=== PATIENT | female | born 1945 | race Caucasian/White ===

== ENCOUNTER 2018-04-09 16:10 | Outpatient (REF) | payer MEDICARE, OTHER, SELFPAY ==
[2018-04-09 21:59] LABS: COMMENT (LAB VIEW ONLY) 50.75 mg/dL; Microalb ug/mg Crea 13.2 ug/mg Cr
== END 2018-04-09 16:30 ==
LOC: NCHCN 16:10
PROVIDERS: PCP Internal Medicine; Visit Provider Internal Medicine
DX: E11.9 Type 2 diabetes mellitus without complications (principal); R51 Headache; F41.9 Anxiety disorder, unspecified; M85.571 Aneurysmal bone cyst, right ankle and foot
CPT/HCPCS: 82043; 82570

== ENCOUNTER 2019-10-19 14:45 | Outpatient (REF) | payer MEDICARE, OTHER, SELFPAY ==
[2019-10-19 21:05] LABS: COMMENT (LAB VIEW ONLY) 102.55 mg/dL; Microalb ug/mg Crea 18.4 ug/mg Cr
== END 2019-10-19 15:05 ==
LOC: NCHCN 14:45
PROVIDERS: PCP Internal Medicine; Visit Provider Internal Medicine
DX: E11.9 Type 2 diabetes mellitus without complications (principal)
CPT/HCPCS: 82043; 82570

== ENCOUNTER 2019-12-30 14:25 | Outpatient (REF) | payer MEDICARE, OTHER, SELFPAY ==
[2019-12-30 19:53] LABS: HCT 39.2 % (36.0-46.0); HGB 13.5 g/dL (12.0-15.5); Mean Corp. HGB Concentration 34.4 g/dL (32.0-36.0); Mean Corpuscular Hemoglobin 30.5 pg (27.0-33.0); Mean Corpuscular Volume 88.7 fL (80-95); Mean Platelet Volume 10.4 fL (8.0-11.0); Platelet Count 180 x1000/uL (130-400); RBC 4.42 m/cumm (4.00-5.20); RBC Distribution Width 13.2 % (11.7-14.6)
[2019-12-30 20:00] LABS: Anion Gap 7.6 mmol/L (3-11); BUN 17 mg/dL (7-18); CO2 27.4 mmol/L (21.0-32.0); CREATININE 0.96 mg/dL (0.55-1.02); Calcium 9.2 mg/dL (8.5-10.1); Chloride 102 mmol/L (98-107); Estimated GFR 56.81 (mL/min/1.73m2); Glucose 235 mg/dL (74-106); NT-proBNP 123 pg/mL (<300); Sodium 137 mmol/L (136-145)
[2019-12-30 20:02] LABS: Troponin I < 0.05 ng/mL (<0.06)
== END 2019-12-30 14:45 ==
LOC: NCHCN 14:25
PROVIDERS: PCP Internal Medicine; Visit Provider Internal Medicine
DX: I50.9 Heart failure, unspecified (principal); R06.01 Orthopnea
CPT/HCPCS: 80048; 85027; 83880; 84484

== ENCOUNTER 2020-07-25 17:46 | Outpatient (REF) | payer MEDICARE, OTHER, SELFPAY ==
[2020-07-25 20:28] LABS: MCH 30.8 pg (27.0-33.0); MCHC 34.1 % (32.0-36.0); MCV 90.1 fL (80-95); MPV 10.2 fL (8.0-11.0); Platelet Count 165 10^3/uL (130-400); RBC 4.55 10^6/uL (3.93-5.22); RDW 12.6 % (11.7-14.6); RDW-SD 41.4 fL; WBC 7.92 10^3/uL (4.4-10.8)
[2020-07-25 20:40] LABS: C-Reactive Protein 0.53 mg/dL (0.0-0.3)
[2020-07-25 21:00] LABS: ESR 20 mm/hr (0-30)
== END 2020-07-25 18:06 ==
LOC: NCHCN 17:46
PROVIDERS: PCP Internal Medicine; Visit Provider Internal Medicine
DX: M31.6 Other giant cell arteritis (principal); E11.9 Type 2 diabetes mellitus without complications
CPT/HCPCS: 85027; 85652; 86140

== ENCOUNTER 2021-02-07 19:01 | Outpatient (REF) | payer MEDICARE, MEDICAID, SELFPAY ==
[2021-02-07 19:47] LABS: HCT 40.7 % (36.0-46.0); MCHC 34.4 % (32.0-36.0); MCV 90.2 fL (80-95); MPV 10.4 fL (8.0-11.0); Platelet Count 191 10^3/uL (130-400); RBC 4.51 10^6/uL (3.93-5.22); RDW 12.9 % (11.7-14.6); RDW-SD 42.3 fL; WBC 6.95 10^3/uL (4.4-10.8)
[2021-02-07 20:24] LABS: D-Dimer 489 ng/mlFEU (<500)
== END 2021-02-07 19:02 | disposition home or self-care (01) ==
LOC: NCHCN 19:01
PROVIDERS: PCP Internal Medicine; Visit Provider Internal Medicine
DX: I26.99 Other pulmonary embolism without acute cor pulmonale (principal)
CPT/HCPCS: 85027; 85379

== ENCOUNTER 2021-03-27 16:15 | Outpatient (REF) | payer MEDICARE, MEDICAID, SELFPAY ==
[2021-03-27 20:25] LABS: D-Dimer 520 ng/mlFEU (<500)
== END 2021-03-27 16:16 | disposition home or self-care (01) ==
LOC: NCHCN 16:15
PROVIDERS: PCP Internal Medicine; Visit Provider Nurse Practitioner Family
DX: R07.9 Chest pain, unspecified (principal)
CPT/HCPCS: 85379

== ENCOUNTER 2021-04-11 19:46 | Outpatient (REF) | payer MEDICARE, MEDICAID, SELFPAY ==
[2021-04-13 15:08] LABS: COVID-19 RT-PCR UVMMC Result Negative (Negative)
== END 2021-04-11 19:47 | disposition home or self-care (01) ==
LOC: NCHCN 19:46
PROVIDERS: PCP Internal Medicine; Visit Provider Physician Assistant
DX: Z20.822 Contact with and (suspected) exposure to COVID-19 (principal); J06.9 Acute upper respiratory infection, unspecified
CPT/HCPCS: U0003; U0005

== ENCOUNTER 2021-08-08 11:43 | Outpatient (REF) | payer SELFPAY ==
--- NOTE | 2021-08-08 | DI.NM_ITS ---
APPROVED REPORT Exam: Pharmacologic Patient Location: In-Patient Room/Bed: [facility] Stress Nurse: Becca Angelo RN Ordering Provider:CALE SPENCER MD Contact Number: [phone] BMI: 25.96 Baseline Rhythm: Sinus Rhythm Comment: Flipped T waves leads V2 and V3 Indications: Chest pain Medical History Medical History: Hypertension, hyperlipidemia, asthma, diabetes, CVD Cardiac Medications: Aspirin, eliquis, metoprolol succinate, novalog, omeprazole, rosuvastatin, tresi ba insulin Allergies: bee sting, metformin, trulicity Cardiac Risk Factors: Hypertension, hyperlipidemia, asthma, diabetes, CVD, family hx Previous Cardiac Procedures: NIESHA x2 (-2017) Pretest Chest Pain Characteristics: baseline L side chest tightness 2/10 Exercise History: Sedentary Physical Disabilities: None Lung Sounds: Clear to auscultation Heart Sounds: Regular Stress Test Details Test: Pharmacologic stress testing performed using 0.4 mg of regadenoson per 5 mL given IV over 10 s econds. Reason for pharmacologic stress test: physical limitation. Nuclear Acquisition: Rest Tc-99m/Stress Tc-99m 1 day Rest Isotope: Tc-99m Sestamibi. Dose: 10.2 Date: 08/08/2021 Injection Time: 1045 Stress Isotope: Tc-99m Sestamibi. Dose: 32.1 Date: 08/08/2021 Injection Time: 1235 HR Resting HR Supine: 64 bpm Max Heart Rate (APMHR): 144.779667 bpm Target HR (85% APMHR): 122.669797 bpm Max HR Achieved: 96 bpm % of APMHR: 66.67 Recovery HR: 84 bpm Comment: Metoprolol succinate not held prior to testing. BP Resting BP Supine: 136/68 mmHg Max BP: 142/62 mmHg Recovery BP: 124/58 mmHg ECG Resting ECG: Sinus Rhythm, Flipped T waves leads V2 and V3 Ectopy: None Stress ECG: Sinus Rhythm, Flipped T waves leads V2 and V3 ST Change: No significant ST segment changes noted Arrhythmia: Rare PAC Recovery ECG: Sinus Rhythm, Flipped T waves leads V2 and V3 Recovery ST Change: No significant ST segment changes noted Recovery Arrhythmia: None Clinical Stress Symptoms: Chest burning, dyspnea, nausea Rate Pressure Product: [id number] Stress ECG Conclusion 1. Resting electrocardiogram showed nondiagnostic ST-T abnormalities 2. Patient underwent pharmacologic stress with regadenoson 3. Peak heart rate achieved was 66% of predicted for age 4. Electrocardiographically the test was nondiagnostic due to inadequate heart rate 5. No dysrhythmias were noted Stress Test Summary STAGE HR BP Symptoms NOTES Supine 64 136/68 1 min post Lexiscan injection 74 142/62 SpO2 95% Pt reported mild burning in chest, mild dyspnea 3 min post Lexiscan injection 89 136/56 SpO2 96% Burning in chest and dyspnea resolved. Pt reports mi ld nausea. 6 min post Lexiscan injection 84 124/58 SpO2 95% Nausea resolved. MPI Conclusion Normal myocardial perfusion without evidence of ischemia or prior infarction EF 71% Radiologist Interpretation Radiologist Interpretation by: Tang Girodano MD Interpretation Date/Time: 08/08/2021 17:00:17
[2021-08-08] MEDS: Regadenoson 0.4 MG/5 ML SYR IVP (14:40)
== END 2021-08-08 12:03 ==
LOC: DI 11:43
PROVIDERS: PCP Internal Medicine; Visit Provider Internal Medicine Interventional Cardiology
DX: R07.9 Chest pain, unspecified (principal); R94.31 Abnormal electrocardiogram [ECG] [EKG]; I10 Essential (primary) hypertension; E78.5 Hyperlipidemia, unspecified; J45.909 Unspecified asthma, uncomplicated; E11.9 Type 2 diabetes mellitus without complications; I25.10 Atherosclerotic heart disease of native coronary artery without angina pectoris; Z82.49 Family history of ischemic heart disease and other diseases of the circulatory system; R94.39 Abnormal result of other cardiovascular function study
CPT/HCPCS: 78452; 93016; 93018; 93017; J2785

== ENCOUNTER 2021-11-21 11:16 | Outpatient (REF) | payer MEDICARE, MEDICAID, SELFPAY ==
[2021-11-21 19:29] LABS: HCT 38.9 % (36.0-46.0); HGB 12.7 g/dL (11.2-15.7); MCH 29.7 pg (27.0-33.0); MCHC 32.6 % (32.0-36.0); MCV 91.1 fL (80-95); MPV 10.4 fL (8.0-11.0); Platelet Count 221 10^3/uL (130-400); RBC 4.27 10^6/uL (3.93-5.22); RDW-SD 42.6 fL; WBC 8.85 10^3/uL (4.4-10.8)
[2021-11-21 19:32] LABS: ESR 21 mm/hr (0-30)
[2021-11-21 20:01] LABS: C-Reactive Protein 2.47 mg/dL (0.0-0.3); Uric Acid 2.9 mg/dL (2.6-6.0)
[2021-11-21 20:45] LABS: Vitamin B12 382 pg/mL (193-986)
[2021-11-22 17:35] LABS: Rheumatoid Factor <8.6 IU/mL (<12.0)
[2021-11-22 20:01] LABS: Cyclic Citrullinated Peptide <2.5 U/mL (<5.0)
== END 2021-11-21 11:17 | disposition home or self-care (01) ==
LOC: NCHCN 11:16
PROVIDERS: PCP Internal Medicine; Visit Provider Internal Medicine
DX: M06.9 Rheumatoid arthritis, unspecified (principal); R26.89 Other abnormalities of gait and mobility; E11.9 Type 2 diabetes mellitus without complications; I10 Essential (primary) hypertension
CPT/HCPCS: 85027; 85652; 86200; 82607; 84550; 86140; 86431

== ENCOUNTER 2022-01-06 08:54 | Day surgery (SDC) | payer MEDICARE, MEDICAID, SELFPAY ==
--- NOTE | 2022-01-06 07:52 | W.ANESPRE ---
General Info Date of Service Date Performed: 01/06/22 Height: 5 ft 2 in Weight: 65.317 kg Body Mass Index (BMI): 26.3 Surgical Procedure: Operation Date: 01/06/22 11:40 Proposed Procedure Side Surgeon p Cataract Extraction with IOL Implant Right Billy Haile MD Meds Allergies and Home Medications Allergies Allergy/AdvReac Type Severity Reaction Status Date / Time bee venom protein (honey bee) Allergy Severe Anaphylaxis Verified 01/06/22 09:22 dulaglutide [From Trulicity] Allergy Intermediate Verified 01/06/22 09:22 ibuprofen Allergy Intermediate Verified 01/06/22 09:22 linagliptin [From Tradjenta] Allergy Intermediate Verified 01/06/22 09:22 metformin Allergy Mild Verified 01/06/22 09:22 pantoprazole Allergy Mild Verified 01/06/22 09:22 Home Medication Medication Instructions Recorded albuterol sulfate 90 mcg/actuation 2 puff inhalation DIRECTED PRN 01/02/22 aerosol inhaler (ProAir HFA) aspirin 81 mg tablet,delayed 81 mg PO DAILY 01/02/22 release epinephrine 0.3 mg/0.3 mL 0.3 mg IM DIRECTED 01/02/22 injection, auto-injector fluoxetine 20 mg capsule 20 mg PO DAILY 01/02/22 insulin aspart U-100 100 unit/mL 2 - 10 unit subcut BID 01/02/22 (3 mL) subcutaneous pen (Novolog Flexpen U-100 Insulin aspart) insulin glargine U-300 conc 300 100 unit subcut DAILY 01/02/22 unit/mL (1.5 mL) subcutaneous pen (Toujeo SoloStar U-300 Insulin) loratadine 10 mg disintegrating 10 mg PO DAILY 01/02/22 tablet (Claritin RediTabs) lorazepam 0.5 mg tablet 0.5 mg PO DAILY PRN 01/02/22 metoprolol succinate 25 mg 25 mg PO DAILY 01/02/22 tablet,extended release 24 hr omeprazole 20 mg capsule,delayed 20 mg PO DAILY 01/02/22 release rosuvastatin 40 mg tablet (Crestor) 40 mg PO DAILY 01/02/22 Current Visit Medications: Current Medications Generic Name Dose Route Start Last Admin Trade Name Freq PRN Reason Stop Dose Admin Acetaminophen 1,000 mg 01/06/22 06:00 Acetaminophen 500 Mg Tab PO 01/06/22 16:00 Q4H PRN PRN Miscellaneous Medication 0 ml 01/06/22 06:00 Prednisolone 1%, Moxifloxacin 0.5%, Nepafenac 0.1% 5ml Btl OD 01/06/22 16:00 DIRECTED [facility] Miscellaneous Medication 0 ml 01/06/22 06:00 Tropicam./Phenyleph. (1/2.5%) 5 Ml Btl OD 01/06/22 16:00 DIRECTED [facility] Tetracaine HCl 0 ml 01/06/22 06:00 Tetracaine 0.5% 4 Ml Btl OD 01/06/22 16:00 DIRECTED [facility] PFSH Medical History Medical History (Updated 01/06/22 @ 09:25 by Katharine Gil) Allergic rhinitis Atypical chest pain Pt. states she does not currently has this and it has been worked up CAD (coronary artery disease) Cataract Diabetes History of asthma Hx of gastroesophageal reflux (GERD) Rheumatoid arthritis Surgical History Surgical History (Updated 01/06/22 @ 09:22 by Katharine Gil) Hx of Achilles tendon repair Hx of cardiac catheterization 2018 Hx of hysterectomy Hx of tonsillectomy S/P PTCA (percutaneous transluminal coronary angioplasty) x2 stents-F/U with cardiology in [place] Tobacco Smoking/Tobacco Use Status: Never Alcohol Alcohol Intake: never Substance Use Substance use: Never Substance use type: does not use Vital Signs and Lab Results Lab Results Blood Type / Crossmatch: No Data to Display Complete Blood Count: No Data to Display Complete Metabolic Panel: No Data to Display Liver Function Panel: No Data to Display Coagulation Panel: No Data to Display Cardiac Panel: No Data to Display Arterial Blood Gas: No Data to Display Venous Blood Gas: No Data to Display Pancreas Panel: No Data to Display Thyroid Panel: No Data to Display Infectious Disease: No Data to Display Blood Cultures: No Data to Display Toxicology Panel: No Data to Display Imaging and Studies Imaging and Studies Study information below may be from another EMR and interpreted by another provider. Please see original notes in EMR for more complete details. Stress Test Summary: Stress ECG Conclusion 1. Resting electrocardiogram showed nondiagnostic ST-T abnormalities 2. Patient underwent pharmacologic stress with regadenoson 3. Peak heart rate achieved was 66% of predicted for age 4. Electrocardiographically the test was nondiagnostic due to inadequate heart rate 5. No dysrhythmias were noted Anesthesia Assessment and Plan Anesthesia History Personal History: No History of Anesthesia Complications Family History: No Family History of Anesthesia Complications Exercise Tolerance Exercise Tolerance: Metabolic Equivalents>4 Pertinent Negatives Pertinent Negatives: No Symptoms of GERD, No Major Pulmonary Symptoms or Complaints and No History of CVA/TIA Cardiac & Pulmonary Exam Cardiac Exam: Normal S1/S2 Heart Sounds Pulmonary Exam: Clear Bilateral Breath Sounds Implantable Cardiac Device Does patient have a Pacemaker or an ICD?: No Airway Exam Known Difficult Airway: No Mallampati Class: 2 Mouth Opening: Normal (> 3cm) Thyromental Distance: Greater than 3 cm Neck Range of Motion: Full ROM Neck Circumference: Normal Teeth Condition: Normal Dentition ASA Classification ASA Score: ASA 2 Emergency Case?: No NPO Status NPO Status: NPO Clears >2 hours, Solids >8 hours Anesthesia Plan Resuscitation Status: Full Code Anesthesia Technique: MAC Anesthesia Airway Planned: Natural Airway Monitors Used: Standard Monitors Preoperative Comments:: GERD incidental to food, well controlled now. No recent Asthma exacerbations. Patient would like an MKO.
[2022-01-06] MEDS: Tropicam./Phenyleph. (1/2.5%) 5 ML BTL OD ×3 (09:27→09:39)
[2022-01-06 09:28] VITALS: BP 146/65; PULSE 64; RESP 16; TEMP 36.3; O2SAT 98
[2022-01-06 09:40] VITALS: BMI 26.3
[2022-01-06] MEDS: Tetracaine 0.5% 4 ML BTL OD (10:30)
[2022-01-06] MEDS: Duovisc Viscoelastic System EACH 1 EACH (10:35)
[2022-01-06] MEDS: Balanced Salt Soln.-PLUS 500 ML BAG (10:35)
[2022-01-06] MEDS: Lidocaine 2% Jelly 6 ML SYR (10:35)
[2022-01-06] MEDS: Povidone-Iodine Ophth 30 ML BTL (10:35)
[2022-01-06 10:53] VITALS: BP 119/58; PULSE 68; RESP 16; TEMP 36.5; O2SAT 96
--- NOTE | 2022-01-06 10:54 | ROE_ITS ---
Date of service: 01/06/22 Time of Service: 09:54 Operative Note Operative Note DATE OF PROCEDURE: 01/06/22 PRE-OP DIAGNOSIS: Nuclear/cortical cataract, right eye POST-OP DIAGNOSIS: same PROCEDURE: Cataract extraction using phacoemulsification with intraocular lens implant, right eye SURGEON: Billy Haile ANESTHESIA TYPE: Local By Surgeon and MAC Refer to Anesthesia Record ESTIMATED BLOOD LOSS: 0 PATHOLOGY: none sent COMPLICATIONS: None Patient was transported to: same day Patient's condition: stable Implants: Santy & Santy/NBA Tecnis [id number] Indications: Progressive visual loss due to cataract, right eye Procedure Description: CATARACT SURGERY OPERATIVE REPORT PREOPERATIVE DIAGNOSIS: 1. Nuclear/cortical cataract, right eye POSTOPERATIVE DIAGNOSIS: Same OPERATION: 1. Cataract extraction using phacoemulsification with posterior chamber intraocular lens implant, right eye. IOL: IOL Upper Cutter Machine/Model: Santy & Santy / NBA Tecnis [id number] IOL Power: + 22.5 diopters IOL Serial Number: [id number] Optic Diameter: 6.0mm Haptic/Overall Diameter: 13.0mm PHACO INFO: JhonOpen Utilityurion Vision System with OZil and Active Fluidics Cumulative Dispersed Energy (CDE): 10.54 seconds SURGEON: Billy Haile MD, JEOVANY ANESTHESIA: Monitored Anesthesia Care (MAC), with local sub-tenon's anesthetic infiltration COMPLICATIONS: None SPECIMENS: None INDICATIONS FOR PROCEDURE: The patient is a 76-year-old lady with a history of diminished visual acuity in her right eye secondary to the development of nuclear/cortical cataract. The option of cataract surgery was offered to the patient and she wished to proceed. PROCEDURE: The correct surgical eye was identified and marked as the right eye and the pupil was dilated in the preoperative area using mydriatics and cycloplegics. The dilated pupil size was 7.0 mm. Oral sedation was administered in the form of an Imprimis MKO Melt (midazolam 3mg/ketamine 25mg/ondansetron 2mg). The patient was brought to the operating room where cardiopulmonary monitoring was instituted and surgical time-out was performed, confirming the correct operative eye and IOL power. Topical anesthesia was administered and ophthalmic povidone-iodine 5% was instilled into the conjunctival fornices. Lidocaine gel was applied to the cornea and the will-ocular area was prepped with Betadine 10% solution and draped in the usual sterile fashion for intraocular surgery, including an aperture drape. A Tegaderm transparent film dressing was cut in half and used to cover the lashes and lid margins. Care was taken to sequester the lashes and lid margins under the Tegaderm dressing. A lid speculum was placed between the lids of the operative eye and the Jhon LuxOR Revalia operating microscope was maneuvered into position. Maria Del Rosario scissors were then used to make a conjunctival buttonhole approximately 6mm posterior to the limbus in the inferonasal quadrant. Blunt dissection was carried out to expose bare sclera, and a blunt-tipped sub-tenon?s anesthesia cannula was introduced and passed posteriorly along the globe where non- preserved plain lidocaine was injected into posterior sub-Tenon?s space. A sideport knife was used to make a paracentesis port inferotemporally. Intraocular phenylephrine/lidocaine was injected into the anterior chamber. The anterior chamber was filled with viscoelastic. A 2.4mm keratome knife was used to construct a 2-plane near-clear corneal tunnel extending 2.0mm into clear cornea superiortemporally. A flap was raised on the anterior capsule and capsulorhexis forceps were used to complete a continuous curvilinear capsulorhexis of 5.5 mm. Balanced salt solution was then used to perform cortical cleaving hydrodissection and nuclear hydrodelineation until the lens could be freely rotated within the capsular bag. The lens nucleus was then disassembled and removed within the capsular bag and iris plane using phacoemulsification. Residual cortical material was removed using the I/A handpiece. The posterior capsule was carefully polished to remove as much residual lens epithelial cells as safely possible. The capsular bag was then inflated and the anterior chamber deepened with viscoelastic. The lens implant described above was inserted into the capsular bag using the NBA [place] Injector. A Kuglen hook was used to dial the IOL into position. Residual viscoelastic was then removed first from posterior to the IOL, then from the anterior chamber using the I/A handpiece. The lens implant was noted to center nicely within the capsular bag. The incisions were stromally hydrated, and the anterior chamber was reformed using BSS. Then 0.5cc of moxifloxacin 1.0mg/ml were injected into the capsular bag and anterior chamber. The incisions were checked with a Weck spear and found to be secure. Several drops of ophthalmic povidone-iodine 5% were then applied to the eye followed by two drops of Imprimis combination prednisolone/moxifloxacin/nepafenac solution. The drapes were removed and a clear plastic protective eye shield was placed over the eye. The patient was then returned to Same Day Surgery in stable condition.
--- NOTE | 2022-01-06 10:54 | PDOC.DSDIS_ITS ---
Discharge Plan Disposition Patient Disposition: HOME Condition: Good Discharge Details Attending Provider: Billy Haile Primary Care Provider: Tang Laurent [place] Meds and New Rx's Prescriptions: No Action loratadine [Claritin RediTabs] 10 mg Tablet,Disintegrating 10 mg PO DAILY aspirin [Aspir-Low] 81 mg Tablet,Delayed Release (Dr/Ec) 81 mg PO DAILY lorazepam 0.5 mg Tablet 0.5 mg PO DAILY PRN omeprazole 20 mg Capsule,Delayed Release(Dr/Ec) 20 mg PO DAILY metoprolol succinate 25 mg Tablet Extended Release 24 Hr 25 mg PO DAILY epinephrine [Epi E-Z Pen] 0.3 mg/0.3 mL Auto-Injector 0.3 mg IM DIRECTED Rx Instructions: as a single dose; may repeat once albuterol sulfate [ProAir HFA] 90 mcg/actuation Hfa Aerosol Inhaler 2 puff INHALATION DIRECTED PRN fluoxetine 20 mg Capsule 20 mg PO DAILY insulin aspart U-100 [Novolog Flexpen U-100 Insulin] 100 unit/mL (3 mL) Insulin Pen 2 - 10 unit SUBCUT BID rosuvastatin [Crestor] 40 mg Tablet 40 mg PO DAILY Toujeo SoloStar U-300 Insulin 300 unit/mL (1.5 mL) Insulin Pen 100 unit SUBCUT DAILY Discharge Instructions Stand Alone Forms: Post-op Topical Cataract, Winifred Rich ([facility]) Discharge Orders Discharge Orders: Discharge Order (Routine); Ordered 01/06/22 Ordered By: Billy Haile DS: Diagnosis Discharge Diagnosis (1) Cortical cataract of right eye: Status: Resolved (2) Nuclear sclerotic cataract of right eye: Status: Resolved
[2022-01-06 11:29] VITALS: BP 105/49; PULSE 78; RESP 16; TEMP 36.5; O2SAT 94
--- NOTE | 2022-01-06 12:38 | W.ANESPOSTOP ---
Postoperative Evaluation Date, Time and Location Date Performed: 01/06/22 Time Performed: 12:37 Patient Location: Day Surgery Unit Vital Signs Most Recent Imported Vital Signs: Most Recent Vital Signs Temp Pulse Resp BP Pulse Ox 36.5 C 68 16 119/58 L 96 01/06/22 10:53 01/06/22 10:53 01/06/22 10:53 01/06/22 10:53 01/06/22 10:53 Pain Score Most Recent Pain Score: Most Recent Pain Score Pain Level 0 01/06/22 10:53 Assessment Mental Status: Awake (Alert & Oriented to Patient Baseline) Airway and Respiratory Function: Patent airway with normal (patient baseline) respiratory exam Cardiovascular Function: Hemodynamically Stable Hydration Status: Adequately Hydrated Nausea & Vomiting: No Nausea or Vomiting Pain: Pt. Denies Any Pain Peripheral Nerve Block: Other (Local by Dr. Haile) Postoperative Comments:: Patient seen earlier today in [facility]. Denied questions and was happy with care.
== END 2022-01-06 11:34 | disposition home or self-care (01) ==
PROVIDERS: PCP Internal Medicine; Visit Provider Ophthalmology
PROC: (CPT 66984; principal; 2022-01-06 11:30)
DX: H25.11 Age-related nuclear cataract, right eye (principal); I25.10 Atherosclerotic heart disease of native coronary artery without angina pectoris; E11.9 Type 2 diabetes mellitus without complications
CPT/HCPCS: 66984; V2632

== ENCOUNTER 2022-01-20 08:00 | Day surgery (SDC) | payer MEDICARE, MEDICAID, SELFPAY ==
--- NOTE | 2022-01-20 06:25 | ANES.PREOP_ITS ---
General Info Date of Service Date Performed: 01/20/22 Height: 5 ft 2 in Weight: 65.1 kg Body Mass Index (BMI): 26.2 Surgical Procedure: Operation Date: 01/20/22 10:40 Proposed Procedure Side Surgeon p Cataract Extraction with IOL Implant Left Billy Haile MD Meds Allergies and Home Medications Allergies Allergy/AdvReac Type Severity Reaction Status Date / Time bee venom protein (honey bee) Allergy Severe Anaphylaxis Verified 01/20/22 08:32 ibuprofen Allergy Intermediate Hives Verified 01/20/22 08:32 linagliptin [From Tradjenta] Allergy Intermediate Migraines Verified 01/20/22 08:32 dulaglutide [From Trulicity] AdvReac Intermediate Migraines Verified 01/20/22 08:32 metformin AdvReac Mild Diarrhea Verified 01/20/22 08:32 Home Medication Medication Instructions Recorded albuterol sulfate 90 mcg/actuation 2 puff inhalation DIRECTED PRN 01/02/22 aerosol inhaler (ProAir HFA) aspirin 81 mg tablet,delayed 81 mg PO DAILY 01/02/22 release epinephrine 0.3 mg/0.3 mL 0.3 mg IM DIRECTED 01/02/22 injection, auto-injector fluoxetine 20 mg capsule 20 mg PO DAILY 01/02/22 insulin aspart U-100 100 unit/mL 2 - 10 unit subcut BID 01/02/22 (3 mL) subcutaneous pen (Novolog Flexpen U-100 Insulin aspart) insulin glargine U-300 conc 300 100 unit subcut DAILY 01/02/22 unit/mL (1.5 mL) subcutaneous pen (Toujeo SoloStar U-300 Insulin) loratadine 10 mg disintegrating 10 mg PO DAILY 01/02/22 tablet (Claritin RediTabs) lorazepam 0.5 mg tablet 0.5 mg PO DAILY PRN 01/02/22 metoprolol succinate 25 mg 25 mg PO DAILY 01/02/22 tablet,extended release 24 hr omeprazole 20 mg capsule,delayed 20 mg PO DAILY 01/02/22 release rosuvastatin 40 mg tablet (Crestor) 40 mg PO DAILY 01/02/22 Current Visit Medications: Current Medications Generic Name Dose Route Start Last Admin Trade Name Freq PRN Reason Stop Dose Admin Acetaminophen 1,000 mg 01/20/22 06:00 Acetaminophen 500 Mg Tab PO Q4H PRN PRN Miscellaneous Medication 0 ml 01/20/22 06:00 Prednisolone 1%, Moxifloxacin 0.5%, Nepafenac 0.1% 5ml Btl OS DIRECTED ROBERT Miscellaneous Medication 0 ml 01/20/22 06:00 Tropicam./Phenyleph. (1/2.5%) 5 Ml Btl OS DIRECTED ROBERT Tetracaine HCl 0 ml 01/20/22 06:00 Tetracaine 0.5% 4 Ml Btl OS DIRECTED ROBERT PFSH Active Problems Active Problems: Problem Status Onset Code Cortical cataract of right eye H26.9 Nuclear sclerotic cataract of right eye H25.11 Medical History Medical History (Updated 01/06/22 @ 09:25 by Katharine Gil) Allergic rhinitis Atypical chest pain Pt. states she does not currently has this and it has been worked up CAD (coronary artery disease) Cataract Diabetes History of asthma Hx of gastroesophageal reflux (GERD) Rheumatoid arthritis Surgical History Surgical History (Updated 01/20/22 @ 08:36 by Anahi Burgess) H/O elbow surgery H/O rotator cuff surgery Hx of Achilles tendon repair Hx of cardiac catheterization 2018 Hx of hysterectomy Hx of tonsillectomy S/P PTCA (percutaneous transluminal coronary angioplasty) x2 stents-F/U with cardiology in [place] Tobacco Smoking/Tobacco Use Status: Never Alcohol Alcohol Intake: never Substance Use Substance use: Never Substance use type: does not use Vital Signs and Lab Results Vital Signs Most Recent Vital Signs in EMR: Temp Pulse Resp BP Pulse Ox 36.6 C 71 16 129/54 L 96 01/20/22 08:27 01/20/22 08:27 01/20/22 08:27 01/20/22 08:27 01/20/22 08:27 Lab Results Blood Type / Crossmatch: No Data to Display Complete Blood Count: No Data to Display Complete Metabolic Panel: No Data to Display Liver Function Panel: No Data to Display Coagulation Panel: No Data to Display Cardiac Panel: No Data to Display Arterial Blood Gas: No Data to Display Venous Blood Gas: No Data to Display Pancreas Panel: No Data to Display Thyroid Panel: No Data to Display Infectious Disease: No Data to Display Blood Cultures: No Data to Display Toxicology Panel: No Data to Display Imaging and Studies Imaging and Studies Study information below may be from another EMR and interpreted by another provider. Please see original notes in EMR for more complete details. Stress Test Summary: 08/2021: normal perfusion, EF 71%. Stress ECG Conclusion 1. Resting electrocardiogram showed nondiagnostic ST-T abnormalities 2. Patient underwent pharmacologic stress with regadenoson 3. Peak heart rate achieved was 66% of predicted for age 4. Electrocardiographically the test was nondiagnostic due to inadequate heart rate 5. No dysrhythmias were noted Anesthesia Assessment and Plan Anesthesia History Personal History: No History of Anesthesia Complications Family History: No Family History of Anesthesia Complications Exercise Tolerance Exercise Tolerance: Metabolic Equivalents>4 Cardiac & Pulmonary Exam Cardiac Exam: Normal S1/S2 Heart Sounds Pulmonary Exam: Clear Bilateral Breath Sounds Implantable Cardiac Device Does patient have a Pacemaker or an ICD?: No Airway Exam Known Difficult Airway: No Mallampati Class: 2 Mouth Opening: Normal (> 3cm) Thyromental Distance: Greater than 3 cm Neck Range of Motion: Full ROM Neck Circumference: Normal Teeth Condition: Normal Dentition ASA Classification ASA Score: ASA 3 Emergency Case?: No NPO Status NPO Status: NPO Clears >2 hours, Solids >8 hours Anesthesia Plan Resuscitation Status: Full Code Anesthesia Technique: MAC Anesthesia Airway Planned: Natural Airway Monitors Used: Standard Monitors Preoperative Comments:: 76 yo female for cataract removal. Sig PMHx: GERD (food related, well controlled), CAD (2 stents 2018) Previous Cat: MKO. But recalls that they had a hard time getting her out of here and her being awake. Would still like sedation, will do MKO 1/2 tab
[2022-01-20 08:27] VITALS: BP 129/54; PULSE 71; RESP 16; TEMP 36.6; O2SAT 96
[2022-01-20 08:29] VITALS: BMI 26.2
[2022-01-20] MEDS: Tropicam./Phenyleph. (1/2.5%) 5 ML BTL OS ×3 (08:39→08:51)
[2022-01-20] MEDS: Tetracaine 0.5% 4 ML BTL OS (10:11)
[2022-01-20] MEDS: Balanced Salt Soln.-PLUS 500 ML BAG (10:13)
[2022-01-20] MEDS: Duovisc Viscoelastic System EACH 1 EACH (10:13)
[2022-01-20] MEDS: Lidocaine 2% Jelly 6 ML SYR (10:20)
[2022-01-20 10:23] VITALS: BP 116/53; PULSE 72; RESP 14; TEMP 36.4; O2SAT 95
[2022-01-20] MEDS: Povidone-Iodine Ophth 30 ML BTL (10:23)
--- NOTE | 2022-01-20 10:25 | W.PM.DSUDISC ---
Discharge Plan Disposition Patient Disposition: HOME Condition: Good Discharge Details Attending Provider: Billy Haile Primary Care Provider: Tang Ling Home Meds and New Rx's Prescriptions: No Action loratadine [Claritin RediTabs] 10 mg Tablet,Disintegrating 10 mg PO DAILY aspirin [Aspir-Low] 81 mg Tablet,Delayed Release (Dr/Ec) 81 mg PO DAILY lorazepam 0.5 mg Tablet 0.5 mg PO DAILY PRN omeprazole 20 mg Capsule,Delayed Release(Dr/Ec) 20 mg PO DAILY metoprolol succinate 25 mg Tablet Extended Release 24 Hr 25 mg PO DAILY epinephrine [Epi E-Z Pen] 0.3 mg/0.3 mL Auto-Injector 0.3 mg IM DIRECTED Rx Instructions: as a single dose; may repeat once albuterol sulfate [ProAir HFA] 90 mcg/actuation Hfa Aerosol Inhaler 2 puff INHALATION DIRECTED PRN fluoxetine 20 mg Capsule 20 mg PO DAILY insulin aspart U-100 [Novolog Flexpen U-100 Insulin] 100 unit/mL (3 mL) Insulin Pen 2 - 10 unit SUBCUT BID rosuvastatin [Crestor] 40 mg Tablet 40 mg PO DAILY Toujeo SoloStar U-300 Insulin 300 unit/mL (1.5 mL) Insulin Pen 100 unit SUBCUT DAILY Discharge Instructions Stand Alone Forms: Post-op Topical Cataract, Winifred Rich ([facility]) Discharge Orders Discharge Orders: Discharge Order (Routine); Ordered 01/20/22 Ordered By: Billy Haile DS: Diagnosis Discharge Diagnosis (1) Cortical cataract of left eye: Status: Resolved (2) Nuclear sclerotic cataract of left eye: Status: Resolved
--- NOTE | 2022-01-20 10:26 | W.PM.OP ---
Date of service: 01/20/22 Time of Service: 10:28 Operative Note Operative Note DATE OF PROCEDURE: 01/20/22 PRE-OP DIAGNOSIS: Nuclear/cortical cataract, left eye POST-OP DIAGNOSIS: same PROCEDURE: Cataract extraction using phacoemulsification with intraocular lens implant, left eye SURGEON: Billy Haile ANESTHESIA TYPE: Local By Surgeon and MAC Refer to Anesthesia Record PATHOLOGY: none sent COMPLICATIONS: None Patient was transported to: same day Patient's condition: stable Implants: Sant[employer] Sant[employer] / [employer] Tecnis [id number] Indications: Progressive decreased vision due to cataract, left eye Procedure Description: CATARACT SURGERY OPERATIVE REPORT PREOPERATIVE DIAGNOSIS: 1. Nuclear/cortical cataract, left eye POSTOPERATIVE DIAGNOSIS: Same OPERATION: 1. Cataract extraction using phacoemulsification with posterior chamber intraocular lens implant, left eye. IOL: IOL Plasma Specialist/Model: Sant[employer] Sant[employer] / [employer]ecnis [id number] IOL Power: + 22.5 diopters IOL Serial Number: [id number] Optic Diameter: 6.0 mm Haptic/Overall Diameter: 13.0 mm PHACO INFO: [employer]son Vision System with OZil and [employer] Cumulative Dispersed Energy (CDE): 7.33 seconds SURGEON: Billy Haile MD, JEOVANY ANESTHESIA: Monitored A [facility] (MAC), with local sub-tenon's anesthetic infiltration COMPLICATIONS: None SPECIMENS: None INDICATIONS FOR PROCEDURE: The patient is a 76-year-old lady with history of diminished visual acuity in both eyes secondary to the development of bilateral cataracts. She has already undergone cataract surgery in the right eye and is doing well postoperatively. She now presents for cataract surgery in the left eye. PROCEDURE: The correct surgical eye was identified and marked as the left eye and the pupil was dilated in the preoperative area using mydriatics and cycloplegics. The dilated pupil size was 7.0 mm. Oral sedation was administered in the form of one half of an Imprimis MKO Melt (midazolam 3mg/ketamine 25mg/ondansetron 2mg). The patient was brought to the operating room where cardiopulmonary monitoring was instituted and surgical time-out was performed, confirming the correct operative eye and IOL power. Topical anesthesia was administered and ophthalmic povidone-iodine 5% was instilled into the conjunctival fornices. Lidocaine gel was applied to the cornea and the will-ocular area was prepped with Betadine 10% solution and draped in the usual sterile fashion for intraocular surgery, including an aperture drape. A Tegaderm transparent film dressing was cut in half and used to cover the lashes and lid margins. Care was taken to sequester the lashes and lid margins under the Tegaderm dressing. A lid speculum was placed between the lids of the operative eye and the Jhon Lux[employer] Revalia operating microscope was maneuvered into position. Maria Del Rosario scissors were then used to make a conjunctival buttonhole approximately 6mm posterior to the limbus in the inferonasal quadrant. Blunt dissection was carried out to expose bare sclera, and a blunt-tipped sub-tenon?s anesthesia cannula was introduced and passed posteriorly along the globe where non-preserved plain lidocaine was injected into posterior sub-Tenon?s space. A sideport knife was used to make a paracentesis port superiorly/superiortemporally. Intraocular phenylephrine/lidocaine was injected int the anterior chamber.. The anterior chamber was filled with viscoelastic. A 2.4mm keratome knife was used to construct a 2-plane near-clear corneal tunnel extending 2.0mm into clear cornea temporally. A flap was raised on the anterior capsule and capsulorhexis forceps were used to complete a continuous curvilinear capsulorhexis of 5.0 mm. Balanced salt solution was then used to perform cortical cleaving hydrodissection and nuclear hydrodelineation until the lens could be freely rotated within the capsular bag. The lens nucleus was then disassembled and removed within the capsular bag and iris plane using phacoemulsification. Residual cortical material was removed using the 45-degree angled silicone I/A tip with 0.3mm port. The posterior capsule was carefully polished to remove as much residual lens epithelial cells as safely possible. The capsular bag was then inflated and the anterior chamber deepened with viscoelastic. The lens implant described above was inserted into the capsular bag using the NBA [place] Injector. A Kuglen hook was used to dial the IOL into position. Residual viscoelastic was then removed first from posterior to the IOL, then from the anterior chamber using the I/A handpiece. The lens implant was noted to center nicely within the capsular bag. The incisions were stromally hydrated, and the anterior chamber was reformed using BSS. Then 0.5cc of moxifloxacin 1.0mg/ml were injected into the capsular bag and anterior chamber. The incisions were checked with a Weck spear and found to be secure. Several drops of ophthalmic povidone-iodine 5% were then applied to the eye followed by two drops of Imprimis combination prednisolone/moxifloxacin/nepafenac solution. The drapes were removed and a clear plastic protective eye shield was placed over the eye. The patient was then returned to Same Day Surgery in stable condition.
--- NOTE | 2022-01-20 10:29 | W.ANESPOSTOP ---
Postoperative Evaluation Date, Time and Location Date Performed: 01/20/22 Time Performed: 10:30 Patient Location: Day Surgery Unit Vital Signs Most Recent Imported Vital Signs: Most Recent Vital Signs Temp Pulse Resp BP Pulse Ox 36.4 C L 72 14 116/53 L 95 01/20/22 10:23 01/20/22 10:23 01/20/22 10:23 01/20/22 10:23 01/20/22 10:23 Pain Score Most Recent Pain Score: Most Recent Pain Score Pain Level 0 01/20/22 10:23 Assessment Mental Status: Awake (Alert & Oriented to Patient Baseline) Airway and Respiratory Function: Patent airway with normal (patient baseline) respiratory exam Cardiovascular Function: Hemodynamically Stable Hydration Status: Adequately Hydrated Nausea & Vomiting: No Nausea or Vomiting Pain: Pt. Denies Any Pain Peripheral Nerve Block: Patient did not receive a nerve block
[2022-01-20 10:47] VITALS: BP 115/58; PULSE 71; RESP 16; TEMP 36.5; O2SAT 97
== END 2022-01-20 10:56 | disposition home or self-care (01) ==
PROVIDERS: PCP Internal Medicine; Visit Provider Ophthalmology
PROC: (CPT 66984; principal; 2022-01-20 10:30)
DX: H25.12 Age-related nuclear cataract, left eye (principal); E11.9 Type 2 diabetes mellitus without complications; I25.10 Atherosclerotic heart disease of native coronary artery without angina pectoris
CPT/HCPCS: 66984; V2632

== ENCOUNTER 2022-06-04 23:21 | Outpatient (REF) | payer MEDICARE, MEDICAID, SELFPAY ==
[2022-06-04 21:00] LABS: Abs Immature Grans 0.02 10^3/uL (0.0-0.06); Absolute Basophil Count 0.05 10^3/uL (0.0-0.2); Absolute Lymphocyte Count 1.54 10^3/uL (1.2-3.4); Absolute Monocyte Count 0.44 10^3/uL (0.1-0.8); Absolute Neutrophil Count 5.38 10^3/uL (1.2-6.7); Basophils % 0.7; Eosinophils % 1.3; HCT 39.9 % (36.0-46.0); HGB 13.7 g/dL (11.2-15.7); Immature Grans % 0.3; Lymphocytes % 20.5; MCH 30.6 pg (27.0-33.0); MCHC 34.3 % (32.0-36.0); MCV 89 fL (80-95); Monocytes % 5.8; Neutrophils % 71.4; RBC 4.48 10^6/uL (3.93-5.22); RDW 13.2 % (11.7-14.6); WBC 7.53 10^3/uL (4.4-10.8)
[2022-06-04 21:04] LABS: C-Reactive Protein 0.21 mg/dL (0.0-0.3)
[2022-06-04 21:06] LABS: ESR 8 mm/hr (0-30)
[2022-06-04 21:54] LABS: Diff Comment PLT Morph Reviewed
== END 2022-06-04 23:22 | disposition home or self-care (01) ==
LOC: NCHCN 23:21
PROVIDERS: PCP Internal Medicine; Visit Provider Nurse Practitioner Family
DX: G50.1 Atypical facial pain (principal)
CPT/HCPCS: 85652; 85025; 86140

== ENCOUNTER 2024-01-07 21:47 | Outpatient (REF) | payer MEDICARE, MEDICAID, SELFPAY ==
[2024-01-07 19:26] LABS: Anion Gap 8.9 mmol/L (3-11); BUN 17 mg/dL (7-18); CO2 28.1 mmol/L (21.0-32.0); CREATININE 1.1 mg/dL (0.55-1.02); Calcium 9.2 mg/dL (8.5-10.1); Chloride 103 mmol/L (98-107); Estimated GFR 51.43 (mL/min/1.73m2); Glucose 154 mg/dL (74-106); Potassium 3.8 mmol/L (3.5-5.1); Sodium 140 mmol/L (136-145)
== END 2024-01-07 21:48 | disposition home or self-care (01) ==
LOC: NCHCN 21:47
PROVIDERS: PCP Internal Medicine; Visit Provider Internal Medicine
DX: E87.6 Hypokalemia (principal)
CPT/HCPCS: 80048

== ENCOUNTER 2024-05-02 14:06 | Outpatient (REF) | payer MEDICARE, SELFPAY ==
--- OUTSIDE RECORDS SUMMARY | 2024-05-02 14:21 | XMS_ITS | Continuity of Care Document ---
Author Organization [facility] Address [address] [place] [address] Care Team Providers Care Patient Representative Name Role Phone Primeau IPHC, Tang Alves Primary Care Physician Encounter [facility] Date(s): 12/17/23 - 12/17/23 [facility] [address] [place] [address] Encounter Diagnosis CAD (coronary artery disease)(Discharge Diagnosis) - 12/16/23 Edema(Discharge Diagnosis) - 12/17/23 Discharge Disposition: Home or Self Care Attending Physician: Faustina Andrews NP Allergies, Adverse Reactions, Alerts Substance Reaction Severity Status BEE VENOM PROTEIN (HONEY BEE) Unknown Active ibuprofen Urticaria Unknown Active metFORMIN Diarrhoea Moderate Active linagliptin Head pain Moderate Active Assessment and Plan Extracted from: Title:Cardiology Clinic - Office Visit Note Auth or:Faustina Andrews NP Date:12/17/23 CAD (coronary artery disease )??I25.10 Actions: COMPLETED - 57289 Office/Outpatient Visit - Established Patient, Level 3 (20-29 min)., 12/17/23 13:41:00 EDT, CAD (coronary artery disease) INPROCESS - CV ECG Clinic, 12/17/23 13:44:00 EDT, Routine, Reason: Other (please specify), Stop date and time 12/17/23 13:44:00 EDT, CAD (coronary artery disease), ORD_SET_REQ_DT_RANGE, Cerner's Internal Person Id ?? Edema??R60.9 Actions: ORDERED - torsemide, 40 mg = 2 tab, Oral, Daily, # 180 tab, 3 Refill(s), Pharmacy: [id number], 154.94, cm, 12/17/23 13:44:00 EDT, Height, 64.86, kg, 12/17/23 13:56:00 EDT, Weight Dosing FUTURE - Basic Metabolic Panel, Blood, Routine, 12/28/23, Once, Lab Collect, Edema, Order for future visit ?? Additional Actions: FUTURE - EVENT MONITORING PHYSICIAN, 12/17/23, Other, Please Specify, 14 days, Order for future visit, Dizziness FUTURE - Follow-Up Appointment Request NCTY, *Est. 02/16/24 +/- 14 days, Future Order, In Approximately, [facility] Future Appointments Future Scheduled Tests Laboratory* Basic Metabolic Panel 12/28/23 Immunizations Given and Recorded Vaccine Date Status Refusal Reason influenza virus vaccine, inactivated 05/05/11 Tim rded influenza virus vaccine, inactivated 05/28/10 Tim rded Medications aspirin 81 mg =, Daily, 0 Refill(s) Start Date: 02/15/22 Status: Ordered Claritin Reditab 5 mg oral tablet, disintegrating 5 mg = 1 tab, Oral, Daily, PRN as needed for allergy symptoms, # 90 tab, 0 Refill(s) Start Date: 04/30/23 Status: Ordered colchicine 0.6 mg oral tablet 1.2 mg = 2 tab, Oral, Once, at first sign of gout flare followed by 1 tablet in 1 hour, # 10 tab, 0Refill(s) Start Date: 04/30/23 Status: Ordered FLUoxetine 20 mg oral capsule 20 mg = 1 cap, Oral, Daily, # 30 cap, 0 Refill(s) Start Date: 04/30/23 Status: Ordered HumaLOG Cartridge 100 units/mL injectable solution 10 units =, Subcutaneous, TID(AC), if eating more increase by 2 units if eating less decrease by 2 units, 0 Refill(s) Start Date: 04/30/23 Status: Ordered metoprolol succinate 50 mg oral capsule, extended release 50 mg = 1 cap, Oral, Daily, # 90 cap, 0 Refill(s) Start Date: 04/30/23 Status: Ordered omeprazole 20 mg oral delayed release capsule 20 mg = 1 cap, Oral, Daily, PRN heartburn, # 90 cap, 0 Refill(s) Start Date: 04/30/23 Status: Ordered Plavix 75 mg oral tablet 75 mg = 1 tab, Oral, Daily, # 30 tab, 12 Refill(s), Pharmacy: [id number], 157, cm, 04/28/23 13:43:00 EDT, Height/Length Dosing, 63.5, kg, 04/28/23 13:43:00 EDT, Weight Dosing Start Date: 04/30/23 Status: Ordered ProAir HFA 90 mcg/inh inhalation aerosol 2 puffs, Inhale, every 4 hr, PRN as needed for wheezing, # 8.5 g, 0 Refill(s) Start Date: 04/30/23 Status: Ordered pyridoxine 50 mg oral tablet 50 mg = 1 tab, Oral, Daily, PRN headache, 0 Refill(s) Start Date: 04/30/23 Status: Ordered rosuvastatin 40 mg oral tablet 40 mg = 1 tab, Oral, Daily, # 90 tab, 0 Refill(s) Start Date: 04/30/23 Status: Ordered torsemide 20 mg oral tablet 40 mg = 2 tab, Oral, Daily, # 180 tab, 3 Refill(s), Pharmacy: [id number], 154.94, cm, 12/17/23 13:44:00 EDT, Height, 64.86, kg, 12/17/23 13:56:00 EDT, Weight Dosing Start Date: 12/17/23 Status: Ordered Toujeo Max SoloStar 300 units/mL subcutaneous solution 45 units =, Subcutaneous, Daily, 0 Refill(s) Start Date: 04/30/23 Status: Ordered Problem List Condition Confirmation Course Effective Dates Status Health St atus Informant Chest pain, rule out acute myocardial infarction Confirmed Active CAD (coronary artery disease) Confirmed Active Vital Signs Most recent to oldest [Reference Range]: 1 Peripheral Pulse Rate [60-100 bpm] 83 bp m (12/17/23 1:44 PM) Blood Pressure [90-140/60-90 mmHg] 150/7 3mmHg *HI* (12/17/23 1:44 PM) Mean Arterial Pressure, Cuff [65-140 mmH g] 99 mmHg (12/17/23 1:44 PM) Weight 64.86 kg (12/17/23 1:44 PM) Weight Measured (lbs) 142.992 lb (12/17/23 1:44 PM) Weight Dosing 64.860 kg (12/17/23 1:44 PM) Height 154.94 cm (12/17/23 1:44 PM) Height/Length Measured (inches) 61 inch (12/17/23 1:44 PM) BSA Measured 1.67 m2 (12/17/23 1:44 PM) Body Mass Index 27.02 kg/m2 (12/17/23 1:44 PM) Social History Social History Type Response Tobacco Never tobacco user T obacco Use:. Sex Female Physician Outpatient Note * Faustina Andrews ELECTRICAL SOLDERER: PERFORM Event Display: Office Clinic Note Physician Authored Date: [id number] CRYSTAL BARRIENTOS :1945 Age:78 years Sex:Female Visit Date:12/17/2023 Primary Care Physician: Anuradha HEBERT, Tang Alves MD History of Present Illness Cardiac Problems: 1.Chest pain 2.?? Hypertension 3.?? Coronary artery disease-status post PCI to LAD 2018 at -,??metoprolol 50 mg, aspirin 81 mg, Plavix 75 mg,??rosuvastatin 40 mg 4.?? Hyperlipidemia 5.?? Diabetes mellitus 6.Palpitations 7. Pulmonary Embolism 8.DVT ?? This is a 78-year-old female that I last saw in the office on 08/05/2023??for??coronary artery disease, chest pain, dyspnea,??dizziness??and history of pulmonary embolism,??hypertension, hyperlipidemia and??DVTs.?At her last appointment she was??reporting 8 out of 10 pressure??in her chest??with nausea and presyncope??as well as worsening dyspnea.?Her echocardiogram and Lexiscan were reassuring??prior to this appointment.?She was symptomatic and on a cardioprotective medication regimen??which led us to believe this does unstable angina??and we recommended??a left heart catheterization at [facility].?Left heart catheterization??showed Left main mild diffuse, LAD proximal 90%, distal 75%, left circumflex mild diffuse, right coronary artery mild diffuse.?PCI to LAD with good result.?[place] unwell with low-grade fever and elevated white blood cells on postop day 1, chest x-ray and UA were normal.?We have not done the Zio??and this can be ordered now. ?? She is here with her daughter Ladonna today. ??She states that??she has been battling with dizziness and lightheadedness and falling??which is worsened in the past week.?? She states that she keeps falling and losing her balance, she fell twice this past week where she??is dizzy all the time and her dizziness is triggering??her falling. ??She states that she was walking??up the steps to her house and then just was on the ground. ??She denies syncope and states that she is not losing consciousnessbut is just falling.?? She did have a pain that was in her head and getting many headaches recentlybut has not seen a neurologist for many many years. ?? She states that??once a week she feels her heart skip a beat??and this has occurred??for many years, she states that it used to be even worse than that.?? Her daughter Ladonna states that she also has??palpitations that are treated with metoprolol.?? This is her work??cardiac catheterization she has only had??a single episode??of dull pressure??in the center of her chest that kind of radiated to her jaw??and lasted for about 10 minutes. ??She did end up taking a nitro and it went away. ??She states that she could not catch her breath during this time,??denied diaphoresis and syncope??but??did experience nausea. ??She rated as a 5 out of 10??pain. ?? She states that she is short of breath all of the time. ??This??dyspnea is not??dependent on exertion??it is even present with sitting in her chair.?? This started about a year ago and is not different or changed since her cardiac catheterization.?? She also reports??at least a 3 pound??weight gainin the past week with significant bilateral lower extremity edema. ??She states that??this week shecould not put on her shoes??due to swelling. ??She is wearing??compression stockings today. ?? She has been walking daily for about 30 minutes at a time consistently, but her walks are??at leastfor 2 hours??but is stopping every 30 minutes.?? She denies chest pain during this activity but??isshort of breath. ??She chose not to follow through with cardiac rehab when it was set up for her here at [facility]??due to her balance??challenges??lately. ??They are calling her again at the [facility] this month to determine??when to get her in. ?? She went out and bought a wrist blood pressure cuff??and has been taking her blood pressure??sporadically at home and averaging in the 130s??she believes, but she was unsure of what her average was. Review of Systems A complete review of systems is negative other than as noted in the history of present illness. Physical Exam Vitals & Measurements HR:??83??(Peripheral)?? BP:??150/73?? SpO2:??98%?? HT:??154.94??cm?? WT:??64.86??kg?? BMI:??27.02?? BSA:??1.67?? HEENT: Normocephalic, atraumatic Respirations: Clear to auscultation bilaterally with no wheezes rubs or rhonchi Cardiac: Regular rate and rhythm, normal S1, S2, no murmurs gallops or rubs Abdomen: Nontender nondistended normal active bowel sounds Extremities: 2+ dorsalis pedis pulses bilaterally with no significant edema Medical Decision Making Data Review: 06/20/2022:??Holter monitor, 24 hours, read by Dr. Ling:??Sinus rhythm,??with average heart rateof 58 bpm. ??There were rare PACs and no PVCs.?? Reassuring monitor.?? Mild sinus bradycardia (heart rates down to 45) were noted. 10/22/2022:??Emergency department evaluation for chest pain: Work-up completely normal, suspect costochondritis. 11/13/2022: EKG:??Sinus rhythm at 69 bpm. ??Axes intervals within normal limits. ??There are Q wavesin the inferior leads??but no evidence of active ischemia. 04/28/2023:EKG: SR at 84 bpm, no ND segment depressions, no new ST segment changes, new LBBB, or T-wave changes that would suggest acute ischemia. 04/28/2023:??CTA??of the chest. ??No evidence of pulmonary embolus to the segmental level no aneurysms of the aorta, no dissection of the aorta. 04/28/2023. ??ER:??Left-sided chest pain going on for 2 days.?? Constant, with nausea??and some shortness of breath.?? EKG was negative for any acute changes, troponin have been negative.?? Patient positive with a D-dimer of 2.41??but CT of the chest was negative for any acute process or pulmonary emboli.?? Echo and stress test were ordered.?? Labs. ??BUN 15, creatinine 1.08,??sodium 135, potassium 4.0.?? Troponin??5.7,??less than 5,??less than 5.?? Started on aspirin 81 mg, continue Plavix. Stress echocardiogram 04/29/2023.?? EF 65% with normal wall motion.?? No AAS.?? Mild to moderate AI.?? No significant mitral valve disease.?? Pulmonary artery pressures could not be obtained due to inadequate TR jet ambulated 4 minutes, 80% of MPHR achieved.?? Nondiagnostic ETT due to inability to achieve 85% MPHR.?? No evidence of ischemia at submaximal heart rate recommend Lexiscan nuclear stress test.?? Associated echo images were reassuring. 04/30/2023. ??Discharge.?? Diagnosed as chest pain in the setting of known coronary artery disease.?? A stress echocardiogram was unsuccessful due to patient's inability to walk on treadmill on 04/29/2023.?? She was unable to reach the 85% of her estimated heart rate target.?? There were no EKG changes or echocardiographic changes to suggest ischemia at the suboptimal heart rate??that she did achieve. ??She is scheduled for a Lexiscan. ??She still has normal troponin??levels 05/04/2023: EKG: Sinus rhythm at 82bpm. 05/14/2023:??Lexiscan stress test:??Normal myocardial perfusion with no evidence of ischemia or prior??infarct.??Normal LV function with normal wall motion and ejection fraction??greater than 60%. 08/05/2023: EKG:Sinus rhythm at 88 bpm, borderline left axis deviation. 12/17/23:EKG:Sinus rhythm at 75 bpm, first-degree AV block with ND interval of 205 ms, borderline left axis deviation. ?? 77-year-old female with CAD and chest pain ?? Coronary artery disease:??She is on a cardioprotective medication regimen at this time for her coronary artery disease and just recently went through??a left heart catheterization and stent placementto her LAD.?? Her Lexiscan and??echocardiogram??from 2022??were both reassuring.?? I encouraged herto be seen in the emergency room for any chest pain or worsening symptoms moving forward. ??She felt like her chest??discomfort??since??the catheterization is not different or changed??and she did??just have the heart catheterization done??so we will continue to monitor this. ?? Hypertension:??She is quite elevated in the office today??but thinks that her average is in the 130s at home but unsure. ??I encouraged her to??get an arm blood pressure cuff for at home and monitor daily. ??I want to the average of her systolic readings to be below 130, when I see her next time??if she is averaging above 130 then we should step in with something like chlorthalidone to help with her blood pressure. ?? Edema:??I could not appreciate any swelling on her bilateral lower extremities today??however Crystal??was adamant that she has gained weight??and experiencing significant swelling.?? She would like to trial torsemide, we discussed??that it should make her pee within 30 to 45 minutes of ingestion, last 4 to 6 hours, and not cause nocturia. ??I also discussed??monitoring the fluid level to about60 ounces a day, as well as decreasing her sodium intake.?? I further encouraged her to continue wearing compression stockings. ??I ordered a Chem-7 to be done in 10 days to monitor kidney function and electrolyte status. ?? Dyspnea/Dizziness:??We discussed how she just had the gold standard of tests with a heart catheterization??in regards to her dyspnea. ??However with her dizziness??we can now move forward with getting the heart monitor for 14 days to see if there is??an arrhythmia that could be causing the symptoms.?? I will see her again in 2 months to check in on how she is doing and to go over the results of her heart monitor, if she had any questions or concerns in the meantime??she knows to call in.?? It was a pleasure to see Crystal and Ladonna. Clinic Assessment/Plan CAD (coronary artery disease)??I25.10 Actions: COMPLETED - 23897 Office/Outpatient Visit - Established Patient, Level 3 (20-29 min)., 12/17/23 13:41:00 EDT, CAD (coronary artery disease) INPROCESS - CV ECG Clinic, 12/17/23 13:44:00 EDT, Routine, Reason: Other (please specify), Stop date and time 12/17/23 13:44:00 EDT, CAD (coronary artery disease), ORD_SET_REQ_DT_RANGE, Cerner's Internal Person Id ?? Edema??R60.9 Actions: ORDERED - torsemide, 40 mg = 2 tab, Oral, Daily, # 180 tab, 3 Refill(s), Pharmacy: [id number], 154.94, cm, 12/17/23 13:44:00 EDT, Height, 64.86, kg, 12/17/23 13:56:00 EDT, Weight Dosing FUTURE - Basic Metabolic Panel, Blood, Routine, 12/28/23, Once, Lab Collect, Edema, Order for future visit ?? Additional Actions: FUTURE - EVENT MONITORING PHYSICIAN, 12/17/23, Other, Please Specify, 14 days, Order for future visit, Dizziness FUTURE - Follow-Up Appointment Request N[facility], *Est. 02/16/24 +/- 14 days, Future Order, In Approximately, [facility] Problem List/Past Medical History Ongoing CAD (coronary artery disease) Chest pain, rule out acute myocardial infarction Historical No qualifying data Medications What How Much When Why Instructions New torsemide (torsemide 20 mg oral tablet) 2 tab Oral (given by mouth) Every day Edema Refills: 3 Pickup at [id number] Unchanged albuterol (ProAir HFA 90 mcg/ inh inhalation aerosol) 2 Puffs Inhale (breathe in) Every 4 hours as needed for as needed for wheezing Unchanged aspirin 81 Milligrams Every day Unchanged clopidogrel (Plavix 75 mg oral tablet) 1 tab Oral (given by mouth) Every day CAD (coronary artery disease) Unchanged colchicine (colchicine 0.6 mg oral tablet) 2 tab Oral (given by mouth) Once at first sign of gout flare followed by 1 tablet in 1 hour ?? Unchanged FLUoxetine (FLUoxetine 20 mg oral capsule) 1 Capsules Oral (given by mouth) Every day Unchanged insulin glargine (Toujeo Max SoloStar 300 units/ mL subcutaneous solution) 45 Units Subcutaneous (under the skin) Every day Unchanged insulin lispro (HumaLOG Cartridge 100 units/ mL injectable solution) 10 Units Subcutaneous (under the skin) 3 times a day before meals if eating more increase by 2 units if eating less decrease by 2 units ?? Unchanged loratadine (Claritin Reditab 5 mg oral tablet, disintegrating) 1 tab Oral (given by mouth) Every day as needed for as needed for allergy symptoms Unchanged metoprolol (metoprolol succinate 50 mg oral capsule, extended release) 1 Capsules Oral (given by mouth) Every day Unchanged omeprazole (omeprazole 20 mg oral delayed release capsule) 1 Capsules Oral (given by mouth) Every day as needed for heartburn Unchanged pyridoxine (pyridoxine 50 mg oral tablet) 1 tab Oral (given by mouth) Every day as needed for headache Unchanged rosuvastatin (rosuvastatin 40 mg oral tablet) 1 tab Oral (given by mouth) Every day Pharmacy Information [id number]: [address] [place] [address] [phone] Allergies linagliptin??(Head pain) metFORMIN??(Diarrhoea) BEE VENOM PROTEIN (HONEY BEE) ibuprofen??(Urticaria) Social History Alcohol Never Electronic Cigarette/Vaping Electronic Cigarette Use: Never. Substance Use Never Tobacco Never tobacco user Tobacco Use:. Immunizations Vaccine Date Status influenza virus vaccine, inactivated 05/05/2011 Recorded influenza virus vaccine, inactivated 05/28/2010 Recorded Electronically Signed on 12/17/23 02:44 PM Faustina Andrews NP Patient Care team information Care Team Personnel Name: Tang Weiss MD Position: No Access Member Role: Primary Care Physician Address: Address: [address] [address]- Care Team Related Persons Name: LADONNA FRAGA Address: Home
--- OUTSIDE RECORDS SUMMARY | 2024-05-02 14:21 | XMS_ITS | Continuity of Care Document ---
Author Organization [facility] Address [address] [place] [address] Care Team Providers Care Holiday Detector Operator Name Role Phone [facility]uradha [facility] Primary Care Physician Encounter [facility] Date(s): 11/27/22 - 11/27/22 [facility] [address] [place] [address] Discharge Disposition: Home or Self Care Attending Physician: Davie Petersen MD Admitting Physician: Davie Petersen MD Referring Physician: Davie Petersen MD Allergies, Adverse Reactions, Alerts Substance Reaction Severity Status BEE VENOM PROTEIN (HONEY BEE) Unknown Active ibuprofen Urticaria Unknown Active metFORMIN Diarrhoea Moderate Active linagliptin Head pain Moderate Active Assessment and Plan Future Appointments Future Scheduled Tests Radiology* NM Myocardial SPECT Drug Stress Multi 11/13/22 Immunizations Given and Recorded Vaccine Date Status Refusal Reason influenza virus vaccine, inactivated 05/05/11 Tim rded influenza virus vaccine, inactivated 05/28/10 Tim rded Medications aspirin 81 mg =, Daily, 0 Refill(s) Start Date: 02/15/22 Status: Ordered metoprolol succinate 25 mg =, Daily, 0 Refill(s) Start Date: 02/15/22 Status: Ordered Plavix 75 mg oral tablet 75 mg = 1 tab, Oral, Daily, # 30 tab, 12 Refill(s), Pharmacy: [id number], 160, cm, 10/22/22 15:28:00 EDT, Height/Length Dosing, 63.05, kg, 10/22/22 15:28:00 EDT, Weight Dosing Start Date: 11/13/22 Status: Ordered sertraline 0 Refill(s) Start Date: 02/15/22 Status: Ordered Social History Social History Type Response Tobacco Never tobacco user T obacco Use:. Sex Female Patient Care team information Care Team Personnel Name: Tang Feliciano MD Position: Physician Member Role: Primary Care Physician Address: Address: [address] [place] [id number] [place] Care Team Related Persons Name: DENNIS FRAGA Address: Home
--- OUTSIDE RECORDS SUMMARY | 2024-05-02 14:21 | XMS_ITS | Continuity of Care Document ---
Author Organization [facility] Address [address] [place] [address] Care Team Providers Care Med Asst Name Role Phone Primeau IPHC, Tang Alves Primary Care Physician Encounter [facility] [id number] Date(s): 05/14/23 - 05/14/[address] [address] Encounter Diagnosis Chest pain(Discharge Diagnosis) - 05/14/23 Dyspnea(Discharge Diagnosis) - 05/14/23 Discharge Disposition: Home or Self Care Attending Physician: Faustina Andrews NP Admitting Physician: Faustina Andrews NP Referring Physician: Faustina Andrews JUNIOR MECHANICAL ENGINEER Allergies, Adverse Reactions, Alerts Substance Reaction Severity [...] Daily, # 30 tab, 12 Refill(s), Pharmacy: [id number], 157, cm, 04/28/23 13:43:00 EDT, [...] 0 Refill(s) Start Date: 04/30/23 Status: Ordered Toujeo Max SoloStar 300 units/mL subcutaneous solution 45 units =, Subcutaneous, Daily, 0 Refill(s) Start Date: 04/30/23 Status: Ordered Problem List Condition Confirmation Course Effective Dates Status Health St atus Informant Chest pain, rule out acute myocardial infarction Confirmed Active CAD (coronary artery disease) Confirmed Active Social History Social History Type Response Tobacco Never tobacco user T obacco Use:. Sex Female Patient Care team information Care Team Personnel Name: Anuradha [facility] Position: No Access Member Role: Primary Care Physician Address: Address: [address] [address]- Care Team Related Persons Name: DENNIS FRAGA
--- OUTSIDE RECORDS SUMMARY | 2024-05-02 14:21 | XMS_ITS | Continuity of Care Document ---
Author Organization [place] [facility] Address [address] [place] [address] Care Team Providers Care Commercial Green Building Architect Name Role Phone JENNIFER SOSA Primary Care Provider [phone] MIS MA Joinery Factory Worker/Medical Assistant Supervisor BLACKBURN KATHLEEN Learning Disabilities Teacher [phone] FINN [facility] TURNTABLE ENGINEER Community Health Worker STEW JIMENEZ Behavioral Health [facility] [place] ON AGING OTHER DRE DEMARCO OTHER [facility] CARDIOLOGY OTHER Assessment No assessment recorded. Plan of Treatment Reminders Order Date Submit Date Provider Last Modified By Organization Details Last Modified Time Details Appointments Follow Up 30 2023 10:00A M Not available Not available Not available Follow Up 2023 01:30P M Not available Not available Not available Lab None recorded. Referral diabetic nutrition education referral - Long saga as you know. Unfortuna tely the family never called the suppliers last year after [facility] had done all the footwork - now that approval is lapsed. Pt is functiona lly and emotional ly much improved this year and I think she will make more reliable use of the CGM. Doses in EHR are correct for both humalog and toujeo. 20[address], [address], [place], [address], 03/28/2024 12:04:42 Procedures None recorded. Surgeries None recorded. Imaging None recorded. Medication Orders None recorded. Patient TargetsNo targets recorded. Patient InstructionsNo instructions recorded. Reason for Referral Cardiac Rehabilitation Provi chris Referral for Angina pectoris Cannot start until end of November. SP PTCA x 2 in Jul - will send cardio note. Best contact to coordinate with her transportation is daughter Ladonna Rodriguez [phone] Referring Physician: Jennifer Sosa, Internal Medicine, Encounter Date: 11/02/2023 Store Grocery Merchandiser Referral for At ypical chest pain This is a 78-year-old diabetic woman with longstanding coronary disease, status post revascularization at [facility] in August of this year. Unfortunately our local supervisor air conditioning installer has left and Lou continues to have 2 significant issues:1. Recent Zio patch showed three 5 to 6 seconds episodes of SVT, for which the patient did hit her trigger. I would not be concerned except that the rate is pretty rapid, 1 60-1 80. It is notable that the patient had at least 15 additional triggers in which she was in normal sinus rhythm. For now I have increased her metoprolol from 50 to 75 mg, but she is already complaining of some lightheadedness. It is unclear to me whether she deserves EP study. I am reluctant to add diltiazem because of polypharmacy and frequent complaints of lightheadedness, as well as his significant chronic pedal edema. Her pedal edema is likely due primarily to venous insufficiency. She had specifically asked the supervisor air conditioning installer for a loop diuretic to control that, but then became so lightheaded that she passed out 1 day. I have backed her off from the diuretic doses. Hopefully I have convinced her to use support hose.2. She complains of ongoing episodes of chest pain and dyspnea on exertion. This is a tough patient who has renal disease but who also has symptoms that have not gone away in many years. It is notable that she had negative stress echo and negative MPI in the 4 months leading up to her revascularization in August. On the good side, she has finally gotten engaged with cardiac rehab which may help. I am skeptical that we will arrive at a medicine cocktail that takes her symptoms away, and of course the difficulty is knowing when to pull the trigger with her. As noted above, her SVT does account for some of her symptoms but not all. I have treated her for anxiety and depression many times over the past decade and that has never made much difference with her chest symptoms. The symptoms do increase when she has particularly high levels of stress.Her discharge summary had asked us to follow-up on the usual risk factor modification. I will attach her prior cholesterol level. She is on maximal dose Crestor. I am also attaching the ZIO strips, and her last local cardiology note. Referring Physician: Jennifer Sosa, Internal Medicine, Encounter Date: 01/13/2024 Diabetic Nutrition Education Referral for Type 2 diabetes mellitus without complication Long saga as you know. Unfortunately the family never called the suppliers last year after [facility] had done all the footwork - now that approval is lapsed. Pt is functionally and emotionally much improved this year and I think she will make more reliable use of the CGM. Doses in EHR are correct for both humalog and toujeo. Referring Physician: Jennifer Sosa, Internal Medicine, Encounter Date: 02/01/2024 Health Educator Referral for Diabetes mellitus Diabetes Self-Management Program Referring Physician: Mis Ma, Registered Dietitian Medical Assistant Supervisor, Encounter Date: 03/28/2024 Results Created Date Observation Date Name Description Value Unit Range Abnormal Flag Note LastModifiedBy Organization Detail LastModifiedTime 01/08/20 24 12/21/2023 cardi ac monit or No observ ation record ed. [email or web address] [place] [facility] [address], [place], [address], 01/13/2024 11:10:11 04/17/20 24 06/12/2020 imagi ng/di agnos tic resul t No observ ation record ed. [email or web address] Not Available 04/17 22:42:38 04/17/20 24 01/13/2019 imagi ng/di agnos tic resul t No observ ation record ed. [email or web address] Not Available 04/17 22:42:43 09/15/10/19/2018 imagi ng/di agnos tic resul t No observ ation record ed. [email or web address] Not Available 04/17 22:42:55 04/17/2008/13/2018 imagi ng/di agnos tic resul t No observ ation record ed. [email or web address] Not Available 04/17 22:42:59 04/17/2008/08/2021 imagi ng/di agnos tic resul t No observ ation record ed. [email or web address] Not Available 04/17 22:43:03 04/17/20 24 03/27/2021 imagi ng/di agnos tic resul t No observ ation record ed. [email or web address] Not Available 04/17 22:43:06 04/17/20 24 03/27/2021 imagi ng/di agnos tic resul t No observ ation record ed. [email or web address] Not Available 04/17 22:43:09 04/17/20 24 06/11/2022 imagi ng/di agnos tic resul t No observ ation record ed. [email or web address] Not Available 04/17 22:43:11 04/17/20 24 06/11/2022 imagi ng/di agnos tic resul t No observ ation record ed. [email or web address] Not Available 04/17 22:43:12 04/17/20 24 04/11/2022 imagi ng/di agnos tic resul t No observ ation record ed. [email or web address] Not Available 04/17 22:43:17 04/17/20 24 04/11/2022 imagi ng/di agnos tic resul t No observ ation record ed. [email or web address] Not Available 04/17 22:43:18 04/17/20 24 12/04/2022 imagi ng/di agnos tic resul t No observ ation record ed. [email or web address] Not Available 04/17 22:43:19 04/17/20 24 06/16/2022 imagi ng/di agnos tic resul t No observ ation record ed. [email or web address] Not Available 04/17 22:43:52 04/17/20 24 01/15/2021 US, breas t, limit ed No observ ation record ed. [email or web address] Not Available 04/17 22:45:16 04/17/20 24 04/28/2023 CT, angio gram, chest No observ ation record ed. [email or web address] Not Available 04/17 22:45:17 04/17/20 24 12/20/2020 CT, angio gram, chest , w/wo contr ast No observ ation record ed. [email or web address] Not Available 04/17 22:45:19 04/17/20 24 08/06/2021 CT, angio gram, chest , w/wo contr ast No observ ation record ed. [email or web address] Not Available 04/17 22:45:20 04/17/20 24 07/18/2022 US, duple x, venou s, lower extre mity No observ ation record ed. [email or web address] Not Available 04/17 22:45:24 04/17/20 24 12/06/2019 MRI, shoul chris, w/o contr ast No observ ation record ed. [email or web address] Not Available 04/17 22:45:25 04/17/20 24 07/20/2020 MRI, shoul chris, w/o contr ast No observ ation record ed. [email or web address] Not Available 04/17 22:45:26 04/17/20 24 05/14/2023 imagi ng/di agnos tic resul t No observ ation record ed. [email or web address] Not Available 04/17 22:45:27 04/17/20 24 01/15/2019 imagi ng/di agnos tic resul t No observ ation record ed. [email or web address] Not Available 04/17 22:45:28 04/17/20 24 01/15/2021 MAMMO , diagn ostic , tomos ynthe sis, bilat eral No observ ation record ed. [email or web address] Not Available 04/17 22:45:29 04/17/20 24 05/13/2019 imagi ng/di agnos tic resul t No observ ation record ed. [email or web address] Not Available 04/17 22:45:30 04/17/20 24 01/18/2021 US, echoc ardio gram No observ ation record ed. [email or web address] Not Available 04/17 22:45:33 04/17/20 24 08/07/2021 US, echoc ardio gram No observ ation record ed. [email or web address] Not Available 04/17 22:45:34 04/17/20 24 10/19/2021 XR, wrist , 3 or more view No observ ation record ed. [email or web address] Not Available 04/17 22:45:35 04/17/20 24 01/10/2020 CT, chest , w/ contr ast No observ ation record ed. [email or web address] Not Available 04/17 22:45:36 04/17/20 24 10/18/2019 XR, shoul chris, 2 or more view No observ ation record ed. [email or web address] Not Available 04/17 22:45:37 04/17/20 24 04/17/2022 US, head + neck, soft tissu e No observ ation record ed. [email or web address] Not Available 04/17 22:45:44 04/17/20 24 01/08/2021 CT, abdom en, w/ contr ast No observ ation record ed. [email or web address] Not Available 04/17 22:45:44 04/17/20 24 04/12/2019 imagi ng/di agnos tic resul t No observ ation record ed. [email or web address] Not Available 04/17 22:45:45 04/17/20 24 04/12/2019 US, abdom en, limit ed No observ ation record ed. [email or web address] Not Available 04/17 22:45:51 04/17/20 24 04/28/2023 XR, chest , 1 view No observ ation record ed. [email or web address] Not Available 04/17 22:45:52 04/17/20 24 12/25/2021 MRI, head No observ ation record ed. [email or web address] Not Available 04/17 22:46:03 04/17/20 24 04/12/2021 XR, chest No observ ation record ed. [email or web address] Not Available 04/17 22:46:06 04/17/20 24 08/23/2018 XR, chest No observ ation record ed. [email or web address] Not Available 04/17 22:46:07 04/17/20 24 12/18/2018 XR, chest No observ ation record ed. [email or web address] Not Available 04/17 22:46:15 04/17/20 24 09/09/2019 XR, chest No observ ation record ed. [email or web address] Not Available 04/17 22:46:16 04/17/20 24 06/13/2020 XR, chest No observ ation record ed. [email or web address] Not Available 04/17 22:46:17 04/17/20 24 12/20/2020 XR, chest No observ ation record ed. [email or web address] Not Available 04/17 22:46:18 04/17/20 24 01/14/2021 MAMMO , tomos ynthe sis, bilat eral No observ ation record ed. [email or web address] Not Available 04/17 22:46:25 Result Notes None recorded. Problems Name Problem SNOMED Code Status Onset Date Resolution Date Notes Provider Name and Address Organization Details Recorded Time Type 2 diabetes mellitus without complica tion 167476871 Active 201512/04/19 23 - Comments only - Jennifer Sosa MD - Control remains terrible with A1c over 10. She always does her long-act ing insulin, it knowledg es that she is not perfectl y complian t with the sliding scale short acting insulin. She has not had hypoglyc emia. She has been intolera nt of numerous agents and is prone to diarrhea . I still think we are better off with one of the newer classes that would help her to control weight. We will try Rybelsus 3 mg daily, warned her that she could have a recurren ce of nausea, bloating etc. Problem Code: E11.9; Problem Code Type: ICD-10; Not Available [facility] 3 04:37:31 Essentia l hyperten saundra 33492894 Active 201510/25/19 21 - Comments only - Jennifer Sosa MD - BP control is good Problem Code: I10; Problem Code Type: ICD-10; Not Available [facility] 3 04:37:31 Neuropat hy due to type 2 diabetes mellitus 49835886964 9106 Active 201510/15/19 19 - Comments only - Jennifer Sosa MD - Stable and minimal Problem Code: E11.40; Problem Code Type: ICD-10; Not Available [facility] 3 04:37:31 Arthralg ia of the ankle and/or foot 734296091 Active 2015 Problem Code: M25.571; Problem Code Type: ICD-10; Not Available [facility] 3 04:37:32 Bone cyst 416546396 Completed 201504/29/2023 Problem Code: M85.60; Problem Code Type: ICD-10; Not Available [facility] 3 04:37:32 Migraine 36787752 Active 201507/14/20 18 - Comments only - Jennifer Sosa MD - Also improved Problem Code: G43.909; Problem Code Type: ICD-10; Not Available [facility] 3 04:37:32 Vitamin B deficien cy 69844885 Active 2015 Problem Code: E53.8; Problem Code Type: ICD-10; Not Available [facility] 3 04:37:32 Postproc edural state finding 912079646 Active 2015 Problem Code: Z98.89; Problem Code Type: ICD-10; Not Available [facility] 3 04:37:32 Non-toxi c uninodul ar goiter 037426704 Active 201504/11/20 22 - Comments only - Jennifer Sosa MD - She is due to have a recheck of the thyroid using ultrasou nd. I believe she has had a left-thai ed partial thyroide ctomy. Problem Code: E04.1; Problem Code Type: ICD-10; Not Available [facility] 3 04:37:32 Acute non-infe ctive otitis externa 707497138 Completed 201504/05/2016 Problem Code: H60.509; Problem Code Type: ICD-10; Not Available [facility] 3 04:37:32 Atherosc lerosis of coronary artery without angina pectoris 28546438350 4103 Active 201512/24/19 22 - Comments only - Jennifer Sosa MD - Patient has not had active coronary disease in at least 4 years. Since then she has had multiple bouts of atypical chest pain and several negative MPI's. Family stress is the most persiste nt cause of her chest pain. Problem Code: I25.10; Problem Code Type: ICD-10; Not Available [facility] 3 04:37:32 Chronic ethmoida l sinusiti s 38828975 Completed 201610/08/2016 Problem Code: J32.2; Problem Code Type: ICD-10; Not Available [facility] 3 04:37:33 Counseli ng Active 2016 Problem Code: Z71.89; Problem Code Type: ICD-10; Not Available [facility] 3 04:37:33 Orthopne a 26253495 Active 2016 Problem Code: R06.01; Problem Code Type: ICD-10; Not Available [facility] 3 04:37:33 Acquired absence of organ 291922785 Active 2017 Problem Code: Z90.89; Problem Code Type: ICD-10; Not Available [facility] 3 04:37:33 Headache 48354884 Completed 201711/02/2023 12/04/19 23 - Comments only - Jennifer Sosa MD - Currentl y more right parietal than frontal. Chronic daily headache pattern, not migraine . Previous ly been on be suppleme ntation I am going to restart pyridoxi ne now. Neurolog ic exam normal. Problem Code: R51; Problem Code Type: ICD-10; JENNIFER SOSA MD [address], [place], [address] , [facility]. 4 16:39:59 Dysphoni a 01650014 Active 201704/09/20 18 - Comments only - Jennifer Sosa MD - since left thyroid lobectom y in August. Concerni ng for recurren t laryngea l nerve injury. Should have laryngos copy by ENT and I will refer her to change on spray for that. Hopefull y will respond to INSURANCE ACCOUNT MANAGER. I do not think this is due to a nodule. Problem Code: R49.0; Problem Code Type: ICD-10; Not Available [facility] 3 04:37:33 Muscle weakness 23227928 Active 201707/14/20 18 - Comments only - Jennifer Sosa MD - No objectiv e findings but I am going to have her see Dr. Meek and get EMGs again. She had normal thyroid levels within the past year but her sugar control has slipped a bit; however this does not seem to be a primary sensory polyneur opathy. Problem Code: M62.81; Problem Code Type: ICD-10; Not Available [facility] 3 04:37:34 Adult health examinat ion Active 201805/09/20 21 - Comments only - Jennifer Sosa MD - Needs a flu shot Problem Code: Z00.00; Problem Code Type: ICD-10; Not Available [facility] 3 04:37:34 Gastroin testinal tract excision Active 2018 Problem Code: Z90.49; Problem Code Type: ICD-10; Not Available [facility] 3 04:37:34 Acute laryngit is 4870216 Completed 201808/04/2019 07/21/20 19 - Comments only - Jennifer Sosa MD - Reassura nce, humidifi er, analgesi cs and fluids. Problem Code: J04.0; Problem Code Type: ICD-10; Not Available [facility] 3 04:37:34 Rupture of rotator cuff of right shoulder 77842918204 189056 Active 201910/19/19 20 - Comments only - Jennifer Sosa MD - Seeing Ortho Problem Code: M75.101; Problem Code Type: ICD-10; Not Available [facility] 3 04:37:34 Obstruct santiago sleep apnea syndrome 94634048 Active 201906/21/20 20 - Improved - Jennifer Sosa MD - Recently complete d her study and is on CPAP appropri ately. Problem Code: G47.33; Problem Code Type: ICD-10; Not Available [facility] 3 04:37:34 Pulmonar y embolism 13053907 Completed 202011/02/2023 08/22/19 22 - Comments only - Jennifer Sosa MD - This was postoper ative and she does not have other ongoing risks. We will disconti marga Pricenoahantonella now. Problem Code: I26.99; Problem Code Type: ICD-10; JENNIFER SOSA MD [address], [place], [address] , [facility] 4 16:40:19 Full thicknes s rotator cuff tear 911976711 Active 2020 Problem Code: M75.121; Problem Code Type: ICD-10; Not Available [facility] 3 04:37:35 Essentia l tremor 011841808 Active 202007/16/20 22 - Comments only - Jennifer Sosa MD - No new signs of Parkinso n's disease. She was wide based and cautious with ambulati on but had no other gait abnormal ities. Problem Code: G25.0; Problem Code Type: ICD-10; Not Available [facility] 3 04:37:35 Anxiety 05235062 Active 202005/09/20 21 - Comments only - Jennifer Sosa MD - She is not severe but it is not surprisi ng that her citalopr am is lost some effectiv eness. We will try switchin g her to fluoxeti ne which is little more activati ng. Problem Code: F41.8; Problem Code Type: ICD-10; Not Available [facility] 3 04:37:35 Ataxia 38726459 Active 202101/11/20 22 - Comments only - Jennifer Sosa MD - She is so unsteady she cannot really walk would benefit from using a walker. However her right wrist has been too sore for her to use the walker, and PT reported that they could not help fit people for a walker . The wrist is somewhat improved I am hopeful within another month she can start using the walker effectiv romana and get around more. Her MRI was negative , there is no evidence of cerebell ar stroke. She has known fairly mild peripher al neuropat hy. She is not orthosta tic and not having active vertigo. Problem Code: R27.0; Problem Code Type: ICD-10; Not Available [facility] 3 04:37:35 Cataract 773478402 Active 202112/24/19 22 - Comments only - Jennifer Sosa MD - Patient has no contrain dication to cataract surgery. She does not need to interrup t her meds, but presumin g she will be n.p.o. in the morning, I am reducing her long-act ing insulin to two thirds normal, the night before. Also she should not take long-act ing insulin on that date. Problem Code: H26.9; Problem Code Type: ICD-10; Not Available [facility] 3 04:37:36 Allergic rhinitis 53250563 Active 202101/11/20 22 - Comments only - Jennifer Sosa MD - Has not had any progress ion towards a cold. Can use nasal fluticas one. Problem Code: J30.9; Problem Code Type: ICD-10; JENNIFER SOSA MD [address], [place], [address] , [facility] 4 17:30:41 Enthesop athy 02959104 Active 202101/11/20 22 - Comments only - Jennifer Sosa MD - Her pain radiates up and down the forearm a fair amount and I think she may have as much soft tissue irritati on as joint disease. I recommen d that she use a wrist splint for 4 to 6 weeks to try to help this heal. Problem Code: M77.9; Problem Code Type: ICD-10; Not Available [facility] 3 04:37:36 Pneumoni a 183909376 Completed 202102/22/2022 02/22/20 22 - Comments only - Ella BRIONES - there has been increase d resistan ce to z-paks with atypical pneumoni as. rx for doxy 100mg BID for 10 days. rx for tessalon perles 100mg TID prn cough. plenty of rest and fluids. Return to clinic if not improvin g or worsenin g symptoms Problem Code: J18.9; Problem Code Type: ICD-10; Not Available [facility] 3 04:37:36 Stress 89865820 Active 202106/05/20 22 - Comments only - Taliisabel Sofia ASSISTANT ADMINISTRATOR - Related to son continue s. They have moved out but are still moving there stuff out. 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 She is not on a diuretic per se but is on Jardianc e which I am disconti nuing since it may exacerba te this. With her history of coronary disease I am reluctan t to consider midodrin e or fludroco rtisone. She needs to push fluids and can liberali ze her salt intake. Should also wear support hose. I doubt PE, she has no dyspnea, no new risk factors, no chest pain or dyspnea. Last echo showed intact EF. A recent Holter showed sinus bradycar emily but only into the high 40s and 50s. There were no signific ant pauses. She had stress testing earlier this year that was negative . Problem Code: I95.1; Problem Code Type: ICD-10; JENNIFER SOSA MD [address], [place], [address] , [facility]. 4 15:10:12 Muscle pain 99935906 Completed 202105/04/2023 Problem Code: M79.10; Problem Code Type: ICD-10; Not Available [facility] 4 05:34:23 Deep venous thrombos is 602855130 Active 2021 Not Available [facility] 3 04:37:37 Gout 35084884 Active 202212/04/19 23 - Comments only - Jennifer Sosa MD - Gout is a little surprisi ng with her uric acid less than 2, but she has a very typical history and response . I do not recommen d any maintena nce therapy other than taking a little more care with diet. Should restrict carbs, just avoid excesses of certain proteins . She does not use alcohol anyhow. Good have her keep a supply of colchici ne at home, see instruct ions. She is not on thiazide s. Problem Code: M10.9; Problem Code Type: ICD-10; Not Available [facility] 3 04:37:37 Abdomina l pain 66137611 Completed 202205/04/2023 Problem Code: R10.9; Problem Code Type: ICD-10; Not Available [facility] 4 05:34:26 Neuralgi a 24892938 Completed 201503/05/2016 Not Available [facility] 3 04:37:38 Atypical facial pain 51884759 Completed 202112/03/2022 Problem Code: G50.1; Problem Code Type: ICD-10; Not Available [facility] 3 04:37:38 Chest pain 30477618 Completed 201505/09/2021 Problem Code: R07.9; Problem Code Type: ICD-10; JENNIFER SOSA MD [address], [place], [address] , [facility] 4 10:27:25 Pain in right foot 30476176032 9107 Completed 201503/05/2016 Problem Code: M79.671; Problem Code Type: ICD-10; Not Available [facility] 3 04:37:38 Dyspnea 438679979 Completed 201605/09/2021 Problem Code: R06.02; Problem Code Type: ICD-10; Not Available [facility] 3 04:37:38 Rheumato id arthriti s 62267501 Completed 202101/10/2022 Problem Code: M06.9; Problem Code Type: ICD-10; Not Available [facility] 3 04:37:39 Heart failure 22883926 Completed 201901/02/2020 Problem Code: I50.9; Problem Code Type: ICD-10; Not Available [facility] 3 04:37:39 Anxiety disorder 084388853 Completed 201505/09/2021 Problem Code: F41.9; Problem Code Type: ICD-10; Not Available [facility] 3 04:37:39 Right upper quadrant pain 234801384 Completed 201804/29/2023 Problem Code: R10.11; Problem Code Type: ICD-10; Not Available [facility] 3 04:37:39 Dizzines s and giddines s 236177724 Active 2021 Problem Code: R42; Problem Code Type: ICD-10; Not Available [facility] 4 05:34:18 Preinfar ction syndrome 7760021 Completed 202108/22/2021 Problem Code: I20.0; Problem Code Type: ICD-10; Not Available [facility] 3 04:37:40 Bleeding 293063436 Completed 202005/09/2021 Problem Code: R58; Problem Code Type: ICD-10; Not Available [facility] 3 04:37:40 Dyspnea 142654771 Completed 201905/09/2021 Problem Code: R06.00; Problem Code Type: ICD-10; Not Available [facility] 3 04:37:40 Acute upper respirat ory infectio n 05611307 Completed 201610/19/2019 Problem Code: J06.9; Problem Code Type: ICD-10; Not Available [facility] 3 04:37:40 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 Because of her diabetes I am not going to start steroids empirica lly. We will get inflamma tory markers and hemogram now. I will arrange for her to see her eye doctor IRAIS and also arrange temporal artery biopsy IRAIS. Dependin g on the timing of that we may have to start steroids empirica lly ahead of time. Problem Code: M31.6; Problem Code Type: ICD-10; Not Available [facility] 3 04:37:41 Cholelit hiasis without obstruct ion [id number] Completed 201804/29/2023 07/21/20 19 - Comments only - Jennifer Sosa MD - This very difficul t to determin e this as multiple imaging studies were negative , but ultimate ly her gallblad chris EF was down, and she has felt markedly improved since cholecys tectomy. 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 She is not on a diuretic per se but is on Jardianc e which I am disconti nuing since it may exacerba te this. With her history of coronary disease I am reluctan t to consider midodrin e or fludroco rtisone. She needs to push fluids and can liberali ze her salt intake. Should also wear support hose. I doubt PE, she has no dyspnea, no new risk factors, no chest pain or dyspnea. Last echo showed intact EF. A recent Holter showed sinus bradycar emily but only into the high 40s and 50s. There were no signific ant pauses. She had stress testing earlier this year that was negative . Problem Code: I95.1; Problem Code Type: ICD-10; MD [address], [place], [address] , [facility] 4 15:10:12 Supraven tricular tachycar emily 9420165 Active [address], [facility] [address] , [facility] 4 18:47:38 Atypical chest pain 439256179 Active [address], [facility] [address] , [facility] 4 10:30:06 Fatigue 79138172 Active [address], [place], [address] , [facility] 4 11:02:02 Notes:*Problem Name: Aneurys mal bone cyst, right ankle and foot *Problem Status: active *Comments: 04/09/2018 - Comments only - Jennifer Sosa MD - This is not actually aneurysmal, that is the only choice popped up by dysfunctional ICD 10 coding system. There is a painful small nodule in the dorsum of the right foot, chef's assistant previously told her this was a cyst. This clearly not a synovial cyst but I think it probably is a subchondral cyst. His prominent enough to press on the shoe and give her pain. She is way too active to wear extra depth shoes all the time so I think she may be a candidate for surgery. She is not ready to do this yet. *Problem Code: M85.571 *Problem Code Type: ICD-10 *Note Date: 04/09/2018 Problem Notes None recorded. Medical Equipment None Reported. Allergies Allergen ID Allergen Name Allergen Category Reaction Reaction Severity Criticality Documentation Date Start Date Code Code System Note Provider Name and Address Organization Details Recorded Time 31927 wasp venoms environme nt anaphylax is severe high 06/12/20232015 28128 RxNorm Aller gyNam e: 'BEE STING S'; [facility] 4 13:22:31 70606 pantopraz ole sodium medicatio n other mild Not available 06/12/20232020 28168 1 RxNorm Aller gyRea ction : 'GI upset '; [facility] 4 13:25:07 19004 ibuprofen medicatio n hives moderate Not available 06/12/20232015 5640 RxNorm Hives Not Available [facility] 3 16:29:38 69138 Tradjenta medicatio n rash severe high 09/28/20232017 47540 03 RxNorm React ion: INtol nause a [facility] 4 13:26:01 72840 metformin medicatio n diarrhea rash mild severe high 09/28/20232017 6809 RxNorm [facility] 4 13:24:31 37223 Trulicity medicatio n headache nausea moderate severe high 09/28/20232017 54833 96 RxNorm Sever e nause a & Migra ine Heada ches [facility] 4 13:27:03 Medications Name Sig Start Date Stop Date Status Note LastModified by Organization Details LastModified Time Prescript ion - Renewal active metoprol ol succinat e 25 mg tablet extended release 24 hr[RxRsp ] Not Available Not Available Not Available celecoxib 200 mg capsule 1 once a day 12/27 completed Not Available Not Available Not Available amoxicill in 500 mg capsule Take 2 cap by mouth two times daily 03/06 completed Not Available Not Available Not Available metformin 500 mg tablet Take 1 tab by mouth daily 2015 active Not Available Not Available Not Avai lable Augmentin 875 mg-125 mg tablet Take 1 tablet by mouth twice a day 04/26 completed Not Available Not Available Not Available prednison e 10 mg tablet 11/01 completed Not Available Not Available Not Available doxycycli ne hyclate 100 mg capsule TAKE 1 CAPSULE BY MOUTH TWICE DAILY FOR 10 DAYS 11/01 completed Not Available Not Available Not Available Plaquenil 200 mg tablet Take 2 tablet by mouth once a day 12/23 completed Not Available Not Available Not Available carvedilo l 12.5 mg tablet Take 0.5 tablets twice a day by oral route. 2023 active Not Available Not Available Not Avai lable torsemide 20 mg tablet active Not Available Not Available Not Available cetirizin e 5 mg tablet Take 1 tablet by mouth once a day 2020 active Not Available Not Available Not Avai lable benzonata te 200 mg capsule TAKE 1 CAPSULE BY MOUTH THREE TIMES DAILY NEEDED 11/01 completed Not Available Not Available Not Available metoprolo l succinate ER 50 mg tablet,ex tended release 24 hr Take 1 tablet by mouth once daily 01/12 completed Not Available Not Available Not Available citalopra m 10 mg tablet Take 1 tab by mouth daily 2015 active Not Available Not Available Not Avai lable hydrocodo ne 5 mg-acetam inophen 325 mg tablet Take 1 tab by mouth every 4-6 hours as needed for pain 03/05 completed Not Available Not Available Not Available glipizide ER 10 mg tablet, extended release 24 hr Take 1 tab by mouth daily 08/27 completed Not Available Not Available Not Available isosorbid e mononitra te ER 30 mg tablet,ex tended release 24 hr Take 1 tab by mouth daily in the morning 08/27 completed Not Available Not Available Not Available prednison e 5 mg tablet Take 2 tablet by mouth once a day Two tabs daily for 2 weeks then 1.5 daily 12/23 completed Not Available Not Available Not Available metronida zole 250 mg tablet Take 1 tab by mouth three times daily for 5 days 04/26 completed Not Available Not Available Not Available glipizide ER 5 mg tablet, extended release 24 hr Take 1 tab by mouth daily 2015 active Not Available Not Available Not Avai lable clopidogr el 75 mg tablet TAKE 1 TABLET BY MOUTH ONCE DAILY active Not Available Not Available No t Available Claritin RediTabs 10 mg disintegr ating tablet Take 1 tablet by mouth once a day as needed 2021 active Not Available Not Available Not Avai lable pantopraz ole 20 mg tablet,de layed release Take 1 tablet by mouth once a day 01/09 completed Not Available Not Available Not Available citalopra m 20 mg tablet Take 1 tablet by mouth once a day 05/09 completed Not Available Not Available Not Available famotidin e 20 mg tablet Take 1 tablet by mouth every night (Stomach protecti on from aspirin) 08/22 completed Not Available Not Available Not Available lorazepam 0.5 mg tablet 1 tablet by mouth once a day as needed 01/09 completed Not Available Not Available Not Available benzonata te 100 mg capsule Take 1 capsule by mouth three times a day as needed for cough 04/11 completed Not Available Not Available Not Available glipizide ER 2.5 mg tablet, extended release 24 hr Take 1 tab by mouth daily 2015 active Not Available Not Available Not Avai lable cephalexi n 500 mg capsule Take 1 capsule by mouth four times a day 12/03 completed per [facility] discharg e summary 11/17/22 Not Available Not Available Not Available metformin 1,000 mg tablet Take 1 tab by mouth twice daily 11/23 completed Not Available Not Available Not Available losartan 25 mg tablet One daily 07/21 completed Not Available Not Available Not Available metoprolo l tartrate 50 mg tablet Take 1 tab by mouth twice daily 07/23 completed Not Available Not Available Not Available nitroglyc yumiko 0.4 mg sublingua l tablet DISSOLVE ONE TABLET (0.4 MG) UNDER THE TONGUE EVERY 5 MINUTES NEEDED FOR CHEST PAIN. DO NOT EXCEED A TOTAL OF 3 DOSES IN 15 MINUTES active Not Available Not Available No t Available pyridoxin e (vitamin B6) 50 mg tablet TAKE 1 TABLET BY MOUTH ONCE DAILY FOR HEADACHE 11/01 completed Not Available Not Available Not Available omeprazol e 20 mg capsule,d elayed release Take 1 capsule by mouth once a day only when needed 2021 active Not Available Not Available Not Avai lable aspirin 81 mg tablet Take 1 tablet by mouth once a day 2015 active Not Available Not Available Not Avai lable diclofena c sodium 50 mg tablet,de layed release HOLD per [facility] Cardiolo gist: One daily 10/14 completed Not Available Not Available Not Available furosemid e 20 mg tablet Take 1 tab by mouth every other day and daily when needed for leg swelling . 07/25 completed Not Available Not Available Not Available metoprolo l succinate ER 25 mg tablet,ex tended release 24 hr TAKE 3 TABLETS BY MOUTH ONCE DAILY 05/02 completed latanya guerrero her to carvedil ol Not Available Not Available Not Available Aspir-81 mg tablet,de layed release Take 1 tab by mouth daily 2015 active Not Available Not Available Not Avai lable colchicin e 0.6 mg tablet TAKE 2 TABLETS BY MOUTH ON DAY 1 AND THEN TAKE 1 TABLET BY MOUTH ONCE A DAY ON DAYS 2 THROUGH DAY 5 FOR GOUT ATTACK active Not Available Not Available No t Available fluoxetin e 20 mg capsule TAKE 1 CAPSULE BY MOUTH ONCE DAILY active Not Available Not Available No t Available dicyclomi ne 10 mg capsule Onoe by mouth twice daily when needed for abdomina l pain 07/21 completed Not Available Not Available Not Available Novolog FlexPen U-100 Insulin aspart 100 unit/mL (3 mL) subcutane ous Use sliding scale as directed . Max daily dose of 36 units 2019 active Not Available Not Available Not Avai lable rosuvasta tin 40 mg tablet TAKE 1 TABLET BY MOUTH ONCE DAILY AT NIGHT active Not Available Not Available No t Available Prilosec OTC 20 mg tablet,de layed release Take 1 tablet by mouth daily 07/[address] [facility] Cardiolo gist Not Available Not Available Not Available carbamaze pine ER 200 mg capsule,e xtended release [id number] r Take 1 cap by mouth twice daily 08/31 completed Not Available Not Available Not Available Plavix 11/01 completed Not Available Not Available Not Available ProAir HFA 90 mcg/actua tion aerosol inhaler Inhale 2 puff as directed every four to six hours as needed 2019 active Not Available Not Available Not Avai lable Januvia 100 mg tablet Take 1 tablet by mouth once a day 06/04 completed Not Available Not Available Not Available Lantus Solostar U-100 Insulin 100 unit/mL (3 mL) subcutane ous pen Give 70 units daily every PM. Titrate up to effectiv e dose as indicate d.(75 u for sick days) 01/26 completed Not Available Not Available Not Available Humalog KwikPen (U-100) Insulin 100 unit/mL subcutane ous INJECT 10 UNITS SUBCUTAN EOUSLY WITH BREAKFAS T, 10 UNITS WITH LUNCH, AND 15 UNITS WITH DINNER. IF EATING MORE INCREASE BY 2 UNITS IF EATING LESS DECREASE BY 2 UNITS active Not Available Not Available No t Available Tradjenta 5 mg tablet Take 1 tab by mouth daily 09/25 completed Not Available Not Available Not Available Xarelto 15 mg tablet Take 1 tablet by mouth twice a day for 21 days (then will increase to Xarelto 20mg daily) 01/14 completed quantity correcti on Not Available Not Available Not Available Xarelto 20 mg tablet Take 1 tablet by mouth once a day (20 mg to be started 01/15/20 21) 02/07 completed Not Available Not Available Not Available OneTouch Verio test strips USE ONE NEW TEST STRIP 3 TIMES DAIY TO TEST BLOOD GLUCOSE 2021 active Not Available Not Available Not Avai lable EpiPen 2-Gwyn 0.3 mg/0.3 mL injection , auto-inje ctor Use as directed 2016 active Not Available Not Available Not Avai lable Victoza 2-Gwyn 0.6 mg/0.1 mL (18 mg/3 mL) subcutane ous pen injector INJECT 0.6MG SUBCUTAN EOUSLY ONCE DAILY 02/02 completed Not Available Not Available Not Available Eliquis 5 mg tablet Take 1 tablet by mouth twice a day 08/22 completed Not Available Not Available Not Available Invokana 300 mg tablet Take 1 tab by mouth daily 07/14 completed Not Available Not Available Not Available Farxiga 10 mg tablet one tablet by mouth daily 08/06 completed ins would not pay for invokana Not Available Not Available Not Available Farxiga 5 mg tablet Take 1 tablet by mouth once a day 05/10 completed Not Available Not Available Not Available Jardiance 10 mg tablet Take 1 tablet by mouth once a day restarte d by Endocrin ology [facility] 07/16 completed Not Available Not Available Not Available Trulicity 0.75 mg/0.5 mL subcutane ous pen injector Inject .75 mg once weekly as directed 04/09 completed Not Available Not Available Not Available Aranza SoloStar U-300 Insulin 300 unit/mL (1.5 mL) subcutane ous pen Inject 60 units every day by subcutan eous route. 2023 active Not Available Not Available Not Avai lable Tresiba FlexTouch U-200 insulin 200 unit/mL (3 mL) subcutane ous pen 80 u sc qd (also needs 12 weeks of microfin e needles appropri ate for this flextouc h pen) 08/08 completed Not Available Not Available Not Available Rybelsus 3 mg tablet 01/31 completed pt reports not taking Not Available Not Available Not Available Vitals Date Recorded Body height Body mass index (BMI) Body weight Oxygen saturation Oxygen saturation in Arterial blood by Pulse oximetry Heart rate Provider Name and Address Organization Details Last Updated DateTime 4 153.67 cm 26.6 kg/m2 56377.1 8 g 95 % 95 % 86 /min BARAK GOODWIN [place] [facility] 4 10:00:19 Date Recorded Systolic blood pressure Diastolic blood pressure Provider Name and Address Organization Details Last Updated DateTime 02/01/2024 135 mm[Hg] 68 mm[Hg] JENNIFER SOSA MD [address], [place], [address], [facility] 02/01/2024 10:37:47 Social History Question Answer Notes LastModified by Organizat ion Details LastModified Time Tobacco Smoking Status Never Smoker Jessika Saavedra MA [facility], [facility] 09/28/2023 14:55:52 What Type Of Diet Are You Following? DIABETIC Information not available 04/12/2024 How Many Days Of Moderate To Strenuous Exercise, Like A Brisk Walk, Did You Do In The Last 7 Days? 0 Information not available 04/12/2024 How Many Times Per Week Do You Exercise? 1-2 Times Per Week Walk Property + At [facility] Information not available 04/12/2024 Assigned Clinical Studies Specialist: Sapna Blackburn Information not available 04/12/2024 Is [facility] The Lead Clinical Studies Specialist? Yes Information not available 04/12/2024 Level Of Intensity: Quarterly Information not available 04/12/2024 Team Based Care: Yes Information not available 04/12/2024 Vision Barrier Yes Prescription Glasses Information not available 04/12/2024 Financial Barrier Yes Information not available 04/12/2024 Behavioral Health Yes Information not available 04/12/2024 Community Auto Radiator Specialist Yes Information not available 04/12/2024 Dental Services No Information not available 04/12/2024 Diabetes Education Yes Information not available 04/12/2024 Food Resources Yes Informatio n not available 04/12/2024 Fuel Assistance Yes Information not available 04/12/2024 Social Security/Disab ility Yes Information not available 04/12/2024 Diabetes Self Management Program Yes Info Provided Information not available 04/12/2024 Diabetes Support Group Yes Info Provided Information not available 04/12/2024 Health Continuum Of Care Manager For HTN Control Yes Info Provided Information not available 04/12/2024 Brass Cutter On Aging Yes Information not available 04/12/2024 Providers Yes Information no t available 04/12/2024 Other Support System Yes Information not available 04/12/2024 What Was The Date Of Your Most Recent Tobacco Screening? 05/02/2024 [email or web address] Information not available 05/02/2024 Has Tobacco Cessation Counseling Been Provided? No [email or web address] Information not available 09/28/2023 Do You Have Any Dietary Restrictions? No Information not available 04/12/2024 Do You Or Have You Ever Used Any Other Forms Of Tobacco Or Nicotine? No [email or web address] Information not available 09/28/2023 Sex: Female Functional Status Question Answer Note LastModified by Organization D etails LastModified Time What is your exercise level? Moderate Information not available 04/12/2024 Mental Status None recorded. Family History Relationship Description Onset Age of this Age Resolved Age Notes LastModified by Organization Details LastModified Time Father Family history of Hypercholest erolemia Not available 2022 03:50:24 Father Family history of diabetes mellitus type 1 Not available 2022 03:50:27 Mother Family history of Hypercholest erolemia macula r degene ration Not available 06/12/2023 03:50:24 Mother Family history of acute medical disorder macula r degene ration Not available 06/12/2023 03:50:25 Mother Family history of heart failure macula r degene ration Not available 06/12/2023 03:50:27 Notes:*Problem: dece ased as noted. Three children are essentially well. Medical History No medical history recorded. Gynecological HistoryNo gynecological history recorded. Obstetrics History GPAL:G 0 P 0 0 0 0 Immunizations Vaccine Type Date Status Provider Name and Address Organization Details Recorded Time COVID-19, mRNA, LNP-S, PF, marlen-sucrose, 30 mcg/0.3 mL 11/02/[address], [place], [address], [facility]. 11/02/2023 17:30:34 Influenza, high-dose, trivalent, PF 05/02/2024 completed BARAK GOODWIN MA null, [facility] 05/02/2024 11:33:06 COVID-19, mRNA, LNP-S, PF, marlen-sucrose, 30 mcg/0.3 mL 05/02/2024 completed NIKOLAI MONTOYA, [facility] 05/02/2024 11:33:06 Td (adult), 2 Lf tetanus toxoid, preservative free, adsorbed 02/07/2021 completed Not Available [facility] 06/12/2023 06:21:51 Tdap 01/30/2011 completed Not Available [facility] 06:21:51 Influenza, high-dose, trivalent, PF 07/21/2019 completed Not Available [facility] 06/12/2023 06:21:51 Influenza, split virus, quadrivalent, PF 05/09/2021 completed Not Available [facility] 06/12/2023 06:21:52 Pneumococcal Conjugate, unspecified formulation 08/15/2014 completed Not Available [facility] 06/12/2023 06:21:52 Influenza, split virus, quadrivalent, preservative 06/03/2018 completed Not Available [facility] 06/12/2023 06:21:52 Influenza, split virus, quadrivalent, preservative 07/16/2017 completed Not Available [facility] 06/12/2023 06:21:52 Influenza, high-dose, quadrivalent, PF 06/04/2022 completed Not Available [facility] 06/12/2023 06:21:52 Influenza, high-dose, quadrivalent, PF 06/21/2020 completed Not Available [facility] 06/12/2023 06:21:52 COVID-19, mRNA, LNP-S, PF, 100 mcg/0.5mL dose or 50 mcg/0.25mL dose 08/06/2021 completed Not Available [facility] 06/12/2023 06:21:52 COVID-19, mRNA, LNP-S, PF, 100 mcg/0.5mL dose or 50 mcg/0.25mL dose 09/19/2020 completed Not Available [facility] 06/12/2023 06:21:52 SARS-COV-2 (COVID-19) vaccine, UNSPECIFIED 10/17/2020 completed Not Available [facility] 06/12/2023 06:21:52 pneumococcal polysaccharide PPV23 10/24/2009 completed Not Available [facility] 2022 06:21:52 pneumococcal polysaccharide PPV23 04/09/2018 completed Not Available [facility] 2022 06:21:53 influenza, unspecified formulation 06/02/2016 completed Not Available [facility] 06/12/2023 06:21:53 Past Encounters Encounter ID Performer Location Encounter Start Date Encounter Closed Date Diagnosis/Indication Diagnosis SNOMED-CT Code Diagnosis ICD10 Code [id number] JENNIFER SOSA MD [address] [address] 01/07/2024 13:41:38 01/07/2024 15:07:07 Type 2 diabetes mellitus 78697722 E11.9 Hypokalemia 86602542 E87 .6 Syncope 356127967 R55 Orthostati c hypotension 63763918 I95.1 [id number] JENNIFER SOSA MD [address] [address] 02/01/2024 09:53:43 02/01/2024 11:27:03 Anxiety 53916075 F41.9 Atheroscle rosis of coronary artery without angina pectoris 8012454365 40361 I25.10 Atypical chest pain 1025 97451 R07.89 Neuropathy due to type 2 diabetes mellitus 5638426945 77941 E11.40 Orthostati c hypotension 09874833 I95.1 Type 2 emily betes mellitus without complication 417499987 E11.9 Health Concerns Section Related Observation LastModified by Organization Detai ls LastModified Time None Recorded Concern Status LastModified by Organization Details LastModified Time Diabetes mellitus Active [facility] Not Availabl e 04/12/2024 18:59:06 Payers Encounter Date Sequence Insurance Name Policy Number Policy Ruiz Covered Member ID Ruiz Member ID Guarantor Name 02/01/2024 1 MEDICARE [place]: [employer] Lou Mo [id number] Lou Mo Notes Date Note Type Note Provider Name and Address Organization Details Recorded Time 02/01/2024 text/html HPI Notes: Mirtao w-up for atypical chest pain Lou is markedly improved since we increased her metoprolol. I will her episodes of chest pain have eased up, and she is now walking is much as 5 days/week. She typically walks around [address] in [place], about 20 minutes. Lightheadedness also improved, and she has not fallen more than 6 weeks. Mood is improved though she has occasional bad days when she gets upset at family. No palpitations. No acute illness, fever chills or URI. balance is not perfect and she has numbness in the feet she is not having uncontrolled pain. She has yet to get a CGM. She had been all set up by [facility] with a list of phone numbers for suppliers that she just had to call but that did not happen. Now that work has . She has been playing telephone tag with [employer]. She is still having occasional significant lows, the last 1 2 weeks ago around 70, and another one similarly about a week earlier. Low sugars are improved now, last A1c was the best that she has had in 2 years. When she feels ill sugars go up, she had 1 sugar on year 500 about 3 to 4 weeks ago. The vast majority of them are under 200 and typically around 1 50-1 60. No vision change. No new weakness or numbness. She is not playing softball this year but does enjoy watching her daughter play. JENNIFER SOSA MD [address], [place], [id number], [facility]. 02/01/2024 10:43:46 OBGyn Episode No OBEpisode recorded.
--- OUTSIDE RECORDS SUMMARY | 2024-05-02 14:21 | XMS_ITS | Continuity of Care Document ---
Author Organization [facility] Address [address] [place] [address] Care Team Providers Care Digital Sales Executive Name Role Phone Anuradha LEMUSTang Primary Care Physician Encounter NCTY_DC Date(s): 10/22/22 - 10/22/22 [facility] [address] [place] [address] Encounter Diagnosis Costochondral chest pain(Discharge Diagnosis) - 10/22/22 Discharge Disposition: Home or Self Care Attending Physician: Carlos Morse MD Admitting Physician: Carlos Morse MD Allergies, Adverse Reactions, Alerts Substance Reaction Severity Status BEE VENOM PROTEIN (HONEY BEE) Unknown Active ibuprofen Urticaria Unknown Active metFORMIN Diarrhoea Moderate Active linagliptin Head pain Moderate Active Assessment and Plan Future Appointments Immunizations Given and Recorded Vaccine Date Status Refusal Reason influenza virus vaccine, inactivated 05/05/11 Tim rded influenza virus vaccine, inactivated 05/28/10 Tim rded Medications aspirin 81 mg =, Daily, 0 Refill(s) Start Date: 02/15/22 Status: Ordered metoprolol succinate 25 mg =, Daily, 0 Refill(s) Start Date: 02/15/22 Status: Ordered nitroglycerin 0.4 mg sublingual tablet 0.4 mg =, SL, every 5 min, PRN pain, # 100 tab, 0 Refill(s), 11/06/22 17:45:00 EDT, Pharmacy: [id number], 160, cm, 10/22/22 15:28:00 EDT, Height/Length Dosing, 63.05, kg, 10/22/22 15:28:00EDT, Weight Dosing Start Date: 10/22/22 Stop Date: 11/06/22 Status: Ordered sertraline 0 Refill(s) Start Date: 02/15/22 Status: Ordered Results Laboratory List Name Date Lipase Level 10/22/22 Automated Diff 10/22/22 CBC w/ Diff 10/22/22 Comprehensive Metabolic Panel (CMP) 10/22 NT- Pro BNP 10/22/22 Troponin-I 10/22/22 Most recent to oldest [Reference Range]: 1 WBC [5.0-10.0 x10^3/mcL] 6.8 x10^3/mcL (10/22/22 3:36 PM) RBC [4.1-5.3 x10^6/mcL] 4.7 x10^6/mcL (10/22/22 3:36 PM) Neutro Auto [40.0-75.0 %] 62.9 % (10/22/22 3:36 PM) Lymph Auto [20.0-50.0 %] 27.2 % (10/22/22 3:36 PM) Johnston Auto [2.0-15.0 %] 6.4 % (10/22/22 3:36 PM) Basophil Auto [0.0-1.0 %] 0.7 % (10/22/22 3:36 PM) BUN [7-18 mg/dL] 17 mg/dL (10/22/22 3:36 PM) Glucose Level [74-106 mg/dL] 330 mg/dL *HI* (10/22/22 3:36 PM) Potassium Level [3.5-5.1 mmol/L] 3.9 mmo l/L (10/22/22 3:36 PM) MCV [80.0-96.0] 89.2 (10/22/22 3:36 PM) AST [15-37 unit/L] 21 unit/L (10/22/22 3:36 PM) ALT [14-59 unit/L] 27 unit/L (10/22/22 3:36 PM) MCHC [31.0-35.0 g/dL] 34.4 g/dL (10/22/22 3:36 PM) Troponin-I [0.0-51.4 pg/mL] <5.0 pg/mL (10/22/22 3:36 PM) Sodium Level [136-145 mmol/L] 136 mmol/L (10/22/22 3:36 PM) Hct [37.0-47.0 %] 42.1 % (10/22/22 3:36 PM) Lipase Level [16-77 unit/L] 40 unit/L (10/22/22 4:28 PM) Calcium Level [8.5-10.1 mg/dL] 9.1 mg/dL (10/22/22 3:36 PM) Albumin Level [3.4-5.0 g/dL] 3.5 g/dL (10/22/22 3:36 PM) Protein Total [6.4-8.2 g/dL] 7.0 g/dL (10/22/22 3:36 PM) MCH [26.0-32.0 pg] 30.7 pg (10/22/22 3:36 PM) Neutro Absolute 4.2 x10^3/mcL *NA* (10/22/22 3:36 PM) Bilirubin Total [0.2-1.0 mg/dL] 0.5 mg/d L (10/22/22 3:36 PM) Hgb [12.0-16.0 g/dL] 14.5 g/dL (10/22/22 3:36 PM) Alk Phos [46-146 unit/L] 92 unit/L (10/22/22 3:36 PM) Platelets [130-450 x10^3/mcL] 167 x10^3/ mcL (10/22/22 3:36 PM) CO2 [21-32 mmol/L] 30 mmol/L (10/22/22 3:36 PM) eGFR Non-AA [>=60] 52 *LOW* (10/22/22 3:36 PM) eGFR AA [>=60] 52 *LOW* (10/22/22 3:36 PM) NT-proBNP [0-450 pg/mL] 154 pg/mL (10/22/22 3:36 PM) Chloride Level [98-107 mmol/L] 99 mmol/L (10/22/22 3:36 PM) RDW-CV [11.7-17.0 %] 12.4 % (10/22/22 3:36 PM) Imm Gran Auto [0.0-0.9 %] 0.3 % (10/22/22 3:36 PM) Creatinine Level [0.55-1.02 mg/dL] 1.09 mg/dL *HI* (10/22/22 3:36 PM) Eos, Auto [1.0-6.0 %] 2.5 % (10/22/22 3:36 PM) Vital Signs Most recent to oldest [Reference Range]: 1 2 3 Temperature Temporal Artery [36-38 Deg C] 37 Deg C (10/22/22 3:23 PM) Peripheral Pulse Rate [60-100 bpm] 64 bpm (10/22/22 4:18 PM) 61 bpm (10/22/22 4:02 PM) 65 bpm (10/22/22 3:40 PM) Heart Rate Monitored [60-100 bpm] 62 bpm (10/22/22 4:18 PM) 61 bpm (10/22/22 4:02 PM) 64 bpm (10/22/22 3:40 PM) Respiratory Rate [12-24 br/min] 15 br/min (10/22/22 4:18 PM) 16 br/min (10/22/22 4:02 PM) 16 br/min (10/22/22 3:40 PM) Blood Pressure [90-140/60-90 mmHg] 133/57mmHg (10/22/22 4:18 PM) 115/58mmHg (10/22/22 4:02 PM) 117/60mmHg (10/22/22 3:40 PM) Weight Dosing 63.05 kg (10/22/22 3:28 PM) Weight Estimated 63.05 kg (10/22/22 3:23 PM) Height/Length Dosing 160.000 cm (10/22/22 3:28 PM) Height/Length Estimated 160.000 cm (10/22/22 3:23 PM) Social History Social History Type Response Tobacco Never tobacco user T obacco Use:. Sex Female Hospital Discharge Instructions Patient Education 10/22/2022 16:32:49 Nonspecific Chest Pain, Adult Nonspecific Chest Pain, Adult Chest pain is an uncomfortable, tight, or painful feeling in the chest. The pain can feel like a crushing, aching, or squeezing pressure. A person can feel a burning or tingling sensation. Chest paincan also be felt in your back, neck, jaw, shoulder, or arm. This pain can be worse when you move, sneeze, or take a deep breath. Chest pain can be caused by a condition that is life-threatening. This must be treated right away. It can also be caused by something that is not life- threatening. If you have chest pain, it can be hard to know the difference, so it is important to get help right away to make sure that you do not have a serious condition. Some life-threatening causes of chest pain include: ??? Heart attack. ??? A tear in the body's main blood vessel (aortic dissection). ??? Inflammation around your heart (pericarditis). ??? A problem in the lungs, such as a blood clot (pulmonary embolism) or a collapsed lung (pneumothorax). Some non life-threatening causes of chest pain include: ??? Heartburn. ??? Anxiety or stress. ??? Damage to the bones, muscles, and cartilage that make up your chest wall. ??? Pneumonia or bronchitis. ??? Shingles infection (varicella-zoster virus). Your chest pain may come and go. It may also be constant. Your health care provider will do tests and other studies to find the cause of your pain. Treatment will depend on the cause of your chest pain. Follow these instructions at home: Medicines ??? Take gbnx-fdy-mjalnib and prescription medicines only as told by your health care provider. ??? If you were prescribed an antibiotic medicine, take it as told by your health care provider. Donot stop taking the antibiotic even if you start to feel better. Activity ??? Avoid any activities that cause chest pain. ??? Do not lift anything that is heavier than 10 lb (4.5 kg), or the limit that you are told, untilyour health care provider says that it is safe. ??? Rest as directed by your health care provider. ??? Return to your normal activities only as told by your health care provider. Ask your health care provider what activities are safe for you. Lifestyle ??? Do not use any products that contain nicotine or tobacco, such as cigarettes, e-cigarettes, andchewing tobacco. If you need help quitting, ask your health care provider. ??? Do not drink alcohol. ??? Make healthy lifestyle changes as recommended. These may include: ??? Getting regular exercise. Ask your health care provider to suggest some exercises that are safefor you. ??? Eating a heart-healthy diet. This includes plenty of fresh fruits and vegetables, whole grains,low-fat (lean) protein, and low-fat dairy products. A dietitian can help you find healthy eating options. ??? Maintaining a healthy weight. ??? Managing any other health conditions you may have, such as high blood pressure (hypertension) or diabetes. ??? Reducing stress, such as with yoga or relaxation techniques. General instructions ??? Pay attention to any changes in your symptoms. ??? It is up to you to get the results of any tests that were done. Ask your health care provider, or the department that is doing the tests, when your results will be ready. ??? Keep all follow-up visits as told by your health care provider. This is important. ??? You may be asked to go for further testing if your chest pain does not go away. Contact a health care provider if: ??? Your chest pain does not go away. ??? You feel depressed. ??? You have a fever. ??? You notice changes in your symptoms or develop new symptoms. Get help right away if: ??? Your chest pain gets worse. ??? You have a cough that gets worse, or you cough up blood. ??? You have severe pain in your abdomen. ??? You faint. ??? You have sudden, unexplained chest discomfort. ??? You have sudden, unexplained discomfort in your arms, back, neck, or jaw. ??? You have shortness of breath at any time. ??? You suddenly start to sweat, or your skin gets clammy. ??? You feel nausea or you vomit. ??? You suddenly feel lightheaded or dizzy. ??? You have severe weakness, or unexplained weakness or fatigue. ??? Your heart begins to beat quickly, or it feels like it is skipping beats. These symptoms may represent a serious problem that is an emergency. Do not wait to see if the symptoms will go away. Get medical help right away. Call your local emergency services (911 in the [place] Do not drive yourself to the hospital. Summary ??? Chest pain can be caused by a condition that is serious and requires urgent treatment. It may also be caused by something that is not life-threatening. ??? Your health care provider may do lab tests and other studies to find the cause of your pain. ??? Follow your health care provider's instructions on taking medicines, making lifestyle changes, and getting emergency treatment if symptoms become worse. ??? Keep all follow-up visits as told by your health care provider. This includes visits for any further testing if your chest pain does not go away. This information is not intended to replace advice given to you by your health care provider. Make sure you discuss any questions you have with your health care provider. Document Revised: 10/03/2021 Document Reviewed: 10/03/2021 Elsevier Patient Education ?? 2021 [employer] Follow Up Care 10/22/2022 15:22:58 With:Tang Feliciano MD Address: [address] [place] [id number] When:2 to 4 days Physician Emergency department Note * Carlos Morse MD: MODIFY, MODIFY, MODIFY, PERFORM Event Display: ED Note Physician Authored Date: [id number] CRYSTAL BARRIENTOS :1945 Age:77 years Sex:Female Visit Date:10/22/2022 Primary Care Physician: Tang Feliciano MD Basic Information Time Seen: Carlos Morse MD / 10/22/2022 15:31 Chief Complaint Chest pain starting a couple of days ago, on and off, worse today, stated she was sitting in chair when the pressure started getting worse. History of stents being placed approx 5 years ago in [place]. History Of Present Illness: Patient presents to the emergency department??complaining of??chest pain that started??3 days ago on and off states that today is worse and describes the pain as a stabbing??left-sided lateral chest pain??that lasts a few minutes sharp.?? Denies any cough denies any fever denies any chills states that she had??stents placed 5 years ago for similar episodes and was here??last??June for an episode of chest pain as well.?? Also reports mild dizziness Review of Systems: Constitutional: No fevers, chills, sweats Eye: No recent visual problems ENT: No ear pain, nasal congestion, sore throat Respiratory: No shortness of breath, cough Cardiovascular: No Chest pain, palpitations, syncope Gastrointestinal: No nausea, vomiting, diarrhea Genitourinary: No hematuria Noah/Lymph: Negative for bruising tendency, swollen lymph glands Endocrine: Negative for excessive thirst, excessive hunger Musculoskeletal: No back pain, neck pain, joint pain, muscle pain, decreased range of motion Integumentary: No rash, pruritus, abrasions Neurologic: Alert & oriented X 4 Psychiatric: No anxiety, depression Physical Exam Vitals & Measurements T:??37?C ??(Temporal Artery)?? HR:??64??(Peripheral)?? RR:??19?? BP:??120/67?? SpO2:??97%?? HT:??160.000??cm?? WT:??63.05??kg??(Estimated)?? Pain Score:??10?? General: Alert and oriented, well nourished, no acute distress. Eye: PERRL, EOMI, normal conjunctiva. HENT: Normocephalic, clear tympanic membranes, normal hearing, moist oral mucosa, no scleral icterus, no sinus tenderness. Neck: Supple, non-tender, no carotid bruits, no JVD, no lymphadenopathy. Lungs: Clear to auscultation and percussion, non-labored respiration. Heart: Normal rate, regular rhythm, no murmur, gallop or edema. Breast: No lumps, no bumps, no scars, normal nipples. Abdomen: Soft, non-tender, non-distended, normal bowel sounds, no masses. Musculoskeletal: Normal range of motion and strength, no tenderness or swelling. Skin: Skin is warm, dry and appropriate for ethnicity, no rashes or lesions. Neurologic: Awake, alert and oriented X4, CN II-XII intact. Psychiatric: Cooperative, appropriate mood and affect. Medical Decision Making: MDM: Summary: Patient presents to the emergency department complaining of left-sided sharp chest pain more pleuritic in nature worse when she takes deep breath that was??not relieved with??sublingual nitroglycerinand eventually was relieved with morphine in the emergency department. ??EKG was done here which markie??unchanged from previous [address] with [address]-T changes.?? Labs were obtained??and a high-sensitivity troponin which is??negative.?? Patient states she feels much better and she will be discharged home she has an appointment in 1 week with her facilities manager. ? Data Review Analysis Data was reviewed by me ?? Independent review of Studies Imaging Chest x-ray??was done which was negative??EKG was unremarkable Lab: Labs were done which did not show any abnormality??including troponin that was negative. ?? Risk Stratification: Patient with atypical chest pain??that was not relieved by nitroglycerin with a normal EKG and a negative troponin and which was given morphine with complete resolution of his symptoms. ??She states the pain is??pleuritic in nature. ??Most like this patient is not having??chest pain related to??acute coronary syndrome.?? She has a follow-up with facilities manager for she had stents placed 5 years ago. ? Differential Diagnosis: ??1.?? Acute coronary syndrome??2. ??Atypical chest pain??3??costochondritis 4??pleuritic type chest pain ?? Consultants: ? Shared disposition: Patient feels better and she wants to be discharged home she does request??a refill on her sublingual nitro which has . ?? Impression:? Procedure No Qualifying Data Assessment/Plan 1.??Costochondral chest pain??R07.89 Orders: nitroglycerin 0.4 mg sublingual tablet, 0.4 mg =, SL, every 5 min, PRN pain, # 100 tab, 0 Refill(s), 11/06/22 17:45:00 EDT, Pharmacy: [id number], 160, cm, 10/22/22 15:28:00 EDT, Height/Length Dosing, 63.05, kg, 10/22/22 15:28:00 EDT, Weight Dosing Discharge Patient, 10/22/22 17:30:00 EDT, Home Independently, Constant Indicator Patient Discharge Condition improved Discharge Disposition home Patient Education Nonspecific Chest Pain, Adult Follow Up With When Contact Information [facility], Tang Alves MD Within 2 to 4 days [address] [place] [address] Additional Instructions: Medication Reconciliation Changed nitroglycerin (nitroglycerin 0.4 mg sublingual tablet)0.4 Milligrams Sublingual (dissolve under thetongue) every 5 minutes as needed pain. Refills: 0. ?? Unchanged Milligrams every day. ?? metoprolol (metoprolol succinate)25 Milligrams every day. ?? sertraline Problem List/Past Medical History Ongoing No qualifying data Historical No qualifying data Allergies linagliptin??(Head pain) metFORMIN??(Diarrhoea) BEE VENOM PROTEIN (HONEY BEE) ibuprofen??(Urticaria) Social History Alcohol Never Electronic Cigarette/Vaping Electronic Cigarette Use: Never. Substance Use Never Tobacco Never tobacco user Tobacco Use:. Diagnostic Results ECG Normal sinus rhythm??heart rate 63??no acute ST-T changes??unchanged from a previous EKG done??in??May 2022/ Diagnostic Study Interpretation: ? * Final Report * ?? XR Chest 1 View PROCEDURE INFORMATION:?? Exam: XR Chest?? Exam date and time: 10/22/2022 3:52 PM?? Age: 77 years old?? Clinical indication: Pain; Additional info: Chest pain unrelieved?? with nitro? TECHNIQUE:?? Imaging protocol: Radiologic exam of the chest.?? Views: 1 view.? COMPARISON:?? CR XR CHEST 1 VW 05/27/2022 3:25 PM? FINDINGS:?? Lungs: Unremarkable. No consolidation.?? Pleural spaces: Unremarkable. No pleural effusion. No pneumothorax.?? Heart/Mediastinum: Unremarkable. No cardiomegaly.?? Bones/joints: Unremarkable.? IMPRESSION:?? No acute findings.? Report signed by: Jamal Bonilla On 10/22/2022 ??16:28:42 ? URL This document has an image ?? Result type:?XR Chest 1 View Result date:?October 22, 2022 15:52 EDT Result status:?Auth (Verified) Result title:?XR Chest 1 View Performed by:?DomainUser, Generated on October 22, 2022 15:52 EDT Verified by:?DomainUser, Generated on October 22, 2022 15:52 EDT Encounter info:?[id number], [facility], Emergency, 10/22/2022 -?? Contributor system:?[email or web address] ?? Lab Results CBC and Differential?? LATEST RESULTS?? HISTORICAL RESULTS?? WBC?? 10/22/22 15:36?? 6.8?? 06/11/22?? 6.4?? RBC?? 10/22/22 15:36?? 4.7?? 06/11/22?? 4.5?? Hgb?? 10/22/22 15:36?? 14.5?? 06/11/22?? 14.0?? Hct?? 10/22/22 15:36?? 42.1?? 06/11/22?? 39.9?? MCV?? 10/22/22 15:36?? 89.2?? 06/11/22?? 89.5?? MCH?? 10/22/22 15:36?? 30.7?? 06/11/22?? 31.4?? MCHC?? 10/22/22 15:36?? 34.4?? 06/11/22?? 35.1 ??High?? RDW-CV?? 10/22/22 15:36?? 12.4?? 06/11/22?? 13.5?? Platelets?? 10/22/22 15:36?? 167?? 06/11/22?? 166?? Neutro Auto?? 10/22/22 15:36?? 62.9?? 06/11/22?? 71.6?? Lymph Auto?? 10/22/22 15:36?? 27.2?? 06/11/22?? 18.4 ??Low?? Johnston Auto?? 10/22/22 15:36?? 6.4?? 06/11/22?? 7.2?? Eos, Auto?? 10/22/22 15:36?? 2.5?? 06/11/22?? 1.9?? Basophil Auto?? 10/22/22 15:36?? 0.7?? 06/11/22?? 0.6?? Imm Gran Auto?? 10/22/22 15:36?? 0.3?? 06/11/22?? 0.3?? Neutro Absolute?? 10/22/22 15:36?? 4.2?? 06/11/22?? 4.6? Routine Chemistry?? LATEST RESULTS?? HISTORICAL RESULTS?? Sodium Level?? 10/22/22 15:36?? 136?? 06/11/22?? 137?? Potassium Level?? 10/22/22 15:36?? 3.9?? 06/11/22?? 4.0?? Chloride Level?? 10/22/22 15:36?? 99?? 06/11/22?? 101?? CO2?? 10/22/22 15:36?? 30?? 06/11/22?? 29?? Alk Phos?? 10/22/22 15:36?? 92?? 06/11/22?? 72?? AST?? 10/22/22 15:36?? 21?? 06/11/22?? 18?? ALT?? 10/22/22 15:36?? 27?? 06/11/22?? 23?? BUN?? 10/22/22 15:36?? 17?? 06/11/22?? 15?? Glucose Level?? 10/22/22 15:36?? 330 ??High?? 06/11/22?? 216 ??High?? Creatinine Level?? 10/22/22 15:36?? 1.09 ??High?? 06/11/22?? 1.24 ??High?? eGFR AA?? 10/22/22 15:36?? 52 ??Low?? 06/11/22?? 45 ??Low?? eGFR Non-AA?? 10/22/22 15:36?? 52 ??Low?? 06/11/22?? 45 ??Low?? Calcium Level?? 10/22/22 15:36?? 9.1?? 06/11/22?? 9.1?? Protein Total?? 10/22/22 15:36?? 7.0?? 06/11/22?? 6.8?? Albumin Level?? 10/22/22 15:36?? 3.5?? 06/11/22?? 3.5?? Bilirubin Total?? 10/22/22 15:36?? 0.5?? 06/11/22?? 0.4?? Lipase Level?? 10/22/22 16:28?? 40? Cardiac Isoenzymes?? LATEST RESULTS?? HISTORICAL RESULTS?? Troponin-I?? 10/22/22 15:36?? <5.0?? 06/11/22?? <5.0?? NT-proBNP?? 10/22/22 15:36?? 154? Electronically Signed on 10/22/22 05:34 PM Carlos Morse MD Emergency department Discharge instructions * Carlos Morse MD: PERFORM, MODIFY Event Display: ED Discharge Information Authored Date: [id number] CRYSTAL BARRIENTOS :1945 Age:77 years Sex:Female Visit Date:10/22/2022 Primary Care Physician: Tang Feliciano MD Discharge Instructions We would like to thank you for allowing us to assist you with your healthcare needs. The following includes patient education materials and information regarding your injury/illness. Diagnosis from Today's Visit Costochondral chest pain Discharge Vitals Temperature??(Temporal Artery) 98.6 ??F (37 ??C) Heart Rate??(Peripheral) 64 Heart Rate??(Monitored) 62 Respiratory Rate?? 15 Blood Pressure?? 133/57?? Height?? 62.99 in (160.000 cm) Weight??(Estimated) 139.03 lb (63.05 kg) Allergies linagliptin??(Head pain) metFORMIN??(Diarrhoea) BEE VENOM PROTEIN (HONEY BEE) ibuprofen??(Urticaria) What to Do Next You Need to Schedule the Following Appointments Follow Up with??Anuradha [facility], Tang Alves MD When:??Within 2 to 4 days Where: [address] [place] [address] Upcoming Scheduled Appointments 2022 1:40 PM EDT ?? You were treated today on an emergency basis; it may be le to contact your primary care provider to notify them of your visit today. You may have been referred to your regular doctor or a specialist, please follow up as instructed. If your condition worsens or you can't get in to see the doctor, contact the Emergency Department. Medications What How Much When Instructions Next Dose Changed nitroglycerin (nitroglycerin 0.4 mg sublingual tablet) 0.4 Milligrams Sublingual (dissolve under the tongue) Every 5 minutes as needed for pain Pickup at [facility] 415 Unchanged aspirin 81 Milligrams Every day Unchanged metoprolol (metoprolol succinate) 25 Milligrams Every day Unchanged sertraline Pharmacy Information [facility] [id number]: [address] [place] [address] [phone] Education Materials Nonspecific Chest Pain, Adult Chest pain is an uncomfortable, tight, or painful feeling in the chest. The pain can feel like a crushing, aching, or squeezing pressure. A person can feel a burning or tingling sensation. Chest paincan also be felt in your back, neck, jaw, shoulder, or arm. This pain can be worse when you move, sneeze, or take a deep breath. Chest pain can be caused by a condition that is life-threatening. This must be treated right away. It can also be caused by something that is not life- threatening. If you have chest pain, it can be hard to know the difference, so it is important to get help right away to make sure that you do not have a serious condition. Some life-threatening causes of chest pain include: ? Heart attack. ? A tear in the body's main blood vessel (aortic dissection). ? Inflammation around your heart (pericarditis). ? A problem in the lungs, such as a blood clot (pulmonary embolism) or a collapsed lung (pneumothorax). Some non life-threatening causes of chest pain include: ? Heartburn. ? Anxiety or stress. ? Damage to the bones, muscles, and cartilage that make up your chest wall. ? Pneumonia or bronchitis. ? Shingles infection (varicella-zoster virus). Your chest pain may come and go. It may also be constant. Your health care provider will do tests and other studies to find the cause of your pain. Treatment will depend on the cause of your chest pain. Follow these instructions at home: Medicines ? Take gwiw-oqr-ifdfewj and prescription medicines only as told by your health care provider. ? If you were prescribed an antibiotic medicine, take it as told by your health care provider. Do notstop taking the antibiotic even if you start to feel better. Activity ? Avoid any activities that cause chest pain. ? Do not lift anything that is heavier than 10 lb (4.5 kg), or the limit that you are told, until your health care provider says that it is safe. ? Rest as directed by your health care provider. ? Return to your normal activities only as told by your health care provider. Ask your health care provider what activities are safe for you. Lifestyle ? Do not use any products that contain nicotine or tobacco, such as cigarettes, e- cigarettes, and chewing tobacco. If you need help quitting, ask your health care provider. ? Do not drink alcohol. ? Make healthy lifestyle changes as recommended. These may include: ? Getting regular exercise. Ask your health care provider to suggest some exercises that are safe foryou. ? Eating a heart-healthy diet. This includes plenty of fresh fruits and vegetables, whole grains, low-fat (lean) protein, and low-fat dairy products. A dietitian can help you find healthy eating options. ? Maintaining a healthy weight. ? Managing any other health conditions you may have, such as high blood pressure (hypertension) or diabetes. ? Reducing stress, such as with yoga or relaxation techniques. General instructions ? Pay attention to any changes in your symptoms. ? It is up to you to get the results of any tests that were done. Ask your health care provider, or the department that is doing the tests, when your results will be ready. ? Keep all follow-up visits as told by your health care provider. This is important. ? You may be asked to go for further testing if your chest pain does not go away. Contact a health care provider if: ? Your chest pain does not go away. ? You feel depressed. ? You have a fever. ? You notice changes in your symptoms or develop new symptoms. Get help right away if: ? Your chest pain gets worse. ? You have a cough that gets worse, or you cough up blood. ? You have severe pain in your abdomen. ? You faint. ? You have sudden, unexplained chest discomfort. ? You have sudden, unexplained discomfort in your arms, back, neck, or jaw. ? You have shortness of breath at any time. ? You suddenly start to sweat, or your skin gets clammy. ? You feel nausea or you vomit. ? You suddenly feel lightheaded or dizzy. ? You have severe weakness, or unexplained weakness or fatigue. ? Your heart begins to beat quickly, or it feels like it is skipping beats. These symptoms may represent a serious problem that is an emergency. Do not wait to see if the symptoms will go away. Get medical help right away. Call your local emergency services (911 in the [place] Do not drive yourself to the hospital. Summary ? Chest pain can be caused by a condition that is serious and requires urgent treatment. It may also be caused by something that is not life-threatening. ? Your health care provider may do lab tests and other studies to find the cause of your pain. ? Follow your health care provider's instructions on taking medicines, making lifestyle changes, and getting emergency treatment if symptoms become worse. ? Keep all follow-up visits as told by your health care provider. This includes visits for any further testing if your chest pain does not go away. This information is not intended to replace advice given to you by your health care provider. Make sure you discuss any questions you have with your health care provider. Document Revised: 10/03/2021 Document Reviewed: 10/03/2021 [employer] Patient Education ?? 2021 [employer] Tests Performed Medications and Immunizations Administered Given morphine, 4 mg, IV Push Lab Test Name Test Result Date/Time WBC 6.8 x10^3/mcL 10/22/2022 15:36 EDT RBC 4.7 x10^6/mcL 10/22/2022 15:36 EDT Hgb 14.5 g/dL 10/22/2022 15:36 EDT Hct 42.1 % 10/22/2022 15:36 EDT MCV 89.2 10/22/2022 15:36 EDT MCH 30.7 pg 10/22/2022 15:36 EDT MCHC 34.4 g/dL 10/22/2022 15:36 EDT RDW-CV 12.4 % 10/22/2022 15:36 EDT Platelets 167 x10^3/mcL 10/22/2022 15:36 EDT Neutro Auto 62.9 % 10/22/2022 15:36 EDT Lymph Auto 27.2 % 10/22/2022 15:36 EDT Johnston Auto 6.4 % 10/22/2022 15:36 EDT Eos, Auto 2.5 % 10/22/2022 15:36 EDT Basophil Auto 0.7 % 10/22/2022 15:36 EDT Imm Gran Auto 0.3 % 10/22/2022 15:36 EDT Neutro Absolute 4.2 x10^3/mcL 10/22/2022 15:36 EDT Sodium Level 136 mmol/L 10/22/2022 15:36 EDT Potassium Level 3.9 mmol/L 10/22/2022 15:36 EDT Chloride Level 99 mmol/L 10/22/2022 15:36 EDT CO2 30 mmol/L 10/22/2022 15:36 EDT Alk Phos 92 unit/L 10/22/2022 15:36 EDT AST 21 unit/L 10/22/2022 15:36 EDT ALT 27 unit/L 10/22/2022 15:36 EDT BUN 17 mg/dL 10/22/2022 15:36 EDT Glucose Level 330 mg/dL 10/22/2022 15:36 EDT Creatinine Level 1.09 mg/dL 10/22/2022 15:36 EDT eGFR AA 52 10/22/2022 15:36 EDT eGFR Non-AA 52 10/22/2022 15:36 EDT Calcium Level 9.1 mg/dL 10/22/2022 15:36 EDT Protein Total 7.0 g/dL 10/22/2022 15:36 EDT Albumin Level 3.5 g/dL 10/22/2022 15:36 EDT Bilirubin Total 0.5 mg/dL 10/22/2022 15:36 EDT Lipase Level 40 unit/L 10/22/2022 16:28 EDT Troponin-I <5.0 pg/mL 10/22/2022 15:36 EDT NT-proBNP 154 pg/mL 10/22/2022 15:36 EDT Patient/Net Web Developer Signature Patient Name:CRYSTAL BARRIENTOS I have received this information and my questions have been answered. Patient/Net Web Developer Name: Patient/Net Web Developer Signature: Relationship to Patient: Witness Name/Signature: Date: Electronically Signed on: 10/22/2022 17:33 EDTSigned by:SANA Emergency department Note * Paola Beasley: PERFORM Event Display: ED Notes Authored Date: [id number] Patient Care team information Care Team Personnel Name: Tang Feliciano MD Position: Physician Member Role: Primary Care Physician Address: Address: [address] [place] [id number] Name: Enoc Monzon RN Position: Nurse Member Role: ED Nurse Name: Carlos Morse MD Position: Physician Member Role: Attending Physician Address: Address: [address] [place] [id number] [place] [address] Care Team Related Persons Name: PHILLY DENNIS Address: Home
--- OUTSIDE RECORDS SUMMARY | 2024-05-02 14:21 | XMS_ITS | Continuity of Care Document ---
Author Organization [facility] Address [address] [place] [address] Care Team Providers Care Medical Administrative Technician Name Role Phone Tang Feliciano Primary Care Physician Encounter [facility] [id number] Date(s): 11/13/22 - 11/13/22 [facility] [address] [place] [address] Discharge Disposition: Home Allergies, Adverse Reactions, Alerts Substance Reaction Severity [...] Daily, # 30 tab, 12 Refill(s), Pharmacy: [facility] [id number], 160, cm, 10/22/22 15:28:00 [...] Member Role: Primary Care Physician Address: Address: [address] [place] [phone] [place] Care Team Related Persons Name: DENNIS FRAGA Address: Home
--- OUTSIDE RECORDS SUMMARY | 2024-05-02 14:21 | XMS_ITS | Continuity of Care Document ---
Author Organization [facility] Address [address] [place] [address] Care Team Providers Care Machine Featheredger And Reducer Name Role Phone [place] [facility] Primary Care Physician Encounter [facility] Date(s): 12/11/22 - 12/12/22 [facility] [address] [place] [address] Encounter Diagnosis Weakness(Discharge Diagnosis) - 12/11/22 Weakness(Final) - Discharge Disposition: Home or Self Care Attending Physician: Bam Johnson MD Admitting Physician: Bam Johnson MD Allergies, Adverse Reactions, Alerts Substance Reaction Severity Status BEE VENOM PROTEIN (HONEY BEE) Unknown Active ibuprofen Urticaria Unknown Active metFORMIN Diarrhoea Moderate Active linagliptin Head pain Moderate Active Assessment and Plan Extracted from: Title:Clinical Document Author:Stephanie Ho te:12/12/22 Diagnosis: 1. Weakness Comment: Diagnosis: Tachycardia Comment: Future Appointments Diagnostic Tests Pending * Tick-Borne Panel PCR, WB LOW 12/11/22 * Urine Culture 12/11/22 Future Scheduled Tests Radiology* NM Myocardial SPECT Drug Stress Multi 11/13/22 Functional Status 12/11/22 Other exposure to Infectious Disease Non e Immunizations Given and Recorded Vaccine Date Status Refusal Reason influenza virus vaccine, inactivated 05/05/11 Tim rded influenza virus vaccine, inactivated 05/28/10 Tim rded Medications aspirin 81 mg =, Daily, 0 Refill(s) Start Date: 02/15/22 Status: Ordered doxycycline hyclate 100 mg oral capsule 100 mg = 1 cap, Oral, BID, X 10 days, # 20 cap, 0 Refill(s), 12/22/22 0:33:00 EDT, Pharmacy: [id number], 157, cm, 12/11/22 20:35:00 EDT, Height/Length Dosing, 64, kg, 12/11/22 20:35:00 EDT, Weight Dosing Start Date: 12/12/22 Stop Date: 12/22/22 Status: Ordered metoprolol succinate 25 mg =, Daily, 0 Refill(s) Start Date: 02/15/22 Status: Ordered Plavix 75 mg oral tablet 75 mg = 1 tab, Oral, Daily, # 30 tab, 12 Refill(s), Pharmacy: [id number], 160, cm, 10/22/22 15:28:00 EDT, Height/Length Dosing, 63.05, kg, 10/22/22 15:28:00 EDT, Weight Dosing Start Date: 11/13/22 Status: Ordered sertraline 0 Refill(s) Start Date: 02/15/22 Status: Ordered Results Laboratory List Name Date Troponin-I 12/11/22 Urinalysis Microscopic 12/11/22 Urinalysis with Micro if Indicated and C ulture if Indicated 12/11/22 Lactic Acid 12/11/22 C-Reactive Protein High Sensitivity 12/11 CBC w/ Diff 12/11/22 Comprehensive Metabolic Panel 12/11/22 Free T4 12/11/22 Lipase Level 12/11/22 Magnesium Level 12/11/22 Thyroid Stimulating Hormone (TSH) 3 Troponin-I 12/11/22 Automated Diff 12/11/22 Most recent to oldest [Reference Range]: 1 2 WBC [5.0-10.0 x10^3/mcL] 5.5 x10^3/mcL (12/11/22 9:06 PM) RBC [4.1-5.3 x10^6/mcL] 4.7 x10^6/mcL (12/11/22 9:06 PM) Neutro Auto [40.0-75.0 %] 51.5 % (12/11/22 9:06 PM) Lymph Auto [20.0-50.0 %] 37.0 % (12/11/22 9:06 PM) [place] Auto [2.0-15.0 %] 8.1 % (12/11/22 9:06 PM) Basophil Auto [0.0-1.0 %] 0.5 % (12/11/22 9:06 PM) BUN [7-18 mg/dL] 11 mg/dL (12/11/22 9:06 PM) UA Color Yellow (12/11/22: PM) UA WBC [0-3] 3-5 *ABN* (12/11/22: PM) Glucose Level [74-106 mg/dL] 261 mg/dL *HI* (12/11/22: PM) Potassium Level [3.5-5.1 mmol/L] 3.2 mmo l/L *LOW* (12/11/22: PM) MCV [80.0-96.0 fL] 88.7 fL (12/11/22: PM) UA Urobilinogen Normal (12/11/22 PM) UA Hyal Cast Rare /HPF (12/11/22: PM) T4 Free [0.76-1.46 ng/dL] 1.01 ng/dL (12/11/22: PM) UA Bili [Negative] 1+ *ABN* (12/11/22: PM) UA Ketones Negative (12/11/22: PM) AST [15-37 unit/L] 20 unit/L (12/11/22: PM) ALT [14-59 unit/L] 30 unit/L (12/11/22: PM) MCHC [31.0-35.0 g/dL] 34.9 g/dL (12/11/22 9: PM) UA Ca Ox Crystal Moderate /HPF (12/11/22: PM) Troponin-I [0.0-51.4 pg/mL] 11.0 pg/mL (12/11/22 11:00 PM) 10.2 pg/mL (12/11/22 9:06 PM) Sodium Level [136-145 mmol/L] 140 mmol/L (12/11/22 9:06 PM) UA RBC [0-2] 0-2 (12/11/22:25 PM) UA Leuk Est Negative (12/11/22:25 PM) UA Nitrite Negative (12/11/22: PM) UA Glucose [Negative] 1+ *ABN* (5/11/23 10:25 PM) Hct [37.0-47.0 %] 41.6 % (12/11/22 9:06 PM) UA Bacteria Rare /HPF (12/11/22: PM) Lipase Level [16-77 unit/L] 31 unit/L (12/11/22 9:06 PM) Calcium Level [8.5-10.1 mg/dL] 9.3 mg/dL (12/11/22:06 PM) Albumin Level [3.4-5.0 g/dL] 3.6 g/dL (12/11/22:06 PM) Protein Total [6.4-8.2 g/dL] 7.1 g/dL (12/11/22:06 PM) UA Protein 1+ *ABN* (12/11/22:25 PM) MCH [26.0-32.0 pg] 30.9 pg (12/11/22: PM) Magnesium Level [1.8-2.4 mg/dL] 1.8 mg/d L (12/11/22: PM) Neutro Absolute 2.8 x10^3/mcL *NA* (12/11/22:06 PM) Bilirubin Total [0.2-1.0 mg/dL] 0.7 mg/d L (12/11/22 9:06 PM) Hgb [12.0-16.0 g/dL] 14.5 g/dL (12/11/22 9:06 PM) Alk Phos [46-146 unit/L] 85 unit/L (12/11/22: PM) UA Blood Negative (12/11/22:25 PM) UA Mucous Few /HPF *ABN* (12/11/22: PM) UA Spec Grav >=1.030 *NA* (12/11/22 10:25 PM) Platelets [130-450 x10^3/mcL] 137 x10^3/ mcL (12/11/22 9:06 PM) CO2 [21-32 mmol/L] 29 mmol/L (12/11/22 9:06 PM) Lactic Acid Lvl [0.7-2.0 mmol/L] 1.6 mmo l/L (12/11/22 9:15 PM) UA Squam Epithelial [None Seen] Moderate *ABN* (12/11/22 10:25 PM) TSH [0.358-3.740 mcIntlUnit/mL] 2.048 mc IntlUnit/mL (12/11/22 9:06 PM) UA pH 5.5 *NA* (12/11/22 10:25 PM) eGFR Non-AA [>=60] 47 *LOW* (12/11/22 9:06 PM) eGFR AA [>=60] 47 *LOW* (12/11/22 9:06 PM) UA Appear Clear (12/11/22 10:25 PM) Chloride Level [98-107 mmol/L] 102 mmol/ L (12/11/22 9:06 PM) RDW-CV [11.7-17.0 %] 13.5 % (12/11/22 9:06 PM) Imm Gran Auto [0.0-0.9 %] 0.2 % (12/11/22 9:06 PM) CRP High Sens [0.00-3.00 mg/L] 4.81 mg/L *HI* (12/11/22 9:06 PM) UA Culture Ind?. Indicated (12/11/22 10:25 PM) Creatinine Level [0.55-1.02 mg/dL] 1.19 mg/dL *HI* (12/11/22 9:06 PM) Eos, Auto [1.0-6.0 %] 2.7 % (12/11/22 9:06 PM) Vital Signs Most recent to oldest [Reference Range]: 1 2 3 Temperature Temporal Artery [36-38 Deg C] 36.7 Deg C (12/12/22 12:34 AM) 37 Deg C (12/11/22 8:32 PM) Peripheral Pulse Rate [60-100 bpm] 107 bpm *HI* (12/11/22 8:32 PM) Heart Rate Monitored [60-100 bpm] 92 bpm (12/12/22 12:34 AM) 91 bpm (12/11/22 11:51 PM) 100 bpm (12/11/22 10:30 PM) Respiratory Rate [12-24 br/min] 18 br/min (12/12/22 12:34 AM) 19 br/min (12/11/22 11:51 PM) 18 br/min (12/11/22 10:30 PM) Blood Pressure [90-140/60-90 mmHg] 130/72mmHg (12/12/22 12:34 AM) 116/57mmHg (12/11/22 11:51 PM) 138/69mmHg (12/11/22 10:30 PM) Weight Dosing 64.00 kg (12/11/22 8:35 PM) Weight Estimated 64.00 kg (12/11/22 8:32 PM) Height/Length Dosing 157.000 cm (12/11/22 8:35 PM) Height/Length Estimated 157.000 cm (12/11/22 8:32 PM) Social History Social History Type Response Tobacco Never tobacco user T obacco Use:. Sex Female Hospital Discharge Instructions Patient Education 12/11/2022 23:14:11 Weakness, [id number] Weakness Weakness is a lack of strength. You may feel weak all over your body (generalized), or you may feelweak in one part of your body (focal). There are many potential causes of weakness. Sometimes, the cause of your weakness may not be known. Some causes of weakness can be serious, so it is important to see your doctor. Follow these instructions at home: Activity ??? Rest as needed. ??? Try to get enough sleep. Most adults need 7???8 hours of sleep each night. Talk to your doctor about how much sleep you need each night. ??? Do exercises, such as arm curls and leg raises, for 30 minutes at least 2 days a week or as told by your doctor. ??? Think about working with a physical therapist or color strainer to help you get stronger. General instructions ??? Take vkql-eeg-fgzjnbu and prescription medicines only as told by your doctor. ??? Eat a healthy, well-balanced diet. This includes: ??? Proteins to build muscles, such as lean meats and fish. ??? Fresh fruits and vegetables. ??? Carbohydrates to boost energy, such as whole grains. ??? Drink enough fluid to keep your pee (urine) pale yellow. ??? Keep all follow-up visits as told by your doctor. This is important. Contact a doctor if: ??? Your weakness does not get better or it gets worse. ??? Your weakness affects your ability to: ??? Think clearly. ??? Do your normal daily activities. Get help right away if you: ??? Have sudden weakness on one side of your face or body. ??? Have chest pain. ??? Have trouble breathing or shortness of breath. ??? Have problems with your vision. ??? Have trouble talking or swallowing. ??? Have trouble standing or walking. ??? Are light-headed. ??? Pass out (lose consciousness). Summary ??? Weakness is a lack of strength. You may feel weak all over your body or just in one part of your body. ??? There are many potential causes of weakness. Sometimes, the cause of your weakness may not be known. ??? Rest as needed, and try to get enough sleep. Most adults need 7???8 hours of sleep each night. ??? Eat a healthy, well-balanced diet. This information is not intended to replace advice given to you by your health care provider. Make sure you discuss any questions you have with your health care provider. Document Revised: 02/23/2019 Document Reviewed: 02/23/2019 [employer] Patient Education ?? 2021 [employer]. Follow Up Care 12/11/2022 20:31:57 With:Tang Feliciano MD Address: [address] [place] [id number] When:5 to 7 days Physician Emergency department Note * Bam Johnson MD: PERFORM Event Display: ED Note Physician Authored Date: [id number] CRYSTAL BARRIENTOS :1945 Age:77 years Sex:Female Visit Date:12/11/2022 Primary Care Physician: Tang Feliciano MD Basic Information Time Seen: Bam Johnson MD / 12/11/2022 20:42 Chief Complaint patient arrives c/o tachycardia and general unwell felling all day History Of Present Illness: Patient is a 77-year-old female presenting with multiple complaints. ??Patient states that ever since June??she has having significant weakness, intermittent chest pressure??as well as nausea andvomiting. ??Patient states that several months before she did note a bull's-eye rash to her right face??she does have??2 dogs and gardens quite frequently but did not notice any obvious tick bites.??Patient states that since that time she has been going downhill.?? She presents today as she has been diffusely weak,??noted that her heart rate was high??and had a mild chest pressure. ??She described this as a slight pressure that would come and go with nothing make it better??and sitting up making it much worse no associated shortness of breath??but has had on and off nausea and vomiting over the last??several weeks.?? Patient's main concern is that she feels??diffusely weak with no focal weakness noted. Physical Exam Vitals & Measurements T:??36.7?C ??(Temporal Artery)?? HR:??92??(Monitored)?? RR:??18?? BP:??130/72?? SpO2:??96%?? HT:??157.000??cm?? WT:??64.00??kg??(Estimated)?? O2 Therapy:??Room air?? General: Alert and oriented, well nourished,?No??acute distress Lungs: Clear to auscultation and percussion,?Non-labored?? respiration Heart:?Normal?? rate,?Regular??rhythm,?No??murmur,?No??gallop,?No??edema Abdomen: Soft, non-tender, non-distended,?Normal?? bowel sounds,?No??masses Musculoskeletal:?Normal?? range of motion and strength,?No??tenderness,?No??swelling Skin: Skin is warm, dry and pink,?No??rashes,?No??lesions Neurologic: Awake, alert and oriented X4,, cranial nerves intact, normal sensation throughout, 5 out of 5 strength Medical Decision Making: Patient is a 77-year-old female??presenting with multiple complaints that all began since June but have been getting worse. ??My concern with this bull's- eye type rash that she may have had undiagnosed Lyme disease however??given her chest discomfort and diffuse weakness we will initiate broad lab work-up??that all returned reassuring including a normal white count, normal lactate??and normal0 and 2-hour troponin. ??Given that she has had ongoing symptoms for several months I doubt acute pathology.?? However given the history of the bull's-eye type rash and vague nonspecific symptoms we will send out a??tick??panel??and start?? for presumed Lyme. Reexamination/Reevaluation Upon reevaluation patient is well-appearing??no complaints of a dull headache at this time??will discharge to follow-up with her primary care physician. Assessment/Plan 1.??Weakness??R53.1 Orders: doxycycline hyclate 100 mg oral capsule, 100 mg = 1 cap, Oral, BID, X 10 days, # 20 cap, 0 Refill(s), 12/22/22 0:33:00 EDT, Pharmacy: [id number], 157, cm, 12/11/22 20:35:00 EDT, Height/Length Dosing, 64, kg, 12/11/22 20:35:00 EDT, Weight Dosing doxycycline monohydrate, 100 mg = 1 cap, Oral, Cap, every 12 hr for 10 days, Antibiotic Indication Other (specify in order comments), First Dose: 12/12/22 0:14:00 EDT, Stop Date: 12/22/22 0:13:00 EDT, Physician Stop, STAT CV EKG ED, 12/11/22 20:33:00 EDT, Routine, Reason: ED - empiric, Stop date and time 12/11/22 20:33:00 EDT, ORD_SET_REQ_DT_RANGE, [facility] Internal Person Id Discharge Patient, 12/12/22 0:16:00 EDT, Home Independently, Constant Indicator Tick-Borne Panel PCR, WB LOW, Blood, Routine, 12/11/22 21:05:00 EDT, Once, Nurse collect Urine Culture, Urine, Stat collect, ST - Stat, 12/11/22 22:25:00 EDT, Once, Nurse collect, Collected, 12/11/22 22:25:00 EDT, Print Label, [id number] Patient Discharge Condition Stable Discharge Disposition Discharge Patient Education Weakness, Yraq-vm-Hsad Follow Up With When [facility] Within 5 to 7 days [address] [place] [address] Additional Instructions: Medication Reconciliation New Prescription doxycycline (doxycycline hyclate 100 mg oral capsule)1 Capsules Oral (given by mouth) 2 times a dayfor 10 Days. Refills: 0. ?? Unchanged Milligrams every day. ?? clopidogrel (Plavix 75 mg oral tablet)1 tab Oral (given by mouth) every day. Refills: 12. ?? metoprolol (metoprolol succinate)25 Milligrams every day. ?? sertraline Problem List/Past Medical History Ongoing No qualifying data Historical No qualifying data Medication Administration Given doxycycline monohydrate, 100 mg, Oral Tylenol, 1000 mg, Oral Allergies linagliptin??(Head pain) metFORMIN??(Diarrhoea) BEE VENOM PROTEIN (HONEY BEE) ibuprofen??(Urticaria) Social History Alcohol Never Electronic Cigarette/Vaping Electronic Cigarette Use: Never. Substance Use Never Tobacco Never tobacco user Tobacco Use:. Lab Results CBC and Differential?? LATEST RESULTS?? HISTORICAL RESULTS?? WBC?? 12/11/22 21:06?? 5.5?? 11/14/22?? 6.9?? RBC?? 12/11/22 21:06?? 4.7?? 11/14/22?? 4.4?? Hgb?? 12/11/22 21:06?? 14.5?? 11/14/22?? 13.8?? Hct?? 12/11/22 21:06?? 41.6?? 11/14/22?? 39.1?? MCV?? 12/11/22 21:06?? 88.7?? 11/14/22?? 88.5?? MCH?? 12/11/22 21:06?? 30.9?? 11/14/22?? 31.2?? MCHC?? 12/11/22 21:06?? 34.9?? 11/14/22?? 35.3 ??High?? RDW-CV?? 12/11/22 21:06?? 13.5?? 11/14/22?? 13.0?? Platelets?? 12/11/22 21:06?? 137?? 11/14/22?? 154?? Neutro Auto?? 12/11/22 21:06?? 51.5?? 11/14/22?? 65.0?? Lymph Auto?? 12/11/22 21:06?? 37.0?? 11/14/22?? 25.7?? [place] Auto?? 12/11/22 21:06?? 8.1?? 11/14/22?? 6.6?? Eos, Auto?? 12/11/22 21:06?? 2.7?? 11/14/22?? 2.0?? Basophil Auto?? 12/11/22 21:06?? 0.5?? 11/14/22?? 0.4?? Imm Gran Auto?? 12/11/22 21:06?? 0.2?? 11/14/22?? 0.3?? Neutro Absolute?? 12/11/22 21:06?? 2.8?? 11/14/22?? 4.5? Routine Chemistry?? LATEST RESULTS?? HISTORICAL RESULTS?? Sodium Level?? 12/11/22 21:06?? 140?? 11/14/22?? 136?? Potassium Level?? 12/11/22 21:06?? 3.2 ??Low?? 11/14/22?? 3.5?? Chloride Level?? 12/11/22 21:06?? 102?? 11/14/22?? 101?? CO2?? 12/11/22 21:06?? 29?? 11/14/22?? 30?? Alk Phos?? 12/11/22 21:06?? 85?? 10/22/22?? 92?? AST?? 12/11/22 21:06?? 20?? 10/22/22?? 21?? ALT?? 12/11/22 21:06?? 30?? 10/22/22?? 27?? BUN?? 12/11/22 21:06?? 11?? 11/14/22?? 14?? Glucose Level?? 05/11/23 21:06?? 261 ??High?? 11/14/22?? 271 ??High?? Creatinine Level?? 12/11/22 21:06?? 1.19 ??High?? 11/14/22?? 1.07 ??High?? eGFR AA?? 12/11/22 21:06?? 47 ??Low?? 11/14/22?? 54 ??Low?? eGFR Non-AA?? 12/11/22 21:06?? 47 ??Low?? 11/14/22?? 54 ??Low?? Calcium Level?? 12/11/22 21:06?? 9.3?? 11/14/22?? 8.7?? Protein Total?? 12/11/22 21:06?? 7.1?? 10/22/22?? 7.0?? Albumin Level?? 12/11/22 21:06?? 3.6?? 10/22/22?? 3.5?? Bilirubin Total?? 12/11/22 21:06?? 0.7?? 10/22/22?? 0.5?? Lactic Acid Lvl?? 12/11/22 21:15?? 1.6? Lipase Level?? 12/11/22 21:06?? 31?? 10/22/22?? 40?? Magnesium Level?? 12/11/22 21:06?? 1.8? CRP High Sens?? 12/11/22 21:06?? 4.81 ??High?? 11/14/22?? 25.22 ??High? Cardiac Isoenzymes?? LATEST RESULTS?? HISTORICAL RESULTS?? Troponin-I?? 12/11/22 23:00?? 11.0?? 10/22/22?? <5.0? Thyroid Studies?? LATEST RESULTS?? T4 Free?? 12/11/22 21:06?? 1.01?? TSH?? 12/11/22 21:06?? 2.048? UA Macroscopic?? LATEST RESULTS?? HISTORICAL RESULTS?? UA Color?? 12/11/22 22:25?? Yellow?? 06/11/22?? Yellow?? UA Appear?? 12/11/22 22:25?? Clear?? 06/11/22?? Clear?? UA Glucose?? 12/11/22 22:25?? 1+ Abnormal?? 06/11/22?? 3+ Abnormal?? UA Bili?? 12/11/22 22:25?? 1+ Abnormal?? 06/11/22?? Negative?? UA Ketones?? 12/11/22 22:25?? Negative?? 06/11/22?? Negative?? UA Spec Grav?? 12/11/22 22:25?? >=1.030?? 06/11/22?? 1.015?? UA Blood?? 12/11/22 22:25?? Negative?? 06/11/22?? Negative?? UA pH?? 12/11/22 22:25?? 5.5?? 06/11/22?? 5.5?? UA Protein?? 12/11/22 22:25?? 1+ Abnormal?? 06/11/22?? Negative?? UA Urobilinogen?? 12/11/22 22:25?? Normal?? 06/11/22?? Normal?? UA Nitrite?? 12/11/22 22:25?? Negative?? 06/11/22?? Negative?? UA Leuk Est?? 12/11/22 22:25?? Negative?? 06/11/22?? Negative?? UA Culture Ind?.?? 12/11/22 22:25?? Indicated? UA Microscopic?? LATEST RESULTS?? UA WBC?? 12/11/22 22:25?? 3-5 Abnormal?? UA RBC?? 12/11/22 22:25?? 0-2?? UA Squam Epithelial?? 12/11/22 22:25?? Moderate Abnormal?? UA Mucous?? 12/11/22 22:25?? Few Abnormal?? UA Bacteria?? 12/11/22 22:25?? Rare?? UA Hyal Cast?? 12/11/22 22:25?? Rare?? UA Ca Ox Crystal?? 12/11/22 22:25?? Moderate? Electronically Signed on 12/12/22 01:42 AM Bam Johnson MD Emergency department Discharge instructions * Bam Johnson MD: PERFORM Event Display: ED Discharge Information Authored Date: [id number] FLOYD CRYSTAL Luis :1945 Age:77 years Sex:Female Visit Date:12/11/2022 Primary Care Physician: Tang Feliciano MD Discharge Instructions We would like to thank you for allowing us to assist you with your healthcare needs. The following includes patient education materials and information regarding your injury/illness. Diagnosis from Today's Visit Weakness Discharge Vitals Temperature??(Temporal Artery) 98.6 ??F (37 ??C) Heart Rate??(Monitored) 91 Respiratory Rate?? 19 Blood Pressure?? 116/57?? Height?? 61.81 in (157.000 cm) Weight??(Estimated) 141.12 lb (64.00 kg) Allergies linagliptin??(Head pain) metFORMIN??(Diarrhoea) BEE VENOM PROTEIN (HONEY BEE) ibuprofen??(Urticaria) What to Do Next Instructions from Your Care Team Today you are seen in the emergency department for your high heart rate??and weakness. ??We did a thorough exam??with no obvious etiology found.?? We did send a tick test??and we will call you with apositive result.?? In the meantime we will send with a prescription for doxycycline for presumed Lyme disease. ??Please follow closely with your primary care physician and return to the emergency department for any new or worsening symptoms. You Need to Schedule the Following Appointments Follow Up with??Tang Feliciano MD When:??Within 5 to 7 days Where: [facility] [place] [id number] [place] [address] Upcoming Scheduled Appointments Thursday 10:00 AM EDT ?? Where: [facility] Cardiology Status: Confirmed Thursday 1:40 PM EDT ?? With: Davie Petersen MD Where: [facility] Cardiology [address] [place] [phone] Status: Confirmed You were treated today on an emergency [...] Emergency Department. Medications What How Much When Why Instructions Next Dose New doxycycline (doxycycline hyclate 100 mg oral capsule) 1 Capsules Oral (given by mouth) 2 times a day Duration: [facility] Unchanged aspirin 81 Milligrams Every day Unchanged clopidogrel (Plavix 75 mg oral tablet) 1 tab Oral (given by mouth) Every day CAD (coronary artery disease) Unchanged metoprolol (metoprolol succinate) 25 Milligrams Every day Unchanged sertraline Pharmacy Information [id number]: [address] [place] [address] [phone] Education Materials Weakness Weakness is a lack of strength. You may feel weak all over your body (generalized), or you may feelweak in one part of your body (focal). There are many potential causes of weakness. Sometimes, the cause of your weakness may not be known. Some causes of weakness can be serious, so it is important to see your doctor. Follow these instructions at home: Activity ? Rest as needed. ? Try to get enough sleep. Most adults need 7???8 hours of sleep each night. Talk to your doctor about how much sleep you need each night. ? Do exercises, such as arm curls and leg raises, for 30 minutes at least 2 days a week or as told byyour doctor. ? Think about working with a physical therapist or color strainer to help you get stronger. General instructions ? Take crhz-gvy-kyvgswm and prescription medicines only as told by your doctor. ? Eat a healthy, well-balanced diet. This includes: ? Proteins to build muscles, such as lean meats and fish. ? Fresh fruits and vegetables. ? Carbohydrates to boost energy, such as whole grains. ? Drink enough fluid to keep your pee (urine) pale yellow. ? Keep all follow-up visits as told by your doctor. This is important. Contact a doctor if: ? Your weakness does not get better or it gets worse. ? Your weakness affects your ability to: ? Think clearly. ? Do your normal daily activities. Get help right away if you: ? Have sudden weakness on one side of your face or body. ? Have chest pain. ? Have trouble breathing or shortness of breath. ? Have problems with your vision. ? Have trouble talking or swallowing. ? Have trouble standing or walking. ? Are light-headed. ? Pass out (lose consciousness). Summary ? Weakness is a lack of strength. You may feel weak all over your body or just in one part of your body. ? There are many potential causes of weakness. Sometimes, the cause of your weakness may not be known. ? Rest as needed, and try to get enough sleep. Most adults need 7???8 hours of sleep each night. ? Eat a healthy, well-balanced diet. This information is not intended to replace advice given to you by your health care provider. Make sure you discuss any questions you have with your health care provider. Document Revised: 02/23/2019 Document Reviewed: 02/23/2019 [employer] Patient Education ?? 2021 [employer] Tests Performed Medications and Immunizations Administered Given doxycycline monohydrate, 100 mg, Oral Tylenol, 1000 mg, Oral Lab Test Name Test Result Date/Time WBC 5.5 x10^3/mcL 12/11/2022 21:06 EDT RBC 4.7 x10^6/mcL 12/11/2022 21:06 EDT Hgb 14.5 g/dL 12/11/2022 21:06 EDT Hct 41.6 % 12/11/2022 21:06 EDT MCV 88.7 fL 12/11/2022 21:06 EDT MCH 30.9 pg 12/11/2022 21:06 EDT MCHC 34.9 g/dL 12/11/2022 21:06 EDT RDW-CV 13.5 % 12/11/2022 21:06 EDT Platelets 137 x10^3/mcL 12/11/2022 21:06 EDT Neutro Auto 51.5 % 12/11/2022 21:06 EDT Lymph Auto 37.0 % 12/11/2022 21:06 EDT [place] Auto 8.1 % 12/11/2022 21:06 EDT Eos, Auto 2.7 % 12/11/2022 21:06 EDT Basophil Auto 0.5 % 12/11/2022 21:06 EDT Imm Gran Auto 0.2 % 12/11/2022 21:06 EDT Neutro Absolute 2.8 x10^3/mcL 12/11/2022 21:06 EDT Sodium Level 140 mmol/L 12/11/2022 21:06 EDT Potassium Level 3.2 mmol/L 12/11/2022 21:06 EDT Chloride Level 102 mmol/L 12/11/2022 21:06 EDT CO2 29 mmol/L 12/11/2022 21:06 EDT Alk Phos 85 unit/L 12/11/2022 21:06 EDT AST 20 unit/L 12/11/2022 21:06 EDT ALT 30 unit/L 12/11/2022 21:06 EDT BUN 11 mg/dL 12/11/2022 21:06 EDT Glucose Level 261 mg/dL 12/11/2022 21:06 EDT Creatinine Level 1.19 mg/dL 12/11/2022 21:06 EDT eGFR AA 47 12/11/2022 21:06 EDT eGFR Non-AA 47 12/11/2022 21:06 EDT Calcium Level 9.3 mg/dL 12/11/2022 21:06 EDT Protein Total 7.1 g/dL 12/11/2022 21:06 EDT Albumin Level 3.6 g/dL 12/11/2022 21:06 EDT Bilirubin Total 0.7 mg/dL 12/11/2022 21:06 EDT Lactic Acid Lvl 1.6 mmol/L 12/11/2022 21:15 EDT Lipase Level 31 unit/L 12/11/2022 21:06 EDT Magnesium Level 1.8 mg/dL 12/11/2022 21:06 EDT CRP High Sens 4.81 mg/L 12/11/2022 21:06 EDT Troponin-I 11.0 pg/mL 12/11/2022 23:00 EDT T4 Free 1.01 ng/dL 12/11/2022 21:06 EDT TSH 2.048 mcIntlUnit/mL 12/11/2022 21:06 EDT UA Color YELLOW. 12/11/2022 22:25 EDT UA Appear CLEAR. 12/11/2022 22:25 EDT UA Glucose 1+ 12/11/2022 22:25 EDT UA Bili 1+ 12/11/2022 22:25 EDT UA Ketones NEGATIVE 12/11/2022 22:25 EDT UA Spec Grav >=1.030 12/11/2022 22:25 EDT UA Blood NEGATIVE 12/11/2022 22:25 EDT UA pH 5.5 12/11/2022 22:25 EDT UA Protein 1+ 12/11/2022 22:25 EDT UA Urobilinogen 0.2 Uro 12/11/2022 22:25 EDT UA Nitrite NEGATIVE 12/11/2022 22:25 EDT UA Leuk Est NEGATIVE 12/11/2022 22:25 EDT UA Culture Ind?. Indicated 12/11/2022 22:25 EDT UA WBC 3-5 12/11/2022 22:25 EDT UA RBC 0-2 12/11/2022 22:25 EDT UA Squam Epithelial Moderate 12/11/2022 22:25 EDT UA Mucous Few 12/11/2022 22:25 EDT UA Bacteria Rare 12/11/2022 22:25 EDT UA Hyal Cast Rare 12/11/2022 22:25 EDT UA Ca Ox Crystal Moderate 12/11/2022 22:25 EDT Patient/Lacquer Polisher Signature Patient Name:CRYSTAL BARRIENTOS I have received this information and my questions have been answered. Patient/Lacquer Polisher Name: Patient/Lacquer Polisher Signature: Relationship to Patient: Witness Name/Signature: Date: Electronically Signed on: 12/12/2022 00:34 EDTSigned by:Bam Horne MD: PERFORM Event Display: ED Discharge Information Authored Date: [id number] CRYSTAL BARRIENTOS :1945 Age:77 years Sex:Female Visit Date:12/11/2022 Primary Care Physician: Tang Feliciano MD Discharge Instructions We would like to thank you for allowing us to assist you with your healthcare needs. The following includes patient education materials and information regarding your injury/illness. Diagnosis from Today's Visit Weakness Discharge Vitals Temperature??(Temporal Artery) 98.6 ??F (37 ??C) Heart Rate??(Monitored) 91 Respiratory Rate?? 19 Blood Pressure?? 116/57?? Height?? 61.81 in (157.000 cm) Weight??(Estimated) 141.12 lb (64.00 kg) Allergies linagliptin??(Head pain) metFORMIN??(Diarrhoea) BEE VENOM PROTEIN (HONEY BEE) ibuprofen??(Urticaria) What to Do Next Instructions from Your Care Team Today you are seen in the emergency department for your high heart rate??and weakness. ??We did a thorough exam??with no obvious etiology found.?? We did send a tick test??and we will call you with apositive result.?? In the meantime we will send with a prescription for doxycycline for presumed Lyme disease. ??Please follow closely with your primary care physician and return to the emergency department for any new or worsening symptoms. You Need to Schedule the Following Appointments Follow Up with??[facility], Tang Alves MD When:??Within 5 to 7 days Where: [address] [place] [phone] Upcoming Scheduled Appointments Thursday 10:00 AM EDT ?? Where: [facility] Cardiology Status: Confirmed Thursday 1:40 PM EDT ?? With: Davie Petersen MD Where: [facility] [address] [place] [phone] Status: Confirmed You were treated today on an emergency [...] Emergency Department. Medications What How Much When Why Instructions Next Dose Unchanged aspirin 81 Milligrams Every day Unchanged clopidogrel (Plavix 75 mg oral tablet) 1 tab Oral (given by mouth) Every day CAD (coronary artery disease) Unchanged metoprolol (metoprolol succinate) 25 Milligrams Every day Unchanged sertraline Education Materials Weakness Weakness is a lack of strength. You may feel weak all over your body (generalized), or you may feelweak in one part of your body (focal). There are many potential causes of weakness. Sometimes, the cause of your weakness may not be known. Some causes of weakness can be serious, so it is important to see your doctor. Follow these instructions at home: Activity ? Rest as needed. ? Try to get enough sleep. Most adults need 7???8 hours of sleep each night. Talk to your doctor about how much sleep you need each night. ? Do exercises, such as arm curls and leg raises, for 30 minutes at least 2 days a week or as told byyour doctor. ? Think about working with a physical therapist or color strainer to help you get stronger. General instructions ? Take aedx-hzt-uprvacy and prescription medicines only as told by your doctor. ? Eat a healthy, well-balanced diet. This includes: ? Proteins to build muscles, such as lean meats and fish. ? Fresh fruits and vegetables. ? Carbohydrates to boost energy, such as whole grains. ? Drink enough fluid to keep your pee (urine) pale yellow. ? Keep all follow-up visits as told by your doctor. This is important. Contact a doctor if: ? Your weakness does not get better or it gets worse. ? Your weakness affects your ability to: ? Think clearly. ? Do your normal daily activities. Get help right away if you: ? Have sudden weakness on one side of your face or body. ? Have chest pain. ? Have trouble breathing or shortness of breath. ? Have problems with your vision. ? Have trouble talking or swallowing. ? Have trouble standing or walking. ? Are light-headed. ? Pass out (lose consciousness). Summary ? Weakness is a lack of strength. You may feel weak all over your body or just in one part of your body. ? There are many potential causes of weakness. Sometimes, the cause of your weakness may not be known. ? Rest as needed, and try to get enough sleep. Most adults need 7???8 hours of sleep each night. ? Eat a healthy, well-balanced diet. This information is not intended to replace advice given to you by your health care provider. Make sure you discuss any questions you have with your health care provider. Document Revised: 02/23/2019 Document Reviewed: 02/23/2019 [employer] Patient Education ?? 2021 [employer] Tests Performed Medications and Immunizations Administered Given Tylenol, 1000 mg, Oral Lab Test Name Test Result Date/Time WBC 5.5 x10^3/mcL 12/11/2022 21:06 EDT RBC 4.7 x10^6/mcL 12/11/2022 21:06 EDT Hgb 14.5 g/dL 12/11/2022 21:06 EDT Hct 41.6 % 12/11/2022 21:06 EDT MCV 88.7 fL 12/11/2022 21:06 EDT MCH 30.9 pg 12/11/2022 21:06 EDT MCHC 34.9 g/dL 12/11/2022 21:06 EDT RDW-CV 13.5 % 12/11/2022 21:06 EDT Platelets 137 x10^3/mcL 12/11/2022 21:06 EDT Neutro Auto 51.5 % 12/11/2022 21:06 EDT Lymph Auto 37.0 % 12/11/2022 21:06 EDT [place] Auto 8.1 % 12/11/2022 21:06 EDT Eos, Auto 2.7 % 12/11/2022 21:06 EDT Basophil Auto 0.5 % 12/11/2022 21:06 EDT Imm Gran Auto 0.2 % 12/11/2022 21:06 EDT Neutro Absolute 2.8 x10^3/mcL 12/11/2022 21:06 EDT Sodium Level 140 mmol/L 12/11/2022 21:06 EDT Potassium Level 3.2 mmol/L 12/11/2022 21:06 EDT Chloride Level 102 mmol/L 12/11/2022 21:06 EDT CO2 29 mmol/L 12/11/2022 21:06 EDT Alk Phos 85 unit/L 12/11/2022 21:06 EDT AST 20 unit/L 12/11/2022 21:06 EDT ALT 30 unit/L 12/11/2022 21:06 EDT BUN 11 mg/dL 12/11/2022 21:06 EDT Glucose Level 261 mg/dL 12/11/2022 21:06 EDT Creatinine Level 1.19 mg/dL 12/11/2022 21:06 EDT eGFR AA 47 12/11/2022 21:06 EDT eGFR Non-AA 47 12/11/2022 21:06 EDT Calcium Level 9.3 mg/dL 12/11/2022 21:06 EDT Protein Total 7.1 g/dL 12/11/2022 21:06 EDT Albumin Level 3.6 g/dL 12/11/2022 21:06 EDT Bilirubin Total 0.7 mg/dL 12/11/2022 21:06 EDT Lactic Acid Lvl 1.6 mmol/L 12/11/2022 21:15 EDT Lipase Level 31 unit/L 12/11/2022 21:06 EDT Magnesium Level 1.8 mg/dL 12/11/2022 21:06 EDT CRP High Sens 4.81 mg/L 12/11/2022 21:06 EDT Troponin-I 11.0 pg/mL 12/11/2022 23:00 EDT T4 Free 1.01 ng/dL 12/11/2022 21:06 EDT TSH 2.048 mcIntlUnit/mL 12/11/2022 21:06 EDT UA Color YELLOW. 12/11/2022 22:25 EDT UA Appear CLEAR. 12/11/2022 22:25 EDT UA Glucose 1+ 12/11/2022 22:25 EDT UA Bili 1+ 12/11/2022 22:25 EDT UA Ketones NEGATIVE 12/11/2022 22:25 EDT UA Spec Grav >=1.030 12/11/2022 22:25 EDT UA Blood NEGATIVE 12/11/2022 22:25 EDT UA pH 5.5 12/11/2022 22:25 EDT UA Protein 1+ 12/11/2022 22:25 EDT UA Urobilinogen 0.2 Uro 12/11/2022 22:25 EDT UA Nitrite NEGATIVE 12/11/2022 22:25 EDT UA Leuk Est NEGATIVE 12/11/2022 22:25 EDT UA Culture Ind?. Indicated 12/11/2022 22:25 EDT UA WBC 3-5 12/11/2022 22:25 EDT UA RBC 0-2 12/11/2022 22:25 EDT UA Squam Epithelial Moderate 12/11/2022 22:25 EDT UA Mucous Few 12/11/2022 22:25 EDT UA Bacteria Rare 12/11/2022 22:25 EDT UA Hyal Cast Rare 12/11/2022 22:25 EDT UA Ca Ox Crystal Moderate 12/11/2022 22:25 EDT Patient/Lacquer Polisher Signature Patient Name:CRYSTAL BARRIENTOS I have received this information and my questions have been answered. Patient/Lacquer Polisher Name: Patient/Lacquer Polisher Signature: Relationship to Patient: Witness Name/Signature: Date: Electronically Signed on: 12/12/2022 00:16 EDTSigned by:AAQ Discharge summary * Stephanie Ho: PERFORM Event Display: Discharge Note Authored Date: * Stephanie Ho: PERFORM Event Display: Discharge Note Authored Date: Diagnosis: 1. Weakness Comment: Diagnosis: Tachycardia Comment: Electronically Signed on 12/12/22 06:09 AM Stephanie Ho Patient Care team information Care Team Personnel Name: [facility], Tang Long MD Position: Physician Member Role: Primary Care Physician Address: Address: [address] [place] [id number] [place] Name: Nicola Madden RN Position: Nurse Member Role: Registered Nurse Name: Bam Johnson MD Position: Physician Member Role: Attending Physician Address: Address: [address] [place] [id number] Care Team Related Persons Name: DENNIS FRAGA Address: Home
--- OUTSIDE RECORDS SUMMARY | 2024-05-02 14:21 | XMS_ITS | Continuity of Care Document ---
Author Organization [facility] Address [address] [place] [address] Care Team Providers Care Women Designer Name Role Phone Anuradha LEMUSTang Primary Care Physician Encounter [facility] Date(s): 11/13/22 - 11/13/22 [facility] [address] [place] [address] Discharge Disposition: Home Allergies, Adverse Reactions, Alerts [...] Daily, # 30 tab, 12 Refill(s), Pharmacy: [id number], 160, cm, 10/22/22 15:28:00 [...] Member Role: Primary Care Physician Address: Address: [address] [place] [id number] Care Team Related Persons Name: DENNIS FRAGA Address: Home
--- OUTSIDE RECORDS SUMMARY | 2024-05-02 14:22 | XMS_ITS | Continuity of Care Document ---
Author Organization [facility] Address [address] [place] [address] Care Team Providers Care Longshore Equipment Operator Name Role Phone [facility], Tang Alves Primary Care Physician Encounter [facility] [id number] Date(s): 05/04/23 - 05/04/23 [facility] [address] [place] [address] Encounter Diagnosis Chest pain(Discharge Diagnosis) - 05/04/23 Discharge Disposition: Home or Self Care Attending Physician: Faustina Andrews MEDICAL VOUCHER CLERK Allergies, Adverse Reactions, Alerts Substance Reaction Severity Status BEE VENOM PROTEIN (HONEY BEE) Unknown Active ibuprofen Urticaria Unknown Active metFORMIN Diarrhoea Moderate Active linagliptin Head pain Moderate Active Assessment and Plan Future Appointments Future Scheduled Tests Radiology* NM Myocardial SPECT Drug Stress Multi 05/04/23 * NM Myocardial SPECT Drug Stress Multi 11/13/22 [...] Daily, # 30 tab, 12 Refill(s), Pharmacy: [facility] [id number], 157, cm, 04/28/23 13:43:00 [...] Range]: 1 Peripheral Pulse Rate [60-100 bpm] 88 bp m (05/04/23 1:22 PM) Blood Pressure [90-140/60-90 mmHg] 160/9 2mmHg *HI* (05/04/23 1:22 PM) Weight 62.05 kg (05/04/23 1:22 PM) Weight Measured (lbs) 136.797 lb (05/04/23 1:22 PM) Social History Social History Type Response Tobacco Never tobacco user T obacco Use:. Sex Female Physician Outpatient Note * Faustina Andrews MEDICAL VOUCHER CLERK: PERFORM Event Display: Office Clinic Note Physician Authored Date: [id number] CRYSTAL BARRIENTOS :1945 Age:77 years Sex:Female Visit Date:05/04/2023 Primary Care Physician: Anuradha [facility], Tang Alves MD History of Present Illness Cardiac Problems: 1.Chest pain 2.?? Hypertension 3.?? Coronary artery disease-status post PCI to LAD 2018 at -,??metoprolol 50 mg, aspirin 81 mg, Plavix 75 mg,??rosuvastatin 40 mg 4.?? Hyperlipidemia 5.?? Diabetes mellitus 6.Palpitations 7. Pulmonary Embolism 8.DVT ? This is a 77-year-old female that was last seen by Dr. Petersen in the office on??November 13, 2022??after her emergency department??visit in June??for an evaluation where she noted palpitations.?She had had a reassuring Holter at this part.?? She is having recurrent chest pain??for the past month prior to this appointment, described as an 8 of 10 squeezing in the left side of her chest??that causes shortness of breath and nausea, occasional radiation down her left arm or to the back.?? She does have a history of a??PCI to??the LAD in 2018 at [facility].?? She was started on Plavix 75 mg??for cardioprotection during the work-up and??an echocardiogram and a Lexiscan??nuclear stress test was ordered.?? It was felt that the palpitations had been worked up??and no changes were done at this point.?? She was recently admitted??for??chest pain??in the setting of known coronary artery disease??with nausea and shortness of breath.?? She had a positive D-dimer of 2.[address] of the chest was negative for any acute process or pulmonary emboli. ??She had negative troponins??and her EKG was negative for any acute changes. ??An echo and stress test were ordered,??she was unable to reach 85% of her max potential heart rate for the??stress echo, so a Lexiscan has been ordered. Echo showed EF 65% with normal wall motion.?? No AAS.?? Mild to moderate AI.?? No significant mitral valve disease.?? Pulmonary artery pressures could not be obtained due to inadequate TR jet ambulated 4 minutes, 80% of MPHR achieved.?? Nondiagnostic ETT due to inability to achieve 85% MPHR.?? No evidence of ischemia at submaximal heart rate recommend Lexiscan nuclear stress test.?? Associated echo images were reassuring. She is maintained on metoprolol 50 mg, aspirin 81 mg, Plavix 75 mg,??rosuvastatin 40 mg. She is here with her daughter Ladonna today. ??She states that she is doing a little bit better??fromher recent hospital stay, she is still lightheaded and weak.?? She states that she did feel a few skips in her??heartbeat at the hospital that she has never felt before, but she has not felt that since.?? She denies chest pain.?? She states that her breathing is not too bad while sitting, but if she has to walk??for any distance she is short of breath, this has been her normal for years??she states.?? She did pass out last June, she was in the shower. ??She states she had no symptoms prior to passing out.?? She does state that when she gets lightheaded??currently she will need to sit down. ??She was walking??into the office from the elevator and got lightheaded, and she sat down for much better.?? She states that she occasionally will have swelling on bilateral lower extremities, thiscan get??painful due to her diabetes but is not??frequently painful.?? They do reduce when she elevates her feet??at night. ?? She is currently??not exercising, she states she gets lightheaded every time she walks. ??A long walk for her was from the elevator into the office. ?? She will occasionally take her blood pressure at home, but she states that she has been to watching her blood pressure on her watch.?? On her watch it is averaging 130/85. Review of Systems A complete review of systems is negative other than as noted in the history of present illness. Physical Exam Vitals & Measurements HR:??88??(Peripheral)?? BP:??160/92?? SpO2:??98%?? WT:??62.05??kg?? HEENT: Normocephalic, atraumatic Respirations: Clear to auscultation [...] ischemia. 04/28/2023:EKG: SR at 84 bpm, no RI segment depressions, no new ST segment changes, new LBBB, or T-wave changes that would suggest acute ischemia. 04/28/2023:??CTA??of the chest. ??No evidence of pulmonary embolus to the segmental level no aneurysms of the aorta, no dissection of the aorta. 04/28/2023. ??ER:??Left-sided chest pain going on for 2 days.?? Constant, with nausea??and some shortness of breath.?? EKG was negative for any acute changes, troponins have been negative.?? Patient positive with a [...] still has normal troponin??levels 05/04/2023: EKG: Sinus rhytm at 82bpm. ?? 77-year-old female with CAD and chest pain ? Coronary artery disease:??She is currently on a cardioprotective medication regimen, this includes Plavix 75 mg since her recent hospital stay.?? She is currently??not experiencing chest pain, but she is??experiencing??dyspnea on exertion??every time she is walking,??in addition to lightheadedness and dizziness.?? She had a reassuring echocardiogram??but an inconclusive??treadmill stress test??due to the inability to achieve 85% MPHR.?? There was no evidence of ischemia at submaximal heart ratebut the??was recommended that a Lexiscan nuclear stress test be performed??to rule out??ischemia. ??This was not ordered nor was it completed. ??I am ordering a Lexiscan stress test??today.?? I will s ee her in 3 months to go over these results. ?? She understands to call with any questions or concerns. ??I instructed her to be seen in the ER for any continuing??symptoms.?? It was a pleasure to meet Crystal and her daughter Ladonna. Clinic Assessment/Plan Chest pain??R07.9 Actions: COMPLETED - 87132 Office/Outpatient Visit - Established Patient, Level 4 (30-39 min)., 05/04/23 13:18:00 EDT, Chest pain INPROCESS - CV ECG Clinic, 05/04/23 13:21:00 EDT, Routine, Reason: Other (please specify), Stop date and time 05/04/23 13:21:00 EDT, Chest pain, ORD_SET_REQ_DT_RANGE, Mehdi's Internal Person Id FUTURE - Follow-Up Appointment Request KAURY, *Est. 08/04/23 +/- 21 days, Future Order, In [facility], [facility] FUTURE - NM Myocardial SPECT Drug Stress Multi, 05/04/23, Routine, Reason: Chest pain, Dyspnea, Transport Mode: Ambulatory, Chest pain Dyspnea, Exam to be performed outside organization? ?? Problem List/Past Medical History Ongoing CAD (coronary artery disease) Chest pain, rule out acute myocardial infarction Historical No qualifying data Medications What How Much When Why Instructions Unchanged albuterol (ProAir HFA 90 mcg/ inh [...] tab Oral (given by mouth) Every day Allergies linagliptin??(Head pain) metFORMIN??(Diarrhoea) BEE VENOM PROTEIN (HONEY BEE) ibuprofen??(Urticaria) Social History Alcohol Never Electronic Cigarette/Vaping Electronic Cigarette Use: Never. Substance Use Never Tobacco Never tobacco user Tobacco Use:. Immunizations Vaccine Date Status influenza virus vaccine, inactivated 05/05/2011 Recorded influenza virus vaccine, inactivated 05/28/2010 Recorded Electronically Signed on 05/04/23 01:57 PM Faustina Andrews MEDICAL VOUCHER CLERK Patient Care team information Care Team Personnel Name: Tang Wesis MD Position: No Access Member Role: Primary Care Physician Address: Address: [id number] [place] [address] Care Team Related Persons Name: LADONNA FRAGA
--- OUTSIDE RECORDS SUMMARY | 2024-05-02 14:22 | XMS_ITS | Continuity of Care Document ---
Author Organization [facility] Address [address] [place] [address] Care Team Providers Care Property Analyst Name Role Phone Anuradha [facility] Primary Care Physician Encounter [facility] Date(s): 06/11/22 - 06/11/[address] [address] Encounter Diagnosis Fall at home(Discharge Diagnosis) - 06/11/[address] in unspecified non-institutional (private) residence as the place of occurrence of the external cause(Discharge Diagnosis) - 06/11/22 Right shoulder pain(Discharge Diagnosis) - 06/11/22 Discharge Disposition: Home or Self Care Attending Physician: Nii Bob MD Admitting Physician: Nii Bob MD Allergies, Adverse Reactions, Alerts Substance Reaction Severity Status BEE VENOM PROTEIN (HONEY BEE) Unknown Active ibuprofen Urticaria Unknown Active metFORMIN Diarrhoea Moderate Active linagliptin Head pain Moderate Active Immunizations Given and Recorded Vaccine Date Status Refusal Reason influenza virus vaccine, inactivated 05/05/11 Tim rded influenza virus vaccine, inactivated 05/28/10 Tim rded Medications aspirin 81 mg =, Daily, 0 Refill(s) Start Date: 02/15/22 Status: Ordered metoprolol succinate 25 mg =, Daily, 0 Refill(s) Start Date: 02/15/22 Status: Ordered sertraline 0 Refill(s) Start Date: 02/15/22 Status: Ordered Results Laboratory List Name Date Urinalysis with Micro if Indicated and C ulture if Indicated 06/11/22 CBC w/ Diff 06/11/22 Comprehensive Metabolic Panel 06/11/22 Troponin-I 06/11/22 Automated Diff 06/11/22 Most recent to oldest [Reference Range]: 1 WBC [5.0-10.0 x10^3/mcL] 6.4 x10^3/mcL (06/11/22 2:43 PM) RBC [4.1-5.3 x10^6/mcL] 4.5 x10^6/mcL (06/11/22 2:43 PM) Neutro Auto [40.0-75.0 %] 71.6 % (06/11/22 2:43 PM) Lymph Auto [20.0-50.0 %] 18.4 % *LOW* (06/11/22 2:43 PM) [place] Auto [2.0-15.0 %] 7.2 % (06/11/22 2:43 PM) Basophil Auto [0.0-1.0 %] 0.6 % (06/11/22 2:43 PM) BUN [7-18 mg/dL] 15 mg/dL (06/11/22 2:42 PM) UA Color Yellow (06/11/22 3:35 PM) Glucose Level [74-106 mg/dL] 216 mg/dL *HI* (06/11/22 2:42 PM) Potassium Level [3.5-5.1 mmol/L] 4.0 mmo l/L (06/11/22 2:42 PM) MCV [80.0-96.0] 89.5 (06/11/22 2:43 PM) UA Urobilinogen Normal (06/11/22 3:35 PM) UA Bili [Negative] Negative (06/11/22 3:35 PM) UA Ketones Negative (06/11/22 3:35 PM) AST [15-37 unit/L] 18 unit/L (06/11/22 2:42 PM) ALT [14-59 unit/L] 23 unit/L (06/11/22 2:42 PM) MCHC [31.0-35.0 g/dL] 35.1 g/dL *HI* (06/11/22 2:43 PM) Troponin-I [0.0-51.4 pg/mL] <5.0 pg/mL (06/11/22 2:42 PM) Sodium Level [136-145 mmol/L] 137 mmol/L (06/11/22 2:42 PM) UA Leuk Est Negative (06/11/22 3:35 PM) UA Nitrite Negative (06/11/22 3:35 PM) UA Glucose [Negative] 3+ *ABN* (06/11/22 3:35 PM) Hct [37.0-47.0 %] 39.9 % (06/11/22 2:43 PM) Calcium Level [8.5-10.1 mg/dL] 9.1 mg/dL (06/11/22 2:42 PM) Albumin Level [3.4-5.0 g/dL] 3.5 g/dL (06/11/22 2:42 PM) Protein Total [6.4-8.2 g/dL] 6.8 g/dL (06/11/22 2:42 PM) UA Protein Negative (06/11/22 3:35 PM) MCH [26.0-32.0 pg] 31.4 pg (06/11/22 2:43 PM) Neutro Absolute 4.6 x10^3/mcL *NA* (06/11/22 2:43 PM) Bilirubin Total [0.2-1.0 mg/dL] 0.4 mg/d L (06/11/22 2:42 PM) Hgb [12.0-16.0 g/dL] 14.0 g/dL (06/11/22 2:43 PM) Alk Phos [46-146 unit/L] 72 unit/L (06/11/22 2:42 PM) UA Blood Negative (06/11/22 3:35 PM) UA Spec Grav 1.015 *NA* (06/11/22 3:35 PM) Platelets [130-450 x10^3/mcL] 166 x10^3/ mcL (06/11/22 2:43 PM) CO2 [21-32 mmol/L] 29 mmol/L (06/11/22 2:42 PM) UA pH 5.5 *NA* (06/11/22 3:35 PM) eGFR Non-AA [>=60] 45 *LOW* (06/11/22 2:42 PM) eGFR AA [>=60] 45 *LOW* (06/11/22 2:42 PM) UA Appear Clear (06/11/22 3:35 PM) Chloride Level [98-107 mmol/L] 101 mmol/ L (06/11/22 2:42 PM) RDW-CV [11.7-17.0 %] 13.5 % (06/11/22 2:43 PM) Imm Gran Auto [0.0-0.9 %] 0.3 % (06/11/22 2:43 PM) Creatinine Level [0.55-1.02 mg/dL] 1.24 mg/dL *HI* (06/11/22 2:42 PM) Eos, Auto [1.0-6.0 %] 1.9 % (06/11/22 2:43 PM) Vital Signs Most recent to oldest [Reference Range]: 1 Temperature Temporal Artery [36-38 Deg C ] 35.7 Deg C *LOW* (06/11/22 2:07 PM) Peripheral Pulse Rate [60-100 bpm] 56 bp m *LOW* (06/11/22 2:07 PM) Respiratory Rate [12-24 br/min] 16 br/mi n (06/11/22 2:07 PM) Blood Pressure [90-140/60-90 mmHg] 139/6 3mmHg (06/11/22 2:07 PM) Weight Dosing 63.05 kg (06/11/22 2:30 PM) Weight Estimated 63.05 kg (06/11/22 2:07 PM) Height/Length Dosing 157.480 cm (06/11/22 2:30 PM) Height/Length Estimated 157.480 cm (06/11/22 2:07 PM) Social History Social History Type Response Tobacco Never tobacco user T obacco Use:. Sex Female Hospital Discharge Instructions Patient Education 06/11/2022 14:59:43 Shoulder Pain Shoulder Pain Many things can cause shoulder pain, including: ??? An injury to the shoulder. ??? Overuse of the shoulder. ??? Arthritis. The source of the pain can be: ??? Inflammation. ??? An injury to the shoulder joint. ??? An injury to a tendon, ligament, or bone. Follow these instructions at home: Pay attention to changes in your symptoms. Let your health care provider know about them. Follow these instructions to relieve your pain. If you have a sling: ??? Wear the sling as told by your health care provider. Remove it only as told by your health careprovider. ??? Loosen the sling if your fingers tingle, become numb, or turn cold and blue. ??? Keep the sling clean. ??? If the sling is not waterproof: ??? Do not let it get wet. Remove it to shower or bathe. ??? Move your arm as little as possible, but keep your hand moving to prevent swelling. Managing pain, stiffness, and swelling ??? If directed, put ice on the painful area: ??? Put ice in a plastic bag. ??? Place a towel between your skin and the bag. ??? Leave the ice on for 20 minutes, 2???3 times per day. Stop applying ice if it does not help with the pain. ??? Squeeze a soft ball or a foam pad as much as possible. This helps to keep the shoulder from swelling. It also helps to strengthen the arm. General instructions ??? Take [id number] and prescription medicines only as told by your health care provider. ??? Keep all follow-up visits as told by your health care provider. This is important. Contact a health care provider if: ??? Your pain gets worse. ??? Your pain is not relieved with medicines. ??? New pain develops in your arm, hand, or fingers. Get help right away if: ??? Your arm, hand, or fingers: ??? Tingle. ??? Become numb. ??? Become swollen. ??? Become painful. ??? Turn white or blue. Summary ??? Shoulder pain can be caused by an injury, overuse, or arthritis. ??? Pay attention to changes in your symptoms. Let your health care provider know about them. ??? This condition may be treated with a sling, ice, and pain medicines. ??? Contact your health care provider if the pain gets worse or new pain develops. Get help right away if your arm, hand, or fingers tingle or become numb, swollen, or painful. ??? Keep all follow-up visits as told by your health care provider. This is important. This information is not intended to replace advice given to you by your health care provider. Make sure you discuss any questions you have with your health care provider. Document Revised: 02/01/2019 Document Reviewed: 02/01/2019 Elsevier Patient Education ?? 2021 [employer] Follow Up Care 06/11/2022 14:07:35 With:Tang Feliciano MD Address: [address] [address]- When:2 to 4 days Physician Emergency department Note * Nii Bob MD: PERFORM Event Display: ED Note Physician Authored Date: [id number] CRYSTAL BARRIENTOS :1945 Age:76 years Sex:Female Visit Date:06/11/2022 Primary Care Physician: Tang Feliciano MD Basic Information Time Seen: Nii Bob MD / 06/11/2022 14:08 Chief Complaint Pt staes she fell getting out of the bath tub at 1pm. ??Pt c/o pain to her right shoulder, right foot, and hit the back of her head. ??? LOC History Of Present Illness: This is a pleasant 76-year-old lady who presents today for evaluation of right elbow and shoulder pain after sustaining a fall in the shower.?? She notes that she has ongoing/chronic problems with dizziness??and??usually has her family stay with her whenever she is taking a shower.?? She was showering today when she felt lightheaded/dizzy and then did fall??through the curtain, striking the back of her head on the ground. ??She is not sure if she lost consciousness after the fall or not.?? She does not explicitly recall??but denies any??chest pain, shortness of breath, palpitations, abdominalpain, nausea, vomiting, severe headache preceding the fall, numbness, tingling, weakness. ??At present, she complains of some right elbow and shoulder pain where she landed on the ground??as well as the pain in the back of her head. ??She takes a baby aspirin daily but is not on any anticoagulation.?? She is having a Holter monitor placed today??as she is been having some intermittent palpitations. ??Denies any palpitations preceding event today. ?? Location:??Right arm and shoulder Quality:??Throbbing Severity:??Moderate Duration:??About an hour Timing:??Constant Review of Systems: 10 point review of systems conducted and is negative except as noted in the HPI Physical Exam Vitals & Measurements T:??35.7?C ??(Temporal Artery)?? HR:??56??(Peripheral)?? RR:??16?? BP:??139/63?? SpO2:??96%?? HT:??157.480??cm?? WT:??63.05??kg??(Estimated)?? Pain Score:??10?? O2 Therapy:??Room air?? CONSTITUTIONAL: _well appearing in no acute distress SKIN: _Warm, dry, and intact without rash EYES: _extraocular movements are grossly intact, clear conjunctiva HENT: _Normocephalic, some mild redness is noted to the occipital scalp without significant hematoma, there is some tenderness without associated depression/deformity,, moist mucus membranes NECK: _no obvious swelling, normal range of motion??endorses mild midline tenderness to palpation PULMONARY: _normal chest rise and fall, lungs are clear bilaterally,??no respiratory distress or stridor CARDIOVASCULAR: _regular rate, regular rhythm,??distal extremities are warm and well perfused GASTROINTESTINAL: _nondistended, non-tender GENITOURINARY: _deferred NEUROLOGIC: _normal speech, moves all extremities MUSCULOSKELETAL: _no gross deformities, right arm???skin is intact and in good condition, there aresome mild tenderness about the lateral aspect of the right shoulder as well as over the olecranon. ??There is no focal bony tenderness in the forearm, humerus, wrist. ??Median, radial, ulnar nerves are intact in the motor and sensory distributions in the hand PSYCHIATRIC: _normal mood and affect Medical Decision Making: Very pleasant 76 really presenting today for evaluation of right shoulder/arm pain after a fall.?? EKG here shows sinus rhythm without obvious predisposition to dysrhythmia.?? She and her parents would like syncope as noted in HPI. ??She does have a set of her Holter monitor today which I think is r easonable??especially since she had noted some??skipped beats recently. ??He??again denies any preceding palpitations or subjective tachycardia prior to today's episode.?? We will plan to check labs to screen for potential electrolyte or metabolic derangement??as well as CT head and C-spine to exclude posttraumatic sequelae such as intracranial hemorrhage, skull fracture,??cervical fracture/dislocation Procedure No Qualifying Data Reexamination/Reevaluation Labs reviewed???no significant leukocytosis or anemia. ??Renal function mildly elevated with creatinine 1.2 today, electrolytes are otherwise generally noncontributory. ??Troponin is negative. ??X-rays of elbow, forearm, shoulder negative for acute pathology, CT head and C-spine are likewise negative for acute pathology. ??Spanish syncope score is -1. ?? Patient has had??Holter monitor placed here in the emergency department and is feeling well. ??She like to go home this afternoon??which I think is reasonable. ??Reviewed customary return precautions to the emergency department she verbalized good understanding agreement. Assessment/Plan 1.??Fall at home??W19.XXXA Ordered: Discharge Patient, 06/11/22 16:01:00 EST, Home Independently, Constant Indicator ?? 2.??Right shoulder pain??M25.511 Ordered: Discharge Patient, 06/11/22 16:01:00 EST, Home Independently, Constant Indicator ?? Unspecified place in unspecified non-institutional (private) residence as the place of occurrence of the external cause??Y92.009 ?? Patient Education Shoulder Pain Follow Up With When Contact Information [facility], Tang Alves MD Within 2 to [address] [address]- Additional Instructions: Medication Reconciliation Unchanged [id number] Milligrams every day. ?? metoprolol (metoprolol succinate)25 Milligrams every day. ?? sertraline Problem List/Past Medical History Ongoing No qualifying data Historical No qualifying data Medication Administration Given acetaminophen, 1000 mg, Oral Allergies linagliptin??(Head pain) metFORMIN??(Diarrhoea) BEE VENOM PROTEIN (HONEY BEE) ibuprofen??(Urticaria) Social History Alcohol Never Electronic Cigarette/Vaping Electronic Cigarette Use: Never. Substance Use Never Tobacco Never tobacco user Tobacco Use:. Diagnostic Results ECG Sinus rhythm with a rate of 50,??normal axis, VA is appropriate 197 ms, QRS is not wide 89 ms, QTC is not prolonged at 447 seconds.?? No evidence of AV block, long or short QT, Brugada morphologies, acute ischemia, WPW, hypertrophy, ARVD. Lab Results CBC and Differential?? LATEST RESULTS?? HISTORICAL RESULTS?? WBC?? 06/11/22 14:43?? 6.4?? 05/27/22?? 7.7?? RBC?? 06/11/22 14:43?? 4.5?? 05/27/22?? 4.3?? Hgb?? 06/11/22 14:43?? 14.0?? 05/27/22?? 13.4?? Hct?? 06/11/22 14:43?? 39.9?? 05/27/22?? 37.5?? MCV?? 06/11/22 14:43?? 89.5?? 05/27/22?? 87.0?? MCH?? 06/11/22 14:43?? 31.4?? 05/27/22?? 31.1?? MCHC?? 06/11/22 14:43?? 35.1 ??High?? 05/27/22?? 35.7 ??High?? RDW-CV?? 06/11/22 14:43?? 13.5?? 05/27/22?? 13.2?? Platelets?? 06/11/22 14:43?? 166?? 05/27/22?? 156?? Neutro Auto?? 06/11/22 14:43?? 71.6?? 05/27/22?? 72.4?? Lymph Auto?? 06/11/22 14:43?? 18.4 ??Low?? 05/27/22?? 19.7 ??Low?? [place] Auto?? 06/11/22 14:43?? 7.2?? 05/27/22?? 5.9?? Eos, Auto?? 06/11/22 14:43?? 1.9?? 05/27/22?? 1.3?? Basophil Auto?? 06/11/22 14:43?? 0.6?? 05/27/22?? 0.4?? Imm Gran Auto?? 06/11/22 14:43?? 0.3?? 05/27/22?? 0.3?? Neutro Absolute?? 06/11/22 14:43?? 4.6?? 05/27/22?? 5.6? Routine Chemistry?? LATEST RESULTS?? HISTORICAL RESULTS?? Sodium Level?? 06/11/22 14:42?? 137?? 05/27/22?? 139?? Potassium Level?? 06/11/22 14:42?? 4.0?? 05/27/22?? 3.8?? Chloride Level?? 06/11/22 14:42?? 101?? 05/27/22?? 104?? CO2?? 06/11/22 14:42?? 29?? 05/27/22?? 26?? Alk Phos?? 06/11/22 14:42?? 72?? 02/15/22?? 76?? AST?? 06/11/22 14:42?? 18?? 02/15/22?? 12 ??Low?? ALT?? 06/11/22 14:42?? 23?? 02/15/22?? 17?? BUN?? 06/11/22 14:42?? 15?? 05/27/22?? 15?? Glucose Level?? 06/11/22 14:42?? 216 ??High?? 05/27/22?? 191 ??High?? Creatinine Level?? 06/11/22 14:42?? 1.24 ??High?? 05/27/22?? 1.02?? eGFR AA?? 06/11/22 14:42?? 45 ??Low?? 05/27/22?? 57 ??Low?? eGFR Non-AA?? 06/11/22 14:42?? 45 ??Low?? 05/27/22?? 57 ??Low?? Calcium Level?? 06/11/22 14:42?? 9.1?? 05/27/22?? 8.8?? Protein Total?? 06/11/22 14:42?? 6.8?? 02/15/22?? 6.6?? Albumin Level?? 06/11/22 14:42?? 3.5?? 02/15/22?? 3.2 ??Low?? Bilirubin Total?? 06/11/22 14:42?? 0.4?? 02/15/22?? 0.4? Cardiac Isoenzymes?? LATEST RESULTS?? HISTORICAL RESULTS?? Troponin-I?? 06/11/22 14:42?? <5.0?? 05/27/22?? 6.0? UA Macroscopic?? LATEST RESULTS?? UA Color?? 06/11/22 15:35?? Yellow?? UA Appear?? 06/11/22 15:35?? Clear?? UA Glucose?? 06/11/22 15:35?? 3+ Abnormal?? UA Bili?? 06/11/22 15:35?? Negative?? UA Ketones?? 06/11/22 15:35?? Negative?? UA Spec Grav?? 06/11/22 15:35?? 1.015?? UA Blood?? 06/11/22 15:35?? Negative?? UA pH?? 06/11/22 15:35?? 5.5?? UA Protein?? 06/11/22 15:35?? Negative?? UA Urobilinogen?? 06/11/22 15:35?? Normal?? UA Nitrite?? 06/11/22 15:35?? Negative?? UA Leuk Est?? 06/11/22 15:35?? Negative? Electronically Signed on 06/11/22 04:08 PM Nii Bob MD Emergency department Discharge instructions * Nii Bob MD: PERFORM Event Display: ED Discharge Information Authored Date: [id number] CRYSTAL BARRIENTOS :1945 Age:76 years Sex:Female Visit Date:06/11/2022 Primary Care Physician: Tang Feliciano MD Discharge Instructions We would like to thank you for allowing us to assist you with your healthcare needs. The following includes patient education materials and information regarding your injury/illness. Diagnosis from Today's Visit Fall at home Right shoulder pain Unspecified place in unspecified non-institutional (private) residence as the place of occurrence of the external cause Discharge Vitals Temperature??(Temporal Artery) 96.3 ??F (35.7 ??C) Heart Rate??(Peripheral) 56 Respiratory Rate?? 16 Blood Pressure?? 139/63?? Height?? 62.00 in (157.480 cm) Weight??(Estimated) 139.03 lb (63.05 kg) Allergies linagliptin??(Head pain) metFORMIN??(Diarrhoea) BEE VENOM PROTEIN (HONEY BEE) ibuprofen??(Urticaria) What to Do Next Instructions from Your Care Team Thank you for coming to the emergency department today, it has been a pleasure to take care of you.??Thankfully the EKG (electrical picture in your heart)??in the emergency department??showed a normal pathway of electricity through your heart. ??We agree that having a Holter monitor??placed is a good neck step to evaluate the skipped beat/palpitations that you have been feeling.?? Your labs showed normal cell counts and electrolytes,??normal heart marker (troponin),??your creatinine??(a measure of your kidney function) was very mildly elevated at 1.2. ??Please??keep yourself well-hydrated and have this rechecked with your primary doctor within the next week or so.?? Please return to the emergency department if you have any new or concerning symptoms including??any episodes of passing out, severe headache, abdominal pain, chest pain or trouble breathing, any numbness, tingling, weakness, or if you have any other symptoms or concern you. You Need to Schedule the Following Appointments Follow Up with??Anuradha [facility], Tang Alves MD When:??Within 2 to 4 days Where: [address] [phone]- You were treated today on an emergency [...] What How Much When Instructions Next Dose Unchanged aspirin 81 Milligrams Every day Unchanged metoprolol (metoprolol succinate) 25 Milligrams Every day Unchanged sertraline Education Materials Shoulder Pain Many things can cause shoulder pain, including: ? An injury to the shoulder. ? Overuse of the shoulder. ? Arthritis. The source of the pain can be: ? Inflammation. ? An injury to the shoulder joint. ? An injury to a tendon, ligament, or bone. Follow these instructions at home: Pay attention to changes in your symptoms. Let your health care provider know about them. Follow these instructions to relieve your pain. If you have a sling: ? Wear the sling as told by your health care provider. Remove it only as told by your health care provider. ? Loosen the sling if your fingers tingle, become numb, or turn cold and blue. ? Keep the sling clean. ? If the sling is not waterproof: ? Do not let it get wet. Remove it to shower or bathe. ? Move your arm as little as possible, but keep your hand moving to prevent swelling. Managing pain, stiffness, and swelling ? If directed, put ice on the painful area: ? Put ice in a plastic bag. ? Place a towel between your skin and the bag. ? Leave the ice on for 20 minutes, 2???3 times per day. Stop applying ice if it does not help with the pain. ? Squeeze a soft ball or a foam pad as much as possible. This helps to keep the shoulder from swelling. It also helps to strengthen the arm. General instructions ? Take [id number]-xoksrgv and prescription medicines only as told by your health care provider. ? Keep all follow-up visits as told by your health care provider. This is important. Contact a health care provider if: ? Your pain gets worse. ? Your pain is not relieved with medicines. ? New pain develops in your arm, hand, or fingers. Get help right away if: ? Your arm, hand, or fingers: ? Tingle. ? Become numb. ? Become swollen. ? Become painful. ? Turn white or blue. Summary ? Shoulder pain can be caused by an injury, overuse, or arthritis. ? Pay attention to changes in your symptoms. Let your health care provider know about them. ? This condition may be treated with a sling, ice, and pain medicines. ? Contact your health care provider if the pain gets worse or new pain develops. Get help right away if your arm, hand, or fingers tingle or become numb, swollen, or painful. ? Keep all follow-up visits as told by your health care provider. This is important. This information is not intended to replace advice given to you by your health care provider. Make sure you discuss any questions you have with your health care provider. Document Revised: 02/01/2019 Document Reviewed: 02/01/2019 [employer] Patient Education ?? 2021 [employer] Tests Performed Medications and Immunizations Administered Given acetaminophen, 1000 mg, Oral Lab Test Name Test Result Date/Time WBC 6.4 x10^3/mcL 06/11/2022 14:43 EST RBC 4.5 x10^6/mcL 06/11/2022 14:43 EST Hgb 14.0 g/dL 06/11/2022 14:43 EST Hct 39.9 % 06/11/2022 14:43 EST MCV 89.5 06/11/2022 14:43 EST MCH 31.4 pg 06/11/2022 14:43 EST MCHC 35.1 g/dL 06/11/2022 14:43 EST RDW-CV 13.5 % 06/11/2022 14:43 EST Platelets 166 x10^3/mcL 06/11/2022 14:43 EST Neutro Auto 71.6 % 06/11/2022 14:43 EST Lymph Auto 18.4 % 06/11/2022 14:43 EST [place] Auto 7.2 % 06/11/2022 14:43 EST Eos, Auto 1.9 % 06/11/2022 14:43 EST Basophil Auto 0.6 % 06/11/2022 14:43 EST Imm Gran Auto 0.3 % 06/11/2022 14:43 EST Neutro Absolute 4.6 x10^3/mcL 06/11/2022 14:43 EST Sodium Level 137 mmol/L 06/11/2022 14:42 EST Potassium Level 4.0 mmol/L 06/11/2022 14:42 EST Chloride Level 101 mmol/L 06/11/2022 14:42 EST CO2 29 mmol/L 06/11/2022 14:42 EST Alk Phos 72 unit/L 06/11/2022 14:42 EST AST 18 unit/L 06/11/2022 14:42 EST ALT 23 unit/L 06/11/2022 14:42 EST BUN 15 mg/dL 06/11/2022 14:42 EST Glucose Level 216 mg/dL 06/11/2022 14:42 EST Creatinine Level 1.24 mg/dL 06/11/2022 14:42 EST eGFR AA 45 06/11/2022 14:42 EST eGFR Non-AA 45 06/11/2022 14:42 EST Calcium Level 9.1 mg/dL 06/11/2022 14:42 EST Protein Total 6.8 g/dL 06/11/2022 14:42 EST Albumin Level 3.5 g/dL 06/11/2022 14:42 EST Bilirubin Total 0.4 mg/dL 06/11/2022 14:42 EST Troponin-I <5.0 pg/mL 06/11/2022 14:42 EST UA Color YELLOW. 06/11/2022 15:35 EST UA Appear CLEAR. 06/11/2022 15:35 EST UA Glucose 3+ 06/11/2022 15:35 EST UA Bili NEGATIVE 06/11/2022 15:35 EST UA Ketones NEGATIVE 06/11/2022 15:35 EST UA Spec Grav 1.015 06/11/2022 15:35 EST UA Blood NEGATIVE 06/11/2022 15:35 EST UA pH 5.5 06/11/2022 15:35 EST UA Protein NEGATIVE 06/11/2022 15:35 EST UA Urobilinogen 0.2 Uro 06/11/2022 15:35 EST UA Nitrite NEGATIVE 06/11/2022 15:35 EST UA Leuk Est NEGATIVE 06/11/2022 15:35 EST Patient/Drop Forge Operator Signature Patient Name:CRYSTAL BARRIENTOS I have received this information and my questions have been answered. Patient/Drop Forge Operator Name: Patient/Drop Forge Operator Signature: Relationship to Patient: Witness Name/Signature: Date: Electronically Signed on: 06/11/2022 16:02 ESTSigned by:GOLDY Patient Care team information Care Team Personnel Name: Tang Feliciano MD Position: Physician Member Role: Primary Care Physician Address: Address: [address] [address] Name: Faby Chris Position: Nurse Member Role: ED Nurse Name: Nii Bob MD Position: Physician Member Role: Admitting Physician Address: Address: [address] [place] [address] [place] [address] [place] Care Team Related Persons Name: DENNIS FRAGA
--- OUTSIDE RECORDS SUMMARY | 2024-05-02 14:22 | XMS_ITS | Encounter Summary ---
Author Organization [facility] Address [address] [place] [address] Care Team Providers Care Ranch Hand Supervisor Name Role Phone Jamal Padilla MD Primary Care Provider [phone] Encounter Details Date Type Department Care Team (Latest Contact Info) Description 05/30/2019 14:32 EDT - 05/30/2019 23:59 EDT Hospital Encounter [address] [address] Unknown, Provider, Discharge Disposition: Home or Self Care Social History Tobacco Use Types Packs/Day Years Used Date Smoking Tobacco: Never Assessed Sex and Gender Information Value Date Recorded Sex Assigned at Not on file Gender Identity Not on file Sexual Orientation Not on file documented as of this encounter Discharge Disposition Disposition Code Departure Means Destination Home or Self Group Home documented in this encounter Plan of Treatment Not on file documented as of this encounter Visit Diagnoses Not on filedocumented in this encounter Care Teams Ranch Hand Supervisor Relationship Specialty Start Date End Date Jamal Padilla MD PCP - General 06/11/15 documented as of this encounter
--- OUTSIDE RECORDS SUMMARY | 2024-05-02 14:22 | XMS_ITS | Continuity of Care Document ---
Author Organization [facility] Address [address] [place] [address] Care Team Providers Care Technology Applications Teacher Name Role Phone [facility] Primary [facility] Physician Encounter [id number] Date(s): 11/14/22 - 11/14/22 [facility] [address] [place] [address] Encounter Diagnosis Foot pain(Discharge Diagnosis) - 11/14/22 Inflammation of metatarsophalangeal joint(Discharge Diagnosis) - 11/14/22 Discharge Disposition: Home or Self Care Attending Physician: Tamy Murray MD Admitting Physician: Tamy Murray MD Allergies, Adverse Reactions, Alerts Substance Reaction Severity Status BEE VENOM PROTEIN (HONEY BEE) Unknown Active ibuprofen Urticaria Unknown Active metFORMIN Diarrhoea Moderate Active linagliptin Head pain Moderate Active Assessment and Plan Future Appointments Future Scheduled Tests Radiology* NM Myocardial SPECT Drug Stress Multi 11/13/22 Functional Status 11/14/22 Family Member Travel History No recent t ravel Recent Travel History No recent travel Other exposure to Infectious Disease Non e Immunizations Given and Recorded Vaccine Date Status Refusal Reason influenza virus vaccine, inactivated 05/05/11 Tim rded influenza virus vaccine, inactivated 05/28/10 Tim rded Medications aspirin 81 mg =, Daily, 0 Refill(s) Start Date: 02/15/22 Status: Ordered cephalexin 500 mg oral capsule 500 mg = 1 cap, Oral, QID, X 7 days, # 28 cap, 0 Refill(s), 11/21/22 18:04:00 EDT, Pharmacy: [id number], 157, cm, 11/14/22 16:22:00 EDT, Height/Length Dosing, 64.86, kg, 11/14/22 16:22:00 EDT, Weight Dosing Start Date: 11/14/22 Stop Date: 11/21/22 Status: Ordered metoprolol succinate 25 mg =, Daily, 0 Refill(s) Start Date: 02/15/22 Status: Ordered Plavix 75 mg oral tablet 75 mg = 1 tab, Oral, Daily, # 30 tab, 12 Refill(s), Pharmacy: [id number], 160, cm, 10/22/22 15:28:00 EDT, Height/Length Dosing, 63.05, kg, 10/22/22 15:28:00 EDT, Weight Dosing Start Date: 11/13/22 Status: Ordered sertraline 0 Refill(s) Start Date: 02/15/22 Status: Ordered Mental Status 11/14/22 Eye Opening Response Claudia Spontaneous ly Best Verbal Response [place] Oriented Best Motor Response [place] Obeys comman ds [place] Coma Score 15 Results Laboratory List Name Date Basic Metabolic Panel (BMP) 11/14/22 C-Reactive Protein High Sensitivity (CRP HS) 11/14/22 CBC w/ Diff 11/14/22 Sedimentation Rate (ESR) 11/14/22 Uric Acid 11/14/22 Automated Diff 11/14/22 Most recent to oldest [Reference Range]: 1 WBC [5.0-10.0 x10^3/mcL] 6.9 x10^3/mcL (11/14/22 4:38 PM) RBC [4.1-5.3 x10^6/mcL] 4.4 x10^6/mcL (11/14/22 4:38 PM) Neutro Auto [40.0-75.0 %] 65.0 % (11/14/22 4:38 PM) Lymph Auto [20.0-50.0 %] 25.7 % (11/14/22 4:38 PM) Gage Auto [2.0-15.0 %] 6.6 % (11/14/22 4:38 PM) Basophil Auto [0.0-1.0 %] 0.4 % (11/14/22 4:38 PM) BUN [7-18 mg/dL] 14 mg/dL (11/14/22 4:38 PM) Glucose Level [74-106 mg/dL] 271 mg/dL *HI* (11/14/22 4:38 PM) Potassium Level [3.5-5.1 mmol/L] 3.5 mmo l/L (11/14/22 4:38 PM) MCV [80.0-96.0] 88.5 (11/14/22 4:38 PM) MCHC [31.0-35.0 g/dL] 35.3 g/dL *HI* (11/14/22 4:38 PM) Sodium Level [136-145 mmol/L] 136 mmol/L (11/14/22 4:38 PM) Hct [37.0-47.0 %] 39.1 % (11/14/22 4:38 PM) Calcium Level [8.5-10.1 mg/dL] 8.7 mg/dL (11/14/22 4:38 PM) MCH [26.0-32.0 pg] 31.2 pg (11/14/22 4:38 PM) Neutro Absolute 4.5 x10^3/mcL *NA* (11/14/22 4:38 PM) Hgb [12.0-16.0 g/dL] 13.8 g/dL (11/14/22 4:38 PM) Uric Acid [2.6-6.0 mg/dL] 2.3 mg/dL *LOW* (11/14/22 4:38 PM) Platelets [130-450 x10^3/mcL] 154 x10^3/ mcL (11/14/22 4:38 PM) CO2 [21-32 mmol/L] 30 mmol/L (11/14/22 4:38 PM) eGFR Non-AA [>=60] 54 *LOW* (11/14/22 4:38 PM) eGFR AA [>=60] 54 *LOW* (11/14/22 4:38 PM) Chloride Level [98-107 mmol/L] 101 mmol/ L (11/14/22 4:38 PM) RDW-CV [11.7-17.0 %] 13.0 % (11/14/22 4:38 PM) Imm Gran Auto [0.0-0.9 %] 0.3 % (11/14/22 4:38 PM) CRP High Sens [0.00-3.00 mg/L] 25.22 mg/ L *HI* (11/14/22 4:38 PM) Creatinine Level [0.55-1.02 mg/dL] 1.07 mg/dL *HI* (11/14/22 4:38 PM) Eos, Auto [1.0-6.0 %] 2.0 % (11/14/22 4:38 PM) ESR, Westergren [0-30 mm/hr] 19 mm/hr (11/14/22 4:38 PM) Vital Signs Most recent to oldest [Reference Range]: 1 2 Temperature Temporal Artery [36-38 Deg C ] 37.1 Deg C (11/14/22 4:16 PM) Peripheral Pulse Rate [60-100 bpm] 78 bp m (11/14/22 6:02 PM) 78 bpm (11/14/22 4:16 PM) Respiratory Rate [12-24 br/min] 16 br/mi n (11/14/22 6:02 PM) 16 br/min (11/14/22 4:16 PM) Blood Pressure [90-140/60-90 mmHg] 125/7 8mmHg (11/14/22 6:02 PM) Weight Dosing 64.86 kg (11/14/22 4:22 PM) Weight Estimated 64.86 kg (11/14/22 4:16 PM) Height/Length Dosing 157.000 cm (11/14/22 4:22 PM) Height/Length Estimated 157.000 cm (11/14/22 4:16 PM) Social History Social History Type Response Tobacco Never tobacco user T obacco Use:. Sex Female Hospital Discharge Instructions Patient Education 11/14/2022 17:05:42 Foot Pain Foot Pain Many things can cause foot pain. Some common causes are: ??? An injury. ??? A sprain. ??? Arthritis. ??? Blisters. ??? Bunions. Follow these instructions at home: Managing pain, stiffness, and swelling If directed, put ice on the painful area: ??? Put ice in a plastic bag. ??? Place a towel between your skin and the bag. ??? Leave the ice on for 20 minutes, 2???3 times a day. Activity ??? Do not stand or walk for long periods. ??? Return to your normal activities as told by your health care provider. Ask your health care provider what activities are safe for you. ??? Do stretches to relieve foot pain and stiffness as told by your health care provider. ??? Do not lift anything that is heavier than 10 lb (4.5 kg), or the limit that you are told, untilyour health care provider says that it is safe. Lifting a lot of weight can put added pressure on your feet. Lifestyle ??? Wear comfortable, supportive shoes that fit you well. Do not wear high heels. ??? Keep your feet clean and dry. General instructions ??? Take jjsk-[id number] and prescription medicines only as told by your health care provider. ??? Rub your foot gently. ??? Pay attention to any changes in your symptoms. ??? Keep all follow-up visits as told by your health care provider. This is important. Contact a health care provider if: ??? Your pain does not get better after a few days of self-care. ??? Your pain gets worse. ??? You cannot stand on your foot. Get help right away if: ??? Your foot is numb or tingling. ??? Your foot or toes are swollen. ??? Your foot or toes turn white or blue. ??? You have warmth and redness along your foot. Summary ??? Common causes of foot pain are injury, sprain, arthritis, blisters, or bunions. ??? Ice, medicines, and comfortable shoes may help foot pain. ??? Contact your health care provider if your pain does not get better after a few days of self-care. This information is not intended to replace advice given to you by your health care provider. Make sure you discuss any questions you have with your health care provider. Document Revised: 10/23/2021 Document Reviewed: 10/23/2021 [employer] Patient Education ?? 2021 [employer]. Follow Up Care 11/14/2022 16:16:28 With:Follow up with primary care provider Address: When:1 to 2 weeks Physician Emergency department Note * Tamy Murray MD: PERFORM Event Display: ED Note Physician Authored Date: [id number] CRYSTAL BARRIENTOS :1945 Age:77 years Sex:Female Visit Date:11/14/2022 Primary Care Physician: Anuradha LOWE, Tang Alves MD Basic Information Time Seen: Tamy Murray MD / 11/14/2022 16:19 Chief Complaint left foot swelling/ pain that started yesterday. did not take anything for pain today. History Of Present Illness: Patient started with??left??foot pain??on exam seems to localize to her MTP joint she says area is more swollen??and warmth. ??Patient is allergic to NSAIDs. ??Patient has not had a history of??gout in the past.?? No injury no trauma. ??No fever??no tingling no numbness Review of Systems: see hpi for ros Physical Exam Vitals & Measurements T:??37.1?C ??(Temporal Artery)?? HR:??78??(Peripheral)?? RR:??16?? BP:??125/78?? SpO2:??99%?? HT:??157.000??cm?? WT:??64.86??kg??(Estimated)?? Pain Score:??10?? O2 Therapy:??Room air?? General: Alert and oriented, well nourished,?No??acute distress Eye: PER,?Normal??conjunctiva, No scleral icterus HENT: Normocephalic?Normal?? hearing?? Respiratory:??Respiration??no distress??no increased work of breathing Heart:??Capillary refill less than 2 seconds??no??edema Chest: wall excursion wnl no abnormal movements no obvious deformities Musculoskeletal:??Positive tenderness of left MTP??dorsalis pedis posterior tibialis is a 2 bilaterally sensation light touch is intact??left foot is??warm??compared to coolness of right??no specificerythema??no abrasion no laceration Skin: Skin is warm, dry and pink,?No??rashes,?No??lesions Neurologic: Awake, alert and oriented X4 Psychiatric: Cooperative, appropriate mood and affect Medical Decision Making: For MDM please see under assessment and plan Procedure No Qualifying Data Assessment/Plan 1.??Foot pain??M79.673 This seems such as classic MTP area??pain with erythema??however patient does not have a history ofgout??looked with ultrasound there does not appear to be any significant fluid in joint??so do not think would be of will get joint fluid from this joint??so we will place patient after discussion??on??colchicine??1.2 mg to start followed by 0.6 mg 1 hour later then 0.6 mg twice a day??until 2 daysafter symptoms. ??Patient is a diabetic and had high blood sugars lately??so??concerned about beingplaced on prednisone??to help with pain and discomfort??patient will not start prednisone until??tomorrow afternoon??and then only if continued symptoms.?? Patient does have erythema there is no abras ion or laceration??possibility of potential cellulitis??although white count is normal will??place patient on Keflex 500 mg??4 times a day??for up to 1 week??to try to cover bases??patient is aware if she has any streaking or further symptoms to return to the emergency department.?? Discussed with patient risk and benefits??of this plan especially where we are not able to obtain??joint fluid at this point??patient understands??and is agreeable to this plan??knowing the risks and benefits. Ordered: cephalexin 500 mg oral capsule, 500 mg = 1 cap, Oral, QID, X 7 days, # 28 cap, 0 Refill(s), 11/21/22 18:04:00 EDT, Pharmacy: [facility], 157, cm, 11/14/22 16:22:00 EDT, Height/Length Dosing, 64.86, kg, 11/14/22 16:22:00 EDT, Weight Dosing Discharge Patient, 11/14/22 17:59:00 EDT, Home Independently, Constant Indicator ?? 2.??Inflammation of metatarsophalangeal joint??M19.079 See above. Ordered: cephalexin 500 mg oral capsule, 500 mg = 1 cap, Oral, QID, X 7 days, # 28 cap, 0 Refill(s), 11/21/22 18:04:00 EDT, Pharmacy: [id number], 157, cm, 11/14/22 16:22:00 EDT, Height/Length Dosing, 64.86, kg, 11/14/22 16:22:00 EDT, Weight Dosing Discharge Patient, 11/14/22 17:59:00 EDT, Home Independently, Constant Indicator ?? Patient Education Foot Pain Follow Up With When Contact Information Follow up with primary care provider Within 1 to 2 weeks Additional Instructions: Medication Reconciliation New Prescription cephalexin (cephalexin 500 mg oral capsule)1 Capsules Oral (given by mouth) 4 times a day for 7 Days. Refills: 0. ?? Unchanged [id number] Milligrams every day. ?? clopidogrel (Plavix 75 [...] and Differential?? LATEST RESULTS?? HISTORICAL RESULTS?? WBC?? 11/14/22 16:38?? 6.9?? 10/22/22?? 6.8?? RBC?? 11/14/22 16:38?? 4.4?? 10/22/22?? 4.7?? Hgb?? 11/14/22 16:38?? 13.8?? 10/22/22?? 14.5?? Hct?? 11/14/22 16:38?? 39.1?? 10/22/22?? 42.1?? MCV?? 11/14/22 16:38?? 88.5?? 10/22/22?? 89.2?? MCH?? 11/14/22 16:38?? 31.2?? 10/22/22?? 30.7?? MCHC?? 11/14/22 16:38?? 35.3 ??High?? 10/22/22?? 34.4?? RDW-CV?? 11/14/22 16:38?? 13.0?? 10/22/22?? 12.4?? Platelets?? 11/14/22 16:38?? 154?? 10/22/22?? 167?? Neutro Auto?? 11/14/22 16:38?? 65.0?? 10/22/22?? 62.9?? Lymph Auto?? 11/14/22 16:38?? 25.7?? 10/22/22?? 27.2?? Gage Auto?? 11/14/22 16:38?? 6.6?? 10/22/22?? 6.4?? Eos, Auto?? 11/14/22 16:38?? 2.0?? 10/22/22?? 2.5?? Basophil Auto?? 11/14/22 16:38?? 0.4?? 10/22/22?? 0.7?? Imm Gran Auto?? 11/14/22 16:38?? 0.3?? 10/22/22?? 0.3?? Neutro Absolute?? 11/14/22 16:38?? 4.5?? 10/22/22?? 4.2? Miscellaneous Hematology?? LATEST RESULTS?? ESR, Westergren?? 11/14/22 16:38?? 19? Routine Chemistry?? LATEST RESULTS?? HISTORICAL RESULTS?? Sodium Level?? 11/14/22 16:38?? 136?? 10/22/22?? 136?? Potassium Level?? 11/14/22 16:38?? 3.5?? 10/22/22?? 3.9?? Chloride Level?? 11/14/22 16:38?? 101?? 10/22/22?? 99?? CO2?? 11/14/22 16:38?? 30?? 10/22/22?? 30?? BUN?? 11/14/22 16:38?? 14?? 10/22/22?? 17?? Glucose Level?? 11/14/22 16:38?? 271 ??High?? 10/22/22?? 330 ??High?? Creatinine Level?? 11/14/22 16:38?? 1.07 ??High?? 10/22/22?? 1.09 ??High?? eGFR AA?? 11/14/22 16:38?? 54 ??Low?? 10/22/22?? 52 ??Low?? eGFR Non-AA?? 11/14/22 16:38?? 54 ??Low?? 10/22/22?? 52 ??Low?? Calcium Level?? 11/14/22 16:38?? 8.7?? 10/22/22?? 9.1?? Uric Acid?? 11/14/22 16:38?? 2.3 ??Low? CRP High Sens?? 11/14/22 16:38?? 25.22 ??High? Electronically Signed on 11/14/22 06:42 PM Tamy Murray MD Emergency department Discharge instructions * Tamy Murray MD: PERFORM Event Display: ED Discharge Information Authored Date: [id number] CRYSTAL BARRIENTOS :1945 Age:77 years Sex:Female Visit Date:11/14/2022 Primary Care Physician: Tang Feliciano MD Discharge Instructions We would like to thank you for allowing us to assist you with your healthcare needs. The following includes patient education materials and information regarding your injury/illness. Diagnosis from Today's Visit Foot pain Inflammation of metatarsophalangeal joint Discharge Vitals Temperature??(Temporal Artery) 98.8 ??F (37.1 ??C) Heart Rate??(Peripheral) 78 Respiratory Rate?? 16 Blood Pressure?? 125/78?? Height?? 61.81 in (157.000 cm) Weight??(Estimated) 143.02 lb (64.86 kg) Allergies linagliptin??(Head pain) metFORMIN??(Diarrhoea) BEE VENOM PROTEIN (HONEY BEE) ibuprofen??(Urticaria) What to Do Next Instructions from Your Care Team Take colchicine 1.2 mg??when you get your prescription then 1 hour later take 0.6 mg.?? Until you are pain-free from your??foot??take colchicine 0.6 mg twice a day.?? If you are still having pain late tomorrow you may take prednisone 40 mg a day??he will need to be on this??for a while so you do not have a flare??of your pain. ??Take Keflex (cephalexin) 500 mg??4 times a day for 7 days. ??If you worsen please return to the emergency department. You Need to Schedule the Following Appointments Follow Up with??Follow up with primary care provider When:??Within 1 to 2 weeks Upcoming Scheduled Appointments Thursday. 2022 1:40 PM EDT ?? You were [...] Much When Why Instructions Next Dose New cephalexin (cephalexin 500 mg oral capsule) 1 Capsules Oral (given by mouth) 4 times a day Foot pain Inflammation of metatarsophalangeal joint Duration: 7 Days Pickup at [facility] Unchanged aspirin 81 Milligrams Every day Unchanged clopidogrel (Plavix 75 mg oral tablet) 1 tab Oral (given by mouth) Every day CAD (coronary artery disease) Unchanged metoprolol (metoprolol succinate) 25 Milligrams Every day Unchanged sertraline Pharmacy Information [facility]: [address], [place] [id number] [phone] Education Materials Foot Pain Many things can cause foot pain. Some common causes are: ? An injury. ? A sprain. ? Arthritis. ? Blisters. ? Bunions. Follow these instructions at home: Managing pain, stiffness, and swelling If directed, put ice on the painful area: ? Put ice in a plastic bag. ? Place a towel between your skin and the bag. ? Leave the ice on for 20 minutes, 2???3 times a day. Activity ? Do not stand or walk for long periods. ? Return to your normal activities as told by your health care provider. Ask your health care provider what activities are safe for you. ? Do stretches to relieve foot pain and stiffness as told by your health care provider. ? Do not lift anything that is heavier than 10 lb (4.5 kg), or the limit that you are told, until your health care provider says that it is safe. Lifting a lot of weight can put added pressure on your feet. Lifestyle ? Wear comfortable, supportive shoes that fit you well. Do not wear high heels. ? Keep your feet clean and dry. General instructions ? Take sttj-vmf-mlnrunj and prescription medicines only as told by your health care provider. ? Rub your foot gently. ? Pay attention to any changes in your symptoms. ? Keep all follow-up visits as told by your health care provider. This is important. Contact a health care provider if: ? Your pain does not get better after a few days of self-care. ? Your pain gets worse. ? You cannot stand on your foot. Get help right away if: ? Your foot is numb or tingling. ? Your foot or toes are swollen. ? Your foot or toes turn white or blue. ? You have warmth and redness along your foot. Summary ? Common causes of foot pain are injury, sprain, arthritis, blisters, or bunions. ? Ice, medicines, and comfortable shoes may help foot pain. ? Contact your health care provider if your pain does not get better after a few days of self-care. This information is not intended to replace advice given to you by your health care provider. Make sure you discuss any questions you have with your health care provider. Document Revised: 10/23/2021 Document Reviewed: 10/23/2021 [employer] Patient Education ?? 2021 [employer] Tests Performed Lab Test Name Test Result Date/Time WBC 6.9 x10^3/mcL 11/14/2022 16:38 EDT RBC 4.4 x10^6/mcL 11/14/2022 16:38 EDT Hgb 13.8 g/dL 11/14/2022 16:38 EDT Hct 39.1 % 11/14/2022 16:38 EDT MCV 88.5 11/14/2022 16:38 EDT MCH 31.2 pg 11/14/2022 16:38 EDT MCHC 35.3 g/dL 11/14/2022 16:38 EDT RDW-CV 13.0 % 11/14/2022 16:38 EDT Platelets 154 x10^3/mcL 11/14/2022 16:38 EDT Neutro Auto 65.0 % 11/14/2022 16:38 EDT Lymph Auto 25.7 % 11/14/2022 16:38 EDT Gage Auto 6.6 % 11/14/2022 16:38 EDT Eos, Auto 2.0 % 11/14/2022 16:38 EDT Basophil Auto 0.4 % 11/14/2022 16:38 EDT Imm Gran Auto 0.3 % 11/14/2022 16:38 EDT Neutro Absolute 4.5 x10^3/mcL 11/14/2022 16:38 EDT ESR, Westergren 19 mm/hr 11/14/2022 16:38 EDT Sodium Level 136 mmol/L 11/14/2022 16:38 EDT Potassium Level 3.5 mmol/L 11/14/2022 16:38 EDT Chloride Level 101 mmol/L 11/14/2022 16:38 EDT CO2 30 mmol/L 11/14/2022 16:38 EDT BUN 14 mg/dL 11/14/2022 16:38 EDT Glucose Level 271 mg/dL 11/14/2022 16:38 EDT Creatinine Level 1.07 mg/dL 11/14/2022 16:38 EDT eGFR AA 54 11/14/2022 16:38 EDT eGFR Non-AA 54 11/14/2022 16:38 EDT Calcium Level 8.7 mg/dL 11/14/2022 16:38 EDT Uric Acid 2.3 mg/dL 11/14/2022 16:38 EDT CRP High Sens 25.22 mg/L 11/14/2022 16:38 EDT Patient/Network Lead Signature Patient Name:CRYSTAL BARRIENTOS I have received this information and my questions have been answered. Patient/Network Lead Name: Patient/Network Lead Signature: Relationship to Patient: Witness Name/Signature: Date: Electronically Signed on: 11/14/2022 18:07 EDTSigned by:[facility] Emergency department Note * Daniela Greenwood H: PERFORM Event Display: ED Notes Authored Date: [id number] * Daniela Greenwood: PERFORM Event Display: ED Notes Authored Date: [id number] Patient Care team information Care Team Personnel Name: Tang Feliciano MD Position: Physician Member Role: Primary Care Physician Address: Address: [address] [place] [id number] Name: Arlen Boland RN Position: Nurse Member Role: ED Nurse Name: Tamy Murray MD Position: Physician Member Role: Attending Physician Address: Address: [address] [place] [id number] Care Team Related Persons Name: DENNIS FRAGA Address: Home
--- OUTSIDE RECORDS SUMMARY | 2024-05-02 14:22 | XMS_ITS | Encounter Summary ---
Author Organization [facility] Address [address] [place] [address] Care Team Providers Care Publishing Director Name Role Phone Jamal Padilla MD Primary Care Provider [phone] Encounter Details Date Type Department Care Team (Late st Contact Info) Description 07/31/[address] [facility]ology & Laboratory Medicine - [address] [address] Outr Resulting Lab, Provider Social History Tobacco Use Types Packs/Day Years Used Date Smoking Tobacco: Never Assessed Interpersonal Safety Answer Date Record ed Physically Hurt Never 03/04/2020 Verbally Threaten Not on file 03/04/2020 Sex and Gender Information Value Date Recorded Sex Assigned at Not on file Gender Identity Not on file Sexual Orientation Not on file documented as of this encounter Plan of Treatment Not on file documented as of this encounter Procedures Procedure Name Priority Date/Time Associated Diagnosis Comments ZZCOVID-19 TEST [facility] PCR Today 07/31/2020 9:53 EST COVID-19 TESTING Routine 07/31/2020 9:53 EST documented in this encounter Results * COVID-19 TEST [facility] PCR (07/31/2020 9:53 EST) Swab ENTIRE NASOPHARYNX / Unknown 07/31/2020 9:53 EST 07/31/2020 16:42 EST Provider Outr Resulting Lab MICROBIOLOGY - GENERAL ORDERABLES [facility] [address] [place] [address] * COVID-19 TESTING (07/31/2020 9:53 EST) COVID-19 rt-PCR Result Negative Negative 07/31/2020 22:40 EST [facility] Comment: This test has not been FDA cleared or approved. This test has been authorized by FDA under an EUA for use by authorized laboratories. This test has been authorized only for detection of nucleic acid from 2019-nCoV, not for any other viruses or pathogens. This test is only authorized for the duration of the declaration that circumstances exist justifying the authorization of emergency use of in vitro diagnostic tests for detection and/or diagnosis of 2019-nCoV under section 564(b)(1) of Act, 21 U.S.C ?? 360bbb-3(b) (1), unless the authorization is terminated or revoked sooner. Negative results do not preclude 2019-nCoV infection and should not be used as the sole basis for treatment or other patient management decisions. Negative results must be combined with clinical observations, patient history, and epidemiological information. Performed on the prollieher Fusion instrument Performing Lab [place] [facility] 07/31/2020 22:40 EST [facility] Swab 07/31/2020 9:53 EST 07/31/2020 16:42 EST Provider Outr Resulting Lab MICROBIOLOGY - GENERAL ORDERABLES [facility] [address] [place] [address] documented in this encounter Visit Diagnoses Not on filedocumented in this encounter Care Teams Publishing Director Relationship Specialty Start Date End Date Jamal Padilla MD PCP - General 06/11/15 documented as of this encounter
--- OUTSIDE RECORDS SUMMARY | 2024-05-02 14:22 | XMS_ITS | Encounter Summary ---
Author Organization [facility] Address [address] [place] [address] Care Team Providers Care Flight Superintendent Name Role Phone Jamal Padilla MD Primary Care Provider [phone] Encounter Details Date Type Department Care Team (Latest Contact Info) Description 08/17/2017 11:09 EST - 08/17/2017 23:59 EST Hospital Encounter [address] [address] Unknown, Provider, Discharge Disposition: Home or Self Care Social History Tobacco Use Types Packs/Day Years Used Date Smoking Tobacco: Never Assessed Sex and Gender Information Value Date Recorded Sex Assigned at Not on file Gender Identity Not on file Sexual Orientation Not on file documented as of this encounter Discharge Disposition Disposition Code Departure Means Destination Home or Self Penitentiary documented in this encounter Plan of Treatment Not on file documented as of this encounter Visit Diagnoses Not on filedocumented in this encounter Care Teams Flight Superintendent Relationship Specialty Start Date End Date Jamal Padilla MD PCP - General 06/11/15 documented as of this encounter
--- OUTSIDE RECORDS SUMMARY | 2024-05-02 14:22 | XMS_ITS | Encounter Summary ---
Author Organization [facility] Address [address] [place] [address] Care Team Providers Care Grocery Stocker Name Role Phone Jamal Padilla MD Primary Care Provider [phone] Encounter Details Date Type Department Care Team (Late st Contact Info) Description 01/01/2016 Results Only [facility] [phone] Davie Oliva MD [address] [place] [address] [phone] Social History Tobacco Use Types Packs/Day Years Used Date Smoking Tobacco: Never Assessed Sex and Gender Information Value Date Recorded Sex Assigned at Not on file Gender Identity Not on file Sexual Orientation Not on file documented as of this encounter Plan of Treatment Not on file documented as of this encounter Procedures Procedure Name Priority Date/Time Associated Diagnosis Comments CYTOPATHOLOGY Routine 01/01/2016 0:00 EDT documented in this encounter Results * CYTOPATHOLOGY (01/01/2016 0:00 EDT) Pathology Report: CYTOPATHOLOGY REPORT Reports generated via electronic interface contain original data; however they are lacking the format of the original report. Caution should be taken when reading/interpret ing unformatted reports. Name: ? CRYSTAL BARRIENTOS ? Accession #: ? [id number] : ? 1945 (Age: 70) ??F ?Collect Date: ? 01/01/2016 Location: ? [facility] ? Receive Date: ? 01/02/2016 Provider: ? DAVIE OLIVA MD Copy to: ?ANG GREY MD ? CYTOLOGIC DIAGNOSIS: THYROID, LEFT LOWER POLE, 1.5 CM EXOPHYTIC NODULE, FINE NEEDLE ASPIRATION: - ??Unsatisfactory for evaluation. See comment. ? COMMENT: The specimen consists predominantly of blood. Watery colloid and rare hemosiderin laden macrophages are present. The rare follicular cells present on the Thin Prep do not meet the quantity criteria for adequacy and hence the specimen is unsatisfactory. Dr. Garcia 01/02/2016 2:41 PM Document reviewed and electronically signed by: ? DESTINY KELLY MD Report Date: ??01/02/2016 15:49 By the signature above, the attending physician certifies that he/she has personally conducted a gross and/or microscopic examination of the described specimens and rendered or confirmed the above diagnosis. Specimen Type: ? Thyroid, Fine Needle Aspiration, Left Clinical History: ? 1.5 cm exophytic nodule lower pole left thyroid ? Rapid Interpretation: Evaluation episode #1: ? Passes 1-3: ??Rare group follicular cells, inadequate for diagnosis. Evaluation episode #2: ? Passes 4-6: ??Few groups follicular cells, histiocytes, colloid. ??Borderline adequacy. Dr. Oliva opted to not do additional passes. Dr. Keanu Cohen 01/01/2016 2:00 PM Gross Description: ? 8 fixed prepared slides, 3 air dried prepared slides, and 1 tube of CytoLyt were received and processed by selective cellular enhancement technique. ? End of Report [facility] 01/01/2016 01/02/2016 9:3 8 EDT Davie Oliva MD PATHOLOGY ORDERABLES [facility] [address] [place] [address] documented in this encounter Visit Diagnoses Not on filedocumented in this encounter Care Teams Grocery Stocker Relationship Specialty Start Date End Date Jamal Padilla MD PCP - General 06/11/15 documented as of this encounter
--- OUTSIDE RECORDS SUMMARY | 2024-05-02 14:22 | XMS_ITS | Encounter Summary ---
Author Organization [facility] Address [address] [place] [address] Care Team Providers Care Associate Professor Of Forestry Name Role Phone Jamal Padilla MD Primary Care Provider [phone] Encounter Details Date Type Department Care Team (Late st Contact Info) Description 11/07/2020 Lab Requisition [facility] Pathology & Laboratory Medicine - [address] [address] Outr Resulting Lab, Provider Social History Tobacco [...] Comments ZZCOVID-19 TEST [facility] PCR Today 11/07/2020 9:06 EDT COVID-19 TESTING Routine 11/07/2020 9:06 EDT documented in this encounter Results * COVID-19 TEST [facility] PCR (11/07/2020 9:06 EDT) Swab ENTIRE NASOPHARYNX / Unknown 11/07/2020 9:06 EDT 11/07/2020 16:45 EDT Provider Outr Resulting Lab MICROBIOLOGY - GENERAL ORDERABLES [facility] [address] [place] [address] * COVID-19 TESTING (11/07/2020 9:06 EDT) COVID-19 rt-PCR Result Negative Negative 11/08/2020 12:04 EDT [facility] Comment: This test has not [...] clinical observations, patient history, and epidemiological information. Testing was performed using the ashutosh SARS-CoV-2 assay ([employer] on the Ashutosh 6800 System Performing Lab Ashutosh [address] [facility] 11/08/2020 12:04 EDT [facility] Swab 11/07/2020 9:06 EDT 11/07/2020 16:45 EDT Provider Outr Resulting Lab MICROBIOLOGY - GENERAL ORDERABLES [facility] [address] [place] [address] documented in this encounter Visit Diagnoses Not on filedocumented in this encounter Care Teams Associate Professor Of Forestry Relationship Specialty Start Date End Date Jamal Padilla MD PCP - General 06/11/15 documented as of this encounter
--- OUTSIDE RECORDS SUMMARY | 2024-05-02 14:22 | XMS_ITS | Continuity of Care Document ---
Author Organization [facility] Address [address] [place] [address] Care Team Providers Care Inspector Pawnshop Detail Name Role Phone Primeau [facility], Tang Alves Primary Care Physician [facility] [id number] Date(s): 08/05/23 - 08/05/23 [facility] [address] [place] [address] Discharge Disposition: Home Allergies, Adverse Reactions, Alerts [...] Daily, # 30 tab, 12 Refill(s), Pharmacy: [id number], 157, cm, 04/28/23 13:43:00 [...] Role: Primary Care Physician Address: Address: [id number] [place] [address] Care Team Related Persons Name: DENNIS FRAAG
--- OUTSIDE RECORDS SUMMARY | 2024-05-02 14:22 | XMS_ITS | Encounter Summary ---
Author Organization [facility] Address [address] [place] [address] Care Team Providers Care Wafer Production Worker Name Role Phone Jamal Padilla MD Primary Care Provider [phone] Encounter Details Date Type Department Care Team (Late st Contact Info) Description 11/22/2021 Lab Requisition [facility] Pathology & Laboratory Medicine - [address] [id number] Outr Resulting Lab, Provider Social History Tobacco [...] Procedure Name Priority Date/Time Associated Diagnosis Comments CCP ANTIBODIES Routine 11/21/2021 11:10 EDT RHEUMATOID FACTOR Routine 11/21/2021 11: 10 EDT documented in this encounter Results * RHEUMATOID FACTOR (11/21/2021 11:10 EDT) Rheumatoid Factor <8.6 <12.0 IU/mL 11/22/2021 17:[address] [facility] Blood VENOUS BLOOD / Unknown 11/21/2021 11:10 EDT 11/22/2021 17:08 EDT Provider Outr Resulting Lab CHEMISTRY & BLOOD GAS ORDERABLES Performing Organization Address City/[facility]/ZIP Co de Phone Number [facility] [address] [place] [address] * CCP ANTIBODIES (11/21/2021 11:10 EDT) CCP Antibodies <2.5 <5.0 U/mL 11/22/2021 19:[address] [facility] Blood VENOUS BLOOD / Unknown 11/21/2021 11:10 EDT 11/22/2021 17:08 EDT Provider Outr Resulting Lab IMMUNOLOGY A ND SEROLOGY ORDERABLES Performing Organization Address [facility] Co de Phone Number [facility] [address] [place] [address] documented in this encounter Visit Diagnoses Not on filedocumented in this encounter Care Teams Wafer Production Worker Relationship Specialty Start Date End Date Jamal Padilla MD PCP - General 06/11/15 documented as of this encounter
--- OUTSIDE RECORDS SUMMARY | 2024-05-02 14:22 | XMS_ITS | Continuity of Care Document ---
Author Organization [facility] Address [address] [place] [address] Care Team Providers Care Police And Fire Dispatcher Name Role Phone Anuradha [facility] Primary Care Physician Encounter [facility] Date(s): 05/27/22 - 05/27/[address] [address] Encounter Diagnosis Chest pain(Discharge Diagnosis) - 05/27/22 Anxiety reaction(Discharge Diagnosis) - 05/27/22 Discharge Disposition: Home or Self Care Attending Physician: Bobbi Alvarez MD Admitting Physician: Bobbi Alvarez MD Allergies, Adverse Reactions, Alerts Substance Reaction Severity Status BEE VENOM PROTEIN (HONEY BEE) Unknown Active ibuprofen Urticaria Unknown Active metFORMIN Diarrhoea Moderate Active linagliptin Head pain Moderate Active Functional Status 05/27/22 Family Member Travel History Last travel within 14 days Recent Travel History No recent travel Other exposure to Infectious Disease Non e Immunizations Given and Recorded Vaccine Date Status Refusal Reason influenza virus vaccine, inactivated 05/05/11 Tim rded influenza virus vaccine, inactivated 05/28/10 Tim rded Medications aspirin 81 mg =, Daily, 0 Refill(s) Start Date: 02/15/22 Status: Ordered azithromycin 250 mg oral tablet See Instruction, Oral, Daily, take 2 tabs on day 1 and 1 tabs on day 2-5, # 6 tab, 0 Refill(s), Pharmacy: [id number], 157, cm, 02/15/22 11:52:00 EDT, Height/Length Dosing, 64.41, kg, 02/15/22 11:52:00 EDT, Weight Dosing Start Date: 02/15/22 Status: Ordered metoprolol succinate 25 mg =, Daily, 0 Refill(s) Start Date: 02/15/22 Status: Ordered sertraline 0 Refill(s) Start Date: 02/15/22 Status: Ordered Results Laboratory List Name Date Basic Metabolic Panel 05/27/22 CBC w/ Diff 05/27/22 Troponin-I 05/27/22 Automated Diff 05/27/22 Most recent to oldest [Reference Range]: 1 WBC [5.0-10.0 x10^3/mcL] 7.7 x10^3/mcL (05/27/22 3:06 PM) RBC [4.1-5.3 x10^6/mcL] 4.3 x10^6/mcL (05/27/22 3:06 PM) Neutro Auto [40.0-75.0 %] 72.4 % (05/27/22 3:06 PM) Lymph Auto [20.0-50.0 %] 19.7 % *LOW* (05/27/22 3:06 PM) Alcorn Auto [2.0-15.0 %] 5.9 % (05/27/22 3:06 PM) Basophil Auto [0.0-1.0 %] 0.4 % (05/27/22 3:06 PM) BUN [7-18 mg/dL] 15 mg/dL (05/27/22 3:06 PM) Glucose Level [74-106 mg/dL] 191 mg/dL *HI* (05/27/22 3:06 PM) Potassium Level [3.5-5.1 mmol/L] 3.8 mmo l/L (05/27/22 3:06 PM) MCV [80.0-103.0 fL] 87.0 fL (05/27/22 3:06 PM) MCHC [31.0-35.0 g/dL] 35.7 g/dL *HI* (05/27/22 3:06 PM) Troponin-I [0.0-51.4 pg/mL] 6.0 pg/mL (05/27/22 3:06 PM) Sodium Level [136-145 mmol/L] 139 mmol/L (05/27/22 3:06 PM) Hct [37.0-47.0 %] 37.5 % (05/27/22 3:06 PM) Calcium Level [8.5-10.1 mg/dL] 8.8 mg/dL (05/27/22 3:06 PM) MCH [26.0-32.0 pg] 31.1 pg (05/27/22 3:06 PM) Neutro Absolute 5.6 x10^3/mcL *NA* (05/27/22 3:06 PM) Hgb [12.0-16.0 g/dL] 13.4 g/dL (05/27/22 3:06 PM) Platelets [130-450 x10^3/mcL] 156 x10^3/ mcL (05/27/22 3:06 PM) CO2 [21-32 mmol/L] 26 mmol/L (05/27/22 3:06 PM) eGFR Non-AA [>=60] 57 *LOW* (05/27/22 3:06 PM) eGFR AA [>=60] 57 *LOW* (05/27/22 3:06 PM) Chloride Level [98-107 mmol/L] 104 mmol/ L (05/27/22 3:06 PM) RDW-CV [11.7-17.0 %] 13.2 % (05/27/22 3:06 PM) Imm Gran Auto [0.0-0.9 %] 0.3 % (05/27/22 3:06 PM) Creatinine Level [0.55-1.02 mg/dL] 1.02 mg/dL (05/27/22 3:06 PM) Eos, Auto [1.0-6.0 %] 1.3 % (05/27/22 3:06 PM) Vital Signs Most recent to oldest [Reference Range]: 1 2 Temperature Temporal Artery [36-38 Deg C ] 36 Deg C (05/27/22 2:34 PM) Peripheral Pulse Rate [60-100 bpm] 55 bp m *LOW* (05/27/22 3:49 PM) 68 bpm (05/27/22 2:34 PM) Respiratory Rate [12-24 br/min] 2 br/min *LOW* (05/27/22 3:49 PM) 12 br/min (05/27/22 2:34 PM) Blood Pressure [90-140/60-90 mmHg] 138/5 7mmHg (05/27/22 3:49 PM) Weight Dosing 65.00 kg (05/27/22 2:49 PM) Weight Estimated 65.00 kg (05/27/22 2:34 PM) Height/Length Dosing 160.000 cm (05/27/22 2:49 PM) Height/Length Estimated 160.000 cm (05/27/22 2:34 PM) Social History Social History Type Response Tobacco Never tobacco user T obacco Use:. Sex Female Hospital Discharge Instructions Patient Education 05/27/2022 14:44:25 Nonspecific Chest Pain, Adult Nonspecific Chest Pain, [...] these instructions at home: Medicines ??? Take [id number] and prescription medicines only as told by [...] Reviewed: 10/03/2021 Elsevier Patient Education ?? 2021 [employer] Follow Up Care 05/27/2022 14:34:34 With:Follow up with primary care provider Address: When: only if needed Patient Care team information [facility]nel [facility] Address: Address: [address] [address]- [place]
--- OUTSIDE RECORDS SUMMARY | 2024-05-02 14:22 | XMS_ITS | Continuity of Care Document ---
Author Organization [facility] Address [address] [place] [address] Care Team Providers Care Call Center Operations Manager Name Role Phone Prime[facility] Primary Care Physician [facility] Date(s): 11/13/22 - 11/13/22 [facility] [address] [place] [address] Encounter Diagnosis CAD (coronary artery disease)(Discharge Diagnosis) - 11/13/22 Discharge Disposition: Home or Self Care Attending Physician: Davie Petersen MD Allergies, Adverse Reactions, Alerts Substance Reaction Severity Status BEE VENOM PROTEIN (HONEY BEE) Unknown Active ibuprofen Urticaria Unknown Active metFORMIN Diarrhoea Moderate Active linagliptin Head pain Moderate Active Assessment and Plan Future Appointments Future Scheduled Tests Radiology* [place] Myocardial SPECT Drug Stress Multi 11/13/22 Functional Status 11/13/22 Other exposure to Infectious Disease Non e [...] Daily, # 30 tab, 12 Refill(s), Pharmacy: [id number], 160, cm, 10/22/22 15:28:00 EDT, Height/Length Dosing, 63.05, kg, 10/22/22 15:28:00 EDT, Weight Dosing Start Date: 11/13/22 Status: Ordered sertraline 0 Refill(s) Start Date: 02/15/22 Status: Ordered Vital Signs Most recent to oldest [Reference Range]: 1 Peripheral Pulse Rate [60-100 bpm] 73 bp m (11/13/22 1:50 PM) Blood Pressure [90-140/60-90 mmHg] 143/6 8mmHg *HI* (11/13/22 1:50 PM) Weight 64.4 kg (11/13/22 1:50 PM) Weight Measured (lbs) 141.978 lb (11/13/22 1:50 PM) Social History Social History Type Response Tobacco Never tobacco user T obacco Use:. Sex Female Cardiology Outpatient Note * Davie Petersen MD: PERFORM Event Display: Cardiology Office Clinic Note Authored Date: [id number] CRYSTAL BARRIENTOS :1945 Age:77 years Sex:Female Visit Date:11/13/2022 Primary Care Physician: Tang Feliciano MD History of Present Illness Cardiac problems: 1. ??Pulmonary embolism 2. ??DVT 3. ??Chest pain 4. ??Coronary artery disease, status post PCI to the LAD 2018 at 5. ??Palpitations??(skipped beats) ?? This is a 77-year-old woman who I believe is new to the practice (she saw Dr. Mabry in 2018, and was advised to have a cardiac cath at that time). ??She is referred by the emergency department, after her June evaluation where she noted palpitations. ??A Holter monitor was placed at that point, which was read by??Dr. Lay, and was reassuring. ?? It turns out that monitor was done for palpitations, which she describes as a vibrating sensation in her chest. ??That has been ongoing, occasionally, since she had PCI in 2018??and does not seem to be better nor worse. ??I was able to reassure her that this is unlikely to be cardiac. ?? More worrisome is recurrent chest pain. ??It sounds like she has been pain-free largely for 5 years, since PCI, up until??the past month or so. ??It is hard to get a??detailed history,??but it soundslike she has had at least 2 episodes of chest discomfort. ??She describes it as an 8/10 squeezing sensation??in the left side of her chest that does??cause shortness of breath and nausea. ??There is no diaphoresis but there is occasionally some radiation down the left arm??and or to the back.?? It lasts somewhere between 15 and 30 minutes, seems to improve with nitro and/or sitting, although really there are no exacerbating or relieving factors early on.?She simply??waits it out.?? They haveoccurred at rest. ?? She had an issue where she lost her balance and fell in the shower; is unclear whether this was a syncopal episode or not; she remembers hitting the curtain and then falling down to the floor, andshe was not using the shower chair that she supposed to use. ??The history is incredibly vague there??and it is hard to tell??whether this was a concerning episode or not. ??In general, other than above, there is no chest pain, orthopnea, PND, palpitations, syncope,??dyspnea. ??There is occasional lower extremity edema, although that is only mild on today's exam. Review of Systems A complete review of systems is negative other than as noted in the history of present illness. Physical Exam Vitals & Measurements HR:??73??(Peripheral)?? BP:??143/68?? SpO2:??96%?? WT:??64.4??kg?? HEENT: Normocephalic, atraumatic Respirations: Clear to auscultation bilaterally with no wheezes rubs or rhonchi Cardiac: Regular rate and rhythm, normal S1, S2, no murmurs gallops or rubs Abdomen: Nontender nondistended normal active bowel sounds Extremities: 2+ dorsalis pedis pulses bilaterally with no significant edema Assessment/Plan CAD (coronary artery disease)??I25.10 Ordered: Plavix 75 mg oral tablet, 75 mg = 1 tab, Oral, Daily, # 30 tab, 12 Refill(s), Pharmacy: [id number], 160, cm, 10/22/22 15:28:00 EDT, Height/Length Dosing, 63.05, kg, 10/22/22 15:28:00 EDT, Weight Dosing CV ECG Clinic, 11/13/22 13:48:00 EDT, Routine, Reason: Other (please specify), Stop date and time 11/13/22 13:48:00 EDT, CAD (coronary artery disease), ORD_SET_REQ_DT_RANGE, Mehdi's Internal Person Id Echocardiogram Complete, 11/13/22, Order for future visit, CAD (coronary artery disease) Follow-Up Appointment Request [facility], *Est. 12/13/22 +/- 7 days, Future Order, after nuc is done, In Approximately, [facility] [place] Myocardial SPECT Drug Stress Multi, 11/13/22, Routine, Reason: cp, Transport Mode: Ambulatory, CAD (coronary artery disease) Chest pain, Exam to be performed outside organization? ?? Data reviewed: 06/20/2022:??Holter monitor, 24 hours, read by Dr. [...] inferior leads??but no evidence of active ischemia. ?? 77-year-old woman??with history of coronary disease who is now experiencing intermittent chest pain. ?? Chest pain:??It is hard to tell??whether this is ischemic. ??It certainly has many typical features, and she tells me that it feels somewhat reminiscent of the pain that she had 5 years ago when she got PCI.?? For these reasons, we certainly need to take this seriously.?? Is happening at rest which suggests??possible unstable angina, although my suspicion for that is actually relatively low. ??Regardless, I am going to start Plavix 75 mg daily??to help provide some cardioprotection while working this up. ??We will arrange for an echocardiogram??and a Lexiscan nuclear stress test.?? She is notexercising much, and I do not think she would??be a great candidate for an exercise test. ?? We will get back together as quickly as we can. ?? Palpitations: This vibrating feeling that she had for 5 years??has been worked up and is extremely unlikely to represent any arrhythmia or other cardiac concern.?? No changes recommended there at this point. ?? Thank you for the??courtesy of the consultation. ??She tells me that she has been seeing a ground support equipment assembler out of [facility], and had seen Dr. Mabry??many years ago;we ??will try to coordinate. Problem List/Past Medical History Ongoing No qualifying data Historical No qualifying data Medications aspirin, 81 mg, Daily metoprolol succinate, 25 mg, Daily Plavix 75 mg oral tablet, 75 mg= 1 tab, Oral, Daily, 12 refills sertraline Allergies linagliptin??(Head pain) metFORMIN??(Diarrhoea) BEE VENOM PROTEIN (HONEY BEE) ibuprofen??(Urticaria) Social History Alcohol Never Electronic Cigarette/Vaping Electronic Cigarette Use: Never. Substance Use Never Tobacco Never tobacco user Tobacco Use:. Electronically Signed on 11/13/22 02:22 PM Davie Petersen MD Patient Care team information Care Team Personnel Name: Tang Feliciano MD Position: Physician Member Role: Primary Care Physician Address: Address: [address] [place] [phone] [place] Care Team Related Persons Name: DENNIS FRAGA Address: Home
--- OUTSIDE RECORDS SUMMARY | 2024-05-02 14:22 | XMS_ITS | Encounter Summary ---
Author Organization [facility] Address [address] [place] [address] Care Team Providers Care Building Supervisor Name Role Phone Jamal Padilla MD Primary Care Provider [phone] Encounter Details Date Type Department Care Team (Late st Contact Info) Description 05/30/2019 Results Only [facility] [phone] Nakia Santiago MD [address] [place] [id number] Social History Tobacco Use Types Packs/Day Years Used Date Smoking Tobacco: Never Assessed Sex and Gender Information Value Date Recorded Sex Assigned at Not on file Gender Identity Not on file Sexual Orientation Not on file documented as of this encounter Plan of Treatment Not on file documented as of this encounter Procedures Procedure Name Priority Date/Time Associated Diagnosis Comments SURGICAL PATHOLOGY Routine 05/30/2019 8:50 EDT documented in this encounter Results * SURGICAL PATHOLOGY (05/30/2019 8:50 EDT) Pathology Report: SURGICAL PATHOLOGY REPORT Reports generated via electronic interface contain original data; however they are lacking the format of the original report. Caution should be taken when reading/interpret ing unformatted reports. Name: ? CRYSTAL BARRIENTOS ? Accession #: ? [id number] ? : ? 1945 (Age: 73) ??F ? Collect Date: ? 05/30/2019 ? Location: ? [facility] ? Receive Date: ? 05/30/2019 ? Provider: NAKIA SANTIAGO MD Copy to: ? Final Pathologic Diagnosis: gallbladder, cholecystectomy: - ??Mild chronic cholecystitis. Document reviewed and electronically signed by: FABIOLA SCHMID MD Report ??Date: 06/02/2019 09:15 By the signature above, the attending physician certifies that he/she has personally conducted a gross and/or microscopic examination of the described specimens and rendered or confirmed the above diagnosis. Specimen(s) Received: Gallbladder Clinical History: Biliary dyskinesia Gross Description: ? Received in formalin labelled with proper patient identification (initials J, G) and gallbladder is a focally incised gallbladder (6.5 x 2.7 x 0.9 cm) with an attached segment of cystic duct (1.1 cm in length x 0.4 cm in diameter). A cystic duct lymph node is not present. ? The serosa is smooth, green-yellow and glistening. The mucosa is velvety dark green and the wall is 0.2 cm in thickness. The cystic duct lumen is patent. The cystic duct margin is inked blue. No choleliths are present. ? Two residential sales representative sections and the inked en face cystic duct margin are submitted in 1. ANALI Hart (ASCP) 05/31/2019 9:33 AM End of Report [facility] 05/30/2019 8:50 EDT 05/30/2019 8:50 EDT Nakia Santiago MD PATHOLOGY ORDER JOSÉ [facility] [address] [place] [id number] documented in this encounter Visit Diagnoses Not on filedocumented in this encounter Care Teams Building Supervisor Relationship Specialty Start Date End Date Jamal Padilla MD PCP - General 06/11/15 documented as of this encounter
--- OUTSIDE RECORDS SUMMARY | 2024-05-02 14:22 | XMS_ITS | Encounter Summary ---
Author Organization [facility] Address [address] [place] [address] Care Team Providers Care Endocrinology Teacher Name Role Phone Jamal Padilla MD Primary Care Provider [phone] Encounter Details Date Type Department Care Team (Late st Contact Info) Description 04/12/2021 Lab Requisition [facility] Pathology & Laboratory Medicine - [address] [address] Outr Resulting Lab, Provider Social History Tobacco [...] Comments ZZCOVID-19 TEST [facility] PCR Today 04/11/2021 15:45 EDT COVID-19 TESTING Routine 04/11/2021 15:4 5 EDT documented in this encounter Results * COVID-19 TEST [facility] PCR (04/11/2021 15:45 EDT) Swab ENTIRE NASOPHARYNX / Unknown 04/11/2021 15:45 EDT 04/12/2021 17:09 EDT Provider Outr Resulting Lab MICROBIOLOGY - GENERAL ORDERABLES [facility] [address] [place] [address] * COVID-19 TESTING (04/11/2021 15:45 EDT) COVID-19 rt-PCR Result Negative Negative 04/13/2021 15:02 EDT [facility] Comment: This test has not [...] clinical observations, patient history, and epidemiological information. This test was developed and its performance characteristics determined by [facility]. It has not been cleared or approved by the US Food and Drug Administration. FDA does not require this test to go through premarket FDA review. This test is used for clinical purposes. It should not be regarded as investigational or for research. This laboratory is certified under the Clinical Laboratory Improvement Amendments (CLIA) as qualified to perform high complexity clinical laboratory testing. This test is based on the [facility] COVID-19 Emergency Use Authorization (EUA) assay, with minor modification as defined by the FDA Performed on the Breakero 7 Flex RT-PCR System. This test was developed and its performance characteristics determined by [facility]. It has not been cleared or approved by the [place] Food and Drug Administration. FDA does not require this test to go through premarket FDA review. This test is used for clinical purposes. It should not be regarded as investigational or for research. This laboratory is certified under the Clinical Laboratory Improvement Amendments (CLIA) as qualified to perform high complexity clinical laboratory testing. This test is based on the [facility] COVID-19 Emergency Use Authorization (EUA) assay, with minor modification as defined by the FDA Performed on the Gigturn 7 Pro RT-PCR System. Performing Lab [facility] 04/13/2021 15:02 EDT [facility] Swab 04/11/2021 15:4 5 EDT 04/12/2021 17:09 EDT Provider Outr Resulting Lab MICROBIOLOGY - GENERAL ORDERABLES [facility] [address] [place] [address] documented in this encounter Visit Diagnoses Not on filedocumented in this encounter Care Teams Endocrinology Teacher Relationship Specialty Start Date End Date Jamal Padilla MD PCP - General 06/11/15 documented as of this encounter
--- OUTSIDE RECORDS SUMMARY | 2024-05-02 14:22 | XMS_ITS | Continuity of Care Document ---
Author Organization [facility] Address [address] [place] [address] Care Team Providers Care Tube Cutter Name Role Phone [facility], Tang Alves Primary Care Physician Encounter [facility] Date(s): 12/25/23 - 12/25/[address] [id number] Encounter Diagnosis Syncope(Discharge Diagnosis) - 12/25/23 Closed head injury(Discharge Diagnosis) - 12/25/23 Neck pain(Discharge Diagnosis) - 12/25/23 Hypokalemia(Discharge Diagnosis) - 12/25/23 Hip pain(Discharge Diagnosis) - 12/25/23 Elevated d-dimer(Discharge Diagnosis) - 12/25/23 Discharge Disposition: Home or Self Care Attending Physician: Bobbi Alvarez MD Admitting Physician: Bobbi Alvarez MD Allergies, Adverse Reactions, Alerts Substance Reaction Severity Status BEE VENOM PROTEIN (HONEY BEE) Unknown Active ibuprofen Urticaria Unknown Active metFORMIN Diarrhoea Moderate Active linagliptin Head pain Moderate Active Assessment and Plan Future Scheduled Tests Laboratory* Basic Metabolic Panel 12/28/23 Functional Status 12/25/23 Family Member Travel History No recent t [...] Daily, # 30 tab, 12 Refill(s), Pharmacy: [id number], 157, cm, 04/28/23 13:43:00 EDT, [...] Daily, # 180 tab, 3 Refill(s), Pharmacy: [id number], 154.94, cm, 12/17/23 13:44:00 EDT, Height, 64.86, kg, 12/17/23 13:56:00 EDT, Weight Dosing Start Date: 12/17/23 Status: Ordered Aranza Crum SoloStar 300 units/mL subcutaneous solution 45 units =, Subcutaneous, Daily, 0 Refill(s) Start Date: 04/30/23 Status: Ordered Mental Status 12/25/23 Eye Opening Response [place] Spontaneous ly Best Verbal Response [place] Oriented Best Motor Response Claudia Obeys comman ds [place] Coma Score 15 Problem List Condition Confirmation Course Effective Dates Status Health St atus Informant Chest pain, rule out acute myocardial infarction Confirmed Active CAD (coronary artery disease) Confirmed Active Results Laboratory List Name Date D-Dimer 12/25/23 .Manual Differential (NCTY) 12/25/23 CBC w/ Diff 12/25/23 Comprehensive Metabolic Panel 12/25/23 Most recent to oldest [Reference Range]: 1 WBC [5.0-10.0 x10^3/mcL] 12.6 x10^3/mcL *HI* (12/25/23 7:10 PM) RBC [4.1-5.3 x10^6/mcL] 4.8 x10^6/mcL (12/25/23 7:10 PM) Segs Man [40-75 %] 91 % *HI* (12/25/23 7:10 PM) Lymph Man [20-50 %] 4 % *LOW* (12/25/23 7:10 PM) Quay Man [2-15 %] 2 % (12/25/23 7:10 PM) Eos Man [1-6 %] 1 % (12/25/23 7:10 PM) BUN [7-18 mg/dL] 34 mg/dL *HI* (12/25/23 7:10 PM) Glucose Level [74-106 mg/dL] 304 mg/dL *HI* (12/25/23 7:10 PM) Potassium Level [3.5-5.1 mmol/L] 3.1 mmo l/L *LOW* (12/25/23 7:10 PM) MCV [80.0-96.0 fL] 85.6 fL (12/25/23 7:10 PM) RBC Morph Normal (12/25/23 7:10 PM) AST [15-37 unit/L] 25 unit/L (12/25/23 7:10 PM) ALT [14-59 unit/L] 23 unit/L (12/25/23 7:10 PM) MCHC [31.0-35.0 g/dL] 35.8 g/dL *HI* (12/25/23 7:10 PM) Sodium Level [136-145 mmol/L] 135 mmol/L *LOW* (12/25/23 7:10 PM) Hct [37.0-47.0 %] 41.1 % (12/25/23 7:10 PM) Calcium Level [8.5-10.1 mg/dL] 9.2 mg/dL (12/25/23 7:10 PM) Albumin Level [3.4-5.0 g/dL] 4.0 g/dL (12/25/23 7:10 PM) Protein Total [6.4-8.2 g/dL] 7.6 g/dL (12/25/23 7:10 PM) MCH [26.0-32.0 pg] 30.6 pg (12/25/23 7:10 PM) Bilirubin Total [0.2-1.0 mg/dL] 2.7 mg/d L *HI* (12/25/23 7:10 PM) Hgb [12.0-16.0 g/dL] 14.7 g/dL (12/25/23 7:10 PM) Alk Phos [46-146 unit/L] 90 unit/L (12/25/23 7:10 PM) Band Man [0-5 %] 2 % (12/25/23 7:10 PM) Platelets [130-450 x10^3/mcL] 147 x10^3/ mcL (12/25/23 7:10 PM) CO2 [21-32 mmol/L] 30 mmol/L (12/25/23 7:10 PM) eGFR Non-AA [>=60] 34 *LOW* (12/25/23 7:10 PM) eGFR AA [>=60] 34 *LOW* (12/25/23 7:10 PM) Chloride Level [98-107 mmol/L] 94 mmol/L *LOW* (12/25/23 7:10 PM) RDW-CV [11.5-14.5 %] 12.7 % (12/25/23 7:10 PM) Slide Review Man Diff (12/25/23 7:10 PM) Abs Neut Man 11.7 x10^3/mcL *NA* (12/25/23 7:10 PM) Creatinine Level [0.55-1.02 mg/dL] 1.54 mg/dL *HI* (12/25/23 7:10 PM) Baso Man [0-1 %] 0 % (12/25/23 7:10 PM) D Dimer, (Quant.) [0.00-0.50 mg/L] 9.23 mg/L 1 *HI* (12/25/23 8:26 PM) 1Interpretive Data: Exclusion of PE: Effective April 21, 2012 a new D-Dimer assay [Vingle] is being implemented, this test has a new reference range <0.50 mg/L FEU. This assay was evaluated in a multi-center study to validate the exclusion of PE using fresh specimens collected from 701 consecutive patients presenting in the ED with suspected PE. Study patients were evaluated using the Wells' rules to estimate high, moderate or low probability of PE, a D-Dimer result of <0.50 mg/L FEU was considered negative and a D-Dimer result >/= 0.50 was considered positive for PE. Vital Signs Most recent to oldest [Reference Range]: 1 2 3 Temperature Temporal Artery [36-38 Deg C] 36.0 Deg C (12/25/23 6:32 PM) Peripheral Pulse Rate [60-100 bpm] 79 bpm (12/25/23 9:04 PM) 83 bpm (12/25/23 8:45 PM) 84 bpm (12/25/23 7:26 PM) Heart Rate Monitored [60-100 bpm] 87 bpm (12/25/23 9:38 PM) 80 bpm (12/25/23 9:04 PM) 83 bpm (12/25/23 8:45 PM) Respiratory Rate [12-24 br/min] 14 br/min (12/25/23 9:38 PM) 17 br/min (12/25/23 9:04 PM) 19 br/min (12/25/23 8:45 PM) Blood Pressure [90-140/60-90 mmHg] 116/59mmHg (12/25/23 9:04 PM) 119/59mmHg (12/25/23 8:45 PM) 124/61mmHg (12/25/23 7:26 PM) Mean Arterial Pressure, Cuff [65-140 mmHg] 78 mmHg (12/25/23 9:04 PM) 79 mmHg (12/25/23 8:45 PM) 82 mmHg (12/25/23 7:26 PM) Weight Estimated 64 kg (12/25/23 6:32 PM) Body Mass Index Estimated 26.99 kg/m2 (12/25/23 6:32 PM) Height/Length Estimated 154 cm (12/25/23 6:32 PM) Social History Social History Type Response Tobacco Never tobacco user T obacco Use:. Sex Female Hospital Discharge Instructions Patient Education 12/25/2023 22:02:31 Head Injury, Adult, Joka-bw-Zdhl Head Injury, Adult There are many types of head injuries. They can be as minor as a small bump. Some head injuries canbe worse. Worse injuries include: ??? A strong hit to the head that shakes the brain back and forth, causing damage (concussion). ??? A bruise (contusion) of the brain. This means there is bleeding in the brain that can cause swelling. ??? A cracked skull (skull fracture). ??? Bleeding in the brain that gathers, gets thick (makes a clot), and forms a bump (hematoma). Most problems from a head injury come in the first 24 hours. However, you may still have side effects up to 7???10 days after your injury. It is important to watch your condition for any changes. Youmay need to be watched in the emergency department or urgent care, or you may need to stay in the hospital. What are the causes? There are many possible causes of a head injury. A serious head injury may be caused by: ??? A car accident. ??? Bicycle or motorcycle accidents. ??? Sports injuries. ??? Falls. ??? Being hit by an object. What are the signs or symptoms? Symptoms of a head injury include a bruise, bump, or bleeding where the injury happened. Other physical symptoms may include: ??? Headache. ??? Feeling like you may vomit (nauseous) or vomiting. ??? Dizziness. ??? Blurred or double vision. ??? Being uncomfortable around bright lights or loud noises. ??? Shaking movements that you cannot control (seizures). ??? Feeling tired. ??? Trouble being woken up. ??? Fainting or loss of consciousness. Mental or emotional symptoms may include: ??? Feeling grumpy or cranky. ??? Confusion and memory problems. ??? Having trouble paying attention or concentrating. ??? Changes in eating or sleeping habits. ??? Feeling worried or nervous (anxious). ??? Feeling sad (depressed). How is this treated? Treatment for this condition depends on how severe the injury is and the type of injury you have. The main goal is to prevent problems and to allow the brain time to heal. Mild head injury If you have a mild head injury, you may be sent home, and treatment may include: ??? Being watched. A responsible adult should stay with you for 24 hours after your injury and check on you often. ??? Physical rest. ??? Brain rest. ??? Pain medicines. Severe head injury If you have a severe head injury, treatment may include: ??? Being watched closely. This includes staying in the hospital. ??? Medicines to: ??? Help with pain. ??? Prevent seizures. ??? Help with brain swelling. ??? Protecting your airway and using a machine that helps you breathe (ventilator). ??? Treatments to watch for and manage swelling inside the brain. ??? Brain surgery. This may be needed to: ??? Remove a collection of blood or blood clots. ??? Stop the bleeding. ??? Remove a part of the skull. This allows room for the brain to swell. Follow these instructions at home: Activity ??? Rest. ??? Avoid activities that are hard or tiring. ??? Make sure you get enough sleep. ??? Let your brain rest. Do this by limiting activities that need a lot of thought or attention, such as: ??? Watching TV. ??? Playing memory games and puzzles. ??? Job-related work or homework. ??? Working on the computer, [email or web address], and texting. ??? Avoid activities that could cause another head injury until your doctor says it is okay. This includes playing sports. Having another head injury, especially before the first one has healed, can be dangerous. ??? Ask your doctor when it is safe for you to go back to your normal activities, such as work or school. Ask your doctor for a gzxg-ou-nwgx plan for slowly going back to your normal activities. ??? Ask your doctor when you can drive, ride a bicycle, or use heavy machinery. Do not do these activities if you are dizzy. Lifestyle ??? Do not drink alcohol until your doctor says it is okay. ??? Do not use drugs. ??? If it is harder than usual to remember things, write them down. ??? If you are easily distracted, try to do one thing at a time. ??? Talk with family members or close friends when making important decisions. ??? Tell your friends, family, a trusted co-worker, and boiler plant worker about your injury, symptoms, and limits (restrictions). Have them watch for any problems that are new or getting worse. General instructions ??? Take igre-ryb-rglepwq and prescription medicines only as told by your doctor. ??? Have someone stay with you for 24 hours after your head injury. This person should watch you for any changes in your symptoms and be ready to get help. ??? Keep all follow-up visits as told by your doctor. This is important. How is this prevented? Work on your balance and strength. This can help you avoid falls. ??? Wear a seat belt when you are in a moving vehicle. ??? Wear a helmet when you: ??? Ride a bicycle. ??? Ski. ??? Do any other sport or activity that has a risk of injury. ??? If you drink alcohol: ??? Limit how much you use to: ??? 0???1 drink a day for non women. ??? 0???2 drinks a day for men. ??? Be aware of how much alcohol is in your drink. In the [place] one drink equals one 12 oz bottle of beer (355 mL), one 5 oz glass of wine (148 mL), or one 1?? oz glass of hard liquor (44 mL). ??? Make your home safer by: ??? Getting rid of clutter from the floors and stairs. This includes things that can make you trip. ??? Using grab bars in bathrooms and handrails by stairs. ??? Placing non-slip mats on floors and in bathtubs. ??? Putting more light in dim areas. Where to find more information ??? Centers for Disease Control and Prevention: www.cdc.gov Get help right away if: ??? You have: ??? A very bad headache that is not helped by medicine. ??? Trouble walking or weakness in your arms and legs. ??? Clear or bloody fluid coming from your nose or ears. ??? Changes in how you see (vision). ??? A seizure. ??? More confusion or more grumpy moods. ??? Your symptoms get worse. ??? You are sleepier than normal and have trouble staying awake. ??? You lose your balance. ??? The black centers of your eyes (pupils) change in size. ??? Your speech is slurred. ??? Your dizziness gets worse. ??? You vomit. These symptoms may be an emergency. Do not wait to see if the symptoms will go away. Get medical help right away. Call your local emergency services (911 in the [place] Do not drive yourself to the hospital. Summary ??? Head injuries can be as minor as a small bump. Some head injuries can be worse. ??? Treatment for this condition depends on how severe the injury is and the type of injury you have. ??? Have someone stay with you for 24 hours after your head injury. ??? Ask your doctor when it is safe for you to go back to your normal activities, such as work or school. ??? To prevent a head injury, wear a seat belt in a car, wear a helmet when you use a bicycle, limit your alcohol use, and make your home safer. This information is not intended to replace advice given to you by your health care provider. Make sure you discuss any questions you have with your health care provider. Document Revised: 06/01/2020 Document Reviewed: 06/01/2020 [employer] Patient Education ?? 2022 [employer]. 12/25/2023 22:02:28 Syncope, Adult, Ente-mn-Cyep Syncope, Adult Syncope is when you pass out or faint for a short time. It is caused by a sudden decrease in blood flow to the brain. This can happen for many reasons. It can sometimes happen when seeing blood, getting a shot (injection), or having pain or strong emotions. Most causes of fainting are not dangerous, but in some cases it can be a sign of a serious medical problem. If you faint, get help right away. Call your local emergency services (911 in the [place] Follow these instructions at home: Watch for any changes in your symptoms. Take these actions to stay safe and help with your symptoms: Knowing when you may be about to faint ??? Signs that you may be about to faint include: ??? Feeling dizzy or light-headed. It may feel like the room is spinning. ??? Feeling weak. ??? Feeling like you may vomit (nauseous). ??? Seeing spots or seeing all white or all black. ??? Having cold, clammy skin. ??? Feeling warm and sweaty. ??? Hearing ringing in the ears. ??? If you start to feel like you might faint, sit or lie down right away. If sitting, lower your head down between your legs. If lying down, raise (elevate) your feet above the level of your heart. ??? Breathe deeply and steadily. Wait until all of the symptoms are gone. ??? Have someone stay with you until you feel better. Medicines ??? Take iulc-maj-gzfdvyb and prescription medicines only as told by your doctor. ??? If you are taking blood pressure or heart medicine, sit up and stand up slowly. Spend a few minutes getting ready to sit and then stand. This can help you feel less dizzy. Lifestyle ??? Do not drive, use machinery, or play sports until your doctor says it is okay. ??? Do not drink alcohol. ??? Do not smoke or use any products that contain nicotine or tobacco. If you need help quitting, ask your doctor. ??? Avoid hot tubs and saunas. General instructions ??? Talk with your doctor about your symptoms. You may need to have testing to help find the cause. ??? Drink enough fluid to keep your pee (urine) pale yellow. ??? Avoid standing for a long time. If you must stand for a long time, do movements such as: ??? Moving your legs. ??? Crossing your legs. ??? Flexing and stretching your leg muscles. ??? Squatting. ??? Keep all follow-up visits. Contact a doctor if: ??? You have episodes of near fainting. Get help right away if: ??? You pass out or faint. ??? You hit your head or are injured after fainting. ??? You have any of these symptoms: ??? Fast or uneven heartbeats (palpitations). ??? Pain in your chest, belly, or back. ??? Shortness of breath. ??? You have jerky movements that you cannot control (seizure). ??? You have a very bad headache. ??? You are confused. ??? You have problems with how you see (vision). ??? You are very weak. ??? You have trouble walking. ??? You are bleeding from your mouth or your butt (rectum). ??? You have black or tarry poop (stool). These symptoms may be an emergency. Get help right away. Call your local emergency services (911 int [place] ??? Do not wait to see if the symptoms will go away. ??? Do not drive yourself to the hospital. Summary ??? Syncope is when you pass out or faint for a short time. It is caused by a sudden decrease in blood flow to the brain. ??? Signs that you may be about to faint include feeling dizzy or light-headed, feeling like you may vomit, seeing all white or all black, or having cold, clammy skin. ??? If you start to feel like you might faint, sit or lie down right away. Lower your head if sitting, or raise (elevate) your feet if lying down. Breathe deeply and steadily. Wait until all of the symptoms are gone. This information is not intended to replace advice given to you by your health care provider. Make sure you discuss any questions you have with your health care provider. Document Revised: 11/28/2021 Document Reviewed: 11/28/2021 [employer] Patient Education ?? 2022 [employer]. Follow Up Care 12/25/2023 18:30:34 With:Tang Weiss MD Address: [address] [phone] When:1 week Physician Emergency department Note * Van Khan MD: PERFORM Event Display: ED Note Physician Authored Date: [id number] CRYSTAL BARRIENTOS :1945 Age:78 years Sex:Female Visit Date:12/25/2023 Primary Care Physician: Tang Weiss MD I obtained signout from Dr. Murray pending reassessment of her IV fluids??and??review of CT angiogram and left hip x-ray.?? Patient had a syncopal spell at home, she reports that??she lost 10 pounds in last 3 days??since she started the diuretic.?? She was seen in??cardiology,??on that visit there was no obvious??swelling??noted on exam but patient was adamant that she felt puffy so she was??put on torsemide 40 mg a day.?? She is wearing a Zio patch also because of fainting spells.?? She did hit her head but the CAT scan is normal.?? She is not short of breath but her D-dimer was high so a CT angiogram was done and there is no PE.?? Left hip x-ray as interpreted me is unremarkable. ??After IV fluid she is feeling better.?? Will recommend some Tylenol for??pain, will have her stop her diuretic,??her BUN/creatinine did suggest some element of dehydration.?? Follow-up with her doctor in the next week for reassessment. ??Discharged in improved and stable condition. Images * Final Report * ?? CT Spine Cervical w/o Contrast PROCEDURE INFORMATION:?? Exam: CT Cervical Spine Without Contrast?? Exam date and time: 12/25/2023 7:02 PM?? Age: 78 years old?? Clinical indication: Syncopal fall tenderness upper c spine on plavix? TECHNIQUE:?? Imaging protocol: Computed tomography of the cervical spine without?? contrast.?? Radiation optimization: All CT scans at this facility use at least?? one of these dose optimization techniques: automated exposure?? control; mA and/or kV adjustment per patient size (includes targeted?? exams where dose is matched to clinical indication); or iterative?? reconstruction.? COMPARISON:?? CT SPINE CERVICAL WO CONTRAST 06/11/2022 2:50 PM? FINDINGS:?? Bones: No acute fracture. Slight endplate irregularities and T1 and?? T2 are similar to 06/11/2022. Straightening of the cervical lordosis.?? Unchanged minimal anterolisthesis at C2-C3 minimal retrolisthesis of?? C3-C4. Multilevel degenerative changes in the cervical spine,?? including multilevel degenerative disc disease and facet hypertrophy,?? resulting in varying degrees of spinal canal and neural foraminal?? narrowing. No severe spinal canal stenosis appreciated.? Pharynx: Unremarkable as visualized.?? Lungs: Lung apices are clear.?? Thyroid: Left thyroid lobe is absent. Small densities in the right?? thyroid lobe suggest tiny cysts or nodules. No discrete nodule?? requiring additional workup by size criteria.? Soft tissues: Unremarkable.? IMPRESSION:?? No acute fracture of the cervical spine.? COMMENTS:?? Consistent with the [employer]'s Incidental?? Findings Committee white paper (J Am Teofilo Radiol 2015): In patients?? aged 35 years and older with an incidental thyroid nodule equal to or?? greater than 1.[address], MRI or extrathyroidal US, further?? evaluation with dedicated thyroid US is recommended for patients with?? normal life expectancy and without comorbidities. For smaller nodules?? without suspicious features, no further evaluation or follow up is?? recommended.? Report signed by: Yoni Coon On 12/25/2023 ??20:00:08 ?? [1] ?? CT Brain/Head w/o Contrast PROCEDURE INFORMATION:?? Exam: CT Head Without Contrast?? Exam date and time: 12/25/2023 7:02 PM?? Age: 78 years old?? Clinical indication: Syncopal fall tenderness posterior left head on?? plavix? TECHNIQUE:?? Imaging protocol: Computed tomography of the head without contrast.?? Radiation optimization: All CT scans at this facility use at least?? one of these dose optimization techniques: automated exposure?? control; mA and/or kV adjustment per patient size (includes targeted?? exams where dose is matched to clinical indication); or iterative?? reconstruction.? COMPARISON:?? CT HEAD/BRAIN WO CONTRAST 06/11/2022 2:48 PM? FINDINGS:?? Brain: No convincing acute intracranial hemorrhage or acute loss of?? the malin-white differentiation. Mild foci of white matter?? hypoattenuation, nonspecific, may represent chronic small vessel?? ischemic disease. Bilateral basal ganglia calcifications. No?? extra-axial fluid collection. No midline shift or mass effect.?? Cerebral ventricles: No ventriculomegaly.?? Paranasal sinuses: No substantial mucosal thickening in the?? visualized paranasal sinuses.?? Mastoid air cells: No mastoid effusion.?? Orbital cavities: Bilateral lens replacements.?? Bones: No acute calvarial abnormality.?? Soft tissues: Unremarkable.? IMPRESSION:?? No acute intracranial abnormality.? Report signed by: Yoni Coon On 12/25/2023 ??19:52:41 ? [2] * Final Report * ?? CT Angio Chest PROCEDURE INFORMATION:?? Exam: CTA Chest With Contrast?? Exam date and time: 12/25/2023 9:27 PM?? Age: 78 years old?? Clinical indication: +ddimer SOB? TECHNIQUE:?? Imaging protocol: Computed tomographic angiography of the chest with?? contrast. Exam focused on the arteries.?? 3D rendering (Not supervised by radiologist): MIP and/or 3D?? reconstructed images were created by the technologist.?? Radiation optimization: All CT scans at this facility use at least?? one of these dose optimization techniques: automated exposure?? control; mA and/or kV adjustment per patient size (includes targeted?? exams where dose is matched to clinical indication); or iterative?? reconstruction.?? Contrast material: OMNI 350; Contrast volume: 80 ml; Contrast route:?? INTRAVENOUS (IV); ? COMPARISON:?? CT CTA CHEST W AND/OR WO CONTRAST 04/28/2023 7:19 PM? FINDINGS:?? Pulmonary arteries: Normal. No pulmonary emboli.?? Aorta: Moderate atherosclerotic calcification of the aorta. No?? evidence of aneurysm or dissection.? Lungs: Unremarkable. No consolidation. No masses.?? Pleural spaces: Unremarkable. No pneumothorax. No pleural effusion.?? Heart: Unremarkable. No cardiomegaly. No pericardial effusion.?? Lymph nodes: Unremarkable. No enlarged lymph nodes.? Bones/joints: Moderate degenerative disc changes throughout the?? thoracic spine. No vertebral body compression or acute fracture.?? Soft tissues: Unremarkable.? IMPRESSION:?? No evidence of pulmonary embolus or other acute abnormality in the?? chest. ??Chronic findings as noted. ?? Report signed by: Luis Jalloh On 12/25/2023 ??21:48:58 [3] * Final Report * ?? XR Shoulder Complete 2+ Views Left PROCEDURE INFORMATION:?? Exam: XR Left Shoulder?? Exam date and time: 12/25/2023 7:08 PM?? Age: 78 years old?? Clinical indication: Pain after fall? TECHNIQUE:?? Imaging protocol: Radiologic exam of the left shoulder.?? Views: 2 or more views.? COMPARISON:?? CT SPINE CERVICAL WO CONTRAST 12/25/2023 7:02 PM? FINDINGS:?? Bones/joints: There is moderate widening of the left?? acromioclavicular joint measuring approximately 10 mm. Glenohumeral?? joint appears normal. No significant arthritic changes. No acute?? fracture.?? Soft tissues: Normal.? IMPRESSION:?? Age-indeterminate widening of the left acromioclavicular joint?? raising concern for type 2 AC separation. ?? Report signed by: Luis Jalloh On 12/25/2023 ??20:04:29 ? URL This document has an image ?? [4] * Final Report * ?? CT Brain/Head w/o Contrast PROCEDURE INFORMATION:?? Exam: CT Head Without Contrast?? Exam date and time: 12/25/2023 7:02 PM?? Age: 78 years old?? Clinical indication: Syncopal fall tenderness posterior left head on?? plavix? TECHNIQUE:?? Imaging protocol: Computed tomography of the head without contrast.?? Radiation optimization: All CT scans at this facility use at least?? one of these dose optimization techniques: automated exposure?? control; mA and/or kV adjustment per patient size (includes targeted?? exams where dose is matched to clinical indication); or iterative?? reconstruction.? COMPARISON:?? CT HEAD/BRAIN WO CONTRAST 06/11/2022 2:48 PM? FINDINGS:?? Brain: No convincing acute intracranial hemorrhage or acute loss of?? the malin-white differentiation. Mild foci of white matter?? hypoattenuation, nonspecific, may represent chronic small vessel?? ischemic disease. Bilateral basal ganglia calcifications. No?? extra-axial fluid collection. No midline shift or mass effect.?? Cerebral ventricles: No ventriculomegaly.?? Paranasal sinuses: No substantial mucosal thickening in the?? visualized paranasal sinuses.?? Mastoid air cells: No mastoid effusion.?? Orbital cavities: Bilateral lens replacements.?? Bones: No acute calvarial abnormality.?? Soft tissues: Unremarkable.? IMPRESSION:?? No acute intracranial abnormality.? Report signed by: Yoni Coon On 12/25/2023 ??19:52:41 ?? [5] * Final Report * ?? CT Spine Cervical w/o Contrast PROCEDURE INFORMATION:?? Exam: CT Cervical Spine Without Contrast?? Exam date and time: 12/25/2023 7:02 PM?? Age: 78 years old?? Clinical indication: Syncopal fall tenderness upper c spine on plavix? TECHNIQUE:?? Imaging protocol: Computed tomography of the cervical spine without?? contrast.?? Radiation optimization: All CT scans at this facility use at least?? one of these dose optimization techniques: automated exposure?? control; mA and/or kV adjustment per patient size (includes targeted?? exams where dose is matched to clinical indication); or iterative?? reconstruction.? COMPARISON:?? CT SPINE CERVICAL WO CONTRAST 06/11/2022 2:50 PM? FINDINGS:?? Bones: No acute fracture. Slight endplate irregularities and T1 and?? T2 are similar to 06/11/2022. Straightening of the cervical lordosis.?? Unchanged minimal anterolisthesis at C2-C3 minimal retrolisthesis of?? C3-C4. Multilevel degenerative changes in the cervical spine,?? including multilevel degenerative disc disease and facet hypertrophy,?? resulting in varying degrees of spinal canal and neural foraminal?? narrowing. No severe spinal canal stenosis appreciated.? Pharynx: Unremarkable as visualized.?? Lungs: Lung apices are clear.?? Thyroid: Left thyroid lobe is absent. Small densities in the right?? thyroid lobe suggest tiny cysts or nodules. No discrete nodule?? requiring additional workup by size criteria.? Soft tissues: Unremarkable.? IMPRESSION:?? No acute fracture of the cervical spine.? COMMENTS:?? Consistent with the [employer]'s Incidental?? Findings Committee white paper (J Am Teofilo Radiol 2015): In patients?? aged 35 years and older with an incidental thyroid nodule equal to or?? greater than 1.[address], MRI or extrathyroidal US, further?? evaluation with dedicated thyroid US is recommended for patients with?? normal life expectancy and without comorbidities. For smaller nodules?? without suspicious features, no further evaluation or follow up is?? recommended.? Report signed by: Yoni Coon On 12/25/2023 ??20:00:08 ? URL [6] [1]??CT Spine Cervical w/o Contrast; [employer], Generated 12/25/2023 19:02 EDT [2]??CT Brain/Head w/o Contrast; [employer], Generated 12/25/2023 19:02 EDT [3]??CT Angio Chest; [employer], Generated 12/25/2023 21:27 EDT [4]??XR Shoulder Complete 2+ Views Left; [employer], Generated 12/25/2023 19:08 EDT [5]??CT Brain/Head w/o Contrast; [employer], Generated 12/25/2023 19:02 EDT [6]??CT Spine Cervical w/o Contrast; [employer], Generated 12/25/2023 19:02 EDT Electronically Signed on 12/25/2023 23:01 EDT Van Khan MD * Tamy Murray MD: PERFORM Event Display: ED Note Physician Authored Date: [id number] CRYSTAL BARRIENTOS :1945 Age:78 years Sex:Female Visit Date:12/25/2023 Primary Care Physician: Anuradha [facility], Tang Alves MD Basic Information Time Seen: Tamy Murray MD / 12/25/2023 18:41 Chief Complaint I passed out I got dizzy and fell in the kitchen I have been lightheaded since before I got the heart monitor put on which was a few days ago. PT has a 2 week zio patch. PT did hit her head, vomitedand neck pain. C collar applied on arrival [facility] 15 History Of Present Illness: Patient??had gotten up to use her walker to head into her kitchen??she states the next thing??she knew she was on the floor waking up.?? Patient is still wearing a Zio patch??she has a 2-week Zio patch on.Patient reports cardiology had her put the Zio patch on??because of dizziness and not feeling well.?? Patient denies any ear nose or throat pain patient does have??a contusion on the left posterior aspect of her head??from where she fell this evening??patient is on Plavix??no chest pain??no cough??no new shortness of breath??no extremity edema??no tingling no numbness no skin rashes no nausea no vomiting??no diarrhea no urinary symptoms??patient reports she has some left shoulder pain fromwhen she fell.?? Patient has some laryngitis that she blames on her??great granddaughter. Review of Systems: see hpi for ros Physical Exam Vitals & Measurements T:??36.0?C ??(Temporal Artery)?? HR:??79??(Peripheral)?? HR:??80??(Monitored)?? RR:??17?? BP:??116/59?? SpO2:??95%?? HT:??154??cm?? WT:??64??kg??(Estimated)?? BMI:??26.99?? Pain Score:??10?? O2 Therapy:??Room air?? Orthostatic Vitals: Pulse Supine: 84 bpm (12/25/23 20:14:00) Pulse Sittin bpm (12/25/23 20:14:00) Pulse Standin bpm (12/25/23 20:14:00) Systolic Blood Pressure Supine: 110 mmHg (12/25/23 20:14:00) Diastolic Blood Pressure Supine: 60 mmHg (12/25/23 20:14:00) Systolic Blood Pressure Sittin mmHg (12/25/23 20:14:00) Diastolic Blood Pressure Sitting:??52 mmHg??Low (12/25/23 20:14:00) Systolic Blood Pressure Standin mmHg (12/25/23 20:14:00) Diastolic Blood Pressure Standin mmHg (12/25/23 20:14:00) General: Alert and oriented, well nourished,?No??acute distress Eye: PER?Normal??conjunctiva,??No??scleral icterus HENT: Normocephalic,??nontraumatic??Normal hearing Neck: Supple, positive C3-C4 area tenderness?? Lungs: Clear to auscultation,?Non-labored?? respiration Heart:?Normal?? rate,?Regular??rhythm,?No??murmur,?No??gallop,?No??edema Chest: wall excursion wnl no abnormal movements no obvious deformities Abdomen: Soft, non-tender, non-distended, No??masses Musculoskeletal:?positive left shoulder tenderness and left??clavicle area tenderness no??swelling??positive left hip area pain Skin: Skin is warm, dry and pink,?No??rashes,?No??lesions Neurologic: Awake, alert and oriented X4 Psychiatric: Cooperative, appropriate mood and affect Medical Decision Making: For MDM please see under assessment and plan Procedure No Qualifying Data Assessment/Plan 1.??Syncope??R55 ??Patient does report a 10 pound weight??loss??and thinks these are likely due to the diuretics shewas positive orthostatic here in the emergency department. ??Patient has received 500 cc of normal saline followed by one 1 L of normal saline with 20 mill equivalents of potassium.?? Patient will likely need to decrease??her diuretics??from 40 mg to 20 mg/day??and make sure she drinks plenty of fluids. 2.??Closed head injury??S09.90XA ??CT scan and exam is reassuring??expect patient will do fine. 3.??Neck pain??M54.2 ??CT scan is??negative??and exam is reassuring??c-collar is removed 4.??Hypokalemia??E87.6 ??Patient's potassium was 3.1??patient receiving??20 mill equivalents potassium via the??1 L of normal saline. 5.??Hip pain??M25.559 ??Left hip pain??left??hip images??are pending.?? 6.??Elevated d-dimer??R79.89 ??Positive D-dimer of 9.23 patient has had several falls lately??CTA chest is pending.?? sign out given to Dr Khan Orders: NS with potassium chloride 20 mEq/L 1,000 mL, Total Volume (mL): 1,000, 1,000 mL, Soln-IV, IV, 500 mL/hr, Start Date: 12/25/23 20:15:00 EDT, 64.86 kg, Populate Charting Weight From Order, 1.67, m2 CT Angio Chest, 12/25/23 21:06:00 EDT, Stat, Reason: +ddimer sob, Transport Mode: Stretcher, Exam to be performed outside organization? XR Hip 2-3 Views w/AP Pelvis Left, 12/25/23 21:00:00 EDT, Stat, Reason: pain, Transport Mode: Stretcher, Exam to be performed outside organization? Medication Reconciliation Unchanged albuterol (ProAir HFA 90 mcg/inh inhalation aerosol)2 Puffs Inhale (breathe in) every 4 hours as needed as needed for wheezing. ?? [id number] Milligrams every day. ?? clopidogrel (Plavix 75 mg oral tablet)1 tab Oral (given by mouth) every day. Refills: 12. ?? colchicine (colchicine 0.6 mg oral tablet)2 tab Oral (given by mouth) once. at first sign of gout flare followed by 1 tablet in 1 hour. ?? FLUoxetine (FLUoxetine 20 mg oral capsule)1 Capsules Oral (given by mouth) every day. ?? insulin glargine (Toujeo Max SoloStar 300 units/mL subcutaneous solution)45 Units Subcutaneous (under the skin) every day. ?? insulin lispro (HumaLOG Cartridge 100 units/mL injectable solution)10 Units Subcutaneous (under theskin) 3 times a day before meals. if eating more increase by 2 units if eating less decrease by 2 units. ?? loratadine (Claritin Reditab 5 mg oral tablet, disintegrating)1 tab Oral (given by mouth) every dayas needed as needed for allergy symptoms. ?? metoprolol (metoprolol succinate 50 mg oral capsule, extended release)1 Capsules Oral (given by mouth) every day. ?? omeprazole (omeprazole 20 mg oral delayed release capsule)1 Capsules Oral (given by mouth) every day as needed heartburn. ?? pyridoxine (pyridoxine 50 mg oral tablet)1 tab Oral (given by mouth) every day as needed headache. ?? rosuvastatin (rosuvastatin 40 mg oral tablet)1 tab Oral (given by mouth) every day. ?? torsemide (torsemide 20 mg oral tablet)2 tab Oral (given by mouth) every day. Refills: 3. Problem List/Past Medical History Ongoing CAD (coronary artery disease) Chest pain, rule out acute myocardial infarction Historical No qualifying data Medication Administration Given NS with potassium chloride 20 mEq/L, 1000 mL, IV NS bolus, 500 mL, Hydration Bolus Allergies linagliptin??(Head pain) metFORMIN??(Diarrhoea) BEE VENOM PROTEIN (HONEY BEE) ibuprofen??(Urticaria) Social History Alcohol Never Electronic Cigarette/Vaping Electronic Cigarette Use: Never. Substance Use Never Tobacco Never tobacco user Tobacco Use:. Lab Results CBC and Differential?? LATEST RESULTS?? HISTORICAL RESULTS?? WBC?? 12/25/23 19:10?? 12.6 ??High?? 04/30/23?? 5.0?? RBC?? 12/25/23 19:10?? 4.8?? 04/30/23?? 4.1?? Hgb?? 12/25/23 19:10?? 14.7?? 04/30/23?? 12.6?? Hct?? 12/25/23 19:10?? 41.1?? 04/30/23?? 36.6 ??Low?? MCV?? 12/25/23 19:10?? 85.6?? 04/30/23?? 89.9?? MCH?? 12/25/23 19:10?? 30.6?? 04/30/23?? 31.0?? MCHC?? 12/25/23 19:10?? 35.8 ??High?? 04/30/23?? 34.4?? RDW-CV?? 12/25/23 19:10?? 12.7?? 04/30/23?? 12.8?? Platelets?? 12/25/23 19:10?? 147?? 04/30/23?? 131?? Segs Man?? 12/25/23 19:10?? 91 ??High? Lymph Man?? 12/25/23 19:10?? 4 ??Low? Quay Man?? 12/25/23 19:10?? 2? Eos Man?? 12/25/23 19:10?? 1? Baso Man?? 12/25/23 19:10?? 0? Band Man?? 12/25/23 19:10?? 2? Abs Neut Man?? 12/25/23 19:10?? 11.7? RBC Morph?? 12/25/23 19:10?? Normal? Slide Review?? 12/25/23 19:10?? Man Diff?? 11/14/22?? Not Indicated? Coagulation?? LATEST RESULTS?? HISTORICAL RESULTS?? D Dimer, (Quant.)?? 12/25/23 20:26?? 9.23 ??High?? 04/28/23?? 2.41 ??High? Routine Chemistry?? LATEST RESULTS?? HISTORICAL RESULTS?? Sodium Level?? 12/25/23 19:10?? 135 ??Low?? 04/30/23?? 141?? Potassium Level?? 12/25/23 19:10?? 3.1 ??Low?? 04/30/23?? 4.3?? Chloride Level?? 12/25/23 19:10?? 94 ??Low?? 04/30/23?? 107?? CO2?? 12/25/23 19:10?? 30?? 04/30/23?? 28?? Alk Phos?? 12/25/23 19:10?? 90?? 04/28/23?? 111?? AST?? 12/25/23 19:10?? 25?? 04/28/23?? 13 ??Low?? ALT?? 12/25/23 19:10?? 23?? 04/28/23?? 21?? BUN?? 12/25/23 19:10?? 34 ??High?? 04/30/23?? 17?? Glucose Level?? 12/25/23 19:10?? 304 ??High?? 04/30/23?? 210 ??High?? Creatinine Level?? 12/25/23 19:10?? 1.54 ??High?? 04/30/23?? 1.04 ??High?? eGFR AA?? 12/25/23 19:10?? 34 ??Low?? 04/30/23?? 55 ??Low?? eGFR Non-AA?? 12/25/23 19:10?? 34 ??Low?? 04/30/23?? 55 ??Low?? Calcium Level?? 12/25/23 19:10?? 9.2?? 04/30/23?? 8.4 ??Low?? Protein Total?? 12/25/23 19:10?? 7.6?? 04/28/23?? 7.0?? Albumin Level?? 12/25/23 19:10?? 4.0?? 04/28/23?? 3.5?? Bilirubin Total?? 12/25/23 19:10?? 2.7 ??High?? 04/28/23?? 0.7? Electronically Signed on 12/25/2023 21:21 EDT Tamy Murray MD Emergency department Discharge instructions * Van Khan MD: PERFORM Event Display: ED Discharge Information Authored Date: [id number] FLOYD CRYSTAL Lius :1945 Age:78 years Sex:Female Visit Date:12/25/2023 Primary Care Physician: Tang Weiss MD Discharge Instructions We would like to thank you for allowing us to assist you with your healthcare needs. The following includes patient education materials and information regarding your injury/illness. Diagnosis from Today's Visit Syncope Closed head injury Neck pain Hypokalemia Hip pain Elevated d-dimer Discharge Vitals Temperature??(Temporal Artery) 96.8 ??F (36.0 ??C) Heart Rate??(Monitored) 87 Respiratory Rate?? 14 Blood Pressure?? 116/59?? Blood Pressure?? 97/52(Sitting)?? Blood Pressure?? 93/80(Standing)?? Blood Pressure?? 110/60(Supine)?? SpO2?? 95% Height?? 60.63 in (154 cm) Weight??(Estimated) 141.12 lb (64 kg) BMI?? 26.99 Allergies linagliptin??(Head pain) metFORMIN??(Diarrhoea) BEE VENOM PROTEIN (HONEY BEE) ibuprofen??(Urticaria) What to Do Next Instructions from Your Care Team I recommend stopping your??diuretic??torsemide.?? Move around slowly,??follow-up with your doctor in the next week for recheck. You Need to Schedule the Following Appointments Follow Up with??Tang Weiss MD When:??Within 1 week Where: [address] [phone] You were treated today on an emergency [...] Much When Why Instructions Next Dose Unchanged albuterol (ProAir HFA 90 mcg/ inh [...] tab Oral (given by mouth) Every day Unchanged torsemide (torsemide 20 mg oral tablet) 2 tab Oral (given by mouth) Every day [employer] Head Injury, Adult There are many types of head injuries. They can be as minor as a small bump. Some head injuries canbe worse. Worse injuries include: ? A strong hit to the head that shakes the brain back and forth, causing damage (concussion). ? A bruise (contusion) of the brain. This means there is bleeding in the brain that can cause swelling. ? A cracked skull (skull fracture). ? Bleeding in the brain that gathers, gets thick (makes a clot), and forms a bump (hematoma). Most problems from a head injury come in the first 24 hours. However, you may still have side effects up to 7???10 days after your injury. It is important to watch your condition for any changes. Youmay need to be watched in the emergency department or urgent care, or you may need to stay in the hospital. What are the causes? There are many possible causes of a head injury. A serious head injury may be caused by: ? A car accident. ? Bicycle or motorcycle accidents. ? Sports injuries. ? Falls. ? Being hit by an object. What are the signs or symptoms? Symptoms of a head injury include a bruise, bump, or bleeding where the injury happened. Other physical symptoms may include: ? Headache. ? Feeling like you may vomit (nauseous) or vomiting. ? Dizziness. ? Blurred or double vision. ? Being uncomfortable around bright lights or loud noises. ? Shaking movements that you cannot control (seizures). ? Feeling tired. ? Trouble being woken up. ? Fainting or loss of consciousness. Mental or emotional symptoms may include: ? Feeling grumpy or cranky. ? Confusion and memory problems. ? Having trouble paying attention or concentrating. ? Changes in eating or sleeping habits. ? Feeling worried or nervous (anxious). ? Feeling sad (depressed). How is this treated? Treatment for this condition depends on how severe the injury is and the type of injury you have. The main goal is to prevent problems and to allow the brain time to heal. Mild head injury If you have a mild head injury, you may be sent home, and treatment may include: ? Being watched. A responsible adult should stay with you for 24 hours after your injury and check onyou often. ? Physical rest. ? Brain rest. ? Pain medicines. Severe head injury If you have a severe head injury, treatment may include: ? Being watched closely. This includes staying in the hospital. ? Medicines to: ? Help with pain. ? Prevent seizures. ? Help with brain swelling. ? Protecting your airway and using a machine that helps you breathe (ventilator). ? Treatments to watch for and manage swelling inside the brain. ? Brain surgery. This may be needed to: ? Remove a collection of blood or blood clots. ? Stop the bleeding. ? Remove a part of the skull. This allows room for the brain to swell. Follow these instructions at home: Activity ? Rest. ? Avoid activities that are hard or tiring. ? Make sure you get enough sleep. ? Let your brain rest. Do this by limiting activities that need a lot of thought or attention, such as: ? Watching TV. ? Playing memory games and puzzles. ? Job-related work or homework. ? Working on the computer, social media, and texting. ? Avoid activities that could cause another head injury until your doctor says it is okay. This includes playing sports. Having another head injury, especially before the first one has healed, can be dangerous. ? Ask your doctor when it is safe for you to go back to your normal activities, such as work or school. Ask your doctor for a rsmh-[id number] plan for slowly going back to your normal activities. ? Ask your doctor when you can drive, ride a bicycle, or use heavy machinery. Do not do these activities if you are dizzy. Lifestyle ? Do not drink alcohol until your doctor says it is okay. ? Do not use drugs. ? If it is harder than usual to remember things, write them down. ? If you are easily distracted, try to do one thing at a time. ? Talk with family members or close friends when making important decisions. ? Tell your friends, family, a trusted co-worker, and boiler plant worker about your injury, symptoms, and limits (restrictions). Have them watch for any problems that are new or getting worse. General instructions ? Take oqqd-[id number] and prescription medicines only as told by your doctor. ? Have someone stay with you for 24 hours after your head injury. This person should watch you for any changes in your symptoms and be ready to get help. ? Keep all follow-up visits as told by your doctor. This is important. How is this prevented? Work on your balance and strength. This can help you avoid falls. ? Wear a seat belt when you are in a moving vehicle. ? Wear a helmet when you: ? Ride a bicycle. ? Ski. ? Do any other sport or activity that has a risk of injury. ? If you drink alcohol: ? Limit how much you use to: ? 0???1 drink a day for non women. ? 0???2 drinks a day for men. ? Be aware of how much alcohol is in your drink. In the [place] one drink equals one 12 oz bottle of beer (355 mL), one 5 oz glass of wine (148 mL), or one 1?? oz glass of hard liquor (44 mL). ? Make your home safer by: ? Getting rid of clutter from the floors and stairs. This includes things that can make you trip. ? Using grab bars in bathrooms and handrails by stairs. ? Placing non-slip mats on floors and in bathtubs. ? Putting more light in dim areas. Where to find more information ? Centers for Disease Control and Prevention: www.cdc.gov Get help right away if: ? You have: ? A very bad headache that is not helped by medicine. ? Trouble walking or weakness in your arms and legs. ? Clear or bloody fluid coming from your nose or ears. ? Changes in how you see (vision). ? A seizure. ? More confusion or more grumpy moods. ? Your symptoms get worse. ? You are sleepier than normal and have trouble staying awake. ? You lose your balance. ? The black centers of your eyes (pupils) change in size. ? Your speech is slurred. ? Your dizziness gets worse. ? You vomit. These symptoms may be an emergency. Do not wait to see if the symptoms will go away. Get medical help right away. Call your local emergency services (911 in the [place] Do not drive yourself to the hospital. Summary ? Head injuries can be as minor as a small bump. Some head injuries can be worse. ? Treatment for this condition depends on how severe the injury is and the type of injury you have. ? Have someone stay with you for 24 hours after your head injury. ? Ask your doctor when it is safe for you to go back to your normal activities, such as work or school. ? To prevent a head injury, wear a seat belt in a car, wear a helmet when you use a bicycle, limit your alcohol use, and make your home safer. This information is not intended to replace advice given to you by your health care provider. Make sure you discuss any questions you have with your health care provider. Document Revised: 06/01/2020 Document Reviewed: 06/01/2020 [employer] Patient Education ?? [employer] Syncope, Adult Syncope is when you pass out or faint for a short time. It is caused by a sudden decrease in blood flow to the brain. This can happen for many reasons. It can sometimes happen when seeing blood, getting a shot (injection), or having pain or strong emotions. Most causes of fainting are not dangerous, but in some cases it can be a sign of a serious medical problem. If you faint, get help right away. Call your local emergency services (911 in the [place] Follow these instructions at home: Watch for any changes in your symptoms. Take these actions to stay safe and help with your symptoms: Knowing when you may be about to faint ? Signs that you may be about to faint include: ? Feeling dizzy or light-headed. It may feel like the room is spinning. ? Feeling weak. ? Feeling like you may vomit (nauseous). ? Seeing spots or seeing all white or all black. ? Having cold, clammy skin. ? Feeling warm and sweaty. ? Hearing ringing in the ears. ? If you start to feel like you might faint, sit or lie down right away. If sitting, lower your head down between your legs. If lying down, raise (elevate) your feet above the level of your heart. ? Breathe deeply and steadily. Wait until all of the symptoms are gone. ? Have someone stay with you until you feel better. Medicines ? Take trpl-xzs-qxbqeby and prescription medicines only as told by your doctor. ? If you are taking blood pressure or heart medicine, sit up and stand up slowly. Spend a few minutesgetting ready to sit and then stand. This can help you feel less dizzy. Lifestyle ? Do not drive, use machinery, or play sports until your doctor says it is okay. ? Do not drink alcohol. ? Do not smoke or use any products that contain nicotine or tobacco. If you need help quitting, ask your doctor. ? Avoid hot tubs and saunas. General instructions ? Talk with your doctor about your symptoms. You may need to have testing to help find the cause. ? Drink enough fluid to keep your pee (urine) pale yellow. ? Avoid standing for a long time. If you must stand for a long time, do movements such as: ? Moving your legs. ? Crossing your legs. ? Flexing and stretching your leg muscles. ? Squatting. ? Keep all follow-up visits. Contact a doctor if: ? You have episodes of near fainting. Get help right away if: ? You pass out or faint. ? You hit your head or are injured after fainting. ? You have any of these symptoms: ? Fast or uneven heartbeats (palpitations). ? Pain in your chest, belly, or back. ? Shortness of breath. ? You have jerky movements that you cannot control (seizure). ? You have a very bad headache. ? You are confused. ? You have problems with how you see (vision). ? You are very weak. ? You have trouble walking. ? You are bleeding from your mouth or your butt (rectum). ? You have black or tarry poop (stool). These symptoms may be an emergency. Get help right away. Call your local emergency services ([address] [facility] [place] ? Do not wait to see if the symptoms will go away. ? Do not drive yourself to the hospital. Summary ? Syncope is when you pass out or faint for a short time. It is caused by a sudden decrease in blood flow to the brain. ? Signs that you may be about to faint include feeling dizzy or light-headed, feeling like you may vomit, seeing all white or all black, or having cold, clammy skin. ? If you start to feel like you might faint, sit or lie down right away. Lower your head if sitting, or raise (elevate) your feet if lying down. Breathe deeply and steadily. Wait until all of the symptoms are gone. This information is not intended to replace advice given to you by your health care provider. Make sure you discuss any questions you have with your health care provider. Document Revised: 11/28/2021 Document Reviewed: 11/28/2021 [employer] Patient Education ?? 2022 [employer] Tests Performed Medications and Immunizations Administered Given NS with potassium chloride 20 mEq/L, 1000 mL, IV NS bolus, 500 mL, Hydration Bolus Lab Test Name Test Result Date/Time WBC 12.6 x10^3/mcL 12/25/2023 19:10 EDT RBC 4.8 x10^6/mcL 12/25/2023 19:10 EDT Hgb 14.7 g/dL 12/25/2023 19:10 EDT Hct 41.1 % 12/25/2023 19:10 EDT MCV 85.6 fL 12/25/2023 19:10 EDT MCH 30.6 pg 12/25/2023 19:10 EDT MCHC 35.8 g/dL 12/25/2023 19:10 EDT RDW-CV 12.7 % 12/25/2023 19:10 EDT Platelets 147 x10^3/mcL 12/25/2023 19:10 EDT Segs Man 91 % 12/25/2023 19:10 EDT Lymph Man 4 % 12/25/2023 19:10 EDT Quay Man 2 % 12/25/2023 19:10 EDT Eos Man 1 % 12/25/2023 19:10 EDT Baso Man 0 % 12/25/2023 19:10 EDT Band Man 2 % 12/25/2023 19:10 EDT Abs Neut Man 11.7 x10^3/mcL 12/25/2023 19:10 EDT RBC Morph Normal 12/25/2023 19:10 EDT Slide Review Man Diff 12/25/2023 19:10 EDT D Dimer, (Quant.) 9.23 mg/L 12/25/2023 20:26 EDT Sodium Level 135 mmol/L 12/25/2023 19:10 EDT Potassium Level 3.1 mmol/L 12/25/2023 19:10 EDT Chloride Level 94 mmol/L 12/25/2023 19:10 EDT CO2 30 mmol/L 12/25/2023 19:10 EDT Alk Phos 90 unit/L 12/25/2023 19:10 EDT AST 25 unit/L 12/25/2023 19:10 EDT ALT 23 unit/L 12/25/2023 19:10 EDT BUN 34 mg/dL 12/25/2023 19:10 EDT Glucose Level 304 mg/dL 12/25/2023 19:10 EDT Creatinine Level 1.54 mg/dL 12/25/2023 19:10 EDT eGFR AA 34 12/25/2023 19:10 EDT eGFR Non-AA 34 12/25/2023 19:10 EDT Calcium Level 9.2 mg/dL 12/25/2023 19:10 EDT Protein Total 7.6 g/dL 12/25/2023 19:10 EDT Albumin Level 4.0 g/dL 12/25/2023 19:10 EDT Bilirubin Total 2.7 mg/dL 12/25/2023 19:10 EDT Patient/Ui Engineer Signature Patient Name:CRYSTAL BARRIENTOS I have received this information and my questions have been answered. Patient/Ui Engineer Name: Patient/Ui Engineer Signature: Relationship to Patient: Witness Name/Signature: Date: Electronically Signed on: 12/25/2023 23:05 EDTSigned by:MICHAEL Patient Care team information Care Team Personnel Name: Tang Weiss MD Position: No Access Member Role: Primary Care Physician Address: Address: [address] [address]- Care Team Related Persons Name: DENNIS FRAGA
--- OUTSIDE RECORDS SUMMARY | 2024-05-02 14:22 | XMS_ITS | Encounter Summary ---
Author Organization [facility] Address [address] [place] [address] Care Team Providers Care Plasterer Tender Name Role Phone Jamal Padilla MD Primary Care Provider Encounter Details Date Type Department Care Team (Late st Contact Info) Description 03/09/2020 Lab Requisition [facility] Pathology & Laboratory Medicine - [address] [id number] Outr Resulting Lab, Provider Social History Tobacco [...] Procedure Name Priority Date/Time Associated Diagnosis Comments DO NOT ORDER STANDALONE - BROAD COVID TEST Today 03/09/2020 10:09 EDT COVID-19 TESTING Routine 03/09/2020 10:0 9 EDT documented in this encounter Results * DO NOT ORDER STANDALONE - BROAD COVID TEST (03/09/2020 10:09 EDT) COVID-19 rt-PCR Result NEGATIVE Negative 03/11/2020 6:45 EDT [facility] Comment: 2019-novel Coronavirus (2019-nCoV) not detected by the qRT-PCR assay. Consider testing for other respiratory viruses or re-collecting for 2019-nCoV testing. Note: Optimum timing for peak viral levels during infections caused by 2019-nCoV have not been determined. Collection of multiple specimens from the same patient may be necessary to detect the virus. Limitations Positive results are indicative of active infection with SARS-CoV-2 but do not rule out bacterial infection or co-infection with other viruses. The agent detected may not be the definite cause of disease. In addition, detection of viral RNA may not indicate the presence of infectious virus or that SARS-CoV-2 is the causative agent for clinical symptoms. Negative results do not preclude SARS-CoV-2 infection and should not be used as the sole basis for patient management decisions. Negative results must be combined with clinical observations, patient history, and epidemiological information. False negative results may also occur if amplification inhibitors are present in the specimen or if inadequate numbers of organisms are present in the specimen. Optimum specimen types and timing for peak viral levels during infections caused by SARS-CoV-2 have not been fully determined. Collection of multiple specimens (types and time points) from the same patient may be necessary to detect the virus. The test was validated for use with upper respiratory specimens obtained via nasopharyngeal or oropharyngeal swabs in VTM, UTM, M4, M5, M6, saline, and MTM media. The performance of this test has not been established for other specimens. Specimens collected using other FDA recommended Specimen Collection Materials listed in the FDA COVID-19 [employer] communication (October 27, 2019) are processed with the caveat that they were not all validated for use with this test and the result must be interpreted in this context. Furthermore, a false negative results may occur if a specimen is improperly collected, transported or handled. If the virus mutates in the RT-PCR target region, SARS-CoV-2 may not be detected or may be detected less predictably. Inhibitors or other types of interference may produce a false negative result. An interference study evaluating the effect of common cold medications was not performed. This test is not FDA-cleared but its performance characteristics were established by our CLIA-certified, CAP-accredited, high complexity laboratory in accordance with CLIA regulations, [employer] (CAP) guidelines (Oct 20, 2019), and FDA guidance (Oct 01, 2019). This test is only for use under the Food and Drug Administration's Emergency Use Authorization. Swab ENTIRE NASOPHARYNX / Unknown 03/09/2020 10:09 EDT 03/09/2020 21:07 EDT Provider Outr Resulting Lab MICROBIOLOGY - GENERAL ORDERABLES [facility] [place] * COVID-19 TESTING (03/09/2020 10:09 EDT) COVID-19 rt-PCR Result NEGATIVE Negative 03/11/2020 7:24 EDT [facility] Comment: 2019-novel Coronavirus (2019-nCoV) not detected by the qRT-PCR assay. Consider testing for other respiratory viruses or re-collecting for 2019-nCoV testing. Note: Optimum timing for peak viral levels during infections caused by 2019-nCoV have not been determined. Collection of multiple specimens from the same patient may be necessary to detect the virus. Limitations Positive results are indicative of active infection with SARS-CoV-2 but do not rule out bacterial infection or co-infection with other viruses. The agent detected may not be the definite cause of disease. In addition, detection of viral RNA may not indicate the presence of infectious virus or that SARS-CoV-2 is the causative agent for clinical symptoms. Negative results do not preclude SARS-CoV-2 infection and should not be used as the sole basis for patient management decisions. Negative results must be combined with clinical observations, patient history, and epidemiological information. False negative results may also occur if amplification inhibitors are present in the specimen or if inadequate numbers of organisms are present in the specimen. Optimum specimen types and timing for peak viral levels during infections caused by SARS-CoV-2 have not been fully determined. Collection of multiple specimens (types and time points) from the same patient may be necessary to detect the virus. The test was validated for use with upper respiratory specimens obtained via nasopharyngeal or oropharyngeal swabs in VTM, UTM, M4, M5, M6, saline, and MTM media. The performance of this test has not been established for other specimens. Specimens collected using other FDA recommended Specimen Collection Materials listed in the FDA COVID-19 [employer] communication (October 27, 2019) are processed with the caveat that they were not all validated for use with this test and the result must be interpreted in this context. Furthermore, a false negative results may occur if a specimen is improperly collected, transported or handled. If the virus mutates in the RT-PCR target region, SARS-CoV-2 may not be detected or may be detected less predictably. Inhibitors or other types of interference may produce a false negative result. An interference study evaluating the effect of common cold medications was not performed. This test is not FDA-cleared but its performance characteristics were established by our CLIA-certified, CAP-accredited, high complexity laboratory in accordance with CLIA regulations, [employer] [employer] (CAP) guidelines (Oct 20, 2019), and FDA guidance (Oct 01, 2019). This test is only for use under the Food and Drug Administration's Emergency Use Authorization. Performing Lab [employer] 03/11/2020 7:24 EDT [facility] Swab 03/09/2020 10:0 9 EDT 03/09/2020 21:07 EDT Provider Outr Resulting Lab MICROBIOLOGY - GENERAL ORDERABLES [facility] [address] [place] [id number] [place] [address] LABORATORY [place], [place] documented in this encounter Visit Diagnoses Not on filedocumented in this encounter Care Teams Plasterer Tender Relationship Specialty Start Date End Date Jamal Padilla MD PCP - General 06/11/15 documented as of this encounter
--- OUTSIDE RECORDS SUMMARY | 2024-05-02 14:22 | XMS_ITS | Encounter Summary ---
Author Organization [facility] Address [address] [place] [address] Care Team Providers Care Strainer Tender Name Role Phone Unavailable Primary Care Provider Unavailabl e Encounter Details Date Type Department Care Team (Latest Contact Info) Description 02/04/2001 8:21 EDT - 02/04/2001 11:[address] [facility] [address] [place] [address] Alejandro Hare MD [address] [place] [phone] Discharge Disposition: Auto Discharge Social History Tobacco Use Types Packs/Day Years Used Date Smoking Tobacco: Never Assessed Sex and Gender Information Value Date Recorded Sex Assigned at Not on file Gender Identity Not on file Sexual Orientation Not on file documented as of this encounter Discharge Disposition Disposition Code Departure Means Destination Auto Discharge documented in this encounter Plan of Treatment Not on file documented as of this encounter Procedures Procedure Name Priority Date/Time Associated Diagnosis Comments WRIST 2 VIEWS Routine 02/04/2001 13:28 EDT MR EXTREMITY WRIST WO CONTRAST Routine 02/04/2001 10:28 EDT documented in this encounter Results * WRIST 2 VIEWS (02/04/2001 13:28 EDT) Anatomical Region Laterality Modality Other 02/04/2001 13:2 8 EDT Impressions 06/22/2009 1:17 EST IMPRESSION: Osteoarthritis. /judith Narrative 06/22/2009 1:17 EST pain, r/o oa RIGHT WRIST: 02/04/01. HISTORY: Pain. Rule out osteoarthritis. No previous for comparison. FINDINGS: AP and lateral views of the right wrist demonstrate severe osteoarthritis in the first and second carpal-metacarpal joints. There is less involvement of the radial-carpal joint. There is no evidence of erosive arthropathy, fracture or bone destruction. Procedure Note Ronaldo Warren MD - 06/22/2009 pain, r/o oa RIGHT WRIST: 02/04/01. HISTORY: Pain. Rule out osteoarthritis. No previous for comparison. FINDINGS: AP and lateral views of the right wrist demonstrate severe osteoarthritis in the first and second carpal-metacarpal joints. There is less involvement of the radial-carpal joint. There is no evidence of erosive arthropathy, fracture or bone destruction. IMPRESSION IMPRESSION: Osteoarthritis. /judith Alejandro Hare MD IMG DIAGNOSTIC IMAGI NG ORDERABLES * MR EXTREMITY WRIST WO CONTRAST (02/04/2001 10:28 EDT) Anatomical Region Laterality Modality Other 02/04/2001 10:2 8 EDT Impressions 06/12/2009 23:39 EST IMPRESSION: 1. Minimal scapholunate interval widening without evidence of ligamentous disruption. 2. Minimal flexor retinaculum thickening. If there is concern regarding CTS, contra-lateral wrist comparison study would be helpful. /tns Narrative 06/12/2009 23:39 EST RT WRIST PAIN R/O TENDONITIS RIGHT WRIST MRI: 02/04/01. HISTORY: 65-year-old female with right wrist pain. Rule out tendonitis. TECHNIQUE: MRI of the wrist is performed with axial T1 and fat-suppressed T2, coronal proton density and sagittal and coronal fat-suppressed T2 weighted sequences without contrast administration. FINDINGS: Right wrist MRI demonstrate minimal widening of the scapholunate interval. The scapholunate ligament appears to be contiguous without evidence of tear on Image #11 and #12 of the T2 fat-suppressed sequences. No definite scapholunate tear is identified. There appears to be minimal thickening of the flexor retinaculum; however, ligamentous signal is unremarkable. Carpal tunnel compartment tendons do not appear conglomerate, tendon signal is unremarkable. No marrow signal abnormality is identified. No other soft tissue abnormality. Procedure Note W, L David Lagunas DMD / Everton Solorio MD - 06/12/2009 RT WRIST PAIN R/O TENDONITIS RIGHT WRIST MRI: 02/04/01. HISTORY: 65-year-old female with right wrist pain. Rule out tendonitis. TECHNIQUE: MRI of the wrist is performed with axial T1 and fat-suppressed T2, coronal proton density and sagittal and coronal fat-suppressed T2 weighted sequences without contrast administration. FINDINGS: Right wrist MRI demonstrate minimal widening of the scapholunate interval. The scapholunate ligament appears to be contiguous without evidence of tear on Image #11 and #12 of the T2 fat-suppressed sequences. No definite scapholunate tear is identified. There appears to be minimal thickening of the flexor retinaculum; however, ligamentous signal is unremarkable. Carpal tunnel compartment tendons do not appear conglomerate, tendon signal is unremarkable. No marrow signal abnormality is identified. No other soft tissue abnormality. IMPRESSION IMPRESSION: 1. Minimal scapholunate interval widening without evidence of ligamentous disruption. 2. Minimal flexor retinaculum thickening. If there is concern regarding CTS, contra-lateral wrist comparison study would be helpful. /doron Alejandro Hare MD IMG MRI ORDERABLES documented in this encounter Visit Diagnoses Not on filedocumented in this encounter
--- OUTSIDE RECORDS SUMMARY | 2024-05-02 14:22 | XMS_ITS | Encounter Summary ---
Author Organization [facility] Address [address] [place] [address] Care Team Providers Care Brick And Block Mason Name Role Phone Jamal Padilla MD Primary Care Provider [phone] Encounter Details Date Type Department Care Team (Late st Contact Info) Description 08/17/2017 Results Only [facility] [phone] Alvarez De La Vega MD [address] [place] [phone] Social History Tobacco Use Types Packs/Day Years Used Date Smoking Tobacco: Never Assessed Sex and Gender Information Value Date Recorded Sex Assigned at Not on file Gender Identity Not on file Sexual Orientation Not on file documented as of this encounter Plan of Treatment Not on file documented as of this encounter Procedures Procedure Name Priority Date/Time Associated Diagnosis Comments SURGICAL PATHOLOGY Routine 08/17/2017 9:00 EST documented in this encounter Results * SURGICAL PATHOLOGY (08/17/2017 9:00 EST) Pathology Report: SURGICAL PATHOLOGY REPORT Reports generated via electronic interface contain original data; however they are lacking the format of the original report. Caution should be taken when reading/interpret ing unformatted reports. Name: ? CRYSTAL BARRIENTOS ? Accession #: ? [id number] ? : ? 1945 (Age: 72) ??F ? Collect Date: ? 08/17/2017 ? Location: ? [facility] ? Receive Date: ? 08/19/2017 ? Provider: ALVAREZ DE LA VEGA MD Copy to: JENNIFER SOSA MD ? Final Pathologic Diagnosis: THYROID, LEFT, LOBECTOMY: - Nodular hyperplasia. See comment. - Two incidental parathyroids with no specific pathologic abnormalities. Comment: The separately submitted 1.5 cm tissue fragment shows benign thyroid tissue with biopsy site changes. Dr. Zeinab Greenberg 08/20/2017 1:44 PM Document reviewed and electronically signed by: ZEINAB GREENBERG MD Report ??Date: 08/20/2017 15:00 By the signature above, the attending physician certifies that he/she has personally conducted a gross and/or microscopic examination of the described specimens and rendered or confirmed the above diagnosis. Specimen(s) Received: L thyroid lobe Clinical History: L thyroid nodule Gross Description: ? Received in formalin labelled with proper patient identification (initials J, G) and left lobe thyroid is a 6.2 g left hemithyroid (4.0 cm superior to inferior x 3.1 cm right to left x 1.2 cm anterior to posterior). The intact thyroid surface has scattered fine adhesions, but is otherwise unremarkable. The specimen is serially sectioned from superior (level 1) inferior (level 11). Sectioning reveals homogenous red-brown cut surfaces. There is a 0.4 cm in greatest dimension well circumscribed cyst filled with cruz yellow fluid, located in levels 8 and 9. No definitive masses are identified. Also present within the container is a 1.5 x 1.3 x 1.1 cm irregular fragment of soft martinez to red-brown tissue, weighing 0.66 g. The outer surface is inked blue. Sectioning reveals homogenous red-brown cut surfaces. No definitive masses or lesions are identified. Ironing Worker sections are submitted as follows: INK PARNELL Blue-anterior Black-posterior Hayes-isthmus margin BLOCK PARNELL 1- ??levels 2 and 4, left lobe 2- ??level 6, left lobe 3- ??level 8, left lobe 4- ??level 9, left lobe 5- ??level 11, left lobe 6- ??separate tissue fragment, trisected ANALI Becerril (ASCP) 08/19/2017 1:52 PM End of Report [facility] 08/17/2017 9:00 EST 08/19/2017 9:00 EST Alvarez De La Vega MD PATHOLOGY ORDERABLES [facility] [address] [place] [address] documented in this encounter Visit Diagnoses Not on filedocumented in this encounter Care Teams Brick And Block Mason Relationship Specialty Start Date End Date Jamal Padilla MD PCP - General 06/11/15 documented as of this encounter
--- OUTSIDE RECORDS SUMMARY | 2024-05-02 14:22 | XMS_ITS | Continuity of Care Document ---
Author Organization [facility] Address [address] [place] [address] Care Team Providers Care Power Marketer Name Role Phone Primeau IPHC, Tang Alves Primary Care Physician Encounter [facility] [id number] Date(s): 08/05/23 - 08/05/23 [facility] [address] [place] [address] Encounter Diagnosis Chest pain(Discharge Diagnosis) - 08/05/23 Discharge Disposition: Home or Self Care Attending Physician: Faustina Andrews BLEACHER OPERATOR Allergies, Adverse Reactions, Alerts Substance Reaction Severity [...] Daily, # 30 tab, 12 Refill(s), Pharmacy: [id number], 157, cm, 04/28/23 [...] Range]: 1 Peripheral Pulse Rate [60-100 bpm] 77 bp m (08/05/23 12:16 PM) Blood Pressure [90-140/60-90 mmHg] 146/6 9mmHg *HI* (08/05/23 12:16 PM) Mean Arterial Pressure, Cuff [70-110 mmH g] 95 mmHg (08/05/23 12:16 PM) Weight 64.41 kg (08/05/23 12:16 PM) Weight Measured (lbs) 142 lb (08/05/23 12:16 PM) Weight Dosing 64.410 kg (08/05/23 12:16 PM) Height 157.48 cm (08/05/23 12:16 PM) Height/Length Measured (inches) 62 inch (08/05/23 12:16 PM) BSA Measured 1.68 m2 (08/05/23 12:16 PM) Body Mass Index 25.97 kg/m2 (08/05/23 12:16 PM) Social History Social History Type Response Tobacco Never tobacco user T obacco Use:. Sex Female Physician Outpatient Note * Faustina Andrews BLEACHER OPERATOR: PERFORM Event Display: Office Clinic Note Physician Authored Date: [id number] CRYSTAL BARRIENTOS :1945 Age:78 years Sex:Female Visit Date:08/05/2023 Primary Care Physician: Anuradha HEBERT, Tang Alves MD History of Present Illness Cardiac Problems: 1.Chest pain 2.?? Hypertension 3.?? Coronary artery disease-status post PCI to LAD 2018 at -,??metoprolol 50 mg, aspirin 81 mg, Plavix 75 mg,??rosuvastatin 40 mg 4.?? Hyperlipidemia 5.?? Diabetes mellitus 6.Palpitations 7. Pulmonary Embolism 8.DVT ?? This is a 77-year-old female that I last saw in the office on 05/04/2023??for coronary artery disease.?? I had seen her after??a recent admission for chest pain in the setting of known coronary artery disease with nausea and shortness of breath.?? Her echo was reassuring, but her stress test??wasnondiagnostic??due to not achieving 85% of max potential heart rate.?? She was reporting at her last appointment that she was still lightheaded and weak.?? She stated if she gets up to walk for any distance??she is short of breath??but this has been normal for her for the past few years.?? She was on a cardioprotective medication regimen??at the time of the appointment??and was not experiencing any chest pain??but was experiencing dyspnea on exertion??in addition to lightheadedness and dizziness.?? I ordered a Lexiscan stress test??to complete her work-up. ??She is here today??to follow-up. Stress test was reassuring. ?? 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 She states thattoday she feels??significantly short of breath even with sitting down.?? This is new for her??and she feels like she has to try and catch her air even with sitting down. ?? She is reporting??an 8 out of 10??pressure under her left breast that radiates to her left jaw??that is occurred??3 times in the last week,??1 day it was twice in 1 day last week. ??This pain lasted for about 15 to 20 minutes, and she did take 2 nitros last week.?? There was 1 day that??had to??chest pain occurrences??then 4 days apart from the third??chest pain episode.?? She states that??along with the radiating chest pain to her jaw she did experience significant nausea??and presyncope with her first episode, she states the??room did not look right.?? She finds that??her dyspnea is worse??with this chest pain as well??and??the dyspnea and chest pain have worsened??in the past??couple of weeks.?? She is currently??still on clopidogrel??and having the symptoms as well. ?? She states typically her breathing is??okay, today she is very short of breath, and??recently is having to take a deep breath to breathe while sitting down and that is new this week.?? She is still??dizzy??with getting up too quickly??but not as lightheaded as she once was.?? She states finds that her ankles are swelling daily??over the past couple of weeks??and this is abnormal for her. ?? Currently she is not exercising other than sitting in her chair??and walking in the grocery store 3times a week for about 30 minutes. ??She states that she is significantly short of breath and feelslike her legs are going to give out with??this exercise, and as of recently??she has not have chestpain with this.?? She is not currently taking her??blood pressure at home. ?? She does have diagnosed sleep apnea and did have a CPAP machine??but for couple of years has notused it since it was recalled. Review of Systems A complete review of systems is negative other than as noted in the history of present illness. Physical Exam Vitals & Measurements HR:??77??(Peripheral)?? BP:??146/69?? SpO2:??96%?? HT:??157.48??cm?? WT:??64.41??kg?? BMI:??25.97?? BSA:??1.68?? HEENT: Normocephalic, atraumatic Respirations: Clear to auscultation [...] ischemia. 04/28/2023:EKG: SR at 84 bpm, no [place] segment depressions, no new ST segment changes, [...] perfusion with no evidence of ischemia or prior infarct. Normal LV function with normal wall motion and ejection fraction greater than 60%. 08/05/2023: EKG:Sinus rhythm at 88 bpm, borderline left axis deviation. ?? 77-year-old female with CAD and chest pain ?? Coronary artery disease:??She is currently symptomatic on and on a cardioprotective medication regimen that includes aspirin,??high-dose statin,??a beta-amy, and Plavix.?? She is both reporting dyspnea??and chest pain??with and without exertion.?? She had a reassuring echocardiogram as well as a normal??stress test??that we went over at length today. ??However??given her symptoms of what she reports this does sound like unstable angina.?? I am recommending that she have a??left heart catheterization, and she prefers??to be sent to [facility].?? I did discuss this all with her, and she states that she has had??heart catheterization in the past.?? We discussed that??given these worsening symptoms??as well on??a cardioprotective medication regimen??we need to assess??for ischemia??given that it sounds like unstable angina.?? I am sending??a referral for a stat??left heart catheterization at [facility] and will be sent out today. ?? Chest?? Pain:??She is currently reporting an 8 out of 10??chest pain??that has occurred 3 times in the past week??with nausea,??presyncope, and dyspnea, along with radiation to her left jaw. ??She did have a reassuring echo and stress test??but this does sound like unstable angina. ??We are sendingher for a left heart catheterization??stat at [facility]. ??She is on??Plavix already??and will continue this. ?? Dyspnea: She had a recent reassuring echocardiogram and normal lexiscan stress test that showed no evidence of ischemia or prior infarct. She is at a low risk of having a cardiac event given the results of the echo and stress test. These results were discussed at length today.?? However they are not always 100%??and her symptoms??have been worsening??and it does sound like unstable angina. ??We are referring her for a left heart catheterization??considering she is on a cardioprotective medication regimen at this point and still symptomatic. ?? Dizziness:??She is experiencing dizziness and lightheadedness??and presyncope with the chest pain??but also with??changing positions. ??We did discuss that??we could always order a heart monitor??for 2 weeks to assess this but I think at this point we should focus on the left heart catheterization first.?? I will see her back??in 3 months after she has had a heart catheterization??but she knows to call in with any questions or concerns in the meantime. ??I did encourage her to [facility] for any??further chest pain and worsening symptoms.?? It was a pleasure to see Crystal. Clinic Assessment/Plan Chest pain??R07.9 Actions: COMPLETED - [id number] Office/Outpatient Visit - Established Patient, Level 3 (20-29 min)., 08/05/23 12:02:00 EST, Chest pain COMPLETED - Follow-Up Appointment Request YASIR, 08/05/23 12:40:00 EST, In [facility], [facility], 08/05/23 12:40:00 EST ?? Additional Actions: FUTURE - Follow-Up Appointment Request YASIR, *Est. 11/04/23 +/- 21 days, Future Order, In Approximately, [facility] Problem List/Past Medical History Ongoing CAD [...] vaccine, inactivated 05/28/2010 Recorded Electronically Signed on 08/05/23 01:48 PM Faustina Andrews NP Patient Care team information Care Team Personnel Name: [facility]ha [facility] Position: No Access Member Role: Primary Care Physician Address: Address: [address] Care Team Related Persons Name: DENNIS FRAGA
--- OUTSIDE RECORDS SUMMARY | 2024-05-02 14:22 | XMS_ITS | Continuity of Care Document ---
Author Organization [facility] Address [address] [place] [address] Care Team Providers Care Auto Inspector Name Role Phone Tang Feliciano Primary Care Physician Encounter [facility] Date(s): 07/18/22 - 07/18/[address] [phone] Discharge Disposition: Home or Self Care Attending Physician: Tang Weiss MD Admitting Physician: Tang Weiss MD Referring Physician: Tang Weiss MD Allergies, Adverse Reactions, Alerts Substance Reaction [...] Use:. Sex Female Patient Care team information Personnel Name: Tang Feliciano MD Address: Address: [facility] [address], [place] [address]
--- OUTSIDE RECORDS SUMMARY | 2024-05-02 14:22 | XMS_ITS | Continuity of Care Document ---
Author Organization [facility] Address [address] [place] [address] Care Team Providers Care Book Cutter Name Role Phone Primeau IPHC, Tang Alves Primary Care Physician [facility] [id number] Date(s): 12/17/23 - 12/17/23 [facility] [address] [place] [address] Discharge Disposition: Home Allergies, Adverse Reactions, Alerts Substance Reaction Severity Status BEE VENOM PROTEIN (HONEY BEE) Unknown Active ibuprofen Urticaria Unknown Active metFORMIN Diarrhoea Moderate Active linagliptin Head pain Moderate Active Assessment and Plan Future Appointments Future Scheduled Tests Laboratory* Basic [...] Daily, # 30 tab, 12 Refill(s), Pharmacy: [facility] [id number], 157, cm, 04/28/23 13:43:00 [...] Daily, # 180 tab, 3 Refill(s), Pharmacy: [facility] [id number], 154.94, cm, 12/17/23 13:44:00 EDT, [...] Member Role: Primary Care Physician Address: Address: [address] Care Team Related Persons Name: DENNIS FRAGA Address: Home
--- OUTSIDE RECORDS SUMMARY | 2024-05-02 14:22 | XMS_ITS | Continuity of Care Document ---
Author Organization [facility] Address [address] [place] [address] Care Team Providers Care Bottom Man Name Role Phone Primeau IPHC, Tang Alves Primary Care Physician Encounter [facility] Date(s): 09/28/23 - 09/28/[address] [address] Discharge Disposition: Home or Self Care Attending Physician: Ebonie Solares PA-C Admitting Physician: Ebonie Solares PA-C Referring Physician: Ebonie Solares PA-C Allergies, Adverse Reactions, Alerts Substance Reaction Severity [...] Daily, # 30 tab, 12 Refill(s), Pharmacy: [facility] [id number], 157, cm, 04/28/23 [...] Member Role: Primary Care Physician Address: Address: [address] [place] [address]- Care Team Related Persons Name: DENNIS FRAGA
--- OUTSIDE RECORDS SUMMARY | 2024-05-02 14:22 | XMS_ITS | Continuity of Care Document ---
Author Organization [facility] Address [address] [place] [address] Care Team Providers Care Textile Scrap Salvager Name Role Phone Primeau IPHC, Tang Alves Primary Care Physician Encounter [facility] [id number] Date(s): 12/21/23 - 12/21/[address] [address] Encounter Diagnosis Dizziness(Discharge Diagnosis) - 12/21/23 Discharge Disposition: Home or Self Care Attending Physician: Faustina Andrews MEDIA AID Admitting Physician: Faustina Andrews NP Referring Physician: Faustina Andrews MEDIA AID Allergies, Adverse Reactions, Alerts Substance Reaction Severity [...] Daily, # 30 tab, 12 Refill(s), Pharmacy: [facility] [id number], 157, cm, 04/28/23 [...] Daily, # 180 tab, 3 Refill(s), Pharmacy: [facility] 4156, 154.94, cm, 12/17/23 [...] user T obacco Use:. Sex Female Cardiology * Alexa Rios: PERFORM Event Display: Event Monitor Authored Date: [id number] CRYSTAL BARRIENTOS 1945 [id number] Patient placed on Z[employer] Event Monitor 14 dayson 12/21/2023. Electronically Signed on 12/21/23 10:10 AM Alexa Rios Patient Care team information Care Team Personnel Name: Anuradha HEBERT, Tang Alves MD Position: No Access Member Role: Primary Care Physician Address: Address: [id number] [place] [address] Care Team Related Persons Name: DENNIS FRAGA
--- OUTSIDE RECORDS SUMMARY | 2024-05-02 14:22 | XMS_ITS | Encounter Summary ---
Author Organization [facility] Address [address] [place] [address] Care Team Providers Care Commercial Trailer Truck Driver Name Role Phone Unavailable Primary Care Provider Unavailabl e Encounter Details Date Type Department Care Team (Latest Contact Info) Description 03/25/2001 8:44 EDT - 03/25/2001 11:59 EDT Hospital Encounter [facility] [address] [place] [address] Alejandro Hare MD [address] [place] [phone] Discharge Disposition: Auto Discharge Social History [...] Procedure Name Priority Date/Time Associated Diagnosis Comments NM BONE SCAN LIMITED Routine 03/25/2001 13:05 EDT documented in this encounter Results * NM BONE SCAN LIMITED (03/25/2001 13:05 EDT) Anatomical Region Laterality Modality Other 03/25/2001 13:0 5 EDT Impressions 06/22/2009 2:43 EST IMPRESSION: Three foci of increased activity in the left wrist, consistent with arthritis. No abnormality is seen on the right side. /miguel Narrative 06/22/2009 2:43 EST LIMITED BONE SCAN(RT WRIST/HAND)-PAIN R/O FX LIMITED BONE SCAN: 03/25/01 Following intravenous administration of 23.7 mCi Tc-99m MDP, a bone scan was performed with palmar and dorsal images of the forearms, wrists, and hands. There are three foci of increased activity in the left wrist. One is at the base of the thumb; the second is in the region of the radioulnar joint; and the third is just to the ulnar side of the second. These are all consistent with arthritis. I understand from the requisition, and the plane films done on 02/04/01, that it is the right wrist that is symptomatic. The images of the right hand and wrist are entirely normal. Procedure Note Aurelio Murray MD - 06/22/2009 LIMITED BONE SCAN(RT WRIST/HAND)-PAIN R/O FX LIMITED BONE SCAN: 03/25/01 Following intravenous administration of 23.7 mCi Tc-99m MDP, a bone scan was performed with palmar and dorsal images of the forearms, wrists, and hands. There are three foci of increased activity in the left wrist. One is at the base of the thumb; the second is in the region of the radioulnar joint; and the third is just to the ulnar side of the second. These are all consistent with arthritis. I understand from the requisition, and the plane films done on 02/04/01, that it is the right wrist that is symptomatic. The images of the right hand and wrist are entirely normal. IMPRESSION IMPRESSION: Three foci of increased activity in the left wrist, consistent with arthritis. No abnormality is seen on the right side. /miguel Alejandro Hare MD IMG NM ORDERABLES documented in this encounter Visit Diagnoses Not on filedocumented in this encounter
--- OUTSIDE RECORDS SUMMARY | 2024-05-02 14:22 | XMS_ITS | Continuity of Care Document ---
Author Organization [facility] Address [address] [place] [address] Care Team Providers Care Concession Worker Name Role Phone Tang Feliciano Primary Care Physician Encounter [facility] Date(s): 07/17/22 - 07/17/[address] [address] Discharge Disposition: Home or Self Care Attending [...] Status: Ordered Results Laboratory List Name Date Creatine Kinase 07/17/22 D-Dimer 07/17/22 Ferritin 07/17/22 Folate Level 07/17/22 Most recent to oldest [Reference Range]: 1 Folate Level [8.6-58.9 ng/mL] 8.8 ng/mL (07/17/22 4:45 PM) Ferritin Level [8-252 ng/mL] 211 ng/mL (07/17/22 4:45 PM) D Dimer, (Quant.) [0.00-0.50 mg/L] 2.52 mg/L *HI* (07/17/22 4:45 PM) CK [26-192 unit/L] 48 unit/L (07/17/22 4:45 PM) Social History Social History Type Response Tobacco Never tobacco user T obacco Use:. Sex Female Patient Care team information Personnel Name: Tang Feliciano MD Address: Address: [address] [address]- [place]
--- OUTSIDE RECORDS SUMMARY | 2024-05-02 14:22 | XMS_ITS | Continuity of Care Document ---
Author Organization [facility] Address [address] [place] [address] Care Team Providers Care Key Carrier Name Role Phone Primeau IPHCTang Primary Care Physician Encounter NCTY_HI Date(s): 04/28/23 - 04/30/23 [facility] [address] [place] [address] Encounter Diagnosis Chest pain, rule out acute myocardial infarction(Discharge Diagnosis) - 04/28/23 HTN (hypertension)(Discharge Diagnosis) - 04/28/23 HLD (hyperlipidemia)(Discharge Diagnosis) - 04/28/23 Diabetes(Discharge Diagnosis) - 04/28/23 CAD (coronary artery disease)(Discharge Diagnosis) - 04/30/23 Other chest pain(Final) - Contact with and (suspected) exposure to COVID-19(Final) - Atherosclerotic heart disease of [place] coronary artery without angina pectoris (Final) - Essential (primary) hypertension(Final) - Hyperlipidemia, unspecified(Final) - Type 2 diabetes mellitus without complications(Final) - Nonrheumatic aortic (valve) insufficiency(Final) - Nonrheumatic mitral (valve) insufficiency(Final) - Nonrheumatic tricuspid (valve) insufficiency(Final) - Nonrheumatic pulmonary valve insufficiency(Final) - Other analog design engineer (current) drug therapy(Final) - skilled nursing (current) use of insulin(Final) - Discharge Disposition: Home or Self Care Attending Physician: Ranjan Plaza DO Admitting Physician: Abran Osorio NP Allergies, Adverse Reactions, Alerts Substance Reaction Severity Status BEE VENOM PROTEIN (HONEY BEE) Unknown Active ibuprofen Urticaria Unknown Active metFORMIN Diarrhoea Moderate Active linagliptin Head pain Moderate Active Assessment and Plan Future Appointments Future Scheduled Tests Radiology* NM Myocardial SPECT Drug Stress Multi 11/13/22 Functional Status 04/30/23 Lunch Percent 100 04/29/23 Living Environment No Living Environmen t Information Available Lives In Single level home Lives With Family Living Situation Home with family car e Home Barriers None Patient's Responsibilities Personal ADL Home Equipment Cane, Walker, Wheelchair Special Services and Community Resources None 04/29/23 Activity Status ADL Up to toilet 04/28/23 ADLs Independent History of Falls Within last three mo [facility] Family Member Travel History No recent t [...] Daily, # 30 tab, 12 Refill(s), Pharmacy: [facility] [id number], 157, cm, 04/28/23 13:43:00 [...] Confirmed Active Results Laboratory List Name Date Glucose POCT 04/30/23 Glucose POCT 04/30/23 Glucose POCT 04/30/23 Automated Diff 04/30/23 Basic Metabolic Panel 04/30/23 CBC w/ Diff 04/30/23 Magnesium Level 04/30/23 Phosphorus Level 04/30/23 Automated Diff 04/29/23 Basic Metabolic Panel 04/29/23 CBC w/ Diff 04/29/23 Magnesium Level 04/29/23 Phosphorus Level 04/29/23 Troponin-I 04/29/23 SARS-CoV-2 (COVID-19) RNA (ID Now) Troponin-I 04/28/23 Troponin-I 04/28/23 CBC w/ Diff 04/28/23 Comprehensive Metabolic Panel (CMP) 04/28 D-Dimer 04/28/23 Lipase Level 04/28/23 Automated Diff 04/28/23 Most recent to oldest [Reference Range]: 1 2 3 WBC [5.0-10.0 x10^3/mcL] 5.0 x10^3/mcL (04/30/23 6:55 AM) 7.3 x10^3/mcL (04/29/23 7:00 AM) 5.8 x10^3/mcL (04/28/23 1:53 PM) RBC [4.1-5.3 x10^6/mcL] 4.1 x10^6/mcL (04/30/23 6:55 AM) 4.5 x10^6/mcL (04/29/23 7:00 AM) 4.9 x10^6/mcL (04/28/23 1:53 PM) Neutro Auto [40.0-75.0 %] 58.3 % (04/30/23 6:55 AM) 60.3 % (04/29/23 7:00 AM) 62.7 % (04/28/23 1:53 PM) Lymph Auto [20.0-50.0 %] 28.9 % (04/30/23 6:55 AM) 30.0 % (04/29/23 7:00 AM) 29.7 % (04/28/23 1:53 PM) Starke Auto [2.0-15.0 %] 8.0 % (04/30/23 6:55 AM) 7.0 % (04/29/23 7:00 AM) 5.2 % (04/28/23 1:53 PM) Basophil Auto [0.0-1.0 %] 0.8 % (04/30/23 6:55 AM) 0.5 % (04/29/23 7:00 AM) 0.7 % (04/28/23 1:53 PM) BUN [7-18 mg/dL] 17 mg/dL (04/30/23 6:55 AM) 17 mg/dL (04/29/23 7:00 AM) 15 mg/dL (04/28/23 1:53 PM) Glucose POC [74-106 mg/dL] 194 mg/dL *HI* (04/30/23 1:53 PM) 182 mg/dL *HI* (04/30/23 11:15 AM) 206 mg/dL *HI* (04/30/23 7:32 AM) Glucose Level [74-106 mg/dL] 210 mg/dL *HI* (04/30/23 6:55 AM) 219 mg/dL *HI* (04/29/23 7:00 AM) 441 mg/dL *HI* (04/28/23 1:53 PM) Potassium Level [3.5-5.1 mmol/L] 4.3 mmol/L (04/30/23 6:55 AM) 3.9 mmol/L (04/29/23 7:00 AM) 4.0 mmol/L (04/28/23 1:53 PM) MCV [80.0-96.0 fL] 89.9 fL (04/30/23 6:55 AM) 88.1 fL (04/29/23 7:00 AM) 88.4 fL (04/28/23 1:53 PM) AST [15-37 unit/L] 13 unit/L *LOW* (04/28/23 1:53 PM) ALT [14-59 unit/L] 21 unit/L (04/28/23 1:53 PM) MCHC [31.0-35.0 g/dL] 34.4 g/dL (04/30/23 6:55 AM) 34.9 g/dL (04/29/23 7:00 AM) 35.3 g/dL *HI* (04/28/23 1:53 PM) Troponin-I [0.0-51.4 pg/mL] 6.2 pg/mL (04/29/23 7:00 AM) 5.7 pg/mL (04/28/23 7:07 PM) <5.0 pg/mL (04/28/23 4:05 PM) Sodium Level [136-145 mmol/L] 141 mmol/L (04/30/23 6:55 AM) 139 mmol/L (04/29/23 7:00 AM) 135 mmol/L *LOW* (04/28/23 1:53 PM) Hct [37.0-47.0 %] 36.6 % *LOW* (04/30/23 6:55 AM) 39.8 % (04/29/23 7:00 AM) 43.4 % (04/28/23 1:53 PM) Lipase Level [16-77 unit/L] 45 unit/L 1 (04/28/23 1:53 PM) Calcium Level [8.5-10.1 mg/dL] 8.4 mg/dL *LOW* (04/30/23 6:55 AM) 8.7 mg/dL (04/29/23 7:00 AM) 8.9 mg/dL (04/28/23 1:53 PM) Phosphorus Level [2.6-4.7 mg/dL] 4.1 mg/dL (04/30/23 6:55 AM) 4.6 mg/dL (04/29/23 7:00 AM) Albumin Level [3.4-5.0 g/dL] 3.5 g/dL (04/28/23 1:53 PM) Protein Total [6.4-8.2 g/dL] 7.0 g/dL (04/28/23 1:53 PM) MCH [26.0-32.0 pg] 31.0 pg (04/30/23 6:55 AM) 30.8 pg (04/29/23 7:00 AM) 31.2 pg (04/28/23 1:53 PM) Magnesium Level [1.8-2.4 mg/dL] 1.7 mg/dL *LOW* (04/30/23 6:55 AM) 1.8 mg/dL (04/29/23 7:00 AM) Neutro Absolute 2.9 x10^3/mcL *NA* (04/30/23 6:55 AM) 4.4 x10^3/mcL *NA* (04/29/23 7:00 AM) 3.6 x10^3/mcL *NA* (04/28/23 1:53 PM) Bilirubin Total [0.2-1.0 mg/dL] 0.7 mg/dL (04/28/23 1:53 PM) Hgb [12.0-16.0 g/dL] 12.6 g/dL (04/30/23 6:55 AM) 13.9 g/dL (04/29/23 7:00 AM) 15.3 g/dL (04/28/23 1:53 PM) Alk Phos [46-146 unit/L] 111 unit/L (04/28/23 1:53 PM) Platelets [130-450 x10^3/mcL] 131 x10^3/mcL (04/30/23 6:55 AM) 157 x10^3/mcL (04/29/23 7:00 AM) 165 x10^3/mcL (04/28/23 1:53 PM) CO2 [21-32 mmol/L] 28 mmol/L (04/30/23 6:55 AM) 28 mmol/L (04/29/23 7:00 AM) 30 mmol/L (04/28/23 1:53 PM) eGFR Non-AA [>=60] 55 *LOW* (04/30/23 6:55 AM) 64 (04/29/23 7:00 AM) 53 *LOW* (04/28/23 1:53 PM) eGFR AA [>=60] 55 *LOW* (04/30/23 6:55 AM) 64 (04/29/23 7:00 AM) 53 *LOW* (04/28/23 1:53 PM) Chloride Level [98-107 mmol/L] 107 mmol/L (04/30/23 6:55 AM) 104 mmol/L (04/29/23 7:00 AM) 100 mmol/L (04/28/23 1:53 PM) RDW-CV [11.5-14.5 %] 12.8 % (04/30/23 6:55 AM) 12.8 % (04/29/23 7:00 AM) 12.8 % (04/28/23 1:53 PM) Imm Gran Auto [0.0-0.9 %] 0.4 % (04/30/23 6:55 AM) 0.3 % (04/29/23 7:00 AM) 0.3 % (04/28/23 1:53 PM) Creatinine Level [0.55-1.02 mg/dL] 1.04 mg/dL *HI* (04/30/23 6:55 AM) 0.92 mg/dL (04/29/23 7:00 AM) 1.08 mg/dL *HI* (04/28/23 1:53 PM) SARS-CoV-2 (COVID-19) RNA (ID Now) [Not Detected] Not Detected (04/28/23 8:35 PM) D Dimer, (Quant.) [0.00-0.50 mg/L] 2.41 mg/L 2 *HI* (04/28/23 1:53 PM) Eos, Auto [1.0-6.0 %] 3.6 % (04/30/23 6:55 AM) 1.9 % (04/29/23 7:00 AM) 1.4 % (04/28/23 1:53 PM) 1Interpretive Data: Effective 05/22/22, [facility] has switched to a revised Lipase test.Note new ReferenceRange. 2Interpretive Data: Exclusion of PE: Effective April 21, 2012 a new D-Dimer assay [INNOVANCE] is being implemented, this test has a [...] 3 Temperature Temporal Artery [36-38 Deg C] 36.5 Deg C (04/30/23 10:30 AM) 36.4 Deg C (04/30/23 7:20 AM) 36.1 Deg C (04/30/23 2:44 AM) Peripheral Pulse Rate [60-100 bpm] 72 bpm (04/30/23 10:30 AM) 73 bpm (04/30/23 7:20 AM) 68 bpm (04/30/23 2:44 AM) Heart Rate Monitored [60-100 bpm] 96 bpm (04/28/23 9:30 PM) 96 bpm (04/28/23 9:00 PM) 94 bpm (04/28/23 8:30 PM) Respiratory Rate [12-24 br/min] 16 br/min (04/30/23 10:30 AM) 16 br/min (04/30/23 7:20 AM) 16 br/min (04/30/23 2:44 AM) Blood Pressure [90-140/60-90 mmHg] 139/71mmHg (04/30/23 10:30 AM) 105/93mmHg (04/30/23 7:20 AM) 113/67mmHg (04/30/23 2:44 AM) Mean Arterial Pressure Cuff 92 mmHg (04/30/23 10:30 AM) 99 mmHg (04/30/23 7:20 AM) 77 mmHg (04/30/23 2:44 AM) Blood Pressure Location Left arm (04/29/23 2:38 AM) Left arm (04/28/23 10:30 PM) Weight 64.4 kg (04/30/23 7:20 AM) 62.9 kg (04/28/23 10:35 PM) 62.9 kg (04/28/23 10:30 PM) Weight Dosing 63.50 kg (04/28/23 1:43 PM) Usual Weight 67 kg (04/28/23 10:35 PM) Height 157.000 cm (04/28/23 1:38 PM) Height/Length Dosing 157.000 cm (04/28/23 1:43 PM) Body Mass Index 26.000 kg/m2 (04/28/23 1:38 PM) Social History Social History Type Response Tobacco Never tobacco user T obacco Use:. Sex Female Hospital Discharge Instructions Patient Education 04/30/2023 12:15:03 Chest Wall Pain Chest Wall Pain Chest wall pain is pain in or around the bones and muscles of your chest. Sometimes, an injury causes this pain. Excessive coughing or overuse of arm and chest muscles may also cause chest wall pain.Sometimes, the cause may not be known. This pain may take several weeks or longer to get better. Follow these instructions at home: Managing pain, stiffness, and swelling ??? If directed, put ice on the painful area: ??? Put ice in a plastic bag. ??? Place a towel between your skin and the bag. ??? Leave the ice on for 20 minutes, 2???3 times per day. Activity ??? Rest as told by your health care provider. ??? Avoid activities that cause pain. These include any activities that use your chest muscles or your abdominal and side muscles to lift heavy items. Ask your health care provider what activities are safe for you. General instructions ??? Take [id number] and prescription medicines only as told by your health care provider. ??? Do not use any products that contain nicotine or tobacco, such as cigarettes, e-cigarettes, andchewing tobacco. These can delay healing after injury. If you need help quitting, ask your health care provider. ??? Keep all follow-up visits as told by your health care provider. This is important. Contact a health care provider if: ??? You have a fever. ??? Your chest pain becomes worse. ??? You have new symptoms. Get help right away if: ??? You have nausea or vomiting. ??? You feel sweaty or light-headed. ??? You have a cough with mucus from your lungs (sputum) or you cough up blood. ??? You develop shortness of breath. These symptoms may represent a serious problem that is an emergency. Do not wait to see if the symptoms will go away. Get medical help right away. Call your local emergency services (911 in the [place] Do not drive yourself to the hospital. Summary ??? Chest wall pain is pain in or around the bones and muscles of your chest. ??? Depending on the cause, it may be treated with ice, rest, medicines, and avoiding activities that cause pain. ??? Contact a health care provider if you have a fever, worsening chest pain, or new symptoms. ??? Get help right away if you feel light-headed or you develop shortness of breath. These symptomsmay be an emergency. This information is not intended to replace advice given to you by your health care provider. Make sure you discuss any questions you have with your health care provider. Document Revised: 10/04/2021 Document Reviewed: 10/04/2021 Elsevier Patient Education ?? 2022 [employer] Follow Up Care 04/28/2023 13:38:02 With:Alteration Manager Address: When:1 month Comments:Need Nuclear stress test scheduled -referral sent With:Tang Weiss MD Address: [address] [phone] When:1 to 2 weeks Comments:call office to schedule. Discharge instructions * Lindsay Barragan: PERFORM Event Display: Discharge Instructions Authored Date: [id number] CRYSTAL BARRIENTOS :1945 Age:77 years Sex:Female Visit Date:04/28/2023 Primary Care Physician: Tang Weiss MD Hospital Discharge Instructions We would like to thank you for allowing us to assist you with your healthcare needs. The following includes patient education materials and information regarding your injury/illness. Your Next Steps Discharge Orders Discharge Activity Restrictions, No Strenuous Exercise Discharge Diet Instruction, Diabetic Diet Follow Up Appointments Follow Up with??Alteration Manager When:??Within 1 month Why: Need Nuclear stress test scheduled -referral sent Follow Up with??Anuradha [facility], Tang Alves MD When:??Within 1 to 2 weeks Why: call office to schedule. Where: [address] [phone] Medications What How Much When Why Instructions Next Dose Changed metoprolol (metoprolol succinate 50 mg oral capsule, extended release) 1 Capsules Oral (given by mouth) Every day 05/01 @ 9am Unchanged albuterol (ProAir HFA 90 mcg/ inh inhalation aerosol) 2 Puffs Inhale (breathe in) Every 4 hours as needed for as needed for wheezing as needed Unchanged aspirin 81 Milligrams Every day 05/01 @ 9am Unchanged clopidogrel (Plavix 75 mg oral tablet) 1 tab Oral (given by mouth) Every day CAD (coronary artery disease) 05/01 @ 9am Unchanged colchicine (colchicine 0.6 mg oral tablet) 2 tab Oral (given by mouth) Once at first sign of gout flare followed by 1 tablet in 1 hour ?? Resume home dose Unchanged FLUoxetine (FLUoxetine 20 mg oral capsule) 1 Capsules Oral (given by mouth) Every day 05/01 @ 9am Unchanged insulin glargine (Toujeo Max SoloStar 300 units/ mL subcutaneous solution) 45 Units Subcutaneous (under the skin) Every day Resume home dose Unchanged insulin lispro (HumaLOG Cartridge 100 units/ mL injectable solution) 10 Units Subcutaneous (under the skin) 3 times a day before meals if eating more increase by 2 units if eating less decrease by 2 units ?? 04/30 @ 4:30 pm Unchanged loratadine (Claritin Reditab 5 mg oral tablet, disintegrating) 1 tab Oral (given by mouth) Every day as needed for as needed for allergy symptoms as needed Unchanged omeprazole (omeprazole 20 mg oral delayed release capsule) 1 Capsules Oral (given by mouth) Every day as needed for heartburn as needed Unchanged pyridoxine (pyridoxine 50 mg oral tablet) 1 tab Oral (given by mouth) Every day as needed for headache as needed Unchanged rosuvastatin (rosuvastatin 40 mg oral tablet) 1 tab Oral (given by mouth) Every day 04/30 @ 5pm Your Summary Your Care Team Admitting Physician - Abran Osorio NP Attending Physician - Ranjan Plaza DO Primary Care Physician - Anuradha [facility], Tang Alves MD Your Diagnosis Chest pain, rule out acute myocardial infarction HTN (hypertension) HLD (hyperlipidemia) Diabetes CAD (coronary artery disease) Discharge Vitals Temperature??(Temporal Artery) 97.7 ??F (36.5 ??C) Heart Rate??(Peripheral) 72 Respiratory Rate?? 16 Blood Pressure?? 139/71?? Weight?? 142.00 lb (64.4 kg) Allergies linagliptin??(Head pain) metFORMIN??(Diarrhoea) BEE VENOM PROTEIN (HONEY BEE) ibuprofen??(Urticaria) Patient/Glazier Stained Glass Signature Patient Name:CRYSTAL BARRIENTOS I have received this information and my questions have been answered. Patient/Glazier Stained Glass Name: Patient/Glazier Stained Glass Signature: Relationship to Patient: Witness Name/Signature: Date: Electronically Signed on: 04/30/2023 13:54 EDTSigned by:JUAN wind field service manager Note * Lindsay Barragan: PERFORM Event Display: Case Management Note Authored Date: Discharge instructions/education on chest pain reviewed with patient at bedside. Patient engaged ineducation and able to verbalize teach back of most of reviewed material. Some things needed to be repeated. Patient reports she fell out of her bathtub and hit her head several month ago and has had memory problems since then. Patient is aware of follow-up with PCP. Patient is aware of referral that is being sent to cardiology for a nuclear stress test???pending appointment cardiopulmonary officewill call her to schedule but they are booking out until June. Hospitalist notified of this andwanted patient to see Dr. Medley been prior patient scheduled for this Friday 05/04 with Faustina when new, PROJECT FINANCIAL ANALYST for cardiology patient is aware of this appointment. Patient denies any home medications or personal belongings in the safe at [facility]. Contact information has been provided. CUPOLA MELTER HELPER notified to removepatient's IV VH prior to departure. Patient's daughter picked providing transportation home. Patient is aware of 1 medication dose change of metoprolol-increased. Other medications reviewed. Patient denies any additional questions or concerns at this time. Requested that Dr. Plaza send in prescription for Plavix as patient reports she does not have this available at home. * Nika Roy: PERFORM Event Display: Case Management Note Authored Date: [id number] Interqual criteria for observation met EKG study * Event Display: Telemetry Strips Please click on link to view image. * Event Display: Telemetry Strips Please click on link to view image. * Event Display: Telemetry Strips Please click on link to view image. Pharmacology Progress note * Emily Dawson PharmD: PERFORM Event Display: Pharmacy Progress Note Authored Date: [id number] Pharmacy Progress Note Med history updated with [facility] and the patient Electronically Signed on 04/30/23 10:56 AM Emily Dawson PharmD * Bonita Hadley: PERFORM Event Display: Pharmacy Progress Note Authored Date: Pharmacy Progress Note ??Pharmacy Home Medication List Update for Medication Reconciliation ?Person Interviewed:??patient and pharmacy ?Quality of Interview/accuracy of medication list:??Fair ?Sources used to compile medication list: [x] Cerner medication list [ ]SureScripts [ ]PCP/Specialist list [x]Retail pharmacy [ ]Patient list [ ]MAR [x]Other: ?Additional Notes:??patient states they only take 81 mg aspirin, metoprolol, and 2 insulins that she obtains from [facility]. [facility] does not have record of her picking up insulin medication. The home medication list is now updated to the best of my knowledge and is ready to be reconciled by the provider Bonita Quiñones. Jorge Hadley Electronically Signed on 04/29/23 03:22 PM Bonita Hadley Respiratory therapy Hospital Progress note * Dheeraj Disla: PERFORM Event Display: Respiratory Therapy Progress Note Authored Date: [id number] ??FLOYD CRYSTAL C 77 Years MEASURED Body Mass Index: 26 kg/m2 (04/28/23 13:38:00) Height: 157 cm (04/28/23 13:38:00) Weight: 62.9 kg (04/28/23 22:35:00) DOSING Height/Length Dosin cm (04/28/23 13:43:23) Weight Dosin.5 kg (04/28/23 13:43:24) Respiratory Shift Summary Breath Sounds: Clear Shift Treatments: None Shift Events: None Respiratory Protocol??Aerosol Therapy Assessment and Scoring Lung History (0) No Lung History and Non-Smoker Breath Sounds (0) Clear in all landrum Respiratory Rate (0) Less than or equal to 18 Modified Giovanni Scale or Observed Dyspnea (0) None Oxygen Therapy (0) Room air, at baseline home O2, post-op, or CHF Home Respiratory Medications (0) None Inhaler Use Assessment ? Clinically Stable? Yes? Can take a slow deep breath on command? Yes? Can perform a 3 second breath hold? Yes Respiratory total Score: 0 Respiratory Guidelines 0-2 pts - No Therapy indicated Electronically Signed on 04/28/23 11:02 PM Dheeraj Disla Cardiac stress echo study * Event Display: Echocardiogram Stress Authored Date: [id number] Physician Emergency department Note * Matthias Thompson MD: PERFORM Event Display: ED Note Physician Authored Date: [id number] CRYSTAL BARRIENTOS :1945 Age:77 years Sex:Female Visit Date:04/28/2023 Primary Care Physician: Anuradha HEBERT, Tang Alves MD HPI 77-year-old female with history of CAD (s/p??two stents) presents for evaluation of chest pain since yesterday that has worsened today.??Pain is worsened by physical activity and relieved by rest.??Patient states that she skipped her aspirin this morning took 1 sublingual nitroglycerin which apparently made minimal to no change in her symptoms. ?? M/S/F/SocHx notable for: please see HPI; remainder reviewed with patient and in chart.? ROS: Negative constitutional, eye, cardiovascular, pulmonary, GI, , MSK, skin, neurologic, psychiatric, endocrine unless noted in the HPI. ?? Exam Gen: Pleasant, non-toxic appearing, resting comfortably. HEENT: NC, AT, PEERL, EOMI. Resp: Clear to auscultation bilaterally, normal work of breathing. Card: RRR with no M/R/G, no crackles in lung bases, no pedal edema, no JVD appreciated.?? GI: NT/ND Vascular: Both ankles, calves, and thighs of equal size, no calf tenderness to palpation bilaterally. MSK: No chest wall TTP. No visible deformities, strength and tone WNL. Skin: Normal color with no visible lesions. Neuro: AO x 3, no facial asymmetry, vision and hearing WNL. Psych: Mood and affect appropriate.? Labs WBC 5.8, Hb 15.3, sodium 135, potassium 4.0, AST 13, ALT 21, ALP 111, total bilirubin 0.7, lipase 45, glucose 441, creatinine 1.08. Troponin (1:53 PM) <5.0, troponin (4:05 PM) <5.0, troponin (7:07 pm) <5.7. D-dimer 2.41 Imaging EKG: SR at 84 bpm, no FL segment depressions, no new ST segment changes, new LBBB, or T-wave changes that would suggest acute ischemia. ?? CXR:??no focal consolidation.? CTA Chest:?? 1.??No evidence of pulmonary embolus to the segmental level.?? 2.??No aneurysm of the aorta.?? 3.??No dissection of the aorta. ?? MDM Previous chart, nursing note, and vitals reviewed.?? A:??77-year-old female with history of CAD (s/p??two stents) presents for evaluation of chest pain since yesterday that has worsened today.? DDx and Evaluation:?? * ACS - doubt ACS given a non-ischemic EKG and negative serial troponins. * UA -moderate concern for unstable angina, however there is no discernible change in symptoms withnitroglycerin. The patient has an elevated HEART score??5??(Hx -??1, EKG -??0, age -??2, risk factors -??2, troponin -??0; 30 day MACE: 12-16.6%). * Pericarditis - consider pericarditis unlikely given the lack of FL segment depressions as well asthe absence of diffuse ST-segment elevations, lack of reduction of pain when supine, and lack of a friction rub. * Myocarditis - unlikely given the negative troponin and an EKG without characteristic FL-segment or ST-segment changes.?? * Dissection -no evidence by imaging.?? * PE??? Wells' (Signs & Sx of DVT -??0, PE is #1 or equally likelihood -??0, HR > 100 -??0, immobilization of >=3 days or surgery in last 28 days -??0, prior DVT or PE -??0, hemoptysis -??0, malignancy w/ tx in last 6 mo or palliative -??0)??0; as such a D-dimer was ordered for PE evaluation, this was positive, however the subsequent CTA was without evidence of acute pathology. * Mediastinal Air - no evidence by imaging or auscultation.?? * Pneumothorax - no evidence by imaging or physical exam.?? * MSK - doubt given lack of reproducibility on exam.?? * Endocarditis - no identifiable risk factors, patient afebrile, no new murmurs appreciated on exam; doubt. * GI (Esophageal rupture, GERD) - esophageal rupture effectively excluded given the lack of mediastinal widening, non-toxic appearance, and lack of identifiable risk factors. While not definitively excluded, further evaluation of GERD is deferred to an outpatient setting.? ED Course:?Patient given 324 mg ASA, 1 dose of nitroglycerin given without appreciable change in symptoms, patient was then given 50 mcg fentanyl for treatment of chest pain. ?Positive D-dimer result noted shortly prior to anticipated CT scan downtime (3 PM with anticipated end time 7 PM for maintenance), unable to obtain CTA prior to CT shut down for maintenance. As the patient's vital signs were stable and within acceptable limits, the ECG was without clear evidence of heart strain and the patient had a negative troponin and as there was a low clinical suspicion for PE, observation was felt to be appropriate with a several hour delay in imaging. Additionally, the patient had a positive D-dimer in July 2022, and while this was apparently ordered in thesetting of a DVT evaluation, she had no evidence of DVT by Doppler ultrasound.?Vital signs remained stable and within clinically acceptable limits. ?CTA without evidence of PE. Patient remained pain-free and asymptomatic will be on the duration of action of the nitroglycerin and fentanyl that was given. ?8:10 PM with??ongoing chest pain, declining pain medications at the present time. ?? Disposition: Admitted for further care. ?? Impression: chest pain. ?? (please reference below for remainder of encounter information) Critical Care Time Organ system(s): Cardiopulmonary?? Intervention: Assessment of the patient, interpretation of studies, communication related to patient care. Time: 30 minutes were spent directly related to patient care exclusive of separately billed procedures. Electronically Signed on 04/28/23 08:19 PM Matthias Thompson MD Exercise stress test study * Deborah Ha L: PERFORM Davie Petersen MD: MODIFY, MODIFY Davie Petersen MD: MODIFY Event Display: Stress ECG Authored Date: [id number] CRYSTAL BARRIENTOS :1945 Age:77 years Sex:Female Visit Date:04/28/2023 Primary Care Physician: Tang Weiss MD Ordering Provider :?Abran Osorio PROJECT FINANCIAL ANALYST ? ETT?Taiwo Protocol modified Indication:??Chest Pain MPHR:??153 85% MPHR:??130 ?Stage ??Speed ??Incline ??Heart rate ??Blood Pressure ??Comments ??1 ??2.7 km/hr ??10% ?104 170??/80 ?2 ??4.02 km/hr ??12% ?109 170??/80 ?3 ??5.47 km/hr ??14% ?/ ?4 ??6.76 km/hr ??16% ?/ ?5 ??8.05 km/hr ??18% ?/ ?6 ??8.85 km/hr ??20% ?/ ?7 ??9.65 km/hr ??22% ?/ ?8 ??10.46 km/hr ??24% ?/ ?Recovery ?81 131??/81 ?2:00 ?/ ?4:00 ?/ ? Total Time:??4:19 Max Heart Rate:??123 % of MPHR achieved:??80 METS:3.4 ?? Functional Capacity: ??Poor?? Peak BP:??179/80 Chest Pain: ??Present, but not limiting? Reason Test Terminated:??patient wanted to stop ST Changes: ??1??mm Direction, leads:?? Arrhythmias:??SR Heart rate and BP Response:??appropriate Calderón Treadmill Score: ?MODERATE RISK, with predicted 5-year survival >90%.? Summary Impression:??Non-diagnostic ETT due to inability to achieve 85% MPHR. No evidence if ischemia at submaximal heart??rate. Recommend??lexiscan nuclear stress test.??Associated echo images reassuring. Electronically Signed on 04/29/23 01:07 PM Deborah Ha Electronically Signed on 04/29/23 02:51 PM Davie Petersen MD Electronically Signed on 04/29/23 04:57 PM Davie Petersen MD Reviewed by: Davie Petersen MD, Heather L Progress note * Enmanuel Tinoco MD: PERFORM Event Display: Progress Note - Physician Authored Date: [id number] CRYSTAL BARRIENTOS :1945 Age:77 years Sex:Female Visit Date:04/28/2023 Primary Care Physician: Anuradha [facility], Tang Alves MD Subjective Patient seen and examined in follow-up for CAD,??chest pain, hypertension, hyperlipidemia, diabetes.?? Patient is lying comfortably in bed and reported??no recurrence of her chest pain??since shortlyafter admission.?? Patient reports that this pain she had??is very similar to the pain she had whenshe required 2 stents previously.?? She denies having nausea, vomiting, palpitation, fever or chills.?? Her pain was reproducible when I palpated??her left anterior chest??and with??resistance to movement with cross lateral??upper arm??motion. Review of Systems 14 point review of systems was reviewed entirely and only pertinent for above. Objective Vitals & Measurements T:??36.5?C ??(Temporal Artery)?? TMIN:??36.4?C ??(Temporal Artery)?? TMAX:??37.2?C ??(Temporal Artery)?? HR:??84??(Peripheral)?? RR:??16?? BP:??110/53?? SpO2:??94%?? WT:??62.9??kg?? O2 Therapy:??Room air?? Physical Exam General: Patient is awake, alert, slightly built and in no acute distress HEENT: Normocephalic, eyes with pupils equal and reactive to light symmetrically, EOMI, sclera anicteric. Oropharynx: clear, mucous membranes moist Neck: Supple without JVD. Trachea midline Lungs: Clear to auscultation and percussion. W/O wheeze, rhonchi or rale Heart: Regular rate and rhythm without M/R/G.?Palpation of left anterior chest reproduces some of her pain.?? With her upper extremity??going??medially towards the right side??against resistance??it also reproduces her pain. Abdomen: Normal contour, soft and nontender to palpation with no palpable mass or hepatosplenomegaly. No guarding or rebound. Bowel sounds positive in all quadrants. Extremities: No CCE Skin: Normal color, warm and dry. Neuro: Cranial nerves II through XII grossly intact, no focalized motor deficits. No tremor. Psych: Normal affect and mood. No abnormal thought processes. Remote and recent memory intact. Lab Results Last 48 Hours?? Chemistry ? Event Name?? Event Result?? Date/Time?? Sodium Level 139 mmol/L 04/29/23 07:00:00 Potassium Level 3.9 mmol/L 04/29/23 07:00:00 Chloride Level 104 mmol/L 04/29/23 07:00:00 CO2 28 mmol/L 04/29/23 07:00:00 Alk Phos 111 unit/L 04/28/23 13:53:00 AST 13 unit/L??Low 04/28/23 13:53:00 ALT 21 unit/L 04/28/23 13:53:00 BUN 17 mg/dL 04/29/23 07:00:00 Glucose Level 219 mg/dL??High 04/29/23 07:00:00 Creatinine Level 0.92 mg/dL 04/29/23 07:00:00 eGFR AA 64 04/29/23 07:00:00 eGFR Non-AA 64 04/29/23 07:00:00 Calcium Level 8.7 mg/dL 04/29/23 07:00:00 Phosphorus Level 4.6 mg/dL 04/29/23 07:00:00 Protein Total 7 g/dL 04/28/23 13:53:00 Albumin Level 3.5 g/dL 04/28/23 13:53:00 Bilirubin Total 0.7 mg/dL 04/28/23 13:53:00 Lipase Level 45 unit/L 04/28/23 13:53:00 Magnesium Level 1.8 mg/dL 04/29/23 07:00:00 Glucose POC 229 mg/dL??High 04/29/23 11:56:00 Troponin-I 6.2 pg/mL 04/29/23 07:00:00 ? Hematology ? Event Name?? Event Result?? Date/Time?? WBC 7.3 x10^3/mcL 04/29/23 07:00:00 RBC 4.5 x10^6/mcL 04/29/23 07:00:00 Hgb 13.9 g/dL 04/29/23 07:00:00 Hct 39.8 % 04/29/23 07:00:00 MCV 88.1 fL 04/29/23 07:00:00 MCH 30.8 pg 04/29/23 07:00:00 MCHC 34.9 g/dL 04/29/23 07:00:00 RDW-CV 12.8 % 04/29/23 07:00:00 Platelets 157 x10^3/mcL 04/29/23 07:00:00 Neutro Auto 60.3 % 04/29/23 07:00:00 Lymph Auto 30 % 04/29/23 07:00:00 Starke Auto 7 % 04/29/23 07:00:00 Eos, Auto 1.9 % 04/29/23 07:00:00 Basophil Auto 0.5 % 04/29/23 07:00:00 Imm Gran Auto 0.3 % 04/29/23 07:00:00 Neutro Absolute 4.4 x10^3/mcL 04/29/23 07:00:00 ? Coagulation/Thrombosis ? Event Name?? Event Result?? Date/Time?? D Dimer, (Quant.) 2.41 mg/L??High 04/28/23 13:53:00 ? All Other Results ? Event Name?? Event Result?? Date/Time?? SARS-CoV-2 (COVID-19) RNA (ID Now) Not Detected 04/28/23 20:35:10 ? Assessment/Plan 1.??Chest pain, rule out acute myocardial infarction??R07.9 Resident on admission. ??Patient with previous history of CAD requiring stent placement.?? Trendingtroponin.?? EKG nonacute.?? Continue telemetry.?? No abnormalities noted.?? Patient did have??echocardiogram stress in a.m.??but was nondiagnostic??because she could not tolerate??the treadmill.?? Recommendation was for nuclear medicine stress which has been ordered??and hopefully will be??performed in a.m.?? Continue patient's other??current medications. ??N.p.o. after midnight??and no caffeine. Ordered: NM Myocardial SPECT Exercise Stress Multi, 04/30/23 6:00:00 EDT, In AM, Reason: chest pain, Transport Mode: Stretcher, Patient has IV, Chest pain, rule out acute myocardial infarction, Exam to be performed outside organization? ?? 2.??HTN (hypertension)??I10 ??? Essential,??continue current medical therapy ?? 3.??HLD (hyperlipidemia)??E78.5 ??? Mixed, continue statin ?? 4.??Diabetes??E11.9 Type II, without hyperglycemia, continue fingerstick blood sugar, sliding scale ?? Electronically Signed on 04/29/23 04:00 PM Enmanuel Tinoco MD History and physical note * Abran Osorio PROJECT FINANCIAL ANALYST: PERFORM Event Display: History and Physical Authored Date: [id number] CRYSTAL BARRIENTOS :1945 Age:77 years Sex:Female Visit Date:04/28/2023 Primary Care Physician: Anuradha [facility], Tang Alves MD Chief Complaint pt states that starting yesterday had some pain in chest, left side. pt states that pain comes and goes, also having some SOB and dizziness. has a couple of stents in her heart History of Present Illness 77-year-old female patient who presents to the emergency department today with complaints of left-sided chest pain??that has been ongoing for 2 days. ??She points to the??upper left chest in a singlespot as to where her pain is. ??States that has been constant and she has felt nauseous with some shortness of breath. ??EKG was negative for any acute changes,??troponins have been negative. ??Patient was positive with a D-dimer??although CTA of the chest was negative for any acute process or pulmonary emboli. ??Her medical history is significant for hypertension, coronary artery disease, hyperlipidemia, diabetes.?? She denies any fever, chills denies any vomiting??denies weakness or dizzinessand denies changes in urinary or bowel habits. ??Case was discussed with the ER provider prior to admission. ??She will be placed in the observation status??for chest pain rule out ACS??with further testing to include??echocardiogram and a stress test in the morning.?? Continue to trend her cardiacenzymes as well as??electrolytes and CBC. Review of Systems Constitutional: ??No fevers, ??No chills, ??No sweats Eye: ??No recent visual problems ENT: ??No ear pain, ??No nasal congestion, ??No sore throat Respiratory:?subjective shortness of breath, ??No cough Cardiovascular:??Left sided chest pain, ??No palpitations, ??No syncope Gastrointestinal:??Positive for??nausea, ??No vomiting, ??No diarrhea Genitourinary: ??No hematuria Noah/Lymph: ??No bruising tendency, ??No swollen lymph glands Endocrine: ??No excessive thirst, No excessive hunger Musculoskeletal: No back pain, No neck pain, No joint pain, No muscle pain, No decreased range of motion Integumentary: ??No rash, ??No pruritus, ??No abrasions Neurologic: Alert & oriented X 4 Psychiatric: ??No anxiety, ??No depression Physical Exam Vitals & Measurements T:??36.7?C ??(Temporal Artery)?? HR:??86??(Peripheral)?? HR:??87??(Monitored)?? RR:??20?? BP:??125/57?? SpO2:??94%?? HT:??157.000??cm?? WT:??63.50??kg?? BMI:??26.000?? Pain Score:??7?? O2 Therapy:??Room air?? General: Alert and oriented, well nourished, no [...] intact. Psychiatric: Cooperative, appropriate mood and affect. Assessment/Plan 1.??Chest pain, rule out acute myocardial infarction??R07.9 -??Placed in the observation status -Maintain cardiac telemetry -Trend cardiac enzymes -N.p.o. except for medications -Echocardiogram, stress test in the morning -Aspirin 81 mg p.o. daily -Nitroglycerin??sublingual as needed for increased chest pain -Normal saline at 100 cc/h -Tylenol for fever or headache, Zofran for nausea and vomiting -Oxycodone for pain -Continue Plavix -CBC, BMP, mag, Phos, troponin in the morning 2.??HTN (hypertension)??I10 -??Pressure currently under control. -Continue metoprolol 3.??HLD (hyperlipidemia)??E78.5 -??Continue statins 4.??Diabetes??E11.9 -??Q. ACHS blood sugar checks with sliding scale for coverage Orders: aspirin, 81 mg = 1 tab, Oral, Tab-Chew, Daily, First Dose: 04/29/23 9:00:00 EDT, Routine Plavix, 75 mg = 1 tab, Oral, Tab, Daily, First Dose: 04/29/23 9:00:00 EDT, Routine metoprolol succinate 25 mg oral tablet, extended release, 25 mg = 1 tab, Oral, Tab-ER, Daily, FirstDose: 04/29/23 9:00:00 EDT, Routine Echocardiogram Stress, 04/28/23 21:18:00 EDT, Stop date 04/28/23 21:18:[address] in Observation, Observation, Observation, Earnest, Enmanuel Price MD, 04/28/23 21:09:00 EDT, 04/28/23 21:09:00 EDT, 04/28/23 21:09:00 EDT, 1 midnight or less Troponin-I, Blood, Routine, 04/29/23 7:00:00 EDT, Once, Lab Collect Home medications have been reviewed and reconciled within the medical record ?? We will continue to monitor the patient with additional orders based on clinical presentation ?? Patient is a full code with family listed as healthcare surrogate Problem List/Past Medical History Ongoing No qualifying data Historical No qualifying data Medications Inpatient aspirin, 81 mg= 1 tab, Oral, Daily metoprolol succinate 25 mg oral tablet, extended release, 25 mg= 1 tab, Oral, Daily nitroglycerin 0.4 mg sublingual tablet, 0.4 mg= 1 tab, SL, every 5 min, PRN Plavix, 75 mg= 1 tab, Oral, Daily Home aspirin, 81 mg, Daily metoprolol succinate, 25 mg, Daily Plavix 75 mg oral tablet, 75 mg= 1 tab, Oral, Daily, 12 refills sertraline Allergies linagliptin??(Head pain) metFORMIN??(Diarrhoea) BEE VENOM PROTEIN (HONEY BEE) ibuprofen??(Urticaria) Social History Alcohol Never Electronic Cigarette/Vaping Electronic Cigarette Use: Never. Substance Use Never Tobacco Never tobacco user Tobacco Use:. Family History Mother had a history of??coronary artery disease father had a history of diabetes Immunizations Vaccine Date Status influenza virus vaccine, inactivated 05/05/2011 Recorded influenza virus vaccine, inactivated 05/28/2010 Recorded Lab Results Test Name Test Result Date/Time WBC 5.8 x10^3/mcL 04/28/2023 13:53 EDT RBC 4.9 x10^6/mcL 04/28/2023 13:53 EDT Hgb 15.3 g/dL 04/28/2023 13:53 EDT Hct 43.4 % 04/28/2023 13:53 EDT MCV 88.4 fL 04/28/2023 13:53 EDT MCH 31.2 pg 04/28/2023 13:53 EDT MCHC 35.3 g/dL 04/28/2023 13:53 EDT RDW-CV 12.8 % 04/28/2023 13:53 EDT Platelets 165 x10^3/mcL 04/28/2023 13:53 EDT Neutro Auto 62.7 % 04/28/2023 13:53 EDT Lymph Auto 29.7 % 04/28/2023 13:53 EDT Starke Auto 5.2 % 04/28/2023 13:53 EDT Eos, Auto 1.4 % 04/28/2023 13:53 EDT Basophil Auto 0.7 % 04/28/2023 13:53 EDT Imm Gran Auto 0.3 % 04/28/2023 13:53 EDT Neutro Absolute 3.6 x10^3/mcL 04/28/2023 13:53 EDT D Dimer, (Quant.) 2.41 mg/L 04/28/2023 13:53 EDT Sodium Level 135 mmol/L 04/28/2023 13:53 EDT Potassium Level 4.0 mmol/L 04/28/2023 13:53 EDT Chloride Level 100 mmol/L 04/28/2023 13:53 EDT CO2 30 mmol/L 04/28/2023 13:53 EDT Alk Phos 111 unit/L 04/28/2023 13:53 EDT AST 13 unit/L 04/28/2023 13:53 EDT ALT 21 unit/L 04/28/2023 13:53 EDT BUN 15 mg/dL 04/28/2023 13:53 EDT Glucose Level 441 mg/dL 04/28/2023 13:53 EDT Creatinine Level 1.08 mg/dL 04/28/2023 13:53 EDT eGFR AA 53 04/28/2023 13:53 EDT eGFR Non-AA 53 04/28/2023 13:53 EDT Calcium Level 8.9 mg/dL 04/28/2023 13:53 EDT Protein Total 7.0 g/dL 04/28/2023 13:53 EDT Albumin Level 3.5 g/dL 04/28/2023 13:53 EDT Bilirubin Total 0.7 mg/dL 04/28/2023 13:53 EDT Lipase Level 45 unit/L 04/28/2023 13:53 EDT Troponin-I 5.7 pg/mL 04/28/2023 19:07 EDT Troponin-I <5.0 pg/mL 04/28/2023 16:05 EDT Troponin-I <5.0 pg/mL 04/28/2023 13:53 EDT SARS-CoV-2 (COVID-19) RNA (ID Now) Not Detected 04/28/2023 20:35 EDT Diagnostic Results ?? XR Chest 1 View PROCEDURE INFORMATION:?? Exam: XR Chest?? Exam date and time: 04/28/2023 1:52 PM?? Age: 77 years old?? Clinical indication: Left side chest pain? TECHNIQUE:?? Imaging protocol: Radiologic exam of the chest.?? Views: 1 view.? COMPARISON:?? CR XR CHEST 1 VW 12/11/2022 9:13 PM? FINDINGS:?? Tubes, catheters and devices: Surgical device in the humeral heads?? bilaterally? Lungs: Unremarkable. No consolidation.?? Pleural spaces: Unremarkable. No pleural effusion. No pneumothorax.?? Heart/Mediastinum: Unremarkable. No cardiomegaly.?? Bones/joints: Unremarkable.? IMPRESSION:?? No focal consolidation. [1] ?? CT Angio Chest PROCEDURE INFORMATION:?? Exam: CTA Chest With Contrast?? Exam date and time: 04/28/2023 7:19 PM?? Age: 77 years old?? Clinical indication: Pesob + chest pain w/ +dimer? TECHNIQUE:?? Imaging protocol: Computed tomographic angiography of [...] clinical indication); or iterative?? reconstruction.?? Contrast material: OMNIPAQUE 350; Contrast volume: 80 ml; Contrast?? route: INTRAVENOUS (IV); ? REPORTING DATA:?? Count of CT and Cardiac NM exams in prior 12 months: This patient has?? received 2 known CTs and 0 known cardiac nuclear medicine studies in?? the 12 months prior to the current study.? COMPARISON:?? CT CTA CHEST W AND/OR WO CONTRAST 08/06/2021 11:35 AM? FINDINGS:?? Pulmonary arteries: No evidence of pulmonary embolus to the segmental?? level.?? Aorta: No aneurysm of the aorta. No dissection of the aorta.? Lungs: Unremarkable. No consolidation. No masses.?? Pleural spaces: Unremarkable. No pneumothorax. No pleural effusion.?? Heart: Unremarkable. No cardiomegaly. No pericardial effusion.?? Coronary arteries: Coronary artery calcifications may indicate?? coronary artery disease.?? Lymph nodes: Unremarkable. No enlarged lymph nodes.? Bones/joints: Internal fixation device in the right humeral head?? Soft tissues: Unremarkable.? IMPRESSION:?? 1. ?? No evidence of pulmonary embolus to the segmental level.?? 2. ?? No aneurysm of the aorta.?? 3. ?? No dissection of the aorta.?? [2] ECG EC04/28/23: Sinus rhythm...normal P axis, V-rate ??60- 99 Inferior infarct, old...Q >35mS, II III aVF ? Reviewed By: Matthias Thompson MD ??04/28/2023 ??15:44:04 [1]??XR Chest 1 View; DomainUser, Generated 04/28/2023 13:52 EDT [2]??CT Angio Chest; [employer]User, Generated 04/28/2023 19:19 EDT Electronically Signed on 04/28/23 09:55 PM Abran Osorio PROJECT FINANCIAL ANALYST * Enmanuel Tinoco MD: PERFORM Event Display: History and Physical Authored Date: [id number] I saw and evaluated Ms Barrientos??on 04/29/2023??. ??The case was discussed on rounds with TERRELL Osorio??. I personally reviewed the HPI, PH, FH, SH, ROS and medications. I repeated pertinent portions of the examination and reviewed the relevant imaging and laboratory data. I agree with the findings, assessment and plan as documented. At this time, based on her current clinical condition and treatment, I expect the patient to remain in the hospital more than two days.?? Electronically Signed on 04/29/23 03:54 PM Enmanuel Tinoco MD Discharge summary * Ranjan Plaza DO: PERFORM Event Display: Discharge Summary Authored Date: [id number] CRYSTAL BARRIENTOS :1945 Age:77 years Sex:Female Visit Date:04/28/2023 Primary Care Physician: Tang Weiss MD Hospital Course Discharge Summary ?? Date of admission: 04/28/2023 ?? Date of discharge:??04/30/2023? Discharge diagnoses:??Chest pain in the setting of??known coronary artery disease ?? Consultations:??None ?? Operations/procedures:??Attempted??stress echocardiogram??unsuccessful due to patient's inability to walk on a treadmill on??04/29/2023 ?? Summary of presentation and course ?? 77-year-old woman??with a history of??left-sided chest pain,??coronary artery disease, history of coronary stents,??hypertension,??hyperlipidemia, and diabetes??who has been admitted for??risk assessment??of??her coronary artery disease with stress testing. ?? Unfortunately the stress echo done yesterday??was nondiagnostic given her inability to reach 85% ofher estimated??heart rate target.?? There were no EKG changes??or??echocardiographic??changes to suggest ischemia at the suboptimal??heart rate that she did achieve. ?? Today she was scheduled for??a??chemical??nuclear stress test??but unfortunately??this cannot be done??today or tomorrow??and this will get her set up for an outpatient stress test. ?? Her troponin??has never left the normal range. ??Chest pain appearred to be reproducible. ?? Disposition:??She will discharge to follow-up with her primary care doctor, Dr. Lign,??and her primary policeman,??Dr. Petersen.?? We will get her set up for an outpatient??nuclear stress test. ?? Greater than 30 minutes was spent on the day of discharge in coordinating care and arranging outpatient follow-up. Physical Exam Vitals & Measurements T:??36.4?C ??(Temporal Artery)?? TMIN:??36.1?C ??(Temporal Artery)?? TMAX:??37.4?C ??(Temporal Artery)?? HR:??73??(Peripheral)?? RR:??16?? BP:??105/93?? SpO2:??95%?? WT:??64.4??kg?? Pain Score:??4?? O2 Therapy:??Room air?? Social History Alcohol Never Electronic Cigarette/Vaping Electronic Cigarette Use: Never. Substance Use Never Tobacco Never tobacco user Tobacco Use:. Discharge Plan 1.??Chest pain, rule out acute myocardial infarction??R07.9 2.??HTN (hypertension)??I10 3.??HLD (hyperlipidemia)??E78.5 4.??Diabetes??E11.9 5.??CAD (coronary artery disease)??I25.10 Orders: atorvastatin, 40 mg = 1 tab, Oral, Tab, Daily, First Dose: 04/30/23 17:00:00 EDT, Routine FLUoxetine, 20 mg = 1 cap, Oral, Cap, Daily for 30 days, First Dose: 04/30/23 10:15:00 EDT, Stop Date: 05/30/23 8:59:00 EDT, Physician Stop, Routine magnesium oxide, 400 mg = 1 tab, Oral, Tab, BID for 30 days, First Dose: 04/30/23 21:00:00 EDT, Stop Date: 05/30/23 20:59:00 EDT, Physician Stop, Routine Discharge Activity Restrictions, No Strenuous Exercise Discharge Diet Instruction, Diabetic Diet Discharge Patient, 04/30/23 13:17:00 EDT, Home Independently, Home Independently Follow-up with as planned. Cardiac stress test as scheduled. All Diagnoses This Visit Chest pain, rule out acute myocardial infarction HTN (hypertension) HLD (hyperlipidemia) Diabetes CAD (coronary artery disease) Patient Education Chest Wall Pain Follow Up With When Contact Information Anuradha [facility], Tang Alves MD Within [address] [phone]- [phone] Additional Instructions: Medication Reconciliation Changed metoprolol (metoprolol succinate 50 mg oral capsule, extended release)1 Capsules Oral (given by mouth) every day. ?? Unchanged albuterol (ProAir HFA 90 mcg/inh inhalation aerosol)2 Puffs Inhale (breathe in) every 4 hours as needed as needed for wheezing. ?? [id number] Milligrams every day. ?? clopidogrel (Plavix 75 [...] needed as needed for allergy symptoms. ?? omeprazole (omeprazole 20 mg oral delayed release capsule)1 Capsules Oral (given by mouth) every day as needed heartburn. ?? pyridoxine (pyridoxine 50 mg oral tablet)1 tab Oral (given by mouth) every day as needed headache. ?? rosuvastatin (rosuvastatin 40 mg oral tablet)1 tab Oral (given by mouth) every day. Electronically Signed on 04/30/23 01:19 PM Ranjan Plaza DO Patient Care team information Care Team Personnel Name: Tang Weiss MD Position: No Access Member Role: Primary Care Physician Address: Address: [address] Name: Matthias Thompson MD Position: Physician Member Role: ED Physician Name: Pau Dumont RN Position: Nurse Member Role: ED Nurse Care Team Related Persons Name: DENNIS FRAGA
--- OUTSIDE RECORDS SUMMARY | 2024-05-02 14:22 | XMS_ITS | Continuity of Care Document ---
Author Organization [facility] Address [address] [place] [address] Care Team Providers Care Wall Crane Operator Name Role Phone Tang Feliciano Primary Care Physician Encounter [facility] Date(s): 06/11/22 - 06/11/[address] [id number] Discharge Disposition: Home or Self Care Attending Physician: Tali Sofia LIVE IN CAREGIVER Admitting Physician: Tali Sofia NP Referring Physician: Tali Sofia LIVE IN CAREGIVER Allergies, Adverse Reactions, Alerts Substance Reaction Severity [...] Member Role: Primary Care Physician Address: Address: Psychiatric [address] [place], [place] [address] Care Team Related Persons Name: DENNIS FRAGA
--- OUTSIDE RECORDS SUMMARY | 2024-05-02 14:22 | XMS_ITS | Encounter Summary ---
Author Organization [facility] Address [address] [place] [address] Care Team Providers Care Information Technology Administrator Name Role Phone Jamal Padilla MD Primary Care Provider [phone] Encounter Details Date Type Department Care Team (Late st Contact Info) Description 11/21/2019 Lab Requisition [facility] Pathology & Laboratory Medicine - [facility] [address] [place] [address] Silver Francis MD [address] [place] [id number] Encounter for other general examination Social History Tobacco Use Types Packs/Day Years [...] Diagnosis Comments DO NOT ORDER STANDALONE - SANTINO COVID TESTING Today 11/21/2019 12:54 EDT Encounter for other general examination COVID-19 TESTING Today 11/21/2019 12:5 4 EDT Encounter for other general examination documented in this encounter Results * DO NOT ORDER STANDALONE - SANTINO COVID TESTING (11/21/2019 12:54 EDT) COVID-19 rt-PCR Result Not Detected 11/22/2019 17:18 EDT [facility] Comment:This test has not be en FDA cleared or approved. This test has been authorized by FDA under an EUA for use by authorized laboratories. This test has been authorized only for the detection of nucleic acid from SARS-CoV-2, not for any other viruses or pathogens. This test is only authorized for the duration of the declaration that circumstances exist justifying the authorization of emergency use of in vitro diagnostic tests for detection and/or diagnosis of COVID-19 under Section 564(b)(1) of the Act, 21 U.S.C. ?? 360bbb-3(b)(1), unless the authorization is terminated or revoked sooner. Factsheets for healthcare providers: https://www.fda.gov/media/275002/download Factsheets for patients: https://www.fda.gov/media/617146/download Swab ENTIRE NASOPHARYNX / Unknown 11/21/2019 12:54 EDT 11/21/2019 21:53 EDT Silver Francis MD MICROBIOLOGY - GEN ERAL ORDERABLES [facility] [address] [place] [address] * COVID-19 TESTING (11/21/2019 12:54 EDT) COVID-19 rt-PCR Result Not Detected 11/22/2019 17:34 EDT [facility] Comment:This test has not be en FDA cleared or approved. This test has been authorized by FDA under an EUA for use by authorized laboratories. This test has been authorized only for the detection of nucleic acid from SARS-CoV-2, not for any other viruses or pathogens. This test is only authorized for the duration of the declaration that circumstances exist justifying the authorization of emergency use of in vitro diagnostic tests for detection and/or diagnosis of COVID-19 under Section 564(b)(1) of the Act, 21 U.S.C. ?? 360bbb-3(b)(1), unless the authorization is terminated or revoked sooner. Factsheets for healthcare providers: https://www.fda.gov/media/235687/download Factsheets for patients: https://www.fda.gov/media/310377/download Swab ENTIRE NASOPHARYNX / Unknown 11/21/2019 12:54 EDT 11/21/2019 21:53 EDT Silver Francis MD MICROBIOLOGY - GEN ERAL ORDERABLES Performing Organization Address City/State/[facility] Co de Phone Number [facility] [address] [place] [address] documented in this encounter Visit Diagnoses Diagnosis Encounter for other general examination documented in this encounter Care Teams Information Technology Administrator Relationship Specialty Start Date End Date Jamal Padilla MD PCP - General 06/11/15 documented as of this encounter
--- OUTSIDE RECORDS SUMMARY | 2024-05-02 14:22 | XMS_ITS | Clinical Summary ---
Author Organization [facility] Address [address] [place] [address] Care Team Providers Care Mill Dresser Name Role Phone Jamal Padilla MD Primary Care Provider [phone] Social History Tobacco Use Types Packs/Day Years Used Date Smoking Tobacco: Never Assessed Interpersonal Safety Answer Date Record ed Physically Hurt Never 03/04/2020 Verbally Threaten Not on file 03/04/2020 Sex and Gender Information Value Date Recorded Sex Assigned at Not on file Gender Identity Not on file Sexual Orientation Not on file Plan of Treatment Health Maintenance Due Date Last Done Comments Hepatitis C Screen 1945 RSV Immunization ( o r 60+ Years) (1 - 1-dose 60+ series) 2005 Fall Risk Screening 2010 COVID-19 Vaccine (2022-24 season) 2023 Care Teams Mill Dresser Relationship Specialty Start Date End Date Jamal Padilla MD PCP - General 06/11/15
--- OUTSIDE RECORDS SUMMARY | 2024-05-02 14:22 | XMS_ITS | Encounter Summary ---
Author Organization [facility] Address [address] [place] [address] Care Team Providers Care University Controller Name Role Phone Jamal Padilla MD Primary Care Provider [phone] Encounter Details Date Type Department Care Team (Latest Contact Info) Description 01/17/2016 13:26 EDT - 01/17/2016 23:59 EDT Hospital Encounter [address] [address] Unknown, Provider, Discharge Disposition: Home or Self Care Social History Tobacco Use Types Packs/Day Years Used Date Smoking Tobacco: Never Assessed Sex and Gender Information Value Date Recorded Sex Assigned at Not on file Gender Identity Not on file Sexual Orientation Not on file documented as of this encounter Discharge Disposition Disposition Code Departure Means Destination Home or Self [facility] documented in this encounter Plan of Treatment Not on file documented as of this encounter Visit Diagnoses Not on filedocumented in this encounter Care Teams University Controller Relationship Specialty Start Date End Date Jamal Padilla MD PCP - General 06/11/15 documented as of this encounter
--- OUTSIDE RECORDS SUMMARY | 2024-05-02 14:22 | XMS_ITS | Encounter Summary ---
Author Organization [facility] Address [address] [place] [address] Care Team Providers Care Equal Opportunity Director Name Role Phone Jamal Paidlla MD Primary Care Provider [phone] Encounter Details Date Type Department Care Team (Late st Contact Info) Description 08/02/2020 Lab Requisition [facility] Pathology & Laboratory Medicine - [address] [address] Nakia Anthony MD [address] [place] [phone] Encounter for other general examination Social History [...] Priority Date/Time Associated Diagnosis Comments SURGICAL PATHOLOGY Today 08/02/2020 10 :00 EST documented in this encounter Results * SURGICAL PATHOLOGY (08/02/2020 10:00 EST) Final Diagnosis A. ARTERY, TEMPORAL, RIGHT, BIOPSY: - Negative for arteritis. See comment. 08/06/2020 9:17 EST [facility] Diagnosis Comment The findings are of arterial tissue with medial calcifications. There are no diagnostic features of active or healing arteritis. Preliminary result of No active arteritis was communicated by phone to Dr. Jose Luis Anthony by Dr. Keila Mg on 08/04/2020 at 9:58AM. 08/06/2020 9:17 [facility] Attestation There was significant resident/fellow involvement in the diagnostic evaluation of this case. By the signature below, the attending physician certifies that they have personally conducted a gross and/or microscopic examination of the described specimens and rendered or confirmed the above diagnosis. 08/06/2020 9:17 [facility] at 0917 Clinical History Right-sided headaches 08/06/2020 9:17 [facility] Gross Description A. Received in formalin labelled with proper patient identification (initials J, G) and temporal artery biopsy, right is a martinez-red segment of vessel (1.9 cm in length x 0.1 cm} in diameter). Serially sectioned and entirely submitted in A1-A4. ANALI FERGUSON(ASCP) 08/02/2020 19:30 08/06/2020 9:17 [facility] Resident/Josué w: Guille Groves MD 08/06/2020 9:17 [facility] Performing Lab [facility] 08/06/2020 9:17 [facility] Scanned Images 08/06/2020 9:17 [facility] Tissue ENTIRE ARTERY / Unknown 08/02/2020 10:00 EST 08/02/2020 18:55 EST Nakia Anthony MD PATHOLOGY ORDER JOSÉ [facility] [address] [place] [address] documented in this encounter Visit Diagnoses Diagnosis Encounter for other general examination documented in this encounter Care Teams Equal Opportunity Director Relationship Specialty Start Date End Date Jamal Padilla MD PCP - General 06/11/15 documented as of this encounter
--- OUTSIDE RECORDS SUMMARY | 2024-05-02 14:22 | XMS_ITS | Encounter Summary ---
Author Organization [facility] Address [address] [place] [address] Care Team Providers Care Grant Specialist Name Role Phone Jamal Padilla MD Primary Care Provider [phone] Encounter Details Date Type Department Care Team (Late st Contact Info) Description 01/17/2016 Results Only [facility] [phone] Alvarez De La Vega MD [address] [place] [phone] Social History Tobacco Use Types Packs/Day Years Used Date Smoking Tobacco: Never Assessed Sex and Gender Information Value Date Recorded Sex Assigned at Not on file Gender Identity Not on file Sexual Orientation Not on file documented as of this encounter Plan of Treatment Not on file documented as of this encounter Procedures Procedure Name Priority Date/Time Associated Diagnosis Comments SURGICAL PATHOLOGY Routine 01/17/2016 9:11 EDT documented in this encounter Results * SURGICAL PATHOLOGY (01/17/2016 9:11 EDT) Pathology Report: SURGICAL PATHOLOGY REPORT Reports generated via electronic interface contain original data; however they are lacking the format of the original report. Caution should be taken when reading/interpret ing unformatted reports. Name: ? CRYSTAL BARRIENTOS ? Accession #: ? [id number] ? : ? 1945 (Age: 70) ??F ? Collect Date: ? 01/17/2016 ? Location: ? [facility] ? Receive Date: ? 01/18/2016 ? Provider: ALVAREZ DE LA VEGA MD Copy to: JENNIFER FREITAS MD ? Final Pathologic Diagnosis: GASTROESOPHAGEAL JUNCTION, BIOPSIES: - ??Squamous mucosa with features of reflux esophagitis. - ??Gastric type glandular epithelium with reactive epithelial changes. - ??No intestinal metaplasia or dysplasia identified. Document reviewed and electronically signed by: IMELDA DELCID MD Report ??Date: 01/18/2016 17:39 By the signature above, the attending physician certifies that he/she has personally conducted a gross and/or microscopic examination of the described specimens and rendered or confirmed the above diagnosis. Specimen(s) Received: Bx GE junction Clinical History: Reflux Gross Description: ? Received in formalin labelled with proper patient identification (initials J, G) and GE junction are two fragments of martinez-pink tissue (each 0.2 x 0.2 x 0.2 cm). The specimen is submitted entirely in 1. 01/18/2016 9:53 AM End of Report [facility] 01/17/2016 9:11 EDT 01/18/2016 9:11 EDT Alvarez De La Vega MD PATHOLOGY ORDERABLES [facility] [address] [place] [address] documented in this encounter Visit Diagnoses Not on filedocumented in this encounter Care Teams Grant Specialist Relationship Specialty Start Date End Date Jamal Padilla MD PCP - General 06/11/15 documented as of this encounter
--- OUTSIDE RECORDS SUMMARY | 2024-05-02 14:22 | XMS_ITS | Referral Summary ---
Author Organization [facility] Address [address] [place] [address] Care Team Providers Care Dentist/Owner Name Role Phone Jamal Padilla MD Primary Care Provider [phone] Social History Tobacco Use Types Packs/Day Years Used Date Smoking Tobacco: Never Assessed Interpersonal Safety Answer Date Record ed Physically Hurt Never 03/04/2020 Verbally Threaten Not on file 03/04/2020 Sex and Gender Information Value Date Recorded Sex Assigned at Not on file Gender Identity Not on file Sexual Orientation Not on file Plan of Treatment Not on file Care Teams Dentist/Owner Relationship Specialty Start Date End Date Jamal Padilla MD PCP - General 06/11/15
--- OUTSIDE RECORDS SUMMARY | 2024-05-02 14:22 | XMS_ITS | Continuity of Care Document ---
Author Organization [facility] Address [address] [place] [address] Care Team Providers Care Director Of Estate Name Role Phone [facility], Tang Alves Primary Care Physician Encounter [facility] Date(s): 05/04/23 - 05/04/23 [facility] [address] [place] [address] Discharge Disposition: Home Allergies, Adverse Reactions, Alerts [...] # 30 tab, 12 Refill(s), Pharmacy: [id number], 157, cm, 04/28/23 13:43:00 EDT, [...] Member Role: Primary Care Physician Address: Address: [address] Care Team Related Persons Name: DENNIS FRAGA
--- OUTSIDE RECORDS SUMMARY | 2024-05-02 14:22 | XMS_ITS | Encounter Summary ---
Author Organization [facility] Address [address] [place] [address] Care Team Providers Care Tail Dogger Name Role Phone Unavailable Primary Care Provider Unavailabl e Encounter Details Date Type Department Care Team (Late st Contact Info) Description 09/30/2001 Results Only [facility] [address] [place] [address] Estrellita Padilla MD [address] [place] [address],[address] [place] [address] Social History Tobacco Use Types Packs/Day Years Used Date Smoking Tobacco: Never Assessed Sex and Gender Information Value Date Recorded Sex Assigned at Not on file Gender Identity Not on file Sexual Orientation Not on file documented as of this encounter Plan of Treatment Not on file documented as of this encounter Procedures Procedure Name Priority Date/Time Associated Diagnosis Comments CYTOPATHOLOGY Routine 09/30/2001 0:00 EST documented in this encounter Results * CYTOPATHOLOGY (09/30/2001 0:00 EST) Pathology Report: CYTOPATHOLOGY REPORT Reports generated via electronic interface contain original data; however they are lacking the format of the original report. Caution should be taken when reading/interpreti ng unformatted reports. Name: ? CRYSTAL BARRIENTOS ? Accession #: ? [id number] : ? 1945 (Age: 56) ??F ?Collect Date: ? 09/30/2001 Location: ? [facility] ? Receive Date: ? 10/04/2001 Provider: ?ESTRELLITA PADILLA MD Copy to: ? Specimen/Source: ?Conventional Pap Test, Vagina Last Menstrual Period: ? 20 years ago Previous Gynecologic Pathology: ? 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 Hysterectomy: 20 years ago Other: ? Client ID#: [id number] ? SPECIMEN ADEQUACY ? Satisfactory for Evaluation - assessment of transformation zone component not applicable ( e.g. atrophy, vaginal sample, hysterectomy) GENERAL CATEGORIZATION ? Negative for Intraepithelial Lesion or Malignancy ? Document reviewed and electronically signed by: ? ESTEVAN Simpson(ASCP) ? Report Date: ??10/07/2001 10:06 End of Report [facility] 09/30/2001 10/04/2001 Estrellita Padilla MD PATHOLOGY ORDERABLES [facility] [address] [place] [address] documented in this encounter Visit Diagnoses Not on filedocumented in this encounter
--- OUTSIDE RECORDS SUMMARY | 2024-05-02 14:22 | XMS_ITS | Encounter Summary ---
Author Organization [facility] Address [address] [place] [address] Care Team Providers Care Assistant Unit Forester Name Role Phone Jamal Padilla MD Primary Care Provider [phone] Encounter Details Date Type Department Care Team (Latest Contact Info) Description 01/01/2016 7:46 EDT - 01/01/2016 23:59 EDT Hospital Encounter [address] [address] Unknown, Provider, Discharge Disposition: Home or Self Care Social History Tobacco Use Types Packs/Day Years Used Date Smoking Tobacco: Never Assessed Sex and Gender Information Value Date Recorded Sex Assigned at Not on file Gender Identity Not on file Sexual Orientation Not on file documented as of this encounter Discharge Disposition Disposition Code Departure Means Destination Home or Self Correction documented in this encounter Plan of Treatment Not on file documented as of this encounter Visit Diagnoses Not on filedocumented in this encounter Care Teams Assistant Unit Forester Relationship Specialty Start Date End Date Jamal Padilla MD PCP - General 06/11/15 documented as of this encounter
--- OUTSIDE RECORDS SUMMARY | 2024-05-02 14:23 | XMS_ITS | Encounter Summary ---
Author Organization [facility] Sulema patel [place] [id number] Care Team Providers Care J2Ee Programmer Name Role Phone Tang Ling MD Primary Care Provider [phone] Reason for Visit * Auth/Cert (Routine) Specialty Diagnoses / Procedures Referred By Vanesa soto Referred To Contact Diagnoses Screening for cardiovascular condition [Z13.6] Coronary artery disease, unspecified vessel or lesion type, unspecified whether angina present, unspecified whether [place] or transplanted heart [I25.10] ASCVD (arteriosclerotic cardiovascular disease) [I25.10] Procedures PRG CATH PLMT LEFT HEART CATH & ARTS W/INJ & ANGIO IMG S&I CARDIAC CATHETERIZATION CORONARY ANGIOGRAPHY; W LHC,POSSIBLE PCI (WRVU 5.6) Jamal Vital MD [facility] [place] [address] [facility] Referral ID Status Reason Start Date Expiration Date Visits Re quested Visits Authorized [id number] 1 1 Encounter Details Date Type Department Care Team (Latest Contact Info) Description 08/11/2023 10:23 AM EST - 08/12/2023 10:57 AM EST Hospital Encounter [place] [id number] Jamal Vital MD [facility] [place] [address] Screening for cardiovascular condition; Coronary artery disease, unspecified vessel or lesion type, unspecified whether angina present, unspecified whether [place] or transplanted heart; ASCVD (arteriosclerotic cardiovascular disease) Discharge Disposition: Home Social History Tobacco Use Types Packs/Day Years Used Date Smoking Tobacco: Never Smokeless Tobacco: Never Alcohol Use Standard Drinks/Week Comments No 0 (1 standard drink = 0.6 oz pur e alcohol) social DH IPV Inpatient Questions Answer Date Recorded Does Anyone Try to Keep You From Having Contact with Others or Doing Things Outside Your Home? unable to answer (comment required) 08/11/2023 Feels Threatened by Someone unable to an swer (comment required) 08/11/2023 Feels Unsafe at Home or Work/School unab le to answer (comment required) 08/11/2023 Physical Signs of Abuse Present no 08/11/2023 Sex and Gender Information Value Date Recorded Sex Assigned at Not on file Gender Identity Not on file Sexual Orientation Not on file documented as of this encounter Last Filed Vital Signs Vital Sign Reading Time Taken Comments Blood Pressure 106/60 08/12/2023 7:28 AM EST Pulse 78 08/12/2023 7:28 AM EST Temperature 36.7 ??C (98.1 ??F) 08/12/2023 7:28 AM ES T Respiratory Rate 16 08/12/2023 7:28 AM EST Oxygen Saturation 95% 08/12/2023 7:28 AM EST Inhaled Oxygen Concentration - - Weight 65.8 kg (145 lb) 08/11/2023 10:55 AM EST Height 157.5 cm (5' 2) 08/11/2023 10:55 AM EST Body Mass Index 26.52 08/11/2023 10:55 AM EST documented in this encounter Discharge Summaries * Manuelito Arizmendi MD - 08/12/2023 10:00 AM EST Images from the original note were not included. Discharge Summary Patient Name: Lou Mo Patient Age: 78 y.o. Language: [place] Race: White Ethnicity: Not nor Admit date: 08/11/2023 Discharge date and time: 08/12/2023 Attending Physician: Jamal Vital MD Follow-up Recommendations for Providers: - Patient should be on dual antiplatelet therapy with aspirin 81 mg daily indefinitely and plavix 75 mg daily for at least 1 year. - She had a low-grade fever and WBC count with negative UA and CXR. If she has symptoms concerning for infection she should be worked up by her PCP or more urgently if indicated. Inpatient Provider Contact Information: For questions regarding this document or issues relating to this hospitalization on the Medical Service, please contact your inpatient physician through the [facility] Dupligraph Operator . Issues afterhours and on weekends will be handled by the publishing systems analyst on-call. Discharge Diagnoses (Hospital Problems) and Secondary Diagnoses (Chronic Problems): Active Hospital Problems Diagnosis CAD (coronary artery disease) Resolved Hospital Problems No resolved problems to display. Active Non-Hospital Problems Diagnosis Stress at home S/P angioplasty with stent Chest pain CIS - Chest Pain CIS - DM CIS - Dyslipidemia CIS - GERD CIS - HTN Operations/Major Procedures: Patient Name: Lou Mo : [id number] MR#: [id number] Case Date: 08/11/2023 Dupligraph Operator: Surgeon(s) and Role: * Jamal Vital MD - Primary * Manuelito Arizmendi MD - Fellow - Assisting Preoperative diagnosis: Screening for cardiovascular condition [Z13.6] Coronary artery disease, unspecified vessel or lesion type, unspecified whether angina present, unspecified whether [place] or transplanted heart [I25.10] ASCVD (arteriosclerotic cardiovascular disease) [I25.10] Postoperative diagnosis: * same* Procedure(s) performed: Left heart cath Coronary angiography Stent insertion, coronary Access: right radial A time-out was conducted prior to the start of the procedure to verify the correct patient and procedure, procedure location, and all relevant critical information. Preliminary findings: LM: mild LAD: proximal 90%, distal 75% Lcx: mild RCA: mild LVEDP 7mm Hg Intervention: The patient tolerated the procedures smoothly and was transferred from the cardiac catheterization lab to the next level of care in stable condition. No evident early complications. Full report to follow. Jamal Vital MD History of Presentation: Lou oM is a 78 y.o. female referred for cardiac catheterization by Faustina Andrews APRN for evaluation of chest pain. Past medical history: ASCVD s/p LAD and D1 PCI 2015, C 2017 with patent prior stents and 45% mid LAD lesion negative byiFR and FFR HTN HLD T2DM Hx of PE on Eliquis Presented to the ED at [facility] in April for chest pain. Normal troponins. TTE stress withsubmaximal level of stress (80% MPHR) did not demonstrate ischemia. Normal resting TTE per report. Subsequent SPECT 05/2023 was also normal. Continues to have chest pain & is referred for cath for that reason. There have not been any changes in health status since last seen in clinic 08/06. Hospital Course: Patient was admitted to same day after undergoing cardiac catheterization. female is s/p PCI to LADwith good result. Post procedurally she had nausea and felt unwell with low-grade fever and elevated WBC on post-op day 1. She felt better at this point and CXR and UA were normal. She has no furtherfevers and was given instructions for follow-up if she has any localizing symptoms or recurrence ofsymptoms. There were no post procedure access site problems. Patient given instructions for follow up. Vital Signs at Discharge: BP: 106/60, Heart Rate: 78, Temp: 36.7 ??C (98.1 ??F), Resp: 16, BMI (Calculated): 26.52 Height: 157.5 cm (5' 2) (08/11/23 1055) Weight: 65.8 kg (145 lb) (08/11/23 1055) Functional and Cognitive Status: Patient is at baseline functional and cognitive status Important Studies and Lab Data: Labs: Last 3 wbc, hgb, hct plt Recent Labs 08/12/23 0035 08/11/23 1034 WBC 15.7* 7.4 HGB 13.0 13.8 HCT 36.2 40.0 PLATELET 115* 156 Last 3 Lytes Recent Labs 08/12/23 0035 08/11/23 1034 NA 137 143 K 3.3* 3.8 CL 103 106 CO2 20* 27 BUN 17 13 CREATININE 0.91 0.88 Pending Studies and Lab Data: None Discharge Conditions/Prognosis: Stable for discharge home Discharge to: Home Updated Allergies/ADRs: Allergies Allergen Reactions Hymenoptera Allergenic Extract Anaphylaxis Trulicity [Dulaglutide] Other (See Comments) headaches Cis Free Text Allergy Hymenoptera (Bee) Stings. Ibuprofen HIVES Immunizations Given this Hospitalization: Immunization History Administered Date(s) Administered Influenza PF, Split (High Dose) 05/29/2016 Influenza Vaccine, Whole 05/29/2008 Discharge Medications: Your Medications New Medications Dose Details clopidogreL 75 mg tablet Commonly known as: Plavix Take 1 tablet by mouth daily. 75 mg Quantity: 90 tablet Refills: 3 Continued medications, unchanged Dose Details aspirin EC 81 mg EC (DR) tablet Take 81 mg by mouth daily. 81 mg Refills: 0 citalopram 20 mg tablet Commonly known as: CeleXA Take 20 mg by mouth Daily. 20 mg Refills: 0 empagliflozin 10 mg tablet Commonly known as: Jardiance Take 1 tablet by mouth daily. 10 mg Quantity: 60 tablet Refills: 5 EPINEPHrine 0.3 mg/0.3 mL Auto-Injector EpiPen 2-Gwyn 0.3 mg/0.3 mL injection, auto-injector Take 1 auto as needed by injection route. Refills: 0 FreeStyle Natalie 2 [place] Misc 1 each by Other route daily. Indications: diabetes mellitus Generic drug: flash glucose scanning reader 1 each Quantity: 1 each Refills: 0 FreeStyle Natalie 2 Sensor Kit 1 each by Other route every 14 days. Indications: diabetes mellitus Generic drug: flash glucose sensor 1 each Quantity: 2 kit Refills: 0 insulin aspart U-100 100 unit/mL (3 mL) Insulin Pen Commonly known as: NovoLOG Novolog Flexpen U-100 Insulin per sliding scale Refills: 0 Insulin Toujeo Max U-300 SoloStar 300 unit/mL (3 mL) Insulin Pen Inject subcutaneously. Generic drug: insulin glargine U-300 conc Refills: 0 Insulin Tresiba U-100 100 unit/mL Solution Tresiba U-100 Insulin Generic drug: insulin degludec Refills: 0 metoprolol succinate XL 50 mg ER 24 hr tablet Commonly known as: Toprol-XL Take 0.5 tablets by mouth daily. 25 mg Quantity: 90 tablet Refills: 3 nitroGLYcerin 0.4 mg sublingual tablet Commonly known as: Nitrostat Place 1 tablet under the tongue every 5 minutes as needed for Chest pain. 0.4 mg Quantity: 90 tablet Refills: 12 rosuvastatin 40 mg tablet Commonly known as: Crestor Take 40 mg by mouth daily. 40 mg Refills: 0 STOPPED Medications diclofenac [address] tablet Commonly known as: Dori Smoking Status at Discharge: Social History Tobacco Use Smoking Status Never Smokeless Tobacco Never Instructions Given to Patient at Discharge: Patient Instructions Changes in Medications You will take aspirin 81 mg daily indefinitely. You will need to take clopidogrel (plavix) 75 mg daily for at least one year. It is very important that you take these two medications (aspirin and clopidogrel) every day without missing any doses. Missing a dose could result in stent thrombosis and possibly . Radial Access for Heart Cath Activity Try to avoid bending your wrist for the first 12-24 hours after the procedure to allow the artery to fully heal. Do not participate in active sports for 48 hours. Do not lift anything greater than 5 lbs. Catheter Insertion Area Care Take the dressing off of the catheter insertion site the morning following the procedure. Leave thesite open to air. If the site is oozing you may cover it with a band aid. You may take a shower if you wish. Look for signs of infection over the next several days. It is uncommon to have any visible blood at the site, any obvious bleeding is abnormal. A bruise around the wrist or small lump under the skin is normal: they generally disappear in 3-5 days. Expect some mild tenderness over the area where the catheter was inserted. You will notice this after the local anesthetic (numbing medicine) wears off. This should improve during the 24-48 hours after the procedure. You may use acetaminophen (tylenol) if needed. Contact your doctor if the discomfort worsens. Problems to Watch for If there is bright red blood flowing from the catheter insertion area: *stop what you are doing *hold pressure steadily on the area for 15 minutes *call for help *if the bleeding does not stop in 15 minutes call 911 for an ambulance. If there is swelling with black and blue color at the catheter insertion site, there may be bleeding inside. Contact the doctor if there is any increase in size. Look at the insertion site for the first few days at home. Signs of infection are: *redness *swelling *yellow, white, green or brown foul smelling drainage. *increased soreness If you think there is an infection, take your temperature. Then call your doctor. The limb on the side where you had your catheterization should look and feel normal in color, sensation, and temperature. If your hand or fingers become cool, pale, blue or change color contact your doctor. If you are having numbness or tingling in your fingers or hand contact your doctor. Follow-up: No future appointments. Your Inpatient Doctor: Jamal Vital MD Your Primary Care Provider: Tang Ling MD [phone] For questions regarding this document or issues relating to this hospitalization on the Medical Service, please contact your inpatient physician through the [facility] Dupligraph Operator . Issues afterhours and on weekends will be handled by the Hospitalist staff on-call. General Instructions None Discharge References/Attachments None documented in this encounter Discharge Instructions * Patient Instructions* Manuelito Arizmendi MD - 08/11/2023 1:18 PM EST Changes in Medications You will take aspirin 81 mg daily indefinitely. You will need to take clopidogrel (plavix) 75 mg daily for at least one year. It is very important that you take these two medications (aspirin and clopidogrel) every day without missing any doses. Missing a dose could result in stent thrombosis and possibly . Radial Access for Heart Cath Activity Try to avoid bending your wrist for the first 12-24 hours after the procedure to allow the artery to fully heal. Do not participate in active sports for 48 hours. Do not lift anything greater than 5 lbs. Catheter Insertion Area Care Take the dressing off of the catheter insertion site the morning following the procedure. Leave thesite open to air. If the site is oozing you may cover it with a band aid. You may take a shower if you wish. Look for signs of infection over the next several days. It is uncommon to have any visible blood at the site, any obvious bleeding is abnormal. A bruise around the wrist or small lump under the skin is normal: they generally disappear in 3-5 days. Expect some mild tenderness over the area where the catheter was inserted. You will notice this after the local anesthetic (numbing medicine) wears off. This should improve during the 24-48 hours after the procedure. You may use acetaminophen (tylenol) if needed. Contact your doctor if the discomfort worsens. Problems to Watch for If there is bright red blood flowing from the catheter insertion area: *stop what you are doing *hold pressure steadily on the area for 15 minutes *call for help *if the bleeding does not stop in 15 minutes call 911 for an ambulance. If there is swelling with black and blue color at the catheter insertion site, there may be bleeding inside. Contact the doctor if there is any increase in size. Look at the insertion site for the first few days at home. Signs of infection are: *redness *swelling *yellow, white, green or brown foul smelling drainage. *increased soreness If you think there is an infection, take your temperature. Then call your doctor. The limb on the side where you had your catheterization should look and feel normal in color, sensation, and temperature. If your hand or fingers become cool, pale, blue or change color contact your doctor. If you are having numbness or tingling in your fingers or hand contact your doctor. Follow-up: No future appointments. Your Inpatient Doctor: Jamal Vital MD Your Primary Care Provider: Tang Ling MD [phone] For questions regarding this document or issues relating to this hospitalization on the Medical Service, please contact your inpatient physician through the [facility] Dupligraph Operator . Issues afterhours and on weekends will be handled by the Hospitalist staff on-call. documented in this encounter Medications at Time of Discharge Medication Sig Dispensed Refills Start Date End Date clopidogreL (Plavix) 75 mg tablet Take 1 tablet by mouth daily. 90 tablet 3 08/11/2023 insulin glargine U-300 conc (Insulin Toujeo Max U-300 SoloStar) 300 unit/mL (3 mL) Insulin Pen Inject 54 Units subcutaneously nightly. insulin aspart U-100 (NovoLOG) 100 unit/mL (3 mL) Insulin Pen Inject subcutaneously 3 times daily (before meals). Sliding scale citalopram (CeleXA) 20 mg Tablet Take 20 mg by mouth Daily. 01/11/2020 EPINEPHrine 0.3 mg/0.3 mL Auto-Injector EpiPen 2-Gwyn 0.3 mg/0.3 mL injection, auto-injector Take 1 auto as needed by injection route. nitroGLYcerin (NITROSTAT) 0.4 mg Tablet, Sublingual Place 1 tablet under the tongue every 5 minutes as needed for Chest pain. 90 tablet 12 05/29/2016 aspirin 81 mg EC tablet Take 81 mg by mouth daily. rosuvastatin (CRESTOR) 40 mg tablet Take 40 mg by mouth daily. FreeStyle Natalie 2 [place] MiscIndications:diabe guido mellitus 1 each by Other route daily. Indications: diabetes mellitus 1 each 05/20/2022 FreeStyle Natalie 2 Sensor KitIndications:diabet es mellitus 1 each by Other route every 14 days. Indications: diabetes mellitus 2 kit 05/20/2022 metoprolol succinate (TOPROL-XL) 50 mg Tablet Sustained Release 24 hrIndications:Coronar y artery disease, angina presence unspecified, unspecified vessel or lesion type, unspecified whether [place] or transplanted heart,Chest pain, unspecified type Take 0.5 tablets by mouth daily. 90 tablet 3 09/16/2018 04/26/2024 empagliflozin (Jardiance) 10 mg Tablet Take 1 tablet by mouth daily. 60 tablet 5 05/20/2022 09/21/2023 insulin degludec (Insulin Tresiba U-100) 100 unit/mL Solution Sliding scale between 2-10 units 09/21/2023 documented as of this encounter Progress Notes * Manuelito Arizmendi MD - 08/12/2023 9:32 AM EST CARDIOLOGY PROGRESS NOTE Patient info: Name: Lou Mo : 1945 Date of Admission: 08/11/2023 ( Hospital Day 0 days ) Responsible Attending:Jamal Vital MD ID: Lou Mo is a 78 y.o. female Active Hospital Problems Diagnosis CAD (coronary artery disease) Resolved Hospital Problems No resolved problems to display. 24 Hour Events/Subjective: - Feels better this AM. - Continues to have some mild dizziness, but no other new symptoms. - I discussed with her yesterday and again today, she notes that she had nausea and headaches priorto the cath and that she was just feeling dizzy with minimal movement which has been an ongoing issue (this is reflected in her cardiology note as well). - She notes no fevers overnight or chills. - She has no chest pain at rest today. - She notes she vomited last night. Inpatient Medications: Scheduled Meds: aspirin EC 81 mg Oral Daily citalopram 20 mg Oral Daily clopidogreL 75 mg Oral Daily insulin lispro 1-4 Units Subcutaneous 4 Times Daily AC & HS PRN Meds: ondansetron, influenza vaccine (65 yrs +), glucose 40% oral geL OR dextrose OR glucagon Vitals: Last value Range last 24 hrs Temperature Temp: 36.7 ??C (98.1 ??F) Temp: [36.2 ??C (97.2 ??F)-38.2 ??C (100.8 ??F)] Heart Rate Heart Rate: 78 Heart Rate: [65-121] Blood Pressure BP: 106/60 BP: (103-154)/(52-82) Respiratory Rate Resp: 16 Resp: [14-24] SpO2 SpO2: 95 % SpO2: [87 %-100 %] Ins/Outs: Intake/Output Summary (Last 24 hours) at 08/12/2023 0932 Last data filed at 08/12/2023 0915 Gross per 24 hour Intake 300 ml Output 550 ml Net -250 ml Physical Exam: General - No acute distress. Well-groomed/nourished. Speech is normal HEENT - EOMI. No scleral icterus. Noninjected. Moist membranes. No cervical LAD Respiratory: Clear to auscultation bilaterally. Good effort/excursion. Cardiac - RRR, normal S1/S2, no audible murmur, gallops or rubs. No JVD. No PATTY. Abdomen - Soft, nontender/nondistended, normal active bowel sounds. Extremities - Warm. No clubbing or cyanosis. Radial Pulses: 2+ B/L; DP Pulses: 2+ B/L Neuro - A&O x4, no focal deficits Labs: CBC: Recent Labs 08/12/23 0035 08/11/23 1034 WBC 15.7* 7.4 HGB 13.0 13.8 PLATELET 115* 156 Chemistry: Recent Labs 08/12/235 08/11/23 1034 NA 137 143 K 3.3* 3.8 CL 103 106 CO2 20* 27 BUN 17 13 CREATININE 0.91 0.88 GLUCOSE 265* 186 Recent Labs 08/12/233408/11/23 1034 CALCIUM 8.7 9.4 Endocrine: Recent Labs 08/12/23 0035 TSH 1.41 Pertinent radiology/diagnostic studies: Telemetry: NSR overnight EKG 08/11/22: NSR, no ischemic changes CXR: No acute process Assessment: 78 yo female with CAD, prior PE (not on AC currently), HTN, HLD, DM2 who was monitored overnight for post-operative feeling unwell. She is feeling significantly better today with a good night sleep as well as food (she did not sleep the night prior to the cath and had not eaten anything since the night prior as well). She did notably have a low grade fever after the cath and with a WBC today withneutrophil predominance. She has no other signs of infection (wrist site looks great), no clear cough or pain with urination. We are running a basic infectious work-up with a UA and CXR. She notably has a normal neurologic exam and in discussing with her the dizziness has been one of the issues that has Plan: - CXR and UA today. - Continue plavix and ASA for as long as tolerated. # Others DVT- GI- Activity- Nutrition- Lines- PT/OT- Consults- Dispo- CODE STATUS: Attempt Cardiopulmonary Resuscitation - Inpatient Manuelito Arizmendi MD 08/12/2023 9:32 AM documented in this encounter H&P Notes * Manuelito Arizmendi MD - 08/11/2023 1:14 PM EST Interventional Cardiology Post-PCI H&P Reason for Admission: s/p PCI History: Lou Mo is a 78 y.o. female referred for cardiac catheterization by Faustina Andrews APRN for evaluation of chest pain. Past medical history: ASCVD s/p LAD and D1 PCI 2015, C 2017 with patent prior stents and 45% mid LAD lesion negative byiFR and FFR HTN HLD T2DM Hx of PE on Eliquis Presented to the ED at [facility] in April for chest pain. Normal troponins. TTE stress withsubmaximal level of stress (80% MPHR) did not demonstrate ischemia. Normal resting TTE per report. Subsequent SPECT 05/2023 was also normal. Continues to have chest pain & is referred for cath for that reason. There have not been any changes in health status since last seen in clinic 08/06. This patient is admitted post PCI for IV hydration, pain management, access site management in the setting of anticoagulation, telemetry monitoring, evaluation of their medical condition, and cardiacrehabilitation. PMH: Patient Active Problem List Diagnosis CAD (coronary artery disease) Stress at home Family members living with her and not helping out. She lost her car due to finances. Grandson is borrowing her car. S/P angioplasty with stent Chest pain CIS - Chest Pain CIS - DM CIS - Dyslipidemia CIS - GERD CIS - HTN Outpatient Medications Marked as Taking for the 08/11/23 encounter (Hospital Encounter) Medication Sig Dispense Refill insulin aspart U-100 (NovoLOG) 100 unit/mL (3 mL) Insulin Pen Novolog Flexpen U- 100 Insulin per sliding scale citalopram (CeleXA) 20 mg Tablet Take 20 mg by mouth Daily. aspirin 81 mg EC tablet Take 81 mg by mouth daily. rosuvastatin (CRESTOR) 40 mg tablet Take 40 mg by mouth daily. 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 Tobacco Use Smoking status: Never Smokeless tobacco: Never Substance and Sexual Activity Alcohol use: No Comment: social Drug use: No Sexual activity: Not Currently Other Topics Concern Not on file Social History Narrative Not on file Social Determinants of Health Financial Resource Strain: Not on file Food Insecurity: Not on file Transportation Needs: Not on file Physical Activity: Not on file Intimate Partner Violence: Not on file Housing Stability: Not on file Family History Problem Relation Age of Onset Coronary Artery Disease Mother Macular Degeneration Mother Cataracts Mother Glaucoma Maternal Aunt Macular Degeneration Maternal Aunt Amblyopia Neg Hx Strabismus Neg Hx Retinal Detachment Neg Hx Physical Exam BP 149/72 Pulse 75 Temp 36.2 ??C (97.2 ??F) (Temporal) Resp 16 Ht 157.5 cm (5' 2) Wt 65.8 kg (145 lb) SpO2 (!) 89% BMI 26.52 kg/m?? General: well-appearing, NAD HEENT: NC/AT, anicteric sclerae, OP clear, MMM Neck: supple, no LAD, no bruits or JVD Lungs: clear without W/R/R CV: RRR, S1, S2, no M/R/G Abd: Nl BS, soft, NT, ND, obese Ext: no C/C/Edema Vascular: 2+ radial, femoral, and intact distal pulses b/l Assessment/ Plan: 1. CAD, s/p PCI to LAD - admit for monitoring - telemetry, serial ECGs, - continue dual antiplatelet therapy - IVF - continue BB, statin - monitor access site - cardiac rehab consult - anticipate discharge today -will need new RX for plavix at DC Manuelito Arizmendi MD 08/11/2023 1:15 PM * Xiomara Robison MD - 08/11/2023 11:06 AM EST Images from the original note were not included. Lou Mo is a 78 y.o. female referred for cardiac catheterization by Faustina Andrews APRN for evaluation of chest pain. Past medical history: ASCVD s/p LAD and D1 PCI 2015, [facility] 2017 with patent prior stents and 45% mid LAD lesion negative byiFR and FFR HTN HLD T2DM Hx of PE on Eliquis Presented to the ED at [facility] in April for chest pain. Normal troponins. TTE stress withsubmaximal level of stress (80% MPHR) did not demonstrate ischemia. Normal resting TTE per report. Subsequent SPECT 05/2023 was also normal. Continues to have chest pain & is referred for cath for that reason. There have not been any changes in health status since last seen in clinic 08/06. Patient denies any history of bleeding issues and specifically denies hematochezia, melena, hematemesis, intraabdominal bleeding, intracranial bleeding. Denies any history of kidney disease. Known diabetes, poorly controlled. Aspirin/clopidogrel/warfarin: Takes aspirin/plavix at home, last dose 08/10. Diabetic medications: Insulin Outpatient Medications Marked as Taking for the 08/11/23 encounter (Hospital Encounter) Medication Sig Dispense Refill insulin aspart U-100 (NovoLOG) 100 unit/mL (3 mL) Insulin Pen Novolog Flexpen U- 100 Insulin per sliding scale citalopram (CeleXA) 20 mg Tablet Take 20 mg by mouth Daily. aspirin 81 mg EC tablet Take 81 mg by mouth daily. rosuvastatin (CRESTOR) 40 mg tablet Take 40 mg by mouth daily. BP 132/60 Pulse 78 Temp 36.2 ??C (97.2 ??F) (Temporal) Resp 16 Ht 157.5 cm (5' 2) Wt 65.8 kg (145 lb) SpO2 95% BMI 26.52 kg/m?? 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 female here for cardiac catheterization for evaluation of chest pain. The indications, expected benefits, and potential risks of diagnostic or therapeutic catheterization were reviewed in detail with the patient. The potential for , myocardial infarction, arrhythmias, stroke, kidney failure, hemorrhage, allergic reaction to contrast, vascular complications and infection were reviewed in detail. The possibility of stenting and other percutaneous intervention, with associated risk, was reviewed. The possible need for emergent coronary artery bypass surgery wasreviewed. Alternatives were discussed and the patient's questions were answered. Following this discussion, the patient consented to the procedure and signed a form attesting to this. - Proceed as planned - Consent reviewed and signed - No obvious CI to DAPT - Sedation plan: moderate/conscious sedation - FULL CODE Xiomara Robison MD 08/11/2023 11:06 AM documented in this encounter Miscellaneous Notes * Plan of Care - Shelby Morfin RN - 08/12/2023 10:44 AM EST Pt discharged to home with all personal belongings and all discharge instructions. Both pt and pt'sdauter verbalize understanding re: all discharge instructions. * Consult Note - Aleena Kaufman RN - 08/12/2023 8:13 AM EST Lou Mo was seen today by Cardiac Rehabilitation for: S/p PCI Activity evaluation - Per [facility] nursing staff Educational packet regarding CAD, cardiac risk factors, and managing angina given to the patient. Reviewed managing angina /use of sl nitroglycerin. Mediterranean diet guidelines briefly reviewed. Given parameters for home exercise. Patient tells me that she is able to do some short walks around her house and she can walk to her daughter's home (~50 feet). Other than this, she does not get much activity. Her daughter assists with plant attendant. Participation in an outpatient cardiac rehabilitation program at [facility] was discussed. Patient declines a referral as she does not believe she is physically ready for this amount of exercise. I reviewed the home walk program with her. A cardiac rehab referral can be placed in the future when she is ready. * Brief Op Note - Jamal Vital MD - 08/11/2023 1:19 PM EST Images from the original note were not included. Preliminary Cardiac Catheterization Procedure Note: Patient Name: Lou Mo : [id number] MR#: [id number] Case Date: 08/11/2023 Dupligraph Operator: Surgeon(s) and Role: * Jamal Vital MD - Primary * Manuelito Arizmendi MD - Fellow - Assisting Preoperative diagnosis: Screening for cardiovascular condition [Z13.6] Coronary artery disease, unspecified vessel or lesion type, unspecified whether angina present, unspecified whether [place] or transplanted heart [I25.10] ASCVD (arteriosclerotic cardiovascular disease) [I25.10] Postoperative diagnosis: * same* Procedure(s) performed: Left heart cath Coronary angiography Stent insertion, coronary Access: right radial A time-out was conducted prior to the start of the procedure to verify the correct patient and procedure, procedure location, and all relevant critical information. Preliminary findings: LM: mild LAD: proximal 90%, distal 75% Lcx: mild RCA: mild LVEDP 7mm Hg Intervention: The patient tolerated the procedures smoothly and was transferred from the cardiac catheterization lab to the next level of care in stable condition. No evident early complications. Full report to follow. Jamal Vital MD documented in this encounter Plan of Treatment Upcoming Encounters Date Type Department Care Team (Late st Contact Info) Description 07/06/2024 1:30 PM EST Office Visit Cardiology at [address] [phone] Delta Reyes MD [facility] [place] [address] documented as of this encounter Procedures Procedure Name Priority Date/Time Associated Diagnosis Comments XR CHEST ONE VIEW Routine 08/12/2023 9:3 4 AM EST URINALYSIS MICROSCOPIC EXAM Routine 08/12/2023 8:00 AM EST URINALYSIS WITH REFLEX CULTURE Routine 08/12/2023 8:00 AM EST POCT GLUCOSE Routine 08/12/2023 6:56 AM EST TSH CASCADE Routine 08/12/2023 12:35 AM EST HEMOGRAM Routine 08/12/2023 12:35 AM EST DIFFERENTIAL, AUTOMATED Routine 08/12/2023 12:35 AM EST CBC (WITH DIFF) Routine 08/12/2023 12:35 AM EST BASIC METABOLIC PANEL Routine 08/12/2023 12:35 AM EST POCT GLUCOSE Routine 08/11/2023 9:16 PM EST EKG 12-LEAD Routine 08/11/2023 3:10 PM EST Coronary artery disease, unspecified vessel or lesion type, unspecified whether angina present, unspecified whether [place] or transplanted heart EKG 12-LEAD Routine 08/11/2023 1:28 PM EST ASCVD (arteriosclerotic cardiovascular disease) CARDIAC CATHETERIZATION Routine 08/11/2023 1:12 PM EST Screening for cardiovascular condition Coronary artery disease, unspecified vessel or lesion type, unspecified whether angina present, unspecified whether [place] or transplanted heart ASCVD (arteriosclerotic cardiovascular disease) POCT GLUCOSE Routine 08/11/2023 12:45 PM EST Cath [facility] Left Heart Cath & Arts W/Inj & Angio Img S&I ([id number]) 08/11/2023 12:08 PM EST Screening for cardiovascular condition Coronary artery disease, unspecified vessel or lesion type, unspecified whether angina present, unspecified whether [place] or transplanted heart ASCVD (arteriosclerotic cardiovascular disease) EKG 12-LEAD Routine 08/11/2023 11:16 AM EST Screening for cardiovascular condition Coronary artery disease, unspecified vessel or lesion type, unspecified whether angina present, unspecified whether [place] or transplanted heart ASCVD (arteriosclerotic cardiovascular disease) POCT GLUCOSE Routine 08/11/2023 10:59 AM EST HEMOGRAM Routine 08/11/2023 10:34 AM EST Screening for cardiovascular condition Coronary artery disease, unspecified vessel or lesion type, unspecified whether angina present, unspecified whether [place] or transplanted heart ASCVD (arteriosclerotic cardiovascular disease) DIFFERENTIAL, AUTOMATED Routine 08/11/2023 10:34 AM EST Screening for cardiovascular condition Coronary artery disease, unspecified vessel or lesion type, unspecified whether angina present, unspecified whether [place] or transplanted heart ASCVD (arteriosclerotic cardiovascular disease) CBC (WITH DIFF) Routine 08/11/2023 10:34 AM EST Screening for cardiovascular condition Coronary artery disease, unspecified vessel or lesion type, unspecified whether angina present, unspecified whether [place] or transplanted heart ASCVD (arteriosclerotic cardiovascular disease) BASIC METABOLIC PANEL Routine 08/11/2023 10:34 AM EST Screening for cardiovascular condition Coronary artery disease, unspecified vessel or lesion type, unspecified whether angina present, unspecified whether [place] or transplanted heart ASCVD (arteriosclerotic cardiovascular disease) documented in this encounter Results * XR Chest One View (08/12/2023 9:34 AM EST) Anatomical Region Laterality Modality Chest N/A Digital Radiogra phy Impressions 08/12/2023 5:44 PM EST No acute pathology identified on single frontal view of the chest. Thank you for letting us participate in the care of this patient. ??If you are a health care provider and have any questions regarding this report, please contact the number below. ??For patients who have questions please contact the health emergency care attendant that requested your imaging first. ? Electronically signed by: Sallie Dick MD, [facility] ([phone]), at 08/12/2023 5:44 PM Narrative 08/12/2023 5:44 PM EST EXAMINATION: XR CHEST ONE VIEW CLINICAL HISTORY: fevers, WBC TECHNIQUE: 1 view of the chest COMPARISON: 07/19/2017 FINDINGS: Lungs are clear. No pleural effusion. Normal size of the heart and normal width of the mediastinum. Sequela of remote rib fractures. Procedure Note Sallie Mejía MD - 08/12/2023 EXAMINATION: XR CHEST ONE VIEW CLINICAL HISTORY: fevers, WBC TECHNIQUE: 1 view of the chest COMPARISON: 07/19/2017 FINDINGS: Lungs are clear. No pleural effusion. Normal size of the heart and normalwidth of the mediastinum. Sequela of remote rib fractures. IMPRESSION No acute pathology identified on single frontal view of the chest. Thank you for letting us participate in the care of this patient. If youare a health care provider and have any questions regarding this report,please contact the number below. For patients who have questions please contactthe health emergency care attendant that requested your imaging first. Electronically signed by: Sallie Dick MD, [facility] ([phone]), at 08/12/2023 5:44 PM Jamal Vital MD IMG DX ORDERABLES * (ABNORMAL) Urinalysis Microscopic Exam (08/12/2023 8:00 AM EST) Pathologist [facility] RBC, Urine 1 0 - 4 /HPF [facility] WBC, Urine 7(H) 0 - 5 /HPF [facility] Bacteria, Urine Occasional (A) None /HPF [facility] Squamous Epithelial Cells Raw Data, Urine 5(H) <=4 /HPF [facility] Hyaline Casts, Urine 12(H) 0 - 2 /LPF [facility] Urine 08/12/2023 8:00 AM EST 08/12/2023 8:07 AM EST Narrative Resulting Agency Comment Spec In Lab Manuelito Arizmendi MD URINE ORDERABLES [facility] [place] [address] * (ABNORMAL) Urinalysis with reflex Culture (08/12/2023 8:00 AM EST) Glucose, Urine Dipstick Negative Negative mg/dL [facility] Protein, Urine Dipstick Trace(A) Negative mg/dL [facility] Bilirubin, Urine Dipstick Negative Negative mg/dL [facility] Comment: Clinical correlation required for positive Urine Bilirubin results as false positive may occur with some drugs and drug related products. If a false positive is suspected a serum total bilirubin should be considered if clinically indicated. Urobilinogen, Urine Dipstick Normal Normal mg/dL [facility] pH, Urn (dipstick) 5.0 5.0 - 8.0 [facility] Blood, Urine Dipstick Trace(A) Negative mg/dL [facility] Ketone, Urine Dipstick Trace(A) Negative mg/dL [facility] Nitrite, Urine Dipstick Negative Negative [facility] Leukocytes, Urine Dipstick Trace(A) Negative mcL [facility] Appearance, Urine Dipstick Cloudy(A) Clear [facility] Specific [place] Urine Automated >=1.030(A) 1.005 - 1.030 [facility] Color, Urine Dipstick Dark Yellow Yellow [facility] Reflex to Culture No [facility] Urine 08/12/2023 8:00 AM EST 08/12/2023 8:07 AM EST Narrative Resulting Agency Comment Spec In Lab Jamal Vital MD URINE ORDERABLES Performing Organization Address [facility] Co de Phone Number [facility] [place] [address] * (ABNORMAL) POCT Glucose (08/12/2023 6:56 AM EST) Glucose, POC 255(H) 65 - 199 mg/dL [facility] Comment: Supplemental ranges: <140 mg/dL before meals <180 mg/dL all other times of the day Blood 08/12/2023 6:56 AM EST 08/12/2023 6:56 AM EST Jamal Vital MD POINT OF CARE TEST O RDERABLES Performing Organization Address City/[facility]/ZIP Co de Phone Number [facility] [place] [address] * (ABNORMAL) Differential, Automated (08/12/2023 12:35 AM EST) Neutrophil % 93.1 % [facility] Neutrophil Absolute 14.62(H) 1.70 - 6.10 x10(3)/ L [facility] Lymph % 4.1 % [facility] Lymphocytes Abs 0.6(L) 0.9 - 3.2 x10(3)/ L [facility] Monocyte % 2.1 % [facility] Monocyte Abs 0.3 0.3 - 0.9 x10(3)/ L [facility] Eos % 0.0 % [facility] Eosinophils Abs 0.0 0.0 - 0.4 x10(3)/[facility] Basophil % 0.3 % [facility] Baso Absolute 0.0 0.0 - 0.1 x10(3)/[facility] Immature Gran % 0.40 % [facility] Comment: Immature granulocytes(IG's)percentage and absolute count will include metamyelocytes, myelocytes, and promyelocytes. Blood smears from CBCs yielding IG's will be scanned manually for concordance. If this scan disagrees with the automated IG or if promyelocytes are noted, a manual differential will be performed. Immature Gran Absolute 0.07(H) 0.00 - 0.04 x10(3)/ L [facility] Blood 08/12/2023 12:3 5 AM EST 08/12/2023 12:53 AM EST Narrative Resulting Agency Comment Spec In Lab Manuelito Arizmendi MD HEMATOLOGY ORDERABLE S [facility] [place] [address] * (ABNORMAL) Hemogram (08/12/2023 12:35 AM EST) White Blood Cell 15.7(H) 4.0 - 9.5 x10(3)/ L [facility] Red Blood Cell 4.07 4.00 - 5.21 x10(6)/[facility] Hemoglobin 13.0 11.7 - 15.5 g/dL [facility] Hematocrit 36.2 35.7 - 45.8 % [facility] Mean Cell Volume 88.9 82.6 - 94.4 fL [facility] Mean Cell Hemoglobin 31.9 27.1 - 32.0 pg [facility] Mean Cell Hemoglobin Concentration 35.9(H) 31.7 - 35.0 g/dL [facility] Platelet 115(L) 145 - 357 x10(3)/mc L [facility] RDW Standard Deviation 41.2 37.0 - 46.0 fL [facility] RDW coefficient of variation 12.6 11.5 - 14.1 % [facility] Mean Platelet Volume 9.7 7.6 - 12.9 fL [facility] NRBC% auto 0.0 % [facility] NRBC Absolute 0.000 0.000 - 0.000 x10(3)/mc L [facility] Blood 08/12/2023 12:3 5 AM EST 08/12/2023 12:53 AM EST Narrative Resulting Agency Comment Spec In Lab Manuelito Arizmendi MD HEMATOLOGY ORDERABLE S Performing Organization Address City/[facility] Co de Phone Number [facility] [place] [address] * TSH [place] (08/12/2023 12:35 AM EST) Thyroid Stimulating Hormone 1.41 0.27 - 4.20 mcIU/mL [facility] Comment: Reference Interval (mcIU/mL): Females: ??First Trimester: 0.23-3.88 ??Second Trimester: 0.22-3.90 ??Third Trimester: 0.44-4.66 Blood 08/12/2023 12:3 5 AM EST 08/12/2023 12:53 AM EST Narrative Resulting Agency Comment Spec In Lab Jamal Vital MD CHEMISTRY ORDERABLES Performing Organization Address City/[facility]/ZIP Co de Phone Number [facility] [place] [address] * (ABNORMAL) Basic Metabolic Panel (non-fasting) (08/12/2023 12:35 AM EST) Glucose 265(H) 65 - 199 mg/dL [facility] Comment:Diabetes: >=200 mg/d L plus symptoms Blood Urea Nitrogen 17 8 - 18 mg/dL [facility] Creatinine 0.91 0.70 - 1.20 mg/dL [facility] Sodium 137 135 - 145 mmol/L [facility] Potassium 3.3(L) 3.5 - 5.0 mmol/L [facility] Comment: Please note: ??Patients with WBC >100,000 may have falsely elevated Potassium levels. ??For accurate Potassium quantification in these patients send serum separator tube (gold top) for subsequent determinations. ??Contact the Clinical Chemistry Laboratory if there are any questions. Chloride 103 98 - 107 mmol/L [facility] Carbon Dioxide 20(L) 22 - 31 mmol/L [facility] Anion Gap 14 5 - 15 mmol/L [facility] Calcium 8.7 8.5 - 10.5 mg/dL [facility] Est Glomerular Filtration Rate 65 >=60 mL/min/1. 73 m?? [facility] Comment: This patient's estimated GFR was calculated using the 2020 CKD-EPI equation. The estimated GFR can vary from the measured GFR by up to 30% in the absence of rapidly changing kidney function. Assessment of the estimated GFR is not appropriate when creatinine concentrations are rapidly changing. For clinical situations in which a more precise estimate of GFR is necessary, consider alternative methods of GFR estimation such as a 24-hour urine creatinine clearance. Assignment of CKD stage 1-5 for patients with an eGFR near the transition point between stages may be based on clinical assessment of muscle mass and symptoms in addition to eGFR. Blood 08/12/2023 12:3 5 AM EST 08/12/2023 12:53 AM EST Narrative Resulting Agency Comment Spec In Lab Jamal Vital MD CHEMISTRY ORDERABLES [facility] [place] [address] * POCT Glucose (08/11/2023 9:16 PM EST) Glucose, POC 155 65 - 199 mg/dL [facility] Comment: Supplemental ranges: <140 mg/dL before meals <180 mg/dL all other times of the day Blood 08/11/2023 9:16 PM EST 08/11/2023 9:16 PM EST Jamal Vital MD POINT OF CARE TEST O RDERABLES Performing Organization Address City/[facility] [place] [address] * EKG 12 Lead (08/11/2023 3:10 PM EST) Ventricular rate 79 BPM MUSE SYSTEM Atrial Rate 79 BPM MUSE SYSTEM P-R Interval 216 ms MUSE SYSTEM QRS Duration 78 ms MUSE SYSTEM Q-T Interval 382 ms MUSE SYSTEM QTC Calculated (Bezet) 438 ms MUSE SYSTEM Calculated P [place] 47 degrees MUSE SYSTEM Calculated R [place] -31 degrees MUSE SYSTEM Calculated T [place] 18 degrees MUSE SYSTEM INTERPRETATION Sinus rhythm with 1st degree A-V block Left axis deviation Abnormal ECG When compared with ECG of 11-AUG-2023 13:28, Nonspecific T wave abnormality, improved in Anterior leads Confirmed by Naldo Anthony MDshman ([id number]) on 08/12/2023 7:16:33 PM MUSE SYSTEM 08/11/2023 3:10 PM EST 08/12/2023 7:16 PM EST Jamal Vital MD ECG ORDERABLES Performing Organization Address [facility] Co de Phone Number MUSE SYSTEM * EKG 12 Lead (08/11/2023 1:28 PM EST) Ventricular rate 70 BPM MUSE SYSTEM Atrial Rate 70 BPM MUSE SYSTEM P-R Interval 202 ms MUSE SYSTEM QRS Duration 80 ms MUSE SYSTEM Q-T Interval 386 ms MUSE SYSTEM QTC Calculated (Bezet) 416 ms MUSE SYSTEM Calculated P [place] 30 degrees MUSE SYSTEM Calculated R [place] -26 degrees MUSE SYSTEM Calculated T [place] 3 degrees MUSE SYSTEM INTERPRETATION Normal sinus rhythm Nonspecific T wave abnormality Abnormal ECG When compared with ECG of 11-AUG-2023 11:16, No significant change was found Confirmed by MD Haney Danette ([id number]) on 08/11/2023 9:02:57 PM MUSE SYSTEM 08/11/2023 1:28 PM EST 08/11/2023 9:02 PM EST Jamal Vital MD ECG ORDERABLES MUSE SYSTEM * CARDIAC CATHETERIZATION (08/11/2023 1:12 PM EST) Anatomical Region Laterality Modality Other Narrative 08/12/2023 2:27 PM EST ?[facility] ? Cardiac Catheterization/Intervention Report ? Patient Name: Kevin Mosuzy Smith. ? Procedure Date: 08/11/2023 ? A #: [id number] ? Primary Physician: Jamal Vital ? Case #: [id number] ? File Name: [id number] ? Catheterization Order Number: [id number] ? [facility] ?[facility] ? Final Report [place], [place] ? Patient Name: ? Lou Mo ? ID#: ?[id number] ? : ?1945 ? Procedure Date: ? August 11, 2023 ?Case #: ? [id number] ? Room: ? 2 ? Case Physician: ? Jamal Vital, M.D. ?Start: ?12:24 ?Fellow: ? Manuelito Arizmendi M.D. ?Admission: ??08/11/2023 ? Discharge: ??08/12/2023 ? Procedures: ?* Coronary Angiography ?* Left Heart Catheterization ?* Coronary Stent Insertion ? History ?Lou Mo is a 78 year old woman. She has hypertension and a ?family history of coronary artery disease. The patient's smoking status ?is Never. She has hypercholesterolemia managed with lipid therapy. The ?patient has diabetes managed with oral medication. She has a prior ?history of coronary artery disease. The patient had a remote coronary ?intervention procedure. Prior to the initiation of this procedure, the ?patient was designated as ASA Class II. The CSHA clinical frailty scale ?is 5: Mildly Frail. ? Diagnostic Tests: ?Prior Coronary Angiography: ? Prior coronary angiography was performed on 07/16/2018 and showed ? non-obstructive CAD. ?Electrocardiography: ? EKG was assessed by ECG. EKG was Abnormal. EKG showed T-wave ? inversions and other abnormality. ?Stress or Imaging Studies: ? An echo stress test was performed on 04/29/2023 and was Negative. A ? stress test with SPECT imaging was performed on 05/14/2023 and was ? Negative. ?Medications Prior to Procedure: ? Aspirin, Beta Connor and Statin. ? Indications for Diagnostic Cath: ?The priority of the diagnostic procedure was Elective. The indication for ?the pathology laboratory technologist visit is worsening angina. Chest pain symptom assessment ?was: Atypical Angina. ? Technique: ?A 6 SLFr sheath was inserted in the right radial artery utilizing the ?Seldinger technique. The left coronary artery was injected utilizing a ?5Fr JIMMY RADIAL catheter. A 5Fr MULTIPURPOSE A-2 catheter was used to ?inject the right coronary artery. Left ventricular pressure was performed ?utilizing a 5Fr JIMMY RADIAL catheter. Coronary stent insertion was ?performed and the equipment utilized will be described in the ?intervention summary section. 7,500 units of heparin were administered. A ?total of 100cc of Omnipaque were opened, 60cc of Omnipaque were ?administered and 40cc of Omnipaque were wasted. Radiation: Fluoro time ?was 11.5 minutes, dose area product was 38.70 Gy/cm2 and air kerma was ?535 mGY. See the case log for additional details. ?The patient received the following medications prior to and during the ?procedure: ? Unfractionated Heparin and Clopidogrel. ? Hemodynamics: ?Left Heart Pressures ? Resting: ? Syst Diast ? EDP ?a ?v ? m ?Ao 118 ?? 57 ?87 ?LV 117 ? 5 ? Coronary Angiography: ?Dominance: Right ?Left Main ? There was mild diffuse (<=25% stenosis) disease of the entire vessel ? segment of the left main artery. ??The left main was large. ?Left Anterior Descending ? There was mild diffuse (<=25% stenosis) disease of the entire vessel ? segment of the left anterior descending artery (LAD). ??The LAD was ? large. ??The proximal segment of the LAD had a long segmental 90% ? stenosis. ??There also was a 70% single discrete stenosis of the ? distal segment of the LAD. ? There was a 30% single discrete stenosis of the proximal segment of ? the first diagonal branch (Diagonal 1) of the LAD. ??The Diagonal 1 ? was moderate in size. ?Left Circumflex ? There was mild diffuse (<=25% stenosis) disease of the entire vessel ? segment of the left circumflex artery (LCX). ??The LCX was large. ?Right Coronary Artery ? There was mild diffuse (<=25% stenosis) disease of the entire vessel ? segment of the right coronary artery (RCA). ??The RCA was large. ? Indication for Intervention: ?Coronary intervention was indicated for treatment of stable angina. The ?priority for the procedure was Elective. The NCDR indication for the ?procedure was Stable angina. LVEF within one week was 65%. Syntax Score ?was Low. ? Intervention Summary: ?Left Anterior Descending Artery ? Proximal 90% ? Stent insertion was performed on the 90% stenosis in the ? proximal segment of the LAD. This was a drug eluting in- stent ? restenosis lesion. According to the ACC/AHA classification ? system, this lesion was a type B2 moderate risk lesion. ? Management of recurrent restenosis was the indication for ? stent insertion. A guidewire was placed across this lesion. ? Vessel flow pre intervention was YAHAIRA 3. Lesion length was ? 15mm. This was a previously treated lesion on 05/28/2016. ? Stent insertion was accomplished through a 6 Fr. EBU 3.5 ? guide. ??The lesion was predilated with a 2.50mm EUPHORA 15 MM ? balloon with a maximum inflation pressure of 18 atmospheres. ? A premounted 3.00 x 22 mm Sergey Mathews (NIESHA) was deployed ? with a maximum inflation pressure of 20 atmospheres. ? Following stent deployment, the lesion was dilated using a ? 3.25mm NC EUPHORA 15 MM balloon with a maximum inflation ? pressure of 27 atmospheres. ? The final outcome was defined as successful. There was no ? residual stenosis following this intervention. The final YAHAIRA ? flow was 3. ? Distal 70% ? Stent insertion was performed on the 70% stenosis in the ? distal segment of the LAD. This was a drug eluting in- stent ? restenosis lesion. This lesion was designated a type B2 ? moderate risk lesion based on ACC/AHA classification system. ? Management of recurrent restenosis was the indication for ? stent insertion. A guidewire was placed across this lesion. ? Vessel flow pre intervention was YAHAIRA 3. Lesion length was ? 10mm. This was a previously treated lesion on 05/28/2016. ? Stent insertion was accomplished through a 6 Fr. EBU 3.5 ? guide. ??A premounted 2.00 x 12 mm Sergey Mathews (NIESHA) was ? deployed with a maximum inflation pressure of 25 atmospheres. ? Another stent insertion was accomplished through a 6 Fr. EBU ? 3.5 guide. ??A premounted 2.00 x 08 mm Sergey Mathews (NIESHA) was ? deployed with a maximum inflation pressure of 15 atmospheres. ? The final outcome was defined as successful. A coronary ? arteriolar vasodilator was administered as part of the ? intervention on this lesion. There was no residual stenosis ? following this intervention. The final YAHAIRA flow was 3. ? Vascular Access: ?Vascular Access Management: ? Mechanical Compression of the right radial artery access site was ? performed. ? Dual Antiplatelet (DAPT) Recommendations: ?Drug eluting stent (NIESHA) inserted for stable ischemic heart disease ?(SIHD). ?P2Y12 Loading dose Clopidogrel 600 mg PO given in lab. ?Recommended anti-platelet/anti-thrombotic regimen: ?Continue aspirin 81 mg daily for indefinitely. ?Continue clopidogrel 75 mg daily for indefinitely. ?These recommendations are made at the time of the intervention. Patient ?and provider preferences or a changing clinical situation may require ?modification of this regimen. Consult [facility] Interventional Cardiology for ?questions. ? Conclusions: ?* One vessel coronary artery disease (LAD) ?* Successful stent insertion of the proximal LAD lesion ?* Successful stent insertion of the distal LAD lesion ?* See Dual Antiplatelet (DAPT) Recommendations above ? Complications/Events: ?The patient had no complications during these procedures. ? Post Procedure Fluid Recommendations: ?IV fluid at 329 mL/hr for 4 hours for a total of 1,316 mL. These ?recommendations are made at the time of the procedure. Patient and ?provider preferences or a changing clinical situation may require ?modification of this regimen. ?The attending physician was present for the entire procedure. ?Dr. Jamal Vital M.D. was present during the moderate sedation ?intraservice time as documented by the sedation nurse. ??Case time = 00:43. ?Dr. Jamal Vital M.D. performed the coronary angiography, left heart ?catheterization and stent insertion-coronary. ? Jamal Vital M.D. ? Electronically Signed by: Jamal Vital M.D. ? Report Finalized: 08/12/2023 ??14:21 ? Report Last Ammended: 09/09/2023 ??12:07 ? Procedure Note Jamal Vital MD - 09/10/2023 [facility] Cardiac Catheterization/Intervention Report Patient Name: Chepe Lou C. Procedure Date: 08/11/2023 A #: [id number] Primary Physician: Jamal Vital Case #: [id number] File Name: [id number] Catheterization Order Number: [id number] [facility] FinalReport [place], [place] Patient Name: Lou Bonilla Chepe ID#:[id number] :1945 Procedure Date: August 11, 2023 Case #: [id number] Room: 2 Case Physician: Jamal Vital M.D. Start: 12:24 Fellow: Manuelito Arizmendi M.D. Admission:08/11/2023 Discharge:08/12/2023 Procedures: * Coronary Angiography * Left Heart Catheterization * Coronary Stent Insertion History Lou Mo is a 78 year old woman. She has hypertension soraya family history of coronary artery disease. The patient's smokingstatus is Never. She has hypercholesterolemia managed with lipid therapy.The patient has diabetes managed with oral medication. She has a prior history of coronary artery disease. The patient had a remotecoronary intervention procedure. Prior to the initiation of this procedure,the patient was designated as ASA Class II. The [facility] clinical frailtyscale is 5: Mildly Frail. Diagnostic Tests: Prior Coronary Angiography: Prior coronary angiography was performed on 07/16/2018 andshowed non-obstructive CAD. Electrocardiography: EKG was assessed by ECG. EKG was Abnormal. EKG showed T-wave inversions and other abnormality. Stress or Imaging Studies: An echo stress test was performed on 04/29/2023 and wasNegative. A stress test with SPECT imaging was performed on 05/14/2023 andwas Negative. Medications Prior to Procedure: Aspirin, Beta Connor and Statin. Indications for Diagnostic Cath: The priority of the diagnostic procedure was Elective. Theindication for the pathology laboratory technologist visit is worsening angina. Chest pain symptomassessment was: Atypical Angina. Technique: A 6 SLFr sheath was inserted in the right radial artery utilizingthe Seldinger technique. The left coronary artery was injected utilizinga 5Fr JIMMY RADIAL catheter. A 5Fr MULTIPURPOSE A-2 catheter was usedto inject the right coronary artery. Left ventricular pressure wasperformed utilizing a 5Fr JIMMY RADIAL catheter. Coronary stent insertion was performed and the equipment utilized will be described in the intervention summary section. 7,500 units of heparin wereadministered. A total of 100cc of Omnipaque were opened, 60cc of Omnipaque were administered and 40cc of Omnipaque were wasted. Radiation: Fluorotime was 11.5 minutes, dose area product was 38.70 Gy/cm2 and air kermawas 535 mGY. See the case log for additional details. The patient received the following medications prior to and duringthe procedure: Unfractionated Heparin and Clopidogrel. Hemodynamics: Left Heart Pressures Resting: Syst Diast EDP a v m Ao 118 57 87 LV 117 5 Coronary Angiography: Dominance: Right Left Main There was mild diffuse (<=25% stenosis) disease of the entirevessel segment of the left main artery. The left main was large. Left Anterior Descending There was mild diffuse (<=25% stenosis) disease of the entirevessel segment of the left anterior descending artery (LAD). The LADwas large. The proximal segment of the LAD had a long [id number]% stenosis. There also was a 70% single discrete stenosis of the distal segment of the LAD. There was a 30% single discrete stenosis of the proximalsegment of the first diagonal branch (Diagonal 1) of the LAD. TheDiagonal 1 was moderate in size. Left Circumflex There was mild diffuse (<=25% stenosis) disease of the entirevessel segment of the left circumflex artery (LCX). The LCX waslarge. Right Coronary Artery There was mild diffuse (<=25% stenosis) disease of the entirevessel segment of the right coronary artery (RCA). The RCA was large. Indication for Intervention: Coronary intervention was indicated for treatment of stable angina.The priority for the procedure was Elective. The NCDR indication for the procedure was Stable angina. LVEF within one week was 65%. SyntaxScore was Low. Intervention Summary: Left Anterior Descending Artery Proximal 90% Stent insertion was performed on the 90% stenosis in the proximal segment of the LAD. This was a drug elutingin-stent restenosis lesion. According to the ACC/AHAclassification system, this lesion was a type B2 moderate risk lesion. Management of recurrent restenosis was the indication for stent insertion. A guidewire was placed across thislesion. Vessel flow pre intervention was YAHAIRA 3. Lesion lengthwas 15mm. This was a previously treated lesion on 05/28/2016. Stent insertion was accomplished through a 6 Fr. EBU 3.5 guide. The lesion was predilated with a 2.50mm [id number] MM balloon with a maximum inflation pressure of 18atmospheres. A premounted 3.00 x 22 mm [place] Mathews (NIESHA) wasdeployed with a maximum inflation pressure of 20 atmospheres. Following stent deployment, the lesion was dilated usinga 3.25mm NC EUPHORA 15 MM balloon with a maximum inflation pressure of 27 atmospheres. The final outcome was defined as successful. There was no residual stenosis following this intervention. The finalTIMI flow was 3. Distal 70% Stent insertion was performed on the 70% stenosis in the distal segment of the LAD. This was a drug elutingin-stent restenosis lesion. This lesion was designated a type B2 moderate risk lesion based on ACC/AHA classificationsystem. Management of recurrent restenosis was the indication for stent insertion. A guidewire was placed across thislesion. Vessel flow pre intervention was YAHAIRA 3. Lesion lengthwas 10mm. This was a previously treated lesion on 05/28/2016. Stent insertion was accomplished through a 6 Fr. EBU 3.5 guide. A premounted 2.00 x 12 mm [place] Mathews (NIESHA) was deployed with a maximum inflation pressure of 25atmospheres. Another stent insertion was accomplished through a 6 Fr.EBU 3.5 guide. A premounted 2.00 x 08 mm Sergey Mathews (NIESHA)was deployed with a maximum inflation pressure of 15atmospheres. The final outcome was defined as successful. A coronary arteriolar vasodilator was administered as part of the intervention on this lesion. There was no residualstenosis following this intervention. The final YAHAIRA flow was 3. Vascular Access: Vascular Access Management: Mechanical Compression of the right radial artery access sitewas performed. Dual Antiplatelet (DAPT) Recommendations: Drug eluting stent (NIESHA) inserted for stable ischemic heart disease (SIHD). P2Y12 Loading dose Clopidogrel 600 mg PO given in lab. Recommended anti-platelet/anti-thrombotic regimen: Continue aspirin 81 mg daily for indefinitely. Continue clopidogrel 75 mg daily for indefinitely. These recommendations are made at the time of the intervention.Patient and provider preferences or a changing clinical situation mayrequire modification of this regimen. Consult [facility] Interventional Cardiologyfor questions. Conclusions: * One vessel coronary artery disease (LAD) * Successful stent insertion of the proximal LAD lesion * Successful stent insertion of the distal LAD lesion * See Dual Antiplatelet (DAPT) Recommendations above Complications/Events: The patient had no complications during these procedures. Post Procedure Fluid Recommendations: IV fluid at 329 mL/hr for 4 hours for a total of 1,316 mL. These recommendations are made at the time of the procedure. Patient and provider preferences or a changing clinical situation may require modification of this regimen. The attending physician was present for the entire procedure. Dr. Jamal Vital M.D. was present during the moderate sedation intraservice time as documented by the sedation nurse. Case time =00:43. Dr. Jamal Vital M.D. performed the coronary angiography, leftheart catheterization and stent insertion-coronary. Jamal Vital M.D. Electronically Signed by: Jamal Vital M.D. Report Finalized: 08/12/2023 14:21 Report Last Ammended: 09/09/2023 12:07 Jamal Vital MD CARDIAC CATH ORDERAB LES * POCT Glucose (08/11/2023 12:45 PM EST) Pathologist [facility] Glucose, POC 133 65 - 199 mg/dL [facility] Comment: Supplemental ranges: <140 mg/dL before meals <180 mg/dL all other times of the day Blood 08/11/2023 12:4 5 PM EST 08/11/2023 12:45 PM EST Jamal Vital MD POINT OF CARE TEST O RDERABLES [facility] [place] [address] * EKG 12 Lead (08/11/2023 11:16 AM EST) Ventricular rate 80 BPM MUSE SYSTEM Atrial Rate 80 BPM MUSE SYSTEM P-R Interval 206 ms MUSE SYSTEM QRS Duration 70 ms MUSE SYSTEM Q-T Interval 356 ms MUSE SYSTEM QTC Calculated (Bezet) 410 ms MUSE SYSTEM Calculated P [place] 13 degrees MUSE SYSTEM Calculated R [place] -23 degrees MUSE SYSTEM Calculated T [place] 20 degrees MUSE SYSTEM INTERPRETATION Normal sinus rhythm Normal ECG When compared with ECG of 24-SEP-2020 09:30, No significant change was found I personally reviewed the tracing and edited the fellows interpretation Confirmed by fellow MD Marina, Marci ([id number]) on 08/12/2023 7:33:02 AM Confirmed by Gabrielle DIAZ, Catrachito ([id number]) on 08/12/2023 6:36:00 PM MUSE SYSTEM 08/11/2023 11:1 6 AM EST 08/12/2023 6:36 PM EST Jamal Vital MD ECG ORDERABLES MUSE SYSTEM * POCT Glucose (08/11/2023 10:59 AM EST) Glucose, POC 167 65 - 199 mg/dL [facility] Comment: Supplemental ranges: <140 mg/dL before meals <180 mg/dL all other times of the day Blood 08/11/2023 10:5 9 AM EST 08/11/2023 10:59 AM EST Jamal Vital MD POINT OF CARE TEST O RDERABLES Performing Organization Address City/[facility]/ZIP Co de Phone Number [facility] [place] [address] * Differential, Automated (08/11/2023 10:34 AM EST) [facility] Neutrophil % 65.7 % [facility] Neutrophil Absolute 4.83 1.70 - 6.10 x10(3)/[facility] Lymph % 25.4 % [facility] Lymphocytes Abs 1.9 0.9 - 3.2 x10(3)/[facility] Monocyte % 6.3 % [facility] Monocyte Abs 0.5 0.3 - 0.9 x10(3)/[facility] Eos % 1.5 % [facility] Eosinophils Abs 0.1 0.0 - 0.4 x10(3)/[facility] Basophil % 0.7 % [facility] Baso Absolute 0.0 0.0 - 0.1 x10(3)/[facility] Immature Gran % 0.40 % [facility] Comment: Immature granulocytes(IG's)percentage and absolute count will include metamyelocytes, myelocytes, and promyelocytes. Blood smears from CBCs yielding IG's will be scanned manually for concordance. If this scan disagrees with the automated IG or if promyelocytes are noted, a manual differential will be performed. Immature Gran Absolute 0.03 0.00 - 0.04 x10(3)/[facility] Blood 08/11/2023 10:3 4 AM EST 08/11/2023 10:48 AM EST Narrative Resulting Agency Comment Spec In Lab Shekhar BRIONES HEMATOLOGY ORDERABLE S [facility] [place] [place] [address] * Hemogram (08/11/2023 10:34 AM EST) White Blood Cell 7.4 4.0 - 9.5 x10(3)/[facility] Red Blood Cell 4.42 4.00 - 5.21 x10(6)/[facility] Hemoglobin 13.8 11.7 - 15.5 g/dL [facility] Hematocrit 40.0 35.7 - 45.8 % [facility] Mean Cell Volume 90.5 82.6 - 94.4 fL [facility] Mean Cell Hemoglobin 31.2 27.1 - 32.0 pg [facility] Mean Cell Hemoglobin Concentration 34.5 31.7 - 35.0 g/dL [facility] Platelet 156 145 - 357 x10(3)/[facility] RDW Standard Deviation 41.9 37.0 - 46.0 fL [facility] RDW coefficient of variation 12.6 11.5 - 14.1 % [facility] Mean Platelet Volume 9.7 7.6 - 12.9 fL [facility] NRBC% auto 0.0 % [facility] NRBC Absolute 0.000 0.000 - 0.000 x10(3)/[facility] Blood 08/11/2023 10:3 4 AM EST 08/11/2023 10:48 AM EST Narrative Resulting Agency Comment Spec In Lab Shekhar BRIONES HEMATOLOGY ORDERABLE S [facility] [place] [place] [address] * Basic Metabolic Panel (non-fasting) (08/11/2023 10:34 AM EST) Glucose 186 65 - 199 mg/dL [facility] Comment:Diabetes: >=200 mg/d L plus symptoms Blood Urea Nitrogen 13 8 - 18 mg/dL [facility] Creatinine 0.88 0.70 - 1.20 mg/dL [facility] Sodium 143 135 - 145 mmol/L [facility] Potassium 3.8 3.5 - 5.0 mmol/L [facility] Comment: Please note: ??Patients with WBC >100,000 may have falsely elevated Potassium levels. ??For accurate Potassium quantification in these patients send serum separator tube (gold top) for subsequent determinations. ??Contact the Clinical Chemistry Laboratory if there are any questions. Chloride 106 98 - 107 mmol/L [facility] Carbon Dioxide 27 22 - 31 mmol/L [facility] Anion Gap 10 5 - 15 mmol/L [facility] Calcium 9.4 8.5 - 10.5 mg/dL [facility] Est Glomerular Filtration Rate 67 >=60 mL/min/1. 73 m?? [facility] Comment: This patient's estimated GFR was calculated using the 2020 CKD-EPI equation. The estimated GFR can vary from the measured GFR by up to 30% in the absence of rapidly changing kidney function. Assessment of the estimated GFR is not appropriate when creatinine concentrations are rapidly changing. For clinical situations in which a more precise estimate of GFR is necessary, consider alternative methods of GFR estimation such as a 24-hour urine creatinine clearance. Assignment of CKD stage 1-5 for patients with an eGFR near the transition point between stages may be based on clinical assessment of muscle mass and symptoms in addition to eGFR. Blood 08/11/2023 10:3 4 AM EST 08/11/2023 10:48 AM EST Narrative Resulting Agency Comment Spec In Lab Jamal Vital MD CHEMISTRY ORDERABLES [facility] [address] [place] [address] documented in this encounter Visit Diagnoses Diagnosis Screening for cardiovascular condition Screening for other and unspecified cardiovascular conditions Coronary artery disease, unspecified vessel or lesion type, unspecified whether angina present, unspecified whether [place] or transplanted heart ASCVD (arteriosclerotic cardiovascular disease) Unspecified cardiovascular disease Screening for cardiovascular condition Screening for other and unspecified cardiovascular conditions Coronary artery disease, unspecified vessel or lesion type, unspecified whether angina present, unspecified whether [place] or transplanted heart ASCVD (arteriosclerotic cardiovascular disease) Unspecified cardiovascular disease documented in this encounter Admitting Diagnoses Diagnosis CAD (coronary artery disease) Coronary atherosclerosis of unspecified type of vessel, [place] or graft documented in this encounter Administered Medications Inactive Administered Medications - up to 3 most recent administrations Medication Order MAR Action Action Date Dose Rate Site aspirin EC tablet 81 mg 81 mg, Oral, DAILY, First dose on Thu08/12/23 at 0900, Until Discontinued, Routine Given 08/12/2023 8:28 AM EST 81 mg citalopram (CeleXA) tablet 20 mg 20 mg, Oral, DAILY, First dose on Thu08/12/23 at 0900, Until Discontinued, Routine Given 08/12/2023 8:28 AM EST 20 mg clopidogreL (Plavix) tablet 75 mg 75 mg, Oral, DAILY, First dose on Thu08/12/23 at 0900, Until Discontinued, Routine Given 08/12/2023 8:28 AM EST 75 mg dextrose 10% infusion 250 mL, at 1,000 mL/hr, Intravenous, EVERY 15 MIN PRN, Starting on Thu08/11/23 at 1835, Until Thu08/12/23 at 1258, For BG 50-70 mg/dL: Oral treatment preferred: If able to drink, give 120 mL juice or regular (not diet) soda OR if NPO, give 15 gram glucose 40% oral gel massaged into buccal mucosa OR if unconscious or uncooperative, give 25 gram (250 mL) dextrose 10% IV over 15 minutes per protocol OR, if no IV access, 1 mg glucagon IM. For BG less than 50 mg/dL: Oral treatment preferred: If able to drink, give 240 mL juice or regular (not diet) soda OR if NPO, give 30 gram glucose 40% oral gel massaged in buccal mucosa OR if unconscious or uncooperative, give 25 gram (250 mL) dextrose 10% IV over 15 minutes per protocol OR, if no IV access, 1 mg glucagon IM. Recheck BG in 15 minutes. May repeat juice/soda, gel, dextrose or glucagon once per episode. Notify provider if hypoglycemia does not resolve after two treatments. Providers should consider the following: administering longer-acting treatments for the duration of active insulin or hypoglycemia agent for persistent hypoglycemia and re-evaluating active insulin orders before administering the next dose. glucagon (Glucagen) (1 mg/mL) injection solution 1 mg 1 mg, Intramuscular, EVERY 15 MIN PRN, Starting on Thu08/11/23 at 1835, Until Thu08/12/23 at 1258, Low blood sugar, For BG 50-70 mg/dL: Oral treatment preferred: If able to drink, give 120 mL juice or regular (not diet) soda OR if NPO, give 15 gram glucose 40% oral gel massaged into buccal mucosa OR if unconscious or uncooperative, give 25 gram (250 mL) dextrose 10% IV over 15 minutes per protocol OR, if no IV access, 1 mg glucagon IM. For BG less than 50 mg/dL: Oral treatment preferred: If able to drink, give 240 mL juice or regular (not diet) soda OR if NPO, give 30 gram glucose 40% oral gel massaged in buccal mucosa OR if unconscious or uncooperative, give 25 gram (250 mL) dextrose 10% IV over 15 minutes per protocol OR, if no IV access, 1 mg glucagon IM. Recheck BG in 15 minutes. May repeat juice/soda, gel, dextrose or glucagon once per episode. Notify provider if hypoglycemia does not resolve after two treatments. Providers should consider the following: administering longer-acting treatments for the duration of active insulin or hypoglycemia agent for persistent hypoglycemia and re-evaluating active insulin orders before administering the next dose. , Routine glucose (Glutose) 40% oral geL 15-30 g of glucose, Buccal, EVERY 15 MIN PRN, Starting on Thu08/11/23 at 1835, Until Thu08/12/23 at 1258, Low blood sugar, For BG 50-70 mg/dL: Oral treatment preferred: If able to drink, give 120 mL juice or regular (not diet) soda OR if NPO, give 15 gram glucose 40% oral gel massaged into buccal mucosa OR if unconscious or uncooperative, give 25 gram (250 mL) dextrose 10% IV over 15 minutes per protocol OR, if no IV access, 1 mg glucagon IM. For BG less than 50 mg/dL: Oral treatment preferred: If able to drink, give 240 mL juice or regular (not diet) soda OR if NPO, give 30 gram glucose 40% oral gel massaged in buccal mucosa OR if unconscious or uncooperative, give 25 gram (250 mL) dextrose 10% IV over 15 minutes per protocol OR, if no IV access, 1 mg glucagon IM. Recheck BG in 15 minutes. May repeat juice/soda, gel, dextrose or glucagon once per episode. Notify provider if hypoglycemia does not resolve after two treatments. Providers should consider the following: administering longer-acting treatments for the duration of active insulin or hypoglycemia agent for persistent hypoglycemia and re-evaluating active insulin orders before administering the next dose. 1 tube of Glutose-15 contains 15 grams of glucose (net weight of tube = 37.5 grams.), Routine insulin lispro (HumaLOG;Admelog) (100 unit/mL) subcutaneous injection vial 1-4 Units 1-4 Units, Subcutaneous, 4 TIMES DAILY BEFORE MEALS & NIGHTLY, First dose (after last modification) on Thu08/11/23 at 2100, Until Discontinued, CORRECTION BOLUS [1-4 Units] Sensitive Sliding Scale (BG in mg/dL): Correction factor 40 (1 unit of insulin is expected to drop the glucose 40 mg/dL) ?? BG 160 - 200 Give 1 unit BG 201 - 240 Give 2 units BG 241 - 280 Give 3 units and recheck BG in 2 hours. BG greater than 280, give 4 units and recheck BG in 2 hours. - If recheck BG is LESS than 280, give no insulin and resume schedule - If recheck BG is GREATER than or EQUAL to 280, give 4 units and repeat BG in 2 hours & call for new insulin orders. DO NOT hold if NPO, unless specifically told to do so. ?? Per Inpatient Subcutaneous Insulin Policy, recheck a BG of greater than 240 mg/dL in 2 hours., Routine Given 08/12/2023 7:00 AM EST 3 Units ondansetron (pf) (Zofran) (2 mg/mL) injection 4 mg 4 mg, Intravenous, EVERY 8 HOURS PRN, Starting on Thu08/12/23 at 0012, Until Thu08/12/23 at 1258, Nausea Given 08/12/2023 12:23 AM EST 4 mg sodium chloride 0.9% infusion 100 mL/hr, Intravenous, CONTINUOUS, Starting on Thu08/11/23 at 1345, Until Thu08/11/23 at 1644, Recovery (Recovery-Hospital Unit) New Bag 08/11/2023 1:33 PM EST 100 mL/hr 100 mL/hr documented in this encounter Active and Recently Administered Medications Times are shown in EST. Scheduled Medication Order 08/10/2023 08/11/2023 08/12/2023 aspirin EC tablet 81 mg 81 mg, Oral, DAILY, First dose on Thu08/12/23 at 0900, Until Discontinued, Routine 08 (Given - Provid er: Shelby Morfin RN) citalopram (CeleXA) tablet 20 mg 20 mg, Oral, DAILY, First dose on Thu08/12/23 at 0900, Until Discontinued, Routine 0828 (Given - Provid er: Shelby Morfin RN) clopidogreL (Plavix) tablet 75 mg 75 mg, Oral, DAILY, First dose on Thu08/12/23 at 0900, Until Discontinued, Routine 08 (Given - Provid er: Shelby Morfin RN) insulin lispro (HumaLOG;Admelog) (100 unit/mL) subcutaneous injection vial 1-4 Units(Linked Group 1) 1-4 Units, Subcutaneous, 4 TIMES DAILY BEFORE MEALS & NIGHTLY, First dose (after last modification) on Thu08/11/23 at 2100, Until Discontinued, CORRECTION BOLUS [1-4 Units] Sensitive Sliding Scale (BG in mg/dL): Correction factor 40 (1 unit of insulin is expected to drop the glucose 40 mg/dL) ?? BG 160 - 200 Give 1 unit BG 201 - 240 Give 2 units BG 241 - 280 Give 3 units and recheck BG in 2 hours. BG greater than 280, give 4 units and recheck BG in 2 hours. - If recheck BG is LESS than 280, give no insulin and resume schedule - If recheck BG is GREATER than or EQUAL to 280, give 4 units and repeat BG in 2 hours & call for new insulin orders. DO NOT hold if NPO, unless specifically told to do so. ?? Per Inpatient Subcutaneous Insulin Policy, recheck a BG of greater than 240 mg/dL in 2 hours., Routine 2100 (Not Given - Provider: Betzaida Vegas RN - Reason: Order parameters not met) 0700 (Given - Provider: Betzaida Vegas RN) Continuous Medication Order 08/10/2023 08/11/2023 08/12/2023 sodium chloride 0.9% infusion (CANCELED) 200 mL/hr, Intravenous, CONTINUOUS, Starting on Thu08/11/23 at 1130, Until Thu08/11/23 at 1610, Cath (Day of Procedure) 1130 (Due)1310 (New Bag - Provider: Shannan Garduno RN)1610 (Stopped - Provider: Sunita Bourgeois RN) sodium chloride 0.9% infusion () 100 mL/hr, Intravenous, CONTINUOUS, Starting on Thu08/11/23 at 1345, Until Thu08/11/23 at 1644, Recovery (Recovery-Hospital Unit) 1333 (New Bag - Provider: Aviva Johnson RN) PRN Medication Order 08/10/2023 08/11/2023 08/12/2023 aspirin chewable tablet (CANCELED) PRN, Starting on Thu08/11/23 at 1241, Until Thu08/11/23 at 1610, Intra-Operative (Intra-Procedure), Routine 1241 (Given - Provider: Shannan Garduno RN) clopidogreL (Plavix) tablet (CANCELED) PRN, Starting on Thu08/11/23 at 1243, Until Thu08/11/23 at 1610, Intra-Operative (Intra-Procedure), Routine 1243 (Given - Provider: Shannan Garduno RN) dextrose 10% infusion(Linked Group 2) 250 mL, at 1,000 mL/hr, Intravenous, EVERY 15 MIN PRN, Starting on Thu08/11/23 at 1835, Until Thu08/12/23 at 1258, For BG 50-70 mg/dL: Oral treatment preferred: If able to drink, give 120 mL juice or regular (not diet) soda OR if NPO, give 15 gram glucose 40% oral gel massaged into buccal mucosa OR if unconscious or uncooperative, give 25 gram (250 mL) dextrose 10% IV over 15 minutes per protocol OR, if no IV access, 1 mg glucagon IM. For BG less than 50 mg/dL: Oral treatment preferred: If able to drink, give 240 mL juice or regular (not diet) soda OR if NPO, give 30 gram glucose 40% oral gel massaged in buccal mucosa OR if unconscious or uncooperative, give 25 gram (250 mL) dextrose 10% IV over 15 minutes per protocol OR, if no IV access, 1 mg glucagon IM. Recheck BG in 15 minutes. May repeat juice/soda, gel, dextrose or glucagon once per episode. Notify provider if hypoglycemia does not resolve after two treatments. Providers should consider the following: administering longer-acting treatments for the duration of active insulin or hypoglycemia agent for persistent hypoglycemia and re-evaluating active insulin orders before administering the next dose. fentaNYL (pf) (50 mcg/mL) multi-dose injection (CANCELED) PRN, Starting on Thu08/11/23 at 1224, Until Thu08/11/23 at 1610, Intra-Operative (Intra-Procedure), Routine 1224 (Given - Provider: Shannan Garduno RN) glucagon (Glucagen) (1 mg/mL) injection solution 1 mg(Linked Group 2) 1 mg, Intramuscular, EVERY 15 MIN PRN, Starting on Thu08/11/23 at 1835, Until Thu08/12/23 at 1258, Low blood sugar, For BG 50-70 mg/dL: Oral treatment preferred: If able to drink, give 120 mL juice or regular (not diet) soda OR if NPO, give 15 gram glucose 40% oral gel massaged into buccal mucosa OR if unconscious or uncooperative, give 25 gram (250 mL) dextrose 10% IV over 15 minutes per protocol OR, if no IV access, 1 mg glucagon IM. For BG less than 50 mg/dL: Oral treatment preferred: If able to drink, give 240 mL juice or regular (not diet) soda OR if NPO, give 30 gram glucose 40% oral gel massaged in buccal mucosa OR if unconscious or uncooperative, give 25 gram (250 mL) dextrose 10% IV over 15 minutes per protocol OR, if no IV access, 1 mg glucagon IM. Recheck BG in 15 minutes. May repeat juice/soda, gel, dextrose or glucagon once per episode. Notify provider if hypoglycemia does not resolve after two treatments. Providers should consider the following: administering longer-acting treatments for the duration of active insulin or hypoglycemia agent for persistent hypoglycemia and re-evaluating active insulin orders before administering the next dose. , Routine glucose (Glutose) 40% oral geL(Linked Group 2) 15-30 g of glucose, Buccal, EVERY 15 MIN PRN, Starting on Thu08/11/23 at 1835, Until Thu08/12/23 at 1258, Low blood sugar, For BG 50-70 mg/dL: Oral treatment preferred: If able to drink, give 120 mL juice or regular (not diet) soda OR if NPO, give 15 gram glucose 40% oral gel massaged into buccal mucosa OR if unconscious or uncooperative, give 25 gram (250 mL) dextrose 10% IV over 15 minutes per protocol OR, if no IV access, 1 mg glucagon IM. For BG less than 50 mg/dL: Oral treatment preferred: If able to drink, give 240 mL juice or regular (not diet) soda OR if NPO, give 30 gram glucose 40% oral gel massaged in buccal mucosa OR if unconscious or uncooperative, give 25 gram (250 mL) dextrose 10% IV over 15 minutes per protocol OR, if no IV access, 1 mg glucagon IM. Recheck BG in 15 minutes. May repeat juice/soda, gel, dextrose or glucagon once per episode. Notify provider if hypoglycemia does not resolve after two treatments. Providers should consider the following: administering longer-acting treatments for the duration of active insulin or hypoglycemia agent for persistent hypoglycemia and re-evaluating active insulin orders before administering the next dose. 1 tube of Glutose-15 contains 15 grams of glucose (net weight of tube = 37.5 grams.), Routine heparin (porcine) (1,000 units/mL) injection (CANCELED) PRN, Starting on Thu08/11/23 at 1230, Until Thu08/11/23 at 1610, Intra-Operative (Intra-Procedure), Routine 1229 (Given - Provider: Shannan Garduno RN)1241 (Given - Provider: Shannan Garduno RN)1259 (Given - Provider: Shannan Garduno RN) iohexoL (Omnipaque) (350 mg/mL) solution (CANCELED) PRN, Starting on Thu08/11/23 at 1310, Until Thu08/11/23 at 1610, Intra-Operative (Intra-Procedure), Routine 1310 (Given - Provider: Jamal Vital MD) midazolam (pf) (Versed) (1 mg/mL) multi-dose injection (CANCELED) PRN, Starting on Thu08/11/23 at 1224, Until Thu08/11/23 at 1610, Intra-Operative (Intra-Procedure), Routine 1224 (Given - Provider: Shannan Garduno RN) nitroGLYcerin 100 mcg/mL intracoronary dilution (CANCELED) PRN, Starting on Thu08/11/23 at 1227, Until Thu08/11/23 at 1610, Intra-Operative (Intra-Procedure), Routine 1227 (Given - Provider: Jamal Vital MD)1300 (Given - Provider: Jamal Vital MD) ondansetron (pf) (Zofran) (2 mg/mL) injection 4 mg 4 mg, Intravenous, EVERY 8 HOURS PRN, Starting on Thu08/12/23 at 0012, Until Thu08/12/23 at 1258, Nausea 0023 (Given - Provid er: Betzaida Vegas RN) verapamiL (Isoptin) (2.5 mg/mL) injection (CANCELED) PRN, Starting on Thu08/11/23 at 1227, Until Thu08/11/23 at 1610, Administer over 2 Minutes, Intra-Operative (Intra-Procedure) 1227 (Given - Provider: Jamal Vital MD) Linked Groups Order Group 1: POCT Fingerstick Glucose (CANCELED) Routine, 4 TIMES DAILY BEFORE MEALS & AT BEDTIME, First occurrence on Thu08/11/23 at 2200, Until Specified, Consider choosing FOUR TIMES A DAY BEFORE MEALS AND AT BEDTIME as frequency for: Patients who have good hypoglycemia awareness: -Patients who are eating meals during the day and sleeping at night -Patients who are otherwise stable And insulin lispro (HumaLOG;Admelog) (100 unit/mL) subcutaneous injection vial 1-4 UnitsJump to med 1-4 Units, Subcutaneous, 4 TIMES DAILY BEFORE MEALS & NIGHTLY, First dose (after last modification) on Thu08/11/23 at 2100, Until Discontinued, CORRECTION BOLUS [1-4 Units] Sensitive Sliding Scale (BG in mg/dL): Correction factor 40 (1 unit of insulin is expected to drop the glucose 40 mg/dL) ?? BG 160 - 200 Give 1 unit BG 201 - 240 Give 2 units BG 241 - 280 Give 3 units and recheck BG in 2 hours. BG greater than 280, give 4 units and recheck BG in 2 hours. - If recheck BG is LESS than 280, give no insulin and resume schedule - If recheck BG is GREATER than or EQUAL to 280, give 4 units and repeat BG in 2 hours & call for new insulin orders. DO NOT hold if NPO, unless specifically told to do so. ?? Per Inpatient Subcutaneous Insulin Policy, recheck a BG of greater than 240 mg/dL in 2 hours., Routine Group 2: glucose (Glutose) 40% oral geLJump to med 15-30 g of glucose, Buccal, EVERY 15 MIN PRN, Starting on Thu08/11/23 at 1835, Until Thu08/12/23 at 1258, Low blood sugar, For BG 50-70 mg/dL: Oral treatment preferred: If able to drink, give 120 mL juice or regular (not diet) soda OR if NPO, give 15 gram glucose 40% oral gel massaged into buccal mucosa OR if unconscious or uncooperative, give 25 gram (250 mL) dextrose 10% IV over 15 minutes per protocol OR, if no IV access, 1 mg glucagon IM. For BG less than 50 mg/dL: Oral treatment preferred: If able to drink, give 240 mL juice or regular (not diet) soda OR if NPO, give 30 gram glucose 40% oral gel massaged in buccal mucosa OR if unconscious or uncooperative, give 25 gram (250 mL) dextrose 10% IV over 15 minutes per protocol OR, if no IV access, 1 mg glucagon IM. Recheck BG in 15 minutes. May repeat juice/soda, gel, dextrose or glucagon once per episode. Notify provider if hypoglycemia does not resolve after two treatments. Providers should consider the following: administering longer-acting treatments for the duration of active insulin or hypoglycemia agent for persistent hypoglycemia and re-evaluating active insulin orders before administering the next dose. 1 tube of Glutose-15 contains 15 grams of glucose (net weight of tube = 37.5 grams.), Routine Or dextrose 10% infusionJump to med 250 mL, at 1,000 mL/hr, Intravenous, EVERY 15 MIN PRN, Starting on Thu08/11/23 at 1835, Until Thu08/12/23 at 1258, For BG 50-70 mg/dL: Oral treatment preferred: If able to drink, give 120 mL juice or regular (not diet) soda OR if NPO, give 15 gram glucose 40% oral gel massaged into buccal mucosa OR if unconscious or uncooperative, give 25 gram (250 mL) dextrose 10% IV over 15 minutes per protocol OR, if no IV access, 1 mg glucagon IM. For BG less than 50 mg/dL: Oral treatment preferred: If able to drink, give 240 mL juice or regular (not diet) soda OR if NPO, give 30 gram glucose 40% oral gel massaged in buccal mucosa OR if unconscious or uncooperative, give 25 gram (250 mL) dextrose 10% IV over 15 minutes per protocol OR, if no IV access, 1 mg glucagon IM. Recheck BG in 15 minutes. May repeat juice/soda, gel, dextrose or glucagon once per episode. Notify provider if hypoglycemia does not resolve after two treatments. Providers should consider the following: administering longer-acting treatments for the duration of active insulin or hypoglycemia agent for persistent hypoglycemia and re-evaluating active insulin orders before administering the next dose. Or glucagon (Glucagen) (1 mg/mL) injection solution 1 mgJump to med 1 mg, Intramuscular, EVERY 15 MIN PRN, Starting on Thu08/11/23 at 1835, Until Thu08/12/23 at 1258, Low blood sugar, For BG 50-70 mg/dL: Oral treatment preferred: If able to drink, give 120 mL juice or regular (not diet) soda OR if NPO, give 15 gram glucose 40% oral gel massaged into buccal mucosa OR if unconscious or uncooperative, give 25 gram (250 mL) dextrose 10% IV over 15 minutes per protocol OR, if no IV access, 1 mg glucagon IM. For BG less than 50 mg/dL: Oral treatment preferred: If able to drink, give 240 mL juice or regular (not diet) soda OR if NPO, give 30 gram glucose 40% oral gel massaged in buccal mucosa OR if unconscious or uncooperative, give 25 gram (250 mL) dextrose 10% IV over 15 minutes per protocol OR, if no IV access, 1 mg glucagon IM. Recheck BG in 15 minutes. May repeat juice/soda, gel, dextrose or glucagon once per episode. Notify provider if hypoglycemia does not resolve after two treatments. Providers should consider the following: administering longer-acting treatments for the duration of active insulin or hypoglycemia agent for persistent hypoglycemia and re-evaluating active insulin orders before administering the next dose. , Routine documented in this encounter Care Teams [id number] Programmer Relationship Specialty Start Date End Date Tang Ling MD [address] [place] [id number] PCP - General General Internal Medicine 07/04/16 documented as of this encounter
--- OUTSIDE RECORDS SUMMARY | 2024-05-02 14:23 | XMS_ITS | Clinical Summary ---
Author Organization [facility] Address [facility] [place] [address] Care Team Providers Care Transformer Mechanic Name Role Phone Tang Ling MD Primary Care Provider Allergies Active Allergy Reactions Criticality Noted Date Comments Cis Free Text Allergy Hymenoptera (Bee) Stings. Hymenoptera Allergenic Extract Anaphylaxis High 09/16/2018 Ibuprofen HIVES Dulaglutide Other (See Comments) High 07/23/2018 headaches Medications Medication Sig Dispensed Refills Start Date End Date Status aspirin 81 mg EC tablet Take 81 mg by mouth daily. Active rosuvastatin (CRESTOR) 40 mg tablet Take 40 mg by mouth daily. Active nitroGLYcerin (NITROSTAT) 0.4 mg Tablet, Sublingual Place 1 tablet under the tongue every 5 minutes as needed for Chest pain. 90 tablet 12 05/29/2016 Active insulin aspart U-100 (NovoLOG) 100 unit/mL (3 mL) Insulin Pen Inject subcutaneously 3 times daily (before meals). Sliding scale Active citalopram (CeleXA) 20 mg Tablet Take 20 mg by mouth Daily. 01/11/2020 Active EPINEPHrine 0.3 mg/0.3 mL Auto-Injector EpiPen 2-Gwyn 0.3 mg/0.3 mL injection, auto-injector Take 1 auto as needed by injection route. Active FreeStyle Natalie 2 [place] MiscIndications:d iabetes mellitus 1 each by Other route daily. Indications: diabetes mellitus 1 each 05/20/2022 Active Additional Information Patient not taking.Reported on 09/21/2023 FreeStyle Natalie 2 Sensor KitIndications:di abetes mellitus 1 each by Other route every 14 days. Indications: diabetes mellitus 2 kit 05/20/2022 Active Additional Information Patient not taking.Reported on 09/21/2023 insulin glargine U-300 conc (Insulin Toujeo Max U-300 SoloStar) 300 unit/mL (3 mL) Insulin Pen Inject 54 Units subcutaneously nightly. Active clopidogreL (Plavix) 75 mg tablet Take 1 tablet by mouth daily. 90 tablet 3 08/11/2023 Active carvediloL (Coreg) 12.5 mg tablet Take 1 tablet by mouth 2 times daily (with meals). 60 tablet 3 04/26/2024 Active Active Problems Problem Noted Date Diagnosed Date CAD (coronary artery disease) 07/20/2017 Stress at home 07/06/2016 Overview (07/06/2016): Family members living with her and not helping out. She lost her car due to finances. Grandson is borrowing her car. S/P angioplasty with stent 05/28/2016 Chest pain 06/11/2013 CIS - Chest Pain CIS - DM CIS - Dyslipidemia CIS - GERD CIS - HTN Resolved Problems Problem Noted Date Diagnosed Date Resolved Date Unstable angina 06/11/2013 07/06/2016 Encounters Date Type Department Care Team Description 04/26/2024 1:00 PM EDT Office Visit Cardiology at [address] [phone] Daniel Alberts MD Rizzi, Scott A, MD Coronary artery disease, unspecified vessel or lesion type, unspecified whether angina present, unspecified whether [place] or transplanted heart; Chronic diastolic heart failure 04/26/2024 Travel from Last 3 Months Immunizations Name Administration Dates Next Due Influenza (Fluzone HD) Trivalent High Dose 05/29 Influenza Vaccine, Whole 05/29/2008 Family History Medical History Relation Comments Glaucoma Maternal Aunt Macular Degeneration Maternal Aunt Cataracts Mother Coronary Artery Disease Mother Macular Degeneration Mother Amblyopia Neg Hx Retinal Detachment Neg Hx Strabismus Neg Hx Relation Status Comments Maternal Aunt Mother Social History Tobacco Use Types Packs/Day Years Used Date Smoking Tobacco: Never Smokeless Tobacco: Never Alcohol Use Standard Drinks/Week Comments No 0 (1 standard drink = 0.6 oz pur e alcohol) [facility] IPV Inpatient Questions Answer Date Recorded Does [...] on file Sexual Orientation Not on file Last Filed Vital Signs Vital Sign Reading Time Taken Comments Blood Pressure 152/72 04/26/2024 12:49 PM EDT Pulse 82 04/26/2024 12:49 PM EDT Temperature 36.7 ??C (98.1 ??F) 08/12/2023 7:28 AM ES T Respiratory Rate 16 08/12/2023 7:28 AM EST Oxygen Saturation 97% 04/26/2024 12:49 PM EDT Inhaled Oxygen Concentration - - Weight 63.5 kg (140 lb) 04/26/2024 12:49 PM EDT Height 157.5 cm (5' 2) 04/26/2024 12:49 PM EDT Body Mass Index 25.61 04/26/2024 12:49 PM EDT Plan of Treatment Upcoming Encounters Date Type Department Care Team (Late st Contact Info) Description 07/06/2024 1:30 PM EST Office Visit Cardiology at [address] [phone] Delta Reyes MD [facility] CARDIOLOG[facility] [place] [address] Health Maintenance Due Date Last Done Comments Hepatitis C Screening 1963 Tetanus/Diphtheria/Pertussis Vaccines (1 - Tdap) 1964 Zoster vaccine (1 of 2) 1995 Advance Directive 2000 Bone Density Scan 2010 Pneumoccocal Vaccine: 65+ (1 of 1 - PCV) 2010 Covid-19 Vaccine (1 - season) 2024 Influenza (Flu) vaccine (1 o f 1 - Influenza standard series) 04/03/2024 05/29/2016, 05/29/2008 Advance Directives * Attempt Cardiopulmonary Resuscitation - Inpatient (Latest Code Status on File) Date Activated Date Inactivated Comments 08/11/2023 1:13 PM 08/12/2023 1:03 PM Question Answer Comments Code Status decision made by: Patient * Attempt Cardiopulmonary Resuscitation - Inpatient Date Activated Date Inactivated Comments 08/11/2023 11:50 AM 08/11/2023 1:13 PM Question Answer Comments Code Status decision made by: Patient * Full Code Date Activated Date Inactivated Comments 07/26/2018 5:34 PM 08/11/2023 10:23 AM Question Answer Comments Does patient have capacity to make decision: Yes * Full Code Date Activated Date Inactivated Comments 07/26/2018 1:36 PM 07/26/2018 5:34 PM Question Answer Comments Does patient have capacity to make decision: Yes * Full Code Date Activated Date Inactivated Comments 07/20/2017 1:37 PM 07/22/2017 7:12 PM Question Answer Comments Does patient have capacity to make decision: Yes Care Teams Transformer Mechanic Relationship Specialty Start Date End Date Tang Ling MD [address] [place] [address] PCP - General General Internal Medicine 07/04/16
--- OUTSIDE RECORDS SUMMARY | 2024-05-02 14:23 | XMS_ITS | Encounter Summary ---
Author Organization [facility] [place] [address] Care Team Providers Care Custom Miller Name Role Phone Tang Ling MD Primary Care Provider Reason for Referral * Consultation (IRAIS) - Closed Specialty Diagnoses / Procedures Referred By Contac t Referred To Contact Endocrinology Diagnoses Type 2 diabetes mellitus without complication, unspecified whether group home insulin use Tang Ling MD [address] [place] [phone] [facility] Endocrinology [address] [place] [phone] Referral ID Status Reason Start Date Expiration Date V isits Requested Visits Authorized [id number] Closed Consult, Test & Treat PCP Updated and/or Approved 02/20/2022 02/20/2023 6 6 Encounter Details Date Type Department Care Team (Latest Contact Info) Description 02/20/2022 Transcribe Orders eDH Incoming Referrals [phone] Tang Ling MD [address] [place], [place] [id number] Type 2 diabetes mellitus without complication, unspecified whether computer terminal operator insulin use Social History Tobacco Use Types Packs/Day Years Used Date Smoking Tobacco: Never Smokeless Tobacco: Never Alcohol Use Standard Drinks/Week Comments No 0 (1 standard drink = 0.6 oz pur e alcohol) social Sex and Gender Information Value Date Recorded Sex Assigned at Not on file Gender Identity Not on file Sexual Orientation Not on file documented as of this encounter Plan of Treatment Upcoming Encounters Date Type Department Care Team (Late st Contact Info) Description 07/06/2024 1:30 PM EST Office Visit Cardiology at [address] [phone] Delta Reyes MD [facility] [place] [address] Scheduled Referrals Name Type Priority Associated Diagnoses Order Schedule Referral to Endocrinology Outpatient Referral Routine Type 2 diabetes mellitus without complication, unspecified whether group home insulin use Ordered: 02/20/2022 documented as of this encounter Visit Diagnoses Diagnosis Type 2 diabetes mellitus without complication, unspecified whether computer terminal operator insulin use documented in this encounter Care Teams Custom Miller Relationship Specialty Start Date End Date Tang Ling MD [address] [place] [phone] PCP - General General Internal Medicine 07/04/16 documented as of this encounter
--- OUTSIDE RECORDS SUMMARY | 2024-05-02 14:23 | XMS_ITS | Encounter Summary ---
Author Organization [facility] Address [facility] [place] [address] Care Team Providers Care Fire Captain Marine Name Role Phone Tang Ling MD Primary Care Provider [phone] Encounter Details Date Type Department Care Team (Latest Contact Info) Description 09/21/2023 3:40 PM EST Office Visit Cardiology at [address] [phone] Jeniffer Ventura, TRAIN ATTENDANT [facility] [place] [address] ASCVD (arteriosclerotic cardiovascular disease); Hyperlipidemia, unspecified hyperlipidemia type; NARVAEZ (dyspnea on exertion) Social History Tobacco Use Types Packs/Day Years [...] Sign Reading Time Taken Comments Blood Pressure 147/70 09/21/2023 3:24 PM EST Pulse 87 09/21/2023 3:24 PM EST Temperature - - Respiratory Rate - - Oxygen Saturation 97% 09/21/2023 3:24 PM EST Inhaled Oxygen Concentration - - Weight 65.5 kg (144 lb 4.8 oz) 09/21/2023 3:24 P M EST Height 157.5 cm (5' 2) 09/21/2023 3:24 PM EST Body Mass Index 26.39 09/21/2023 3:24 PM EST documented in this encounter Progress Notes * Jeniffer Ventura, TRAIN ATTENDANT - 09/21/2023 3:40 PM EST Images from the original note were not included. Formerly [facility] [place] [id number] GENERAL CARDIOLOGY OUTPATIENT FOLLOW UP Subjective: Patient Active Problem List Diagnosis CAD (coronary artery disease) Stress at home Family members living with her and not helping out. She lost her car due to finances. Grandson is borrowing her car. S/P angioplasty with stent Chest pain CIS - Chest Pain CIS - DM CIS - Dyslipidemia CIS - GERD CIS - HTN Patient ID: Lou Mo is a 78 y.o. female with the following cardiac history: # ASCVD: s/p LAD and D1 PCI 2015, LHC 2017 with patent prior stents and 45% mid LAD lesion negativeby iFR and FFR; s/p LHC with NIESHA to pLAD and dLAD 08/2023 # HTN # HLD PMH also notable for: type 2 DM, h/o PE HPI: Presents for follow up, last seen in Sep 2020. In the interim, she had been followed by [facility] Cardiology. She recently had increased anginal symptoms for which stress echo was non-diagnostic and NM stress test was reassuring. However, she continued to experience symptoms following the stress test and was referred for an urgent cardiac catheterization in August which revealed 90% pLAD stenosisand 70% dLAD stenosis, both of which were stented with drug-eluting stents. Today, she presents with her daughter. She states that she has been having some musculoskeletal soreness in her left chest, especially when her granddaughter or cat sit on it. She has not noticed anychange in her shortness of breath since her PCI last month. Although, she does report that she was able to walk in here without having to catch her breath today, which is a change from the past. Her a ctivity is limited due to occasional dizziness, which comes on randomly. She fears that she will fall, but has had no recent falls. She denies syncope. Has chronic right lower extremity edema, which is stable. Has stopped Jardiance due to yeast infections. No pulmonary disease that she knows of. REVIEW OF SYSTEMS: Review of Systems -- see above MEDICATIONS: Current Outpatient Medications Medication Sig Dispense Refill insulin aspart U-100 (NovoLOG) 100 unit/mL (3 mL) Insulin Pen Inject subcutaneously 3 times daily (before meals). Sliding scale metoprolol succinate (TOPROL-XL) 50 mg Tablet Sustained Release 24 hr Take 0.5 tablets by mouth daily. (Patient taking differently: Take 50 mg by mouth daily.) 90 tablet 3 nitroGLYcerin (NITROSTAT) 0.4 mg Tablet, Sublingual Place 1 tablet under the tongue every 5 minutesas needed for Chest pain. 90 tablet 12 rosuvastatin (CRESTOR) 40 mg tablet Take 40 mg by mouth daily. clopidogreL (Plavix) 75 mg tablet Take 1 tablet by mouth daily. 90 tablet 3 insulin glargine U-300 conc (Insulin Toujeo Max U-300 SoloStar) 300 unit/mL (3 mL) Insulin Pen Inject 54 Units subcutaneously nightly. FreeStyle Natalie 2 Antlers Misc 1 each by Other route daily. Indications: diabetes mellitus (Patient not taking: Reported on 09/21/2023) 1 each 0 FreeStyle Natalie 2 Sensor Kit 1 each by Other route every 14 days. Indications: diabetes mellitus (Patient not taking: Reported on 09/21/2023) 2 kit 0 citalopram (CeleXA) 20 mg Tablet Take 20 mg by mouth Daily. EPINEPHrine 0.3 mg/0.3 mL Auto-Injector EpiPen 2-Gwyn 0.3 mg/0.3 mL injection, auto-injector Take 1 auto as needed by injection route. aspirin 81 mg EC tablet Take 81 mg by mouth daily. No current facility-administered medications for this visit. Facility-Administered Medications Ordered in Other Visits Medication Dose Route Frequency Provider Last Rate Last Admin diphenhydrAMINE/aluminum-magnesium hydroxide with simethicone/lidocaine (BMX) oral suspension 5-15 mL Oral Once PRN Gideon Rodriguez MD Objective: VITAL SIGNS: BP 147/70 Pulse 87 Ht 157.5 cm (5' 2) Wt 65.5 kg (144 lb 4.8 oz) SpO2 97% BMI 26.39 kg/m?? PHYSICAL EXAM: Physical Exam Vitals reviewed. Constitutional: General: She is not in acute distress. Appearance: She is well-developed. Neck: Vascular: No JVD. Cardiovascular: Rate and Rhythm: Normal rate and regular rhythm. Pulses: Intact distal pulses. Heart sounds: Normal heart sounds. No murmur heard. Pulmonary: Effort: Pulmonary effort is normal. Breath sounds: Normal breath sounds. No rales. Abdominal: General: Bowel sounds are normal. Palpations: Abdomen is soft. Musculoskeletal: Right lower leg: No edema. Left lower leg: No edema. Skin: General: Skin is warm and dry. Neurological: Mental Status: She is alert and oriented to person, place, and time. Psychiatric: Behavior: Behavior normal. ECG: I have personally reviewed today's ECG, which shows: HR 83, sinus rhythm LABS: Recent Results (from the past 72 hour(s)) EKG 12 Lead Result Value Ref Range Ventricular rate 83 BPM Atrial Rate 83 BPM P-R Interval 186 ms QRS Duration 74 ms Q-T Interval 378 ms QTC Calculated (Bezet) 444 ms Calculated P Clayton 37 degrees Calculated R Clayton -16 degrees Calculated T Clayton 49 degrees INTERPRETATION Normal sinus rhythm Normal ECG When compared with ECG of 11-AUG-2023 15:10, MS interval has decreased [facility] 08/2023 Hemodynamics: Left Heart Pressures Resting: Syst Diast EDP a v m Ao 118 57 87 LV 117 5 Coronary Angiography: Dominance: Right Left Main There was mild diffuse (<=25% stenosis) disease of the entire vessel segment of the left main artery. The left main was large. Left Anterior Descending There was mild diffuse (<=25% stenosis) disease of the entire vessel segment of the left anterior descending artery (LAD). The LAD was large. The proximal segment of the LAD had a long segmental 90% stenosis. There also was a 70% single discrete stenosis of the distal segment of the LAD. There was a 30% single discrete stenosis of the proximal segment of the first diagonal branch (Diagonal 1) of the LAD. The Diagonal 1 was moderate in size. Left Circumflex There was mild diffuse (<=25% stenosis) disease of the entire vessel segment of the left circumflex artery (LCX). The LCX was large. Right Coronary Artery There was mild diffuse (<=25% stenosis) disease of the entire vessel segment of the right coronary artery (RCA). The RCA was large. Indication for Intervention: Coronary intervention was indicated for treatment of stable angina. The priority for the procedure was Elective. The NCDR indication for the procedure was Stable angina. LVEF within one week was 65%. Syntax Score was Low. Intervention Summary: Left Anterior Descending Artery Proximal 90% Stent insertion was performed on the 90% stenosis in the proximal segment of the LAD. This was a drug eluting in-stent restenosis lesion. According to the ACC/AHA classification system, this lesion was a type B2 moderate risk lesion. Management of recurrent restenosis was the indication for stent insertion. A guidewire was placed across this lesion. Vessel flow pre intervention was YAHAIRA 3. Lesion length was 15mm. This was a previously treated lesion on 05/28/2016. Stent insertion was accomplished through a 6 Fr. EBU 3.5 guide. The lesion was predilated with a 2.50mm EUPHORA 15 MM balloon with a maximum inflation pressure of 18 atmospheres. A premounted 3.00 x 22 mm Darien Bannock (NIESHA) was deployed with a maximum inflation pressure of 20 atmospheres. Following stent deployment, the lesion was dilated using a 3.25mm NC EUPHORA 15 MM balloon with a maximum inflation pressure of 27 atmospheres. The final outcome was defined as successful. There was no residual stenosis following this intervention. The final YAHAIRA flow was 3. Distal 70% Stent insertion was performed on the 70% stenosis in the distal segment of the LAD. This was a drug eluting in-stent restenosis lesion. This lesion was designated a type B2 moderate risk lesion based on ACC/AHA classification system. Management of recurrent restenosis was the indication for stent insertion. A guidewire was placed across this lesion. Vessel flow pre intervention was YAHAIRA 3. Lesion length was 10mm. This was a previously treated lesion on 05/28/2016. Stent insertion was accomplished through a 6 Fr. EBU 3.5 guide. A premounted 2.00 x 12 mm Sergey Bannock (NIESHA) was deployed with a maximum inflation pressure of 25 atmospheres. Another stent insertion was accomplished through a 6 Fr. EBU 3.5 guide. A premounted 2.00 x 08 mm Sergey Bannock (NIESHA) was deployed with a maximum inflation pressure of 15 atmospheres. The final outcome was defined as successful. A coronary arteriolar vasodilator was administered as part of the intervention on this lesion. There was no residual stenosis following this intervention. The final YAHAIRA flow was 3. Vascular Access: Vascular Access Management: Mechanical Compression of the right radial artery access site was performed. Dual Antiplatelet (DAPT) Recommendations: Drug eluting stent (NIESHA) inserted for stable ischemic heart disease (SIHD). P2Y12 Loading dose Clopidogrel 600 mg PO given in lab. Recommended anti-platelet/anti-thrombotic regimen: Continue aspirin 81 mg daily for indefinitely. Continue clopidogrel 75 mg daily for indefinitely. These recommendations are made at the time of the intervention. Patient and provider preferences or a changing clinical situation may require modification of this regimen. Consult [facility] Interventional Cardiology for questions. Conclusions: * One vessel coronary artery disease (LAD) * Successful stent insertion of the proximal LAD lesion * Successful stent insertion of the distal LAD lesion * See Dual Antiplatelet (DAPT) Recommendations above Stress TTE at [facility] 04/2023 NM stress MPI 10/2020 IMPRESSION 1. No ischemia or scar. 2. Left ventricular function is normal. TTE 10/2018 SUMMARY: 1. Technically limited study. 2. The left ventricular chamber size is normal. Basal septal hypertrophy is observed. The quantitative left ventricular ejection fraction by biplane Fagan's method is 75%. There are no left ventricular segmental wall motion abnormalities present. Doppler assessment is consistent with elevated left sided filling pressure. 3. Right ventricular chamber size, wall thickness, and systolic function are within normal limits. 4. The left atrium is normal in size. The right atrium appears normal. 5. Mild to moderate (1-2+/4+) aortic valve regurgitation is present. 6. See remainder of report for additional findings. Assessment and Plan: ASSESSMENT # ASCVD # HTN # HLD S/p PCI to proximal and distal LAD in August for symptoms c/w stable angina. Unfortunately, has not noticed any improvement in NARVAEZ. She had nonobstructive disease elsewhere. EF is preserved and diastolic function look normal on her last echo. EKG today is nonischemic. At this point, I suspect NARVAEZ is likely due to a noncardiac etiology. She has declined cardiac rehab due to transportation issues,but may consider it in the next couple of months. No HF symptoms, euvolemic. She is a candidate forindefinite DAPT. BP is elevated today, likely due to stress. We do not have any recent lipid panelsin our system. She follows with [facility] cardiology, and plans to continue seeing them. PLAN Continue aspirin (indefinitely), Plavix (indefinitely), metoprolol, rosuvastatin. Defer to [facility] cardiology for updated lipid panel and BP regimen adjustments based on serial readings. Encouraged her to try to participate in cardiac rehab. Recommended follow up with PCP for further, non-cardiac, work up of NARVAEZ. Encouraged daily efforts at aerobic activity and a heart healthy diet. Follow up: as needed-- follows with [facility] cardiology Total on this patient encounter/visit: 35 minutes BEBA Rouse, INFORMATICIST-BC, TRAIN ATTENDANT [facility] Cardiovascular Medicine Pager [phone] 09/21/2023 documented in this encounter Plan of Treatment Upcoming Encounters Date Type Department Care Team (Late st Contact Info) Description 07/06/2024 1:30 PM EST Office Visit Cardiology at [address] [phone] Delta Reyes MD [facility] [place] [address] documented as of this encounter Procedures Procedure Name Priority Date/Time Associated Diagnosis Comments EKG 12-LEAD Routine 09/21/2023 3:35 PM EST ASCVD (arteriosclerotic cardiovascular disease) documented in this encounter Results * EKG 12 Lead (09/21/2023 3:35 PM EST) Ventricular rate 83 BPM MUSE SYSTEM Atrial Rate 83 BPM MUSE SYSTEM P-R Interval 186 ms MUSE SYSTEM QRS Duration 74 ms MUSE SYSTEM Q-T Interval 378 ms MUSE SYSTEM QTC Calculated (Bezet) 444 ms MUSE SYSTEM Calculated P Clayton 37 degrees MUSE SYSTEM Calculated R Clayton -16 degrees MUSE SYSTEM Calculated T Clayton 49 degrees MUSE SYSTEM INTERPRETATION Normal sinus rhythm Normal ECG When compared with ECG of 11-AUG-2023 15:10, MS interval has decreased Confirmed by MD Jennifer, Gideon ([id number]) on 09/21/2023 5:14:30 PM MUSE SYSTEM 09/21/2023 3:35 PM EST 09/21/2023 5:14 PM EST Jeniffer Ventura TRAIN ATTENDANT ECG ORDERABLES MUSE SYSTEM documented in this encounter Visit Diagnoses Diagnosis ASCVD (arteriosclerotic cardiovascular disease) Unspecified cardiovascular disease Hyperlipidemia, unspecified hyperlipidemia type NARVAEZ (dyspnea on exertion) Other dyspnea and respiratory abnormality documented in this encounter Care Teams Fire Captain Marine Relationship Specialty Start Date End Date Tang Ling MD [address] [place] [phone] PCP - General General Internal Medicine 07/04/16 documented as of this encounter
--- OUTSIDE RECORDS SUMMARY | 2024-05-02 14:23 | XMS_ITS | Encounter Summary ---
Author Organization [facility] [place] [address] Care Team Providers Care Landscape Crew Member Name Role Phone Tang Ling MD Primary Care Provider Encounter Details Date Type Department Care Team (Late st Contact Info) Description 10/15/2020 Notes Only Cardiology at [address] [phone] Jeniffer Ventura SOFT WORK WRAPPER LAYER AND EXAMINER [facility] [place] [address] Social History Tobacco Use Types Packs/Day Years Used Date Smoking Tobacco: Never Smokeless Tobacco: Never Alcohol Use Standard Drinks/Week Comments No 0 (1 standard drink = 0.6 oz pur e alcohol) social Sex and Gender Information Value Date Recorded Sex Assigned at Not on file Gender Identity Not on file Sexual Orientation Not on file documented as of this encounter Progress Notes * Jeniffer Ventura APRN - 10/15/2020 8:02 AM EDT Nuclear stress test on 10/08/20 results reviewed: FINDINGS: ?? No fixed or reversible perfusion defects are present. ?? Functional analysis: ?? Myocardial function: There is normal wall thickening and wall motion. Left ventricular ejection fraction: 71% (normal greater than than 50%). ?? INCIDENTAL CT FINDINGS: See separate report ?? IMPRESSION 1. No ischemia or scar. 2. Left ventricular function is normal. In addendum to office note on 09/24/20 for pre-op cardiac clearance for rotator cuff repair surgery,her nuclear stress test does not show evidence of ischemia, therefore it is reasonable to proceed with surgery. ?? There is some risk inherent to surgery that cannot be significantly altered except through continuation of guideline directed medical therapy throughout the perioperative period and through the usualcareful management of hemodynamics in the perioperative period. ? In general, minimize risk of perioperative cardiac complications with the following:? Aggressive rate-product control ?? Avoidance of perioperative hypothermia ?? Avoidance of significant anemia ?? Good pain control ?? Low threshold for diuresis if any signs of fluid overload/heart failure (remember two peaks to incidence of post-operative heart failure: first, in recovery area coincident with extubation and ending of positive pressure ventilation; second, 24-48 hours post-op as fluids given intraoperatively are mobilized ?? Early treatment of any cardiac ischemia post-operatively if it occurs (remember postoperative cardiac ischemia often manifests atypically with unexplained dyspnea, hypotension, arrhythimias, mental status changes, etc. ?? Please ask for involvement of cardiology consult team in perioperative management related to cardiac issues ? I also recommended that the patient participate in a phase 3 cardiac rehab program following surgery to improve her conditioning and exercise tolerance. Jeniffer Ventura, MSN, OPHTHALMIC TECHNICIAN-BC, SOFT WORK WRAPPER LAYER AND EXAMINER [facility] Cardiovascular Medicine documented in this encounter Plan of Treatment Upcoming Encounters Date Type Department Care Team (Late st Contact Info) Description 07/06/2024 1:30 PM EST Office Visit Cardiology at [address] [phone] Delta Reyes MD [facility] [place] [address] documented as of this encounter Visit Diagnoses Not on filedocumented in this encounter Care Teams Landscape Crew Member Relationship Specialty Start Date End Date Tang Ling MD [address] [place] [phone] PCP - General General Internal Medicine 07/04/16 documented as of this encounter
--- OUTSIDE RECORDS SUMMARY | 2024-05-02 14:23 | XMS_ITS | Encounter Summary ---
Author Organization [facility] Address [facility] [place] [address] Care Team Providers Care Pocket Builder Name Role Phone Tang Ling MD Primary Care Provider Reason for Referral * Diagnostic Test (Routine) - Closed Specialty Diagnoses / Procedures Referred By Vanesa soto Referred To Contact Radiology Diagnoses ASCVD (arteriosclerotic cardiovascular disease) Procedures NM Pharmacologic Stress CT Component Jeniffer Ventura APRN [facility] [place] [address] [place] [address] Referral ID Status Reason Start Date Expiration Date V isits Requested Visits Authorized [id number] Closed Specialty Service Requested 09/24/2020 03/24/2022 1 1 Reason for Visit * Diagnostic Test (Routine) - Closed Specialty Diagnoses / Procedures Referred By Vanesa soto Referred To Contact Radiology Diagnoses ASCVD (arteriosclerotic cardiovascular disease) Procedures NM Pharmacologic Stress CT Component Jeniffer Ventura CERTIFIED GREEN BUILDING ENGINEER [facility] [place] [address] [place] [address] Referral ID Status Reason Start Date Expiration Date V isits Requested Visits Authorized [id number] Closed Specialty Service Requested 09/24/2020 03/24/2022 1 1 Encounter Details Date Type Department Care Team (Latest Contact Info) Description 10/08/2020 9:46 AM EST - 10/08/2020 11:59 PM EST Hospital Encounter Nuclear Medicine at [facility] [place] [address] Jeniffer Ventura, CERTIFIED GREEN BUILDING ENGINEER [facility] [place] [address] ASCVD (arteriosclerotic cardiovascular disease) Discharge Disposition: Home [...] on file documented as of this encounter Medications at Time of Discharge Medication Sig Dispensed Refills Start Date End Date insulin aspart U-100 (NovoLOG) 100 unit/mL (3 [...] tablet Take 40 mg by mouth daily. metoprolol succinate (TOPROL-XL) 50 mg Tablet Sustained Release 24 hrIndications:Coronar y artery disease, angina presence unspecified, unspecified vessel or lesion type, unspecified whether eek or transplanted heart,Chest pain, unspecified type Take 0.5 tablets by mouth daily. 90 tablet 3 09/16/2018 04/26/2024 insulin degludec (Insulin Tresiba U-100) 100 unit/mL Solution Sliding scale between 2-10 units 09/21/2023 diclofenac (VOLTAREN) 50 mg Tablet, Delayed Release (E.C.) TAKE ONE TABLET BY MOUTH EVERY DAY 5 08/27/2018 08/12/2023 documented as of this encounter Plan of Treatment Upcoming Encounters Date Type Department Care Team (Late st Contact Info) Description 07/06/2024 1:30 PM EST Office Visit Cardiology at [address] [address] Delta Reyes MD [facility] [place] [address] documented as of this encounter Procedures Procedure Name Priority Date/Time Associated Diagnosis Comments NM PHARMACOLOGIC STRESS CT COMPONENT Routine 10/08/2020 1:19 PM EST ASCVD (arteriosclerotic cardiovascular disease) documented in this encounter Results * NM Pharmacologic Stress CT Component (10/08/2020 1:19 PM EST) Anatomical Region Laterality Modality Nuclear Medicine Narrative 10/08/2020 3:42 PM EST EXAMINATION: NM PHARMACOLOGIC STRESS CT COMPONENT CLINICAL HISTORY: Study performed for attenuation correction of the myocardial perfusion scan. TECHNIQUE: A limited field of view, non-contrast, non-breath hold, low dose CT scan of the region surrounding the myocardium was performed for the purpose of attenuation correction of the myocardial perfusion scan. COMPARISON: None INCIDENTAL CT FINDINGS: Coronary and aortic calcifications. Thank you for letting us participate in the care of this patient. For questions regarding this report, please contact the number below. ? Electronically signed by: Van Rosenberg MD, [facility] ([phone]), at 10/08/2020 3:42 PM Procedure Note Van Rosenberg MD - 10/08/2020 EXAMINATION: NM PHARMACOLOGIC STRESS CT COMPONENT CLINICAL HISTORY: Study performed for attenuation correction of themyocardial perfusion scan. TECHNIQUE: A limited field of view, non-contrast, non-breath hold, lowdose CT scan of the region surrounding the myocardium was performed for thepurpose of attenuation correction of the myocardial perfusion scan. COMPARISON: None INCIDENTAL CT FINDINGS: Coronary and aortic calcifications. Thank you for letting us participate in the care of this patient. Forquestions regarding this report, please contact the number below. Electronically signed by: Van Rosenberg MD, [facility]([phone]), at 10/08/2020 3:42 PM Jeniffer Ventura CERTIFIED GREEN BUILDING ENGINEER IMG NM ORDERABLES documented in this encounter Visit Diagnoses Diagnosis ASCVD (arteriosclerotic cardiovascular disease) Unspecified cardiovascular disease documented in this encounter Care Teams Pocket Builder Relationship Specialty Start Date End Date Tang Ling MD [address] [place] [phone] PCP - General General Internal Medicine 07/04/16 documented as of this encounter
--- OUTSIDE RECORDS SUMMARY | 2024-05-02 14:23 | XMS_ITS | Encounter Summary ---
Author Organization Replaced By [facility] Address [facility] [place] [address] Care Team Providers Care Olericulture Teacher Name Role Phone Tang Ling MD Primary Care Provider [phone] Encounter Details Date Type Department Care Team (Late st Contact Info) Description 08/06/2021 External [place] [address] Social History Tobacco Use Types Packs/Day Years [...] 1:30 PM EST Office Visit Cardiology at [address] [address] Delta Reyes MD [facility] DR [place] [address] documented as of this encounter Procedures Procedure Name Priority Date/Time Associated Diagnosis Comments ECG SCAN Routine 08/06/2021 documented in this encounter Results * Scan Doc: ECG (08/06/2021) Historical Provider MD KAUFMAN MGShakir SCAN EX T ORDR/RSLT documented in this encounter Visit Diagnoses Not on filedocumented in this encounter Care Teams Olericulture Teacher Relationship Specialty Start Date End Date Tang Ling MD [address] [address] PCP - General General Internal Medicine 07/04/16 documented as of this encounter
--- OUTSIDE RECORDS SUMMARY | 2024-05-02 14:23 | XMS_ITS | Encounter Summary ---
Author Organization [facility] Address [facility] [place] [address] Care Team Providers Care Car Rental Deliverer Name Role Phone Tang Ling MD Primary Care Provider [phone] Encounter Details Date Type Department Care Team (Latest Contact Info) Description 05/20/2022 11:35 AM EDT Laboratory Appointment Lab [address] [place] [phone] Type 2 diabetes mellitus with hyperglycemia, with long-term current use of insulin Social History Tobacco Use Types Packs/Day Years [...] 1:30 PM EST Office Visit Cardiology at [address] [phone] Delta Reyes MD [facility] [place] [address] documented as of this encounter Procedures Procedure Name Priority Date/Time Associated Diagnosis Comments HC CREATININE - NON BLOOD Routine 05/20/2022 11:27 AM EDT Type 2 diabetes mellitus with hyperglycemia, with long-term current use of insulin HC THYROID STIMULATING HORMONE, SERUM Routine 05/20/2022 11:20 AM EDT Type 2 diabetes mellitus with hyperglycemia, with long-term current use of insulin HC HEMOGLOBIN A1C Routine 05/20/2022 11: 20 AM EDT Type 2 diabetes mellitus with hyperglycemia, with long-term current use of insulin LIPID PANEL (REFLEX DIRECT LDL) Routine 05/20/2022 11:20 AM EDT Type 2 diabetes mellitus with hyperglycemia, with long-term current use of insulin HC VENIPUNCTURE Routine 05/20/2022 11:20 AM EDT Type 2 diabetes mellitus with hyperglycemia, with long-term current use of insulin documented in this encounter Results * U Albumin/Cre Ratio (05/20/2022 11:27 AM EDT) Albumin / Creatinin Ratio, Urine 11 0 - 29 mcg/mg Cr [facility] Comment: Reference Ranges: <30 mcg/mg: Normal 30-300 mcg/mg: Moderately increased albuminuria.* >300 mcg/mg: Severely increased albuminuria. * ACEI or ARB recommended if diabetic; suggested if BP>130/80 without diabetes ACEI or ARB strongly recommended if diabetic; recommended if BP>130/80 without diabetes Two of three specimens collected within a 3 to 6 month period should be abnormal before considering a patient to have albuminuria. Transient causes: exercise, fever, infection, CHF, marked hyperglycemia or hypertension. Persistent albuminuria indicates CKD and is an independent risk factor for ASCVD. ADA Standards of Medical Care in Diabetes-2016; KDIGO: Kidney International Supplements (2012) 2, 357? 362 Albumin, Urine 11.6 mg/L [facility] Creatinine, Urine 103 mg/dL [facility] Urine 05/20/2022 11:2 7 AM EDT 05/20/2022 11:57 AM EDT Narrative Resulting Agency Comment Spec In Lab Miki Ledesma MD URINE ORDERABLES [facility] [place] [address] * TSH [place] (05/20/2022 11:20 AM EDT) Thyroid Stimulating Hormone 1.91 0.27 - 4.20 mcIU/mL [facility] Comment: Reference Interval (mcIU/mL): Females: ??First Trimester: 0.23-3.88 ??Second Trimester: 0.22-3.90 ??Third Trimester: 0.44-4.66 Blood 05/20/2022 11:2 0 AM EDT 05/20/2022 11:38 AM EDT Narrative Resulting Agency Comment Spec In Lab Miki Ledesma MD CHEMISTRY ORDERABLES [facility] [place] [address] * (ABNORMAL) Hemoglobin A1c (05/20/2022 11:20 AM EDT) Hemoglobin A1c 8.9(H) 4.3 - 5.6 % [facility] Comment: Reference Range: 4.3 - 5.6% 5.7 - 6.4% - Increased Risk of Developing Diabetes Mellitus >= 6.5% - Consistent with diagnosis of Diabetes Mellitus In the absence of hyperglycemia (i.e. plasma glucose > 200 mg/dL) or classic symptoms of hyperglycemia a repeat measurement of HbA1c should be performed on a separate sample to confirm the diagnosis. Diagnosis and Classification of Diabetes Mellitus, Diabetes Care 2013; 36: Suppl. 1, G67-08 Estimated Average Glucose See note mg/dL [facility] Comment: Estimated Average Glucose not appropriate for patients over 70 years of age. eAG equivalents for HbA1c percentages: HbA1c(%) ?eAG(mg/dL) 6.0 ?126 6.5 ?140 7.0 ?154 7.5 ?169 8.0 ?183 8.5 ?197 9.0 ?212 9.5 ?226 10.0 ? 240 Limitations: The eAG calculation has not been validated on women, individuals below 18 years old and above 70 years old, and individuals with hemoglobinopathies. Additional resources are available on the ADA website. Shekhar BILLINGS, Delaney J, Giovanni R, et al. ??Translating the A1C assay into estimated average glucose values. ??Diabetes Care 2008:31(8):5170-5206. Blood 05/20/2022 11:2 0 AM EDT 05/20/2022 11:38 AM EDT Narrative Resulting Agency Comment Spec In Lab Miki Ledesma MD CHEMISTRY ORDERABLES [facility] [place] [phone] * Lipid Panel (Reflex Direct LDL) (05/20/2022 11:20 AM EDT) Cholesterol, Total 234 mg/dL [facility] Comment: Lower Risk: <200 mg/dL Average Risk: 200-239 mg/dL Higher Risk: >ko=585 mg/dL Triglyceride 238 mg/dL [facility] Comment: Average Risk/Lower Risk: <150 mg/dL Borderline High Risk: 150-199 mg/dL High Risk: 200-499 mg/dL Very High Risk: >tv=126 mg/dL HDL Cholesterol 42 mg/dL [facility] Comment: Males: ?? Higher Risk: <40 mg/dL Females: ?? Higher Risk: <50 mg/dL LDL Cholesterol 144 mg/dL [facility] Comment: Lowest Risk: <100 mg/dL Lower Risk: 100-129 mg/dL Borderline High Risk: 130-159 mg/dL High Risk: 160-189 mg/dL Very High Risk: >oj=782 mg/dL Cholesterol/HDL Ratio 5.6 ratio [facility] Lipid Interpretation See Note [facility] Comment: Lipid management should be guided by a patient? s ASCVD risk, goals and preferences. ACC/AHA Guidelines recommend high intensity statin if clinical ASCVD or LDL greater than or equal to 190 mg/dL. http://PurposeEnergy.com/UYD-ILX-Asdhgwqdw Adults aged 40-75 with LDL 70-189 mg/dL should have their 10 year ASCVD risk estimated with the ACC/AHA ASCVD risk ground mixer http://tools.acc.org/MAJCC-Tdcr-Pbdffpepl/ Statin should be discussed if risk greater than or equal to 7.5% in non-diabetics. With diabetes, moderate intensity statin is recommended if risk less than 7.5%, high intensity if risk greater than or equal to 7.5%. Annual lipid monitoring on statins is not necessary. Evaluate secondary causes of Triglycerides greater than 500 mg/dL or LDL greater than 190 mg/dL: See table 6 of ACC/AHA Guideline. Lifestyle modification is a critical component of ASCVD risk reduction. Blood 05/20/2022 11:2 0 AM EDT 05/20/2022 11:38 AM EDT Narrative Resulting Agency Comment Spec In Lab Miki Ledesma MD CHEMISTRY ORDERABLES [facility] [place] [address] * (ABNORMAL) Basic Metabolic Panel (non-fasting) (05/20/2022 11:20 AM EDT) Glucose 365(H) 65 - 199 mg/dL [facility] Comment:Diabetes: >=200 mg/d L plus symptoms Blood Urea Nitrogen 14 8 - 18 mg/dL [facility] Creatinine 0.99 0.70 - 1.20 mg/dL [facility] Sodium 138 135 - 145 mmol/L [facility] Potassium 4.1 3.5 - 5.0 mmol/L [facility] Comment: Please note: ??Patients with WBC >100,000 may have falsely elevated Potassium levels. ??For accurate Potassium quantification in these patients send serum separator tube (gold top) for subsequent determinations. ??Contact the Clinical Chemistry Laboratory if there are any questions. Chloride 103 98 - 107 mmol/L [facility] Carbon Dioxide 26 22 - 31 mmol/L [facility] Anion Gap 9 5 - 15 mmol/L [facility] Calcium 9.1 8.5 - 10.5 mg/dL [facility] Est Glomerular Filtration Rate 59(L) >=60 mL/min/1. 73 m?? [facility] Comment: This patient's estimated GFR [...] and symptoms in addition to eGFR. Blood 05/20/2022 11:2 0 AM EDT 05/20/2022 11:38 AM EDT Narrative Resulting Agency Comment Spec In Lab Miki Ledesma MD CHEMISTRY ORDERABLES [facility] [place] [address] documented in this encounter Visit Diagnoses Diagnosis Type 2 diabetes mellitus with hyperglycemia, with long-term current use of insulin documented in this encounter Care Teams Car Rental Deliverer Relationship Specialty Start Date End Date Tang Ling MD [address] [place] [phone] PCP - General General Internal Medicine 07/04/16 documented as of this encounter
--- OUTSIDE RECORDS SUMMARY | 2024-05-02 14:23 | XMS_ITS | Encounter Summary ---
Author Organization [facility] Address [facility] [place] [address] Care Team Providers Care Worsted Winder Name Role Phone Tang Ling MD Primary Care Provider [phone] Encounter Details Date Type Department Care Team (Latest Contact Info) Description 04/26/2024 Travel Social History Tobacco Use Types Packs/Day Years [...] 1:30 PM EST Office Visit Cardiology at [address] [address] Delta Reyes MD [facility] [address] documented as of this encounter Visit Diagnoses Not on filedocumented in this encounter Care Teams Worsted Winder Relationship Specialty Start Date End Date Tang Ling MD [address] [address] PCP - General General Internal Medicine 07/04/16 documented as of this encounter
--- OUTSIDE RECORDS SUMMARY | 2024-05-02 14:23 | XMS_ITS | Encounter Summary ---
Author Organization [facility] [place] [address] Care Team Providers Care Yarn Dumper Name Role Phone Tang Ling MD Primary Care Provider [phone] Reason for Visit * Reason Onset Date Comments Prior Authorization 05/28/2022 Encounter Details Date Type Department Care Team (Late st Contact Info) Description 05/28/2022 Telephone [place] [address] Lucille Lala Prior Authorization Social History Tobacco Use Types Packs/Day Years Used Date Smoking Tobacco: Never Smokeless Tobacco: Never Alcohol Use Standard Drinks/Week Comments No 0 (1 standard drink = 0.6 oz pur e alcohol) social Sex and Gender Information Value Date Recorded Sex Assigned at Not on file Gender Identity Not on file Sexual Orientation Not on file documented as of this encounter Miscellaneous Notes * Telephone Encounter - Lucille Lala - 05/28/2022 11:00 AM EDT Images from the original note were not included. Medication Prior Authorization Alivia Medication name/dose/directions: Freestyle Natalie Truro Rationale for request: Type II DM (E11.65) Health plan: [place] (Fax) [place]: [phone] Authorizing education courses sales representative name: Bia Sent to health plan on: 05/28/22 Health plan decision: Quantity approved: Authorization number: [id number] Start date: End date: documented in this encounter Plan of Treatment Upcoming Encounters Date Type Department Care Team (Late st Contact Info) Description 07/06/2024 1:30 PM EST Office Visit Cardiology at [address] [address] Delta Reyes MD [facility] [place] [address] documented as of this encounter Visit Diagnoses Not on filedocumented in this encounter Care Teams Yarn Dumper Relationship Specialty Start Date End Date Tang Ling MD [address] [place] [phone] PCP - General General Internal Medicine 07/04/16 documented as of this encounter
--- OUTSIDE RECORDS SUMMARY | 2024-05-02 14:23 | XMS_ITS | Encounter Summary ---
Author Organization [facility] [place] [address] Care Team Providers Care Medical Imaging Specialist Name Role Phone Tang Ling MD Primary Care Provider Reason for Referral * Diagnostic Test (Routine) - Closed Specialty Diagnoses / Procedures Referred By Vanesa torres Referred To Contact Radiology Diagnoses ASCVD (arteriosclerotic cardiovascular disease) Procedures NM Pharmacologic Stress and Rest Myocardial Perfusion Jeniffer Ventura APRN [facility] [place] [address] [place] [address] Referral ID Status Reason Start Date Expiration Date V isits Requested Visits Authorized [id number] Closed Specialty Service Requested 09/24/2020 03/24/2022 1 1 Reason for Visit * Diagnostic Test (Routine) - Closed Specialty Diagnoses / Procedures Referred By Vanesa torres Referred To Contact Radiology Diagnoses ASCVD (arteriosclerotic cardiovascular disease) Procedures NM Pharmacologic Stress and Rest Myocardial Perfusion Jeniffer Ventura APRN [facility] [place] [address] [place] [address] Referral ID Status Reason Start Date Expiration Date V isits Requested Visits Authorized [id number] Closed Specialty Service Requested 09/24/2020 03/24/2022 1 1 Encounter Details Date Type Department Care Team (Latest Contact Info) Description 10/08/2020 9:42 AM EST - 10/08/2020 9:44 AM EST Hospital Encounter Nuclear Medicine at [facility] [place] [address] Jeniffer Ventura, SUPERVISOR DATA PROCESSING [facility] [place] [address] ASCVD (arteriosclerotic cardiovascular disease) Discharge Disposition: Home [...] unspecified vessel or lesion type, unspecified whether ho-chunk or transplanted heart,Chest pain, unspecified type Take [...] 1:30 PM EST Office Visit Cardiology at [address] [phone] Delta Reyes MD [facility] [place] [address] documented as of this encounter Procedures Procedure Name Priority Date/Time Associated Diagnosis Comments NM PHARMACOLOGIC STRESS AND REST MYOCARDIAL PERFUSION Routine 10/08/2020 11:40 AM EST ASCVD (arteriosclerotic cardiovascular disease) documented in this encounter Results * NM Pharmacologic Stress and Rest Myocardial Perfusion (10/08/2020 11:40 AM EST) Anatomical Region Laterality Modality Nuclear Medicine Impressions 10/08/2020 3:59 PM EST 1. ??No ischemia or scar. ?? 2. ??Left ventricular function is normal. I have personally reviewed the image(s) and the resident's interpretation and agree with the findings, Real Butterfield MD at 10/08/2020 3:59 PM Thank you for letting us participate in the care of this patient. For questions regarding this report, please contact the number below. ? Narrative 10/08/2020 3:59 PM EST EXAMINATION: NM PHARMACOLOGIC STRESS AND REST MYOCARDIAL PERFUSION CLINICAL HISTORY: s/p PCI LAD and D1 in 2016, atypical chest pain/symptoms, pre-op clearance TECHNIQUE: During rest, 7.7 mCi of technetium-99m sestamibi was administered intravenously. Approximately 20 minutes later, SPECT images of the heart were obtained with reconstruction in the short, vertical long and horizontal long axis. The patient then received regadenoson intravenously at a dose of 0.4 mg. 20 seconds later, 26.1 mCi of technetium-99m sestamibi was administered intravenously. Images of the heart were then again obtained with SPECT reconstruction. A low-dose CT scan was acquired for the purpose of attenuation correction COMPARISON: None FINDINGS: No fixed or reversible perfusion defects are present. Functional analysis: Myocardial function: There is normal wall thickening and wall motion. Left ventricular ejection fraction: 71% (normal greater than than 50%). INCIDENTAL CT FINDINGS: See separate report Procedure Note Real Butterfield MD - 10/08/2020 EXAMINATION: NM PHARMACOLOGIC STRESS AND REST MYOCARDIAL PERFUSION CLINICAL HISTORY: s/p PCI LAD and D1 in 2016, atypical chestpain/symptoms, pre-op clearance TECHNIQUE: During rest, 7.7 mCi of technetium-99m sestamibi wasadministered intravenously. Approximately 20 minutes later, SPECT images of the heartwere obtained with reconstruction in the short, vertical long and horizontallong axis. The patient then received regadenoson intravenously at a dose of 0.4 mg.20 seconds later, 26.1 mCi of technetium-99m sestamibi was administered intravenously. Images of the heart were then again obtained with SPECT reconstruction. A low-dose CT scan was acquired for the purpose of attenuationcorrection COMPARISON: None FINDINGS: No fixed or reversible perfusion defects are present. Functional analysis: Myocardial function: There is normal wall thickening and wall motion. Left ventricular ejection fraction: 71% (normal greater than than 50%). INCIDENTAL CT FINDINGS: See separate report IMPRESSION 1. No ischemia or scar. 2. Left ventricular function is normal. I have personally reviewed the image(s) and the resident's interpretationand agree with the findings, Real Butterfield MD at 10/08/2020 3:59 PM Thank you for letting us participate in the care of this patient. Forquestions regarding this report, please contact the number below. Jeniffer Torres Audrey SUPERVISOR DATA PROCESSING IMG NM ORDERABLES documented in this encounter Visit Diagnoses Diagnosis ASCVD (arteriosclerotic cardiovascular disease) Unspecified cardiovascular disease documented in this encounter Administered Medications Inactive Administered Medications - up to 3 most recent administrations Medication Order MAR Action Action Date Dose Rate Site technetium (Tc-99m) sestamibi injection 0-30 mCi 0-30 mCi, Intravenous, 2 TIMES DAILY PRN, 2 doses, Starting on Thu10/08/20 at 1038, Until Thu10/09/20 at 0436, Per Protocol, Radiology Contrast, Routine Given 10/08/2020 10:15 AM EST 7.7 mCi Right Arm documented in this encounter Care Teams Medical Imaging Specialist Relationship Specialty Start Date End Date Tang Ling MD [address] [place] [id number] PCP - General General Internal Medicine 07/04/16 documented as of this encounter
--- OUTSIDE RECORDS SUMMARY | 2024-05-02 14:23 | XMS_ITS | Encounter Summary ---
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 Tang Ling MD [address] [place] [address] [facility] [address] [place] [address] Referral ID Status Reason Start Date Expiration Date V isits Requested Visits Authorized [id number] Closed Consult, Test & Treat PCP Updated and/or Approved 02/20/2022 02/20/2023 6 6 Encounter Details Date Type Department Care Team (Late st Contact Info) Description 05/20/2022 10:00 AM EDT Office [place] [phone] Kev Bunch MD [facility] [place] [address] Type 2 diabetes mellitus with hyperglycemia, with long-term current use of insulin (Primary Dx) Social History Tobacco Use Types Packs/Day Years [...] Sign Reading Time Taken Comments Blood Pressure 137/57 05/20/2022 9:49 AM EDT Pulse 63 05/20/2022 9:49 AM EDT Temperature 36.3 ??C (97.4 ??F) 05/20/2022 9:49 AM ED T Respiratory Rate 16 05/20/2022 9:49 AM EDT Oxygen Saturation 97% 05/20/2022 9:49 AM EDT Inhaled Oxygen Concentration - - Weight 60.4 kg (133 lb 3.2 oz) 05/20/2022 9:49 A M EDT Height 157.5 cm (5' 2) 05/20/2022 9:49 AM EDT Body Mass Index 24.36 05/20/2022 9:49 AM EDT documented in this encounter Patient Instructions * Patient Instructions* Kev Bunch MD - 05/20/2022 10:00 AM EDT - Take Jardiance 10 mg daily Insulin Discharge Instructions Instructions for Toujeo Insulin (LONG ACTING) Inject Toujeo 45 units insulin every night. Check blood glucose (BG) before breakfast to adjust this dose Instructions for Mealtime Novolog (or Humalog) Insulin This is the rapid-acting insulin, used at mealtime to prevent a high BG after you eat. Check your BG before each meal. If your BG is 100 or higher, inject Novolog right before eating. If your BG is 80 - 100, inject Novolog right after eating. If your BG is lower than 80, or you have symptoms of a low BG, treat the low BG first, then eat your meal and take the Novolog after eating. 4. Inject 10 units of novolog by pen for breakfast, 10 units for lunch and 15 units for dinner (if you are eating less, decrease it by 2 units. If you are eating more, increase by 2 units) ADD the following dose if your blood glucose is over 140 at meal time based on an insulin sensitivity factor of 20 meaning 1 unit of insulin is estimated to decrease your BG by 20 points. Blood Sugar NOVOLOG DOSE 140-159 ADD 1 unit (0 unit at night) 160-179 ADD 2 units (0 unit at night) 180-199 ADD 3 units 200-219 ADD 4 units 220-239 ADD 5 units 240-259 ADD 6 units 260-279 ADD 7 units 280-299 ADD 8 units >300 ADD 9 units and call Doctor If you should forget to take your Novolog. If it is less than an hour since you ate your meal, take the calculated dose If more than an hour has passed since you ate, recheck blood glucose and dose accordingly. Try to get some extra exercise and drink a lot of water to help with the high blood sugar. Treatment of Low Blood Sugar (Hypoglycemia) If your BG is lower than 80, you are likely to feel shaky, sweaty and lightheaded. This is a signalthat your body needs more sugar. Quickly eat or drink a small serving of something sweet, such as: 4 ounces fruit juice or regular (not diet) soda 6 lifesavers small box of raisins 4 glucose tablets (~15 gm of glucose) If your BG is very low <50, you can double the amount above or take 30 gm of glucose gel/tablets. Sit and rest and you should feel better within a few minutes. Once you are feeling better, try to determine why your BG was so low. Common causes of hypoglycemia include skipping a meal, lots of exercise, too much insulin or any combination of these things. Understanding the cause my help you to avoid another low BG in the future. Call your doctor for blood sugars less than 80 or greater than 300 twice in one day to have your insulin doses adjusted. documented in this encounter Progress Notes * Kev Bunch MD - 05/20/2022 10:00 AM EDT Endocrine Outpatient Visit Date of Consultation: 05/20/2022 Consult Requested by: Tang Ling MD Reason for Consultation: Lou Mo is a 76 y.o. female with PMH significant for depression anxiety, CAD s/p stenting, left thyroid nodule s/p partial thyroidectomy, hypertension is referred to endocrine clinic for further management of T2DM Follow up on her thyroid nodule on the R with thyroid US via PCP, no significant growth. No low blood sugar at home. Inject Novolog 2-3 times a day depending on the meals. Diabetes History: Diagnosed with DM at the age of 40's Diabetes provider: Tang Ling MD Current home regimen: Toujeo 80-90 units nightly, NovoLog sliding scale 4-6 units 2-3 times a day CF 1: 12.5 Allergic to linagliptin, dulaglutide (migraine), metformin (diarrhea) BG Monitorin times a day, BS fasting 250-300, before lunch 150, before dinner 150 Most recent HgA1C on 11/21/2021 was 9.2 Typical Diet: 2-3 meals and 1-2 snacks a day Breakfast- egg sandwich Lunch- egg sandwich Supper- biggest meal, pasta, pizza Drink- water, powerade with sugar Typical exercise regimen: sedentary Trouble with hypoglycemia: no Hypoglycemia unawareness: no Family h/o DM: yes father has T2DM, son T2DM Injection site: arm and abdomen Recent admission with DKA: no Diabetes Complications Status: Eyes: yes DR (does not require treatment), cataract both eyes Kidneys: no Feet: no Sensory: no Autonomic: no Cardiac: yes CAD s/p stenting x2 Prevention: last eye exam: yes 01/2022 last microalbumin : last Cr: 1.0 on 08/09/2021 last lipid panel: Lab Results Component Value Date CHLPL 156 07/20/2017 HDL 40 07/20/2017 CHOLHDL 3.9 07/20/2017 TRIG 107 07/20/2017 LDLCHOL 95 07/20/2017 LDLDIRECT 100 (H) 06/11/2013 regular sales planning coordinator: no special shoes: no flu shot : yes pneumovax: yes ACEi: yes ASA: yes Statin: yes ROS: (-) for Constitutional: No recent weight change Endocrine: No increased thirst or urination Eyes: No recent vision change ENT: No dysphagia, dental issues Cardiovascular: No chest pain Respiratory: No wheezing , shortness of breath GI: No nausea, vomiting, diarrhea, constipation : No frequent urinary tract infections Neurological: No weakness or numbness Skin/Feet: No current diabetic foot ulcers/open area PMH Past Medical History: Diagnosis Date ??? Allergic state ??? Cataract ??? Diabetes mellitus 1996 Type 2 NIDDM, dx 1996 ??? Dyslipidemia ??? GERD (gastroesophageal reflux disease) ??? Hyperlipidemia ??? Hypertension ??? Thyroid disease thyroid nodule has been biopsied and is benign Current Medications: Scheduled Meds: Continuous Infusions: PRN Meds:. Allergy: Allergies Allergen Reactions ??? Hymenoptera Allergenic Extract Anaphylaxis ??? Trulicity [Dulaglutide] Other (See Comments) headaches ??? Cis Free Text Allergy Hymenoptera (Bee) Stings. ??? Ibuprofen HIVES Social history: Social History Tobacco Use ??? Smoking status: Never Smoker ??? Smokeless tobacco: Never Used Substance Use Topics ??? Alcohol use: No Comment: social ??? Drug use: No Family history: Family History Problem Relation Age of Onset ??? Coronary Artery Disease Mother ??? Macular Degeneration Mother ??? Cataracts Mother ??? Glaucoma Maternal Aunt ??? Macular Degeneration Maternal Aunt ??? Amblyopia Neg Hx ??? Strabismus Neg Hx ??? Retinal Detachment Neg Hx Vitals BP 137/57 (BP Location (NBP): Right arm, Patient Position: Sitting, BP Cuff Sizes: Large Adult (32-43 cm)) Pulse 63 Temp 36.3 ??C (97.4 ??F) (Temporal) Resp 16 Ht 157.5 cm (5' 2) Wt 60.4 kg (133 lb 3.2 oz) SpO2 97% BMI 24.36 kg/m?? Physical Exam: Gen: NAD, talking in clear sentences. Sitting comfortably. HEENT: EOMI, PERRL, neck supple, oral mucus membranes moist, no thyroid enlargement Heart: RRR, no murmurs. Radial pulses +2. Lungs: CTAB, breathing non-labored. No wheezes or rhonchi. Good aeration Abd: Soft, non-distended, non-tender x4 quadrants, +bs SKIN: No open areas or redness to both feet, no lipodystrophy Neuro: Moving all extremities. Grossly non-focal, intact vibration sense Right Foot: Monofilament testing: intact sensation Dorsalis pedis pulses are present on the right side Skin Integrity: Negative for ulcer, blister, skin breakdown, erythema, warmth, callus or dry skin. Left Foot: Monofilament testing: intact sensation Dorsalis pedis pulses are present on the left side. Skin Integrity: Negative for ulcer, blister, skin breakdown, erythema, warmth, callus or dry skin. Labs: 08/09/2021 BUN 15 creatinine 1.0 11/21/21 A1c 9.2 Assessment: A 76 y.o. years old female with PMH significant for T2DM (Last A1C of 9.2) is here for further management of T2DM Diabetes. Poorly controlled T2DM with complications (CAD and Retinopathy) Patient has poorly controlled BS in the morning which went up to 200-300. Dinner is her biggest meal but did not measure any blood sugar at bedtime. Her insulin dose is large in long-acting portion but small in boluses. We will decrease basal and add more bolus to meal. Also add Jardiance due to h/o CAD. Will recheck labs today. She is uptodate on eye exam. H/o L thyroid nodule s/p partial thyroidectomy, R thyroid nodule Follow up with PCP on R thyroid nodule. Recent US did not show significant growth per patient. Willobtain TFT today. Plan: - Decrease Toujeo to 45 units daily - Meal-associated Lispro 10 units for breakfast, 10 units for lunch and 15 units for dinner (if youare eating less, decrease it by 2 units. If you are eating more, increase by 2 units) - Lispro custom sliding scale for BG >140 (CF 1:20) - CGM freestyle cintia - A1C, TSH, lipid panel, urine microalbumin - Start Jardiance 10 mg daily - f/u in 3 months - A1C goal: 8% Patient is on Multiple Daily Injections: Diagnosis: Diabetes Mellitus type 2 on multiple daily insulin injections Patient performs SMBG at least 4x per day Patient administers 3 or more insulin injections per day Patient frequently adjusts meal time insulin doses Patient needs a therapeutic CGM I plan to see this pt soon and at least every 6 months following this initial prescription of the CGM to assess adherence to their CGM regimen and diabetes treatment plan. We have reviewed our plan outlined as above with the patient and patient verbalized understanding and is agreeable with this management. All questions were answered and most of the time was spent on counseling about pertinent medical conditions, medications adjustment including pros and cons of starting medication if indicated, the diagnostic and therapeutic decisions, and coordination of care. Thank you for allowing us to provide care for this patient. Case discussed with Dr. Baltazar Bunch MD PGY4, Endocrinology Fellow Pager #[phone] * Miki Ledesma MD - 05/20/2022 10:00 AM EDT Patient seen and evaluated with Dr. Bunch. I agree with her assessment and plan. She is currently on basal bolus insulin, but is over-basaled. Adjust doses as outlined in note and add Jardiance 10 mg daily. Miki Ledesma MD [employer] Endocrinology Section [facility] documented in this encounter Plan of Treatment Upcoming Encounters Date Type Department Care Team (Late st Contact Info) Description 07/06/2024 1:30 PM EST Office Visit Cardiology at [address] [phone] Delta Reyes MD [facility] [place] [address] documented as of this encounter Results * U Albumin/Cre Ratio (05/20/2022 11:27 AM EDT) Albumin / Creatinin Ratio, Urine 11 0 - 29 mcg/mg Cr [facility] Comment: Reference Ranges: <30 mcg/mg: [...] 2, 357? 362 Albumin, Urine 11.6 mg/L [facility] Creatinine, Urine 103 mg/dL [facility] Urine 05/20/2022 11:2 7 AM EDT 05/20/2022 11:57 AM EDT Narrative Resulting Agency Comment Spec In Lab Miki Ledesma MD URINE ORDERABLES [facility] [place] [address] * (ABNORMAL) Basic Metabolic Panel (non-fasting) (05/20/2022 11:20 AM EDT) Glucose 365(H) 65 - 199 mg/dL [facility] Comment:Diabetes: >=200 mg/d L plus symptoms Blood Urea Nitrogen 14 8 - 18 mg/dL [facility] Creatinine 0.99 0.70 - 1.20 mg/dL [facility] Sodium 138 135 - 145 mmol/L [facility] Potassium 4.1 3.5 - 5.0 mmol/L [facility] Comment: Please note: ??Patients with WBC >100,000 may have falsely elevated Potassium levels. ??For accurate Potassium quantification in these patients send serum separator tube (gold top) for subsequent determinations. ??Contact the Clinical Chemistry Laboratory if there are any questions. Chloride 103 98 - 107 mmol/L [facility] Carbon Dioxide 26 22 - 31 mmol/L [facility] Anion Gap 9 5 - 15 mmol/L [facility] Calcium 9.1 8.5 - 10.5 mg/dL [facility] Est Glomerular Filtration Rate 59(L) >=60 mL/min/1. 73 m?? [facility] Comment: This patient's estimated GFR [...] In Lab Miki Ledesma MD CHEMISTRY ORDERABLES [facility] [place] [address] * Lipid Panel (Reflex Direct LDL) (05/20/2022 11:20 AM EDT) Cholesterol, Total 234 mg/dL [facility] Comment: Lower Risk: <200 mg/dL Average Risk: 200-239 mg/dL Higher Risk: >iq=099 mg/dL Triglyceride 238 mg/dL [facility] Comment: Average Risk/Lower Risk: <150 mg/dL Borderline High Risk: 150-199 mg/dL High Risk: 200-499 mg/dL Very High Risk: >ex=953 mg/dL HDL Cholesterol 42 mg/dL [facility] Comment: Males: ?? Higher Risk: <40 mg/dL Females: ?? Higher Risk: <50 mg/dL LDL Cholesterol 144 mg/dL [facility] Comment: Lowest Risk: <100 mg/dL Lower Risk: 100-129 mg/dL Borderline High Risk: 130-159 mg/dL High Risk: 160-189 mg/dL Very High Risk: >jl=688 mg/dL Cholesterol/HDL Ratio 5.6 ratio [facility] Lipid Interpretation See Note [facility] Comment: Lipid management should be guided by a patient? s ASCVD risk, goals and preferences. ACC/AHA Guidelines recommend high intensity statin if clinical ASCVD or LDL greater than or equal to 190 mg/dL. http://[email or web address] [email or web address]/JGY-BMF-Vtpahacqh Adults aged 40-75 with LDL 70-189 mg/dL should have their 10 year ASCVD risk estimated with the ACC/AHA ASCVD risk wine fermenter http://tools.acc.org/LUECA-Gmir-Fklrjsxci/ Statin should be discussed if risk greater [...] In Lab Miki Ledesma MD CHEMISTRY ORDERABLES [facility] [place] [address] * (ABNORMAL) Hemoglobin A1c (05/20/2022 11:20 AM EDT) Hemoglobin A1c 8.9(H) 4.3 - 5.6 % [facility] Comment: Reference Range: 4.3 - [...] Mellitus, Diabetes Care 2013; 36: Suppl. 1, S67-74 Estimated Average Glucose See note mg/dL [facility] Comment: Estimated Average Glucose not [...] into estimated average glucose values. ??Diabetes Care 2008:31(8):8308-0125. Blood 05/20/2022 11:2 0 AM EDT 05/20/2022 11:38 AM EDT Narrative Resulting Agency Comment Spec In Lab Miki Ledesma MD CHEMISTRY ORDERABLES Performing Organization Address [facility] de Phone Number [facility] [place] [address] * TSH [place] (05/20/2022 11:20 AM EDT) Thyroid Stimulating Hormone 1.91 0.27 - 4.20 mcIU/mL [facility] Comment: Reference Interval (mcIU/mL): Females: ??First Trimester: 0.23-3.88 ??Second Trimester: 0.22-3.90 ??Third Trimester: 0.44-4.66 Blood 05/20/2022 11:2 0 AM EDT 05/20/2022 11:38 AM EDT Narrative Resulting Agency Comment Spec In Lab Miki Ledesma MD CHEMISTRY ORDERABLES Performing Organization Address [facility] Co de Phone Number [facility] [place] [address] documented in this encounter Visit Diagnoses Diagnosis Type 2 diabetes mellitus with hyperglycemia, with long-term current use of insulin- Primary documented in this encounter Care Teams Global [employer] Content Marketing Relationship Specialty Start Date End Date Tang Ling MD [address] [place] [phone] PCP - General General Internal Medicine 07/04/16 documented as of this encounter
--- OUTSIDE RECORDS SUMMARY | 2024-05-02 14:23 | XMS_ITS | Encounter Summary ---
Author Organization [facility] Address [facility] [place] [address] Care Team Providers Care Remelt Operator Name Role Phone Tang Ling MD Primary Care Provider [phone] Reason for Visit * Diagnostic Test (Routine) - Closed Specialty Diagnoses / Procedures Referred By Vanesa soto Referred To Contact Radiology Diagnoses ASCVD (arteriosclerotic cardiovascular disease) Procedures NM Pharmacologic Stress and Rest Myocardial Perfusion Jeniffer Ventura [facility] [place] [address] [place] [address] Referral ID Status Reason Start Date Expiration Date V isits Requested Visits Authorized [id number] Closed Specialty Service Requested 09/24/2020 03/24/2022 1 1 Encounter Details Date Type Department Care Team (Latest Contact Info) Description 10/08/2020 9:45 AM EST Hospital Encounter [place] [address] Jeniffer Ventura [facility] [place] [address] Discharge Disposition: Home Social History Tobacco Use [...] unspecified vessel or lesion type, unspecified whether [place] or transplanted heart,Chest pain, unspecified type Take [...] 1:30 PM EST Office Visit Cardiology at [address] [address] Delta Reyes MD [facility] [place] [address] documented as of this encounter Procedures Procedure [...] the number below. ? Electronically signed by: Real Butterfield MD, [facility] ([phone]), at 10/08/2020 3:59 PM Narrative 10/08/2020 3:59 PM EST EXAMINATION: NM [...] contact the number below. Electronically signed by: Real Butterfield MD, [facility]([phone]), at 10/08/2020 3:59 PM Jeniffer Ventura APRN IMG NM ORDERABLES documented in this encounter Visit Diagnoses Not on filedocumented in this encounter Care Teams Remelt Operator Relationship Specialty Start Date End Date Tang Ling MD [address] [place] [address] PCP - General General Internal Medicine 07/04/16 documented as of this encounter
--- OUTSIDE RECORDS SUMMARY | 2024-05-02 14:23 | XMS_ITS | Encounter Summary ---
Author Organization [facility] Address [facility] [place] [address] Care Team Providers Care Piano Mechanic Name Role Phone Tang Ling MD Primary Care Provider [phone] Encounter Details Date Type Department Care Team (Latest Contact Info) Description 09/21/2023 Travel Social History Tobacco Use Types Packs/Day [...] 1:30 PM EST Office Visit Cardiology at [address] [address] Delta Reyes MD [facility] [address] documented as of this encounter Visit Diagnoses Not on filedocumented in this encounter Care Teams Piano Mechanic Relationship Specialty Start Date End Date Tang Ling MD [address] [address] PCP - General General Internal Medicine 07/04/16 documented as of this encounter
--- OUTSIDE RECORDS SUMMARY | 2024-05-02 14:23 | XMS_ITS | Encounter Summary ---
Author Organization [facility] Address [facility] [place] [address] Care Team Providers Care Disaster Recovery Manager Name Role Phone Tang Ling MD Primary Care Provider [phone] Encounter Details Date Type Department Care Team (Latest Contact Info) Description 10/08/2020 9:46 AM EST - 10/08/2020 11:59 PM EST Hospital Encounter Non-[place] [phone] Jeniffer Ventura, [facility] [place] [address] Discharge Disposition: Home Social History Tobacco Use [...] unspecified vessel or lesion type, unspecified whether [place] or transplanted heart,Chest pain, unspecified type Take [...] PM EST Office Visit Cardiology at [address] [address] Delta Reyes MD [facility] [place] [address] documented as of this encounter Procedures Procedure Name Priority Date/Time Associated Diagnosis Comments NUCLEAR PHARMACOLOGIC STRESS CARDIOLOGY Routine 10/08/2020 11:42 AM EST ASCVD (arteriosclerotic cardiovascular disease) documented in this encounter Results * Nuclear Pharmacologic Stress Cardiology (10/08/2020 11:42 AM EST) Anatomical Region Laterality Modality Other Jeniffer Ventura [employer] [employer] CARDIAC SERVICES O RDERABLES documented in this encounter Visit Diagnoses Not on filedocumented in this encounter Care Teams Disaster Recovery Manager Relationship Specialty Start Date End Date Tang Ling MD [address] [place] [address] PCP - General General Internal Medicine 07/04/16 documented as of this encounter
--- OUTSIDE RECORDS SUMMARY | 2024-05-02 14:23 | XMS_ITS | Encounter Summary ---
Author Organization [facility] [place] [address] Care Team Providers Care Communications Department Chairperson Name Role Phone Tang Ling MD Primary Care Provider [phone] Reason for Visit * Reason Onset Date Comments Results 10/15/2020 NST Encounter Details Date Type Department Care Team (Late st Contact Info) Description 10/15/2020 Telephone Cardiology at [address] [address] Janine Flowers RN Results (NST) Social History Tobacco Use Types Packs/Day Years [...] encounter Miscellaneous Notes * Telephone Encounter - Janine Flowers RN - 10/15/2020 8:59 AM EDT As per Griselda Calderon, could you call this patient and let her know that her nuclear stress test was normal and didn't show any evidence of ischemia or scar, therefore, she is cleared from a cardiac standpoint for her upcoming surgery. ??I am also going to place a note in her chart about this, could you please print and fax it to Dr. Saleem (orthopedic surgery) at [facility]? Clear connection established. Reviewed note from Griselda Ventura. Teach back method. Denies further questions or concerns. Voiced her appreciation of the call. Janine A. Kristie, RN 4A Cardiology documented in this encounter Plan of Treatment Upcoming Encounters Date Type Department Care Team (Late st Contact Info) Description 07/06/2024 1:30 PM EST Office Visit Cardiology at [address] [address] Delta Reyes MD [facility] [place] [address] documented as of this encounter Visit Diagnoses Not on filedocumented in this encounter Care Teams Communications Department Chairperson Relationship Specialty Start Date End Date Tang Ling MD [address] [place] [address] PCP - General General Internal Medicine 07/04/16 documented as of this encounter
--- OUTSIDE RECORDS SUMMARY | 2024-05-02 14:23 | XMS_ITS | Encounter Summary ---
Author Organization [facility] Address [facility] [place] [address] Care Team Providers Care Director Emergency Services Name Role Phone Tang Ling MD Primary Care Provider [phone] Reason for Visit * Diagnostic Test (Routine) - Closed Specialty Diagnoses / Procedures Referred By Vanesa soto Referred To Contact Radiology Diagnoses ASCVD (arteriosclerotic cardiovascular disease) Procedures NM Pharmacologic Stress and Rest Myocardial Perfusion Jeniffer Ventura [facility] [address] [place] [address] Referral ID Status Reason Start Date Expiration Date V isits Requested Visits Authorized [id number] Closed Specialty Service Requested 09/24/2020 03/24/2022 1 1 Encounter Details Date Type Department Care Team (Latest Contact Info) Description 10/08/2020 9:45 AM EST Hospital Encounter [place] [address] Jeniffer Ventura [facility] [place] [address] Discharge Disposition: Home Social History Tobacco Use [...] unspecified vessel or lesion type, unspecified whether [place] or transplanted heart,Chest pain, unspecified type Take [...] 1:30 PM EST Office Visit Cardiology at [address] [address] Delta Reyes MD [facility] [place] [address] documented as of this encounter Procedures Procedure Name Priority Date/Time Associated Diagnosis Comments NM PHARMACOLOGIC STRESS AND REST MYOCARDIAL PERFUSION Routine 10/08/2020 11:40 AM EST ASCVD (arteriosclerotic cardiovascular disease) documented in this encounter Visit Diagnoses Not on filedocumented in this encounter Administered Medications Inactive Administered Medications - up to 3 most recent administrations Medication Order MAR Action Action Date Dose Rate Site regadenoson (Lexiscan) injection 0.4 mg 0.4 mg, Intravenous, ONCE, 1 dose, On Thu10/08/20 at 1200, Radiology Contrast, Routine Given 10/08/2020 11:30 AM EST 0.4 mg technetium (Tc-99m) sestamibi injection 26.1 mCi 26.1 mCi, Intravenous, ONCE PRN, 1 dose, Starting on Thu10/08/20 at 1130, Until Thu10/08/20 at 1130, Per Protocol, Routine Given 10/08/2020 11:30 AM EST 26.1 mCi documented in this encounter Care Teams Director Emergency Services Relationship Specialty Start Date End Date Tang Ling MD [address] [place] [address] PCP - General General Internal Medicine 07/04/16 documented as of this encounter
--- OUTSIDE RECORDS SUMMARY | 2024-05-02 14:23 | XMS_ITS | Encounter Summary ---
Author Organization [facility] Address [facility] [place] [address] Care Team Providers Care Rn Angiography Name Role Phone Tang Ling MD Primary Care Provider [phone] Encounter Details Date Type Department Care Team (Late st Contact Info) Description 08/06/2021 Telephone Cardiology at [address] [address] Josefa Giron PA [facility] [place] [address] Social History Tobacco Use Types Packs/Day Years [...] encounter Miscellaneous Notes * Telephone Encounter - Josefa Jarrell PA - 08/06/2021 1:18 PM EST 08/06/2021 Lou Smith Chepe Initial Contact Date: 08/06/2021 Initial contact time: 1:18 PM Referring Provider: Dr. Up Patient Location: [facility] Past Medical History: ASCVD s/p LAD and D1 PCI 2015, LHC 2017 with patent prior stents and 45% mid LAD lesion negative byiFR and FFR HTN HLD T2DM Hx of PE on Eliquis Presenting Symptoms per OSH: Lou Mo is a 76 year old female with the above history who presented with chest pain. Pain presented 1 week ago and has been constant. There does seem to be worsening with ambulation and improvement with rest. Pain is substernal with radiation to back. Associated with SOB. Received 1 SL NTG in ER. Currently chest pain free at rest in ER bed. On chart review from Jeniffer Ventura 10/2020: Ms. Mo is a pleasant 75 year-old female with history of coronary artery disease, status post PCI to LAD and D1 in 2016. In the past 2 years, she has had atypical symptoms, including intermittent chest pain, lightheadedness, diffuse whole body weakness, headache and has undergone extensive work-up through PCP. She has apparently had 84 ED visits in the past year for these symptoms. Cardiology work-up in 2018 and 2018 included cardiac catheterization with nonobstructive coronary artery disease, stress echo without evidence of ischemia, and echocardiogram with preserved ejection fraction andno segmental wall motion abnormalities. Reassuringly over the past 3 years she has had extensive cardiac evaluation without evidence of ischemia or new coronary artery stenoses. Vital Signs: afebrile, HR 60, BP 110/55, RR 17, O2 96% on RA Pertinent Diagnostic Findings: EKG: sinus bradycardia HR [address]-T wave changes Troponin high sensitivity <5 (ULN 40), second pending CBC and BMP WNL Chest CTA negative for PE or other process Past cardiac studies: NM Pharm Stress Test 10/2020 FINDINGS: No fixed or reversible perfusion defects are present. ?? Functional analysis: Myocardial function: There is normal wall thickening and wall motion. Left ventricular ejection fraction: 71% (normal greater than 50%). ?? IMPRESSION 1. No ischemia or scar. [...] See remainder of report for additional findings. [facility] 07/2018 Coronary Angiography: Dominance: Right Left Main Mild luminal irregularity. Left Anterior Descending There was a 45% calcified and eccentric single discrete stenosis of the mid segment of the left anterior descending artery (LAD). The mid 2 segment of the LAD was noted. The previously placed stent is patent. The proximal segment of the first diagonal branch (Diagonal 1) of the LAD was noted. The previously placed stent is patent. Left Circumflex Mild luminal irregularities. Right Coronary Artery Mild luminal irregularities. OSH Interventions: ASA 324mg NTG SL Assessment & Plan: Lou Mo is a 76 year old female with a history of ASCVD who presented with chest pain. Pain has both typical and atypical features (has been constant for 1 week). Troponin negative. EKG without acute ischemic changes. CTA chest negative for PE or other process. Of note, as documented above by my colleague, she has had extensive ER visits and workup for chest pain over the past 3 years, all of which have been reassuring. At this point, I suspect atypical chest pain, but need to rule out ACS. She was loaded with ASA. I recommended admitting to local hospital and trending troponin level and EKGs. Obtain limited TTE for LVEF and WMAs. Hold off on IV heparin, consider if chest pain presents at rest or troponin rises (patient is on Eliquis). Call back with TTE results or troponin trend if abnormal. Consider outpatient follow up if workup benign. The above recommendations were based on my discussion with Dr. Up; I have not personally interviewed or examined this patient. I encouraged Jeovanny to contact us if there is any change in symptoms, decision-making, or further need for guidance in management. Josefa Jarrell PA-C Cardiovascular Medicine Pager [phone] 08/06/2021 documented in this encounter Plan of Treatment Upcoming Encounters Date Type Department Care Team (Late st Contact Info) Description 07/06/2024 1:30 PM EST Office Visit Cardiology at [address] [address] Delta Reyes MD [facility] [place] [address] documented as of this encounter Visit Diagnoses Not on filedocumented in this encounter Care Teams Rn Angiography Relationship Specialty Start Date End Date Tang Ling MD [address] [place] [address] PCP - General General Internal Medicine 07/04/16 documented as of this encounter
--- OUTSIDE RECORDS SUMMARY | 2024-05-02 14:23 | XMS_ITS | Encounter Summary ---
[place] [address] Care Team Providers Care Log Cutter Name Role Phone Tang Ling MD Primary Care Provider [phone] Reason for Visit * Reason Onset Date Comments Prior Authorization 05/26/2022 Encounter Details Date Type Department Care Team (Late st Contact Info) Description 05/26/2022 [place] [address] Lucille Lala Prior Authorization Social [...] encounter Miscellaneous Notes * Telephone Encounter - Rufino Jimenez RN - 05/29/2022 10:44 AM EDT Called pt's daughter per pt' request to go over instructions above for the CGM order. Provided 3 contact numbers to start with. Ladonna verbalized understanding. Instructions for Ordering Continuous Glucose Monitor (CGM) You have Medicare Part B as your primary insurance. This means that you will need to get a Continuous Glucose Monitor through a Durable Medical Equipment (DME) supplier. Call one of the DME suppliers on the list below. Let the DME supplier know which continuous glucose monitor you're trying to order. Freestyle Natalie 2 or Dexcom G6. The DME supplier will fax your order to our office. Our fax number is [phone]. Our director digital, will help process your paperwork. Your provider will sign off on your prescription. Once your prescription is signed, we fax it back to your DME supplier. Your DME supplier will communicate with you, and let you know when they can ship your supplies. This process can take on average 2-6 weeks. Please be patient. Sometimes your provider may have to make changes to their documentation to process your CGM order. Once you receive your CGM device, if you need assistance getting started, call the Endocrinology Clinic to schedule an appointment with Casie Noyola RN, the natural resources extension educator. You will need to let the director digital know that you need help setting up your CGM device. Company Name Website Phone Fax [employer] www.P[employer] Networks [phone] [facility] www.One [employer] Bill [phone] [employer] www.Compufirst [phone] [employer] www.Fre[employer] [phone] Ext. 49252 [facility] [facility] www.[place] [phone] [facility] Supp[facility] www.diabetesPeach Payments [phone] [employer] www.POPAPP [phone] [facility] www.TriondHypemarks [phone] [employer] [facility] [employer] www.Sodbuster [phone] [facility] www.Poke'n Call [phone] Option # Reliable Respiratory reliablerespiratory.com/diabetes-management/ [phone] [employer] [facility] [employer] www.Axine Water Technologies [phone] [facility] N/A [phone] [facility] Medical Supply www.Braintech [phone] [facility] https://[place] NeurosciencesZhou Heiyaaultman hospitalScalable Display Technologies/ [phone] * Telephone Encounter - Lucille Lala - 05/28/2022 10:59 AM EDT Previous Medications Tried Medication: Novolog Medication: Tresiba Medication: Testing 4x daily * Telephone Encounter - Lucille Lala - 05/28/2022 10:58 AM EDT Medication Prior Authorization Miriamiamanny Medication name/dose/directions: Freestyle Natalie Sensors Rationale for request: Type II DM (E11.65) Health plan: [place] Medicaid (Fax) [place]: [phone] Authorizing customer counter representative name: Bia Sent to health plan on: 05/28/22 Health plan decision: Quantity approved: Authorization number: [id number] Start date: End date: * Telephone Encounter - Lucille Lala - 05/26/2022 7:50 AM EDT Images from the original note were not included. Received PA for natalie 2 sensors Will complete as soon as possible documented in this encounter Plan of Treatment Upcoming Encounters Date Type Department Care Team (Late st Contact Info) Description 07/06/2024 1:30 PM EST Office Visit Cardiology at [address] [phone] Delta Reyes MD [facility] [place] [address] documented as of this encounter Visit Diagnoses Not on filedocumented in this encounter Care Teams Log Cutter Relationship Specialty Start Date End Date Tang Ling MD [address] [place] [address] PCP - General General Internal Medicine 07/04/16 documented as of this encounter
--- OUTSIDE RECORDS SUMMARY | 2024-05-02 14:23 | XMS_ITS | Encounter Summary ---
Author Organization [facility] Address [facility] [address] Care Team Providers Care Preschool Assistant Director Name Role Phone Tang Ling MD Primary Care Provider Encounter Details Date Type Department Care Team (Late st Contact Info) Description 02/27/2023 Telephone [place] [address] Brittney Garcia Social History Tobacco Use Types Packs/Day Years [...] 1:30 PM EST Office Visit Cardiology at [address] [address] Delta Reyes MD [facility] [place] [address] documented as of this encounter Visit Diagnoses Not on filedocumented in this encounter Care Teams Preschool Assistant Director Relationship Specialty Start Date End Date Tang Ling MD [address] [place] [address] PCP - General General Internal Medicine 07/04/16 documented as of this encounter
--- OUTSIDE RECORDS SUMMARY | 2024-05-02 14:23 | XMS_ITS | Encounter Summary ---
Author Organization [facility] Address [facility] [place] [address] Care Team Providers Care Beater Tender Name Role Phone Tang Ling MD Primary Care Provider Encounter Details Date Type Department Care Team (Late st Contact Info) Description 08/06/2023 Orders [place] [phone] Shekhar Hughes PA [facility] [place] [address] Screening for cardiovascular condition; Coronary artery disease, unspecified vessel or lesion type, unspecified whether angina present, unspecified whether [place] or transplanted heart; ASCVD (arteriosclerotic cardiovascular disease) Social History Tobacco Use Types Packs/Day Years [...] 1:30 PM EST Office Visit Cardiology at [address] [address] Delta Reyes MD [facility] [place] [address] documented as of this encounter Results * Basic Metabolic Panel (non-fasting) (08/11/2023 10:34 AM EST) Glucose 186 65 - 199 mg/dL [facility] Comment:Diabetes: >=200 mg/d L plus symptoms Blood Urea Nitrogen 13 8 - 18 mg/dL [facility] Creatinine 0.88 0.70 - 1.20 mg/dL [facility] Sodium 143 135 - 145 mmol/L [facility] Potassium 3.8 3.5 - 5.0 mmol/L [facility] Comment: Please note: ??Patients with WBC >100,000 may have falsely elevated Potassium levels. ??For accurate Potassium quantification in these patients send serum separator tube (gold top) for subsequent determinations. ??Contact the Clinical Chemistry Laboratory if there are any questions. Chloride 106 98 - 107 mmol/L [facility] Carbon Dioxide 27 22 - 31 mmol/L [facility] Anion Gap 10 5 - 15 mmol/L [facility] Calcium 9.4 8.5 - 10.5 mg/dL [facility] Est Glomerular Filtration Rate 67 >=60 mL/min/1. 73 m?? [facility] Comment: This patient's estimated GFR [...] Resulting Agency Comment Spec In Lab Jamal Thurston MD CHEMISTRY ORDERABLES [facility] [place] [address] documented in this encounter Visit Diagnoses Diagnosis Screening for cardiovascular condition Screening for other and unspecified cardiovascular conditions Coronary artery disease, unspecified vessel or lesion type, unspecified whether angina present, unspecified whether [place] or transplanted heart ASCVD (arteriosclerotic cardiovascular disease) Unspecified cardiovascular disease documented in this encounter Care Teams Beater Tender Relationship Specialty Start Date End Date Tang Ling MD [address] [place] [address] PCP - General General Internal Medicine 07/04/16 documented as of this encounter
--- OUTSIDE RECORDS SUMMARY | 2024-05-02 14:23 | XMS_ITS | Encounter Summary ---
Author Organization [facility] [place] [address] Care Team Providers Care Dialysis Registered Nurse Name Role Phone Tang Ling MD Primary Care Provider [phone] Reason for Referral * Consultation (Routine) - Closed Specialty Diagnoses / Procedures Referred By Contac t Referred To Contact Cardiology Diagnoses Other chest pain Chest pain, longstanding coronary disease. [facility] diabetes. Last seen 09/21/23-Fred . Tang Ling MD [address] [place] [id number] [facility] [address] [place] [address] Referral ID Status Reason Start Date Expiration Date V isits Requested Visits Authorized [id number] Closed Consult, Test & Treat 01/14/2024 01/13/2025 1 1 Encounter Details Date Type Department Care Team (Late st Contact Info) Description 01/14/2024 Transcribe Orders eD Incoming Referrals [phone] Tang Ling MD [address] [place] [address] [phone] Other chest pain Social History Tobacco Use Types Packs/Day Years Used Date Smoking Tobacco: Never Smokeless Tobacco: Never Alcohol Use Standard Drinks/Week Comments No 0 (1 standard drink = 0.6 oz pur e alcohol) social [facility] Inpatient Questions Answer Date Recorded Does Anyone [...] 1:30 PM EST Office Visit Cardiology at [address] [phone] Delta Reyes MD [facility] [place] [address] Scheduled Referrals Name Type Priority Associated Diagnoses Order Schedule Referral to Cardiology Outpatient Referral Routine Other chest pain Ordered: 01/14/2024 documented as of this encounter Visit Diagnoses Diagnosis Other chest pain documented in this encounter Care Teams Dialysis Registered Nurse Relationship Specialty Start Date End Date Tang Ling MD [address] [place] [id number] PCP - General General Internal Medicine 07/04/16 documented as of this encounter
--- OUTSIDE RECORDS SUMMARY | 2024-05-02 14:23 | XMS_ITS | Encounter Summary ---
Author Organization [facility] Address [facility] [place] [address] Care Team Providers Care Rotary Drier Operator Name Role Phone Tang Ling MD Primary Care Provider [phone] Reason for Visit * Reason Onset Date Comments Appointment 03/04/2022 Encounter Details Date Type Department Care Team (Late st Contact Info) Description 03/04/2022 Telephone [place] [address] Vanita Byrd I Appointment Social History Tobacco Use Types Packs/Day Years [...] encounter Miscellaneous Notes * Telephone Encounter - Vanita Ambrose I - 03/04/2022 7:18 AM EDT Unable to contact patient to schedule from referral. Letter sent and referral closed documented in this encounter Plan of Treatment Upcoming Encounters Date Type Department Care Team (Late st Contact Info) Description 07/06/2024 1:30 PM EST Office Visit Cardiology at [address] [phone] Delta Reyes MD [facility] [place] [address] documented as of this encounter Visit Diagnoses Not on filedocumented in this encounter Care Teams Rotary Drier Operator Relationship Specialty Start Date End Date Tang Ling MD [address] [place] [id number] PCP - General General Internal Medicine 07/04/16 documented as of this encounter
--- OUTSIDE RECORDS SUMMARY | 2024-05-02 14:23 | XMS_ITS | Encounter Summary ---
Author Organization [facility] [place] [address] Care Team Providers Care Custodian Blood Bank Name Role Phone Tang Ling MD Primary Care Provider [phone] Reason for Visit * Auth/Cert (Routine) Specialty Diagnoses / Procedures Referred By Vanesa soto Referred To Contact Diagnoses Screening for cardiovascular condition [Z13.6] Coronary artery disease, unspecified vessel or lesion type, unspecified whether angina present, unspecified whether [place] or transplanted heart [I25.10] ASCVD (arteriosclerotic cardiovascular disease) [I25.10] Procedures PRG CATH PLMT LEFT HEART CATH & ARTS W/INJ & ANGIO IMG S&I CARDIAC CATHETERIZATION CORONARY ANGIOGRAPHY; W LHC,POSSIBLE PCI (WRVU 5.6) Jamal Vital MD [facility] [place] [address] [facility] Referral ID Status Reason Start Date Expiration Date Visits Re quested Visits Authorized [id number] 1 1 Encounter Details Date Type Department Care Team (Late st Contact Info) Description 08/11/2023 11:30 AM EST - 08/11/2023 12:30 PM EST [place] [address] Jamal Vital MD [facility] [place] [address] CARDIAC CATHETERIZATION Social History Tobacco Use Types Packs/Day Years [...] Sign Reading Time Taken Comments Blood Pressure 149/72 08/11/2023 12:16 PM EST Pulse 75 08/11/2023 12:16 PM EST Temperature 36.2 ??C (97.2 ??F) 08/11/2023 10:[address] Respiratory Rate 16 08/11/2023 12:16 PM EST Oxygen Saturation 98% 08/11/2023 12:16 PM EST Inhaled Oxygen Concentration - - [...] Lou Mo Patient Age: 78 y.o. Language: Yemeni Race: White Ethnicity: Not nor Admit date: [...] please contact your inpatient physician through the [facility] Physical Sciences Instructor . Issues afterhours and on weekends will be handled by the civil project engineer on-call. Discharge Diagnoses (Hospital Problems) and Secondary Diagnoses (Chronic Problems): Active Hospital Problems Diagnosis CAD (coronary artery disease) Resolved Hospital Problems No resolved problems to display. Active Non-Hospital Problems Diagnosis Stress at home S/P angioplasty with stent Chest pain CIS - Chest Pain CIS - DM CIS - Dyslipidemia CIS - GERD CIS - HTN Operations/Major Procedures: Patient Name: Lou Mo : [id number] MR#: [id number] Case Date: 08/11/2023 Physical Sciences Instructor: Surgeon(s) and Role: * Jamal Vital MD - Primary * Manuelito Arizmendi MD - Fellow - Assisting Preoperative diagnosis: Screening for cardiovascular condition [Z13.6] Coronary artery disease, unspecified vessel or lesion type, unspecified whether angina present, unspecified whether [place] or transplanted heart [I25.10] ASCVD (arteriosclerotic cardiovascular [...] Jamal Vital MD History of Presentation: Lou Mo is a 78 y.o. female referred for cardiac catheterization by Faustina Andrews APRN for evaluation of chest pain. Past medical history: ASCVD s/p LAD and D1 PCI 2015, LHC 2017 with patent prior stents and 45% mid LAD lesion negative byiFR and FFR HTN HLD T2DM Hx of PE on Eliquis Presented to the ED at [facility] in April for chest pain. [...] injection route. Refills: 0 FreeStyle Natalie 2 [place] Misc 1 each by Other route daily. [...] [address] tablet Commonly known as: Voltaren Smoking Status at Discharge: Social History Tobacco [...] Your Primary Care Provider: Tang Ling MD [phone] For questions regarding this document or issues relating to this hospitalization on the Medical Service, please contact your inpatient physician through the [facility] Physical Sciences Instructor . Issues afterhours and on weekends will [...] Your Primary Care Provider: Tang Ling MD [phone] For questions regarding this document or issues relating to this hospitalization on the Medical Service, please contact your inpatient physician through the [facility] Physical Sciences Instructor . Issues afterhours and on weekends will [...] mg by mouth daily. FreeStyle Natalie 2 [place] MiscIndications:diabe guido mellitus 1 each by Other route daily. Indications: diabetes mellitus 1 each 05/20/2022 FreeStyle Natalie 2 Sensor KitIndications:diabet es mellitus 1 each by Other route every 14 days. Indications: diabetes mellitus 2 kit 05/20/2022 metoprolol succinate (TOPROL-XL) 50 mg Tablet Sustained Release 24 hrIndications:Coronar y artery disease, angina presence unspecified, unspecified vessel or lesion type, unspecified whether [place] or transplanted heart,Chest pain, unspecified type Take [...] 13.8 PLATELET 115* 156 Chemistry: Recent Labs 08/12/23 0035 08/11/23 1034 NA 137 143 K 3.3* 3.8 CL 103 106 CO2 20* 27 BUN 17 13 CREATININE 0.91 0.88 GLUCOSE 265* 186 Recent Labs 08/12/23 0035 08/11/23 1034 CALCIUM 8.7 9.4 Endocrine: Recent Labs [...] on Eliquis Presented to the ED at [facility] in April for chest pain. [...] -will need new [place] at [place] Manuelito Arizmendi MD 08/11/2023 1:15 PM * [...] on Eliquis Presented to the ED at [facility] in April for chest pain. [...] and all discharge instructions. Both pt and pt'sdaughter verbalize understanding re: all discharge instructions. * [...] get much activity. Her daughter assists with splitter hand. Participation in an outpatient cardiac rehabilitation program at [facility] was discussed. Patient declines a referral [...] Procedure Note: Patient Name: Lou Mo : [id number] MR#: [id number] Case Date: 08/11/2023 Physical Sciences Instructor: Surgeon(s) and Role: * Jamal Vital MD - Primary * Manuelito Arizmendi MD - Fellow - Assisting Preoperative diagnosis: Screening for cardiovascular condition [Z13.6] Coronary artery disease, unspecified vessel or lesion type, unspecified whether angina present, unspecified whether [place] or transplanted heart [I25.10] ASCVD (arteriosclerotic cardiovascular [...] 1:30 PM EST Office Visit Cardiology at [address] [address] Delta Reyes MD [facility] [place] [address] documented as of this encounter Procedures Procedure [...] type, unspecified whether angina present, unspecified whether [place] or transplanted heart EKG 12-LEAD Routine 08/11/2023 1:28 PM EST ASCVD (arteriosclerotic cardiovascular disease) CARDIAC CATHETERIZATION Routine 08/11/2023 1:12 PM EST Screening for cardiovascular condition Coronary artery disease, unspecified vessel or lesion type, unspecified whether angina present, unspecified whether [place] or transplanted heart ASCVD (arteriosclerotic cardiovascular disease) POCT GLUCOSE Routine 08/11/2023 12:45 PM EST [facility] Left Heart Cath & Arts W/Inj & Angio Img S&I ([id number]) 08/11/2023 12:08 PM EST Screening for cardiovascular condition Coronary artery disease, unspecified vessel or lesion type, unspecified whether angina present, unspecified whether [place] or transplanted heart ASCVD (arteriosclerotic cardiovascular disease) EKG 12-LEAD Routine 08/11/2023 11:16 AM EST Screening for cardiovascular condition Coronary artery disease, unspecified vessel or lesion type, unspecified whether angina present, unspecified whether [place] or transplanted heart ASCVD (arteriosclerotic cardiovascular disease) POCT GLUCOSE Routine 08/11/2023 10:59 AM EST HEMOGRAM Routine 08/11/2023 10:34 AM EST Screening for cardiovascular condition Coronary artery disease, unspecified vessel or lesion type, unspecified whether angina present, unspecified whether [place] or transplanted heart ASCVD (arteriosclerotic cardiovascular disease) DIFFERENTIAL, AUTOMATED Routine 08/11/2023 10:34 AM EST Screening for cardiovascular condition Coronary artery disease, unspecified vessel or lesion type, unspecified whether angina present, unspecified whether [place] or transplanted heart ASCVD (arteriosclerotic cardiovascular disease) CBC (WITH DIFF) Routine 08/11/2023 10:34 AM EST Screening for cardiovascular condition Coronary artery disease, unspecified vessel or lesion type, unspecified whether angina present, unspecified whether [place] or transplanted heart ASCVD (arteriosclerotic cardiovascular disease) BASIC METABOLIC PANEL Routine 08/11/2023 10:34 AM EST Screening for cardiovascular condition Coronary artery disease, unspecified vessel or lesion type, unspecified whether angina present, unspecified whether [place] or transplanted heart ASCVD (arteriosclerotic cardiovascular disease) [...] who have questions please contact the health live in caregiver that requested your imaging first. ? Electronically signed by: Sallie Dick MD, [facility] ([phone]), at 08/12/2023 5:44 PM Narrative 08/12/2023 5:44 [...] patients who have questions please contactthe health live in caregiver that requested your imaging first. Electronically signed by: Sallie Dick MD, [facility] ([phone]), at 08/12/2023 5:44 PM Jamal Vital MD IMG DX ORDERABLES * (ABNORMAL) Urinalysis Microscopic Exam (08/12/2023 8:00 AM EST) RBC, Urine 1 0 - 4 /HPF [facility] WBC, Urine 7(H) 0 - 5 /HPF [facility] Bacteria, Urine Occasional (A) None /HPF [facility] Squamous Epithelial Cells Raw Data, Urine 5(H) <=4 /HPF [facility] Hyaline Casts, Urine 12(H) 0 - 2 /LPF [facility] Urine 08/12/2023 8:00 AM EST 08/12/2023 8:07 AM EST Narrative Resulting Agency Comment Spec In Lab Manuelito Arizmendi MD URINE ORDERABLES [facility] [place] [address] * (ABNORMAL) Urinalysis with reflex Culture (08/12/2023 8:00 AM EST) Glucose, Urine Dipstick Negative Negative mg/dL [facility] Protein, Urine Dipstick Trace(A) Negative mg/dL [facility] Bilirubin, Urine Dipstick Negative Negative mg/dL [facility] Comment: Clinical correlation required for positive Urine Bilirubin results as false positive may occur with some drugs and drug related products. If a false positive is suspected a serum total bilirubin should be considered if clinically indicated. Urobilinogen, Urine Dipstick Normal Normal mg/dL [facility] pH, Urn (dipstick) 5.0 5.0 - 8.0 [facility] Blood, Urine Dipstick Trace(A) Negative mg/dL [facility] Ketone, Urine Dipstick Trace(A) Negative mg/dL [facility] Nitrite, Urine Dipstick Negative Negative [facility] Leukocytes, Urine Dipstick Trace(A) Negative mcL [facility] Appearance, Urine Dipstick Cloudy(A) Clear [facility] Specific [place] Urine Automated >=1.030(A) 1.005 - 1.030 [facility] Color, Urine Dipstick Dark Yellow Yellow [facility] Reflex to Culture No [facility] Urine 08/12/2023 8:00 AM EST 08/12/2023 8:07 AM EST Narrative Resulting Agency Comment Spec In Lab Jamal Vital MD URINE ORDERABLES Performing Organization Address City/[facility] [address]/ZIP Co de Phone Number [place] [address] * (ABNORMAL) POCT Glucose (08/12/2023 6:56 AM EST) Glucose, POC 255(H) 65 - 199 mg/dL [facility] Comment: Supplemental ranges: <140 mg/dL before meals <180 mg/dL all other times of the day Blood 08/12/2023 6:56 AM EST 08/12/2023 6:56 AM EST Jamal Vital MD POINT OF CARE TEST O RDERABLES Performing Organization Address City/[facility] [address]/ZIP Co de Phone Number [facility] [address] * (ABNORMAL) Differential, Automated (08/12/2023 12:35 AM EST) Neutrophil % 93.1 % [facility] Neutrophil Absolute 14.62(H) 1.70 - 6.10 x10(3)/mc L [facility] Lymph % 4.1 % [facility] Lymphocytes Abs 0.6(L) 0.9 - 3.2 x10(3)/mc L [facility] Monocyte % 2.1 % [facility] Monocyte Abs 0.3 0.3 - 0.9 x10(3)/mc L [facility] Eos % 0.0 % [facility] Eosinophils Abs 0.0 0.0 - 0.4 x10(3)/mc L [facility] Basophil % 0.3 % [facility] Baso Absolute 0.0 0.0 - 0.1 x10(3)/mc L [facility] Immature Gran % 0.40 % [facility] Comment: Immature granulocytes(IG's)percentage and absolute count will include metamyelocytes, myelocytes, and promyelocytes. Blood smears from CBCs yielding IG's will be scanned manually for concordance. If this scan disagrees with the automated IG or if promyelocytes are noted, a manual differential will be performed. Immature Gran Absolute 0.07(H) 0.00 - 0.04 x10(3)/mc L [facility] Blood 08/12/2023 12:3 5 AM EST 08/12/2023 12:53 AM EST Narrative Resulting Agency Comment Spec In Lab Manuelito Arizmendi MD HEMATOLOGY ORDERABLE S [facility] [address] * (ABNORMAL) Hemogram (08/12/2023 12:35 AM EST) White Blood Cell 15.7(H) 4.0 - 9.5 x10(3)/mc L [facility] Red Blood Cell 4.07 4.00 - 5.21 x10(6)/mc L [facility] Hemoglobin 13.0 11.7 - 15.5 g/dL [facility] Hematocrit 36.2 35.7 - 45.8 % [facility] Mean Cell Volume 88.9 82.6 - 94.4 fL [facility] Mean Cell Hemoglobin 31.9 27.1 - 32.0 pg [facility] Mean Cell Hemoglobin Concentration 35.9(H) 31.7 - 35.0 g/dL [facility] Platelet 115(L) 145 - 357 x10(3)/mc L [facility] RDW Standard Deviation 41.2 37.0 - 46.0 fL [facility] RDW coefficient of variation 12.6 11.5 - 14.1 % [facility] Mean Platelet Volume 9.7 7.6 - 12.9 fL [facility] NRBC% auto 0.0 % [facility] NRBC Absolute 0.000 0.000 - 0.000 x10(3)/mc L [facility] Blood 08/12/2023 12:3 5 AM EST 08/12/2023 12:53 AM EST Narrative Resulting Agency Comment Spec In Lab Manuelito Arizmendi MD HEMATOLOGY ORDERABLE S Performing Organization Address City/[facility] [address]/[facility] Co de Phone Number [place] [address] * TSH [place] (08/12/2023 12:35 AM EST) Thyroid Stimulating Hormone 1.41 0.27 - 4.20 mcIU/mL [facility] Comment: Reference Interval (mcIU/mL): Females: ??First Trimester: 0.23-3.88 ??Second Trimester: 0.22-3.90 ??Third Trimester: 0.44-4.66 Blood 08/12/2023 12:3 5 AM EST 08/12/2023 12:53 AM EST Narrative Resulting Agency Comment Spec In Lab Jamal Vital MD CHEMISTRY ORDERABLES Performing Organization Address City/[facility] [address]/[facility] Co de Phone Number [place] [address] * (ABNORMAL) Basic Metabolic Panel (non-fasting) (08/12/2023 12:35 AM EST) Glucose 265(H) 65 - 199 mg/dL [facility] Comment:Diabetes: >=200 mg/d L plus symptoms Blood Urea Nitrogen 17 8 - 18 mg/dL [facility] Creatinine 0.91 0.70 - 1.20 mg/dL [facility] Sodium 137 135 - 145 mmol/L [facility] Potassium 3.3(L) 3.5 - 5.0 mmol/L [facility] Comment: Please note: ??Patients with WBC >100,000 may have falsely elevated Potassium levels. ??For accurate Potassium quantification in these patients send serum separator tube (gold top) for subsequent determinations. ??Contact the Clinical Chemistry Laboratory if there are any questions. Chloride 103 98 - 107 mmol/L [facility] Carbon Dioxide 20(L) 22 - 31 mmol/L [facility] Anion Gap 14 5 - 15 mmol/L [facility] Calcium 8.7 8.5 - 10.5 mg/dL [facility] Est Glomerular Filtration Rate 65 >=60 mL/min/1. 73 m?? [facility] Comment: This patient's estimated GFR was [...] In Lab Jamal Vital MD CHEMISTRY ORDERABLES [facility] [place] [address] * POCT Glucose (08/11/2023 9:16 PM EST) Glucose, POC 155 65 - 199 mg/dL [facility] Comment: Supplemental ranges: <140 mg/dL before meals <180 mg/dL all other times of the day Blood 08/11/2023 9:16 PM EST 08/11/2023 9:16 PM EST Jamal Vital MD POINT OF CARE TEST O RDERABLES Performing Organization Address City/[facility] [address]/[facility] [place] [address] * EKG 12 Lead (08/11/2023 3:10 PM EST) Ventricular rate 79 BPM MUSE SYSTEM Atrial Rate 79 BPM MUSE SYSTEM P-R Interval 216 ms MUSE SYSTEM QRS Duration 78 ms MUSE SYSTEM Q-T Interval 382 ms MUSE SYSTEM QTC Calculated (Bezet) 438 ms MUSE SYSTEM Calculated P Lutz 47 degrees MUSE SYSTEM Calculated R Lutz -31 degrees MUSE SYSTEM Calculated T Lutz 18 degrees MUSE SYSTEM INTERPRETATION Sinus rhythm with 1st degree A-V block Left axis deviation Abnormal ECG When compared with ECG of 11-AUG-2023 13:28, Nonspecific T wave abnormality, improved in Anterior leads Confirmed by Gabrielle DIAZ, Catrachito ([id number]) on 08/12/2023 7:16:33 PM MUSE SYSTEM 08/11/2023 3:10 PM EST 08/12/2023 7:16 PM EST Jamal Vital MD ECG ORDERABLES Performing Organization Address City/[facility] [address]/[facility] Co de Phone Number MUSE SYSTEM * EKG 12 Lead (08/11/2023 1:28 PM EST) Ventricular rate 70 BPM MUSE SYSTEM Atrial Rate 70 BPM MUSE SYSTEM P-R Interval 202 ms MUSE SYSTEM QRS Duration 80 ms MUSE SYSTEM Q-T Interval 386 ms MUSE SYSTEM QTC Calculated (Bezet) 416 ms MUSE SYSTEM Calculated P Lutz 30 degrees MUSE SYSTEM Calculated R Lutz -26 degrees MUSE SYSTEM Calculated T Lutz 3 degrees MUSE SYSTEM INTERPRETATION Normal sinus rhythm Nonspecific T wave abnormality Abnormal ECG When compared with ECG of 11-AUG-2023 11:16, No significant change was found Confirmed by MD Lyndon, Cassie ([id number]) on 08/11/2023 9:02:57 PM MUSE SYSTEM 08/11/2023 1:28 PM EST 08/11/2023 9:02 PM EST Jamal Vital MD ECG ORDERABLES MUSE SYSTEM * CARDIAC CATHETERIZATION (08/11/2023 1:12 PM EST) Anatomical Region Laterality Modality Other Narrative 08/12/2023 2:27 PM EST ?[facility] ? Cardiac Catheterization/Intervention Report ? Patient Name: Lou Mo. ? Procedure Date: 08/11/2023 ? A #: [id number] ? Primary Physician: Jamal Vital ? Case #: [id number] ? File Name: [id number] ? Catheterization Order Number: [id number] ? [facility] ? Final Report [place], [place] ? Patient Name: ? Lou Mo ? ID#: ?[id number] ? : ?1945 ? Procedure Date: ? August 11, 2023 ?Case #: ? [id number] ? Room: ? 2 ? Case Physician: ? Jamal Vital, M.D. ?Start: ?12:24 ?Fellow: ? Manuelito Ugo, M.D. ?Admission: ??08/11/2023 ? Discharge: ??08/12/2023 ? [...] procedure was Elective. 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 Chest pain symptom [...] ? A premounted 3.00 x 22 mm [place] Jim Hogg (NIESHA) was deployed ? with a maximum [...] guide. ??A premounted 2.00 x 12 mm [place] Jim [place]ogg (NIESHA) was ? deployed with a maximum inflation pressure of 25 atmospheres. ? Another stent insertion was accomplished through a 6 Fr. EBU ? 3.5 guide. ??A premounted 2.00 x 08 mm Sergey Jim Hogg (NIESHA) was ? deployed with a maximum [...] may require ?modification of this regimen. Consult [facility] Interventional Cardiology for ?questions. ? Conclusions: ?* [...] Procedure Note Jamal Vital MD - 09/10/2023 [facility] Cardiac Catheterization/Intervention Report Patient Name: Lou Mo Procedure Date: 08/11/2023 A #: [id number] Primary Physician: Jamal Vital Case #: [id number] File Name: [id number] Catheterization Order Number: [id number] [facility] FinalReport [place], [place] Patient Name: Lou Mo ID#:[id number] :1945 Procedure Date: August 11, 2023 Case [...] was designated as ASA Class II. The [facility] clinical frailtyscale is 5: Mildly Frail. Diagnostic [...] diagnostic procedure was Elective. 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 Chest pain symptomassessment [...] segment of the LAD had a long gcbfdwrez48% stenosis. There also was a 70% single [...] priority for the procedure was Elective. [facility] Stable angina. [...] The lesion was predilated with a 2.50mm [id number] MM balloon with a maximum inflation pressure of 18atmospheres. A premounted 3.00 x 22 mm [place] Jim [place]ogg (NIESHA) wasdeployed with a maximum inflation pressure [...] A premounted 2.00 x 12 mm Sergey Jim Hogg (NIESHA) was deployed with a maximum inflation pressure of 25atmospheres. Another stent insertion was accomplished through a 6 Fr.EBU 3.5 guide. A premounted 2.00 x 08 mm Sergey Jim Hogg (NIESHA)was deployed with a maximum inflation pressure [...] situation mayrequire modification of this regimen. Consult [facility] Interventional Cardiologyfor questions. Conclusions: * One vessel [...] * POCT Glucose (08/11/2023 12:45 PM EST) [facility] Glucose, POC 133 65 - 199 mg/dL [facility] Comment: Supplemental ranges: <140 mg/dL before meals <180 mg/dL all other times of the day Blood 08/11/2023 12:4 5 PM EST 08/11/2023 12:45 PM EST Jamal Vital MD POINT OF CARE TEST O RDERABLES [facility] [address] * EKG 12 Lead (08/11/2023 11:16 AM EST) Pathologist [facility] Ventricular rate 80 BPM MUSE SYSTEM Atrial Rate 80 BPM MUSE SYSTEM P-R Interval 206 ms MUSE SYSTEM QRS Duration 70 ms MUSE SYSTEM Q-T Interval 356 ms MUSE SYSTEM QTC Calculated (Bezet) 410 ms MUSE SYSTEM Calculated P Lutz 13 degrees MUSE SYSTEM Calculated R Lutz -23 degrees MUSE SYSTEM Calculated T Lutz 20 degrees MUSE SYSTEM INTERPRETATION Normal sinus rhythm Normal ECG When compared with ECG of 24-SEP-2020 09:30, No significant change was found I personally reviewed the tracing and edited the fellows interpretation Confirmed by fellow MD Marina, Marci ([id number]) on 08/12/2023 7:33:02 AM Confirmed by Catrachito Anthony MD ([id number]) on 08/12/2023 6:36:00 PM MUSE SYSTEM 08/11/2023 11:1 6 AM EST 08/12/2023 6:36 PM EST Jamal Vital MD ECG ORDERABLES Performing Organization Address City/[facility] [address]/ZIP Co de Phone Number MUSE SYSTEM * POCT Glucose (08/11/2023 10:59 AM EST) Glucose, POC 167 65 - 199 mg/dL [facility] Comment: Supplemental ranges: <140 mg/dL before meals <180 mg/dL all other times of the day Blood 08/11/2023 10:5 9 AM EST 08/11/2023 10:59 AM EST Jamal Vital MD POINT OF CARE TEST O RDERABLES Performing Organization Address City/[facility] [address]/[facility] Co de Phone Number [place] [address] * Differential, Automated (08/11/2023 10:34 AM EST) Neutrophil % 65.7 % [facility] Neutrophil Absolute 4.83 1.70 - 6.10 x10(3)/[facility] Lymph % 25.4 % [facility] Lymphocytes Abs 1.9 0.9 - 3.2 x10(3)/[facility] Monocyte % 6.3 % [facility] Monocyte Abs 0.5 0.3 - 0.9 x10(3)/[facility] Eos % 1.5 % [facility] Eosinophils Abs 0.1 0.0 - 0.4 x10(3)/[facility] Basophil % 0.7 % [facility] Baso Absolute 0.0 0.0 - 0.1 x10(3)/[facility] Immature Gran % 0.40 % [facility] Comment: Immature granulocytes(IG's)percentage and absolute count will include metamyelocytes, myelocytes, and promyelocytes. Blood smears from CBCs yielding IG's will be scanned manually for concordance. If this scan disagrees with the automated IG or if promyelocytes are noted, a manual differential will be performed. Immature Gran Absolute 0.03 0.00 - 0.04 x10(3)/[facility] LABORATORY Blood 08/11/2023 10:3 4 AM EST 08/11/2023 10:48 AM EST Narrative Resulting Agency Comment Spec In Lab Shekhar BRIONES HEMATOLOGY ORDERABLE S Performing Organization Address City/[facility] [address]/[facility] Co de Phone Number [place] [address] * Hemogram (08/11/2023 10:34 AM EST) White Blood Cell 7.4 4.0 - 9.5 x10(3)/[facility] LABORATORY Red Blood Cell 4.42 4.00 - 5.21 x10(6)/[facility] LABORATORY Hemoglobin 13.8 11.7 - 15.5 g/dL [facility] Hematocrit 40.0 35.7 - 45.8 % [facility] Mean Cell Volume 90.5 82.6 - 94.4 fL [facility] Mean Cell Hemoglobin 31.2 27.1 - 32.0 pg [facility] Mean Cell Hemoglobin Concentration 34.5 31.7 - 35.0 g/dL [facility] Platelet 156 145 - 357 x10(3)/[facility] LABORATORY RDW Standard Deviation 41.9 37.0 - 46.0 fL [facility] RDW coefficient of variation 12.6 11.5 - 14.1 % [facility] Mean Platelet Volume 9.7 7.6 - 12.9 fL [facility] NRBC% auto 0.0 % [facility] LAB[facility]AT[facility] NRBC Absolute 0.000 0.000 - 0.000 x10(3)/[facility] LABORATORY Blood 08/11/2023 10:3 4 AM EST 08/11/2023 10:48 AM EST Narrative Resulting Agency Comment Spec In Lab Shekhar BRIONES HEMATOLOGY ORDERABLE S [facility] [address] * Basic Metabolic Panel (non-fasting) (08/11/2023 10:34 AM EST) Glucose 186 65 - 199 mg/dL [facility] Comment:Diabetes: >=200 mg/d L plus symptoms Blood Urea Nitrogen 13 8 - 18 mg/dL [facility] Creatinine 0.88 0.70 - 1.20 mg/dL [facility] Sodium 143 135 - 145 mmol/L [facility] Potassium 3.8 3.5 - 5.0 mmol/L [facility] Comment: Please note: ??Patients with WBC >100,000 may have falsely elevated Potassium levels. ??For accurate Potassium quantification in these patients send serum separator tube (gold top) for subsequent determinations. ??Contact the Clinical Chemistry Laboratory if there are any questions. Chloride 106 98 - 107 mmol/L [facility] Carbon Dioxide 27 22 - 31 mmol/L [facility] Anion Gap 10 5 - 15 mmol/L [facility] Calcium 9.4 8.5 - 10.5 mg/dL [facility] Est Glomerular Filtration Rate 67 >=60 mL/min/1. 73 m?? [facility] Comment: This patient's estimated GFR was [...] Vital MD CHEMISTRY ORDERABLES Performing Organization Address [facility] [address]/[facility] Co de Phone Number [place] [address] documented in this encounter Visit Diagnoses Diagnosis Screening for cardiovascular condition Screening for other and unspecified cardiovascular conditions Coronary artery disease, unspecified vessel or lesion type, unspecified whether angina present, unspecified whether [place] or transplanted heart ASCVD (arteriosclerotic cardiovascular disease) Unspecified cardiovascular disease Screening for cardiovascular condition Screening for other and unspecified cardiovascular conditions Coronary artery disease, unspecified vessel or lesion type, unspecified whether angina present, unspecified whether [place] or transplanted heart ASCVD (arteriosclerotic cardiovascular disease) Unspecified cardiovascular disease documented in this encounter Admitting Diagnoses Diagnosis CAD (coronary artery disease) Coronary atherosclerosis of unspecified type of vessel, [place] or graft documented in this encounter Administered Medications Inactive Administered Medications - up to 3 most recent administrations Medication Order MAR Action Action Date Dose Rate Site aspirin chewable tablet PRN, Starting on Thu08/11/23 at 1241, Until Thu08/11/23 at 1610, Intra-Operative (Intra-Procedure), Routine Given 08/11/2023 12:41 PM EST 81 mg aspirin EC tablet 81 mg 81 mg, [...] Given 08/12/2023 8:28 AM EST 75 mg clopidogreL (Plavix) tablet PRN, Starting on Thu08/11/23 at 1243, Until Thu08/11/23 at 1610, Intra-Operative (Intra-Procedure), Routine Given 08/11/2023 12:43 PM EST 150 mg dextrose 10% infusion 250 mL, at [...] dose. fentaNYL (pf) (50 mcg/mL) multi-dose injection PRN, Starting on Thu08/11/23 at 1224, Until Thu08/11/23 at 1610, Intra-Operative (Intra-Procedure), Routine Given 08/11/2023 12:24 PM EST 25 mcg glucagon (Glucagen) (1 mg/mL) injection solution 1 [...] grams.), Routine heparin (porcine) (1,000 units/mL) injection PRN, Starting on Thu08/11/23 at 1230, Until Thu08/11/23 at 1610, Intra-Operative (Intra-Procedure), Routine Given 08/11/2023 12:59 PM EST 1,500 Units Given 08/11/2023 12:41 PM EST 3,500 Units Given 08/11/2023 12:29 PM EST 4,000 Units insulin lispro (HumaLOG;Admelog) (100 unit/mL) subcutaneous injection [...] Given 08/12/2023 7:00 AM EST 3 Units iohexoL (Omnipaque) (350 mg/mL) solution PRN, Starting on Thu08/11/23 at 1310, Until Thu08/11/23 at 1610, Intra-Operative (Intra-Procedure), Routine Given 08/11/2023 1:10 PM EST 60 mLs midazolam (pf) (Versed) (1 mg/mL) multi-dose injection PRN, Starting on Thu08/11/23 at 1224, Until Thu08/11/23 at 1610, Intra-Operative (Intra-Procedure), Routine Given 08/11/2023 12:24 PM EST 1 mg nitroGLYcerin 100 mcg/mL intracoronary dilution PRN, Starting on Thu08/11/23 at 1227, Until Thu08/11/23 at 1610, Intra-Operative (Intra-Procedure), Routine Given 08/11/2023 1:00 PM EST 150 mcg Given 08/11/2023 12:27 PM EST 150 mcg ondansetron (pf) (Zofran) (2 mg/mL) injection 4 mg 4 mg, Intravenous, EVERY 8 HOURS PRN, Starting on Thu08/12/23 at 0012, Until Thu08/12/23 at 1258, Nausea Given 08/12/2023 12:23 AM EST 4 mg sodium chloride 0.9% infusion 200 mL/hr, Intravenous, CONTINUOUS, Starting on Thu08/11/23 at 1130, Until Thu08/11/23 at 1610, Cath (Day of Procedure) New Bag 08/11/2023 1:10 PM EST 200 mLs sodium chloride 0.9% infusion 100 mL/hr, Intravenous, CONTINUOUS, Starting on Thu08/11/23 at 1345, Until Thu08/11/23 at 1644, Recovery (Recovery-Hospital Unit) New Bag 08/11/2023 1:33 PM EST 100 mL/hr 100 mL /hr verapamiL (Isoptin) (2.5 mg/mL) injection PRN, Starting on Thu08/11/23 at 1227, Until Thu08/11/23 at 1610, Administer over 2 Minutes, Intra-Operative (Intra-Procedure) Given 08/11/2023 12:27 PM EST 2.5 mg documented in this encounter Active and Recently Administered Medications Times are shown in EST. Scheduled Medication Order 08/10/2023 08/11/2023 08/12/2023 aspirin EC tablet 81 mg 81 mg, Oral, DAILY, First dose on Thu08/12/23 at 0900, Until Discontinued, Routine 827 (Given - Provid er: Shelby Morfin RN) [...] Routine documented in this encounter Care Teams Custodian Blood Bank Relationship Specialty Start Date End Date Tang Ling MD [address] [place] [phone] PCP - General General Internal Medicine 07/04/16 documented as of this encounter
--- OUTSIDE RECORDS SUMMARY | 2024-05-02 14:23 | XMS_ITS | Encounter Summary ---
Author Organization [facility] Address [facility] [place] [address] Care Team Providers Care Liability Claims Manager Name Role Phone Tang Ling MD Primary Care Provider Reason for Visit * Consultation (Routine) - Closed Specialty Diagnoses / Procedures Referred By Contac t Referred To Contact Cardiology Diagnoses Other chest pain Chest pain, longstanding coronary disease. [facility] diabetes. Last seen 09/21/23-Fred . Tang Ling MD [address] [place] [id number] [facility] Cardiology [address] [place] [phone] Referral ID Status Reason Start Date Expiration Date V isits Requested Visits Authorized [id number] Closed Consult, Test & Treat 01/14/2024 01/13/2025 1 1 Encounter Details Date Type Department Care Team (Late st Contact Info) Description 04/26/2024 1:00 PM EDT Office Visit Cardiology at [address] [phone] Daniel Alberts MD [facility] [place] [address] Delta Reyes MD [facility] [address] Coronary artery disease, unspecified vessel or lesion type, unspecified whether angina present, unspecified whether apache or transplanted heart; Chronic diastolic heart failure Social History Tobacco Use Types Packs/Day Years [...] Pulse 82 04/26/2024 12:49 PM EDT Temperature - - Respiratory Rate - - Oxygen Saturation 97% 04/26/2024 12:49 PM EDT Inhaled Oxygen Concentration - - Weight 63.5 kg (140 lb) 04/26/2024 12:49 PM EDT Height 157.5 cm (5' 2) 04/26/2024 12:49 PM EDT Body Mass Index 25.61 04/26/2024 12:49 PM EDT documented in this encounter Progress Notes * Delta Reyes MD - 04/26/2024 1:00 PM EDT Images from the original note were not included. [facility] EFRAIN [place]dez [id number] Lou Mo [id number] 04/26/2024 REFERRING PROVIDER: Tang Ling HISTORY OF PRESENT ILLNESS: Lou Mo is a 78 y.o. female with a history of CAD s/p LAD andD1 PCI in 2015 as well as proximal LAD and distal LAD in 08/2023, HFpEF, HTN, HLD, T2DM, PE, and GERD who returns to clinic for follow- up. She was last seen by Jeniffer Ventura APRN in 09/2023. At that time, she followed up after PCI to the proximal and distal LAD in the setting of accelerating angina. She noted ongoing dyspnea on exertion for which workup for noncardiac etiologies was recommended. Since then, she had a Zio Patch completed for dizziness and palpitations. This showed 7 symptomatic runs of SVT, with max rate of 190 bpm and maximum duration of 14 beats. Her metoprolol dose was inc reased by her PCP in response to these results. She states that she was previously taking torsemide 40 mg daily for PATTY/HFpEF but developed lightheadedness, presyncopal episodes, and falls due to this. She currently takes torsemide as needed for PATTY/weight gain, but has not taken it in over a month. She does occasionally get palpitations, described as a racing heart leading to dyspnea. Prior to her most recent PCI in 08/2023, her dyspnea on exertion has improved. She did walk in today and felt dyspneic. She gets occasional chest heaviness with exertion but also sometimes at rest. It is described as left-sided. She never gets nauseous with it. She checks her BP once to twice weekly at home. It is typically >130/80. Social History: No tobacco use ever. No EtOH. No recreational drugs. 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 Family History: Mother with CAD s/p CABG. Father with MO in his 70s. PHYSICAL EXAMINATION: Vital Signs: BP 152/72 (BP Location (NBP): Left arm, Patient Position: Sitting, BP Cuff Sizes: Adult (25-34 cm)) Pulse 82 Ht 157.5 cm (5' 2) Wt 63.5 kg (140 lb) SpO2 97% BMI 25.61 kg/m?? General - No acute distress. Well-groomed/nourished. Speech is normal HEENT - EOMI. No scleral icterus. Noninjected. Moist membranes. Respiratory: Clear to auscultation bilaterally. Good effort/excursion. Cardiac - RRR, normal S1/S2, no audible murmur, gallop or rubs. No JVD. No PATTY. Abdomen - Soft, nontender/nondistended Extremities - Warm. No clubbing or cyanosis. Radial Pulses: 2+ B/L; DP Pulses: 2+ B/L Neuro - Limited exam. No deficits. DATA: CBC: Recent Labs 08/12/23 0035 08/11/23 1034 WBC 15.7* 7.4 HGB 13.0 13.8 PLATELET 115* 156 Chemistry: Recent Labs 08/12/23 0035 08/11/23 1034 NA 137 143 K 3.3* 3.8 CL 103 106 CO2 20* 27 BUN 17 13 CREATININE 0.91 0.88 GLUCOSE 265* 186 Recent Labs 08/12/23 0035 08/11/23 1034 CALCIUM 8.7 9.4 Endocrine: Recent Labs 08/12/23 0035 TSH 1.41 Lipids: Lipid Panel Lab Results Component Value Date CHLPL 234 05/20/2022 HDL 42 05/20/2022 CHOLHDL 5.6 05/20/2022 TRIG 238 05/20/2022 LDLCHOL 144 05/20/2022 LDLDIRECT 100 (H) 06/11/2013 Zio Patch, 01/14/2024: LHC/coronary angiogram, 08/11/2023: Coronary Angiography: Dominance: Right Left Main There [...] coronary artery (RCA). The RCA was large. Conclusions: * One vessel coronary artery disease (LAD) * Successful stent insertion of the proximal LAD lesion * Successful stent insertion of the distal LAD lesion * See Dual Antiplatelet (DAPT) Recommendations above TTE 10/19/2018: SUMMARY: 1. Technically limited study. 2. The [...] See remainder of report for additional findings. ASSESSMENT & PLAN: Lou Mo is a 78 y.o. female with a history of CAD s/p LAD and D1 PCI in 2015 as well as proximal LAD and distal LAD in 08/2023, HFpEF, SVT, HTN, HLD, T2DM, PE, and GERD who returns to clinic for follow-up. She has had multiple PCI for obstructive CAD causing exertional dyspnea. Her lipidswere last checked in 2021 and at that time LDL was >140. We discussed repeating a lipid panel and adding on Zetia if needed for LDL goal of <70. She will remain on ASA/Plavix per IC recommendations. As for her SVT, this seems to have become more quiescent since her metoprolol dose was increased. In light of ongoing HTN, will switch her metoprolol to Coreg and plan to titrate as able/needed for a goal BP of <130/80 and minimal if any symptomatic interference with SVT. She will continue to take her torsemide PRN for HFpEF symptoms; if able going forward, will consider addition of SGLT2i/MRA for GDMT. #CAD s/p LAD PCI #HFpEF #HTN #HLD -Stop metoprolol, start Coreg 12.5 mg BID -Continue rosuvastatin 40 mg daily -Update lipid panel; add Zetia if needed for LDL goal <70 -ASA/Plavix indefinitely per interventional cardiology recommendations -Continue PRN torsemide for fluid retention F/U in 3 months or sooner as needed. Thank you for allowing us to participate in the care of this patient. The patient was seen and discussed with attending physician Daniel Alberts MD. Delta Reyes MD Ham Stringer PGY5 documented in this encounter Plan of Treatment Upcoming Encounters Date Type Department Care Team (Late st Contact Info) Description 07/06/2024 1:30 PM EST Office Visit Cardiology at [address] [phone] Delta Reyes MD [facility] [place] [address] Scheduled Orders Name Type Priority Associated Diagnoses Orde r Schedule Lipid Panel (Reflex Direct LDL) Lab Routine Coronary artery disease, unspecified vessel or lesion type, unspecified whether angina present, unspecified whether apache or transplanted heart Expected: 04/26/2024, Expires: 04/26/2025 CRP, cardiac risk (HS CRP) Lab Routine Coronary artery disease, unspecified vessel or lesion type, unspecified whether angina present, unspecified whether apache or transplanted heart Expected: 04/26/2024, Expires: 10/26/2024 Lipoprotein A Lab Routine Coronary artery disease, unspecified vessel or lesion type, unspecified whether angina present, unspecified whether apache or transplanted heart Expected: 04/26/2024, Expires: 10/26/2024 pro-Brain Natriuretic Peptide Lab Routine Coronary artery disease, unspecified vessel or lesion type, unspecified whether angina present, unspecified whether apache or transplanted heart Chronic diastolic heart failure Expected: 04/26/2024, Expires: 10/26/2024 documented as of this encounter Visit Diagnoses Diagnosis Coronary artery disease, unspecified vessel or lesion type, unspecified whether angina present, unspecified whether apache or transplanted heart Chronic diastolic heart failure documented in this encounter Care Teams Liability Claims Manager Relationship Specialty Start Date End Date Tang Ling MD [address] [place] [phone] PCP - General General Internal Medicine 07/04/16 documented as of this encounter
--- OUTSIDE RECORDS SUMMARY | 2024-05-02 14:24 | XMS_ITS | Encounter Summary ---
Author Organization [facility] Address [facility] [place] [address] Care Team Providers Care Welder Gun Name Role Phone Tang Ling MD Primary Care Provider Reason for Referral * Diagnostic Test (Routine) - Closed Specialty Diagnoses / Procedures Referred By Contac t Referred To Contact Radiology Diagnoses Coronary artery disease, angina presence unspecified, unspecified vessel or lesion type, unspecified whether [place] or transplanted heart Chest pain, unspecified type Procedures CT Chest w Contrast MRI Chest wwo Contrast CT Chest w Contrast Gideon Rodriguez MD [facility] [place] [address] [facility] [place] [address] Referral ID Status Reason Start Date Expiration Date V isits Requested Visits Authorized [id number] Closed Specialty Service Requested 09/16/2018 09/16/2019 1 1 Reason for Visit * Diagnostic Test (Routine) - Closed Specialty Diagnoses / Procedures Referred By Contac t Referred To Contact Radiology Diagnoses Coronary artery disease, angina presence unspecified, unspecified vessel or lesion type, unspecified whether [place] or transplanted heart Chest pain, unspecified type Procedures CT Chest w Contrast MRI Chest wwo Contrast CT Chest w Contrast Gideon Rodriguez MD [facility] [place] [address] [facility] [place] [address] Referral ID Status Reason Start Date Expiration Date V isits Requested Visits Authorized [id number] Closed Specialty Service Requested 09/16/2018 09/16/2019 1 1 Encounter Details Date Type Department Care Team (Latest Contact Info) Description 10/19/2018 1:00 PM EDT - 10/19/2018 2:23 PM EDT Hospital Encounter CT Scan at [facility] [place] [address] Gideon Rodriguez MD [facility] [place] [address] Coronary artery disease, angina presence unspecified, unspecified vessel or lesion type, unspecified whether [place] or transplanted heart; Chest pain, unspecified type Discharge Disposition: Home Social History Tobacco Use [...] Sig Dispensed Refills Start Date End Date nitroGLYcerin (NITROSTAT) 0.4 mg Tablet, Sublingual Place 1 tablet under the tongue every 5 minutes as needed for Chest pain. 90 tablet 12 05/29/2016 aspirin 81 mg EC tablet Take 81 mg by mouth daily. rosuvastatin (CRESTOR) 40 mg tablet Take 40 mg by mouth daily. metoprolol succinate (TOPROL-XL) 50 mg Tablet Sustained Release 24 hrIndications:Coronary artery disease, angina presence unspecified, unspecified vessel or lesion type, unspecified whether [place] or transplanted heart,Chest pain, unspecified type Take 0.5 tablets by mouth daily. 90 tablet 3 09/16/2018 04/26/2024 omeprazole (PRILOSEC OTC) 20 mg Tablet, Delayed Release (E.C.) Take 1 tablet by mouth daily. 30 tablet 11 09/16/2018 09/16/2019 diclofenac (VOLTAREN) 50 mg Tablet, Delayed Release (E.C.) TAKE ONE TABLET BY MOUTH EVERY DAY 5 08/27/2018 08/12/2023 documented as of this encounter Plan of Treatment Upcoming Encounters Date Type Department Care Team (Late st Contact Info) Description 07/06/2024 1:30 PM EST Office Visit Cardiology at [address] [phone] Delta Reyes MD [facility] [place] [place] [address] documented as of this encounter Procedures Procedure Name Priority Date/Time Associated Diagnosis Comments CT CHEST W CONTRAST Routine 10/19/2018 2:19 PM EDT Coronary artery disease, angina presence unspecified, unspecified vessel or lesion type, unspecified whether [place] or transplanted heart Chest pain, unspecified type documented in this encounter Results * CT Chest w Contrast (10/19/2018 2:19 PM EDT) Anatomical Region Laterality Modality Chest Computed Tomogra phy Impressions 10/19/2018 5:16 PM EDT 1. ??No aortic dissection or aneurysm. 2. ??Evidence of coronary artery disease and stenting. 3. ??No pulmonary pathology. I have personally reviewed the image(s) and the residents interpretation and agree with the findings, Sallie Dick at 10/19/2018 5:16 PM Thank you for letting us participate in the care of this patient. For questions regarding this report, please contact the number below. ? Narrative 10/19/2018 5:16 PM EDT EXAMINATION: CT CHEST W CONTRAST CLINICAL HISTORY: Constant chest and back pain - evaluate for aortic dissection or other pathology TECHNIQUE: Noncontrast CT of the chest. Helical CT of the chest was performed following intravenous administration of 60ml of Omnipaque 350. Multiplanar reformatted images were generated. COMPARISON: CT chest dated 07/17/2017 FINDINGS: Lungs and airways: The lungs are normal. The central airways are patent. Pleura and pericardium: No pleural effusion. Minimal pleural-based calcifications at the posterior base of the left lower lobe are unchanged. No pericardial effusion. Heart and vasculature: Normal caliber of the thoracic aorta. No dissection or aneurysm. The heart is normal in size. Coronary artery atherosclerotic calcifications and findings consistent with prior stenting. Mediastinum and hilar structures: No lymphadenopathy. Single thyroid lobe on the right. Limited views of the upper abdomen are normal. Osseous structures: No focal lytic or sclerotic osseous lesion. The metallic anchor in the left humeral head is unchanged. Unchanged well-healed left lateral sixth rib fracture. Procedure Note Sallie Mejía MD - 10/19/2018 EXAMINATION: CT CHEST W CONTRAST CLINICAL HISTORY: Constant chest and back pain - evaluate for aorticdissection or other pathology TECHNIQUE: Noncontrast CT of the chest. Helical CT of the chest wasperformed following intravenous administration of 60ml of Omnipaque 350.Multiplanar reformatted images were generated. COMPARISON: CT chest dated 07/17/2017 FINDINGS: Lungs and airways: The lungs are normal. The central airways are patent. Pleura and pericardium: No pleural effusion. Minimal pleural-based calcifications at the posterior base of the left lower lobe are unchanged.No pericardial effusion. Heart and vasculature: Normal caliber of the thoracic aorta. No dissectionor aneurysm. The heart is normal in size. Coronary artery atherosclerotic calcifications and findings consistent with prior stenting. Mediastinum and hilar structures: No lymphadenopathy. Single thyroid lobeon the right. Limited views of the upper abdomen are normal. Osseous structures: No focal lytic or sclerotic osseous lesion. Themetallic anchor in the left humeral head is unchanged. Unchanged well-healed leftlateral sixth rib fracture. IMPRESSION 1. No aortic dissection or aneurysm. 2. Evidence of coronary artery disease and stenting. 3. No pulmonary pathology. I have personally reviewed the image(s) and the residents interpretationand agree with the findings, Sallie Dick at 10/19/2018 5:16 PM Thank you for letting us participate in the care of this patient. Forquestions regarding this report, please contact the number below. Gideon Rodriguez MD IMG CT ORDERABLES documented in this encounter Visit Diagnoses Diagnosis Coronary artery disease, angina presence unspecified, unspecified vessel or lesion type, unspecified whether [place] or transplanted heart Chest pain, unspecified type documented in this encounter Administered Medications Inactive Administered Medications - up to 3 most recent administrations Medication Order MAR Action Action Date Dose Rate Site iohexol (OMNIPAQUE) 350 mg/mL solution 60 mL 60 mL, Intravenous, ONCE PRN, 1 dose, Starting on Thu10/19/18 at 1410, Until Thu10/19/18 at 1413, Per Protocol, Routine Given 10/19/2018 2:13 PM EDT 60 mLs documented in this encounter Care Teams Welder Gun Relationship Specialty Start Date End Date Tang Ling MD [address] [place] [phone] PCP - General General Internal Medicine 07/04/16 documented as of this encounter
--- OUTSIDE RECORDS SUMMARY | 2024-05-02 14:24 | XMS_ITS | Encounter Summary ---
Author Organization [facility] [place] [address] Care Team Providers Care Swimmer Name Role Phone Tang Ling MD Primary Care Provider [phone] Encounter Details Date Type Department Care Team (Late st Contact Info) Description 09/08/2018 Telephone Cardiology at [address] [phone] Jeniffer Ventura APRN [facility] [place] [address] Social History Tobacco Use Types Packs/Day Years [...] encounter Miscellaneous Notes * Telephone Encounter - Jeniffer Ventura APRN - 09/08/2018 2:55 PM EST 09/08/2018 Lou Mo Initial Contact Date: 09/08/18 Initial contact time: 14:15 Referring Provider: Dr. Tamy Murray Patient Location: [facility] Past Medical History: CAD, s/p stent to LAD and D1 in 2015, cath on 07/26/18 showing patent stents and 45% mid LAD stenosis (not hemodynamically significant with iFR and FFR) Presenting Symptoms per OSH: Patient presented to [facility] ED with shortness of breath, chest pain, weakness, and lightheadedness. Labs, chest x-ray, EKG are all within normal limits. Pertinent Diagnostic Findings: EKG was not sent to be reviewed, but per Dr. Murray, it is similar to previous EKGs, no ischemic changes CXR wnl BMP + CBC wnl Trop negative Past cardiac studies: Echo 07/21/17: EF 67%, no WMAs, no valvular disease Nuclear stress 07/21/17: FINDINGS: A single set of images was performed during the chest pain episode. No fixed or reversible perfusion defects are present. Left ventricular ejection fraction 61.7% Cath 07/26/18: previous D1 and LAD stents patent, 45% stenosis in mid LAD which was not hemodynamically significant per iFR (0.93) and FFR (0.88) OSH Interventions: Dr. Murray requested any additional recommendations for management. Plan: Reviewed patient's cardiac work up in the recent past, which did not show any concerning findings. Recommended the following: - Consideration of ziopatch or holter monitor, although it is unlikely patient is having arrhythmias that have not been caught on telemetry during multiple hospitalizations - Consideration of a repeat chest CT, as d-dimer was elevated in past but chest CT was negative at that time - Checking inflammatory markers - Trying an anti-anginal, such as nitro, although reviewed that it could worsen her lightheadedness - Pulmonology referral - above recommendations were based on my discussion with Dr. Murray; I have not personally interviewed or examined this patient; I have not personally reviewed EKGs. Jeniffer Ventura, MSN, [employer], [employer] [facility] Cardiovascular Medicine Addendum 09/08/18 at 16:39: Received call from Dr. Murray to relay that the patient is stable, not orthostatic, peak flow was wnl, and inflammatory markers have been ordered. She continues to be concerned about patient's primary symptoms of shortness of breath and feeling like she may pass out with movement. Also reports chest pain has no pattern, it comes and goes. Discussed that we do not have any cardiology beds available, and that recent cath, current EKG, and diagnostics are all without acute abnormalities. Recommended pulmonology referral with PFTs, and referral to [facility] cardiology to discuss further work up (as patient has requested). She also reported that patient's PCP feels that the symptoms are related to anxiety and recommended trying ativan. Jeniffer Ventura, MSN, [employer], [employer] [facility] Cardiovascular Medicine documented in this encounter Plan of Treatment Upcoming Encounters Date Type Department Care Team (Late st Contact Info) Description 07/06/2024 1:30 PM EST Office Visit Cardiology at [address] [phone] Delta Reyes MD [facility] [place] [address] documented as of this encounter Visit Diagnoses Not on filedocumented in this encounter Care Teams Swimmer Relationship Specialty Start Date End Date Tang Ling MD [address] [place] [phone] PCP - General General Internal Medicine 07/04/16 documented as of this encounter
--- OUTSIDE RECORDS SUMMARY | 2024-05-02 14:24 | XMS_ITS | Encounter Summary ---
Author Organization [facility] Address [facility] [place] [address] Care Team Providers Care Early Childhood Coordinator Name Role Phone Tang Ling MD Primary Care Provider [phone] Encounter Details Date Type Department Care Team (Late st Contact Info) Description 07/26/2018 10:30 AM EST - 07/26/2018 11:30 AM EST Surgery [place] [address] Huber Barnes MD [facility] [address] CARDIAC CATHETERIZATION Social History Tobacco Use Types [...] Sign Reading Time Taken Comments Blood Pressure 116/52 07/26/2018 9:43 AM EST Pulse 61 07/26/2018 9:43 AM EST Temperature 37.1 ??C (98.8 ??F) 07/26/2018 9:43 AM ES T Respiratory Rate 18 07/26/2018 9:43 AM EST Oxygen Saturation 97% 07/26/2018 9:43 AM EST Inhaled Oxygen Concentration - - Weight 63.5 kg (140 lb) 07/26/2018 9:43 AM EST Height 157.5 cm (5' 2) 07/26/2018 9:43 AM EST Body Mass Index 25.6 07/26/2018 9:43 AM EST documented in this encounter Discharge Instructions * Discharge Instructions* Mal Boyle, RN - 07/26/2018 5:53 PM EST Radial Access for Heart Cath Activity If you are discharged the same day as your procedure, do not drive yourself home. Arrange to have another person drive. You may walk around when you get home, but keep your activity at a minimum until the morning. Try to avoid bending your wrist for the first 12-24 hours after the procedure to allow the artery to fully heal. Do not participate in active sports for 48 hours. Do not lift anything greater than 5 lbs. You may engage in sexual activity after 48 hours. Catheter Insertion Area Care Take the dressing [...] your fingers or hand contact your doctor. If you feel faint or dizzy, lie down with your feet elevated. Have someone call the doctor. If you are alert, drink fluids. How to Deal with Chest Pain If you had only the cardiac catheterization, treat any angina or chest discomfort as instructed. Stop what you are doing, and sit or lie down. If prescribed, take nitroglycerin under your tongue. If the angina isn't relieved, take another nitroglycerin in 5 minutes. After another 5 minutes, a third nitroglycerin may be taken. If the angina isn't improved you should call for an ambulance to bring you to the nearest hospital emergency room. If your angina is more frequent or severe than before, contact your doctor. We usually would not expect you to have angina after an angioplasty. If you do get angina, treat itas you did before, but also contact your doctor. Return to Work The doctor will usually have told you when to return to work. If you do not perform heavy physical labor, most people can return to work in a few days. Diet Follow your previous diet unless otherwise instructed. Cardiac Risk Factor If you have coronary artery disease, it is important that you help control it by reducing your cardiac risk factors. If you smoke, we urge you to stop now. If you think this is going to be a problem,let us know so that we may help you. We have dieticians who can help you learn about a low fat, lowcholesterol diet. Cardiac rehabilitation programs can help you set up a regular exercise program. Work with your doctor if you have high blood pressure or sugar diabetes to keep these under control. Medications Take your usual medications medication changes If you are taking medications prescribed by your doctor, do not take any [id number] medicinesor herbal preparations without first discussing this with your doctor or pharmacist. There is the possibility of side effects and interactions when these are combined. Follow Up Care Who to call with questions or problems If there are any questions or problems that you think might be related to your cardiac cath or angioplasty, contact the coder production generalist by calling [facility] at . * Patient Instructions* Gina Frazier MD - 07/26/2018 3:57 PM EST Cardiology Instructions Call your doctor if: Chest pain, dyspnea, pain or swelling in legs occurs. If you have non-emergent questions between now and the time of your follow up appointments: -During 8am-5pm Thursday through Thursday call [phone] to speak with a nurse in the cardiology clinic -All other times call [phone] and ask to speak to the gas operations superintendent production generalist. MEDICATIONS -Double you metoprolol and start amlodipine for chest pain Return to work/ usual actvities: 1 week, as tolerated. Do not lift anything greater than 1 gallon for milk for 1 week You can shower the day after your procedure, but don't take any tub baths or soak in pools for 1 week after your procedure. Driving: No driving for 48 hours after catheterization. Follow up Appointments: Primary care provider: Cardiology: Tang Ling MD [phone] Follow up as planned or as needed. Dr. Mabry Call for an appointment in 4 weeks documented in this encounter Medications at Time of Discharge Medication Sig Dispensed Refills Start Date End Date nitroGLYcerin (NITROSTAT) 0.4 mg Tablet, Sublingual Place 1 tablet under the tongue every 5 minutes as needed for Chest pain. 90 tablet 12 05/29/2016 aspirin 81 mg EC tablet Take 81 mg by mouth daily. rosuvastatin (CRESTOR) 40 mg tablet Take 40 mg by mouth daily. amLODIPine (NORVASC) 5 mg Tablet Take 1 tablet by mouth daily. 90 tablet 3 07/26/2018 09/16/2018 metoprolol succinate (TOPROL-XL) 50 mg Tablet Sustained Release 24 hr Take 2 tablets by mouth daily. 90 tablet 3 07/26/2018 09/16/2018 FARXIGA 10 mg Tablet 10 mg daily. 2 07/14/2018 019 documented as of this encounter Progress Notes * Mal Boyle RN - 07/26/2018 6:08 PM EST Reviewed D/C instructions with patient and daughter. Verbalized understanding. All questions and concerns were addressed at this time. documented in this encounter H&P Notes * Gina Frazier MD - 07/26/2018 1:36 PM EST Images from the original note were not included. dPatient Name: Lou Mo Patient Age: 72 y.o. Birthdate: 1945 Admit date: 07/26/2018 Attending Physician: Huber Barnes MD Pre Cardiac Catheterization Note 72 y.o. female presents for left heart catheterization. She has a history of prior stents to the LAD and D1 in 2016. About two weeks ago she developed chest pain both at rest and with activity. It is7/10 at its most severe. Activity does bring it on. It is a pressure sensation. She was admitted with chest discomfort about a year ago and had a negative stress test. After that she did much better with pain until two weeks ago. She does not smoke. She is diabetic. Her mother also had coronary artery disease and CABG. He has hyperlipidemia on rosuvastatin. She has not taken aspiring since the 24 of July (she forgot yesterday). No planned upcoming surgeries. No recent or ongoing bleeding events. BP 116/52 (BP Location (NBP): Right arm) Pulse 61 Temp 37.1 ??C (98.8 ??F) (Temporal) Resp 18 Ht 157.5 cm (5' 2) Wt 63.5 kg (140 lb) SpO2 97% BMI 25.61 kg/m?? Gen: Pleasant female in no apparent distress, able to lay flat Cor: Regular rate and rhythm; S1/S2 of normal character and amplitude, no murmurs, rubs or gallops.JVP are not elevated Pulm: Clear and equal to auscultation bilaterally Ext: Bilateral Ceferino's Test normal (both the radial and ulnar arteries alone provide ample circulation to the hand arcade). Femoral arteries are with adequate upstroke and without overlying evidence of infection. DP/PT ++ Neuro: Awake, alert, answers questions appropriately. No facial droop. ASA: 3: Patient with severe systemic disease Mallampati: I: soft palate, fauces, tonsillar pillars and uvula can be seen Last 3 wbc, hgb, hct plt Recent Labs 07/26/18 0915 WBC 7.4 HGB 14.1 HCT 41.2 PLATELET 162 Last 3 Lytes Recent Labs 07/26/18 0915 NA 143 K 4.0 CL 105 CO2 27 BUN 16 CREATININE 1.00 Previous Catheterization: 2015 Dr. Amaya * One vessel coronary artery disease (LAD) * Successful stent insertion of the mid LAD lesion * Successful stent insertion of the proximal D1 lesion * Drug Eluting Stents Deployed. The indications, expected benefits, and potential risks of heart catheterization were reviewed in detail with the patient. The potential for , heart attack, stroke, kidney failure, hemorrhage, allergic reaction, vascular complications and infection were reviewed in detail. The possibility of stenting and other percutaneous intervention, with associated risk, was reviewed. The possible need for emergent coronary artery bypass surgery was reviewed. Alternatives were discussed and the patient's questions were answered in full. Following this discussion, the patient consented to the procedure and signed a form attesting to this, which is in the chart. Plan: Coronary Angio via right radial artery No C/I to long-term DAPT Moderate Sedation OK Gina Frazier MD 07/26/2018 documented in this encounter Miscellaneous Notes * Brief Op Note - Huber Barnes MD - 07/26/2018 3:53 PM EST Brief Operative Note Patient Name: Lou Mo : [id number] MR#: [id number] Case Date: 07/26/2018 Surgeon: Surgeon(s) and Role: * Huber Barnes MD - Primary * Gina Frazier MD - Fellow-Interventional Preoperative diagnosis: Chest discomfort [R07.89] Postoperative diagnosis: Chronic stable angina pectoris Procedures: Right transradial arterial access Selective coronary angiography Left heart catheterization IFR + FFR mid-LAD IVUS mid-LAD Findings: LM - Mild luminal irregularity LAD - Eccentric 50% stenosis of the mid-LAD just before the entrance of the previously deployed mid-LAD stent LCX - Mild luminal irregularities RCA - Dominant vessel; mild luminal irregularities LVEDP ~7 mmHg; no significant gradient on pullback across the aortic valve IFR = 0.93 / FFR (after 2 minutes of IV adenosine) = 0.88, indicating a non- hemodynamically significant stenosis. IVUS mid-LAD shows eccentric calcified moderate disease just before the stent inlet and no evidence of dissection by IVUS interrogation. Stent in the mid-LAD appears well-expanded and apposed. Recommend further optimization of anti-anginal therapies. Complications: None Frailty 3 Definitions from [employer] Study of Health and Aging Clinical Frailty Scale: ?? 1: VERY FIT: energetic, exercising regularly 2: WELL: no active disease symptoms, exercising occasionally or seasonally 3: MANAGING WELL: well-controlled medical problems, no exercise more than routine walking 4: VULNERABLE: symptoms limit activities, though not dependent on others for daily help. Often complain for being slowed up or tired 5: MILDLY FRAIL: more evidently impaired, needing help with high order ADLs such as finances, transportation, heavy housework, medications, walking outside, meal preparation 6: MODERATELY FRAIL: requiring help with all outside activities and with minor service delivery analyst. May need help with bathing and dressing. 7: SEVERELY FRAIL: completely dependent for personal care, but stable and not at high risk of dyingwithin 6 months 8: VERY SEVERELY FRAIL: completely dependent, approaching end of life. Not likely to recover from even minor added illness 9: TERMINALLY ILL: Life expectancy of less than 6 months, even if not otherwise frail documented in this encounter Plan of Treatment Upcoming Encounters Date Type Department Care Team (Late st Contact Info) Description 07/06/2024 1:30 PM EST Office Visit Cardiology at [address] [address] Delta Reyes MD [facility] [place] [address] documented as of this encounter Procedures Procedure Name Priority Date/Time Associated Diagnosis Comments POCT GLUCOSE Routine 07/26/2018 5:49 PM EST POCT GLUCOSE Routine 07/26/2018 10:08 AM EST EKG 12-LEAD Routine 07/26/2018 9:53 AM EST Chest discomfort BMP W/FASTING GLUCOSE STAT 07/26/2018 9:15 AM EST HEMOGRAM STAT 07/26/2018 9:15 AM EST DIFFERENTIAL, AUTOMATED STAT 07/26/2018 9:15 AM EST CBC (WITH DIFF) STAT 07/26/2018 9:15 AM EST documented in this encounter Results * POCT Glucose (07/26/2018 5:49 PM EST) Glucose, POC 104 65 - 199 mg/dL [facility] Comment: Supplemental ranges: <140 mg/dL before meals <180 mg/dL all other times of the day Blood specimen (specimen) 07/26/2018 5:49 PM EST 07/26/2018 5:49 PM EST Huber Barnes MD POINT OF CARE TEST Tucker BURGESS Performing Organization Address [facility] Co de Phone Number [facility] [place] [address] * POCT Glucose (07/26/2018 10:08 AM EST) Glucose, POC 152 65 - 199 mg/dL [facility] Comment: Supplemental ranges: <140 mg/dL before meals <180 mg/dL all other times of the day Blood specimen (specimen) 07/26/2018 10:08 AM EST 07/26/2018 10:08 AM EST Huber Barnes MD POINT OF CARE TEST O JENIFER Performing Organization Address [facility]/ZIP Co de Phone Number [facility] [place] [address] * EKG 12 Lead (07/26/2018 9:53 AM EST) Ventricular rate 68 BPM MUSE SYSTEM Atrial Rate 68 BPM MUSE SYSTEM P-R Interval 216 ms MUSE SYSTEM QRS Duration 86 ms MUSE SYSTEM Q-T Interval 414 ms MUSE SYSTEM QTC Calculated (Bezet) 440 ms MUSE SYSTEM Calculated P Fisher 35 degrees MUSE SYSTEM Calculated R Fisher -27 degrees MUSE SYSTEM Calculated T Fisher 30 degrees MUSE SYSTEM INTERPRETATION Sinus rhythm with 1st degree A-V block Poor R-wave progression When compared with ECG of 22-JUL-2017 07:36, No significant change was found Confirmed by MD Scout, [place] ([id number]) on 07/26/2018 9:58:21 AM MUSE SYSTEM 07/26/2018 9:53 AM EST 07/26/2018 9:58 AM EST Jamal Thurston MD ECG ORDERABLES MUSE SYSTEM * Differential, Automated (07/26/2018 9:15 AM EST) Neutrophil % 68.9 % [facility] Neutrophil Absolute 5.12 1.70 - 6.10 x10(3)/[facility] Lymph % 23.5 % [facility] Lymphocytes Abs 1.8 0.9 - 3.2 x10(3)/[facility] Monocyte % 5.6 % [facility] Monocyte Abs 0.4 0.3 - 0.9 x10(3)/[facility] [place] Eos % 1.2 % [facility] Eosinophils Abs 0.1 0.0 - 0.4 x10(3)/[facility] Basophil % 0.5 % [facility] Baso Absolute 0.0 0.0 - 0.1 x10(3)/[facility] Immature Gran % 0.30 % [facility] Comment: Immature granulocytes(IG's)percentage and absolute count will include metamyelocytes, myelocytes, and promyelocytes. Blood smears from CBCs yielding IG's will be scanned manually for concordance. If this scan disagrees with the automated IG or if promyelocytes are noted, a manual differential will be performed. Immature Gran Absolute 0.02 0.00 - 0.04 x10(3)/[facility] Blood specimen (specimen) 07/26/2018 9:15 AM EST 07/26/2018 9:27 AM EST Narrative Resulting Agency Comment Spec In Lab Shekhar BRIONES HEMATOLOGY ORDERABLE S Performing Organization Address City/[facility]/ZIP Co de Phone Number [facility] [place] [address] * Hemogram (07/26/2018 9:15 AM EST) White Blood Cell 7.4 4.0 - 9.5 x10(3)/[facility] Red Blood Cell 4.55 4.00 - 5.21 x10(6)/[facility] Hemoglobin 14.1 11.7 - 15.5 gm/dL [facility] Hematocrit 41.2 35.7 - 45.8 % [facility] Mean Cell Volume 90.5 82.6 - 94.4 [facility] Mean Cell Hemoglobin 31.0 27.1 - 32.0 pg [facility] Mean Cell Hemoglobin Concentration 34.2 31.7 - 35.0 gm/dL [facility] Platelet 162 145 - 357 x10(3)/[facility] RDW Standard Deviation 42.1 37.0 - 46.0 [facility] RDW coefficient of variation 12.7 11.5 - 14.1 % [facility] Mean Platelet Volume 10.3 7.6 - 12.9 [facility] NRBC% auto 0.0 % [facility] NRBC Absolute 0.000 0.000 - 0.000 x10(3)/[facility] Blood specimen (specimen) 07/26/2018 9:15 AM EST 07/26/2018 9:27 AM EST Narrative Resulting Agency Comment Spec In Lab Shekhar BRIONES HEMATOLOGY ORDERABLE S [facility] [place] [address] * (ABNORMAL) BMP w/fasting Glucose (07/26/2018 9:15 AM EST) Glucose Fasting 171(H) 65 - 99 mg/dL [facility] Comment: ?Fasting* Glucose Interpretive Criteria Normal ?65-99 mg/dL Impaired Fasting glucose ?100-125 mg/dL Consistent with Diabetes Mellitus ? >or= 126 mg/dL *Fasting is defined as no caloric intake for at least 8 hours In the absence of unequivocal hyperglycemia a plasma glucose value of >or= 126 mg/dL should be repeated on a subsequent day. Diagnosis and Classification of Diabetes Mellitus, Position Statement from the [place] [employer]. ??Diabetes Care, Volume 33, Supplement 1, Aug 2009 Blood Urea Nitrogen 16 8 - 18 mg/dL [facility] Creatinine 1.00 0.70 - 1.20 mg/dL [facility] Sodium 143 135 - 145 mmol/L [facility] Potassium 4.0 3.5 - 5.0 mmol/L [facility] Comment: Please note: ??Patients with WBC >100,000 may have falsely elevated Potassium levels. ??For accurate Potassium quantification in these patients send serum separator tube (gold top) for subsequent determinations. ??Contact the Clinical Chemistry Laboratory if there are any questions. Chloride 105 98 - 107 mmol/L [facility] Carbon Dioxide 27 22 - 31 mmol/L [facility] Anion Gap 11 5 - 15 mmol/L [facility] Calcium 8.9 8.5 - 10.5 mg/dL [facility] Est Glomerular Filtration Rate 56(L) >=60 mL/min/1. 73 m?? [facility] Comment: The eGFR was calculated using the CKD-EPI equation. As with all creatinine based estimates of kidney function, eGFR values calculated with the CKD-EPI equation are not accurate in patients with acute kidney failure, extremes of body mass or the acutely ill. [email or web address]/DHnkf eGFR 65 >=60 mL/min/1. 73 m?? [facility] Comment: The eGFR was calculated using the CKD-EPI equation. As with all creatinine based estimates of kidney function, eGFR values calculated with the CKD-EPI equation are not accurate in patients with acute kidney failure, extremes of body mass or the acutely ill. [email or web address] Blood specimen (specimen) 07/26/2018 9:15 AM EST 07/26/2018 9:27 AM EST Narrative Resulting Agency Comment Spec In Lab Jamal Thurston MD CHEMISTRY ORDERABLES Performing Organization Address City/State/[facility] Co de Phone Number [facility] [place] [address] documented in this encounter Visit Diagnoses Diagnosis Chest discomfort Other chest pain Chest discomfort Other chest pain documented in this encounter Administered Medications Inactive Administered Medications - up to 3 most recent administrations Medication Order MAR Action Action Date Dose Rate Site adenosine 90 mg in sodium chloride 0.9% 90 mL infusion (RAIL OPERATOR) CONTINUOUS PRN, Starting on Thu07/26/18 at 1511, Until Thu07/26/18 at 1552, Cath (Intra-Procedure), Routine New Bag 07/26/2018 3:15 PM EST 143.307 mcg/kg/min 546 mL/hr Left Arm aspirin chewable tablet ONCE PRN, Starting on Thu07/26/18 at 1415, Until Thu07/26/18 at 1552, Cath (Intra-Procedure), Routine Given 07/26/2018 2:15 PM EST 324 mg fentaNYL 50 mcg/mL multi-dose injection ONCE PRN, Starting on Thu07/26/18 at 1421, Until Thu07/26/18 at 1552, Intra-Operative (Intra-Procedure), Routine Given 07/26/2018 2:21 PM EST 25 mcg Left Arm heparin (porcine) injection ONCE PRN, Starting on Thu07/26/18 at 1430, Until Thu07/26/18 at 1552, Cath (Intra-Procedure), Routine Given 07/26/2018 2:30 PM EST 3,500 Units Left Arm iohexol (OMNIPAQUE) 350 mg/mL solution ONCE PRN, Starting on Thu07/26/18 at 1541, Until Thu07/26/18 at 1552, Cath (Intra-Procedure), Routine Given 07/26/2018 3:41 PM EST 80 mLs lidocaine (XYLOCAINE) 10 mg/mL (1 %) injection ONCE PRN, Starting on Thu07/26/18 at 1424, Until Thu07/26/18 at 1552, Cath (Intra-Procedure), Routine Given 07/26/2018 2:24 PM EST 6 mLs Right Arm midazolam (PF) (VERSED) multi-dose injection ONCE PRN, Starting on Thu07/26/18 at 1421, Until Thu07/26/18 at 1552, Cath (Intra-Procedure), Routine Given 07/26/2018 2:21 PM EST 1 mg Left Arm nitroGLYcerin 100 mcg/mL intracoronary dilution ONCE PRN, Starting on Thu07/26/18 at 1427, Until Thu07/26/18 at 1552, Cath (Intra-Procedure), Routine Given 07/26/2018 2:53 PM EST 200 mcg Given 07/26/2018 2:27 PM EST 150 mcg sodium chloride 0.9% infusion 200 mL/hr, Intravenous, CONTINUOUS, Starting on Thu07/26/18 at 1000, Until Thu07/26/18 at 1815, Cath (Day of Procedure) New Bag 07/26/2018 10:20 AM EST 200 mL/hr 200 mL/hr sodium chloride 0.9% infusion CONTINUOUS PRN, Starting on Thu07/26/18 at 1454, Until Thu07/26/18 at 1552, Cath (Intra-Procedure) New Bag 07/26/2018 2:54 PM EST 250 mLs Left Arm sodium chloride 0.9% infusion 150 mL/hr, Intravenous, CONTINUOUS, Starting on Thu07/26/18 at 1615, Until Thu07/26/18 at 1814, Recovery (Recovery-Hospital Unit) New Bag 07/26/2018 4:00 PM EST 150 mL/hr 150 mL/hr verapamil (ISOPTIN) injection ONCE PRN, Starting on Thu07/26/18 at 1427, Until Thu07/26/18 at 1552, Administer over 2 Minutes, Cath (Intra-Procedure) Given 07/26/2018 2:27 PM EST 2.5 mg documented in this encounter Active and Recently Administered Medications Times are shown in EST. Continuous Medication Order 07/24/2018 07/25/2018 07/26/2018 sodium chloride 0.9% infusion (CANCELED) 200 mL/hr, Intravenous, CONTINUOUS, Starting on Thu07/26/18 at 1000, Until Thu07/26/18 at 1815, Cath (Day of Procedure) 1020 (New Bag - Prov ider: Jossie Santos RN) sodium chloride 0.9% infusion 150 mL/hr, Intravenous, CONTINUOUS, Starting on Thu07/26/18 at 1615, Until Thu07/26/18 at 1814, Recovery (Recovery-Hospital Unit) 1600 (New Bag - Prov ider: Arlen Ha RN) PRN Medication Order 07/24/2018 07/25/2018 07/26/2018 adenosine 90 mg in sodium chloride 0.9% 90 mL infusion (RAIL OPERATOR) (CANCELED) CONTINUOUS PRN, Starting on Thu07/26/18 at 1511, Until Thu07/26/18 at 1552, Cath (Intra-Procedure), Routine 1515 (New Bag - Prov ider: Myranda Porter RN)1518 (Stopped - Provider: Myranda Porter RN) aspirin chewable tablet (CANCELED) ONCE PRN, Starting on Thu07/26/18 at 1415, Until Thu07/26/18 at 1552, Cath (Intra-Procedure), Routine 1415 (Given - Provid er: Luis Enrique Haney RN) diphenhydrAMINE/aluminum-magnesium hydroxide with simethicone/lidocaine (BMX) oral suspension 5-15 mL, Oral, ONCE PRN, 1 dose, Starting on Amelia 09/16/18 at 1103, Until Discontinued, per provider discretion, Each 5 mL contains equal parts of diphenhydramine (BENADYL), aluminum-magnesium hydroxide w/ simethicone (MAALOX), and lidocaine (XYLOCAINE) , Routine fentaNYL 50 mcg/mL multi-dose injection (CANCELED) ONCE PRN, Starting on Thu07/26/18 at 1421, Until Thu07/26/18 at 1552, Intra-Operative (Intra-Procedure), Routine 1421 (Given - Provid er: Luis Enrique Haney RN) heparin (porcine) injection (CANCELED) ONCE PRN, Starting on Thu07/26/18 at 1430, Until Thu07/26/18 at 1552, Cath (Intra-Procedure), Routine 1430 (Given - Provid er: Luis Enrique Haney RN) iohexol (OMNIPAQUE) 350 mg/mL solution (CANCELED) ONCE PRN, Starting on Thu07/26/18 at 1541, Until Thu07/26/18 at 1552, Cath (Intra-Procedure), Routine 154 (Given - Provid er: uHber Barnes MD) lidocaine (XYLOCAINE) 10 mg/mL (1 %) injection (CANCELED) ONCE PRN, Starting on Thu07/26/18 at 1424, Until Thu07/26/18 at 1552, Cath (Intra-Procedure), Routine 142 (Given - Provid er: Gina Frazier MD) midazolam (PF) (VERSED) multi-dose injection (CANCELED) ONCE PRN, Starting on Thu07/26/18 at 1421, Until Thu07/26/18 at 1552, Cath (Intra-Procedure), Routine 142 (Given - Provid er: Luis Enrique Haney RN) nitroGLYcerin 100 mcg/mL intracoronary dilution (CANCELED) ONCE PRN, Starting on Thu07/26/18 at 1427, Until Thu07/26/18 at 1552, Cath (Intra-Procedure), Routine 1427 (Given - Provid er: Gina Frazier MD)1453 (Given - Provider: Huber Barnes MD) sodium chloride 0.9% infusion (CANCELED) CONTINUOUS PRN, Starting on Thu07/26/18 at 1454, Until Thu07/26/18 at 1552, Cath (Intra-Procedure) 1454 (New Bag - Prov ider: Luis Enrique Haney RN) verapamil (ISOPTIN) injection (CANCELED) ONCE PRN, Starting on Thu07/26/18 at 1427, Until Thu07/26/18 at 1552, Administer over 2 Minutes, Cath (Intra-Procedure) 1427 (Given - Provid er: Gina Frazier MD) documented in this encounter Care Teams Early Childhood Coordinator Relationship Specialty Start Date End Date Tang Ling MD [address] [place] [phone] PCP - General General Internal Medicine 07/04/16 documented as of this encounter
--- OUTSIDE RECORDS SUMMARY | 2024-05-02 14:24 | XMS_ITS | Encounter Summary ---
Author Organization [facility]ly [facility] Address [facility] [place] [address] Care Team Providers Care Manager Inventory Name Role Phone Tang Ling MD Primary Care Provider [phone] Encounter Details Date Type Department Care Team (Late st Contact Info) Description 10/19/2018 4:40 PM EDT Office Visit Cardiology at [address] [phone] Gideon Rodriguez MD [facility] [address] Coronary artery disease, angina presence unspecified, unspecified vessel or lesion type, unspecified whether [place] and [place] or transplanted heart; Chest pain, unspecified type; S/P angioplasty with stent Social History Tobacco Use Types Packs/Day Years [...] Sign Reading Time Taken Comments Blood Pressure 116/68 10/19/2018 4:05 PM EDT Pulse 80 10/19/2018 4:05 PM EDT Temperature - - Respiratory Rate - - Oxygen Saturation 94% 10/19/2018 4:05 PM EDT Inhaled Oxygen Concentration - - Weight 65.8 kg (145 lb) 10/19/2018 4:05 PM EDT p er pt Height 157.5 cm (5' 2.01) 10/19/2018 4:05 PM ED T Body Mass Index 26.51 10/19/2018 4:05 PM EDT documented in this encounter Progress Notes * Gideon Rodriguez MD - 10/19/2018 4:40 PM EDT Images from the original note were not included. [facility] [place] [address] CARDIOLOGY OUTPATIENT FOLLOW-UP NOTE Lou Mo [id number] PCP: Tang Ling MD 10/19/2018 PRIMARY CARE PROVIDER: Tang Ling MD PROBLEM LIST: Patient Active Problem List Diagnosis ??? CAD (coronary artery disease) ??? Stress at home Family members living with her and not helping out. She lost her car due to finances. Grandson is borrowing her car. ??? S/P angioplasty with stent ??? Chest pain ??? CIS - Chest Pain ??? CIS - DM ??? CIS - Dyslipidemia ??? CIS - GERD ??? CIS - HTN MEDICATIONS: Current Outpatient Medications Medication Sig Dispense Refill ??? diclofenac (VOLTAREN) 50 mg Tablet, Delayed Release (E.C.) TAKE ONE TABLET BY MOUTH EVERY DAY 5 ??? metoprolol succinate (TOPROL-XL) 50 mg Tablet Sustained Release 24 hr Take 0.5 tablets by mouthdaily. 90 tablet 3 ??? omeprazole (PRILOSEC OTC) 20 mg Tablet, Delayed Release (E.C.) Take 1 tablet by mouth daily. 30tablet 11 ??? nitroGLYcerin (NITROSTAT) 0.4 mg Tablet, Sublingual Place 1 tablet under the tongue every 5 minutes as needed for Chest pain. 90 tablet 12 ??? aspirin 81 mg EC tablet Take 81 mg by mouth daily. ??? rosuvastatin (CRESTOR) 40 mg tablet Take 40 mg by mouth daily. No current facility-administered medications for this visit. Facility-Administered Medications Ordered in Other Visits Medication Dose Route Frequency Provider Last Rate Last Dose ??? diphenhydrAMINE/aluminum-magnesium hydroxide with simethicone/lidocaine (BMX) oral suspension 5-15 mL Oral Once PRN Gideon Rodriguez MD SUBJECTIVE: This 73-year-old woman comes for follow-up visit. She was new to me and I met her on September 16, 2018. She has known coronary artery disease and is status post stenting of a tight LAD lesion in 2016. She has had intermittent chest pain ever since and has had subsequent heart catheterization showing nothing significant. In July her symptoms began worsening and are occurring in several areas in her left pectoral region and at least some of the time of radiating to her neck, left arm, and scapular region. Various things can trigger her discomfort including walking, taking a deepbreath, and sometimes chest movement although today she tells me that neither respiration or movement of her torso Effexor pain. She had a recent emergency department visit with prolonged pain and had no enzyme elevation and a normal proBNP. She had concerns about low heart rates and she did show aless than ideal chronotropic response during a treadmill stress test, but this did not seem to explain her chest pain. When I last saw her I advised her to back down on her beta-amy and stop her a mlodipine since her blood pressure seem to be inappropriately low. She comes today indicating that she is feeling a little better. Her lack of energy and lightheadedness have improved. Unfortunately, she continues to have fairly frequent chest pain. This occurs in variable regions in her left chest. She tells me that movement of her torso does not affect the pain nor does a deep inspiration. Her symptoms seem to come most often with no pattern and are often prolonged. OBJECTIVE: Vital Signs: BP 116/68 Pulse 80 Ht 157.5 cm (5' 2.01) Wt 65.8 kg (145 lb) Comment: per pt SpO2 94% BMI 26.51 kg/m?? Physical Exam: Her exam today is unremarkable. She has normal jugular venous pressures, clear lungs, and a normal cardiac exam. Examination of her chest does not reveal any focal tenderness. Her abdomen is soft and nontender. Twelve-lead EKG: This revealed sinus rhythm with no abnormalities. Echocardiogram: Performed earlier today, this showed an ejection fraction of 75% with no wall motion abnormalities. She had 1+-2+ aortic insufficiency. Formal reading below: SUMMARY: ?? 1. Technically limited study. 2. The left [...] in size. The right atrium appears normal. ?? 5. Mild to moderate (1-2+/4+) aortic valve regurgitation is present. 6. See remainder of report for additional findings. CT of chest with contrast: This has not been formally read but I reviewed the imaging with radiology and the preliminary impression was that there were no clear abnormalities and no evidence of aortic dissection. ASSESSMENT: The cause of this woman's ongoing chest discomfort is unclear. Her CT scan does not support the suggestion of an aortic dissection. She has no chest wall tenderness and no respiratory or positional component to her symptoms so it seems unlikely to be musculoskeletal. She was started on Prilosec and consideration of a possible esophageal cause to her symptoms and thus far this has not helped. It might be reasonable to try a higher dose or more potent acid blocking drug. She is a diabetic and could have neuropathic pain. Neither the pattern nor the results of her heart catheterization suggest a coronary artery or cardiac ischemic etiology to her symptoms. She was frustrated that Idid not have a definite answer for her but was appreciative of the efforts and investigation thus far. I recommended that she follow-up with her PCP, Tang Ling MD to further explore the cause of her symptoms. PLAN: 1. No further cardiovascular testing 2. Follow-up as scheduled with PCP 3. Routine cardiology follow-up in 1 year documented in this encounter Plan of Treatment Upcoming Encounters Date Type Department Care Team (Late st Contact Info) Description 07/06/2024 1:30 PM EST Office Visit Cardiology at [address] [phone] Delta Reyes MD [facility] [place] [address] documented as of this encounter Procedures Procedure Name Priority Date/Time Associated Diagnosis Comments EKG 12-LEAD Routine 10/19/2018 4:20 PM EDT Coronary artery disease, angina presence unspecified, unspecified vessel or lesion type, unspecified whether [place] and [place] or transplanted heart Chest pain, unspecified type S/P angioplasty with stent documented in this encounter Results * EKG 12 Lead (10/19/2018 4:20 PM EDT) Ventricular rate 70 BPM MUSE SYSTEM Atrial Rate 70 BPM MUSE SYSTEM P-R Interval 188 ms MUSE SYSTEM QRS Duration 84 ms MUSE SYSTEM Q-T Interval 390 ms MUSE SYSTEM QTC Calculated (Bezet) 421 ms MUSE SYSTEM Calculated P [place] 55 degrees MUSE SYSTEM Calculated R [place] -17 degrees MUSE SYSTEM Calculated T [place] 54 degrees MUSE SYSTEM INTERPRETATION Normal sinus rhythm Normal ECG When compared with ECG of 16-SEP-2018 10:16, No significant change was found Confirmed by MD ARTIS, LUCERO ([id number]) on 10/20/2018 2:11:16 PM MUSE SYSTEM 10/19/2018 4:20 PM EDT 10/20/2018 2:11 PM EDT Gideon Rodriguez MD ECG ORDERABLES MUSE SYSTEM documented in this encounter Visit Diagnoses Diagnosis Coronary artery disease, angina presence unspecified, unspecified vessel or lesion type, unspecified whether [place] and [place] or transplanted heart Chest pain, unspecified type S/P angioplasty with stent Postsurgical percutaneous transluminal coronary angioplasty status documented in this encounter Care Teams Manager Inventory Relationship Specialty Start Date End Date Tang Ling MD [address] [place] [id number] PCP - General General Internal Medicine 07/04/16 documented as of this encounter
--- OUTSIDE RECORDS SUMMARY | 2024-05-02 14:24 | XMS_ITS | Encounter Summary ---
Author Organization [facility] Address [facility] [place] [address] Care Team Providers Care Feeder Catcher Name Role Phone Tang Ling MD Primary Care Provider [phone] Encounter Details Date Type Department Care Team (Late st Contact Info) Description 10/18/2018 Orders Only Cardiology at [address] [phone] Gideon Rodriguez MD [facility] [place] [address] Chest pain, unspecified type (Primary Dx); Coronary artery disease, angina presence unspecified, unspecified vessel or lesion type, unspecified whether [place] or transplanted heart Social History Tobacco Use Types Packs/Day Years [...] 1:30 PM EST Office Visit Cardiology at [address] [phone] Delta Reyes MD [facility] [address] documented as of this encounter Results * Creatinine (10/19/2018 1:00 PM EDT) Creatinine 0.89 0.70 - 1.20 mg/dL [facility] Est Glomerular Filtration Rate 64 >=60 mL/min/1.7 3 m?? [facility] Comment: The eGFR was calculated using the CKD-EPI equation. As with all creatinine based estimates of kidney function, eGFR values calculated with the CKD-EPI equation are not accurate in patients with acute kidney failure, extremes of body mass or the acutely ill. [email or web address] eGFR 75 >=60 mL/min/1.7 3 m?? [facility] Comment: The eGFR was calculated using the CKD-EPI equation. As with all creatinine based estimates of kidney function, eGFR values calculated with the CKD-EPI equation are not accurate in patients with acute kidney failure, extremes of body mass or the acutely ill. [email or web address] Blood specimen (specimen) 10/19/2018 1:00 PM EDT 10/19/2018 1:11 PM EDT Narrative Resulting Agency Comment Spec In Lab Gideon Rodriguez MD CHEMISTRY ORDERABLES [facility] [place] [address] documented in this encounter Visit Diagnoses Diagnosis Chest pain, unspecified type- Primary Coronary artery disease, angina presence unspecified, unspecified vessel or lesion type, unspecified whether [place] or transplanted heart documented in this encounter Care Teams Feeder Catcher Relationship Specialty Start Date End Date Tang Ling MD [address] [place] [id number] PCP - General General Internal Medicine 07/04/16 documented as of this encounter
--- OUTSIDE RECORDS SUMMARY | 2024-05-02 14:24 | XMS_ITS | Encounter Summary ---
Author Organization [facility] Address [facility] [address] Care Team Providers Care Gasoline Truck Crane Operator Name Role Phone Tang Ling MD Primary Care Provider Encounter Details Date Type Department Care Team (Latest Contact Info) Description 07/19/2017 - 07/19/2017 11:59 PM EST Hospital Encounter Radiology Library at [facility] [place] [phone] Forrest Amaya MD [facility] [place] [address] Discharge Disposition: Home Social History Tobacco Use [...] tablet Take 40 mg by mouth daily. ciprofloxacin (CIPRO) 250 mg Tablet Take 1 tablet by mouth 2 times daily. 20 tablet 07/06/2016 07/22/2017 clopidogrel (PLAVIX) 75 mg Tablet Take 1 tablet by mouth daily. 30 tablet 11 05/29/2016 07/23/2018 metFORMIN (GLUCOPHAGE) 1,000 mg Tablet Take 1,000 mg by mouth 2 times daily (with meals). 07/23/2018 metoprolol tartrate (LOPRESSOR) 50 mg tablet Take 50 mg by mouth 2 times daily. 07/22/2017 diphenhydrAMINE (BENADRYL) 25 mg tablet Take 25 mg by mouth nightly as needed. 07/22/2017 documented as of this encounter Plan of Treatment Upcoming Encounters Date Type Department Care Team (Late st Contact Info) Description 07/06/2024 1:30 PM EST Office Visit Cardiology at [address] [phone] Delta Reyes MD [facility] [place] [address] documented as of this encounter Procedures Procedure Name Priority Date/Time Associated Diagnosis Comments FILM LIBRARY STORAGE ONLY DX CHEST Routine 07/19/2017 12:00 AM EST documented in this encounter Results * Film Library- Storage Only DX Chest (07/19/2017 12:00 AM EST) Narrative [facility] - 07/20/2017 8:55 AM EST This exam is for storage only and is auto-finalizing. Forrest Oconnor MD IMG FILM LIBRARY ORD ERABLES [place], [place] documented in this encounter Visit Diagnoses Not on filedocumented in this encounter Care Teams Gasoline Truck Crane Operator Relationship Specialty Start Date End Date Tang Ling MD [address] [place] [phone] PCP - General General Internal Medicine 07/04/16 documented as of this encounter
--- OUTSIDE RECORDS SUMMARY | 2024-05-02 14:24 | XMS_ITS | Encounter Summary ---
Author Organization [facility] Address [facility] [place] [address] Care Team Providers Care Business Owner/Engineer Name Role Phone Tang Ling MD Primary Care Provider [phone] Encounter Details Date Type Department Care Team (Late st Contact Info) Description 07/19/2017 Telephone [place] [address] Kenneth Reyna MD [facility] [place] [address] Social History Tobacco Use Types Packs/Day Years [...] encounter Miscellaneous Notes * Telephone Encounter - Kenneth Reyna - 07/19/2017 6:43 PM EST 07/19/2017 Lou Mo Initial Contact Date: 07/19/2017 Initial contact time: 1900 Referring Provider: Tang Rojas MD Patient Location: [facility] Reason for presentation at OSH: UA Outside Hospital Course: Appears to be unstable angina. 2 stents here previously. No significant lung disease. 10 - day history with shortness of breath with minimal exertion. PCP was seen last week - CTA done on Thursday which was negative. Soon after the shortness of breath started, started having chest pressure as well. Radiates to back -> 4/10 made worse by exertion. Talked to PCP who recommended going to ED. Pain went away with nitro - still has back pain 10/10. 10/10 pain - negative troponin; ASA/Heparin drip/Plavix EKG - ?borderline ST depressions laterally, otherwise normal sinus rhythm 119/58, 63HR, 24RR, 93% on 3L OSH Interventions: ASA, Heparin Drip, Plavix 300 SLN Plan: Story relatively concerning for ACS; troponin negative, EKG unchanged. A bit atypical. PE/Dissection ruled out per OSH provider by CTA done on Thursday as outpatient. We have no beds currently. They will manage her and hope for transfer for stress test vs. Catheterization on Thursday/when a bed becomes available. - Above recommendations are based on information received over the phone; I have not personally interviewed or examined this patient. Kenneth Reyna MD Lead Maintenance Technician [id number] documented in this encounter Plan of Treatment Upcoming Encounters Date Type Department Care Team (Late st Contact Info) Description 07/06/2024 1:30 PM EST Office Visit Cardiology at [address] [phone] Delta Reyes MD [facility] [place] [address] documented as of this encounter Visit Diagnoses Not on filedocumented in this encounter Care Teams Business Owner/Engineer Relationship Specialty Start Date End Date Tang Ling MD [address] [place] [phone] PCP - General General Internal Medicine 07/04/16 documented as of this encounter
--- OUTSIDE RECORDS SUMMARY | 2024-05-02 14:24 | XMS_ITS | Encounter Summary ---
Author Organization [facility] Address [facility] [place] [address] Care Team Providers Care Outbound Call Center Representative Name Role Phone Tang Ling MD Primary Care Provider [phone] Encounter Details Date Type Department Care Team (Latest Contact Info) Description 07/17/2017 - 07/17/2017 11:59 PM EST Hospital Encounter Radiology Library at [facility] [place] [phone] Forrest Amaya MD [facility] [place] [address] Discharge Disposition: Home Social History Tobacco Use [...] 1:30 PM EST Office Visit Cardiology at [address] [phone] Delta Reyes MD [facility] [place] [address] documented as of this encounter Procedures Procedure Name Priority Date/Time Associated Diagnosis Comments FILM LIBRARY STORAGE ONLY CT CHEST Routine 07/17/2017 12:00 AM EST documented in this encounter Results * Film Library- Storage Only CT Chest (07/17/2017 12:00 AM EST) Narrative [facility] - 07/20/2017 8:54 AM EST This exam is for storage only and is auto-finalizing. Forrest Oconnor MD IMG FILM LIBRARY ORD ERABLES [place], [place] documented in this encounter Visit Diagnoses Not on filedocumented in this encounter Care Teams Outbound Call Center Representative Relationship Specialty Start Date End Date Tang Ling MD [address] [place] [phone] PCP - General General Internal Medicine 07/04/16 documented as of this encounter
--- OUTSIDE RECORDS SUMMARY | 2024-05-02 14:24 | XMS_ITS | Encounter Summary ---
Author Organization [facility] Address [facility] [place] [address] Care Team Providers Care Mushroom Cutter Name Role Phone Tang Ling MD Primary Care Provider Encounter Details Date Type Department Care Team (Latest Contact Info) Description 09/16/2018 12:39 PM EST - 09/16/2018 11:59 PM EST Hospital Encounter Non-[place] [phone] Gideon Rodriguez MD [facility] [address] [place] [phone] Coronary artery disease, angina presence unspecified, unspecified vessel or lesion type, unspecified whether [place] or transplanted heart; Chest pain, unspecified type [...] unspecified vessel or lesion type, unspecified whether [place] or transplanted heart,Chest pain, unspecified type Take [...] PM EST Office Visit Cardiology at [address] [phone] Delta Reyes MD [facility] [place] [address] documented as of this encounter Procedures Procedure Name Priority Date/Time Associated Diagnosis Comments STRESS TEST, EXERCISE (TREADMILL) Routine 09/16/2018 1:40 PM EST Coronary artery disease, angina presence unspecified, unspecified vessel or lesion type, unspecified whether [place] or transplanted heart Chest pain, unspecified type documented in this encounter Results * Stress Test, Exercise (Treadmill) (09/16/2018 1:40 PM EST) Anatomical Region Laterality Modality Other Gideon Rodriguez MD CARDIAC SERVICES ORD ERABLES documented in this encounter Visit Diagnoses Diagnosis Coronary artery disease, angina presence unspecified, unspecified vessel or lesion type, unspecified whether [place] or transplanted heart Chest pain, unspecified type documented in this encounter Care Teams Mushroom Cutter Relationship Specialty Start Date End Date Tang Ling MD [address] [place] [phone] PCP - General General Internal Medicine 07/04/16 documented as of this encounter
--- OUTSIDE RECORDS SUMMARY | 2024-05-02 14:24 | XMS_ITS | Encounter Summary ---
Author Organization [facility] Address [facility] [place] [address] Care Team Providers Care Power Reactor Supervisor Name Role Phone Tang Ling MD Primary Care Provider [phone] Encounter Details Date Type Department Care Team (Late st Contact Info) Description 07/19/2017 External [place] [phone] Social History Tobacco Use Types Packs/Day Years [...] PM EST Office Visit Cardiology at [address] [phone] Delta Reyes MD [facility] [place] [address] documented as of this encounter Procedures Procedure Name Priority Date/Time Associated Diagnosis Comments ECG SCAN Routine 07/19/2017 documented in this encounter Results * Scan Doc: ECG (07/19/2017) Historical Provider MD KAUFMAN MGR SCAN EX T ORDR/RSLT documented in this encounter Visit Diagnoses Not on filedocumented in this encounter Care Teams Power Reactor Supervisor Relationship Specialty Start Date End Date Tang Ling MD [address] [place] [phone] PCP - General General Internal Medicine 07/04/16 documented as of this encounter
--- OUTSIDE RECORDS SUMMARY | 2024-05-02 14:24 | XMS_ITS | Encounter Summary ---
Author Organization [facility] Address [facility] [place] [address] Care Team Providers Care Bleach Machine Operator Name Role Phone Tang Ling MD Primary Care Provider Encounter Details Date Type Department Care Team (Late st Contact Info) Description 10/14/2018 Orders Only Cardiology at [address] [phone] Gideon Rodriguez MD [facility] [place] [address] Coronary artery disease, angina presence unspecified, unspecified vessel or lesion type, unspecified whether [place] or transplanted heart (Primary Dx); Chest pain, unspecified type; S/P angioplasty with [...] 1:30 PM EST Office Visit Cardiology at [address] [phone] Delta Reyes MD [facility] [place] [address] documented as of this encounter Results * EKG 12 Lead (10/19/2018 4:20 PM EDT) Ventricular rate 70 BPM MUSE SYSTEM Atrial Rate 70 BPM MUSE SYSTEM P-R Interval 188 ms MUSE SYSTEM QRS Duration 84 ms MUSE SYSTEM Q-T Interval 390 ms MUSE SYSTEM QTC Calculated (Bezet) 421 ms MUSE SYSTEM Calculated P [place] 55 degrees MUSE SYSTEM Calculated R [place] -17 degrees MUSE SYSTEM Calculated T [place] 54 degrees MUSE SYSTEM INTERPRETATION Normal sinus [...] unspecified vessel or lesion type, unspecified whether [place] or transplanted heart- Primary Chest pain, unspecified type S/P angioplasty with stent Postsurgical percutaneous transluminal coronary angioplasty status documented in this encounter Care Teams Bleach Machine Operator Relationship Specialty Start Date End Date Tang Ling MD [address] [place] [phone] PCP - General General Internal Medicine 07/04/16 documented as of this encounter
--- OUTSIDE RECORDS SUMMARY | 2024-05-02 14:24 | XMS_ITS | Encounter Summary ---
Author Organization [facility] [place] [address] Care Team Providers Care Senior Research Analyst Name Role Phone Tang Ling MD Primary Care Provider Reason for Visit * Auth/Cert Specialty Diagnoses / Procedures Referred By Contac t Referred To Contact Diagnoses CAD (coronary artery disease) [place] VS [facility] Referral ID Status Reason Start Date Expiration Date Visits Re quested Visits Authorized [id number] 1 1 Encounter Details Date Type Department Care Team (Latest Contact Info) Description 07/20/2017 2:20 PM EST - 07/20/2017 11:59 PM EST Hospital Encounter [place] [phone] Discharge Disposition: Home Social History Tobacco Use [...] 1:30 PM EST Office Visit Cardiology at [address] [phone] Delta Reyes MD [facility] [place] [address] documented as of this encounter Procedures Procedure Name Priority Date/Time Associated Diagnosis Comments POCT GLUCOSE Routine 07/20/2017 11:26 PM EST POCT GLUCOSE Routine 07/20/2017 8:10 PM EST POCT GLUCOSE Routine 07/20/2017 4:18 PM EST ECHO COMPLETE Routine 07/20/2017 3:51 PM EST Unstable angina pectoris documented in this encounter Results * POCT Glucose (07/20/2017 11:26 PM EST) Glucose, POC 120 65 - 199 mg/dL [facility] Comment: Supplemental ranges: <140 mg/dL before meals <180 mg/dL all other times of the day Blood specimen (specimen) 07/20/2017 11:26 PM EST 07/20/2017 11:[address] Stanislav Kahn MD POINT OF CARE TEST O RDERABLES [facility] [place] [address] * POCT Glucose (07/20/2017 8:10 PM EST) Glucose, POC 145 65 - 199 mg/dL [facility] Comment: Supplemental ranges: <140 mg/dL before meals <180 mg/dL all other times of the day Blood specimen (specimen) 07/20/2017 8:10 PM EST 07/20/2017 8:[address] Stanislav Kahn MD POINT OF CARE TEST O RDERADEBI [facility] [place] [address] * POCT Glucose (07/20/2017 4:18 PM EST) Glucose, POC 82 65 - 199 mg/dL [facility] Comment: Supplemental ranges: <140 mg/dL before meals <180 mg/dL all other times of the day Blood specimen (specimen) 07/20/2017 4:18 PM EST 07/20/2017 4:[address] Stanislav Kahn MD POINT OF CARE TEST O JENIFER Performing Organization Address City/[facility]/ZIP Co de Phone Number [facility] [place] [address] documented in this encounter Visit Diagnoses Not on filedocumented in this encounter Care Teams Senior Research Analyst Relationship Specialty Start Date End Date Tang Ling MD [address] [place] [id number] PCP - General General Internal Medicine 07/04/16 documented as of this encounter
--- OUTSIDE RECORDS SUMMARY | 2024-05-02 14:24 | XMS_ITS | Encounter Summary ---
Author Organization [facility] [place] [address] Care Team Providers Care Lamp Shade Maker Name Role Phone Jennifer Ling MD Primary Care Provider [phone] Reason for Visit * Auth/Cert Specialty Diagnoses / Procedures Referred By Contac t Referred To Contact Diagnoses CAD (coronary artery disease) [place] VS ACS Referral ID Status Reason Start Date Expiration Date Visits Re quested Visits Authorized [id number] 1 1 Encounter Details Date Type Department Care Team (Latest Contact Info) Description 07/20/2017 12:39 PM EST - 07/22/2017 5:12 PM EST Hospital Encounter [place] [id number] Forrest Amaya MD [facility] [place] [address] Mal Espinoza MD [facility] [address] Unstable angina pectoris; Chest pain, unspecified type Discharge Disposition: Home [...] Sign Reading Time Taken Comments Blood Pressure 122/49 07/22/2017 2:18 PM EST sta nding Pulse 81 07/22/2017 2:18 PM EST Temperature 36.8 ??C (98.2 ??F) 07/22/2017 6:38 AM ES T Respiratory Rate 21 07/22/2017 9:25 AM EST Oxygen Saturation 99% 07/22/2017 9:25 AM EST Inhaled Oxygen Concentration - - Weight 63.9 kg (140 lb 14 oz) 07/21/2017 6:10 AM EST Height 157.5 cm (5' 2) 07/20/2017 1:19 PM EST Body Mass Index 25.77 07/20/2017 1:19 PM EST documented in this encounter Discharge Summaries * Mal Espinoza MD - 07/22/2017 4:35 PM EST Images from the original note were not included. Discharge Summary Patient Name: Lou Mo Patient Age: 71 y.o. Language: Kittitian Race: White Ethnicity: Not nor Admit date: 07/20/2017 Discharge date and time: 07/22/2017 4:35 PM Attending Physician: Mal Espinoza MD Discharge Physician: Mal Espinoza MD Follow-up Recommendations for Providers: Metoprolol stopped for orthostatic hypotension, this may have been due to dehydration being NPO at 2 different hospitals, restart as an outpatient Thoracic chest film shows multilevel mild degenerative disc disease and spondylosis, as seen on the07/17/[address] Negative nuclear stress test with chest/back pain Negative echocardiogram Ruled out for myocardial infarction Inpatient Provider Contact Information: BALDO PUCKETT, HERBOLOGIST [phone] Discharge Diagnoses (Hospital Problems) and Secondary Diagnoses (Chronic Problems): Active Hospital Problems Diagnosis ??? CAD (coronary artery disease) Resolved Hospital Problems Diagnosis Date Resolved No resolved problems to display. Active Non-Hospital Problems Diagnosis ??? Stress at home Family members living with her and not helping out. She lost her car due to finances. Grandson is borrowing her car. ??? S/P angioplasty with stent ??? Chest pain ??? CIS - Chest Pain ??? CIS - DM ??? CIS - Dyslipidemia ??? CIS - GERD ??? CIS - HTN Operations/Major Procedures: Echo: 07/20/17 SUMMARY: ? 1. Basal septal hypertrophy is observed. ??There is normal global left ventricular systolic function. ??The quantitative left ventricular ejection fraction by biplane Fagan's method is 67%. ??There are no left ventricular segmental wall motion abnormalities. 2. The right ventricle is probably normal in size. ??Right ventricular global systolic function is normal. 3. There is no hemodynamically significant valve disease. 4. See remainder of report for additional findings. Nuclear perfusion rest scan with pain 07/21/17 FINDINGS: A single set of images was performed during the chest pain episode. No fixed or reversible perfusion defects are present. Left ventricular ejection fraction 61.7% ?? IMPRESSION ?? 1. No evidence of myocardial ischemia on this single set of images performed during an episode of chest pain. History of Presentation: 71 Y O F with known ASCVD , s/p PCI in the fall of 2015, repeat cath in July 2016 showing ilene dueñas presents with chest pain x 2 weeks. She had thought the chest pain was secondary to her frequent coughing. She has chest pain with exertion and chest pain sometimes just watching TV. She also reports probable community acquired bronchitis. She has had this 10 day history with shortness of breath with minimal exertion. PCP was seen last week and a CTA was done on Thursday which was negativefor PE/dissection. Soon after the shortness of breath started, started having chest pressure as well. The pain radiates to her back and is rated 4/10 on the pain scale made worse by exertion. She received ASA, Plavix, heparin gtt and nitro gtt. EKG showed borderline ST depressions laterally, otherwise normal sinus rhythm, 119/58, 63HR, 24RR, 93% on 3L. Patient was given Plavix [address] [facility]. The troponin is negative and EKG was unchanged. ?? Hospital Course: Chest pain, back pain The patient's presenting symptom was atypical chest discomfort that was predominantly localized to her back but occasionally was felt in her chest. The patient ruled out for AR with negative troponinx 3. She had no ischemic changes on her ECG and had an echocardiogram which demonstrated normal LV function with no regional wall motion abnormalities despite pain during the study. She also had a nuclear perfusion scan in the setting of her ongoing chest pain which showed no perfusion abnormalities. The area in question on her back was tender to palpation and her pain responded to warm compresses and NSAIDs. Given the atypical nature of her pain and her extensive negative workup, her symptoms were attributed to musculoskeletal etiology. A chest x-ray was performed and showed chronic arthritic changes of her thoracic spine and evidence of degenerative disc disease. The patient did have significant orthostatic hypotension on the day prior to discharge likely as a result of being n.p.o. for her nuclear study while on antihypertensive medications including a beta-amy. Her beta-amy was held and she was rehydrated with IV normal saline. Her symptoms improved and repeat orthostatics were negative. She was able to ambulate on the sorto without dizziness. ? Dyslipidemia The patient continues on Crestor with a lipid panel of: Total cholesterol 156, HDL 40, LDL 100, trig 107. She had normal LFTs. ?? Hypertension The patient's metoprolol was stopped due to orthostatic hypotension. This may need to be restarted as an outpatient at a later date. ? Diabetes The patient's A1c was 5.9 when checked during this admission. Her metformin was held due to NPO status. Sliding scale coverage was used as needed. She resumes her metformin at discharge. ? Functional and Cognitive Status: Alert and oriented x 3, ambulatory-independent, not orthostatic Important Studies and Lab Data: Labs: Lab Results Component Value Date WBC 6.5 07/22/2017 HGB 13.1 07/22/2017 HCT 36.7 07/22/2017 PLATELET 128 (L) 07/22/2017 Recent Labs 07/20/17 1622 INR 1.1 Lab Results Component Value Date NA 144 07/22/2017 K 4.0 07/22/2017 CL 109 (H) 07/22/2017 CO2 22 07/22/2017 BUN 12 07/22/2017 CREATININE 0.92 07/22/2017 Recent Labs 07/20/17 1622 TSH 0.92 Recent Labs 07/20/17 1622 HA1C 5.9* Recent Labs 07/21/17 0452 07/20/17 2011 07/20/17 1622 CK 50 53 48 TROPONINT <0.01 <0.01 <0.01 Lab Results Component Value Date CHLPL 156 07/20/2017 HDL 40 07/20/2017 CHOLHDL 3.9 07/20/2017 TRIG 107 07/20/2017 LDLCHOL 95 07/20/2017 LDLDIRECT 100 (H) 06/11/2013 Pending Studies and Lab Data: None Discharge Conditions/Prognosis: Ambulatory without chest pain Discharge to: Home Updated Allergies/ADRs: Allergies Allergen Reactions ??? Cis Free Text Allergy Hymenoptera (Bee) Stings. ??? Ibuprofen HIVES Immunizations Given this Hospitalization: Immunization History Administered Date(s) Administered ??? Influenza PF, Split (High Dose) 05/29/2016 ??? Influenza Vaccine, Whole 05/29/2008 Discharge Medications: Your Medications Continued medications, unchanged Dose Details aspirin 81 mg Tbec Take 81 mg by mouth daily. 81 mg Refills: 0 clopidogrel 75 mg Tab Commonly known as: PLAVIX Take 1 tablet by mouth daily. 75 mg Quantity: 30 tablet Refills: 11 metFORMIN 1,000 mg Tab Commonly known as: GLUCOPHAGE Take 1,000 mg by mouth 2 times daily (with meals). 1000 mg Refills: 0 nitroGLYcerin 0.4 mg Subl Commonly known as: NITROSTAT Place 1 tablet under the tongue every 5 minutes as needed for Chest pain. 0.4 mg Quantity: 90 tablet Refills: 12 rosuvastatin 40 mg Tab Commonly known as: CRESTOR Take 40 mg by mouth daily. 40 mg Refills: 0 STOPPED Medications ciprofloxacin 250 mg Tab Commonly known as: CIPRO diphenhydrAMINE 25 mg Tab Commonly known as: BENADRYL meTOPROLOL tartrate 50 mg Tab Commonly known as: LOPRESSOR Smoking Status at Discharge: History Smoking Status ??? Never Smoker Smokeless Tobacco ??? Never Used Instructions Given to Patient at Discharge: There are no outpatient Patient Instructions on file for this admission. General Instructions Call your doctor if: Chest pain, shortness of breath, pain or swelling in legs occurs. If you have non-emergent questions between now and the time of your follow up appointments: During 8am-5pm Thursday through Thursday call [phone] to speak with a nurse in the cardiology clinic All other times call [phone] and ask to speak to the rig mechanic director occupational. Return to work: One week Driving: No driving for 48 hours after catheterization. Follow up Appointments: PCP Jennifer Ling MD [phone] July 31, 2017 at 11:[address] Mabry Message left at his office, call to confirm appointment was made, Discharge References/Attachments None Baldo Puckett APRN 07/22/2017 documented in this encounter Discharge Instructions * Discharge Instructions* Baldo Puckett APRN - 07/22/2017 4:35 PM EST Call your doctor if: Chest pain, shortness of breath, pain or swelling in legs occurs. If you have non-emergent questions between now and the time of your follow up appointments: During 8am-5pm Thursday through Thursday call [phone] to speak with a nurse in the cardiology clinic All other times call [phone] and ask to speak to the rig mechanic director occupational. Return to work: One week Driving: No driving for 48 hours after catheterization. Follow up Appointments: PCP Jennifer Ling MD [phone] July 31, 2017 at 11:[address] Mabry Message left at his office, call to confirm appointment was made, documented in this encounter Medications at Time of Discharge Medication Sig Dispensed Refills Start Date End Date nitroGLYcerin (NITROSTAT) 0.4 mg Tablet, Sublingual Place 1 tablet under the tongue every 5 minutes as needed for Chest pain. 90 tablet 12 05/29/2016 aspirin 81 mg EC tablet Take 81 mg by mouth daily. rosuvastatin (CRESTOR) 40 mg tablet Take 40 mg by mouth daily. clopidogrel (PLAVIX) 75 mg Tablet Take 1 tablet by mouth daily. 30 tablet 11 05/29/2016 07/23/2018 metFORMIN (GLUCOPHAGE) 1,000 mg Tablet Take 1,000 mg by mouth 2 times daily (with meals). 07/23/2018 documented as of this encounter Progress Notes * Melissa Mello RN - 07/22/2017 5:12 PM EST Patient has been alert and oriented this shift. VSS. Intermittent reports of chest pain and dizziness with activity. Has been ambulating with SBA on unit. Discharge order acknowledged. IV and telemetry d/cd. AVS printed and provided to patient. AVS and medications reviewed with patient. All questions answered. Pt discharged via wheelchair to main entrance with daughter in stable condition. * Baldo Puckett APRN - 07/22/2017 7:24 AM EST Images from the original note were not included. Inpatient Cardiology Progress Note Patient Name: Lou Mo Service: EMERGENCY PREPAREDNESS COORDINATOR / PA Responsible Attending: Mal Espinoza MD Reason for continued hospitalization: Evaluation and management of chest pain, ruled out for AR Orthostatic vital signs Active Problems: Active Hospital Problems Diagnosis ??? CAD (coronary artery disease) Resolved Hospital Problems Diagnosis Date Resolved No resolved problems to display. Interval History: Patient who has had this back pain for 3 weeks. No odd movements or trauma that she is aware of. Lightheaded again on commode this morning, then back pain starts. She hasn't been out of bed moving. Received IVF overnight. Aware of cardiac testing that has all been negative. Review of Systems: Review of Systems Respiratory: Negative for shortness of breath. Cardiovascular: Negative for chest pain. Musculoskeletal: Positive for back pain. All other systems reviewed and are negative. Telemetry: HR: 51-94 sinus bradycardia, sinus rhythm with multifocal PVCs Meds: Scheduled Meds: ??? rosuvastatin 40 mg Oral QPM ??? insulin lispro 2-8 Units Subcutaneous Q4H ROBERT ??? aspirin 81 mg Oral Daily ??? clopidogrel 75 mg Oral Daily Continuous Infusions: ??? sodium chloride 0.9% 125 mL/hr (07/22/17 0021) ??? nitroGLYcerin Stopped (07/20/172039) PRN Meds:nitroGLYcerin, diphenhydrAMINE, dextrose 50% OR glucagon (human recombinant), acetaminophen Physical Exam: Vital Signs: Last value Range last 24 hrs Temperature Temp: 36.8 ??C (98.2 ??F) Temp: [36.6 ??C (97.9 ??F)-37 ??C (98.6 ??F)] Heart Rate Heart Rate: 63 Heart Rate: [49-75] Blood Pressure BP: 129/54 BP: (67-129)/(24-62) Respiratory Rate Resp: 14 Resp: [4-28] SpO2 SpO2: 99 % SpO2: [94 %-99 %] Physical Exam Constitutional: She is oriented to person, place, and time. She appears well- developed and well-nourished. No distress. HENT: Head: Normocephalic and atraumatic. Eyes: Right eye exhibits no discharge. Left eye exhibits no discharge. Neck: Normal range of motion. Neck supple. Cardiovascular: Normal rate, regular rhythm, normal heart sounds and intact distal pulses. Exam reveals no gallop and no friction rub. No murmur heard. Pulmonary/Chest: Effort normal and breath sounds normal. No respiratory distress. She has no wheezes. She has no rales. Abdominal: Soft. Bowel sounds are normal. She exhibits no distension. There is no tenderness. Musculoskeletal: Normal range of motion. She exhibits tenderness (on back in the location of her pain the past few weeks). She exhibits no edema. Neurological: She is alert and oriented to person, place, and time. Skin: Skin is warm and dry. She is not diaphoretic. Psychiatric: She has a normal mood and affect. Her behavior is normal. Nursing note and vitals reviewed. Lab Comments: Recent Labs 07/22/17 0354 07/21/17 0452 07/20/17 1622 WBC 6.5 5.8 5.4 HGB 13.1 13.2 12.6 HCT 36.7 37.7 36.9 PLATELET 128* 130* 124* Recent Labs 07/20/17 1622 INR 1.1 Recent Labs 07/22/17 0354 07/21/17 0452 07/20/17 1622 NA 144 139 142 K 4.0 3.8 3.9 CL 109* 104 106 CO2 22 26 26 BUN 12 13 12 CREATININE 0.92 0.90 0.92 Recent Labs 07/20/17 1622 AST 17 ALT 11 ALKPHOS 51 BILITOT 0.5 BILIDIR 0.1 Recent Labs 07/22/17 0354 07/21/17 0452 07/20/17 1622 CALCIUM 8.8 9.1 8.9 MAGNESIUM -- -- 0.83 Recent Labs 07/21/17 0452 07/20/17201007/20/17 1622 CK 50 53 48 TROPONINT <0.01 <0.01 <0.01 Pertinent Radiographic/Diagnostic Results: I have independently visualized the following studies: ECG: HR 61 sinus rhythm with no acute changes Echo: 07/20/17 SUMMARY: ?? 1. Basal septal hypertrophy is observed. There is normal global left ventricular systolic function.The quantitative left ventricular ejection fraction by biplane Fagan's method is 67%. There are no left ventricular segmental wall motion abnormalities. 2. The right ventricle is probably normal in size. Right ventricular global systolic function is normal. 3. There is no hemodynamically significant valve disease. 4. See remainder of report for additional findings. Nuclear stress test 07/21/17 FINDINGS: A single set of images was performed during the chest pain episode. No fixed or reversible perfusion defects are present. Left ventricular ejection fraction 61.7% ?? IMPRESSION ?? 1. No evidence of myocardial ischemia on this single set of images performed during an episode of chest pain.?? Assessment: Lou Mo is a 71 y.o. female who has ruled out for AR with negative cardiac enzymes x3. Echo shows normal EF and no wall motion abnormality. Stress test done with chest pain showed no perfusion defect. Positive orthostatic vital signs yesterday, received IVF overnight. This morn ing, lightheadedness persists when moving from laying, sitting to standing. Will get thoracic x rayto assess for compression fracture. Plan: Chest pain at rest, predominate back pain mid spine Ruled out for AR Echocardiogram with no WMA, normal function Resting nuclear scan today given back pain showed no perfusion defect with her back pain Continue asa, plavix, and nitro Trial of toradol this mornin Orthostatic hypotension IVF given overnight, SBP at rest improved No longer orthostatic but still lightheaded with position change ?? Dyslipidemia Continue Crestor TC 156, HDL 40, LDL 100, trig 107 Normal LFTs ?? HTN Continue metoprolol SBP 60-120s ?? Diabetes Hold metformin Sliding scale coverage as needed ?? Discussed with Mal Espinoza MD Janette Stender, PATTY 07/22/2017 Associated attestation - Mal Espinoza MD - 07/22/2017 5:53 PM EST Cardiology Attending Note I interviewed and examined the patient during comprehensive bedside rounds. I concur with the summary of interval events, active hospital-focused problem list and plan of care as described in the note below. I personally reviewed the medications, laboratory results, treatment decisions and updated the patient. This is a 71-year-old woman with a history of ASCVD status post PCI to the mid LAD (05/2016) admitted with atypical chest pain over the past couple of weeks. Her troponin has been negative ??3 sets with CK in the 40s. ECG shows no acute ischemic changes and there are no regional wall motion and hernuclear imaging performed in the context of chest discomfort showed no perfusion abnormalities. Her predominant symptom this morning is back pain localized to just under her right scapula. This was tender to palpation on my exam, and she reports this re- created her pain. I agree with conservative therapies for this including warm compresses and Tylenol or NSAIDs. I think would also be reasonable to check an x-ray to rule out the possibility of a rib or T-spine vertebral compression fracture. Orthostatic hypotension seems to have resolved with IV fluids and holding her beta-amy. Mal Espinoza MD, FACP, FACC Section of Cardiovascular Medicine [facility] [employer] Operatorpillowcase sewer [facility] [employer] [facility] [place] This patient meets or has met medical criteria to require an inpatient level of care, i.e. a minimum of two midnights in the hospital with multiple complex problems. * Alexei Rivera RN - 07/21/2017 4:07 PM EST 07/21/17 1600 07/21/17 1603 07/21/17 1605 Adult Vital Signs Temp 36.7 ??C (98.1 ??F) -- -- Temp Source Oral -- -- Heart Rate from SPO2 64 bpm 68 bpm 74 bpm Heart Rate 65 64 75 Heart Rate Source Monitor -- -- BP 122/49 (laying) 103/46 (sitting) (!) 67/24 (standing) MAP (NBP) 66 mmHg 59 mmHg 34 mmHg BP Method Automatic -- -- BP Location (NBP) Right arm -- -- Cardiac Rhythm NSR -- -- Resp 23 13 14 SpO2 97 % 98 % 98 % Visual Checks Awake;In bed -- -- * Alexei Rivera RN - 07/21/2017 12:28 PM EST Pt complaining of 8/10 CP after standing and pivoting to commode. Nitro given SL x3 with no relief.After 3rd SL nitro, BP dropped to 80's. 500ml of fluid given. No relief of pain. Still complaining of 2/10 CP. Baldo at bedside. Assessing patient. Call down to stress test. Nuc Stress RN at bedside for dye. Down for testing. Images negative. Orthostatic Blood pressures positive. See note. BS 76- orange juice given. NSR/SB on tele. Variable MI interval- variable 1st deg AVB. Rare PAC's. HR 50's-70's. * Baldo Puckett APRN - 07/21/2017 11:29 AM EST Images from the original note were not included. Inpatient Cardiology Progress Note Patient Name: Lou Mo Service: EMERGENCY PREPAREDNESS COORDINATOR / PA Responsible Attending: Mal Espinoza MD Reason for continued hospitalization: Evaluation and management of chest pain, ruled out for AR Awaiting nuclear stress test Active Problems: Active Hospital Problems Diagnosis ??? CAD (coronary artery disease) Resolved Hospital Problems Diagnosis Date Resolved No resolved problems to display. Interval History: Patient with chest and back pain in equal measure. Back more painful this morning. Aware that her cardiac enzymes were negative. Stress test for later today. Review of Systems: Review of Systems Constitutional: My goiter surgery is postponed from last year after I got my stents. Respiratory: Negative for shortness of breath. Cardiovascular: Positive for chest pain (02/09 when up to the commode). All other systems reviewed and are negative. Telemetry: HR: 60-85 sinus rhythm with no events Meds: Scheduled Meds: ??? rosuvastatin 40 mg Oral QPM ??? insulin lispro 2-8 Units Subcutaneous Q4H ROBERT ??? aspirin 81 mg Oral Daily ??? clopidogrel 75 mg Oral Daily ??? meTOPROLOL tartrate 25 mg Oral BID Continuous Infusions: ??? nitroGLYcerin Stopped (07/20/172039) PRN Meds:nitroGLYcerin, diphenhydrAMINE, dextrose 50% OR glucagon (human recombinant), acetaminophen Physical Exam: Vital Signs: Last value Range last 24 hrs Temperature Temp: 37 ??C (98.6 ??F) Temp: [36.6 ??C (97.9 ??F)-37 ??C (98.6 ??F)] Heart Rate Heart Rate: 62 Heart Rate: [56-65] Blood Pressure BP: 118/49 BP: (100-132)/(46-62) Respiratory Rate Resp: 22 Resp: [12-22] SpO2 SpO2: 97 % SpO2: [95 %-98 %] Physical Exam Constitutional: She is oriented to person, place, and time. She appears well- developed and well-nourished. No distress. HENT: Head: Normocephalic and atraumatic. Eyes: Right eye exhibits no discharge. Left eye exhibits no discharge. Neck: Normal range of motion. Neck supple. Cardiovascular: Normal rate, regular rhythm, normal heart sounds and intact distal pulses. Exam reveals no gallop and no friction rub. No murmur heard. Pulmonary/Chest: Effort normal and breath sounds normal. No respiratory distress. She has no wheezes. She has no rales. Abdominal: Soft. Bowel sounds are normal. She exhibits no distension. There is no tenderness. Musculoskeletal: Normal range of motion. She exhibits no edema. Neurological: She is alert and oriented to person, place, and time. Skin: Skin is warm and dry. She is not diaphoretic. Psychiatric: She has a normal mood and affect. Her behavior is normal. Nursing note and vitals reviewed. Lab Comments: Recent Labs 07/21/17 0452 07/20/17 1622 WBC 5.8 5.4 HGB 13.2 12.6 HCT 37.7 36.9 PLATELET 130* 124* Recent Labs 07/20/17 1622 INR 1.1 Recent Labs 07/21/17 0452 07/20/17 1622 NA 139 142 K 3.8 3.9 CL 104 106 CO2 26 26 BUN 13 12 CREATININE 0.90 0.92 Recent Labs 07/20/17 1622 AST 17 ALT 11 ALKPHOS 51 BILITOT 0.5 BILIDIR 0.1 Recent Labs 07/21/17 0452 07/20/17 1622 CALCIUM 9.1 8.9 MAGNESIUM -- 0.83 Recent Labs 07/21/17 0452 07/20/17201007/20/17 1622 CK 50 53 48 TROPONINT <0.01 <0.01 <0.01 Pertinent Radiographic/Diagnostic Results: I have independently visualized the following studies: ECG: HR 56 with no acute changes Echo: 07/20/17 SUMMARY: ?? 1. Basal septal hypertrophy is observed. There is normal global left ventricular systolic function.The quantitative left ventricular ejection fraction by biplane Fagan's method is 67%. There are no left ventricular segmental wall motion abnormalities. 2. The right ventricle is probably normal in size. Right ventricular global systolic function is normal. 3. There is no hemodynamically significant valve disease. 4. See remainder of report for additional findings. ?? Assessment: Lou Mo is a 71 y.o. female who has ruled out for AR with negative cardiac enzymes x3. Echo shows normal EF and no wall motion abnormality. Dizziness, lightheadedness reported when sitting on the commode then 7/10 back pain started. ECG without change. SBP down to the 80s withsl nitroglycerin. Will give IV bolus. Resting perfusion scan given her ongoing back pain. Plan: 1. Chest pain at rest Ruled out for AR Echocardiogram with no WMA, normal function Resting nuclear scan today given back pain Continue asa, plavix, and nitro ?? 2. Dyslipidemia Continue Crestor TC 156, HDL 40, LDL 100, trig 107 Normal LFTs ?? 3. HTN Continue metoprolol SBP 80-110s ?? 4. Diabetes Hold metformin Sliding scale coverage as needed ?? 5. Full Code Discussed with Mal Espinoza MD Baldo Puckett, HERBOLOGIST 07/21/2017 Associated attestation - Mal Espinoza MD - 07/21/2017 4:32 PM EST Cardiology Attending Note I interviewed and examined the patient during comprehensive bedside rounds. I concur with the summary of interval events, active hospital-focused problem list and plan of care as described in the note below. I personally reviewed the medications, laboratory results, treatment decisions and updated the patient. This is a 71-year-old woman with a history of ASCVD status post PCI to the mid LAD (05/2016) admitted with atypical chest pain over the past couple of weeks transferred from an outside facility on a heparin infusion and nitroglycerin infusion. Her cardiac enzymes have been negative now ??3 sets. Troponin is negative with CK in the 40s. ECG shows no acute ischemic changes and there are no regionalwall motion abnormalities on her echocardiogram despite discomfort at rest. We were able to wean off the nitroglycerin drip overnight. She was pain- free on examination this morning, but developed recurrent atypical chest/back discomfort later in the day. ECG in the setting of pain had no ischemic changes. As she was having pain at rest, we sent her for nuclear imaging while she was having active pain. Awaiting results. Mal Espinoza MD, FACP, FACC Section of Cardiovascular Medicine [facility] [employer] [facility] [employer] [facility] [employer] [facility] at [facility] [place] This patient meets or has met medical criteria to require an inpatient level of care, i.e. a minimum of two midnights in the hospital with multiple complex problems. * Kevin Pruett RN - 07/20/2017 4:22 PM EST Patient BS 82. Team made aware. Patient given orange juice, NPO lifted, diet orders placed. dentures lab technician tomorrow. * Kevin Pruett RN - 07/20/2017 1:27 PM EST Patient admitted to room, transferred on bedding from stretcher to bed. Vitals WDL, tele in NS. Nitro running at 15 mcg/min, IV fluids at 125 mL/hr. Patient oriented to room and call jaimes. Family at bedside. PA Simona Hope at bedside. documented in this encounter H&P Notes * Simona Hope PA - 07/20/2017 2:14 PM EST Images from the original note were not included. Cardiology Admission H&P Patient Name: Lou Mo Date of : 1945 Age: 71 y.o. Hospital Admit Date: 07/20/2017 Inpatient Attending: aMl Espinoza MD PCP: Jennifer Ling MD Presenting Diagnosis/Chief Complaint: chest pain x 2 weeks, sometimes with coughing, sometimes withexertion, sometimes at rest she will have chest pain in the center of her chest, patient is awaiting thyroid surgery in the future per her report Active Problem List: Active Hospital Problems Diagnosis ??? CAD (coronary artery disease) Resolved Hospital Problems Diagnosis Date Resolved No resolved problems to display. History of Present Illness: HPI 71 Y O F with known ASCVD , s/p PCI in the fall of 2015, repeat cath in July 2016 showing stentjanis dueñas presents with chest pain x 2 weeks. She had thought the chest pain was secondary to her frequent coughing. She has chest pain with exertion and chest pain sometimes just watching TV. She also reports probable community acquired bronchitis. She has had this 10 day history with shortness of breath with minimal exertion. PCP was seen last week and a CTA was done on Thursday which was negativefor PE/dissection. Soon after the shortness of breath started, started having chest pressure as well. The pain radiates to her back and is rated 4/10 on the pain scale made worse by exertion. She received ASA, Plavix, heparin gtt and nitro gtt. EKG showed borderline ST depressions laterally, otherwise normal sinus rhythm, 119/58, 63HR, 24RR, 93% on 3L. Patient was given Plavix [address] [facility]. The troponin is negative and EKG was unchanged. Most recent Cardiac Cath was July 2016: Hemodynamics: Left Heart Pressures Resting: Syst Diast EDP a v m Ao 123 54 83 LV 125 16 ? Coronary Angiography: Dominance: Right ? Left Main There was mild diffuse disease of the entire vessel segment of the left main artery. ? Left Anterior Descending There was mild diffuse disease of the entire vessel segment of the left anterior descending artery (LAD). The previously placed stent is patent. The proximal segment of the LAD had a single discrete 40% stenosis. ? There was a 10% stenosis of the ostial segment of the first diagonal branch (Diagonal 1) of the LAD. The previously placed stent is patent. ? Left Circumflex There was mild diffuse disease of the entire vessel segment of the left circumflex artery (LCX). ? Right Coronary Artery There was mild diffuse disease of the entire vessel segment of the right coronary artery (RCA). ? Intravascular Imaging/Physiology: Instantaneous wave-free ratio (iFR) was determined across the 40% stenosis in the proximal LAD using a 6 Fr EBU 3.5 guiding catheter and a Verrata wire. Wire delivery was successful. The IFR across the 40% proximal LAD lesion was 0.98. This lesion was not hemodynamically significant. Lesions are generally considered to be hemodynamically significant if the iFR is less than or equal to 0.85, and are considered to be indeterminate in the range from 0.86 to 0.93. ? Instantaneous wave-free ratio (iFR) was determined across the 10% stenosis in the ostial D1 using a 6 Fr EBU 3.5 guiding catheter and a Verrata wire. Wire delivery was successful. The IFR across the 10% ostial D1 lesion was 0.94. This lesion was not hemodynamically significant. Lesions are generally considered to be hemodynamically significant if the iFR is less than or equal to 0.85, and are considered to be indeterminate in the range from 0.86 to 0.93. ? Fractional flow reserve was performed to assess the 40% stenosis in the proximal LAD using a 6 Fr EBU 3.5 guiding catheter and a Verrata wire. Adenosine 140 mcg/kg/min intravenous infusion was administered. Wire delivery was successful. The FFR across the 40% proximal LAD lesion was 0.92. This lesion was not hemodynamically significant. Lesions are considered to be hemodynamically significant if the FFR is less than 0.80. ? Vascular Access: Vascular Access Angiogram: A selective angiogram at the right femoral artery revealed no significant obstructive disease. A closure device is contraindicated due to the sheath insertion site located at the bifurcation of this vessel. ? Vascular Access Management: Manual Compression of the right femoral artery access site was performed. ? Conclusions: * Nonobstructive coronary artery disease * No interval change in anatomy Echo 07/2016 SUMMARY: ?? 1. The left ventricular chamber size is normal. There is concentric remodeling and basal septal hypertrophy. There is no evidence of LVOT obstruction. There is normal global left ventricular systolic function. Ejection fraction is estimated to be 65%. There are no left ventricular segmental wall motion abnormalities. The left ventricular diastolic filling pattern is consistent with impaired LV relaxation. 2. The left atrium is normal in size.(15 ml/m2) 3. The right ventricle is probably normal in size. Right ventricular global systolic function is normal. Pulmonary artery hypertension could not be assessed due to inadequate tricuspid regurgitation jet. 4. Mild (1+/4+) aortic valve regurgitation is present. 5. There is mild (1+/4+) mitral regurgitation present Past Medical History: Past Medical History: Diagnosis Date ??? Allergic state ??? Cataract ??? Diabetes mellitus 1996 Type 2 NIDDM, dx 1996 ??? Dyslipidemia ??? GERD (gastroesophageal reflux disease) ??? Hyperlipidemia ??? Hypertension ??? Thyroid disease thyroid nodule has been biopsied and is benign Surgical History/Problems: Past Surgical History: Procedure Laterality Date ??? CARDIAC CATHERIZATION ??? CORONARY ANGIOPLASTY Significant Family History: Family History Problem Relation Age of Onset ??? Coronary Artery Disease Mother ??? Macular Degeneration Mother ??? Cataracts Mother ??? Glaucoma Maternal Aunt ??? Macular Degeneration Maternal Aunt ??? Amblyopia Neg Hx ??? Strabismus Neg Hx ??? Retinal Detachment Neg Hx Social History: Social History Social History ??? Marital status: Spouse name: N/A ??? Number of children: N/A ??? Years of education: N/A Occupational History ??? retired [employer] work Social History Main Topics ??? Smoking status: Never Smoker ??? Smokeless tobacco: Never Used ??? Alcohol use No Comment: social ??? Drug use: No ??? Sexual activity: Not Currently Other Topics Concern ??? Not on file Social History Narrative REVIEW OF SYSTEMS: Review of Systems Constitutional: Negative. HENT: Negative. Respiratory: Positive for chest tightness and shortness of breath. Cardiovascular: Positive for chest pain. Endocrine: Negative. Genitourinary: Negative. Allergic/Immunologic: Negative. Neurological: Negative. Hematological: Negative. Medications: Prescriptions Prior to Admission Medication Sig Dispense Refill Last Dose ??? ciprofloxacin (CIPRO) 250 mg Tablet Take 1 tablet by mouth 2 times daily. 20 tablet 0 ??? clopidogrel (PLAVIX) 75 mg Tablet Take 1 tablet by mouth daily. 30 tablet 11 07/04/2016 at Unknown time ??? nitroGLYcerin (NITROSTAT) 0.4 mg Tablet, Sublingual Place 1 tablet under the tongue every 5 minutes as needed for Chest pain. 90 tablet 12 07/04/2016 at Unknown time ??? metFORMIN (GLUCOPHAGE) 1,000 mg Tablet Take 1,000 mg by mouth 2 times daily (with meals). 07/04/2016 at Unknown time ??? aspirin 81 mg EC tablet Take 81 mg by mouth daily. 07/04/2016 at Unknown time ??? metoprolol tartrate (LOPRESSOR) 50 mg tablet Take 50 mg by mouth 2 times daily. 07/04/2016 at Unknown time ??? rosuvastatin (CRESTOR) 40 mg tablet Take 40 mg by mouth daily. 07/04/2016 at Unknown time ??? diphenhydrAMINE (BENADRYL) 25 mg tablet Take 25 mg by mouth nightly as needed. 07/03/2016 at Unknown time Allergies: Allergies Allergen Reactions ??? Cis Free Text Allergy Hymenoptera (Bee) Stings. ??? Ibuprofen HIVES PHYSICAL EXAM: Last set of vital signs: BP 129/62 (BP Location (NBP): Left arm) Pulse 59 Temp 36.6 ??C (97.9 ??F) (Oral) Resp 17 Ht 157.5 cm (5' 2) Wt 64.4 kg (141 lb 15.6 oz) SpO2 96% BMI 25.97 kg/m2 Physical Exam Constitutional: She is oriented to person, place, and time. She appears well- developed and well-nourished. No distress. HENT: Head: Normocephalic and atraumatic. Eyes: Pupils are equal, round, and reactive to light. No scleral icterus. Neck: No JVD present. Cardiovascular: Normal rate, regular rhythm, S1 normal and S2 normal. Exam reveals no gallop and nofriction rub. Murmur heard. Pulmonary/Chest: No respiratory distress. She has no wheezes. She has no rales. Abdominal: She exhibits no distension. There is no tenderness. There is no rebound. Musculoskeletal: She exhibits no edema, tenderness or deformity. Neurological: She is alert and oriented to person, place, and time. Skin: Skin is warm and dry. She is not diaphoretic. Psychiatric: She has a normal mood and affect. Her behavior is normal. Diagnostics: ECHO: LABS: No results found for this or any previous visit (from the past 24 hour(s)). ASSESSMENT: 71 Y O F with known ASCVD , s/p PCI in the fall of 2015, repeat cath in July 2016 showing stent was fine presents with chest pain x 2 weeks. She had thought the chest pain was secondary to her frequent coughing. She has chest pain with exertion and chest pain sometimes just watchingTV. She also reports probable community acquired bronchitis. Stable. TREATMENT PLAN: 1. Chest pain at rest Admit to [facility] for telemetry monitoring Heparin gtt Nitro gtt Echocardiogram Cardiac catheterization vs nuclear stress test Serial biomarkers Cardiac rehab Continue asa, plavix, and nitro 2. Dyslipidemia Continue crestor Check lipids and LFTs 3. HTN Continue metoprolol Monitor trends 4. Diabetes Hold metformin Sliding scale coverage 5. Full Code Patient seen and discussed with Dr. Espinoza. ANALI Kirby 07/20/2017 Provider: ANALI JULES Pager [phone] 07/20/2017 Associated attestation - Mal Espinoza MD - 07/20/2017 9:34 PM EST Cardiology Attending Note I interviewed and examined the patient during comprehensive bedside rounds. I concur with the summary of interval events, active hospital-focused problem list and plan of care as described in the note below. I personally reviewed the medications, laboratory results, treatment decisions and updated the patient. This is a 71-year-old woman with a history of ASCVD status post PCI to the mid LAD (05/2016) admitted with atypical chest pain over the past couple of weeks transferred from an outside facility on a heparin infusion and nitroglycerin infusion. Her cardiac enzymes have been negative now ??3 sets. Troponin is negative with CK in the 40s. ECG shows no acute ischemic changes and there are no regionalwall motion abnormalities on her echocardiogram despite discomfort at rest. Overnight, we will try to wean her nitroglycerin infusion. Plan for nuclear stress test in the morning. Mal Espinoza MD, FACP, FACC Section of Cardiovascular Medicine [facility] [employer] [facility] [employer] [facility] at [facility] [place] This patient meets or has met medical criteria to require an inpatient level of care, i.e. a minimum of two midnights in the hospital with multiple complex problems. documented in this encounter Miscellaneous Notes * Consult Note - Aleena Kaufman RN - 07/22/2017 8:20 AM EST Lou Mo has been referred to Cardiac Rehab. At this time, she does not have a Medicare qualifying diagnosis for outpatient cardiac rehab. * Plan of Care - Joycelyn Combs RN - 07/22/2017 6:24 AM EST Problem: Patient Care Overview Goal: Plan of Care Review Outcome: Ongoing (Interventions Implemented as Appropriate) 07/22/17 0609 Coping/Psychosocial Plan Of Care Reviewed With patient Plan of Care Review Progress progress toward functional goals is gradual OUTCOME EVALUATION NOTE: OUTCOME SUMMARY: No events overnight. Patient ambulated to commode. Fluids continued. Denies pain. Daughter in room with patient. PLAN MOVING FORWARD: Early discharge INDIVIDUALIZED FALL PREVENTION INTERVENTIONS: Patient-specific fall risk factors per assessment: [current deficits]: Orthostatic hypotension, wires, Assistance [level of assistance required for transfers and ambulation]: SBA Supervision [direct monitoring required during toileting and ADLs]: Call light in reach, rings appropriately Surveillance [continuous indirect monitoring]: Telemetry, SpO2 CPG GOAL OUTCOME EVALUATION: Goal: Fall Prevention-Safe Patient Handling Outcome: Outcome (s) achieved Date Met: 07/22/17 07/20/17 1557 07/21/17 0436 07/21/171999 Musculoskeletal Interventions Muscle Strengthening mobility in bed promoted -- -- Activity and Safety Assistive Device -- None -- Daily Care Interventions Self-Care Promotion -- -- independence encouraged;BADL personal objects within reach Positioning Body Position -- -- independent [place] Toro Fall Risk History of Falling -- -- 25 Secondary Diagnosis -- -- 15 Ambulatory Aids -- -- 15 Intravenous Therapy/Heparin/Saline Lock -- -- 0 Gait/Transferring -- -- 10 Mental Status -- -- 0 Score -- -- 65 OTHER [place] Toro Fall Risk -- -- Med Restraint Interventions Safety Promotion/Fall Prevention -- -- activity supervised;nonskid shoes/slippers when out of bed;safety round/check completed;fall prevention program maintained * Initial Assessments - [place]ennifer Segura MSW - 07/21/2017 8:07 AM EST Office of Care Management Initial Assessment RADHA Rocha reviewed record and discussed patient with Care Team. Source of Information: Patient, Chart, Treatment Team, spencer Dougherty Introduced self/reviewed role; services accepted. Reason for Hospitalization: Reason for Admission as Stated by Patient: chest pains 71-year-old woman with a history of ASCVD status post PCI to the mid LAD (05/2016) admitted with atypical chest pain over the past couple of weeks transferred from an outside facility on a heparin infusion and nitroglycerin infusion. Past Medical History: Diagnosis Date ??? Allergic state ??? Cataract ??? Diabetes mellitus 1996 Type 2 NIDDM, dx 1996 ??? Dyslipidemia ??? GERD (gastroesophageal reflux disease) ??? Hyperlipidemia ??? Hypertension ??? Thyroid disease thyroid nodule has been biopsied and is benign Hospitalizations Within the Past 30 Days: none Anticipated Length Of Stay (If known): 3 days Current Decision-Making Capacity: A&Ox4 Advance Care Planning: yes with PCP- Jennifer Ling MD...names daughter Ladonna Current Coping/Education/Information Needs: none Current Functional Ability: Independent in all ADL's Functional Status Prior to Admission: Independent in all ADL's Home Environment: Single floor living with ramp Social & Family Supports/Community Resources: Daughter and HORTENCIA, son, grandchildren, family, friends Behavioral Health History: depression treated successfully by meds Substance Use/Abuse: none Other Pertinent/Service Specific Information: Thyroid surgery postponed Health/Prescription Coverage: Primary Insurance: MEDICARE Secondary Insurance[facility] Prescription Coverage: yes Preferred Pharmacy: [facility]. Other: none Primary Care Provider: Jennifer Ling MD [phone] Patient/Caregiver Goals of Treatment: Get out of here, get back to work and have no pain Potential Needs for Transition of Care: Rehab/SNF:NA Home Health: Only one VNA in [place] DME: none Dialysis: na Community Resources: available Transportation: Yes- daughter Other: none Anticipated Barriers to Discharge/Special Considerations: none Plan: Home with follow up and perhaps VNA A member of the Care Management team will continue to monitor progress, follow for continuity of care and assist with transition of care planning. RADHA Rocha Pager: [phone] * Plan of Care - Joycelyn Combs RN - 07/21/2017 4:45 AM EST Problem: Patient Care Overview Goal: Plan of Care Review Outcome: Ongoing (Interventions Implemented as Appropriate) OUTCOME EVALUATION NOTE: OUTCOME SUMMARY: Beginning of shift patient reported having CP while ambulating from Bathroom. Pain resolved by the time RN was notified. Patient then reported feeling dizzy, laid flat. VSS (see vital flowchart). Nitro titrated off. Bedside commode ordered for patient. Tylenol given for headache. So far patient hascomplained of no further CP. Cardiac Enzymes trending. Heparin gtt titrated per protocol. PLAN MOVING FORWARD: dentures lab technician today INDIVIDUALIZED FALL PREVENTION INTERVENTIONS: Patient-specific fall risk factors per assessment: [current deficits]: IVs, wires, multiple diagnosis Assistance [level of assistance required for transfers and ambulation]: SBA Supervision [direct monitoring required during toileting and ADLs]: Rings call light appropriately Surveillance [continuous indirect monitoring]: Call light in reach CPG GOAL OUTCOME EVALUATION: Goal: Fall Prevention-Safe Patient Handling Outcome: Ongoing (Interventions Implemented as Appropriate) 07/20/17 1557 07/20/17199907/21/17 0436 Musculoskeletal Interventions Muscle Strengthening mobility in bed promoted -- -- Activity and Safety Assistive Device -- -- None Positioning Body Position -- -- independent Del Toro Fall Risk History of Falling -- 25 -- Secondary Diagnosis -- 15 -- Ambulatory Aids -- 0 -- Intravenous Therapy/Heparin/Saline Lock -- 20 -- Gait/Transferring -- 10 -- Mental Status -- 0 -- Score -- 70 -- OTHER [place] Toro Fall Risk -- Med -- Restraint Interventions Safety Promotion/Fall Prevention -- activity supervised;nonskid shoes/slippers when out of bed;safety round/check completed;fall prevention program maintained -- Goal: Infection Control Outcome: Ongoing (Interventions Implemented as Appropriate) 07/20/171999 Safety Interventions Isolation Precautions standard precautions maintained Infection Prevention equipment surfaces disinfected;personal protective equipment utilized;rest/sleep promoted;single patient room provided Coping Strategies Supportive Measures active listening utilized;goal setting facilitated;self- reflection promoted;self-responsibility promoted;verbalization of feelings encouraged * Plan of Care - Kevin Purett RN - 07/20/2017 4:07 PM EST Problem: Patient Care Overview Goal: Plan of Care Review 07/20/171556 Coping/Psychosocial Plan Of Care Reviewed With patient;family Plan of Care Review Progress no change OUTCOME EVALUATION NOTE: OUTCOME SUMMARY: VSS, telemetry stable in NS. Nitro running at 15 mcg/min, heparin initiated at 750 units/hr. Ordersstill in process by team. Patient currently NPO. No complaint of chest pain at this time. BP holding at 120s systolic. PLAN MOVING FORWARD: dentures lab technician--possibly today, more likely tomorrow INDIVIDUALIZED FALL PREVENTION INTERVENTIONS: Patient-specific fall risk factors per assessment: [current deficits]: Telemetry wires, IVs infusing, unfamiliar environment Assistance [level of assistance required for transfers and ambulation]: SBA Supervision [direct monitoring required during toileting and ADLs]: SBA Surveillance [continuous indirect monitoring]: Telemetry, hourly rounding, rings appropriately Patient-specific fall prevention interventions for sensory deficits provided, if applicable: [X] N/A CPG GOAL OUTCOME EVALUATION: Goal: Fall Prevention-Safe Patient Handling 07/20/17 1300 07/20/17 1303 07/20/17 155 Musculoskeletal Interventions Muscle Strengthening -- -- mobility in bed promoted Activity and Safety Assistive Device -- -- None Daily Care Interventions Self-Care Promotion -- -- independence encouraged;BADL personal objects within reach Del Toro Fall Risk History of Falling -- 0 -- Secondary Diagnosis -- 15 -- Ambulatory Aids -- 0 -- Intravenous Therapy/Heparin/Saline Lock -- 20 -- Gait/Transferring -- 0 -- Mental Status -- 0 -- Score -- 35 -- OTHER [place] Toro Fall Risk -- Med -- Restraint Interventions Safety Promotion/Fall Prevention activity supervised;nonskid shoes/slippers when out of bed;safety round/check completed -- -- Positioning Body Position -- independent -- Goal: Infection Control 07/20/17 1300 07/20/17 155 Safety Interventions Isolation Precautions -- standard precautions maintained Infection Prevention environmental surveillance performed;rest/sleep promoted;single patient room provided -- Coping Strategies Supportive Measures -- active listening utilized;relaxation techniques promoted;self-care encouraged;verbalization of feelings encouraged Goal: Discharge Needs Assessment 07/20/17 1557 Discharge Needs Assessment Concerns To Be Addressed denies needs/concerns at this time Readmission Within The Last 30 Days no previous admission in last 30 days Discharge Disposition still a patient Living Environment Transportation Available family or friend will provide Goal: Interdisciplinary Rounds/Family Conf 07/20/17 1557 Interdisciplinary Rounds/Family Conf Participants nursing;patient;family;physician documented in this encounter Plan of Treatment Upcoming Encounters Date Type Department Care Team (Late st Contact Info) Description 07/06/2024 1:30 PM EST Office Visit Cardiology at [address] [id number] Delta Reyes MD [facility] [place] [address] documented as of this encounter Procedures Procedure Name Priority Date/Time Associated Diagnosis Comments POLICY ISSUE CLERK SCAN 07/23/2017 12:00 AM EST POCT GLUCOSE Routine 07/22/2017 11:58 AM EST XR THORACIC SPINE 2 VIEWS Routine 07/22/2017 11:03 AM EST POCT GLUCOSE Routine 07/22/2017 8:05 AM EST EKG 12-LEAD Routine 07/22/2017 7:36 AM EST Unstable angina pectoris POCT GLUCOSE Routine 07/22/2017 6:49 AM EST POCT GLUCOSE Routine 07/22/2017 4:19 AM EST BMP W/FASTING GLUCOSE Routine 07/22/2017 3:54 AM EST HEMOGRAM Routine 07/22/2017 3:54 AM EST DIFFERENTIAL, AUTOMATED Routine 07/22/2017 3:54 AM EST CBC (WITH DIFF) Routine 07/22/2017 3:54 AM EST POCT GLUCOSE Routine 07/22/2017 12:38 AM EST POCT GLUCOSE Routine 07/21/2017 7:52 PM EST POCT GLUCOSE Routine 07/21/2017 4:46 PM EST NM MYOCARDIAL PERFUSION REST Routine 07/21/2017 2:17 PM EST NM PHARMACOLOGIC STRESS CT COMPONENT Routine 07/21/2017 2:00 PM EST POCT GLUCOSE Routine 07/21/2017 11:45 AM EST EKG 12-LEAD STAT 07/21/2017 11:17 AM EST Chest pain, unspecified type POCT GLUCOSE Routine 07/21/2017 7:45 AM EST EKG 12-LEAD Routine 07/21/2017 7:37 AM EST Unstable angina pectoris BMP W/FASTING GLUCOSE Routine 07/21/2017 4:52 AM EST HEMOGRAM Routine 07/21/2017 4:52 AM EST DIFFERENTIAL, AUTOMATED Routine 07/21/2017 4:52 AM EST CARDIAC ENZYMES ([facility]) Routine 07/21/2017 4:52 AM EST APTT STAT 07/21/2017 4:52 AM EST CBC (WITH DIFF) Routine 07/21/2017 4:52 AM EST LIPASE Routine 07/21/2017 4:52 AM EST AMYLASE Routine 07/21/2017 4:52 AM EST POCT GLUCOSE Routine 07/21/2017 3:36 AM EST APTT Routine 07/20/2017 10:30 PM EST CARDIAC ENZYMES ([facility]) Routine 07/20/2017 8:11 PM EST BMP W/FASTING GLUCOSE Routine 07/20/2017 4:22 PM EST HEMOGRAM Routine 07/20/2017 4:22 PM EST DIFFERENTIAL, AUTOMATED Routine 07/20/2017 4:22 PM EST CARDIAC ENZYMES ([facility]) Routine 07/20/2017 4:22 PM EST APTT STAT 07/20/2017 4:22 PM EST PROTHROMBIN TIME Routine 07/20/2017 4:22 PM EST CBC (WITH DIFF) Routine 07/20/2017 4:22 PM EST TSH Routine 07/20/2017 4:22 PM EST PRO-BRAIN NATRIURETIC PEPTIDE STAT 07/20/2017 4:22 PM EST MAGNESIUM Routine 07/20/2017 4:22 PM EST HEMOGLOBIN A1C Routine 07/20/2017 4:22 PM EST HEPATIC FUNCTION PANEL Routine 7 4:22 PM EST LIPID PANEL (REFLEX DIRECT LDL) Routine 07/20/2017 4:22 PM EST ECHO COMPLETE Routine 07/20/2017 3:51 PM EST Unstable angina pectoris EKG 12-LEAD Routine 07/20/2017 2:34 PM EST Unstable angina pectoris documented in this encounter Results * SCAN DOC: POLICY ISSUE CLERK (07/23/2017 12:00 AM EST) Anatomical Region Laterality Modality Other Narrative 07/23/2017 12:00 AM EST Ordered by an unspecified provider. Scanning Provider MEDIA MGR SCAN EXT O RDR/RSLT * POCT Glucose (07/22/2017 11:58 AM EST) Glucose, POC 103 65 - 199 mg/dL [facility] Comment: Supplemental ranges: <140 mg/dL before meals <180 mg/dL all other times of the day Blood specimen (specimen) 07/22/2017 11:58 AM EST 07/22/2017 11:58 AM EST Mal Espinoza MD POINT OF CARE TEST ORDERABLES Performing Organization Address City/State/[facility] Co de Phone Number [facility] [place] [address] * XR Thoracic Spine 2 views (07/22/2017 11:03 AM EST) Anatomical Region Laterality Modality N/A Digital Radiogra phy Impressions 07/22/2017 11:48 AM EST 1. ??No acute osseous abnormality identified on plain film radiography. In the clinical setting of persistent pain, consider MRI for further evaluation. 2. ??Multilevel mild degenerative disc disease and spondylosis, as seen on the 07/17/[address] 3. ??Eleven thoracic rib-bearing vertebrae. Narrative 07/22/2017 11:48 AM EST EXAMINATION: XR THORACIC SPINE 2 VIEWS CLINICAL HISTORY: mid back pain for the past 3 weeks, non cardiac in origin, rule out compression fracture other greg issue TECHNIQUE: AP and lateral radiographs of the thoracic spine. COMPARISON: AP and lateral radiographs of the thoracic spine 06/11/2013; outside institution CT chest 07/17/2017. FINDINGS: Eleven rib bearing thoracic vertebrae are reidentified. The upper most portion of the thoracic spine is suboptimally visualized on the lateral view due to a combination of radiographic technique and overlapping soft tissues. No subluxation is seen. Thoracic vertebral body height is maintained. There is multilevel mild degenerative disc disease and spondylosis, greatest at the mid and lower levels. No destructive osseous lesion is seen. The visualized paravertebral soft tissues are unremarkable. Moderate calcified atherosclerosis of the imaged proximal abdominal aorta is again noted without visualized aneurysmal dilatation. Procedure Note Susana Trevino MD - 07/22/2017 EXAMINATION: XR THORACIC SPINE 2 VIEWS CLINICAL HISTORY: mid back pain for the past 3 weeks, non cardiac inorigin, rule out compression fracture other greg issue TECHNIQUE: AP and lateral radiographs of the thoracic spine. COMPARISON: AP and lateral radiographs of the thoracic spine 06/11/2013; outsideinstitution CT chest 07/17/2017. FINDINGS: Eleven rib bearing thoracic vertebrae are reidentified. The upper mostportion of the thoracic spine is suboptimally visualized on the lateral view dueto a combination of radiographic technique and overlapping soft tissues. No subluxation is seen. Thoracic vertebral body height is maintained. Thereis multilevel mild degenerative disc disease and spondylosis, greatest at themid and lower levels. No destructive osseous lesion is seen. The visualized paravertebral soft tissues are unremarkable. Moderate calcifiedatherosclerosis of the imaged proximal abdominal aorta is again noted without visualized aneurysmal dilatation. IMPRESSION 1. No acute osseous abnormality identified on plain film radiography. Inthe clinical setting of persistent pain, consider MRI for furtherevaluation. 2. Multilevel mild degenerative disc disease and spondylosis, as seen onthe 07/17/[address] 3. Eleven thoracic rib-bearing vertebrae. Baldo Puckett APRN IMG DX ORDERABLES * POCT Glucose (07/22/2017 8:05 AM EST) Glucose, POC 124 65 - 199 mg/dL [facility] Comment: Supplemental ranges: <140 mg/dL before meals <180 mg/dL all other times of the day Blood specimen (specimen) 07/22/2017 8:05 AM EST 07/22/2017 8:05 AM EST Mal Espinoza MD POINT OF CARE TEST ORDERABLES [facility] [place] [address] * EKG 12 Lead (07/22/2017 7:36 AM EST) Ventricular rate 61 BPM MUSE SYSTEM Atrial Rate 61 BPM MUSE SYSTEM P-R Interval 190 ms MUSE SYSTEM QRS Duration 82 ms MUSE SYSTEM Q-T Interval 408 ms MUSE SYSTEM QTC Calculated (Bezet) 410 ms MUSE SYSTEM Calculated P [place] 16 degrees MUSE SYSTEM Calculated R [place] -28 degrees MUSE SYSTEM Calculated T [place] 16 degrees MUSE SYSTEM INTERPRETATION Normal sinus rhythm Normal ECG When compared with ECG of 21-JUL-2017 11:17, No significant change was found Confirmed by MD Jennifer, Gideon ([id number]) on 07/22/2017 3:45:47 PM MUSE SYSTEM 07/22/2017 7:36 AM EST 07/22/2017 3:45 PM EST Mal Espinoza MD ECG ORDERABLES Performing Organization Address [facility] Co de Phone Number MUSE SYSTEM * POCT Glucose (07/22/2017 6:49 AM EST) Glucose, POC 100 65 - 199 mg/dL [facility] Comment: Supplemental ranges: <140 mg/dL before meals <180 mg/dL all other times of the day Blood specimen (specimen) 07/22/2017 6:49 AM EST 07/22/2017 6:49 AM EST Mal Espinoza MD POINT OF CARE TEST ORDERABLES Performing Organization Address [facility] Co de Phone Number [facility] [place] [address] * POCT Glucose (07/22/2017 4:19 AM EST) Glucose, POC 96 65 - 199 mg/dL [facility] Comment: Supplemental ranges: <140 mg/dL before meals <180 mg/dL all other times of the day Blood specimen (specimen) 07/22/2017 4:19 AM EST 07/22/2017 4:19 AM EST Mal Espinoza MD POINT OF CARE TEST ORDERABLES [facility] [place] [address] * Differential, Automated (07/22/2017 3:54 AM EST) Pathologist [facility] Neutrophil % 60.5 % [facility] Neutrophil Absolute 3.95 1.70 - 6.10 x10(3)/[facility] Lymph % 26.7 % [facility] Lymphocytes Abs 1.7 0.9 - 3.2 x10(3)/[facility] Monocyte % 7.8 % [facility] Monocyte Abs 0.5 0.3 - 0.9 x10(3)/[facility] Eos % 4.0 % [facility] Eosinophils Abs 0.3 0.0 - 0.4 x10(3)/[facility] Basophil % 0.5 % [facility] Baso Absolute 0.0 0.0 - 0.1 x10(3)/[facility] Immature Gran % 0.50 % [facility] Comment: Immature granulocytes(IG's)percentage and absolute count will include metamyelocytes, myelocytes, and promyelocytes. Blood smears from CBCs yielding IG's will be scanned manually for concordance. If this scan disagrees with the automated IG or if promyelocytes are noted, a manual differential will be performed. Immature Gran Absolute 0.03 0.00 - 0.04 x10(3)/[facility] Blood specimen (specimen) 07/22/2017 3:54 AM EST 07/22/2017 4:25 AM EST Narrative Resulting Agency Comment Spec In Lab Mal Espinoza MD HEMATOLOGY ORDERAB LES Performing Organization Address City/[facility]/ZIP Co de Phone Number [facility] [place] [address] * (ABNORMAL) Hemogram (07/22/2017 3:54 AM EST) White Blood Cell 6.5 4.0 - 9.5 x10(3)/ L [facility] Red Blood Cell 4.18 4.00 - 5.21 x10(6)/ L [facility] Hemoglobin 13.1 11.7 - 15.5 gm/dL [facility] Hematocrit 36.7 35.7 - 45.8 % [facility] Mean Cell Volume 87.8 82.6 - 94.4 fL [facility] Mean Cell Hemoglobin 31.3 27.1 - 32.0 pg [facility] Mean Cell Hemoglobin Concentration 35.7(H) 31.7 - 35.0 gm/dL [facility] Platelet 128(L) 145 - 357 x10(3)/ L [facility] RDW Standard Deviation 41.1 37.0 - 46.0 [facility] RDW coefficient of variation 12.8 11.5 - 14.1 % [facility] Mean Platelet Volume 10.3 7.6 - 12.9 [facility]ATORY NRBC% auto 0.0 % [facility] NRBC Absolute 0.000 0.000 - 0.000 x10(3)/[facility] [place] [facility] Blood specimen (specimen) 07/22/2017 3:54 AM EST 07/22/2017 4:25 AM EST Narrative Resulting Agency Comment Spec In Lab Mal Espinoza MD HEMATOLOGY ORDERAB LES [facility] [place] [address] * (ABNORMAL) BMP w/fasting Glucose (07/22/2017 3:54 AM EST) Glucose Fasting 104(H) 65 - 99 mg/dL [facility] Comment: ?Fasting* Glucose Interpretive Criteria [...] of Diabetes Mellitus, Position Statement from the [employer] Diabetes [employer]. ??Diabetes Care, Volume 33, Supplement 1, Aug 2009 Blood Urea Nitrogen 12 8 - 18 mg/dL [facility] Creatinine 0.92 0.70 - 1.20 mg/dL [facility] Sodium 144 135 - 145 mmol/L [facility] Potassium 4.0 3.5 - 5.0 mmol/L [facility] Comment: Please note: ??Patients with WBC >100,000 may have falsely elevated Potassium levels. ??For accurate Potassium quantification in these patients send serum separator tube (gold top) for subsequent determinations. ??Contact the Clinical Chemistry Laboratory if there are any questions. Chloride 109(H) 98 - 107 mmol/L [facility] Carbon Dioxide 22 22 - 31 mmol/L [facility] Anion Gap 13 5 - 15 mmol/L [facility] Calcium 8.8 8.5 - 10.5 mg/dL [facility] Est Glomerular Filtration Rate 60 >=60 [facility] Comment: The reported eGFR should be multiplied by 1.2 for patients. The MDRD is not an appropriate measure of renal function for patients with body mass extremes or in patients with acute kidney failure. http://[email or web address].Gynzy/DHnkdep http://Axial.com/DHMCnkf Blood specimen (specimen) 07/22/2017 3:54 AM EST 07/22/2017 4:25 AM EST Narrative Resulting Agency Comment Spec In Lab Mal Espinoza MD CHEMISTRY ORDERABL ES [facility] [place] [address] * POCT Glucose (07/22/2017 12:38 AM EST) Glucose, POC 105 65 - 199 mg/dL [facility] Comment: Supplemental ranges: <140 mg/dL before meals <180 mg/dL all other times of the day Blood specimen (specimen) 07/22/2017 12:38 AM EST 07/22/2017 12:38 AM EST Mal Espinoza MD POINT OF CARE TEST ORDERABLES [facility] [place] [address] * POCT Glucose (07/21/2017 7:52 PM EST) Glucose, POC 149 65 - 199 mg/dL [facility] Comment: Supplemental ranges: <140 mg/dL before meals <180 mg/dL all other times of the day Blood specimen (specimen) 07/21/2017 7:52 PM EST 07/21/2017 7:52 PM EST Mal Espinoza MD POINT OF CARE TEST ORDERABLES [facility] [place] [address] * POCT Glucose (07/21/2017 4:46 PM EST) Glucose, POC 76 65 - 199 mg/dL [facility] Comment: Supplemental ranges: <140 mg/dL before meals <180 mg/dL all other times of the day Blood specimen (specimen) 07/21/2017 4:46 PM EST 07/21/2017 4:46 PM EST Mal Espinoza MD POINT OF CARE TEST ORDERABLES [facility] [place] [address] * NM Myocardial Perfusion Rest (07/21/2017 2:17 PM EST) Anatomical Region Laterality Modality Nuclear Medicine Impressions 07/21/2017 3:01 PM EST 1. No evidence of myocardial ischemia on this single set of images performed during an episode of chest pain. Narrative 07/21/2017 3:01 PM EST EXAMINATION: NM MYOCARDIAL PERFUSION REST CLINICAL HISTORY: chest pain, ruled out for AR, hx of stent in 2015 TECHNIQUE: A single set of images with attenuation correction was performed during an episode of chest pain. ??35.5 MCi of technetium-99m sestamibi were then administered intravenously and the patient was exercised for 1 1/2 additional minutes. Images of the heart were obtained with SPECT reconstruction. A low-dose of CT scan was acquired for the purpose of attenuation correction and reviewed with Dr. Van rosenberg for incidental findings. COMPARISON: None FINDINGS: A single set of images was performed during the chest pain episode. No fixed or reversible perfusion defects are present. ??Left ventricular ejection fraction 61.7% Procedure Note Michele Byrd MD - 07/21/2017 EXAMINATION: NM MYOCARDIAL PERFUSION REST CLINICAL HISTORY: chest pain, ruled out for AR, hx of stent in 2015 TECHNIQUE: A single set of images with attenuation correction wasperformed during an episode of chest pain. 35.5 MCi of technetium-99m sestamibiwere then administered intravenously and the patient was exercised for 1 1/2additional minutes. Images of the heart were obtained with SPECT reconstruction. A low-dose of CT scan was acquired for the purpose of attenuationcorrection and reviewed with Dr. Van rosenberg for incidental findings. COMPARISON: None FINDINGS: A single set of images was performed during the chest painepisode. No fixed or reversible perfusion defects are present. Left ventricularejection fraction 61.7% IMPRESSION 1. No evidence of myocardial ischemia on this single set of imagesperformed during an episode of chest pain. Baldo Puckett HERBOLOGIST [facility] NM ORDERABLES * NM Pharmacologic Stress CT Component (07/21/2017 2:00 PM EST) Anatomical Region Laterality Modality Nuclear Medicine Narrative 07/21/2017 2:51 PM EST EXAMINATION: NM PHARMACOLOGIC STRESS CT COMPONENT CLINICAL HISTORY: Chest pain TECHNIQUE: A limited field of view, non-contrast, non-breath hold, low dose CT scan of the region surrounding the myocardium was performed for the purpose of attenuation correction of the myocardial perfusion scan. COMPARISON: None INCIDENTAL CT FINDINGS: Coronary and aortic calcifications. Please note the Nuclear Medicine portion of this exam is reported separately. Procedure Note Van Rosenberg MD - 07/21/2017 EXAMINATION: NM PHARMACOLOGIC STRESS CT COMPONENT CLINICAL HISTORY: Chest pain TECHNIQUE: A limited field of view, non-contrast, non-breath hold, lowdose CT scan of the region surrounding the myocardium was performed for thepurpose of attenuation correction of the myocardial perfusion scan. COMPARISON: None INCIDENTAL CT FINDINGS: Coronary and aortic calcifications. Please note the Nuclear Medicine portion of this exam is reportedseparately. Baldo Puckett APRN IMG NM ORDERABLES * POCT Glucose (07/21/2017 11:45 AM EST) Pathologist [facility] Glucose, POC 109 65 - 199 mg/dL [facility] Comment: Supplemental ranges: <140 mg/dL before meals <180 mg/dL all other times of the day Blood specimen (specimen) 07/21/2017 11:45 AM EST 07/21/2017 11:45 AM EST Mal Espinoza MD POINT OF CARE TEST ORDERABLES [facility] [place] [address] * EKG 12 Lead (07/21/2017 11:17 AM EST) Ventricular rate 53 BPM MUSE SYSTEM Atrial Rate 53 BPM MUSE SYSTEM P-R Interval 192 ms MUSE SYSTEM QRS Duration 86 ms MUSE SYSTEM Q-T Interval 428 ms MUSE SYSTEM QTC Calculated (Bezet) 401 ms MUSE SYSTEM Calculated P [place] 11 degrees MUSE SYSTEM Calculated R [place] -22 degrees MUSE SYSTEM Calculated T [place] 22 degrees MUSE SYSTEM INTERPRETATION Sinus bradycardia Otherwise normal ECG When compared with ECG of 21-JUL-2017 07:37, (unconfirmed) No significant change was found Confirmed by MD Rodriguez Jon ([id number]) on 07/21/2017 4:16:02 PM MUSE SYSTEM 07/21/2017 11:1 7 AM EST 07/21/2017 4:16 PM EST Baldo Puckett HERBOLOGIST ECG ORDERABLES Performing Organization Address City/[facility]/ZIP Co de Phone Number MUSE SYSTEM * POCT Glucose (07/21/2017 7:45 AM EST) Glucose, POC 146 65 - 199 mg/dL [facility] Comment: Supplemental ranges: <140 mg/dL before meals <180 mg/dL all other times of the day Blood specimen (specimen) 07/21/2017 7:45 AM EST 07/21/2017 7:45 AM EST Mal Espinoza MD POINT OF CARE TEST ORDERABLES Performing Organization Address City/[facility]/ZIP Co de Phone Number [facility] [place] [address] * EKG 12 Lead (07/21/2017 7:37 AM EST) Ventricular rate 57 BPM MUSE SYSTEM Atrial Rate 57 BPM MUSE SYSTEM P-R Interval 182 ms MUSE SYSTEM QRS Duration 88 ms MUSE SYSTEM Q-T Interval 424 ms MUSE SYSTEM QTC Calculated (Bezet) 412 ms MUSE SYSTEM Calculated P [place] 4 degrees MUSE SYSTEM Calculated R [place] -22 degrees MUSE SYSTEM Calculated T [place] 28 degrees MUSE SYSTEM INTERPRETATION Sinus bradycardia Otherwise normal ECG When compared with ECG of 20-JUL-2017 14:34, No significant change was found Confirmed by MD YUSUF, ZUHAIR ([id number]) on 07/21/2017 1:21:27 PM MUSE SYSTEM 07/21/2017 7:37 AM EST 07/21/2017 1:21 PM EST Mal Espinoza MD ECG ORDERABLES Performing Organization Address [facility] Phone Number MUSE SYSTEM * Lipase (07/21/2017 4:52 AM EST) Lipase 36 0 - 60 unit/L [facility] Blood specimen (specimen) Venous Draw / Unknown 07/21/2017 4:52 AM EST 07/21/2017 5:10 AM EST Narrative Resulting Agency Comment Spec In Lab Mal Espinoza MD CHEMISTRY ORDERABL ES Performing Organization Address [facility] de Phone Number [facility] [place] [address] * Amylase (07/21/2017 4:52 AM EST) Amylase 41 28 - 100 unit/L [facility] Blood specimen (specimen) Venous Draw / Unknown 07/21/2017 4:52 AM EST 07/21/2017 5:10 AM EST Narrative Resulting Agency Comment Spec In Lab Mal Espinoza MD CHEMISTRY ORDERABL ES Performing Organization Address [facility] Phone Number [facility] [place] [address] * (ABNORMAL) APTT (07/21/2017 4:52 AM EST) Partial Thromboplastin Time >160.0(Cr itical) 25 - 35 [facility] Comment: Called by: [facility], Read back by: delphine ramirez, Date/Time:07/21/17 05:49. The recommended therapeutic range for full dose, unfractionated heparin at [facility] is 80 ? 114 seconds. The use of the anti-Xa (heparin) level rather than the PTT is recommended for monitoring anticoagulation intensity in critically ill patients receiving unfractionated heparin by continuous IV infusion. Blood specimen (specimen) 07/21/2017 4:52 AM EST 07/21/2017 5:00 AM EST Narrative Resulting Agency Comment Spec In Lab Mal Espinoza MD HEMATOLOGY ORDERAB LES Performing Organization Address City/[facility]/ZIP Co de Phone Number [facility] [place] [address] * Differential, Automated (07/21/2017 4:52 AM EST) Neutrophil % 53.4 % [facility] Neutrophil Absolute 3.11 1.70 - 6.10 x10(3)/[facility] Lymph % 33.2 % [facility] Lymphocytes Abs 1.9 0.9 - 3.2 x10(3)/[facility] Monocyte % 8.6 % [facility] Monocyte Abs 0.5 0.3 - 0.9 x10(3)/[facility] Eos % 3.6 % [facility] Eosinophils Abs 0.2 0.0 - 0.4 x10(3)/[facility] Basophil % 0.9 % [facility] Baso Absolute 0.0 0.0 - 0.1 x10(3)/[facility] Immature Gran % 0.30 % [facility] Comment: Immature granulocytes(IG's)percentage and absolute count will include metamyelocytes, myelocytes, and promyelocytes. Blood smears from CBCs yielding IG's will be scanned manually for concordance. If this scan disagrees with the automated IG or if promyelocytes are noted, a manual differential will be performed. Immature Gran Absolute 0.02 0.00 - 0.04 x10(3)/[facility] Blood specimen (specimen) 07/21/2017 4:52 AM EST 07/21/2017 5:00 AM EST Narrative Resulting Agency Comment Spec In Lab Mal Espinoza MD HEMATOLOGY ORDERAB LES Performing Organization Address City/[facility]/ZIP Co de Phone Number [facility] [place] [address] * (ABNORMAL) Hemogram (07/21/2017 4:52 AM EST) White Blood Cell 5.8 4.0 - 9.5 x10(3)/ L [facility] Red Blood Cell 4.30 4.00 - 5.21 x10(6)/ L [facility] Hemoglobin 13.2 11.7 - 15.5 gm/dL [facility] Hematocrit 37.7 35.7 - 45.8 % [facility] Mean Cell Volume 87.7 82.6 - 94.4 fL [facility] Mean Cell Hemoglobin 30.7 27.1 - 32.0 pg [facility] Mean Cell Hemoglobin Concentration 35.0 31.7 - 35.0 gm/dL [facility] Platelet 130(L) 145 - 357 x10(3)/[facility] [place] [facility] LABORATORY RDW Standard Deviation 41.6 37.0 - 46.0 [facility]ATORY RDW coefficient of variation 13.1 11.5 - 14.1 % [facility] Mean Platelet Volume 10.2 7.6 - 12.9 fL [facility] NRBC% auto 0.0 % [facility] NRBC Absolute 0.000 0.000 - 0.000 x10(3)/[facility] [place] [facility] Blood specimen (specimen) 07/21/2017 4:52 AM EST 07/21/2017 5:00 AM EST Narrative Resulting Agency Comment Spec In Lab Mal Espinoza MD HEMATOLOGY ORDERAB LES [facility] [place] [address] * (ABNORMAL) BMP w/fasting Glucose (07/21/2017 4:52 AM EST) Glucose Fasting 128(H) 65 - 99 mg/dL [facility] Comment: ?Fasting* Glucose Interpretive Criteria [...] of Diabetes Mellitus, Position Statement from the [employer] Diabetes [employer]. ??Diabetes Care, Volume 33, Supplement 1, Aug 2009 Blood Urea Nitrogen 13 8 - 18 mg/dL [facility] Creatinine 0.90 0.70 - 1.20 mg/dL [facility] Sodium 139 135 - 145 mmol/L [facility] Potassium 3.8 3.5 - 5.0 mmol/L [facility] Comment: Please note: ??Patients with WBC >100,000 may have falsely elevated Potassium levels. ??For accurate Potassium quantification in these patients send serum separator tube (gold top) for subsequent determinations. ??Contact the Clinical Chemistry Laboratory if there are any questions. Chloride 104 98 - 107 mmol/L [facility] Carbon Dioxide 26 22 - 31 mmol/L [facility] Anion Gap 9 5 - 15 mmol/L [facility] Calcium 9.1 8.5 - 10.5 mg/dL [facility] Est Glomerular Filtration Rate >60 >=60 [facility] Comment: The reported eGFR should be multiplied by 1.2 for patients. The MDRD is not an appropriate measure of renal function for patients with body mass extremes or in patients with acute kidney failure. http://Axial.Gynzy/DHnkdep [email or web address]://Axial.Gynzy/DHMCnkf Blood specimen (specimen) 07/21/2017 4:52 AM EST 07/21/2017 5:00 AM EST Narrative Resulting Agency Comment Spec In Lab Mal Espinoza MD CHEMISTRY ORDERABL ES Performing Organization Address [facility]/ZIP Co de Phone Number [facility] [place] [address] * Cardiac Enzymes (LEB/CGP) (07/21/2017 4:52 AM EST) [facility] Troponin-T <0.01 0.00 - 0.00 ng/mL [facility] Comment: The 99th percentile for Troponin T is less than 0.01 ng/mL, any detectable cTnT concentration using this assay should be considered elevated. According to the third universal definition of myocardial infarction the following criteria with a clinical presentation consistent with acute myocardial ischemia meets the diagnosis for a myocardial infarction (AR). Detection of a rise and/or fall of cTnT, with at least one value greater than the 99th percentile (> or = 0.01) and with at least one of the following ?? Symptoms of ischemia ?? New or presumed new significant TB-dtyhmhp-A wave (ST-T) changes or new left bundle branch block (LBBB) ?? Development of pathologic Q waves in the ECG ?? Imaging evidence of new loss of viable myocardium or new regional wall motion abnormality ?? Identification of an intracoronary thrombus by angiography or autopsy Samples for cTnT testing should be obtained serially upon first assessment and again 3 to 6 hours later. If the clinical suspicion is high and previous samples have been negative an additional sample may be indicated. Reference: Third [place] Definition of Myocardial Infarction. Journal of the Canadian College of Cardiology 2012;60:1581-98 Creatine Kinase 50 0 - 160 unit/L [facility] Blood specimen (specimen) 07/21/2017 4:52 AM EST 07/21/2017 5:01 AM EST Narrative Resulting Agency Comment Spec In Lab Mal Espinoza MD CHEMISTRY ORDERABL ES Performing Organization Address [facility]/ZIP Co de Phone Number [facility] [place] [address] * POCT Glucose (07/21/2017 3:36 AM EST) [facility] Glucose, POC 128 65 - 199 mg/dL [facility] Comment: Supplemental ranges: <140 mg/dL before meals <180 mg/dL all other times of the day Blood specimen (specimen) 07/21/2017 3:36 AM EST 07/21/2017 3:36 AM EST Mal Espinoza MD POINT OF CARE TEST ORDERABLES Performing Organization Address [facility] de Phone Number [facility] [place] [address] * (ABNORMAL) APTT (07/20/2017 10:30 PM EST) Partial Thromboplastin Time 55(H) 25 - 35 sec [facility] Comment: The recommended therapeutic range for full dose, unfractionated heparin at [facility] is 80 ? 114 seconds. The use of the anti-Xa (heparin) level rather than the PTT is recommended for monitoring anticoagulation intensity in critically ill patients receiving unfractionated heparin by continuous IV infusion. Blood specimen (specimen) 07/20/2017 10:30 PM EST 07/20/2017 10:41 PM EST Narrative Resulting Agency Comment Spec In Lab Mal Espinoza MD HEMATOLOGY ORDERAB LES Performing Organization Address [facility] Phone Number [facility] [place] [address] * Cardiac Enzymes (LEB/CGP) (07/20/2017 8:11 PM EST) [facility] Troponin-T <0.01 0.00 - 0.00 ng/mL [facility] Comment: The 99th percentile for Troponin T is less than 0.01 ng/mL, any detectable cTnT concentration using this assay should be considered elevated. According to the third universal definition of myocardial infarction the following criteria with a clinical presentation consistent with acute myocardial ischemia meets the diagnosis for a myocardial infarction (AR). Detection of a rise and/or fall of cTnT, with at least one value greater than the 99th percentile (> or = 0.01) and with at least one of the following ?? Symptoms of ischemia ?? New or presumed new significant EY-ogsuugx-O wave (ST-T) changes or new left bundle branch block (LBBB) ?? Development of pathologic Q waves in the ECG ?? Imaging evidence of new loss of viable myocardium or new regional wall motion abnormality ?? Identification of an intracoronary thrombus by angiography or autopsy Samples for cTnT testing should be obtained serially upon first assessment and again 3 to 6 hours later. If the clinical suspicion is high and previous samples have been negative an additional sample may be indicated. Reference: Third [place] Definition of Myocardial Infarction. Journal of the Canadian College of Cardiology 2012;60:1581-98 Creatine Kinase 53 0 - 160 unit/L [facility] Blood specimen (specimen) 07/20/2017 8:11 PM EST 07/20/2017 8:15 PM EST Narrative Resulting Agency Comment Spec In Lab Mal Espinoza MD CHEMISTRY ORDERABL ES Performing Organization Address [facility] Phone Number [facility] [place] [address] * Magnesium (07/20/2017 4:22 PM EST) Magnesium 0.83 0.69 - 1.07 mmol/L [facility] Blood specimen (specimen) 07/20/2017 4:22 PM EST 07/20/2017 4:32 PM EST Narrative Resulting Agency Comment Spec In Lab Mal Espinoza MD CHEMISTRY ORDERABL ES Performing Organization Address [facility] Phone Number [facility] [place] [address] * (ABNORMAL) pro-Brain Natriuretic Peptide (07/20/2017 4:22 PM EST) NT-proBNP 376(H) <=125 pg/mL [facility] Blood specimen (specimen) 07/20/2017 4:22 PM EST 07/20/2017 4:32 PM EST Narrative Resulting Agency Comment Spec In Lab Mal Espinoza MD CHEMISTRY ORDERABL ES [facility] [place] [address] * Hepatic Function Panel (07/20/2017 4:22 PM EST) Pathologist [facility] Protein, Total 6.1 6.1 - 8.0 gm/dL [facility] Albumin 3.6 3.2 - 5.2 gm/dL [facility] Aspartate Aminotransferase 17 0 - 30 unit/L [facility] Alanine Aminotransferase 11 0 - 30 unit/L [facility] Alkaline Phosphatase 51 40 - 104 unit/L [facility] Bilirubin, Total 0.5 0.2 - 1.3 mg/dL [facility] Bilirubin, Direct 0.1 0.0 - 0.3 mg/dL [facility] Blood specimen (specimen) 07/20/2017 4:22 PM EST 07/20/2017 4:32 PM EST Narrative Resulting Agency Comment Spec In Lab Mal Espinoza MD CHEMISTRY ORDERABL ES [facility] [place] [address] * Lipid Panel (07/20/2017 4:22 PM EST) [facility] Cholesterol, Total 156 <=239 mg/dL [facility] Triglyceride 107 <=199 mg/dL [facility] HDL Cholesterol 40 >=40 mg/dL [facility] LDL Cholesterol 95 <=190 mg/dL [facility] Cholesterol/HDL Ratio 3.9 ratio [facility] Lipid Interpretation See Note [facility] Comment: Lipid management should be guided by a patient? s ASCVD risk, goals and preferences. ACC/AHA Guidelines recommend high intensity statin if clinical ASCVD or LDL greater than or equal to 190 mg/dL. http://Fluid Entertainmenturl.com/KVR-SIE-Hldxtovob Adults aged 40-75 with LDL 70-189 mg/dL should have their 10 year ASCVD risk estimated with the ACC/AHA ASCVD risk counterintelligence/humint specialist http://tools.acc.org/YCPNI-Wgtz-Nkllqqxmm/ Statin should be discussed if risk greater [...] critical component of ASCVD risk reduction. Blood specimen (specimen) 07/20/2017 4:22 PM EST 07/20/2017 4:32 PM EST Narrative Resulting Agency Comment Spec In Lab Mal Espinoza MD CHEMISTRY ORDERABL ES Performing Organization Address [facility]/ZIP Co de Phone Number [facility] [place] [address] * TSH (07/20/2017 4:22 PM EST) Thyroid Stimulating Hormone 0.92 0.27 - 4.20 mlU/ML [facility] Blood specimen (specimen) 07/20/2017 4:22 PM EST 07/20/2017 4:32 PM EST Narrative Resulting Agency Comment Spec In Lab Mal Espinoza MD CHEMISTRY ORDERABL ES Performing Organization Address City/[facility]/ZIP Co de Phone Number [facility] [place] [address] * (ABNORMAL) Hemoglobin A1c (07/20/2017 4:22 PM EST) Hemoglobin A1c 5.9(H) 4.3 - 5.6 % [facility] Comment: Reference Range: 4.3 - 5.6% 5.7 - 6.4% - Increased Risk of Developing Diabetes Mellitus >=6.5% - Consistent with diagnosis of Diabetes Mellitus In the absence of hyperglycemia (i.e. plasma glucose > 200 mg/dL) or classic symptoms of hyperglycemia a repeat measurement of HbA1c should be performed on a separate sample to confirm the diagnosis. Diagnosis and Classification of Diabetes Mellitus, Diabetes Care 2013; 36: Suppl. 1, W37-54 Estimated Average Glucose See note mg/dL [facility] Comment: Estimated Average Glucose not [...] into estimated average glucose values. ??Diabetes Care 2008:31(8):2268-3973. Blood specimen (specimen) 07/20/2017 4:22 PM EST 07/20/2017 4:32 PM EST Narrative Resulting Agency Comment Spec In Lab Mal Espinoza MD CHEMISTRY ORDERABL ES [facility] [place] [address] * Prothrombin Time (07/20/2017 4:22 PM EST) Prothrombin Time 14.0 11.8 - 14.0 sec [facility] International Normalization Ratio 1.1 0.9 - 1.1 [facility] Comment: An INR <2.0 indicates adequate procoagulant activity for hemostasis in most patients without underlying bleeding disorders, though the INR may not adequately reflect hemostatic capacity in patients with liver disease and synthetic impairment. The recommended target INR range for therapeutic anticoagulation is 2.0 ? 3.0 for most applications, though lower and higher ranges may be appropriate depending on clinical circumstances. Blood specimen (specimen) 07/20/2017 4:22 PM EST 07/20/2017 4:33 PM EST Narrative Resulting Agency Comment Spec In Lab Mal Espinoza MD HEMATOLOGY ORDERAB LES [facility] [place] [address] * Differential, Automated (07/20/2017 4:22 PM EST) Neutrophil % 67.9 % [facility] Neutrophil Absolute 3.67 1.70 - 6.10 x10(3)/[facility] Lymph % 20.6 % [facility] Lymphocytes Abs 1.1 0.9 - 3.2 x10(3)/[facility] Monocyte % 7.8 % [facility] Monocyte Abs 0.4 0.3 - 0.9 x10(3)/[facility] Eos % 2.8 % [facility] Eosinophils Abs 0.2 0.0 - 0.4 x10(3)/[facility] Basophil % 0.7 % [facility] Baso Absolute 0.0 0.0 - 0.1 x10(3)/[facility] Immature Gran % 0.20 % [facility] Comment: Immature granulocytes(IG's)percentage and absolute count will include metamyelocytes, myelocytes, and promyelocytes. Blood smears from CBCs yielding IG's will be scanned manually for concordance. If this scan disagrees with the automated IG or if promyelocytes are noted, a manual differential will be performed. Immature Gran Absolute 0.01 0.00 - 0.04 x10(3)/[facility] Blood specimen (specimen) 07/20/2017 4:22 PM EST 07/20/2017 4:32 PM EST Narrative Resulting Agency Comment Spec In Lab Mal Espinoza MD HEMATOLOGY ORDERAB LES [facility] [place] [address] * (ABNORMAL) Hemogram (07/20/2017 4:22 PM EST) White Blood Cell 5.4 4.0 - 9.5 x10(3)/[facility] [place] [facility] Red Blood Cell 4.08 4.00 - 5.21 x10(6)/[facility] [place] [facility] Hemoglobin 12.6 11.7 - 15.5 gm/dL [facility] Hematocrit 36.9 35.7 - 45.8 % [facility] Mean Cell Volume 90.4 82.6 - 94.4 fL [facility] Mean Cell Hemoglobin 30.9 27.1 - 32.0 pg [facility] Mean Cell Hemoglobin Concentration 34.1 31.7 - 35.0 gm/dL [facility] Platelet 124(L) 145 - 357 x10(3)/ L [facility] RDW Standard Deviation 42.7 37.0 - 46.0 [facility] RDW coefficient of variation 13.0 11.5 - 14.1 % [facility] Mean Platelet Volume 10.0 7.6 - 12.9 fL [facility] NRBC% auto 0.0 % [facility] NRBC Absolute 0.000 0.000 - 0.000 x10(3)/ L [facility] Blood specimen (specimen) 07/20/2017 4:22 PM EST 07/20/2017 4:32 PM EST Narrative Resulting Agency Comment Spec In Lab Mal Espinoza MD HEMATOLOGY ORDERAB LES Performing Organization Address [facility] de Phone Number [facility] [place] [address] * APTT (07/20/2017 4:22 PM EST) Partial Thromboplastin Time 33 25 - 35 sec [facility] Comment: The recommended therapeutic range for full dose, unfractionated heparin at [facility] is 80 ? 114 seconds. The use of the anti-Xa (heparin) level rather than the PTT is recommended for monitoring anticoagulation intensity in critically ill patients receiving unfractionated heparin by continuous IV infusion. Blood specimen (specimen) 07/20/2017 4:22 PM EST 07/20/2017 4:33 PM EST Narrative Resulting Agency Comment Spec In Lab Mal Espinoza MD HEMATOLOGY ORDERAB LES Performing Organization Address [facility] de Phone Number [facility] [place] [address] * BMP w/fasting Glucose (07/20/2017 4:22 PM EST) Glucose Fasting 85 65 - 99 mg/dL [facility] Comment: ?Fasting* Glucose Interpretive Criteria [...] of Diabetes Mellitus, Position Statement from the Canadian Diabetes Association. ??Diabetes Care, Volume 33, Supplement 1, Aug 2009 Blood Urea Nitrogen 12 8 - 18 mg/dL [facility] Creatinine 0.92 0.70 - 1.20 mg/dL [facility] Sodium 142 135 - 145 mmol/L [facility] Potassium 3.9 3.5 - 5.0 mmol/L [facility] Comment: Please note: ??Patients with WBC >100,000 may have falsely elevated Potassium levels. ??For accurate Potassium quantification in these patients send serum separator tube (gold top) for subsequent determinations. ??Contact the Clinical Chemistry Laboratory if there are any questions. Chloride 106 98 - 107 mmol/L [facility] Carbon Dioxide 26 22 - 31 mmol/L [facility] Anion Gap 10 5 - 15 mmol/L [facility] Calcium 8.9 8.5 - 10.5 mg/dL [facility] Est Glomerular Filtration Rate 60 >=60 [facility] Comment: The reported eGFR should be multiplied by 1.2 for patients. The MDRD is not an appropriate measure of renal function for patients with body mass extremes or in patients with acute kidney failure. http://Pop Up Archive/DHnkdep http://Pop Up Archive/DHMCnkf Blood specimen (specimen) 07/20/2017 4:22 PM EST 07/20/2017 4:32 PM EST Narrative Resulting Agency Comment Spec In Lab Mal Espinoza MD CHEMISTRY ORDERABL ES [facility] [place] [address] * Cardiac Enzymes (LEB/CGP) (07/20/2017 4:22 PM EST) Troponin-T <0.01 0.00 - 0.00 ng/mL [facility] Comment: The 99th percentile for Troponin T is less than 0.01 ng/mL, any detectable cTnT concentration using this assay should be considered elevated. According to the third universal definition of myocardial infarction the following criteria with a clinical presentation consistent with acute myocardial ischemia meets the diagnosis for a myocardial infarction (AR). Detection of a rise and/or fall of cTnT, with at least one value greater than the 99th percentile (> or = 0.01) and with at least one of the following ?? Symptoms of ischemia ?? New or presumed new significant DD-dtuuihy-C wave (ST-T) changes or new left bundle branch block (LBBB) ?? Development of pathologic Q waves in the ECG ?? Imaging evidence of new loss of viable myocardium or new regional wall motion abnormality ?? Identification of an intracoronary thrombus by angiography or autopsy Samples for cTnT testing should be obtained serially upon first assessment and again 3 to 6 hours later. If the clinical suspicion is high and previous samples have been negative an additional sample may be indicated. Reference: Third [place] Definition of Myocardial Infarction. Journal of the Canadian College of Cardiology 2012;60:1581-98 Creatine Kinase 48 0 - 160 unit/L [facility] Blood specimen (specimen) 07/20/2017 4:22 PM EST 07/20/2017 4:32 PM EST Narrative Resulting Agency Comment Spec In Lab Mal Espinoza MD CHEMISTRY ORDERABL ES Performing Organization Address City/State/[facility] Co de Phone Number [facility] [place] [phone] * ECHO COMPLETE (07/20/2017 3:51 PM EST) EF 67 HEART[facility] SYSTEM Anatomical Region Laterality Modality Other 07/20/2017 Narrative 07/20/2017 3:56 PM EST Procedure: ?Transthoracic Echocardiogram Patient: ?FLOYD Smith ? (Age): 1945(71y) Med Rec#: ? [id number] ?Sex: ?F ? Site Loc: ? [facility] ?Ht / Wt: ??157(cm)/64(kg) Pt. Loc: ?Adult Floor ? BSA: ?1.64 Study Date: ?? 07/20/2017 ?Pt. Type: Inpatient Tape: ? Referring: Mal Espinoza ([id number]) Referring: JENNIFER CORRAL R Reading: Austin Anne ([id number]) Loin Trimmer: Candis Caal Loin Trimmer: Rhett Curiel Diagnosis: *ICD-10-PCS Unstable angina (I20.0) BP: ? 129/62 SUMMARY: 1. Basal septal hypertrophy is observed. ??There is normal global left ventricular systolic function. ??The quantitative left ventricular ejection fraction by biplane Fagan's method is 67%. ??There are no left ventricular segmental wall motion abnormalities. 2. The right ventricle is probably normal in size. ??Right ventricular global systolic function is normal. 3. There is no hemodynamically significant valve disease. 4. See remainder of report for additional findings. Findings ? : Study Quality: ? Adequate Left Ventricle: ? The left ventricular chamber size is normal. ?Basal septal hypertrophy is observed. ?There is no evidence of LVOT obstruction. ?There is normal global left ventricular systolic function. ?The quantitative left ventricular ejection fraction by biplane Fagan's method is 67%. ?There are no left ventricular segmental wall motion abnormalities. ?Doppler assessment is consistent with normal left sided filling pressure. Left Atrium: ? The left atrium is normal in size.(15 ml/m2) ?No atrial septal defect is visualized. ?The inter-atrial septum appears lipomatous. Right Ventricle: ? The right ventricle is probably normal in size. ?Right ventricular global systolic function is normal. ?Pulmonary artery hypertension could not be assessed due to inadequate tricuspid regurgitation jet. Right Atrium: ? The right atrium appears normal. ?The right atrium is normal in size. Aortic Valve: ? The aortic valve is tricuspid. ?Systolic excursion of the aortic valve is normal. ?There is no evidence of aortic valve stenosis. ?Mild (1+/4+) aortic valve regurgitation is present. Mitral Valve: ? The mitral valve leaflets are mildly thickened. ?There is mild (1+/4+) mitral regurgitation present. Tricuspid Valve: ? The tricuspid valve leaflets are morphologically normal. ?There is trace tricuspid regurgitation present. Pulmonic Valve: ? The pulmonic valve is not well visualized. ?There is no pulmonic stenosis present. ?There is no evidence of pulmonic regurgitation. Pericardium: ? The pericardium appears normal and there is no evidence of a pericardial effusion. Aorta: ? The aortic root is normal in size. ?The ascending aorta is normal in size. Pulmonary Artery: ? The main pulmonary artery is not well visualized. Venous: ? The inferior vena cava is poorly visualized. ?The inferior vena cava appears normal in size. ?There is a greater than 50% respiratory change in the inferior vena cava dimension. Misc: ? There is no hemodynamically significant valve disease. ?See remainder of report for additional findings. ?Two-dimensional echo, spectral Doppler and color Doppler performed. Chambers 2D ?Value ?Units (Range) ? IVSd (2D) ? 1.2 ?cm ? LVPWd (2D) ?1 ?cm ? IVS:LVPW ratio (2D) 1.2 ?ratio ? RWT (2D) ?0.5 ?ratio ? RWT PW (2D) ? 0.5 ?ratio ? LVIDd (2D) ?4.2 ?cm ? LVIDs (2D) ?2.2 ?cm ? LVIDd (2D) index ?2.5 ?cm/m2 ? LVIDs (2D) index ?1.4 ?cm/m2 ? LV FS (2D) ?47 ? % ? EF Teichholz (2D) ?? 79 ? % ? Ao root diameter (2D2.8 ?cm (2.1 - 3.6) ? Ascending Ao ?2.7 ?cm (2 - 3.5) ? Volumes/Mass ?Value ?Units (Range) ? LA Area 4 CH ?16.3 ? cm2 (<21) ? RA AREA 4CH ? 10 ? cm2 ? LA ESV BP (MOD) inde24.6 ? ml/m2 ? LV ESV SP 4CH (MOD) 23.7 ? ml ? LV ESV SP 2CH (MOD) 18.5 ? ml ? LV EDV BP ? 64.1 ? ml ? LV ESV BP ? 21.4 ? ml ? LV EDV BP index ? 39.1 ? ml/m2 ? LV ESV BP index ? 13.1 ? ml/m2 ? BP EF (MOD) ? 67 ? % ? LV mass (2D) ?150.7 ?g ? LV mass (2D) index ??91.9 ? g/m2 ? Diastolic/Systolic Function ?Value ?Units (Range) ? MV E-wave Vmax ?1.1 ?m/sec ? MV deceleration [id number] ?msec ? MV A-wave Vmax ?1.3 ?m/sec ? MV E:A ratio ?0.8 ?ratio ? LV septal e' Vmax ?? 0.1 ?m/sec ? LV lateral e' Vmax ??0.1 ?m/sec ? LV average e' Vmax ??0.1 ?m/sec ? LV E:e' septal ratio21.2 ? ratio ? LV E:e' lateral rati17.7 ? ratio ? LV average E:e' rati17.7 ? ratio ? Wall Motion: Segment Name ?Rest ? Base-Anteroseptal ?? Normal ? Base-Anterior ? Normal ? Base-Anterolateral ??Normal ? Base-Posterolateral Normal ? Base-Inferior ? Normal ? Base-Inferoseptal ?? Normal ? Mid-Anteroseptal ?Normal ? Mid-Anterior ?Normal ? Mid-Anterolateral ?? Normal ? Mid-Posterolateral ??Normal ? Mid-Inferior ?Normal ? Mid-Inferoseptal ?Normal ? [place]-Septal ? Normal ? [place]-Anterior ? Normal ? [place]-Lateral ?Normal ? [place]-Inferior ? Normal ? [place]-Tip ?Normal ? This report has been electronically signed by: Austin Anne M.D. ? 07/20/2017 15:56:29 Images reviewed and interpretation verified [facility] Cardiac Ultrasound [facility] Procedure Note Austin Anne MD - 07/20/2017 Procedure: Transthoracic Echocardiogram Patient: FLOYD Smith (Age): 1945(71y) Med Rec#: [id number] Sex: F Site Loc: [facility] Ht / Wt: 157(cm)/64(kg) Pt. Loc: Adult Floor BSA: 1.64 Study Date: 07/20/2017 Pt. Type: Inpatient Tape: Referring: Mal Espinoza ([id number]) Referring: JENNIFER CORRAL R Reading: Austin Anne ([id number]) Loin Trimmer: Candis Caal Loin Trimmer: Rhett Curiel Diagnosis: *ICD-10-PCS Unstable angina (I20.0) BP: 129/62 SUMMARY: 1. Basal septal hypertrophy is observed. There is normal global left ventricular systolic function. The quantitative left ventricular ejection fraction by biplane Fagan's method is 67%. There are no left ventricular segmental wall motion abnormalities. 2. The right ventricle is probably normal in size. Right ventricular global systolic function is normal. 3. There is no hemodynamically significant valve disease. 4. See remainder of report for additional findings. Findings : Study Quality: Adequate Left Ventricle: The left ventricular chamber size is normal. Basal septal hypertrophy is observed. There is no evidence of LVOT obstruction. There is normal global left ventricular systolic function. The quantitative left ventricular ejection fraction by biplane Fagan's method is 67%. There are no left ventricular segmental wall motion abnormalities. Doppler assessment is consistent with normal left sided filling pressure. Left Atrium: The left atrium is normal in size.(15 ml/m2) No atrial septal defect is visualized. The inter-atrial septum appears lipomatous. Right Ventricle: The right ventricle is probably normal in size. Right ventricular global systolic function is normal. Pulmonary artery hypertension could not be assessed due to inadequate tricuspid regurgitation jet. Right Atrium: The right atrium appears normal. The right atrium is normal in size. Aortic Valve: The aortic valve is tricuspid. Systolic excursion of the aortic valve is normal. There is no evidence of aortic valve stenosis. Mild (1+/4+) aortic valve regurgitation is present. Mitral Valve: The mitral valve leaflets are mildly thickened. There is mild (1+/4+) mitral regurgitation present. Tricuspid Valve: The tricuspid valve leaflets are morphologically normal. There is trace tricuspid regurgitation present. Pulmonic Valve: The pulmonic valve is not well visualized. There is no pulmonic stenosis present. There is no evidence of pulmonic regurgitation. Pericardium: The pericardium appears normal and there is no evidence of a pericardial effusion. Aorta: The aortic root is normal in size. The ascending aorta is normal in size. Pulmonary Artery: The main pulmonary artery is not well visualized. Venous: The inferior vena cava is poorly visualized. The inferior vena cava appears normal in size. There is a greater than 50% respiratory change in the inferior vena cava dimension. Misc: There is no hemodynamically significant valve disease. See remainder of report for additional findings. Two-dimensional echo, spectral Doppler and color Doppler performed. Chambers 2D Value Units (Range) IVSd (2D) 1.2 cm LVPWd (2D) 1 cm IVS:LVPW ratio (2D) 1.2 ratio RWT (2D) 0.5 ratio RWT PW (2D) 0.5 ratio LVIDd (2D) 4.2 cm LVIDs (2D) 2.2 cm LVIDd (2D) index 2.5 cm/m2 LVIDs (2D) index 1.4 cm/m2 LV FS (2D) 47 % EF Teichholz (2D) 79 % Ao root diameter (2D2.8 cm (2.1 - 3.6) Ascending Ao 2.7 cm (2 - 3.5) Volumes/Mass Value Units (Range) LA Area 4 CH 16.3 cm2 (<21) RA AREA 4CH 10 cm2 LA ESV BP (MOD) inde24.6 ml/m2 LV ESV SP 4CH (MOD) 23.7 ml LV ESV SP 2CH (MOD) 18.5 ml LV EDV BP 64.1 ml LV ESV BP 21.4 ml LV EDV BP index 39.1 ml/m2 LV ESV BP index 13.1 ml/m2 BP EF (MOD) 67 % LV mass (2D) 150.7 g LV mass (2D) index 91.9 g/m2 Diastolic/Systolic Function Value Units (Range) MV E-wave Vmax 1.1 m/sec MV deceleration [id number] msec MV A-wave Vmax 1.3 m/sec MV E:A ratio 0.8 ratio LV septal e' Vmax 0.1 m/sec LV lateral e' Vmax 0.1 m/sec LV average e' Vmax 0.1 m/sec LV E:e' septal ratio21.2 ratio LV E:e' lateral rati17.7 ratio LV average E:e' rati17.7 ratio Wall Motion: Segment Name Rest Base-Anteroseptal Normal Base-Anterior Normal Base-Anterolateral Normal Base-Posterolateral Normal Base-Inferior Normal Base-Inferoseptal Normal Mid-Anteroseptal Normal Mid-Anterior Normal Mid-Anterolateral Normal Mid-Posterolateral Normal Mid-Inferior Normal Mid-Inferoseptal Normal [place]-Septal Normal [place]-Anterior Normal [place]-Lateral Normal [place]-Inferior Normal [place]-Tip Normal This report has been electronically signed by: Austin Anne M.D. 07/20/2017 15:56:29 Images reviewed and interpretation verified [facility] Mal Espinoza MD ECHO ORDERABLES * EKG 12 Lead (07/20/2017 2:34 PM EST) Ventricular rate 60 BPM MUSE SYSTEM Atrial Rate 60 BPM MUSE SYSTEM P-R Interval 192 ms MUSE SYSTEM QRS Duration 84 ms MUSE SYSTEM Q-T Interval 410 ms MUSE SYSTEM QTC Calculated (Bezet) 410 ms MUSE SYSTEM Calculated P [place] 8 degrees MUSE SYSTEM Calculated R [place] -23 degrees MUSE SYSTEM Calculated T [place] 19 degrees MUSE SYSTEM INTERPRETATION Normal sinus rhythm Normal ECG When compared with ECG of 05-JUL-2016 07:21, No significant change was found Confirmed by MD YUSUF, ZUHAIR ([id number]) on 07/20/2017 5:12:58 PM MUSE SYSTEM 07/20/2017 2:34 PM EST 07/20/2017 5:12 PM EST Mal Espinoza MD ECG ORDERABLES MUSE SYSTEM documented in this encounter Visit Diagnoses Diagnosis Unstable angina pectoris Intermediate coronary syndrome Chest pain, unspecified type CAD (coronary artery disease) Coronary atherosclerosis of unspecified type of vessel, [place] or graft documented in this encounter Admitting Diagnoses Diagnosis CAD (coronary artery disease) Coronary atherosclerosis of unspecified type of vessel, [place] or graft documented in this encounter Administered Medications Inactive Administered Medications - up to 3 most recent administrations Medication Order MAR Action Action Date Dose Rate Site acetaminophen (TYLENOL) tablet 500 mg 500 mg, Oral, EVERY 6 HOURS PRN, Starting on 07/20/17 at 2054, Until Thu07/22/17 at 1912, Pain, Maximum dose of acetaminophen is 4000 mg from all sources in 24 hours., Routine Given 07/22/2017 6:45 AM EST 500 mg Given 07/21/2017 12:26 PM EST 500 mg Given 07/20/2017 9:07 PM EST 500 mg aspirin EC tablet 81 mg 81 mg, Oral, DAILY, First dose (after last reorder) on Thu07/21/17 at 0900, Until Discontinued, Routine Given 07/22/2017 9:08 AM EST 81 mg Given 07/21/2017 8:29 AM EST 81 mg clopidogrel (PLAVIX) tablet 75 mg 75 mg, Oral, DAILY, First dose (after last reorder) on Thu07/21/17 at 0900, Until Discontinued, Routine Given 07/22/2017 9:09 AM EST 75 mg Given 07/21/2017 8:29 AM EST 75 mg dextrose 50% IV syringe 25-50 mL 25-50 mL (12.5-25 g), Intravenous, EVERY 1 HOUR PRN, Starting on Thu07/20/17 at 1539, Until Thu07/22/17 at 191, Low blood sugar, For BG 50-70: 120 mL Juice or Regular (not diet) soda OR 12.5 gram (25 mL) Dextrose 50% IV OR, if no IV access, 1 mg Glucagon IM. Recheck BG in 30 minutes. May repeat juice, dextrose or glucagon once per episode For BG less than 50: 240 mL Juice or Regular (not diet) soda OR 25 grams (50 mL) Dextrose 50% IV OR, if no IV access, 1 mg Glucagon IM. Recheck BG in 30 minutes. May repeat juice, dextrose, or glucagon once per episode. To avoid extravasation, push Dextrose 50% SLOWLY (3 mL over 1 minute) in a patent, running IV, preferably a central line. For persistent hypoglycemia, consider longer-acting treatment for the duration of the active insulin., Routine diphenhydrAMINE (BENADRYL) capsule 25 mg 25 mg, Oral, NIGHTLY PRN, Starting on Thu07/20/17 at 1413, Until Thu07/22/17 at 1912, Sleep, Routine glucagon (human recombinant) injection SolR 1 mg 1 mg, Intramuscular, EVERY 1 HOUR PRN, Starting on Thu07/20/17 at 1539, Until Thu07/22/17 at 191, Low blood sugar, For BG 50-70: 120 mL Juice or Regular (not diet) soda OR 12.5 gram (25 mL) Dextrose 50% IV OR, if no IV access, 1 mg Glucagon IM. Recheck BG in 30 minutes. May repeat juice, dextrose or glucagon once per episode For BG less than 50: 240 mL Juice or Regular (not diet) soda OR 25 grams (50 mL) Dextrose 50% IV OR, if no IV access, 1 mg Glucagon IM. Recheck BG in 30 minutes. May repeat juice, dextrose, or glucagon once per episode. To avoid extravasation, push Dextrose 50% SLOWLY (3 mL over 1 minute) in a patent, running IV, preferably a central line. For persistent hypoglycemia, consider longer-acting treatment for the duration of the active insulin., Routine heparin (porcine) injection 0-4,000 Units 0-4,000 Units, Intravenous, BOLUS PER HEPARIN PROTOCOL, Starting on Thu07/20/17 at 1410, Until Thu07/21/17 at 0825, Per Protocol, START ADJUSTMENT SCHEDULE 6 HOURS AFTER STARTING INFUSION aPTT Between 60 - 79 seconds: Bolus 1,950 units aPTT Less than 60 seconds: Bolus 3,850 units Increase infusion and recheck aPTT in 6 hours. , Routine Given 07/20/2017 11:17 PM EST 3,850 Units heparin 25,000 units in dextrose 5% 500 mL infusion 0-5,000 Units/hr (0-100 mL/hr), Intravenous, CONTINUOUS, Starting on Thu07/20/17 at 1430, Until Thu07/21/17 at 0825, BEGIN infusion at 750 units per hr (12 units/kg/hr). MAX INITIAL infusion rate is 1,000 units/hr. Target PTT = 80 - 114 seconds Start adjustment schedule 6 hours after starting infusion. If PTT is: - less than 60 seconds, Administer PRN bolus and increase rate by 250 units per hr (4 units/kg/hr) - 60 - 79 seconds, Administer PRN bolus and increase rate by 150 units per hr (2 units/kg/hr) - 80 - 114 seconds, No Change - 115 - 129 seconds, decrease rate by 50 units per hr (1 units/kg/hr) - 130 - 145 seconds, stop infusion for 30 minutes, then decrease rate by 150 units per hr (2 units/kg/hr) - Greater than 145 seconds, stop infusion for 60 minutes, then decrease rate by 200 units per hour (3 units/kg/hr) Repeat aPTT 6 hours after initiating heparin. Then 6 hours after each dose adjustment. When 2 consecutive aPTT within target range of 80 - 114 seconds, change aPTT to once every 24 hours with A.M. labs while on heparin. RN to order required aPTT - Per Protocol, Routine, Indication: ACS (STEMI vs NSTEMI vs UA) Restarted 07/21/2017 6:52 AM EST 800 Units/hr 16 mL/hr Rate/Dose Change 07/20/2017 11:16 PM EST 1,000 Units/hr 20 mL/hr New Bag 07/20/2017 3:43 PM EST 750 Units/hr 15 mL/hr insulin lispro (humaLOG) VIAL injection 2-8 Units 2-8 Units, Subcutaneous, EVERY 4 HOURS SCHEDULED, First dose on Thu07/20/17 at 1700, Until Discontinued, CORRECTION BOLUS Moderate BG 140 - 160 Give 2 units BG 161 - 200 Give 4 units BG 201 - 240 Give 6 units BG greater than 240, give 8 units and recheck BG in 2 hours. If less than 240 after two hours, give no insulin and resume prior schedule. If BG remains greater than 240, repeat 8 units (no more than three times) & call for new basal insulin orders. DO NOT hold if NPO, unless specifically told to do so., Routine Given 07/21/2017 8:37 PM EST 2 Units Given 07/21/2017 8:30 AM EST 2 Units Given 07/20/2017 8:34 PM EST 2 Units ketorolac (TORADOL) injection 15 mg 15 mg, Intravenous, ONCE, 1 dose, On Thu07/22/17 at 0945, STAT Given 07/22/2017 9:48 AM EST 15 mg meTOPROLOL tartrate (LOPRESSOR) tablet 25 mg 25 mg, Oral, 2 TIMES DAILY, First dose (after last modification) on Thu07/20/17 at 2115, Until Discontinued, Routine Given 07/21/2017 8:42 PM EST 25 mg Given 07/21/2017 8:30 AM EST 25 mg Given 07/20/2017 9:08 PM EST 25 mg nitroGLYcerin (NITROSTAT) SL tablet 0.4 mg 0.4 mg, Sublingual, EVERY 5 MIN PRN, Starting on Thu07/20/17 at 1409, Until Thu07/22/17 at 1912, Chest pain, SL nitroglycerin may be repeated every 5 minutes as needed up to 3 doses, Routine Given 07/21/2017 12:08 PM EST 0. 4 mg Given 07/21/2017 11:33 AM EST 0.4 mg Given 07/21/2017 11:27 AM EST 0.4 mg nitroGLYcerin 50 mg in dextrose 5% 250 mL infusion 10 mcg/min (3 mL/hr), Intravenous, CONTINUOUS, Starting on Thu07/20/17 at 1430, Until Thu07/22/17 at 1912, Initiate at 10 mcg/minute for pain not responsive to sublingual nitroGLYcerin and if SBP is 100 mmHG or greater. Increase dose 10 mcg/minute every 5 minutes if SBP is 100 mmHG or greater to maximum dose 100 mcg/minute. Titrate to pain 3/10 or less Hold for SBP less than 90 mmHG AND call provider, Routine Rate/Dose Change 07/20/2017 8:30 PM EST 5 mcg/min 1.5 mL/hr Rate/Dose Change 07/20/2017 8:20 PM EST 10 mcg/min 3 mL/hr New 07/20/2017 3:32 PM EST 15 mcg/min 4.5 mL/hr rosuvastatin (CRESTOR) tablet 40 mg 40 mg, Oral, EVERY EVENING, First dose on Thu07/20/17 at 1700, Until Discontinued, Routine Given 07/21/2017 4:4 9 PM EST 40 mg Given 07/20/2017 4:22 PM EST 40 mg sodium chloride 0.9% infusion 125 mL/hr, Intravenous, ONCE, 1 dose, On Thu07/21/17 at 1230, For 500 ml New 07/21/2017 12:19 PM EST 125 mL/hr 125 mL/hr sodium chloride 0.9% infusion 125 mL/hr, Intravenous, CONTINUOUS, Starting on Thu07/21/17 at 1645, Until Thu07/22/17 at 1547 New 07/22/2017 10:06 AM EST 125 mL/hr 125 mL/hr New 07/22/2017 12:21 AM EST 125 mL/hr 125 mL/hr New 07/21/2017 4:29 PM EST 125 mL/hr 125 mL/hr technetium (Tc-99m) sestamibi injection 35.5 mCi 35.5 mCi, Intravenous, ONCE PRN, 1 dose, Starting on Thu07/21/17 at 1245, Until Thu07/21/17 at 1235, Per Protocol, Routine Given 07/21/2017 12:35 PM EST 35.5 mCi documented in this encounter Active and Recently Administered Medications Times are shown in EST. Scheduled Medication Order 07/20/2017 07/21/2017 07/22/2017 aspirin EC tablet 81 mg 81 mg, Oral, DAILY, First dose (after last reorder) on Thu07/21/17 at 0900, Until Discontinued, Routine 08 (Given - Provider: Alexei Rivera RN) 0908 (Given - Provider: Melissa Mello, CHRISTINA) clopidogrel (PLAVIX) tablet 75 mg 75 mg, Oral, DAILY, First dose (after last reorder) on Thu07/21/17 at 0900, Until Discontinued, Routine 08 (Given - Provider: Alexei Rivera RN) 0909 (Given - Provider: Melissa Mello, CHRISTINA) insulin lispro (humaLOG) VIAL injection 2-8 Units(Linked Group 1) 2-8 Units, Subcutaneous, EVERY 4 HOURS SCHEDULED, First dose on Thu07/20/17 at 1700, Until Discontinued, CORRECTION BOLUS Moderate BG 140 - 160 Give 2 units BG 161 - 200 Give 4 units BG 201 - 240 Give 6 units BG greater than 240, give 8 units and recheck BG in 2 hours. If less than 240 after two hours, give no insulin and resume prior schedule. If BG remains greater than 240, repeat 8 units (no more than three times) & call for new basal insulin orders. DO NOT hold if NPO, unless specifically told to do so., Routine 1700 (Not Given - Provider: Kevin Pruett RN - Reason: Order parameters not met)2034 (Given - Provider: Joycelyn Combs, CHRISTINA) 0000 (Not Given - Provider: Joycelyn Combs RN - Reason: Order parameters not met)0400 (Not Given - Provider: Joycelyn Combs RN - Reason: Order parameters not met)0830 (Given - Provider: Alexei Rivera, CHRISTINA)1200 (Not Given - Provider: Alexei Rivera RN - Reason: Order parameters not met)1600 (Not Given - Provider: Alexei Rivera RN - Reason: Order parameters not met)2037 (Given - Provider: Joycelyn Combs RN) 0000 (Not Given - Provider: Joycelyn Combs RN - Reason: Order parameters not met)0400 (Not Given - Provider: Joycelyn Combs RN - Reason: Order parameters not met)0800 (Not Given - Provider: Melissa Mello RN - Reason: Order parameters not met)1200 (Not Given - Provider: Melissa Mello RN - Reason: Order parameters not met)1600 (Due) ketorolac (TORADOL) injection 15 mg (COMPLETED) 15 mg, Intravenous, ONCE, 1 dose, On Thu07/22/17 at 0945, STAT 0948 (Given - Provider: Melissa Mello, CHRISTINA) meTOPROLOL tartrate (LOPRESSOR) tablet 25 mg (CANCELED) 25 mg, Oral, 2 TIMES DAILY, First dose (after last modification) on Thu07/20/17 at 2115, Until Discontinued, Routine 2108 (Given - Provider: Joycelyn Combs RN) 0830 (Given - Provider: Alexei Rivera RN)2042 (Given - Provider: Joycelyn Combs RN) rosuvastatin (CRESTOR) tablet 40 mg 40 mg, Oral, EVERY EVENING, First dose on Thu07/20/17 at 1700, Until Discontinued, Routine 1622 (Given - Provider: Kevin Pruett RN) 1649 (Given - Provider: Alexei Rivera RN) 1700 (Due) sodium chloride 0.9% infusion (COMPLETED) 125 mL/hr, Intravenous, ONCE, 1 dose, On Thu07/21/17 at 1230, For 500 ml 1219 (New Bag - Provider: Alexei Rivera RN) Continuous Medication Order 07/20/2017 07/21/2017 07/22/2017 heparin 25,000 units in dextrose 5% 500 mL infusion (CANCELED)(Linked Group 2) 0-5,000 Units/hr (0-100 mL/hr), Intravenous, CONTINUOUS, Starting on Thu07/20/17 at 1430, Until Thu07/21/17 at 0825, BEGIN infusion at 750 units per hr (12 units/kg/hr). MAX INITIAL infusion rate is 1,000 units/hr. Target PTT = 80 - 114 seconds Start adjustment schedule 6 hours after starting infusion. If PTT is: - less than 60 seconds, Administer PRN bolus and increase rate by 250 units per hr (4 units/kg/hr) - 60 - 79 seconds, Administer PRN bolus and increase rate by 150 units per hr (2 units/kg/hr) - 80 - 114 seconds, No Change - 115 - 129 seconds, decrease rate by 50 units per hr (1 units/kg/hr) - 130 - 145 seconds, stop infusion for 30 minutes, then decrease rate by 150 units per hr (2 units/kg/hr) - Greater than 145 seconds, stop infusion for 60 minutes, then decrease rate by 200 units per hour (3 units/kg/hr) Repeat aPTT 6 hours after initiating heparin. Then 6 hours after each dose adjustment. When 2 consecutive aPTT within target range of 80 - 114 seconds, change aPTT to once every 24 hours with A.M. labs while on heparin. RN to order required aPTT - Per Protocol, Routine, Indication: ACS (STEMI vs NSTEMI vs UA) 1543 (New Bag - Provider: Kevin Pruett RN)2316 (Rate/Dose Change - Provider: Joycelyn Combs RN) 0551 (Paused - Provider: Joycelyn Combs RN)0652 (Restarted - Provider: Joycelyn Combs RN)0835 (Stopped - Provider: Alexei Rivera RN) nitroGLYcerin 50 mg in dextrose 5% 250 mL infusion 10 mcg/min (3 mL/hr), Intravenous, CONTINUOUS, Starting on Thu07/20/17 at 1430, Until Thu07/22/17 at 1912, Initiate at 10 mcg/minute for pain not responsive to sublingual nitroGLYcerin and if SBP is 100 mmHG or greater. Increase dose 10 mcg/minute every 5 minutes if SBP is 100 mmHG or greater to maximum dose 100 mcg/minute. Titrate to pain 3/10 or less Hold for SBP less than 90 mmHG AND call provider, Routine 153 (New Bag - Provider: Kevin Pruett RN)2020 (Rate/Dose Change - Provider: Joycelyn Combs RN)2029 (Rate/Dose Change - Provider: Joycelyn Combs RN)204 (Paused - Provider: Joycelyn Combs RN) sodium chloride 0.9% infusion (CANCELED) 125 mL/hr, Intravenous, CONTINUOUS, Starting on Thu07/21/17 at 1645, Until Thu07/22/17 at 1547 1629 (New Bag - Provider: Alexei Rivera, RN) 0021 (New Bag - Provider: Joycelyn Combs, RN)1006 (New Bag - Provider: Melissa Mello RN) PRN Medication Order 07/20/2017 07/21/2017 07/22/2017 acetaminophen (TYLENOL) tablet 500 mg 500 mg, Oral, EVERY 6 HOURS PRN, Starting on Thu07/20/17 at 2054, Until Thu07/22/17 at 1912, Pain, Maximum dose of acetaminophen is 4000 mg from all sources in 24 hours., Routine 2107 (Given - Provider: Joycelyn Combs RN) 1226 (Given - Provider: Alexei Rivera RN) 0645 (Given - Provider: Joycelyn Combs RN) dextrose 50% IV syringe 25-50 mL(Linked Group 3) 25-50 mL (12.5-25 g), Intravenous, EVERY 1 HOUR PRN, Starting on Thu07/20/17 at 1539, Until Thu07/22/17 at 1912, Low blood sugar, For BG 50-70: 120 mL Juice or Regular (not diet) soda OR 12.5 gram (25 mL) Dextrose 50% IV OR, if no IV access, 1 mg Glucagon IM. Recheck BG in 30 minutes. May repeat juice, dextrose or glucagon once per episode For BG less than 50: 240 mL Juice or Regular (not diet) soda OR 25 grams (50 mL) Dextrose 50% IV OR, if no IV access, 1 mg Glucagon IM. Recheck BG in 30 minutes. May repeat juice, dextrose, or glucagon once per episode. To avoid extravasation, push Dextrose 50% SLOWLY (3 mL over 1 minute) in a patent, running IV, preferably a central line. For persistent hypoglycemia, consider longer-acting treatment for the duration of the active insulin., Routine diphenhydrAMINE (BENADRYL) capsule 25 mg 25 mg, Oral, NIGHTLY PRN, Starting on Thu07/20/17 at 1413, Until Thu07/22/17 at 1912, Sleep, Routine glucagon (human recombinant) injection SolR 1 mg(Linked Group 3) 1 mg, Intramuscular, EVERY 1 HOUR PRN, Starting on Thu07/20/17 at 1539, Until Thu07/22/17 at 1912, Low blood sugar, For BG 50-70: 120 mL Juice or Regular (not diet) soda OR 12.5 gram (25 mL) Dextrose 50% IV OR, if no IV access, 1 mg Glucagon IM. Recheck BG in 30 minutes. May repeat juice, dextrose or glucagon once per episode For BG less than 50: 240 mL Juice or Regular (not diet) soda OR 25 grams (50 mL) Dextrose 50% IV OR, if no IV access, 1 mg Glucagon IM. Recheck BG in 30 minutes. May repeat juice, dextrose, or glucagon once per episode. To avoid extravasation, push Dextrose 50% SLOWLY (3 mL over 1 minute) in a patent, running IV, preferably a central line. For persistent hypoglycemia, consider longer-acting treatment for the duration of the active insulin., Routine heparin (porcine) injection 0-4,000 Units (CANCELED)(Linked Group 2) 0-4,000 Units, Intravenous, BOLUS PER HEPARIN PROTOCOL, Starting on Thu07/20/17 at 1410, Until Thu07/21/17 at 0825, Per Protocol, START ADJUSTMENT SCHEDULE 6 HOURS AFTER STARTING INFUSION aPTT Between 60 - 79 seconds: Bolus 1,950 units aPTT Less than 60 seconds: Bolus 3,850 units Increase infusion and recheck aPTT in 6 hours. , Routine 2317 (Given - Provider: Joycelyn Combs RN) nitroGLYcerin (NITROSTAT) SL tablet 0.4 mg 0.4 mg, Sublingual, EVERY 5 MIN PRN, Starting on Thu07/20/17 at 1409, Until Thu07/22/17 at 1912, Chest pain, SL nitroglycerin may be repeated every 5 minutes as needed up to 3 doses, Routine 1127 (Given - Provider: Alexei Rivera RN)1133 (Given - Provider: Alexei Rivera, CHRISTINA)1208 (Given - Provider: Alexei Rivera, CHRISTINA) technetium (Tc-99m) sestamibi injection 35.5 mCi (COMPLETED) 35.5 mCi, Intravenous, ONCE PRN, 1 dose, Starting on Thu07/21/17 at 1245, Until Thu07/21/17 at 1235, Per Protocol, Routine 1235 (Given - Provider: Yung Xiong) Linked Groups Order Group 1: POCT Fingerstick Glucose (CANCELED) Routine, EVERY 4 HOURS, First occurrence on Thu07/20/17 at 1600, Until Specified, Consider choosing EVERY 4 HOURS as frequency for: - Type 1 Diabetes - At least 24 hours after coming off an insulin drip - At least 24 hours after admission for DKA - Hypoglycemia unawareness - Patients who are otherwise unstable Select the same frequency for the correction bolus insulin order And insulin lispro (humaLOG) VIAL injection 2-8 UnitsJump to med 2-8 Units, Subcutaneous, EVERY 4 HOURS SCHEDULED, First dose on Thu07/20/17 at 1700, Until Discontinued, CORRECTION BOLUS Moderate BG 140 - 160 Give 2 units BG 161 - 200 Give 4 units BG 201 - 240 Give 6 units BG greater than 240, give 8 units and recheck BG in 2 hours. If less than 240 after two hours, give no insulin and resume prior schedule. If BG remains greater than 240, repeat 8 units (no more than three times) & call for new basal insulin orders. DO NOT hold if NPO, unless specifically told to do so., Routine Group 2: heparin (porcine) injection 0-4,000 Units (CANCELED)Jump to med 0-4,000 Units, Intravenous, BOLUS PER HEPARIN PROTOCOL, Starting on Thu07/20/17 at 1410, Until Thu07/21/17 at 0825, Per Protocol, START ADJUSTMENT SCHEDULE 6 HOURS AFTER STARTING INFUSION aPTT Between 60 - 79 seconds: Bolus 1,950 units aPTT Less than 60 seconds: Bolus 3,850 units Increase infusion and recheck aPTT in 6 hours. , Routine And heparin 25,000 units in dextrose 5% 500 mL infusion (CANCELED)Jump to med 0-5,000 Units/hr (0-100 mL/hr), Intravenous, CONTINUOUS, Starting on Thu07/20/17 at 1430, Until Thu07/21/17 at 0825, BEGIN infusion at 750 units per hr (12 units/kg/hr). MAX INITIAL infusion rate is 1,000 units/hr. Target PTT = 80 - 114 seconds Start adjustment schedule 6 hours after starting infusion. If PTT is: - less than 60 seconds, Administer PRN bolus and increase rate by 250 units per hr (4 units/kg/hr) - 60 - 79 seconds, Administer PRN bolus and increase rate by 150 units per hr (2 units/kg/hr) - 80 - 114 seconds, No Change - 115 - 129 seconds, decrease rate by 50 units per hr (1 units/kg/hr) - 130 - 145 seconds, stop infusion for 30 minutes, then decrease rate by 150 units per hr (2 units/kg/hr) - Greater than 145 seconds, stop infusion for 60 minutes, then decrease rate by 200 units per hour (3 units/kg/hr) Repeat aPTT 6 hours after initiating heparin. Then 6 hours after each dose adjustment. When 2 consecutive aPTT within target range of 80 - 114 seconds, change aPTT to once every 24 hours with A.M. labs while on heparin. RN to order required aPTT - Per Protocol, Routine, Indication: ACS (STEMI vs NSTEMI vs UA) Group 3: dextrose 50% IV syringe 25-50 mLJump to med 25-50 mL (12.5-25 g), Intravenous, EVERY 1 HOUR PRN, Starting on Thu07/20/17 at 1539, Until Thu07/22/17 at 1912, Low blood sugar, For BG 50-70: 120 mL Juice or Regular (not diet) soda OR 12.5 gram (25 mL) Dextrose 50% IV OR, if no IV access, 1 mg Glucagon IM. Recheck BG in 30 minutes. May repeat juice, dextrose or glucagon once per episode For BG less than 50: 240 mL Juice or Regular (not diet) soda OR 25 grams (50 mL) Dextrose 50% IV OR, if no IV access, 1 mg Glucagon IM. Recheck BG in 30 minutes. May repeat juice, dextrose, or glucagon once per episode. To avoid extravasation, push Dextrose 50% SLOWLY (3 mL over 1 minute) in a patent, running IV, preferably a central line. For persistent hypoglycemia, consider longer-acting treatment for the duration of the active insulin., Routine Or glucagon (human recombinant) injection SolR 1 mgJump to med 1 mg, Intramuscular, EVERY 1 HOUR PRN, Starting on Thu07/20/17 at 1539, Until Thu07/22/17 at 1912, Low blood sugar, For BG 50-70: 120 mL Juice or Regular (not diet) soda OR 12.5 gram (25 mL) Dextrose 50% IV OR, if no IV access, 1 mg Glucagon IM. Recheck BG in 30 minutes. May repeat juice, dextrose or glucagon once per episode For BG less than 50: 240 mL Juice or Regular (not diet) soda OR 25 grams (50 mL) Dextrose 50% IV OR, if no IV access, 1 mg Glucagon IM. Recheck BG in 30 minutes. May repeat juice, dextrose, or glucagon once per episode. To avoid extravasation, push Dextrose 50% SLOWLY (3 mL over 1 minute) in a patent, running IV, preferably a central line. For persistent hypoglycemia, consider longer-acting treatment for the duration of the active insulin., Routine documented in this encounter Care Teams Lamp Shade Maker Relationship Specialty Start Date End Date Jennifer Ling MD [address] [place] [id number] PCP - General General Internal Medicine 07/04/16 documented as of this encounter
--- OUTSIDE RECORDS SUMMARY | 2024-05-02 14:24 | XMS_ITS | Encounter Summary ---
Author Organization [facility] [place] [address] Care Team Providers Care Male Infertility Specialist Name Role Phone Tang Ling MD Primary Care Provider Reason for Referral * Diagnostic Test (Routine) - Closed Specialty Diagnoses / Procedures Referred By Contac t Referred To Contact Cardiology Diagnoses Coronary artery disease, angina presence unspecified, unspecified vessel or lesion type, unspecified whether [place] or transplanted heart Chest pain, unspecified type Procedures Echocardiogram Transthoracic(Leb) Gideon Rodriguez MD [facility] [place] [address] [place] [address] Referral ID Status Reason Start Date Expiration Date V isits Requested Visits Authorized [id number] Closed Specialty Service Requested 09/16/2018 09/16/2019 1 1 Reason for Visit * Diagnostic Test (Routine) - Closed Specialty Diagnoses / Procedures Referred By Contac t Referred To Contact Cardiology Diagnoses Coronary artery disease, angina presence unspecified, unspecified vessel or lesion type, unspecified whether [place] or transplanted heart Chest pain, unspecified type Procedures Echocardiogram Transthoracic(Leb) Gideon Rodriguez MD [facility] [place] [address] Health [place] [address] Referral ID Status Reason Start Date Expiration Date V isits Requested Visits Authorized [id number] Closed Specialty Service Requested 09/16/2018 09/16/2019 1 1 Encounter Details Date Type Department Care Team (Latest Contact Info) Description 10/19/2018 2:24 PM EDT - 10/19/2018 11:59 PM EDT Hospital Encounter Non-[place] [address] Gideon Rodriguez MD [facility] [place] [address] Coronary artery disease, angina presence unspecified, unspecified vessel or lesion type, unspecified whether [place] or transplanted heart; Chest pain, unspecified type [...] unspecified vessel or lesion type, unspecified whether [place] or transplanted heart,Chest pain, unspecified type Take [...] PM EST Office Visit Cardiology at [address] [address] Delta Reyes MD [facility] [place] [address] documented as of this encounter Procedures Procedure Name Priority Date/Time Associated Diagnosis Comments ECHO COMPLETE Routine 10/19/2018 3:09 PM EDT Coronary artery disease, angina presence unspecified, unspecified vessel or lesion type, unspecified whether [place] or transplanted heart Chest pain, unspecified type documented in this encounter Results * ECHO COMPLETE (10/19/2018 3:09 PM EDT) Anatomical Region Laterality Modality Other 10/19/2018 Narrative 10/19/2018 3:41 PM EDT Procedure: ?Transthoracic Echocardiogram Patient: ?FLOYD Smith ? (Age): 1945(73y) Med Rec#: ? [id number] ?Sex: ?F ? [place] Loc: ? [facility] [place]Ht / Wt: ??158(cm)/63(kg) Pt. Loc: ?Echo Lab ?BSA: ?1.64 Study Date: ?? 10/19/2018 ?Pt. Type: Outpatient Tape: ? Referring: JOSE Reading: Mal Espinoza ([id number]) Administrative Liaison: Enoc Harper Diagnosis: *Atherosclerotic heart disease of [place] coronary artery without angina pectoris (I25.10) Rhythm: ? Sinus BP: ? 133/58 SUMMARY: 1. Technically limited study. 2. The left ventricular chamber size is normal. ??Basal septal hypertrophy is observed. The quantitative left ventricular ejection fraction by biplane Fagan's method is 75%. ??There are no left ventricular segmental wall motion abnormalities present. ??Doppler assessment is consistent with elevated left sided filling pressure. 3. Right ventricular chamber size, wall thickness, and systolic function are within normal limits. 4. The left atrium is normal in size. ??The right atrium appears normal. 5. Mild to moderate (1-2+/4+) aortic valve regurgitation is present. 6. See remainder of report for additional findings. Findings ? : Study Quality: ? Technically limited Left Ventricle: ? The left ventricular chamber size is normal. ?Basal septal hypertrophy is observed. ?There is no evidence of LVOT obstruction. ?Global left ventricular systolic function appears hyperdynamic. ?The quantitative left ventricular ejection fraction by biplane Fagan's method is 75%. ?There are no left ventricular segmental wall motion abnormalities. ?The left ventricular diastolic filling pattern is consistent with impaired LV relaxation. ?Doppler assessment is consistent with elevated left sided filling pressure. Left Atrium: ? The left atrium is normal in size.21 ml/m2 ?The inter-atrial septum appears lipomatous. Right Ventricle: ? Right ventricular chamber size, wall thickness, and systolic function are within normal limits. Right Atrium: ? The right atrium appears normal. Aortic Valve: ? The aortic valve is tricuspid. ?The aortic valve leaflets are mildly thickened. ?There is aortic annular calcification. ?There is no evidence of aortic valve stenosis. ?Mild to moderate (1-2+/4+) aortic valve regurgitation is present. Mitral Valve: ? The mitral valve appears normal in structure and function. ?There is trace mitral regurgitation present. Tricuspid Valve: ? The tricuspid valve appears normal in structure and function. ?There is trace tricuspid regurgitation present. Pulmonic Valve: ? The pulmonic valve appears normal in structure and function. ?There is trace pulmonic regurgitation present. Pericardium: ? The pericardium appears normal and there is no evidence of a pericardial effusion. Aorta: ? The aortic root is normal in size. ?The ascending aorta is normal in size. Pulmonary Artery: ? The main pulmonary artery appears normal. Venous: ? The inferior vena cava appears normal in size. ?There is a greater than 50% respiratory change in the inferior vena cava dimension. Misc: ? See remainder of report for additional findings. ?Two-dimensional echo, spectral Doppler and color Doppler performed. Chambers 2D ?Value ?Units (Range) ? IVSd (2D) ? 1.3 ?cm ? LVPWd (2D) ?0.9 ?cm ? IVS:LVPW ratio (2D) 1.4 ?ratio ? RWT (2D) ?0.5 ?ratio ? RWT PW (2D) ? 0.4 ?ratio ? LVIDd (2D) ?4.3 ?cm ? LVIDs (2D) ?2.7 ?cm ? LVIDd (2D) index ?2.6 ?cm/m2 ? LVIDs (2D) index ?1.7 ?cm/m2 ? LV FS (2D) ?37 ? % ? EF Teichholz (2D) ?? 67 ? % ? Ao root diameter (2D3 ?cm (2.1 - 3.6) ? Ascending Ao ?3 ?cm (2 - 3.5) ? Volumes/Mass ?Value ?Units (Range) ? LA ESV BP (A/L) inde21.3 ? ml/m2 ? LV ESV SP 4CH (MOD) 15.9 ? ml ? LV ESV SP 2CH (MOD) 13.7 ? ml ? LV EDV BP ? 59 ? ml ? LV ESV BP ? 14.8 ? ml ? LV EDV BP index ? 36 ? ml/m2 ? LV ESV BP index ? 9 ?ml/m2 ? BP EF (MOD) ? 75 ? % ? LV mass (2D) ?167 ?g ? LV mass (2D) index ??101.8 ?g/m2 ? Diastolic/Systolic Function ?Value ?Units (Range) ? MV E-wave Vmax ?1 ?m/sec ? MV deceleration atam230.2 ?msec ? MV A-wave Vmax ?1.2 ?m/sec ? MV E:A ratio ?0.8 ?ratio ? LV septal e' Vmax ?? 0 ?m/sec ? LV lateral e' Vmax ??0.1 ?m/sec ? LV average e' Vmax ??0 ?m/sec ? LV E:e' septal ratio24.3 ? ratio ? LV E:e' lateral rati19.4 ? ratio ? LV average E:e' rati24.3 ? ratio ? Aortic Valve ?Value ?Units (Range) ? AR PHT ?417.2 ?msec ? AR peak gradient ?65.2 ? mmHg ? Wall Motion: Segment Name ?Rest ? Base-Anteroseptal ?? Normal ? Base-Anterior ? Normal ? Base-Anterolateral ??Normal ? Base-Posterolateral Normal ? Base-Inferior ? Normal ? Base-Inferoseptal ?? Normal ? Mid-Anteroseptal ?Normal ? Mid-Anterior ?Normal ? Mid-Anterolateral ?? Normal ? Mid-Posterolateral ??Normal ? Mid-Inferior ?Normal ? Mid-Inferoseptal ?Normal ? [place]-Septal ? Normal ? [place]-Anterior ? Normal ? [place]-Lateral ?Normal ? [place]-Inferior ? Normal ? [place]-Tip ?Normal ? This report has been electronically signed by: Mal Espinoza MD ? 10/19/2018 15:41:09 Images reviewed and interpretation verified [facility] Cardiac Ultrasound Laboratory Procedure Note Mal Espinoza MD - 10/19/2018 Procedure: Transthoracic Echocardiogram Patient: FLOYD FINN(Age): 1945(73y) Med Rec#: [id number] Sex: F [place] Loc: [facility] [place] Ht / Wt: 158(cm)/63(kg) Pt. Loc: Echo Lab BSA: 1.64 Study Date: 10/19/2018 Pt. Type: Outpatient Tape: Referring: JOSE Reading: Mal Espinoza ([id number]) Administrative Liaison: Enoc Harper Diagnosis: *Atherosclerotic heart disease of [place] coronary artery without angina pectoris (I25.10) Rhythm: Sinus BP: 133/58 SUMMARY: 1. Technically limited study. 2. The [...] for additional findings. Findings : Study Quality: Technically limited Left Ventricle: The left ventricular chamber size is normal. Basal septal hypertrophy is observed. There is no evidence of LVOT obstruction. Global left ventricular systolic function appears hyperdynamic. The quantitative left ventricular ejection fraction by biplane Fagan's method is 75%. There are no left ventricular segmental wall motion abnormalities. The left ventricular diastolic filling pattern is consistent with impaired LV relaxation. Doppler assessment is consistent with elevated left sided filling pressure. Left Atrium: The left atrium is normal in size.21 ml/m2 The inter-atrial septum appears lipomatous. Right Ventricle: Right ventricular chamber size, wall thickness, and systolic function are within normal limits. Right Atrium: The right atrium appears normal. Aortic Valve: The aortic valve is tricuspid. The aortic valve leaflets are mildly thickened. There is aortic annular calcification. There is no evidence of aortic valve stenosis. Mild to moderate (1-2+/4+) aortic valve regurgitation is present. Mitral Valve: The mitral valve appears normal in structure and function. There is trace mitral regurgitation present. Tricuspid Valve: The tricuspid valve appears normal in structure and function. There is trace tricuspid regurgitation present. Pulmonic Valve: The pulmonic valve appears normal in structure and function. There is trace pulmonic regurgitation present. Pericardium: The pericardium appears normal and there is no evidence of a pericardial effusion. Aorta: The aortic root is normal in size. The ascending aorta is normal in size. Pulmonary Artery: The main pulmonary artery appears normal. Venous: The inferior vena cava appears normal in size. There is a greater than 50% respiratory change in the inferior vena cava dimension. Misc: See remainder of report for additional findings. Two-dimensional echo, spectral Doppler and color Doppler performed. Chambers 2D Value Units (Range) IVSd (2D) 1.3 cm LVPWd (2D) 0.9 cm IVS:LVPW ratio (2D) 1.4 ratio RWT (2D) 0.5 ratio RWT PW (2D) 0.4 ratio LVIDd (2D) 4.3 cm LVIDs (2D) 2.7 cm LVIDd (2D) index 2.6 cm/m2 LVIDs (2D) index 1.7 cm/m2 LV FS (2D) 37 % EF Teichholz (2D) 67 % Ao root diameter (2D3 cm (2.1 - 3.6) Ascending Ao 3 cm (2 - 3.5) Volumes/Mass Value Units (Range) LA ESV BP (A/L) inde21.3 ml/m2 LV ESV SP 4CH (MOD) 15.9 ml LV ESV SP 2CH (MOD) 13.7 ml LV EDV BP 59 ml LV ESV BP 14.8 ml LV EDV BP index 36 ml/m2 LV ESV BP index 9 ml/m2 BP EF (MOD) 75 % LV mass (2D) 167 g LV mass (2D) index 101.8 g/m2 Diastolic/Systolic Function Value Units (Range) MV E-wave Vmax 1 m/sec MV deceleration ghxv662.2 msec MV A-wave Vmax 1.2 m/sec MV E:A ratio 0.8 ratio LV septal e' Vmax 0 m/sec LV lateral e' Vmax 0.1 m/sec LV average e' Vmax 0 m/sec LV E:e' septal ratio24.3 ratio LV E:e' lateral rati19.4 ratio LV average E:e' rati24.3 ratio Aortic Valve Value Units (Range) AR PHT 417.2 msec AR peak gradient 65.2 mmHg Wall Motion: Segment Name Rest Base-Anteroseptal Normal Base-Anterior Normal Base-Anterolateral Normal Base-Posterolateral Normal Base-Inferior Normal Base-Inferoseptal Normal Mid-Anteroseptal Normal Mid-Anterior Normal Mid-Anterolateral Normal Mid-Posterolateral Normal Mid-Inferior Normal Mid-Inferoseptal Normal [place]-Septal Normal [place]-Anterior Normal [place]-Lateral Normal [place]-Inferior Normal [place]-Tip Normal This report has been electronically signed by: Mal Espinoza MD 10/19/2018 15:41:09 Images reviewed and interpretation verified [facility] Cardiac Ultrasound Laboratory Gideon Rodriguez MD ECHO ORDERABLES documented in this encounter Visit Diagnoses Diagnosis Coronary artery disease, angina presence unspecified, unspecified vessel or lesion type, unspecified whether [place] or transplanted heart Chest pain, unspecified type documented in this encounter Care Teams Male Infertility Specialist Relationship Specialty Start Date End Date Tang Ling MD [address] [place] [id number] PCP - General General Internal Medicine 07/04/16 documented as of this encounter
--- OUTSIDE RECORDS SUMMARY | 2024-05-02 14:24 | XMS_ITS | Encounter Summary ---
Author Organization [facility] Address [facility] [place] [address] Care Team Providers Care Plate Maker Zinc Name Role Phone Tang Ling MD Primary Care Provider [phone] Encounter Details Date Type Department Care Team (Late st Contact Info) Description 07/21/2018 Orders Only Cardiology at [address] [phone] Shekhar Hughes PA [facility] [place] [address] Chest discomfort Social History Tobacco Use Types Packs/Day Years [...] 1:30 PM EST Office Visit Cardiology at [address] [phone] Delta Reyes MD [facility] [place] [address] documented as of this encounter Procedures Procedure Name Priority Date/Time Associated Diagnosis Comments CARDIAC CATHETERIZATION Routine 07/26/20 3:45 PM EST Chest discomfort documented in this encounter Results * CARDIAC CATHETERIZATION (07/26/2018 3:45 PM EST) Anatomical Region Laterality Modality Other Narrative 07/30/2018 4:34 PM EST ?[facility] ? Cardiac Catheterization/Intervention Report ? Patient Name: Lou Mo. ? Procedure Date: 07/26/2018 ? A #: [id number] ? Primary Physician: Huber Barnes ? Case #: [id number] ? File Name: [id number] ? Catheterization Order Number: [id number] ? [facility] ? Final Report [place], [place] ? Patient Name: ? Lou Mo ? ID#: ?[id number] ? : ?1945 ? Procedure Date: ? July 26, 2018 ?Case #: ? [id number] ? Room: ? 6 ? Case Physician: ? Huber Barnes M.D. ?Start: ?14:27 ?Fellow: ? Gina Frazier M.D. ?Admission: ??07/26/2018 ? Referring Physician: ??Ari Mabry M.D. ? Procedures: ?* Coronary Angiography ?* Left Heart Catheterization ?* Coronary Ultrasound ?* Coronary Flow [place] Measurement (FFR) ?* Coronary Instantaneous Wave-Free Ratio (iFR) ? History ?Lou Mo is a 72 year old woman. She has hypertension and a ?family history of coronary artery disease. The patient has ?hypercholesterolemia managed with lipid therapy. She has diabetes managed ?with oral medication. The patient has a history of chest pain and a prior ?history of coronary artery disease. She had a remote coronary ?intervention procedure. The patient has a history of dyspnea with NYHA ?functional class II. She has aortic regurgitation. The patient also has a ?history of a heart murmur. Prior to the initiation of this procedure, the ?patient was designated as ASA Class II. ? Patient Status at Catheterization: ?The patient presented with: stable angina (w/i 42 days). [place] ?Cardiovascular Society angina class was III. This patient was on beta ?blockers prior to the procedure. No stress or imaging studies were ?performed prior to this procedure. The status of the diagnostic procedure ?was Elective. ? Technique: ?A 6 SLFr sheath was inserted in the right radial artery utilizing the ?Seldinger technique. The left coronary artery was injected utilizing a ?5Fr JIMMY RADIAL catheter. A 5Fr JR 4 catheter was used to inject the ?right coronary artery. The left ventricle was injected utilizing a 5Fr ?JIMMY RADIAL catheter. 6,500 units of heparin were administered. A total ?of 100cc of Omnipaque were opened, 80cc of Omnipaque were administered ?and 20cc of Omnipaque were wasted. Radiation: Fluoro time was 12.6 ?minutes, dose area product was 41,300 mGYcm2 and air kerma was 531 mGY. ?The patient received the following medications prior to and during the ?procedure: Aspirin (any) and Unfractionated Heparin (any). ? Hemodynamics: ?Left Heart Pressures ? Resting: ? Syst Diast ? EDP ?a ?v ? m ?Ao 116 ?? 61 ?86 ?LV 113 ? 7 ?Comments: ??LV pullback: ??LV 115, EDP 7. ??Ao 108/47 (71). ? Coronary Angiography: ?Dominance: Right ?Left Main ? Mild luminal irregularity. ?Left Anterior Descending ? There was a 45% calcified and eccentric single discrete stenosis of ? the mid segment of the left anterior descending artery (LAD). ??The ? mid 2 segment of the LAD was noted. ??The previously placed stent is ? patent. ? The proximal segment of the first diagonal branch (Diagonal 1) of ? the LAD was noted. ??The previously placed stent is patent. ?Left Circumflex ? Mild luminal irregularities. ?Right Coronary Artery ? Mild luminal irregularities. ? Intravascular Imaging/Physiology: ?Instantaneous wave-free ratio (iFR) was determined across the 45% ?stenosis in the mid LAD using a 6 Fr EBU 3.5 guiding catheter and a ?Verrata wire. ??Wire delivery was successful. ??The IFR across the 45% mid ?LAD lesion was 0.93. ??This lesion was not hemodynamically significant. ?Fractional flow reserve was performed to assess the 45% stenosis in the ?mid LAD using a 6 Fr EBU 3.5 guiding catheter and a Verrata wire. ?Adenosine 140 mcg/kg/min intravenous infusion was administered. ??Wire ?delivery was successful. ??The FFR across the 45% mid LAD lesion was 0.88. ? This lesion was not hemodynamically significant. ??Lesions are considered ?to be hemodynamically significant if the FFR is less than 0.80. ?Intravascular Ultrasound was performed in the mid LAD using a 6 Fr EBU ?3.5 guiding catheter and a 3.1 Fr Refinity 42 MHz catheter using auto 1 ?mm/sec pullback. ??Imaging was successful. ??Image quality was good. ??The ?mid LAD showed moderate diffuse atherosclerotic plaque with scattered two ?quadrant calcification. ? Vascular Access: ?Vascular Access Management: ? Mechanical Compression of the right radial artery access site was ? performed. ? Conclusions: ?* Nonobstructive coronary artery disease ? Complications/Events: ?The patient had no complications during these procedures. ? Recommendations: ?Based upon the results of this procedure, it was recommended that medical ?therapy be considered. ? Comments: ?Procedures: ?Right transradial arterial access ?Selective coronary angiography ?Left heart catheterization ?IFR + FFR mid-LAD ?IVUS mid-LAD ?Findings: ?LM - Mild luminal irregularity ?LAD - Eccentric 50% stenosis of the mid-LAD just before the entrance of ?the previously deployed mid-LAD stent ?LCX - Mild luminal irregularities ?RCA - Dominant vessel; mild luminal irregularities ?LVEDP ~7 mmHg; no significant gradient on pullback across the aortic ?valve ?On direct comparison of angiographic images to prior study in 07/2016, ?angiographic appearance of LAD appearances comparable with respect to ?moderate mid-LAD stenosis. ?IFR = 0.93 / FFR (after 2 minutes of IV adenosine) = 0.88, indicating a ?non-hemodynamically significant stenosis. ??IVUS mid-LAD shows eccentric ?calcified moderate disease just before the stent inlet and no evidence of ?dissection by IVUS interrogation. Stent in the mid-LAD appears ?well-expanded and apposed. ?Recommend further optimization of anti-anginal therapies. Will increase ?current dose of metoprolol to twice daily dosing, and added amlodipine 5 ?mg qday. ?The attending physician was present for the entire procedure. ?Dr. Huber Barnes M.D. was present during the moderate sedation ?intraservice time as documented by the sedation nurse. ??Case time = 01:12. ?Dr. Huber Barnes M.D. performed the coronary angiography, left heart ?catheterization, IFR-coronary, IVUS # coronary and FFR # coronary. ? Huber Barnes M.D. ? Report Finalized: 07/30/2018 ??16:29 ? Procedure Note Huber Barnes MD - 07/30/2018 [facility] Cardiac Catheterization/Intervention Report Patient Name: Lou MoParth Procedure Date: 07/26/2018 A #: [id number] Primary Physician: Huber Barnes Case #: [id number] File Name: [id number] Catheterization Order Number: [id number] [facility] FinalReport [place], [place] Patient Name: Lou Mo ID#:[id number] :1945 Procedure Date: July 26, 2018 Case #: [id number] Room: 6 Case Physician: Huber Barnes M.D. Start: 14:27 Fellow: Gina Frazier M.D. Admission:07/26/2018 Referring Physician: Ari Mabry M.D. Procedures: * Coronary Angiography * Left Heart Catheterization * Coronary Ultrasound * Coronary Flow [place] Measurement (FFR) * Coronary Instantaneous Wave-Free Ratio (iFR) History Lou Mo is a 72 year old woman. She has hypertension soraya family history of coronary artery disease. The patient has hypercholesterolemia managed with lipid therapy. She has diabetesmanaged with oral medication. The patient has a history of chest pain and aprior history of coronary artery disease. She had a remote coronary intervention procedure. The patient has a history of dyspnea withNYHA functional class II. She has aortic regurgitation. The patient alsohas a history of a heart murmur. Prior to the initiation of thisprocedure, the patient was designated as ASA Class II. Patient Status at Catheterization: The patient presented with: stable angina (w/i 42 days). [place] Cardiovascular Society angina class was III. This patient was onbeta blockers prior to the procedure. No stress or imaging studies were performed prior to this procedure. The status of the diagnosticprocedure was Elective. Technique: A 6 SLFr sheath was inserted in the right radial artery utilizingthe Seldinger technique. The left coronary artery was injected utilizinga 5Fr JIMMY RADIAL catheter. A 5Fr JR 4 catheter was used to injectthe right coronary artery. The left ventricle was injected utilizing a5Fr JIMMY RADIAL catheter. 6,500 units of heparin were administered. Atotal of 100cc of Omnipaque were opened, 80cc of Omnipaque wereadministered and 20cc of Omnipaque were wasted. Radiation: Fluoro time was 12.6 minutes, dose area product was 41,300 mGYcm2 and air kerma was 531mGY. The patient received the following medications prior to and duringthe procedure: Aspirin (any) and Unfractionated Heparin (any). Hemodynamics: Left Heart Pressures Resting: Syst Diast EDP a v m Ao 116 61 86 LV 113 7 Comments: LV pullback: LV 115, EDP 7. Ao 108/47 (71). Coronary Angiography: Dominance: Right Left Main Mild luminal irregularity. Left Anterior Descending There was a 45% calcified and eccentric single discretestenosis of the mid segment of the left anterior descending artery (LAD).The mid 2 segment of the LAD was noted. The previously placedstent is patent. The proximal segment of the first diagonal branch (Diagonal 1)of the LAD was noted. The previously placed stent is patent. Left Circumflex Mild luminal irregularities. Right Coronary Artery Mild luminal irregularities. Intravascular Imaging/Physiology: Instantaneous wave-free ratio (iFR) was determined across the 45% stenosis in the mid LAD using a 6 Fr EBU 3.5 guiding catheter and a Verrata wire. Wire delivery was successful. The IFR across the 45%mid LAD lesion was 0.93. This lesion was not hemodynamicallysignificant. Fractional flow reserve was performed to assess the 45% stenosis inthe mid LAD using a 6 Fr EBU 3.5 guiding catheter and a Verrata wire. Adenosine 140 mcg/kg/min intravenous infusion was administered.Wire delivery was successful. The FFR across the 45% mid LAD lesion was0.88. This lesion was not hemodynamically significant. Lesions areconsidered to be hemodynamically significant if the FFR is less than 0.80. Intravascular Ultrasound was performed in the mid LAD using a 6 FrEBU 3.5 guiding catheter and a 3.1 Fr Refinity 42 MHz catheter usingauto 1 mm/sec pullback. Imaging was successful. Image quality was good.The mid LAD showed moderate diffuse atherosclerotic plaque withscattered two quadrant calcification. Vascular Access: Vascular Access Management: Mechanical Compression of the right radial artery access sitewas performed. Conclusions: * Nonobstructive coronary artery disease Complications/Events: The patient had no complications during these procedures. Recommendations: Based upon the results of this procedure, it was recommended thatmedical therapy be considered. Comments: Procedures: Right transradial arterial access Selective coronary angiography Left heart catheterization IFR + FFR mid-LAD IVUS mid-LAD Findings: LM - Mild luminal irregularity LAD - Eccentric 50% stenosis of the mid-LAD just before the entranceof the previously deployed mid-LAD stent LCX - Mild luminal irregularities RCA - Dominant vessel; mild luminal irregularities LVEDP ~7 mmHg; no significant gradient on pullback across the aortic valve On direct comparison of angiographic images to prior study in07/2016, angiographic appearance of LAD appearances comparable with respectto moderate mid-LAD stenosis. IFR = 0.93 / FFR (after 2 minutes of IV adenosine) = 0.88,indicating a non-hemodynamically significant stenosis. IVUS mid-LAD showseccentric calcified moderate disease just before the stent inlet and noevidence of dissection by IVUS interrogation. Stent in the mid-LAD appears well-expanded and apposed. Recommend further optimization of anti-anginal therapies. Willincrease current dose of metoprolol to twice daily dosing, and addedamlodipine 5 mg qday. The attending physician was present for the entire procedure. Dr. Huber Barnes M.D. was present during the moderate sedation intraservice time as documented by the sedation nurse. Case time =01:12. Dr. Huber Barnes M.D. performed the coronary angiography, leftheart catheterization, IFR-coronary, IVUS # coronary and FFR # coronary. Huber Barnes M.D. Report Finalized: 07/30/2018 16:29 Jamal Thurston MD CARDIAC CATH ORDERAB LES documented in this encounter Visit Diagnoses Diagnosis Chest discomfort Other chest pain Chest discomfort Other chest pain documented in this encounter Care Teams Plate Maker Zinc Relationship Specialty Start Date End Date Tang Ling MD [address] [place] [id number] PCP - General General Internal Medicine 07/04/16 documented as of this encounter
--- OUTSIDE RECORDS SUMMARY | 2024-05-02 14:24 | XMS_ITS | Encounter Summary ---
Author Organization [facility] Address [facility] [place] [address] Care Team Providers Care Seed Technician Name Role Phone Tang Ling MD Primary Care Provider [phone] Reason for Referral * Diagnostic Test (Routine) - Closed Specialty Diagnoses / Procedures Referred By Contac t Referred To Contact Radiology Diagnoses Coronary artery disease, angina presence unspecified, unspecified vessel or lesion type, unspecified whether [place] or transplanted heart Chest pain, unspecified type Procedures CT Chest w Contrast MRI Chest wwo Contrast CT Chest w Contrast Gideon Rodriguez MD [facility] [place] [address] [facility] [place] [address] Referral ID Status Reason Start Date Expiration Date V isits Requested Visits Authorized [id number] Closed Specialty Service Requested 09/16/2018 09/16/2019 1 1 * Diagnostic Test (Routine) - Closed Specialty Diagnoses / Procedures Referred By Contac t Referred To Contact Cardiology Diagnoses Coronary artery disease, angina presence unspecified, unspecified vessel or lesion type, unspecified whether [place] or transplanted heart Chest pain, unspecified type Procedures Echocardiogram Transthoracic(Leb) Gideon Rodriguez MD [facility] [place] [address] [facility] [place] [address] Referral ID Status Reason Start Date Expiration Date V isits Requested Visits Authorized [id number] Closed Specialty Service Requested 09/16/2018 09/16/2019 1 1 Reason for Visit * Reason Comments Chest Pain Shortness of Breath Encounter Details Date Type Department Care Team (Late st Contact Info) Description 09/16/2018 10:20 AM EST Office Visit Cardiology at [address] [phone] Gideon Rodriguez MD [facility] [place] [address] Coronary artery disease, angina presence unspecified, unspecified vessel or lesion type, unspecified whether [place] or transplanted heart; Chest pain, unspecified type Social History Tobacco Use Types Packs/Day Years [...] Sign Reading Time Taken Comments Blood Pressure 114/50 09/16/2018 10:08 AM EST Pulse 68 09/16/2018 10:08 AM EST Temperature - - Respiratory Rate - - Oxygen Saturation 98% 09/16/2018 10:08 AM EST Inhaled Oxygen Concentration - - Weight 62.6 kg (138 lb) 09/16/2018 10:08 AM EST Height 157.5 cm (5' 2) 09/16/2018 10:08 AM EST Body Mass Index 25.24 09/16/2018 10:08 AM EST documented in this encounter Patient Instructions * Patient Instructions* Gideon Rodriguez MD - 09/16/2018 10:20 AM EST 1. Start Prilosec 20 mg daily 2. Echo and CT of chest to be scheduled 3. Follow-up appointment at time of above testing documented in this encounter Progress Notes * Gideon Rodriguez MD - 09/16/2018 10:20 AM EST Images from the original note were not included. [facility] [address], [place] [id number] CARDIOLOGY OUTPATIENT CONSULTATION [facility] [place] Office [place] [id number] 09/16/2018 REFERRING PROVIDER: Tang Ling CHIEF COMPLAINT: Chief Complaint Patient presents with ??? Chest Pain ??? Shortness of Breath PROBLEM LIST Patient Active Problem List Diagnosis ??? CAD [...] CIS - GERD ??? CIS - HTN HISTORY OF PRESENT ILLNESS: This 73-year-old woman comes for evaluation of chest pain and lightheadedness. She has known coronary artery disease and is status post stenting of an 85% LAD lesion in May 2016. She has had intermittent chest pain ever since. Heart catheterization a couple of monthsafter her initial procedure was negative. She had a patent stent. She was apparently doing well until mid July of last year when she began having chest pain. This occurs in her left pectoral region and is variably a pressure sensation or sharp pain. It radiates to her neck, left arm, and also to her left scapular region. Symptoms are induced with walking, worsened with a deep breath, and alsoworsened with chest movement. Symptoms are often present for hours on end. She was experiencing this later in July and presented to [facility]. She was set up for an outpatient heart catheterization at [facility] which took place on July 26, 2018. She had luminal irregularities in theleft main, circumflex, and RCA. She had a 45% LAD lesion and this was further evaluated invasively and did not appear to be significant. She has continued to have symptoms. She presented to the emergency department at [facility] again on September 08, 2018. She hadnegative enzymes despite prolonged pain. She had a low proBNP. She was ultimately treated with Tylenol which did not help, Toradol which did not seem to help. And advised to have follow-up in the cardiology clinic here. She says she continues to have symptoms. She was having chest pain during the visit. She also reports feeling very fatigued. She has exertional shortness of breath and lightheadedness. She believes that her heart rate gets slow with exertion although this has not been formally documented. PAST MEDICAL HISTORY: Reviewed and updated as appropriate in the medical record. Please refer to detailed Problem List above for current listing of active medical problems. MEDICATIONS: Current Outpatient Medications Medication Sig Dispense Refill ??? diclofenac (VOLTAREN) 50 mg Tablet, Delayed Release (E.C.) TAKE ONE TABLET BY MOUTH EVERY DAY 5 ??? amLODIPine (NORVASC) 5 mg Tablet Take 1 tablet by mouth daily. 90 tablet 3 ??? metoprolol succinate (TOPROL-XL) 50 mg Tablet Sustained Release 24 hr Take 2 tablets by mouth daily. 90 tablet 3 ??? nitroGLYcerin (NITROSTAT) 0.4 mg Tablet, Sublingual [...] mL Oral Once PRN Gideon Rodriguez MD ALLERGIES: Hymenoptera allergenic extract; Trulicity [dulaglutide]; Cis free text allergy; and Ibuprofen SOCIAL HISTORY: She is and lives in [place], [place]. 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 She has never smoked and does not drink alcoholic beverages. She has 1 caffeinated beverage per day. FAMILY HISTORY: Contributory REVIEW OF SYSTEMS: General: She reports fatigue, difficulty sleeping, weakness, and frequent lightheadedness. Eyes: She reports occasional blurred vision. She denies visual loss. ENT: No sore throat or dry mouth. Pulmonary: Ports exertional dyspnea. She has an occasional cough. Hem/Lymph: No swollen glands, fever, or bleeding. GI: She reports dysphasia for the last few months. She says this is a problem with both solids and liquids. : No urethral discharge, dysuria, frequency, or nocturia. Endocrine: No hot spells, cold spells. Musculoskeletal: No limb pain, joint pain, or joint swelling. Neuro: No focal weakness, ataxia, confusion, paresthesias or headache. Skin: No rashes or dry skin. Psych: No depression, anxiety, suicidal ideation. Cardiac: See HPI PHYSICAL EXAMINATION: Vital Signs: BP 114/50 Pulse 68 Ht 157.5 cm (5' 2) Wt 62.6 kg (138 lb) SpO2 98% BMI 25.24 kg/m?? Exam Details: On exam she appeared in good health and spirits. Vital signs as documented. Skin warmand dry and without overt rashes. Neck without JVD. Lungs clear. Heart exam notable for regular rhythm, normal sounds and absence of murmurs, rubs or gallops. Abdomen unremarkable and without evidence of organomegaly, masses, or abdominal aortic enlargement. Extremities non- edematous. Examination of her chest did not reveal any focal chest wall tenderness. She had no back tenderness. DATA: Twelve-lead EKG: This revealed sinus rhythm at a rate of 65 with no abnormalities. Informal walk test: I walked her for a loop around the clinic and this lasted about 2 minutes. Her pre-walk blood pressure and pulse were 120/60 and 60. At the end of the walk her blood pressure was 130/80 and 66. GI cocktail evaluation: A cocktail consisting of viscous lidocaine, Mylanta, and Benadryl was administered. After 5 minutes it had made no difference in her chest pain. Treadmill stress test: She was walked on a treadmill using a very gentle protocol admitted to stageIV of the test. Her resting heart rate and blood pressure were 68 and 90/52. Lawrence into the test her heart rate had gone up to 74 and her blood pressure was unchanged. At peak exercise and feeling very lightheaded, her heart rate was 78. ASSESSMENT: This is a complex 73-year-old woman with atypical chest pain, nonobstructive coronary artery disease on heart catheterization, and exertional lightheadedness. She has a fairly low restingblood pressure. She did not show evidence of right chronotropic incompetence although her heart rate did not rise in a significant way. I wonder, however, whether the issue with her exertional intolerance is related to low blood pressure, perhaps from over medication. Regarding her chest pain, this is very atypical and highly unlikely to be cardiac ischemia. Other potential causes include chest wall pain, esophageal issues, back pain, and perhaps something such asan aortic dissection. RECOMMENDATIONS: 1. Trial addition of Prilosec 20 mg daily 2. Reduce metoprolol to 25 mg daily 3. Discontinue amlodipine 4. Follow-up appointment with preceding CT scan of the chest with contrast (to evaluate for aortic dissection) and echocardiogram next available Thank you for requesting this consultation. For questions, please feel free to contact me via any of the following mechanisms: Email: [email or web address] documented in this encounter Plan of Treatment Upcoming Encounters Date Type Department Care Team (Late st Contact Info) Description 07/06/2024 1:30 PM EST Office Visit Cardiology at [address] [phone] Delta Reyes MD [facility] [place] [address] documented as of this encounter Procedures Procedure Name Priority Date/Time Associated Diagnosis Comments EKG 12-LEAD Routine 09/16/2018 10:16 AM EST Coronary artery disease, angina presence unspecified, unspecified vessel or lesion type, unspecified whether [place] or transplanted heart Chest pain, unspecified type documented in this encounter Results * ECHO COMPLETE (10/19/2018 3:09 PM EDT) Anatomical Region Laterality Modality Other 10/19/2018 Narrative 10/19/2018 3:41 PM EDT Procedure: ?Transthoracic Echocardiogram Patient: ?FLOYD ROJAS Luis ? (Age): 1945(73y) Med Rec#: ? [id number] ?Sex: ?F ? Site Loc: ? DH ?Ht / Wt: ??158(cm)/63(kg) Pt. Loc: ?Echo Lab ?BSA: ?1.64 Study Date: ?? 10/19/2018 ?Pt. Type: Outpatient Tape: ? Referring: JOSE Reading: Mal Espinoza ([id number]) Sleeve Maker: Enoc Harper Diagnosis: *Atherosclerotic heart disease of [place] coronary artery without angina pectoris (I25.10) Rhythm: [...] E-wave Vmax ?1 ?m/sec ? MV deceleration [id number] ?msec ? MV A-wave Vmax ?1.2 ?m/sec [...] ? Mid-Inferior ?Normal ? Mid-Inferoseptal ?Normal ? [place]-Septal ? Normal ? [place]-Anterior ? Normal ? [place]-Lateral ?Normal ? [place]-Inferior ? Normal ? [place]-Tip ?Normal ? This report has been electronically signed by: Mal Espinoza MD ? 10/19/2018 15:41:09 Images reviewed and interpretation verified [facility] Cardiac Ultrasound Laboratory Procedure Note Mal Espinoza MD - 03/19/2019 Procedure: Transthoracic Echocardiogram Patient: FLOYD Smith (Age): 1945(73y) Med Rec#: [id number] Sex: F Site Loc: [facility] Ht / Wt: 158(cm)/63(kg) Pt. Loc: Echo Lab BSA: 1.64 Study Date: 10/19/2018 Pt. Type: Outpatient Tape: Referring: JOSE Reading: Mal Espinoza ([id number]) Sleeve Maker: Enoc Harper Diagnosis: *Atherosclerotic heart disease of [place] coronary artery without angina pectoris (I25.10) Rhythm: [...] MV E-wave Vmax 1 m/sec MV deceleration [id number] msec MV A-wave Vmax 1.2 m/sec MV [...] Normal Mid-Posterolateral Normal Mid-Inferior Normal Mid-Inferoseptal Normal [place]-Septal Normal [place]-Anterior Normal [place]-Lateral Normal [place]-Inferior Normal [place]-Tip Normal This report has been electronically signed by: Mal Espinoza MD 10/19/2018 15:41:09 Images reviewed and interpretation verified [facility] Cardiac Ultrasound Laboratory Gideon Rodriguez MD ECHO ORDERABLES * CT Chest w Contrast (10/19/2018 2:19 [...] below. Gideon Rodriguez MD IMG CT ORDERABLES * Stress Test, Exercise (Treadmill) (09/16/2018 1:40 PM EST) Anatomical Region Laterality Modality Other Gideon Rodriguez MD CARDIAC SERVICES ORD ERABLES * EKG 12 Lead (09/16/2018 10:16 AM EST) Ventricular rate 65 BPM MUSE SYSTEM Atrial Rate 65 BPM MUSE SYSTEM P-R Interval 198 ms MUSE SYSTEM QRS Duration 80 ms MUSE SYSTEM Q-T Interval 388 ms MUSE SYSTEM QTC Calculated (Bezet) 403 ms MUSE SYSTEM Calculated P [place] 42 degrees MUSE SYSTEM Calculated R [place] -21 degrees MUSE SYSTEM Calculated T [place] 35 degrees MUSE SYSTEM INTERPRETATION Normal sinus rhythm Normal ECG When compared with ECG of 26-JUL-2018 09:53, No significant change was found Confirmed by MD Jennifer, Gideon ([id number]) on 09/16/2018 5:05:11 PM MUSE SYSTEM 09/16/2018 10:1 6 AM EST 09/16/2018 5:05 PM EST Gideon Rodriguez MD ECG ORDERABLES MUSE SYSTEM documented in this encounter Visit Diagnoses Diagnosis Coronary artery disease, angina presence unspecified, unspecified vessel or lesion type, unspecified whether [place] or transplanted heart Chest pain, unspecified type Coronary artery disease, angina presence unspecified, unspecified vessel or lesion type, unspecified whether [place] or transplanted heart Chest pain, unspecified type Coronary artery disease, angina presence unspecified, unspecified vessel or lesion type, unspecified whether [place] or transplanted heart Chest pain, unspecified type documented in this encounter Care Teams Seed Technician Relationship Specialty Start Date End Date Tang Ling MD [address] [place] [address] PCP - General General Internal Medicine 07/04/16 documented as of this encounter
--- OUTSIDE RECORDS SUMMARY | 2024-05-02 14:24 | XMS_ITS | Encounter Summary ---
Author Organization [facility] Address [facility] [place] [address] Care Team Providers Care Bolt Cutter Name Role Phone Tang Ling MD Primary Care Provider [phone] Encounter Details Date Type Department Care Team (Late st Contact Info) Description 09/10/2018 Orders Only Cardiology at [address] [phone] Gideon Rodriguez MD [facility] [place] [address] Coronary artery disease, angina presence unspecified, unspecified vessel or lesion type, unspecified whether [place] or transplanted heart (Primary Dx); Chest pain, unspecified type Social History Tobacco [...] 1:30 PM EST Office Visit Cardiology at [address] [phone] Delta Reyes MD [facility] [place] [address] documented as of this encounter Results * EKG 12 Lead (09/16/2018 10:16 AM EST) Ventricular rate 65 BPM MUSE SYSTEM Atrial Rate 65 BPM MUSE SYSTEM P-R Interval 198 ms MUSE SYSTEM QRS Duration 80 ms MUSE SYSTEM Q-T Interval 388 ms MUSE SYSTEM QTC Calculated (Bezet) 403 ms MUSE SYSTEM Calculated P [place] 42 degrees MUSE SYSTEM Calculated R [place] -21 degrees MUSE SYSTEM Calculated T [place] 35 degrees MUSE SYSTEM INTERPRETATION Normal sinus [...] unspecified vessel or lesion type, unspecified whether [place] or transplanted heart- Primary Chest pain, unspecified type documented in this encounter Care Teams Bolt Cutter Relationship Specialty Start Date End Date Tang Ling MD [address] [place] [id number] PCP - General General Internal Medicine 07/04/16 documented as of this encounter
--- OUTSIDE RECORDS SUMMARY | 2024-05-02 14:24 | XMS_ITS | Encounter Summary ---
Author Organization Count Includes [facility] Address [facility] [place] [address] Care Team Providers Care Bale Sewer Name Role Phone Tang Ling MD Primary Care Provider [phone] Encounter Details Date Type Department Care Team (Latest Contact Info) Description 07/26/2018 8:52 AM EST - 07/26/2018 6:16 PM EST Hospital Encounter [place] [id number] Huber Barnes MD [facility] [place] [address] Chest discomfort Discharge Disposition: Home Social History Tobacco Use [...] Sign Reading Time Taken Comments Blood Pressure 106/75 07/26/2018 5:45 PM EST Pulse 57 07/26/2018 5:25 PM EST Temperature 36.8 ??C (98.2 ??F) 07/26/2018 5:35 PM ES T Respiratory Rate 9 07/26/2018 5:25 PM EST Oxygen Saturation 96% 07/26/2018 5:45 PM EST Inhaled Oxygen Concentration - - Weight 63.5 kg (139 lb 15.9 oz) 07/26/2018 2:12 PM EST Height 157.5 cm (5' 2) 07/26/2018 9:43 AM EST Body Mass Index 25.6 07/26/2018 9:43 AM EST documented in this encounter Discharge Instructions * Discharge Instructions* Mal Boyle RN - 07/26/2018 5:53 PM EST Radial [...] by your doctor, do not take any zwps-gzy-vxfplys medicinesor herbal preparations without first discussing this with your doctor or pharmacist. There is the possibility of side effects and interactions when these are combined. Follow Up Care Who to call with questions or problems If there are any questions or problems that you think might be related to your cardiac cath or angioplasty, contact the forms examiner cardiac catheterization technician by calling [facility] at . * Patient Instructions* Gina Frazier MD - 07/26/2018 3:57 PM EST Cardiology Instructions Call your doctor if: Chest pain, dyspnea, pain or swelling in legs occurs. If you have non-emergent questions between now and the time of your follow up appointments: -During 8am-5pm Thursday through Thursday call [phone] to speak with a nurse in the cardiology clinic -All other times call [phone] and ask to speak to the donkey engine firer/fireman cardiac catheterization technician. MEDICATIONS -Double you metoprolol and start amlodipine [...] Primary care provider: Cardiology: Tang Ling MD [phone] Follow up as planned or as needed. [...] stents to the LAD and D1 in 2015. About two weeks ago she developed chest [...] Operative Note Patient Name: Lou Mo : [id number] MR#: [id number] Case Date: 07/26/2018 Surgeon: Surgeon(s) and Role: [...] therapies. Complications: None Frailty 3 Definitions from [employer] [employer] and Aging Clinical Frailty [...] with all outside activities and with minor sock lining examiner. May need help with bathing and dressing. [...] 1:30 PM EST Office Visit Cardiology at [address] [address] Delta Reyes MD [facility] [place] [address] documented as of this encounter Procedures Procedure [...] Glucose, POC 104 65 - 199 mg/dL [facility] Comment: Supplemental ranges: <140 mg/dL before meals <180 mg/dL all other times of the day Blood specimen (specimen) 07/26/2018 5:49 PM EST 07/26/2018 5:49 PM EST Huber Barnes MD POINT OF CARE TEST O JENIFER Performing Organization Address [facility]/ZIP Co de Phone Number [facility] [place] [address] * POCT Glucose (07/26/2018 10:08 AM EST) Glucose, POC 152 65 - 199 mg/dL [facility] Comment: Supplemental ranges: <140 mg/dL before meals <180 mg/dL all other times of the day Blood specimen (specimen) 07/26/2018 10:08 AM EST 07/26/2018 10:08 AM EST Huber Barnes MD POINT OF CARE TEST O JENIFER [facility] [place] [address] * EKG 12 Lead (07/26/2018 9:53 AM EST) Ventricular rate 68 BPM MUSE SYSTEM Atrial Rate 68 BPM MUSE SYSTEM P-R Interval 216 ms MUSE SYSTEM QRS Duration 86 ms MUSE SYSTEM Q-T Interval 414 ms MUSE SYSTEM QTC Calculated (Bezet) 440 ms MUSE SYSTEM Calculated P [place] 35 degrees MUSE SYSTEM Calculated R [place] -27 degrees MUSE SYSTEM Calculated T [place] 30 degrees MUSE SYSTEM INTERPRETATION Sinus rhythm with 1st degree A-V block Poor R-wave progression When compared with ECG of 22-JUL-2017 07:36, No significant change was found Confirmed by MD Scout, [place] ([id number]) on 07/26/2018 9:58:21 AM MUSE SYSTEM 07/26/2018 9:53 AM EST 07/26/2018 9:58 AM EST Jamal Thurston MD ECG ORDERABLES MUSE SYSTEM * Differential, Automated (07/26/2018 9:15 AM EST) Neutrophil % 68.9 % [facility] Neutrophil Absolute 5.12 1.70 - 6.10 x10(3)/[facility] Lymph % 23.5 % [facility] Lymphocytes Abs 1.8 0.9 - 3.2 x10(3)/[facility] Monocyte % 5.6 % [facility] Monocyte Abs 0.4 0.3 - 0.9 x10(3)/[facility] Eos % 1.2 % [facility] Eosinophils Abs 0.1 0.0 - 0.4 x10(3)/[facility] Basophil % 0.5 % [facility] Baso Absolute 0.0 0.0 - 0.1 x10(3)/[facility] Immature Gran % 0.30 % [facility] Comment: Immature granulocytes(IG's)percentage and absolute count will include metamyelocytes, myelocytes, and promyelocytes. Blood smears from CBCs yielding IG's will be scanned manually for concordance. If this scan disagrees with the automated IG or if promyelocytes are noted, a manual differential will be performed. Immature Gran Absolute 0.02 0.00 - 0.04 x10(3)/[facility] Blood specimen (specimen) 07/26/2018 9:15 AM EST 07/26/2018 9:27 AM EST Narrative Resulting Agency Comment Spec In Lab Shekhar BRIONES HEMATOLOGY ORDERABLE S [facility] [place] [address] * Hemogram (07/26/2018 9:15 AM EST) White Blood Cell 7.4 4.0 - 9.5 x10(3)/[facility] Red Blood Cell 4.55 4.00 - 5.21 x10(6)/[facility] Hemoglobin 14.1 11.7 - 15.5 gm/dL [facility] Hematocrit 41.2 35.7 - 45.8 % [facility] Mean Cell Volume 90.5 82.6 - 94.4 fL [facility] Mean Cell Hemoglobin 31.0 27.1 - 32.0 pg [facility] Mean Cell Hemoglobin Concentration 34.2 31.7 - 35.0 gm/dL [facility] Platelet 162 145 - 357 x10(3)/[facility] RDW Standard Deviation 42.1 37.0 - 46.0 [facility] RDW coefficient of variation 12.7 11.5 - 14.1 % [facility] Mean Platelet Volume 10.3 7.6 - 12.9 fL [facility] NRBC% auto 0.0 % [facility] NRBC Absolute 0.000 0.000 - 0.000 x10(3)/[facility] Blood specimen (specimen) 07/26/2018 9:15 AM EST 07/26/2018 9:27 AM EST Narrative Resulting Agency Comment Spec In Lab Shekhar BRIONES HEMATOLOGY ORDERABLE S [facility] [place] [address] * (ABNORMAL) BMP w/fasting Glucose (07/26/2018 9:15 AM EST) Glucose Fasting 171(H) 65 - 99 mg/dL [facility] Comment: ?Fasting* Glucose Interpretive Criteria [...] of Diabetes Mellitus, Position Statement from the [place] [employer]. ??Diabetes Care, Volume 33, Supplement 1, Aug 2009 Blood Urea Nitrogen 16 8 - 18 mg/dL [facility] Creatinine 1.00 0.70 - 1.20 mg/dL [facility] Sodium 143 135 - 145 mmol/L [facility] Potassium 4.0 3.5 - 5.0 mmol/L [facility] Comment: Please note: ??Patients with WBC >100,000 may have falsely elevated Potassium levels. ??For accurate Potassium quantification in these patients send serum separator tube (gold top) for subsequent determinations. ??Contact the Clinical Chemistry Laboratory if there are any questions. Chloride 105 98 - 107 mmol/L [facility] Carbon Dioxide 27 22 - 31 mmol/L [facility] Anion Gap 11 5 - 15 mmol/L [facility] Calcium 8.9 8.5 - 10.5 mg/dL [facility] Est Glomerular Filtration Rate 56(L) >=60 mL/min/1. 73 m?? [facility] Comment: The eGFR was calculated using the CKD-EPI equation. As with all creatinine based estimates of kidney function, eGFR values calculated with the CKD-EPI equation are not accurate in patients with acute kidney failure, extremes of body mass or the acutely ill. [email or web address] [email or web address] eGFR 65 >=60 mL/min/1. 73 m?? [facility] Comment: The eGFR was calculated using the CKD-EPI equation. As with all creatinine based estimates of kidney function, eGFR values calculated with the CKD-EPI equation are not accurate in patients with acute kidney failure, extremes of body mass or the acutely ill. [email or web address] Blood specimen (specimen) 07/26/2018 9:15 AM EST 07/26/2018 9:27 AM EST Narrative Resulting Agency Comment Spec In Lab Jamal Thurston MD CHEMISTRY ORDERABLES [facility] [place] [address] documented in this encounter Visit Diagnoses Diagnosis Chest discomfort Other chest pain documented in this encounter Administered Medications Inactive Administered Medications - up to 3 most recent administrations Medication Order MAR Action Action Date Dose Rate Site sodium chloride 0.9% infusion 200 mL/hr, Intravenous, CONTINUOUS, Starting on Thu07/26/18 at 1000, Until Thu07/26/18 at 1815, Cath (Day of Procedure) New Bag 07/26/2018 10:20 AM EST 200 mL/hr 200 mL/hr sodium chloride 0.9% infusion 150 mL/hr, Intravenous, CONTINUOUS, Starting on Thu07/26/18 at 1615, Until Thu07/26/18 at 1814, Recovery (Recovery-Hospital Unit) New Bag 07/26/2018 4:00 PM EST 150 mL/hr 150 mL /hr documented in this encounter Active and Recently [...] in sodium chloride 0.9% 90 mL infusion (BAKER BISCUIT) (CANCELED) CONTINUOUS PRN, Starting on Thu07/26/18 at [...] Oral, ONCE PRN, 1 dose, Starting on [facility] 09/16/18 at 1103, Until Discontinued, per provider [...] Until Thu07/26/18 at 1552, Cath (Intra-Procedure), Routine 1541 (Given - Provid er: Huber Barnes MD) lidocaine (XYLOCAINE) 10 mg/mL (1 %) injection (CANCELED) ONCE PRN, Starting on Thu07/26/18 at 1424, Until Thu07/26/18 at 1552, Cath (Intra-Procedure), Routine 1424 (Given - Provid er: Gina Frazier MD) midazolam (PF) (VERSED) multi-dose injection (CANCELED) ONCE PRN, Starting on Thu07/26/18 at 1421, Until Thu07/26/18 at 1552, Cath (Intra-Procedure), Routine 1421 (Given - Provid er: [...] (New Bag - Prov ider: Luis Enrique Haney, CHRISTINA) verapamil (ISOPTIN) injection (CANCELED) ONCE PRN, Starting on Thu07/26/18 at 1427, Until Thu07/26/18 at 1552, Administer over 2 Minutes, Cath (Intra-Procedure) 1427 (Given - Provid er: Gina Frazier MD) documented in this encounter Care Teams Bale Sewer Relationship Specialty Start Date End Date Tang Ling MD [address] [place] [id number] PCP - General General Internal Medicine 07/04/16 documented as of this encounter
--- OUTSIDE RECORDS SUMMARY | 2024-05-02 14:24 | XMS_ITS | Encounter Summary ---
Author Organization [facility] Address [facility] [place] [id number] Care Team Providers Care Reel Operator Name Role Phone Tang Ling MD Primary Care Provider Reason for Referral * Diagnostic Test (Routine) - Closed Specialty Diagnoses / Procedures Referred By Vanesa soto Referred To Contact Radiology Diagnoses ASCVD (arteriosclerotic cardiovascular disease) Procedures NM Pharmacologic Stress and Rest Myocardial Perfusion Jeniffer Ventura APRN [facility] [place] [address] [place] [address] Referral ID Status Reason Start Date Expiration Date V isits Requested Visits Authorized [id number] Closed Specialty Service Requested 09/24/2020 03/24/2022 1 1 * Diagnostic Test (Routine) - Closed Specialty Diagnoses / Procedures Referred By Vanesa soto Referred To Contact Radiology Diagnoses ASCVD (arteriosclerotic cardiovascular disease) Procedures NM Pharmacologic Stress CT Component Jeniffer Ventura CASINO CAGE MANAGER [facility] [place] [address] [place] [address] Referral ID Status Reason Start Date Expiration Date V isits Requested Visits Authorized [id number] Closed Specialty Service Requested 09/24/2020 03/24/2022 1 1 Reason for Visit * Consultation (Routine) - Closed Specialty Diagnoses / Procedures Referred By Vanesa soto Referred To Contact Cardiology Diagnoses History of PTCA Coronary artery disease Atypical chest pain Diabetic neuropathy Essential (primary) hypertension Angina pectoris, unspecified Heladio Engel MD [address] [place] [address] [address] [place] [address] [facility] Card[facility] [address] [place] [phone] Referral ID Status Reason Start Date Expiration Date Visits Re quested Visits Authorized [id number] Closed 09/21/2020 09/21/2021 6 6 Encounter Details Date Type Department Care Team (Latest Contact Info) Description 09/24/2020 9:20 AM EST Office Visit Cardiology at [address] [phone] Jeniffer Ventura APRN [facility] [place] [address] ASCVD (arteriosclerotic cardiovascular disease); Encounter for pre-operative cardiovascular clearance Social History Tobacco Use Types Packs/Day Years [...] Sign Reading Time Taken Comments Blood Pressure 138/66 09/24/2020 9:12 AM EST Pulse 81 09/24/2020 9:12 AM EST Temperature - - Respiratory Rate - - Oxygen Saturation 97% 09/24/2020 9:12 AM EST Inhaled Oxygen Concentration - - Weight 67.6 kg (149 lb) 09/24/2020 9:12 AM EST Height 157.5 cm (5' 2) 09/24/2020 9:12 AM EST Body Mass Index 27.25 09/24/2020 9:12 AM EST documented in this encounter Progress Notes * Jeniffer Ventura, CASINO CAGE MANAGER - 09/24/2020 9:20 AM EST Images from the original note were not included. [facility] [address], [place] [address] C[facility] Lou Mo [id number] Primary care provider: Tang Ling MD Referring provider: None Reason for visit: Pre-operative risk assessment for right rotator cuff repair with Dr. Saleem at [facility] HPI: Ms. Mo presents today for a pre-op cardiac risk assessment for right rotator cuff repair surgery (not yet scheduled). She has the following cardiac history: # Coronary artery disease: s/p stent to LAD and D1 in 2015, cath on 07/26/18 showing patent stents and 45% mid LAD stenosis (not hemodynamically significant with iFR and FFR) She reports today that she had been scheduled for a right rotator cuff repair on 09/25/2020, but it was canceled due to need for preop cardiac clearance. She states that since June 2020 she has had very poor activity tolerance, now only able to walk from her chair to the bathroom, about a 20 foot distance. Her activity is limited due to headache, lightheadedness, and severe weakness. She states that she did fall once because her legs gave out on her. She denies syncope, shortness of breath, palpitations, weight gain and lower extremity edema. Her daughter helps her with most household activities, although she is able to dress herself and does receive Meals on Wheels. She does also report intermittent left-sided chest pressure which feels similar to her prior angina. After review of her chart and previous diagnostics since July 2018, including cardiac catheterization with nonobstructive disease, stress echo with no evidence of ischemia (although poor exercisetolerance), and echo in 10/2018 with preserved ejection fraction and no wall motion abnormalities, she does endorse that the symptoms have been occurring for several years, but seem to have worsened in the past several months. I spoke with her primary care provider, Dr. Ling, who verified that her symptoms are chronic in nature, and seemed to worsen after she stopped working at [employer] in the Fall 2019. She has had 84 ER visits this year for chest pain, lightheadedness, weakness. She has had several negative work-ups,including a temporal artery biopsy. Medications: Current Outpatient Medications Medication Sig Dispense Refill ??? insulin degludec (Insulin Tresiba U-100) 100 unit/mL Solution Tresiba U-100 Insulin ??? insulin aspart U-100 (NovoLOG Flexpen U-100 Insulin) Insulin Pen Novolog Flexpen U-100 Insulin per sliding scale ??? citalopram (CeleXA) 20 mg Tablet Take 20 mg by mouth Daily. ??? EPINEPHrine (EpiPen) 0.3 mg/0.3 mL Auto-Injector EpiPen 2-Gwyn 0.3 mg/0.3 mL injection, auto-injector Take 1 auto as needed by injection route. ??? metoprolol succinate (TOPROL-XL) 50 mg Tablet Sustained Release 24 hr Take 0.5 tablets by mouthdaily. 90 tablet 3 ??? nitroGLYcerin (NITROSTAT) 0.4 mg Tablet, Sublingual Place 1 tablet under the tongue every 5 minutes as needed for Chest pain. 90 tablet 12 ??? aspirin 81 mg EC tablet Take 81 mg by mouth daily. ??? rosuvastatin (CRESTOR) 40 mg tablet Take 40 mg by mouth daily. ??? diclofenac (VOLTAREN) 50 mg Tablet, Delayed Release (E.C.) TAKE ONE TABLET BY MOUTH EVERY DAY 5 No current facility-administered medications for this visit. Facility-Administered Medications Ordered in Other Visits Medication Dose Route Frequency Provider Last Rate Last Admin ??? diphenhydrAMINE/aluminum-magnesium hydroxide with simethicone/lidocaine (BMX) oral suspension 5-15 mL Oral Once PRN Gideon Rodriguez MD ROS: General: No fever or chills, no change in weight HEENT: Chronic CARDOSO, no change in vision. No nose, ear or throat discomfort. CV: See HPI GI: No n/v or change in stool pattern, consistency or color. No pain. : No dysuria, nocturia, polyuria, hematuria. MS: Right shoulder pain Neuro: Diffuse chronic weakness, no numbness or incoordination. + dizziness, + lightheadedness, + pre-syncope, no syncope. No speech disturbance. Physical exam: Patient Vitals for the past 24 hrs: Pulse BP SpO2 09/24/20 0912 81 138/66 97 % GEN: Well developed/nourished, appears stated age, NAD, accompanied by daughter, Ladonna HEENT: NCAT Neck: Supple, carotid pulse 2+, no bruits, no JVD Resp: Normal respiratory effort, no rales/rhonchi/wheezing Cor: RRR, normal heart sounds, no murmur Abd: BS+, soft, nontender, no HSM Pulses: 2+ PT/DP Ext: No edema Neuro: AOx3, no focal signs Orthostatics: Laying: HR 70, BP 118/70 Sitting: HR 70, BP 120/60 Standing: HR 76, BP 120/70 Ambulating spO2: HR 78-87 and spO2 93-97% with ambulation ~20 feet, patient did need to stop for lightheadedness and weakness but no associated change in vital signs EKG I personally reviewed the ECG which showed: HR 78, SR, no acute ST abnormalities Diagnostics: No results found for this or any previous visit (from the past 72 hour(s)). ACC/AHA guideline for preop evaluation Assessment and Plan: Ms. Mo is a pleasant 75 year-old female with history of coronary artery disease, status post PCIto LAD and D1 in 2016. In the past 2 years, she has had atypical symptoms, including intermittent chest pain, lightheadedness, diffuse whole body weakness, headache and has undergone extensive work-up through PCP. She has apparently had 84 ED visits in the past year for these symptoms. Cardiology work-up in 2018 and 2019 included cardiac catheterization with nonobstructive coronary artery disease, stress echo without evidence of ischemia, and echocardiogram with preserved ejection fraction and no segmental wall motion abnormalities. Given that she does have a history of coronary artery disease with stent placement and complains ofworsening exertional tolerance and intermittent chest pain in the past several months, I recommended pharmacologic nuclear stress testing prior to proposed right rotator cuff repair. If nuclear stress test does not show evidence of ischemia, then it is reasonable to proceed with surgery. She has noevidence of heart failure. There is some risk inherent to surgery that cannot be significantly altered except through continuation of guideline directed medical therapy throughout the perioperative period and through the usualcareful management of hemodynamics in the perioperative period. In general, minimize risk of perioperative cardiac complications with the following: ?? Aggressive rate-product control ?? Avoidance of perioperative [...] in perioperative management related to cardiac issues I also recommended that the patient participate in a phase 3 cardiac rehab program following surgery to improve her conditioning and exercise tolerance. Thank you for the opportunity to participate in this patient's cardiovascular care. All questions were answered. She will be scheduled for a nuclear stress test and results will be communicated with her, her PCP, and her surgeon. I spent 50 minutes in total on this patient encounter/visit. BEBA Rouse, TOOL AND DIE MACHINIST-BC, CASINO CAGE MANAGER [facility] documented in this encounter Plan of Treatment Upcoming Encounters Date Type Department Care Team (Late st Contact Info) Description 07/06/2024 1:30 PM EST Office Visit Cardiology at [address] [phone] Delta Reyes MD [facility] [place] [address] documented as of this encounter Procedures Procedure Name Priority Date/Time Associated Diagnosis Comments NUCLEAR PHARMACOLOGIC STRESS CARDIOLOGY Routine 10/08/2020 11:42 AM EST ASCVD (arteriosclerotic cardiovascular disease) EKG 12-LEAD Routine 09/24/2020 9:30 AM EST ASCVD (arteriosclerotic cardiovascular disease) documented [...] report, please contact the number below. ? Procedure Note Van Rosenberg MD - 10/08/2020 [...] report, please contact the number below. Jeniffer Ventura APRN IMG NM ORDERABLES * Nuclear Pharmacologic Stress Cardiology (10/08/2020 11:42 AM EST) Anatomical Region Laterality Modality Other Jeniffre Ventura APRN CARDIAC SERVICES O RDERABLES * NM Pharmacologic Stress and Rest Myocardial [...] report, please contact the number below. Jeniffer Ventura CASINO CAGE MANAGER IMG NM ORDERABLES * EKG 12 Lead (09/24/2020 9:30 AM EST) Ventricular rate 78 BPM MUSE SYSTEM Atrial Rate 78 BPM MUSE SYSTEM P-R Interval 176 ms MUSE SYSTEM QRS Duration 78 ms MUSE SYSTEM Q-T Interval 398 ms MUSE SYSTEM QTC Calculated (Bezet) 453 ms MUSE SYSTEM Calculated P Van 53 degrees MUSE SYSTEM Calculated R Van -7 degrees MUSE SYSTEM Calculated T Van 49 degrees MUSE SYSTEM INTERPRETATION Normal sinus rhythm Normal ECG When compared with ECG of 19-OCT-2018 16:20, No significant change was found Confirmed by MD HOGAN SALVATORE ([id number]) on 09/24/2020 9:36:25 AM MUSE SYSTEM 09/24/2020 9:30 AM EST 09/24/2020 9:36 AM EST Jeniffer T Audrey CASINO CAGE MANAGER ECG ORDERABLES MUSE SYSTEM documented in this encounter Visit Diagnoses Diagnosis ASCVD (arteriosclerotic cardiovascular disease) Unspecified cardiovascular disease Encounter for pre-operative cardiovascular clearance Pre-operative cardiovascular examination ASCVD (arteriosclerotic cardiovascular disease) Unspecified cardiovascular disease ASCVD (arteriosclerotic cardiovascular disease) Unspecified cardiovascular disease documented in this encounter Care Teams Reel Operator Relationship Specialty Start Date End Date Tang Ling MD [address] [address] PCP - General General Internal Medicine 07/04/16 documented as of this encounter
--- OUTSIDE RECORDS SUMMARY | 2024-05-02 14:24 | XMS_ITS | Encounter Summary ---
Author Organization [facility] Address [facility] [place] [address] Care Team Providers Care Dehydrogenation Converter Helper Name Role Phone Tang Ling MD Primary Care Provider Encounter Details Date Type Department Care Team (Latest Contact Info) Description 10/19/2018 12:45 PM EDT Laboratory Appointment Lab [address] [place] [phone] Chest pain, unspecified type; Coronary artery disease, angina presence unspecified, unspecified vessel or lesion type, unspecified whether little shell tribe or transplanted heart Social History Tobacco Use [...] PM EST Office Visit Cardiology at [address] [phone] Delta Reyes MD [facility] [place] [address] documented as of this encounter Procedures Procedure Name Priority Date/Time Associated Diagnosis Comments CREATININE STAT 10/19/2018 1:00 PM EDT Chest pain, unspecified type Coronary artery disease, angina presence unspecified, unspecified vessel or lesion type, unspecified whether little shell tribe or transplanted heart documented in this encounter Results * Creatinine (10/19/2018 1:00 PM EDT) Creatinine 0.89 0.70 - 1.20 mg/dL [facility] Est Glomerular Filtration Rate 64 >=60 mL/min/1.7 3 m?? [facility] Comment: The eGFR was calculated using the CKD-EPI equation. As with all creatinine based estimates of kidney function, eGFR values calculated with the CKD-EPI equation are not accurate in patients with acute kidney failure, extremes of body mass or the acutely ill. [email or web address] eGFR 75 >=60 mL/min/1.7 3 m?? [facility] Comment: The eGFR was calculated using the CKD-EPI equation. As with all creatinine based estimates of kidney function, eGFR values calculated with the CKD-EPI equation are not accurate in patients with acute kidney failure, extremes of body mass or the acutely ill. [email or web address] Blood specimen (specimen) 10/19/2018 1:00 PM EDT 10/19/2018 1:11 PM EDT Narrative Resulting Agency Comment Spec In Lab Gideon Rodriguez MD CHEMISTRY ORDERABLES [facility] [place] [address] documented in this encounter Visit Diagnoses Diagnosis Chest pain, unspecified type Coronary artery disease, angina presence unspecified, unspecified vessel or lesion type, unspecified whether little shell tribe or transplanted heart documented in this encounter Care Teams Dehydrogenation Converter Helper Relationship Specialty Start Date End Date Tang Ling MD [address] [place] [id number] PCP - General General Internal Medicine 07/04/16 documented as of this encounter
--- OUTSIDE RECORDS SUMMARY | 2024-05-02 14:24 | XMS_ITS | Encounter Summary ---
Author Organization [facility] [place] [address] Care Team Providers Care Product Support Consultant Name Role Phone Tang Ling MD Primary Care Provider [phone] Encounter Details Date Type Department Care Team (Late st Contact Info) Description 09/08/2018 Telephone Cardiology at [facility] [address] [place] [phone] Eloise Mariscal, RN Social History Tobacco Use Types Packs/Day Years [...] encounter Miscellaneous Notes * Telephone Encounter - Eloise Mariscal, RN - 09/08/2018 12:03 PM EST Patient's Dtr Ladonna left a message- call was returned. Ladonna states that Pt.is getting worse with her current sx that she has seen her regular publications designer, Dr. Mabry, for. Reportedly he told Pt.and Ladonna that there was nothing else he could do for Pt.and that they shouldcall here to [facility]. Also, he did not give them any plan with which to proceed for her care otherwise. Ladonna states Pt.has been feeling near faint, weak and lightheaded, she also has had trouble walkingthe past few weeks. She had a cardiac cath here at on 07/26/18 but does not seek regular care here due to the 2 hour+ drive. Ladonna states they are very disappointed in who has seen Pt.for years. In addition to other sx, she has c/o CP and SOB. Ladonna is very concerned about Pt. Ladonna was advised to call EMS and have Pt.go to the local ED in [place] for immediate assessment. Then they could decide if Pt.needs to see a different publications designer after she is seen.Ladonna agrees to plan and will call EMS. Eloise Mariscal central office maintainer [facility] encounter Plan of Treatment Upcoming Encounters Date Type Department Care Team (Late st Contact Info) Description 07/06/2024 1:30 PM EST Office Visit Cardiology at [address] [phone] Delta Reyes MD [facility] [address] documented as of this encounter Visit Diagnoses Not on filedocumented in this encounter Care Teams Product Support Consultant Relationship Specialty Start Date End Date Tang Ling MD [address] [place] [id number] PCP - General General Internal Medicine 07/04/16 documented as of this encounter
--- OUTSIDE RECORDS SUMMARY | 2024-05-02 14:25 | XMS_ITS | Encounter Summary ---
Author Organization [facility] Address [facility] [place] [address] Care Team Providers Care Four Slide Machine Operator Name Role Phone Tang Ling MD Primary Care Provider Reason for Visit * Auth/Cert Specialty Diagnoses / Procedures Referred By Vanesa soto Referred To Contact Diagnoses Unstable angina [place] NSTEMI Procedures CARDIAC CATHETERIZATION Referral ID Status Reason Start Date Expiration Date Visits Re quested Visits Authorized [id number] 1 1 Encounter Details Date Type Department Care Team (Late st Contact Info) Description 07/05/2016 9:30 AM EST - 07/05/2016 11:04 AM EST [place] [id number] Jamal Vital MD [facility] [place] [address] CARDIAC CATHETERIZATION Social History Tobacco Use Types [...] Sign Reading Time Taken Comments Blood Pressure 105/56 07/06/2016 12:41 PM EST Pulse 63 07/06/2016 12:41 PM EST Temperature 36.4 ??C (97.5 ??F) 07/06/2016 12:[address] Respiratory Rate 16 07/06/2016 12:41 PM EST Oxygen Saturation 98% 07/06/2016 12:41 PM EST Inhaled Oxygen Concentration - - Weight 65.1 kg (143 lb 8.3 oz) 07/06/2016 3:00 A M EST Height 154.9 cm (5' 1) 07/04/2016 6:48 PM EST Body Mass Index 27.12 07/04/2016 6:48 PM EST documented in this encounter Discharge Summaries * Simona Hope PA - 07/06/2016 6:58 AM EST Discharge Summary Patient Name: Lou Mo Patient Age: 70 y.o. Language: Botswanan Race: White Ethnicity: Not nor Admit date: 07/04/2016 Discharge date and time: 07/06/16 Attending Physician: Daniel Alberts MD Discharge Physician: Dr. Alberts Follow-up Recommendations for Providers: Chest pain, DC ruled out, s/p cardiac cath 07/05/16, medical management at this time UTI, she was started on Cipro for 10 days, please repeat U/A in the future Inpatient Provider Contact Information: Cardiology Clinic can be reached at [phone] Discharge Diagnoses (Hospital Problems) and Secondary Diagnoses (Chronic Problems): Active Hospital Problems Diagnosis ??? Stress at home Family members living with her and not helping out. She lost her car due to finances. Grandson is borrowing her car. ??? S/P angioplasty with stent ??? Chest pain Resolved Hospital Problems Diagnosis Date Resolved ??? Unstable angina 07/06/2016 Active Non-Hospital Problems Diagnosis ??? CIS - Chest Pain ??? CIS - DM ??? CIS - Dyslipidemia ??? CIS - GERD ??? CIS - HTN Operations/Major Procedures: Procedure(s) with comments: CARDIAC CATHETERIZATION - Procedure: Coronary Angiography 07/05/16 - no PCI, medical management Echo 07/05/16 SUMMARY: ?? 1. The left ventricular chamber [...] 5. There is mild (1+/4+) mitral regurgitation present. History of Presentation: Floyd is a 70 yr old female with H/O CAD/ASCVD - Multiple caths 1995,2009,2012- non obstructive diease, but last cath on 05/28/2016 for unstable angina with NIESHA to 85% mid LAD and 85% of the proximalD1 lesion, last ECHO 2010-EF 65% with no RWMA, HTN,HLD,DM2,GERD and family h/o CAD in the mother atthe age of 60 who came to the [facility] for the chest pain/ angina seen and re ferred by for the cardiac cath. ?? Pt was felt better for 2 weeks after the stents placed on 05/28/16, then started to have weakness, fatigue and these chest pains on and off with exertion as well as some times with rest. Her pain relieved with rest if she gets the exertional chest pain. She visited the [facility] 2 times this week for the chest pains. Initially she went to the [facility] for chest pain on Thursday of this week and work up negative for the heart attack, sent home. Again she had the chest pain at rest on 07/03/2016 around 8 amwith nausea and diaphoresis, called the PCP, advised to take nitro which did not help, went to ED. Pain lasted for 30 minutes, substernal radiating to the left side neck. She had these kind of on andoff pains for 3 to 4 episodes in the OSH, received nitro and aspirin which seems some times helpful. Seen by today advised to start the heparin drip and transferred to [facility] for the cath given possible Unstable angina. Her work up as per the records was normal with EKG and troponin at the OSH. ?? Endorses some NARVAEZ, diaphoresis, nausea,dizziness and palpitations with the chest pain. No relation to the breathing or position. Compliant with the meds regularly. No pedal edema and weight gain. ?? On arrival here she has no chest pain but has mild back pain 2/10. ?? On arrival at the OSH vitals- 113/53, 74,16, 95% on RA and chest pain 5/10. OSH medications- aspirin 324, heparin drip, nitro sub lingual. OSH labs prior to transfer: Troponin -0.06, pro bnp- 230 EKG - no acute changes cxr- no acute changes HB-12.5, plt 129 Cr-0.8, K- 4 ?? Cardiac history: Caths 1995,2009 and 2012- non obstructive CAD Cath 05/28/2016- NIESHA to the 85% of mid LAD and 85% of the prox D1 lesion. Prox LAD has 35% stenosis. Echo 2010- EF 65% no RWMA Home medications: Aspirin 81 Plavix 75 Benadryl 25 prn Metoprolol 50 bid Crestor 40 daily Nitro 0.4 sub ling Gabapentin 100 mg at the bed time Metformin 1000 bid Glipizide 2.5 mg daily ?? Cardiac RF profile significant for HTN, HL, DM2, family history, . Hospital Course: On admission to [facility], the patient had no complaints of chest pain or shortness of breath. Telemetry was attached which showed normal sinus rhythm. Heparin drip was infusing. [facility] records/transfer records were reviewed. Baseline labs were checked and/or drawn. Chest Pain, DC ruled out Given the patient's risk factors, ECG changes, positive biomarkers, it was decided to proceed with coronary angiography. The patient went to the cardiac laboratory monitor for a diagnostic cath which showed noPCI needed at this time. She will be medically managed. In the future she may benefit from startingnorvasc. Hyperlipidemia Lipid profile showed total cholesterol 119 with LDL of 100. Patient has been on crestor. No changeswere made. Hypertension Her BP was 106/44 and HR was 61. No changes were made to her medications at this time. She may needto try norvasc in the future. UTI She was found to have a UTI and was started on Cipro for 10 days. Please follow- up on this as an out patient. Routine screening labs revealed the following: HA1c to be checked as an out patient and the TSH was0.98. Smoking cessation was advised & discussed. The patient was evaluated by the cardiac rehab team. The patient tolerated supervised ambulation inthe hallway and up/downstairs with no anginal symptoms. It was recommended that the patient return home and participate in a supervised cardiac rehab program. The patient was discharged home in stable condition. Functional and Cognitive Status: stable Important Studies and Lab Data: Labs: Lab Results Component Value Date WBC 6.2 07/06/2016 HGB 11.3 (L) 07/06/2016 HCT 32.5 (L) 07/06/2016 PLATELET 107 (L) 07/06/2016 Recent Labs 07/04/16 1851 INR 1.1 Lab Results Component Value Date NA 143 07/05/2016 K 3.7 07/05/2016 CL 103 07/05/2016 CO2 26 07/05/2016 BUN 17 07/05/2016 CREATININE 0.85 07/05/2016 Recent Labs 07/04/16 1851 TSH 0.98 No results for input(s): HA1C in the last 7068 hours. Recent Labs 07/05/16 0158 07/04/16 1851 CK 58 68 TROPONINT <0.03 <0.03 Lab Results Component Value Date CHLPL 119 07/04/2016 HDL 46 07/04/2016 CHOLHDL 2.6 07/04/2016 TRIG 83 07/04/2016 LDLCHOL 56 07/04/2016 LDLDIRECT 100 (H) 06/11/2013 Discharge Conditions/Prognosis: stable Discharge to: home Updated Allergies/ADRs: Allergies Allergen Reactions ??? Cis Free Text Allergy Hymenoptera (Bee) Stings. ??? Ibuprofen HIVES Immunizations Given this Hospitalization: Immunization History Administered Date(s) Administered ??? Influenza PF, Split (High Dose) 05/29/2016 ??? Influenza Vaccine, Whole 05/29/2008 Discharge Medications: Your Medications New Medications Dose Details ciprofloxacin 250 mg Tab Commonly known as: CIPRO Take 1 tablet by mouth 2 times daily. 250 mg Quantity: 20 tablet Refills: 0 Continued medications, unchanged Dose Details aspirin 81 mg Tbec Take 81 mg by mouth daily. 81 mg Refills: 0 clopidogrel 75 mg Tab Commonly known as: PLAVIX Take 1 tablet by mouth daily. 75 mg Quantity: 30 tablet Refills: 11 diphenhydrAMINE 25 mg Tab Commonly known as: BENADRYL Take 25 mg by mouth nightly as needed. 25 mg Refills: 0 metFORMIN 1,000 mg Tab Commonly known as: GLUCOPHAGE Take 1,000 mg by mouth 2 times daily (with meals). 1000 mg Refills: 0 meTOPROLOL tartrate 50 mg Tab Commonly known as: LOPRESSOR Take 50 mg by mouth 2 times daily. 50 mg Refills: 0 nitroGLYcerin 0.4 mg Subl Commonly known as: NITROSTAT Place 1 tablet under the tongue every 5 minutes as needed for Chest pain. 0.4 mg Quantity: 90 tablet Refills: 12 rosuvastatin 40 mg Tab Commonly known as: CRESTOR Take 40 mg by mouth daily. 40 mg Refills: 0 Smoking Status at Discharge: History Smoking Status ??? Never Smoker Smokeless Tobacco ??? Never Used Instructions Given to Patient at Discharge: There are no outpatient Patient Instructions on file for this admission. General Instructions Anti-coagulation follow up: n/a Call your doctor if: Chest pain, shortness of breath, pain or swelling in legs occurs. If you have non-emergent questions between now and the time of your follow up appointments: During 8am-5pm Thursday through Thursday call [phone] to speak with a nurse in the cardiology clinic All other times call [phone] and ask to speak to the blower mechanic electronics warfare technician. Return to work: One week Driving: No driving for 48 hours after catheterization. Follow up Appointments: PCP Tang Ling MD [phone] to see you in a week. Please set a date and time that will work for you. Bar [address] Dr. Mabry to see you in 4-6 weeks from now in [place], [place]. Please call [phone] to set date and time that will work for you. Home oxygen therapy: N/A Arrangements for VNA/home care: none Discharge References/Attachments None documented in this encounter Discharge Instructions * Discharge Instructions* Simona Hope PA - 07/06/2016 10:41 AM EST Anti-coagulation follow up: n/a Call your doctor if: Chest pain, shortness of breath, pain or swelling in legs occurs. If you have non-emergent questions between now and the time of your follow up appointments: During 8am-5pm Thursday through Thursday call [phone] to speak with a nurse in the cardiology clinic All other times call [phone] and ask to speak to the blower mechanic electronics warfare technician. Return to work: One week Driving: No driving for 48 hours after catheterization. Follow up Appointments: PCP Tang Ling MD [phone] to see you in a week. Please set a date and time that will work for you. [address] Dr. Mabry to see you in 4-6 weeks from now in [place], [place]. Please call [phone] to set date and time that will work for you. Home oxygen therapy: N/A Arrangements for VNA/home care: none documented in this encounter Medications at Time [...] needed. 07/22/2017 documented as of this encounter Progress Notes * Joycelyn Combs RN - 07/06/2016 1:03 PM EST IVs pulled. Discontinued from telemetry. Patient state understanding of cath site precautions and discharge summary. Daughter wheeled patient to family vehicle and daughter is driving home. * Simona Hope PA - 07/06/2016 6:59 AM EST Inpatient Cardiology Progress Note Patient Name: Lou Mo Service: ACQUISITION LEAD / PA Responsible Attending: Daniel Alberts MD Reason for continued hospitalization: Home today Active Problems: Active Hospital Problems Diagnosis ??? Stress at home Family members living with her and not helping out. She lost her car due to finances. Grandson is borrowing her car. ??? S/P angioplasty with stent ??? Chest pain Resolved Hospital Problems Diagnosis Date Resolved ??? Unstable angina 07/06/2016 Interval History: Patient is going home today. Review of Systems: Review of Systems Constitutional: Negative. HENT: Negative. Eyes: Negative. Respiratory: Positive for chest tightness and shortness of breath. Cardiovascular: Positive for chest pain. Endocrine: Negative. Genitourinary: Negative. Allergic/Immunologic: Negative. Neurological: Negative. Hematological: Negative. Telemetry: HR: 65 sinus rhythm Meds: Scheduled Meds: ??? ciprofloxacin 250 mg Oral BID ??? aspirin 81 mg Oral Daily ??? clopidogrel 75 mg Oral Daily ??? meTOPROLOL tartrate 50 mg Oral BID ??? rosuvastatin 40 mg Oral Daily ??? sodium chloride 0.9 % 5 mL Intravenous BID ??? famotidine 20 mg Oral BID ??? docusate sodium 100 mg Oral BID ??? insulin lispro 1-4 Units Subcutaneous TID AC Continuous Infusions: PRN Meds:nitroGLYcerin, sodium chloride 0.9 %, lidocaine, dextrose 50% OR glucagon (human recombinant), LORazepam, morphine Physical Exam: Vital Signs: Last value Range last 24 hrs Temperature Temp: 36.6 ??C (97.9 ??F) Temp: [36.5 ??C (97.7 ??F)-37.1 ??C (98.8 ??F)] Heart Rate Heart Rate: 71 Heart Rate: [57-74] Blood Pressure BP: 119/60 BP: (96-119)/(43-60) Respiratory Rate Resp: 16 Resp: [12-18] SpO2 SpO2: 95 % SpO2: [94 %-100 %] Physical Exam Constitutional: She is oriented to person, place, and time. She appears well- developed and well-nourished. No distress. HENT: Head: Normocephalic and atraumatic. Eyes: No scleral icterus. Cardiovascular: Normal rate and regular rhythm. Exam reveals no gallop and no friction rub. No murmur heard. Pulmonary/Chest: No respiratory distress. She has [...] mood and affect. Her behavior is normal. Thought content normal. Lab Comments: Recent Labs 07/06/16 0515 07/05/16 0158 07/04/16 1851 WBC 6.2 7.8 8.4 HGB 11.3* 11.8 13.0 HCT 32.5* 34.1* 37.9 PLATELET 107* 124* 158 Recent Labs 07/04/16 1851 INR 1.1 Recent Labs 07/05/16 0158 07/04/16 1851 NA 143 144 K 3.7 4.0 CL 103 102 CO2 26 29 BUN 17 14 CREATININE 0.85 0.97 Recent Labs 07/04/16 1851 AST 17 ALT 12 ALKPHOS 62 BILITOT 0.3 BILIDIR 0.1 Recent Labs 07/05/16 0158 07/04/16 1851 CALCIUM 8.9 9.4 MAGNESIUM 0.78 0.82 Recent Labs 07/05/16 0158 07/04/16 1851 CK 58 68 TROPONINT <0.03 <0.03 Pertinent Radiographic/Diagnostic Results: Cardiac Cath: no PCI, medical management Assessment: Lou Mo is a 70 y.o. female with known ASCVD, s/p NIESHA to LAD and NIESHA to D1 inOctober 2015. Here with ongoing chest pain radiating to her back. Not relieved with one NTG. She iss/p cardiac cath. No PCI. Patient is going home on medication. Stable Plan: 1. Chest pain at rest, DC ruled out, s/p cardiac cath and no changes seen Continue telemetry monitoring Home today Consider starting norvasc as an out patient 2. HTN BP 135/56 Continue above medications Monitor trends 3. Dsylipidemia Continue statin Check lipids and LFTs 4. UTI Cipro started Follow 5. Full Code Patient seen and discussed with Dr. Alberts. ANALI JULES 07/06/2016 Pager [phone] Associated attestation - Daniel Alberts MD - 07/06/2016 10:48 PM EST Cardiology Attending Addendum I shared this visit with ANALI Hope and guided the medical decision-making. More than 30 minutes were spent in [id number] contact with patient and with arranging discharge and coordinating follow-up. * Simona Hope PA - 07/05/2016 7:12 AM EST Inpatient Cardiology Progress Note Patient Name: Lou Mo Service: ACQUISITION LEAD / PA Responsible Attending: Daniel Alberts MD Reason for continued hospitalization: Awaiting cardiac catherization Active Problems: Active Hospital Problems Diagnosis ??? Unstable angina Resolved Hospital Problems Diagnosis Date Resolved No resolved problems to display. Interval History: Patient is having ongoing 3/10 chest pain radiating to her back. Troponin negative x 2. Heparin gtt and nitro gtt ordered. Hydration pre-cath. Review of Systems: Review of Systems Constitutional: Negative. HENT: Negative. Eyes: Negative. Respiratory: Positive for chest tightness and shortness of breath. Cardiovascular: Positive for chest pain. Endocrine: Negative. Genitourinary: Negative. Allergic/Immunologic: Negative. Neurological: Negative. Hematological: Negative. Telemetry: HR: 65 sinus rhythm Meds: Scheduled Meds: ??? [Oct] bolus IV fluid Intravenous Once ??? [OCT Hold] aspirin 81 mg Oral Daily ??? [OCT Hold] clopidogrel 75 mg Oral Daily ??? [OCT Hold] meTOPROLOL tartrate 50 mg Oral BID ??? [OCT Hold] rosuvastatin 40 mg Oral Daily ??? [OCT Hold] sodium chloride 0.9 % 5 mL Intravenous BID ??? [OCT Hold] famotidine 20 mg Oral BID ??? [OCT Hold] docusate sodium 100 mg Oral BID ??? [OCT Hold] insulin lispro 1-4 Units Subcutaneous TID AC Continuous Infusions: ??? [OCT Hold] nitroGLYcerin ??? [OCT Hold] sodium chloride 0.9% 100 mL/hr (07/05/16 0746) ??? [OCT Hold] heparin (porcine) Stopped (07/05/16 09) PRN Meds:fentaNYL (PF), [OCT Hold] nitroGLYcerin, [OCT Hold] sodium chloride 0.9 %, [OCT Hold] lidocaine, [OCT Hold] dextrose 50% OR [OCT Hold] glucagon (human recombinant), [OCT Hold] heparin (porcine) AND [OCT Hold] heparin (porcine), [OCT Hold] acetaminophen, [OCT Hold] LORazepam, [OCT Hold] morphine Physical Exam: Vital Signs: Last value Range last 24 hrs Temperature Temp: 36.6 ??C (97.9 ??F) Temp: [36.6 ??C (97.9 ??F)-36.7 ??C (98.1 ??F)] Heart Rate Heart Rate: 60 Heart Rate: [59-68] Blood Pressure BP: 99/47 BP: (52-123)/(36-71) Respiratory Rate Resp: 15 Resp: [15-17] SpO2 SpO2: 92 % SpO2: [92 %-96 %] Physical Exam Constitutional: She is oriented to person, place, and time. She appears well- developed and well-nourished. No distress. HENT: Head: Normocephalic and atraumatic. Eyes: No scleral icterus. Cardiovascular: Normal rate and regular rhythm. Exam reveals no gallop and no friction rub. No murmur heard. Pulmonary/Chest: No respiratory distress. She has [...] mood and affect. Her behavior is normal. Thought content normal. Lab Comments: Recent Labs 07/05/16 0158 07/04/16 1851 WBC 7.8 8.4 HGB 11.8 13.0 HCT 34.1* 37.9 PLATELET 124* 158 Recent Labs 07/04/16 1851 INR 1.1 Recent Labs 07/05/16 0158 07/04/16 1851 NA 143 144 K 3.7 4.0 CL 103 102 CO2 26 29 BUN 17 14 CREATININE 0.85 0.97 Recent Labs 07/04/16 1851 AST 17 ALT 12 ALKPHOS 62 BILITOT 0.3 BILIDIR 0.1 Recent Labs 07/05/16 0158 07/04/16 1851 CALCIUM 8.9 9.4 MAGNESIUM 0.78 0.82 Recent Labs 07/05/16 0158 07/04/16 1851 CK 58 68 TROPONINT <0.03 <0.03 Pertinent Radiographic/Diagnostic Results: Cardiac Cath: Assessment: Lou Mo is a 70 y.o. female with known ASCVD, s/p NIESHA to LAD and NIESHA to D1 inOctober 2015. Here with ongoing chest pain radiating to her back. Not relieved with one NTG. Patient is on a heparin gtt and nitro gtt now. NPO for cardiac cath. Stable Plan: 1. Chest pain at rest Continue telemetry monitoring Heparin gtt Nitro gtt Consented for cath Hydrate pre-cath NPO 2. HTN BP 135/56 Continue above medications Monitor trends 3. Dsylipidemia Continue statin Check lipids and LFTs 4. Full Code Patient seen and discussed with Dr. Alberts. ANALI JULES 07/05/2016 Pager [phone] Associated attestation - Daniel Alberts MD - 07/05/2016 10:08 PM EST Cardiology Attending Addendum I shared this visit with ANALI Hope and guided the medical decision- making. On coronary angiogram today, a proximal LAD stenosis was visualized but by IFR and FFR was not significant. Thus, will treat medically. Etiology of her chest/back pain is not clear though. * Jr Ball, RN - 07/04/2016 7:49 PM EST Pt arrived to unit@ 1845. VSS. Denies CP/SOB. Heparin @800 units/hr, continuing from OSH. Sats in mid 90's on RA. Will cont to monitor. documented in this encounter H&P Notes * Martha Rubalcava MD - 07/04/2016 6:43 PM EST Cardiology Admission History and Physical Patient Name: Lou Mo Service: cardiology/ACQUISITION LEAD/PA Responsible Attending: PCP: Tang Ling MD PCP phone #: [phone] ID/Chief Complaint: Chest pains on and off for a week History of Present Illness: Floyd is a 70 yr old female with H/O CAD/ASCVD - Multiple caths 1995,2009,2012- non obstructive diease, but last cath on 05/28/2016 for unstable angina with NIESHA to 85% mid LAD and 85% of the proximalD1 lesion, last ECHO 2010-EF 65% with no RWMA, HTN,HLD,DM2,GERD and family h/o CAD in the mother atthe age of 60 who came to the [facility] for the chest pain/ angina seen and re ferred by for the cardiac cath. Pt was felt better for 2 weeks after the stents placed on 05/28/16, then started to have weakness, fatigue and these chest pains on and off with exertion as well as some times with rest. Her pain relieved with rest if she gets the exertional chest pain. She visited the [facility] 2 times this week for the chest pains. Initially she went to the [facility] for chest pain on Thursday of this week and work up negative for the heart attack, sent home. Again she had the chest pain at rest on 07/03/2016 around 8 amwith nausea and diaphoresis, called the PCP, advised to take nitro which did not help, went to ED. Pain lasted for 30 minutes, substernal radiating to the left side neck. She had these kind of on andoff pains for 3 to 4 episodes in the OSH, received nitro and aspirin which seems some times helpful. Seen by today advised to start the heparin drip and transferred to [facility] for the cath given possible Unstable angina. Her work up as per the records was normal with EKG and troponin at the OSH. Endorses some NARVAEZ, diaphoresis, nausea,dizziness and palpitations with the chest pain. No relation to the breathing or position. Compliant with the meds regularly. No pedal edema and weight gain. On arrival here she has no chest pain but has mild back pain 2/10. On arrival at the OSH vitals- 113/53, 74,16, 95% on RA and chest pain 5/10. OSH medications- aspirin 324, heparin drip, nitro sub lingual. OSH labs prior to transfer: Troponin -0.06, pro bnp- 230 EKG - no acute changes cxr- no acute changes HB-12.5, plt 129 Cr-0.8, K- 4 Cardiac history: Caths 1995,2009 and 2012- non obstructive CAD Cath 05/28/2016- NIESHA to the 85% of mid LAD and 85% of the prox D1 lesion. Prox LAD has 35% stenosis. Echo 2010- EF 65% no RWMA Home medications: Aspirin 81 Plavix 75 Benadryl 25 prn Metoprolol 50 bid Crestor 40 daily Nitro 0.4 sub ling Gabapentin 100 mg at the bed time Metformin 1000 bid Glipizide 2.5 mg daily Cardiac RF profile significant for HTN, HL, DM2, family history, . YAHAIRA score 5 Age > 65 [x] 3+ Cardiac RF [x] Prior stenosis >50% [x] ST deviation on EKG [] 2 anginal episodes last 24 hrs [x] Elevated biomarkers [] Aspirin use past 7 days [x] Review of Systems: negative except as stated. GENERAL HEENT CV PULM All negative x All negative All negative All negative Weight loss Headache x Chest Pain Non-productive cough Weight gain Vision change x Palpitations Productive cough Fevers Sinus congestion Orthopnea Wheezing Chills Hoarseness LE edema Hemoptysis Night sweats Epistaxis PND Pleuritic pain x Fatigue Syncope x SOB Claudication x NARVAEZ MSK RENAL ENDO GI All negative x All negative x All negative x All negative Arthralgias Frequency Heat intolerance Blood in stool Myalgias Urgency Cold intolerance Dysphagia x Weakness Hematuria Polydipsia Odynophagia Stiffness Flank pain Polyphagia Abdominal discomfort Dysuria Cushingoid Constipation Foamy urine Diarrhea Discharge Nausea/Vomiting LYMPH SKIN NEURO PSYCH x All negative x All negative x All negative x All negative Swollen nodes Rash Seizures Depressed affect Tender nodes Ulcers Tremors Occupational stress Diffuse nodes Bruising Spasticity Anxiety Local nodes Tanned skin Focal weakness Insomnia Night sweats Telangiectasias Diplopia Paresthesias Dizziness Problem List/Past Medical History Patient Active Problem List Diagnosis ??? S/P angioplasty with stent ??? Chest pain ??? Unstable angina ??? CIS - Chest Pain ??? CIS - DM ??? CIS - Dyslipidemia ??? CIS - GERD ??? CIS - HTN Past Medical History Diagnosis Date ??? Allergic state ??? Cataract ??? Diabetes mellitus 1996 Type 2 NIDDM, dx 1996 ??? Dyslipidemia ??? GERD (gastroesophageal reflux disease) ??? Hyperlipidemia ??? Hypertension ??? Thyroid disease thyroid nodule has been biopsied and is benign Meds: No current facility-administered medications on file prior to encounter. Current Outpatient Prescriptions on File Prior to Encounter Medication Sig Dispense Refill ??? clopidogrel (PLAVIX) 75 mg Tablet Take 1 tablet by mouth daily. 30 tablet 11 ??? nitroGLYcerin (NITROSTAT) 0.4 mg Tablet, Sublingual Place 1 tablet under the tongue every 5 minutes as needed for Chest pain. 90 tablet 12 ??? metFORMIN (GLUCOPHAGE) 1,000 mg Tablet Take 1,000 mg by mouth 2 times daily (with meals). ??? aspirin 81 mg EC tablet Take 81 mg by mouth daily. ??? metoprolol tartrate (LOPRESSOR) 50 mg tablet Take 50 mg by mouth 2 times daily. ??? rosuvastatin (CRESTOR) 40 mg tablet Take 40 mg by mouth daily. ??? diphenhydrAMINE (BENADRYL) 25 mg tablet Take 25 mg by mouth nightly as needed. At home meds reveiwed Allergies: Allergies Allergen Reactions ??? Cis Free Text Allergy Hymenoptera (Bee) Stings. ??? Ibuprofen HIVES Family History: Mother: CAD at the age of 60 Social History: Tobacco: never EtOH: never Illicits:none Living Situation:lives with son Vitals: Last value Range last 24 hrs Temperature Temp: -- Heart Rate Heart Rate: [61] Blood Pressure BP: ()/() Respiratory Rate Resp: [17] SpO2 SpO2: -- Examination: General: Pleasant, alert, appropriate, in NAD. Appears stated age. HEENT: EOMI, PERRL, anicteric sclera. Oropharynx clear w/o lesions. Moist mucous membranes Neck: Supple with normal ROM. No obvious LAD. JVD ~normal Cardiac: Normal S1 and S2, Regular rate and rhythm; No murmrs/gallops/rubs. Respiratory: Nonlabored. Clear to auscultation bilaterally; No wheezes/ rhonchi/ rales. Abd: + BS; soft, non-tender, non-distended, no obvious masses. Ext: WWP without le edema, cyanosis or clubbing. DPP 2+ bilaterally. Neuro: II-XII grossly intact. Alert and orientated, no-focal deficits, sensation intact to crude touch Skin: No rashs, no lesions, no petechiae Laboratory: Recent Labs 07/04/16 185 WBC 8.4 HGB 13.0 HCT 37.9 PLATELET 158 Recent Labs 07/04/16 185 NA 144 K 4.0 CL 102 CO2 29 BUN 14 CREATININE 0.97 Recent Labs 07/04/16 185 AST 17 ALT 12 ALKPHOS 62 BILITOT 0.3 BILIDIR 0.1 Recent Labs 07/04/16 185 CALCIUM 9.4 Recent Labs 07/04/16 185 CK 68 TROPONINT <0.03 Recent Labs 07/04/16 185 PT 14.5 PTT 118* INR 1.1 Diagnostic Studies: EKG- nsr with no acute changes. CXR- no acute abnormality ASSESSMENT: Floyd is a 70 yr old female with H/O CAD/ASCVD - Multiple caths 1995,2009,2012- non obstructive diease, but last cath on 05/28/2016 for unstable angina with NIESHA to 85% mid LAD and 85% of the proximalD1 lesion, last ECHO 2010-EF 65% with no RWMA, HTN,HLD,DM2,GERD and family h/o CAD in the mother atthe age of 60 who came to the [facility] for the chest pain/ unstable angina seen and referred by for the cardiac cath. YAHAIRA score - 5 Neha score- 134 PLAN: 1) Unstable angina # Admit to [facility] # Trend the cardiac enzymes - So far 2 sets of trop T negative. # Echo in AM # Heparin drip as per protocol # Aspirin 81, plavix 75, metoprolol 50 bid # crestor 40mg, nitro prn # Morphine prn for pain # Hold the ACEI for now- anticipated for cath in AM. # Keep NPO 2) HTN - stable on metoprolol 50 bid 3)HLD- lipid panel LDL 56, hdl 46 / crestor 40 mg daily 4)DM2- SSI Hold the metformin and glipizide 5)?Anxiety component- add lorazepam 0.5 mg bid Code Status: full Martha Rubalcava MD [facility], 07/04/2016 documented in this encounter Miscellaneous Notes * Plan of Care - Elizabeth Giordano RN - 07/05/2016 9:51 PM EST Problem: Patient Care Overview Goal: Plan of Care Review Outcome: Ongoing (Interventions Implemented as Appropriate) 07/05/162144 Coping/Psychosocial Plan Of Care Reviewed With patient;daughter Plan of Care Review Progress no change OUTCOME EVALUATION NOTE: OUTCOME SUMMARY: Right groin cath site is covered with gauze and tape and dressing is CDI with no drainage. Pt rating 5/10 back pain this shift that pt states is her form of chest pain. notified and stated to administer prn morphine. Post cath fluids running until ~0300 this AM. Antibiotic ordered d/t urinalysisresults. BS 181 this evening, provider notified and would not like insulin coverage. Pt in NSR. Will continue to assess and monitor. PLAN MOVING FORWARD: D/c home tomorrow. INDIVIDUALIZED FALL PREVENTION INTERVENTIONS: Patient-specific fall risk factors per assessment: [current deficits]: ECG leads, IV sites Assistance [level of assistance required for transfers and ambulation]: Standby assist Supervision [direct monitoring required during toileting and ADLs]: Intermittent, call jaimes within reach, ringing appropriately Surveillance [continuous indirect monitoring]: Telemetry, purposeful rounding CPG GOAL OUTCOME EVALUATION: Ongoing Goal: Individualization & Mutuality Outcome: Ongoing (Interventions Implemented as Appropriate) 07/05/162144 Mutuality/Individual Preferences What Anxieties, Fears or Concerns Do You Have About Your Health or Care? none What Questions Do You Have About Your Health or Care? none What Information Would Help Us Give You More Personalized Care? none Goal: Fall Prevention-Safe Patient Handling Outcome: Ongoing (Interventions Implemented as Appropriate) 07/05/16 1751 07/05/16191907/05/162144 Musculoskeletal Interventions Muscle Strengthening -- -- activity/mobility promoted;mobility in bed promoted Daily Care Interventions Self-Care Promotion -- independence encouraged;BADL personal objects within reach -- Restraint Interventions Safety Promotion/Fall Prevention -- safety round/check completed -- Positioning Body Position -- up in chair -- Activity and Safety Assistive Device None -- -- [place] Fall Risk History of Falling -- 0 -- Secondary Diagnosis -- 15 -- Ambulatory Aids -- 0 -- Intravenous Therapy/Heparin/Saline Lock -- 20 -- Gait/Transferring -- 0 -- Mental Status -- 0 -- Score -- 35 -- OTHER [place] Fall Risk -- Med -- Goal: Infection Control Outcome: Ongoing (Interventions Implemented as Appropriate) 07/05/161919 Safety Interventions Isolation Precautions standard precautions maintained Infection Prevention rest/sleep promoted;environmental surveillance performed Coping Strategies Supportive Measures active listening utilized;verbalization of feelings encouraged Goal: Discharge Needs Assessment Outcome: Ongoing (Interventions Implemented as Appropriate) 07/05/162144 Discharge Needs Assessment Concerns To Be Addressed no discharge needs identified Readmission Within The Last 30 Days no previous admission in last 30 days Equipment Needed After Discharge none Discharge Disposition home or self-care Current Health Anticipated Changes Related to Illness none Activity/Self Care Review of Systems Equipment Currently Used at Home none Living Environment Transportation Available family or friend will provide Problem: Pain, Acute (Adult) Intervention: Monitor/Manage Analgesia 07/05/16191907/05/162099 Manage Acute Burn Pain Bowel Intervention adequate fluid intake promoted -- Pain Management Interventions -- (medicated with prn morphine) Safety Interventions Medication Review/Management medications reviewed -- Intervention: Mutually Develop/Implement Acute Pain Management Plan 07/05/16 2100 07/05/162144 Manage Acute Burn Pain Pain Management Interventions (medicated with prn morphine) -- Cognitive Interventions Sensory Stimulation Regulation -- quiet environment promoted;care clustered Intervention: Support/Optimize Psychosocial Response to Acute Pain 07/05/16191907/05/162144 Coping Strategies Supportive Measures active listening utilized;verbalization of feelings encouraged -- Family/Support System Care -- caregiver stress acknowledged Trust Relationship/Rapport care explained;choices provided;questions answered;questions encouraged;thoughts/feelings acknowledged -- Goal: Identify Related Risk Factors and Signs and Symptoms Related risk factors and signs and symptoms are identified upon initiation of Human Response Clinical Practice Guideline (CPG) Outcome: Ongoing (Interventions Implemented as Appropriate) 07/05/165 Pain, Acute Related Risk Factors (Acute Pain) procedure/treatment;infection Goal: Acceptable Pain Control/Comfort Level Patient will demonstrate the desired outcomes by discharge/transition of care. Outcome: Ongoing (Interventions Implemented as Appropriate) 07/05/162144 Pain, Acute (Adult) Acceptable Pain Control/Comfort Level making progress toward outcome Problem: Cardiac Cath/Percutaneous Coronary Intervention (Adult) Intervention: Prevent/Manage Vascular Access Site Complications 07/05/161919 Activity Activity Type ambulated to bathroom Intervention: Maintain Extremity in Straight Position Post Procedure 07/05/161919 Positioning Body Position up in chair Goal: Signs and Symptoms of Listed Potential Problems Will be Absent, Minimized or Managed (CardiacCath/Percutaneous Coronary Intervention) Signs and symptoms of listed potential problems will be absent, minimized or managed by discharge/transition of care (reference Cardiac Cath/Percutaneous Coronary Intervention (Adult) CPG). Outcome: Ongoing (Interventions Implemented as Appropriate) 07/05/162144 Cardiac Cath/Percutaneous Coronary Intervention Problems Assessed (Cardiac Catheterization) all Problems Present (Cardiac Catheterization) pain * Plan of Care - Joycelyn Combs RN - 07/05/2016 6:02 PM EST Problem: Patient Care Overview Goal: Plan of Care Review Outcome: Ongoing (Interventions Implemented as Appropriate) 07/05/16 1751 Coping/Psychosocial Plan Of Care Reviewed With patient Plan of Care Review Progress improving OUTCOME EVALUATION NOTE: OUTCOME SUMMARY: Beginning of shift patient had anginal equivalent pain 3/10 ache behind her heart in her back. Two SL nitroglycerin given and BP dropped to SBP 50's. CP dropped to 2/10. No further interventions tillcath, per MD. Patient put in [place] and immediately BP increased and symptoms resolved. Patient head slowly elevated. Went to laboratory monitor with no interventions. Returned right groin dressing C/D/I. +1 pulse in RLE.Denied numbness and pain. No hematoma. Patient ambulated to bathroom after bedrestright groin dressing c/d/i. No further CP. U/A sent to lab. PLAN MOVING FORWARD: Discharge tomorrow INDIVIDUALIZED FALL PREVENTION INTERVENTIONS: Patient-specific fall risk factors per assessment: [current deficits]: IV fluids, telemetry wires, unfamiliar environment Assistance [level of assistance required for transfers and ambulation]: SBA Supervision [direct monitoring required during toileting and ADLs]: Call jaimes in reach, rings appropriately Surveillance [continuous indirect monitoring]: tele Goal: Fall Prevention-Safe Patient Handling Outcome: Ongoing (Interventions Implemented as Appropriate) 07/05/16 0800 07/05/16 175 Musculoskeletal Interventions Muscle Strengthening -- activity/mobility promoted Daily Care Interventions Self-Care Promotion -- independence encouraged;BADL personal objects within reach;BADL personal routines maintained;meal setup provided Restraint Interventions Safety Promotion/Fall Prevention -- safety round/check completed;toileting scheduled;nonskid shoes/slippers when out of bed;fall prevention program maintained Positioning Body Position -- up in chair Activity and Safety Assistive Device -- None [place] Fall Risk History of Falling 0 -- Secondary Diagnosis 15 -- Ambulatory Aids 0 -- Intravenous Therapy/Heparin/Saline Lock 20 -- Gait/Transferring 10 -- Mental Status 0 -- Score 45 -- OTHER [place] Fall Risk Med -- Goal: Infection Control Outcome: Ongoing (Interventions Implemented as Appropriate) 07/05/16 0800 07/05/16 175 Safety Interventions Isolation Precautions -- standard precautions maintained Infection Prevention -- single patient room provided Coping Strategies Supportive Measures active listening utilized -- * Plan of Care - Elizabeth Giordano RN - 07/04/2016 10:57 PM EST Problem: Patient Care Overview Goal: Plan of Care Review Outcome: Ongoing (Interventions Implemented as Appropriate) 07/04/16 7861 Coping/Psychosocial Plan Of Care Reviewed With patient Plan of Care Review Progress no change OUTCOME EVALUATION NOTE: OUTCOME SUMMARY: Pt arrived this evening. VSS. Heparin gtt continued. Second IV placed and first IV redressed and both flush well and are CDI. Gave morphine per order for back pain. Pt stating no chest pain. Providedwith turkey sandwich and pt ate entire meal. Pt in SR/SB overnight. K 3.7 and replaced with 40 mEq per provider order. Will continue to assess and monitor. PLAN MOVING FORWARD: Pt NPO at midnight for possible procedure. INDIVIDUALIZED FALL PREVENTION INTERVENTIONS: Patient-specific fall risk factors per assessment: [current deficits]: ECG leads, IV sites Assistance [level of assistance required for transfers and ambulation]: Standby assist Supervision [direct monitoring required during toileting and ADLs]: Intermittent, call jaimes within reach, ringing appropriately Surveillance [continuous indirect monitoring]: Telemetry, pain, and purposeful rounding CPG GOAL OUTCOME EVALUATION: Ongoing Goal: Individualization & Mutuality Outcome: Ongoing (Interventions Implemented as Appropriate) 07/04/162252 Mutuality/Individual Preferences What Anxieties, Fears or Concerns Do You Have About Your Health or Care? none What Questions Do You Have About Your Health or Care? none What Information Would Help Us Give You More Personalized Care? none Goal: Fall Prevention-Safe Patient Handling Outcome: Ongoing (Interventions Implemented as Appropriate) 07/04/16191907/04/16200307/04/162252 Musculoskeletal Interventions Muscle Strengthening -- -- mobility in bed promoted Daily Care Interventions Self-Care Promotion -- -- independence encouraged;BADL personal objects within reach [place]o Fall Risk History of Falling 0 -- -- Secondary Diagnosis 15 -- -- Ambulatory Aids 0 -- -- Intravenous Therapy/Heparin/Saline Lock 20 -- -- Gait/Transferring 0 -- -- Mental Status 0 -- -- Score 35 -- -- Activity and Safety Assistive Device -- None -- OTHER [place] Fall Risk Med -- -- Restraint Interventions Safety Promotion/Fall Prevention activity supervised;safety round/check completed;nonskid shoes/slippers when out of bed;fall prevention program maintained -- -- Positioning Body Position supine, head elevated -- -- Goal: Infection Control Outcome: Ongoing (Interventions Implemented as Appropriate) 07/04/161919 Safety Interventions Isolation Precautions standard precautions maintained Infection Prevention environmental surveillance performed Coping Strategies Supportive Measures active listening utilized;verbalization of feelings encouraged Problem: Pain, Acute (Adult) Intervention: Monitor/Manage Analgesia 07/04/162252 Manage Acute Burn Pain Bowel Intervention adequate fluid intake promoted Pain Management Interventions pain management plan reviewed with patient/caregiver Safety Interventions Medication Review/Management medications reviewed Intervention: Mutually Develop/Implement Acute Pain Management Plan 07/04/162252 Manage Acute Burn Pain Pain Management Interventions pain management plan reviewed with patient/caregiver Cognitive Interventions Sensory Stimulation Regulation quiet environment promoted;care clustered Intervention: Support/Optimize Psychosocial Response to Acute Pain 07/04/16 1920 Coping Strategies Supportive Measures active listening utilized;verbalization of feelings encouraged Family/Support System Care caregiver stress acknowledged;presence promoted Trust Relationship/Rapport choices provided;care explained;thoughts/feelings acknowledged;questionsencouraged;questions answered Goal: Acceptable Pain Control/Comfort Level Patient will demonstrate the desired outcomes by discharge/transition of care. Outcome: Ongoing (Interventions Implemented as Appropriate) 07/04/16 2253 Pain, Acute (Adult) Acceptable Pain Control/Comfort Level achieves outcome documented in this encounter Plan of Treatment Upcoming Encounters Date Type Department Care Team (Late st Contact Info) Description 07/06/2024 1:30 PM EST Office Visit Cardiology at [address] [phone] Delta Reyes MD [facility] [place] [address] Scheduled Orders Name Type Priority Associated Diagnoses Orde r Schedule EKG 12 Lead ECG Routine Ischemic chest pain One Time for 1 Occurrences starting 07/05/2016 until 07/05/2016 documented as of this encounter Procedures Procedure Name Priority Date/Time Associated Diagnosis Comments HEALTH ECONOMIST SCAN 07/07/2016 12:00 AM EST HEALTH ECONOMIST SCAN 07/07/2016 12:00 AM EST ECG SCAN 07/07/2016 12:00 AM EST POCT GLUCOSE Routine 07/06/2016 12:45 PM EST POCT GLUCOSE Routine 07/06/2016 7:43 AM EST HEMOGRAM Routine 07/06/2016 5:15 AM EST DIFFERENTIAL, AUTOMATED Routine 07/06/20 5:15 AM EST CBC (WITH DIFF) Routine 07/06/2016 5:15 AM EST POCT GLUCOSE Routine 07/05/2016 7:30 PM EST URINE HOLD Routine 07/05/2016 5:10 PM EST URINALYSIS WITH REFLEX CULTURE Routine 07/05/2016 5:10 PM EST URINE CULTURE Routine 07/05/2016 5:10 PM EST POCT GLUCOSE Routine 07/05/2016 4:27 PM EST ECHO COMPLETE Routine 07/05/2016 3:30 PM EST Ischemic chest pain POCT GLUCOSE Routine 07/05/2016 11:55 AM EST CARDIAC CATHETERIZATION Routine 07/05/20 16 10:53 AM EST POCT GLUCOSE Routine 07/05/2016 8:52 AM EST EKG 12-LEAD STAT 07/05/2016 7:21 AM EST Ischemic chest pain APTT Routine 07/05/2016 7:09 AM EST HEMOGRAM Routine 07/05/2016 1:58 AM EST DIFFERENTIAL, AUTOMATED Routine 07/05/20 16 1:58 AM EST CARDIAC ENZYMES ([facility]) Routine 07/05/2016 1:58 AM EST APTT STAT 07/05/2016 1:58 AM EST CBC (WITH DIFF) Routine 07/05/2016 1:58 AM EST MAGNESIUM Routine 07/05/2016 1:58 AM EST BASIC METABOLIC PANEL Routine 07/05/2016 1:58 AM EST XR CHEST PA AND LATERAL Routine 07/04/20 16 8:17 PM EST EKG 12-LEAD STAT 07/04/2016 7:47 PM EST Ischemic chest pain POCT GLUCOSE Routine 07/04/2016 7:37 PM EST HEMOGRAM STAT 07/04/2016 6:51 PM EST DIFFERENTIAL, AUTOMATED STAT 07/04/20 16 6:51 PM EST CARDIAC ENZYMES ([facility]/CGP) STAT 07/04/2016 6:51 PM EST APTT STAT 07/04/2016 6:51 PM EST PROTHROMBIN TIME STAT 07/04/2016 6:51 PM EST CBC (WITH DIFF) STAT 07/04/2016 6:51 PM EST TSH STAT 07/04/2016 6:51 PM EST PRO-BRAIN NATRIURETIC PEPTIDE STAT 07/04/2016 6:51 PM EST MAGNESIUM STAT 07/04/2016 6:51 PM EST LIPID PANEL (REFLEX DIRECT LDL) STAT 07/04/2016 6:51 PM EST COMPREHENSIVE METABOLIC PANEL STAT 07/04/2016 6:51 PM EST documented in this encounter Results * SCAN DOC: HEALTH ECONOMIST (07/07/2016 12:00 AM EST) Anatomical Region Laterality Modality Other Scanning Provider MEDIA MGR SCAN EXT O RDR/RSLT * SCAN DOC: HEALTH ECONOMIST (07/07/2016 12:00 AM EST) Anatomical Region Laterality Modality Other Scanning Provider MEDIA MGR SCAN EXT O RDR/RSLT * SCAN DOC: ECG (07/07/2016 12:00 AM EST) Scanning Provider MEDIA MGR SCAN EXT O RDR/RSLT * POCT Glucose (07/06/2016 12:45 PM EST) [facility] Signature Glucose, POC 139 65 - 199 mg/dL [facility] Comment: Supplemental ranges: <140 mg/dL before meals <180 mg/dL all other times of the day Blood specimen (specimen) 07/06/2016 12:45 PM EST 07/06/2016 12:45 PM EST Daniel Alberts MD POINT OF CARE TEST O RDERABLES Performing Organization Address [facility] Co de Phone Number [facility] [place] [address] * POCT Glucose (07/06/2016 7:43 AM EST) Pathologist [facility] Glucose, POC 107 65 - 199 mg/dL [facility] Comment: Supplemental ranges: <140 mg/dL before meals <180 mg/dL all other times of the day Blood specimen (specimen) 07/06/2016 7:43 AM EST 07/06/2016 7:43 AM EST Daniel Alberts MD POINT OF CARE TEST O RDERABLES Performing Organization Address [facility] Co de Phone Number [facility] [place] [address] * Differential, Automated (07/06/2016 5:15 AM EST) [facility] Neutrophil % 64.8 % [facility] Neutrophil Absolute 4.04 1.70 - 6.10 x10(3)/[facility] Lymph % 22.5 % [facility] Lymphocytes Abs 1.4 0.9 - 3.2 x10(3)/[facility] Monocyte % 9.0 % [facility] Monocyte Abs 0.6 0.3 - 0.9 x10(3)/[facility] Eos % 2.9 % [facility] Eosinophils Abs 0.2 0.0 - 0.4 x10(3)/[facility] Basophil % 0.5 % [facility] Baso Absolute 0.0 0.0 - 0.1 x10(3)/[facility] Immature Gran % 0.30 % [facility] Comment: Immature granulocytes(IG's)percentage and absolute count will include metamyelocytes, myelocytes, and promyelocytes. Blood smears from CBCs yielding IG's will be scanned manually for concordance. If this scan disagrees with the automated IG or if promyelocytes are noted, a manual differential will be performed. Immature Gran Absolute 0.02 0.00 - 0.04 x10(3)/mcL [facility] Blood specimen (specimen) 07/06/2016 5:15 AM EST 07/06/2016 5:46 AM EST Narrative Resulting Agency Comment Spec In Lab Martha Rubalcava MD HEMATOLOGY ORDER JOSÉ [facility] [place] [address] * (ABNORMAL) Hemogram (07/06/2016 5:15 AM EST) White Blood Cell 6.2 4.0 - 9.5 x10(3)/mc L [facility] Red Blood Cell 3.65(L) 4.00 - 5.21 x10(6)/mc L [facility] Hemoglobin 11.3(L) 11.7 - 15.5 gm/dL [facility] Hematocrit 32.5(L) 35.7 - 45.8 % [facility] Mean Cell Volume 89.0 82.6 - 94.4 fL [facility] Mean Cell Hemoglobin 31.0 27.1 - 32.0 pg [facility] Mean Cell Hemoglobin Concentration 34.8 31.7 - 35.0 gm/dL [facility] Platelet 107(L) 145 - 357 x10(3)/mc L [facility] RDW Standard Deviation 41.1 37.0 - 46.0 fL [facility] RDW coefficient of variation 12.7 11.5 - 14.1 % [facility] Mean Platelet Volume 10.3 7.6 - 12.9 fL [facility] NRBC% auto 0.0 % [facility] NRBC Absolute 0.000 0.000 - 0.000 x10(3)/mc L [facility] Blood specimen (specimen) 07/06/2016 5:15 AM EST 07/06/2016 5:46 AM EST Narrative Resulting Agency Comment Spec In Lab Martha Rubalcava MD HEMATOLOGY ORDER JOSÉ Performing Organization Address City/[facility]/ZIP Co de Phone Number [facility] [place] [address] * POCT Glucose (07/05/2016 7:30 PM EST) Glucose, POC 181 65 - 199 mg/dL [facility] Comment: Supplemental ranges: <140 mg/dL before meals <180 mg/dL all other times of the day Blood specimen (specimen) 07/05/2016 7:30 PM EST 07/05/2016 7:30 PM EST Daniel Alberts MD POINT OF CARE TEST O RDERABLES Performing Organization Address [facility] Co de Phone Number [facility] [place] [address] * (ABNORMAL) Urine culture (07/05/2016 5:10 PM EST) Urine Culture Greater than 100,000 cfu/ml Escherichia coli(A) [facility] Organism Escherichia coli(A) [facility] Urine specimen (specimen) 07/05/2016 5:10 PM EST 07/05/2016 7:20 PM EST Narrative Resulting Agency Comment Spec In Lab Organism Antibiotic Method Susceptibility Escherichia coli Amikacin MICROSCAN METHOD Sensitive Escherichia coli Ampicillin MICROSCAN METHOD Sensitive Escherichia coli Ampicillin + Sulbactam MICROSCAN METH OD Sensitive Escherichia coli Aztreonam MICROSCAN METHOD Sensitive Escherichia coli Cefazolin MICROSCAN METHOD Sensitive Escherichia coli Cefepime MICROSCAN METHOD Sensitive Escherichia coli Ceftazidime MICROSCAN METHOD Sensitive Escherichia coli Ceftriaxone MICROSCAN METHOD Sensitive Escherichia coli Cefuroxime MICROSCAN METHOD Sensitive Escherichia coli Ciprofloxacin MICROSCAN METHOD Sensitive Escherichia coli Gentamicin MICROSCAN METHOD Sensitive Escherichia coli Levofloxacin MICROSCAN METHOD Sensitive Escherichia coli Meropenem MICROSCAN METHOD Sensitive Escherichia coli Nitrofurantoin MICROSCAN METHOD Sensitive Escherichia coli Piperacillin/Tazobactam MICROSCAN MET HOD Sensitive Escherichia coli Tetracycline MICROSCAN METHOD Sensitive Escherichia coli Tobramycin MICROSCAN METHOD Sensitive Escherichia coli Trimethoprim/Sulfa MICROSCAN METHOD Sensitive Daniel Alberts MD MICROBIOLOGY - GENER AL ORDERABLES Performing Organization Address [facility] Co de Phone Number [facility] [place] [address] * Urine Hold (07/05/2016 5:10 PM EST) Hold, Urine Sample in lab. [facility] Urine specimen (specimen) Urine / Unknown 07/05/2016 5:10 PM EST 07/05/2016 5:20 PM EST Daniel Alberts MD URINE ORDERABLES Performing Organization Address [facility] de Phone Number [facility] [place] [address] * (ABNORMAL) Urinalysis with reflex Culture (07/05/2016 5:10 PM EST) Glucose, Urine Dipstick Negative Negative mg/dL [facility] Protein, Urine Dipstick Negative Negative mg/dL [facility] Bilirubin, Urine Dipstick Negative Negative mg/dL [facility] Comment: Clinical correlation required for positive Urine Bilirubin results as false positive may occur with some drugs and drug related products. If a false positive is suspected a serum total bilirubin should be considered if clinically indicated. Urobilinogen, Urine Dipstick Normal Normal mg/dL [facility] pH, Urn (dipstick) 7.0 5.0 - 8.0 [facility] Blood, Urine Dipstick Negative Negative mg/dL [facility] Ketone, Urine Dipstick Negative Negative mg/dL [facility] Nitrite, Urine Dipstick Negative Negative [facility] Leukocytes, Urine Dipstick Large(A) Negative [facility] LABORATORY Appearance, Urine Dipstick Clear Clear [facility] Specific Ragland Urine Automated 1.023 1.002 - 1.030 [facility] Color, Urine Dipstick Yellow Yellow [facility] RBC, Urine 3 0 - 4 /HPF [facility] WBC, Urine 24(H) 0 - 5 /HPF [facility] Bacteria, Urine Few(A) None /HPF [facility] Squamous Epithelial Cells, Urine 1 <=4 /HPF [facility] Renal Epithelial Cells, Urine <1(H) <=0 /HPF [facility] Reflex to Culture Yes [facility] Urine specimen (specimen) 07/05/2016 5:10 PM EST 07/05/2016 5:20 PM EST Narrative Resulting Agency Comment Spec In Lab Daniel Alberts MD URINE ORDERABLES Performing Organization Address City/[facility]/ZIP Co de Phone Number [facility] [place] [address] * POCT Glucose (07/05/2016 4:27 PM EST) Pathologist [facility] Glucose, POC 128 65 - 199 mg/dL [facility] Comment: Supplemental ranges: <140 mg/dL before meals <180 mg/dL all other times of the day Blood specimen (specimen) 07/05/2016 4:27 PM EST 07/05/2016 4:27 PM EST Daniel Alberts MD POINT OF CARE TEST O RDERABLES Performing Organization Address City/[facility]/ZIP Co de Phone Number [facility] [place] [address] * ECHO COMPLETE (07/05/2016 3:30 PM EST) EF 65 HEARTLAB SYSTEM Anatomical Region Laterality Modality Other 07/05/2016 Narrative 07/05/2016 5:13 PM EST Procedure: ?Transthoracic Echocardiogram Patient: ?FLOYD Smith ? (Age): 1945(70y) Med Rec#: ? [id number] ?Sex: ?F ? Site Loc: ? [facility] ?Ht / Wt: ??155(cm)/63.01(k Pt. Loc: ?Adult Floor ? BSA: ?1.62 Study Date: ?? 07/05/2016 ?Pt. Type: Inpatient Tape: ? Referring: Khadar Yates Referring: AUGUSTUS OLIVAS P Reading: Daniel Alberts ([id number]) Insulator Tester: Azalea Kincaid Diagnosis: *ICD-10-PCS Angina pectoris, unspecified (I20.9) CPT Codes: *Echo Full (53455) *Spectral Doppler (67623) *Color Doppler (50000) BP: ? 92/47 SUMMARY: 1. The left ventricular chamber size is [...] 5. There is mild (1+/4+) mitral regurgitation present. Findings ? : Left Ventricle: ? The left ventricular chamber size is normal. ?Borderline concentric left ventricular hypertrophy is observed. There is concentric remodeling ?Basal septal hypertrophy is observed. ?There is no evidence of LVOT obstruction. ?There is normal global left ventricular systolic function. ??Ejection fraction is estimated to be 65%. ?There are no left ventricular segmental wall motion abnormalities. ?The left ventricular diastolic filling pattern is consistent with impaired LV relaxation. ?Doppler assessment is consistent with normal left sided filling pressure. Left Atrium: ? The left atrium is normal in size.(15 ml/m2) ?No atrial septal defect is visualized. ?The inter-atrial septum appears lipomatous. Right Ventricle: ? The right ventricle is probably normal in size. ?Right ventricular global systolic function is normal. ?Pulmonary artery hypertension could not be assessed due to inadequate tricuspid regurgitation jet. ?The estimated right atrial pressure is 3 mmHg. Right Atrium: ? The right atrium is normal in size. Aortic Valve: ? The aortic valve structure is normal. ?There is no evidence of aortic valve stenosis. ?Mild (1+/4+) aortic valve regurgitation is present. Mitral Valve: ? The mitral valve leaflets are mildly thickened. ?There is no evidence of mitral stenosis. ?There is mild (1+/4+) mitral regurgitation present. [...] visualized. Venous: ? The inferior vena cava appears normal in size. ?There is a greater than 50% respiratory change in the inferior vena cava dimension. Misc: ? Two-dimensional echo, spectral Doppler and color Doppler performed. Chambers 2D ?Value ?Units (Range) ? IVSd (2D) ? 1.4 ?cm ? LVPWd (2D) ?1 ?cm ? IVS:LVPW ratio (2D) 1.3 ?ratio ? LVIDd (2D) ?3.5 ?cm ? LVIDs (2D) ?1.5 ?cm ? LVIDd (2D) index ?2.2 ?cm/m2 ? LVIDs (2D) index ?0.9 ?cm/m2 ? LV FS (2D) ?58 ? % ? EF Teichholz (2D) ?? 89 ? % ? Ao root diameter (2D3 ?cm (2.1 - 3.6) ? Ascending Ao ?3 ?cm (2 - 3.5) ? Volumes/Mass ?Value ?Units (Range) ? LA Area 4 CH ?12 ? cm2 (<21) ? RA AREA 4CH ? 15 ? cm2 ? LA ESV SP 4CH (MOD) 25.5 ? ml ? LA ESV SP 2CH (MOD) 19.2 ? ml ? LA ESV BP (MOD) ? 23.5 ? ml ? LA ESV BP (MOD) inde14.5 ? ml/m2 ? LV mass (2D) ?135.4 ?g ? LV mass (2D) index ??83.6 ? g/m2 ? Diastolic/Systolic Function ?Value ?Units (Range) ? MV E-wave Vmax ?0.9 ?m/sec ? MV deceleration [id number] ?msec ? MV A-wave Vmax ?1 ?m/sec ? MV E:A ratio ?0.9 ?ratio ? LV septal e' Vmax ?? 0 ?m/sec ? LV lateral e' Vmax ??0.1 ?m/sec ? LV average e' Vmax ??0.1 ?m/sec ? LV E:e' septal ratio20.9 ? ratio ? LV E:e' lateral rati11 ? ratio ? LV average E:e' rati14.6 ? ratio ? Tricuspid Valve ?Value ?Units (Range) ? RAP ? 3 ?mmHg ? Measurement Trending Name ? 07/05/2016 ? LVIDd (2D) ? 3.54 LA ESV BP (MOD) ?23.5 LVIDs (2D) ? 1.49 Wall Motion: Segment Name ?Rest ? Base-Anteroseptal ?? Normal ? Base-Anterior ? Normal ? Base-Anterolateral ??Normal ? Base-Posterolateral Normal ? Base-Inferior ? Normal ? Base-Inferoseptal ?? Normal ? Mid-Anteroseptal ?Normal ? Mid-Anterior ?Normal ? Mid-Anterolateral ?? Normal ? Mid-Posterolateral ??Normal ? Mid-Inferior ?Normal ? Mid-Inferoseptal ?Normal ? Morley-Septal ? Normal ? Morley-Anterior ? Normal ? Morley-Lateral ?Normal ? Morley-Inferior ? Normal ? Morley-Tip ?Normal ? This report has been electronically signed by: Daniel Alberts MD ? 07/05/2016 17:12:39 Images reviewed and interpretation verified [facility] Cardiac Ultrasound Laboratory Procedure Note Daniel Alberts MD - 07/05/2016 Procedure: Transthoracic Echocardiogram Patient: FLOYD Smith DOB(Age): 1945(70y) Med Rec#: [id number] Sex: F Site Loc: [facility] Ht / Wt: 155(cm)/63.01(k Pt. Loc: Adult Floor BSA: 1.62 Study Date: 07/05/2016 Pt. Type: Inpatient Tape: Referring: Khadar Yates Referring: AUGUSTUS OLIVAS P Reading: Daniel Alberts ([id number]) Insulator Tester: Azalea Kincaid Diagnosis: *ICD-10-PCS Angina pectoris, unspecified (I20.9) CPT Codes: *Echo Full (78738) *Spectral Doppler (40758) *Color Doppler (86280) BP: 92/47 SUMMARY: 1. The left ventricular chamber size is [...] 5. There is mild (1+/4+) mitral regurgitation present. Findings : Left Ventricle: The left ventricular chamber size is normal. Borderline concentric left ventricular hypertrophy is observed. There is concentric remodeling Basal septal hypertrophy is observed. There is no evidence of LVOT obstruction. There is normal global left ventricular systolic function. Ejection fraction is estimated to be 65%. There are no left ventricular segmental wall motion abnormalities. The left ventricular diastolic filling pattern is consistent with impaired LV relaxation. Doppler assessment is consistent with normal left sided filling pressure. Left Atrium: The left atrium is normal in size.(15 ml/m2) No atrial septal defect is visualized. The inter-atrial septum appears lipomatous. Right Ventricle: The right ventricle is probably normal in size. Right ventricular global systolic function is normal. Pulmonary artery hypertension could not be assessed due to inadequate tricuspid regurgitation jet. The estimated right atrial pressure is 3 mmHg. Right Atrium: The right atrium is normal in size. Aortic Valve: The aortic valve structure is normal. There is no evidence of aortic valve stenosis. Mild (1+/4+) aortic valve regurgitation is present. Mitral Valve: The mitral valve leaflets are mildly thickened. There is no evidence of mitral stenosis. There is mild (1+/4+) mitral regurgitation present. [...] well visualized. Venous: The inferior vena cava appears normal in size. There is a greater than 50% respiratory change in the inferior vena cava dimension. Misc: Two-dimensional echo, spectral Doppler and color Doppler performed. Chambers 2D Value Units (Range) IVSd (2D) 1.4 cm LVPWd (2D) 1 cm IVS:LVPW ratio (2D) 1.3 ratio LVIDd (2D) 3.5 cm LVIDs (2D) 1.5 cm LVIDd (2D) index 2.2 cm/m2 LVIDs (2D) index 0.9 cm/m2 LV FS (2D) 58 % EF Teichholz (2D) 89 % Ao root diameter (2D3 cm (2.1 - 3.6) Ascending Ao 3 cm (2 - 3.5) Volumes/Mass Value Units (Range) LA Area 4 CH 12 cm2 (<21) RA AREA 4CH 15 cm2 LA ESV SP 4CH (MOD) 25.5 ml LA ESV SP 2CH (MOD) 19.2 ml LA ESV BP (MOD) 23.5 ml LA ESV BP (MOD) inde14.5 ml/m2 LV mass (2D) 135.4 g LV mass (2D) index 83.6 g/m2 Diastolic/Systolic Function Value Units (Range) MV E-wave Vmax 0.9 m/sec MV deceleration [id number] msec MV A-wave Vmax 1 m/sec MV E:A ratio 0.9 ratio LV septal e' Vmax 0 m/sec LV lateral e' Vmax 0.1 m/sec LV average e' Vmax 0.1 m/sec LV E:e' septal ratio20.9 ratio LV E:e' lateral rati11 ratio LV average E:e' rati14.6 ratio Tricuspid Valve Value Units (Range) RAP 3 mmHg Measurement Trending Name 07/05/2016 LVIDd (2D) 3.54 LA ESV BP (MOD) 23.5 LVIDs (2D) 1.49 Wall Motion: Segment Name Rest Base-Anteroseptal Normal Base-Anterior Normal Base-Anterolateral Normal Base-Posterolateral Normal Base-Inferior Normal Base-Inferoseptal Normal Mid-Anteroseptal Normal Mid-Anterior Normal Mid-Anterolateral Normal Mid-Posterolateral Normal Mid-Inferior Normal Mid-Inferoseptal Normal Morley-Septal Normal Morley-Anterior Normal Morley-Lateral Normal Morley-Inferior Normal Morley-Tip Normal This report has been electronically signed by: Daniel Alberts MD 07/05/2016 17:12:39 Images reviewed and interpretation verified [facility] Cardiac Ultrasound Laboratory Martha Rubalcava MD ECHO ORDERABLES * POCT Glucose (07/05/2016 11:55 AM EST) Glucose, POC 109 65 - 199 mg/dL [facility] Comment: Supplemental ranges: <140 mg/dL before meals <180 mg/dL all other times of the day Blood specimen (specimen) 07/05/2016 11:55 AM EST 07/05/2016 11:55 AM EST Daniel Alberts MD POINT OF CARE TEST O RDERABLES [facility] [place] [address] * CARDIAC CATHETERIZATION (07/05/2016 10:53 AM EST) Anatomical Region Laterality Modality Other Narrative 07/05/2016 11:03 AM EST ?[facility] ? Cardiac Catheterization/Intervention Report ? Patient Name: Lou Mo. ? Procedure Date: 07/05/2016 ? A #: [id number] ? Primary Physician: Karena, Jamal T ? Case #: [id number] ? File Name: [id number] ? Catheterization Order Number: [id number] ? [facility] ? Final Report [place], [place] ? Patient Name: ? Lou Mo ? ID#: ?[id number] ? : ?1945 ? Procedure Date: ? July 05, 2016 ? Case #: ? [id number] ? Room: ? 5 ? Case Physician: ? Jamal Vital M.D. ?Start: ?09:52 ?Fellow: ? Will Bob M.D. ?Admission: ??07/05/2016 ? Referring Physician: ??Tang Ling M.D. ? Procedures: ?* Coronary Angiography ?* Left Heart Catheterization ?* Coronary Flow [place] Measurement (FFR) ?* Coronary Instantaneous Wave-Free Ratio (iFR) ?* Access Site Angiography ? History ?Lou Mo is a 70 year old woman. She has hypertension and a ?family history of coronary artery disease. The patient has ?hypercholesterolemia managed with lipid therapy. She has diabetes managed ?with oral medication. The patient has atypical symptoms for coronary ?artery disease, stable angina, a history of chest pain and a prior ?history of coronary artery disease. She had a recent coronary ?intervention procedure. The patient has a history of dyspnea with NYHA ?functional class II. She has aortic regurgitation. The patient also has a ?history of a heart murmur. Prior to the initiation of this procedure, the ?patient was designated as ASA Class III. ? Patient Status at Catheterization: ?The patient presented with: stable angina (w/i 42 days). [place] ?[employer]iovascular Society angina class was IV. This patient was on beta ?blockers and nitrates prior to the procedure. No stress or imaging ?studies were performed prior to this procedure ? Technique: ?A 6Fr sheath was inserted in the right femoral artery utilizing the ?Seldinger technique. The left coronary artery was injected utilizing a ?6Fr JL 3.5 catheter. A 6Fr JR 4 catheter was used to inject the right ?coronary artery. Left ventricle was performed with a 6Fr Angled pigtail ?catheter. 3,500 units of heparin were administered. A total of 100cc of ?Omnipaque were opened, 80cc of Omnipaque were administered and 20cc of ?Omnipaque were wasted. Radiation: Fluoro time was 6.6 minutes, dose area ?product was 23,351 mGYcm2 and air kerma was 529 mGY. ?The patient received the following medications prior to and during the ?procedure: Aspirin (any), Clopidogrel and Unfractionated Heparin (any). ? Hemodynamics: ?Left Heart Pressures ? Resting: ? Syst Diast ? EDP ?a ?v ? m ?Ao 123 ?? 54 ?83 ?LV 125 ? 16 ? Coronary Angiography: ?Dominance: Right ?Left Main ? There was mild diffuse disease of the entire vessel segment of the ? left main artery. ?Left Anterior Descending ? There was mild diffuse disease of the entire vessel segment of the ? left anterior descending artery (LAD). ??The previously placed stent ? is patent. The proximal segment of the LAD had a single discrete 40% ? stenosis. ? There was a 10% stenosis of the ostial segment of the first diagonal ? branch (Diagonal 1) of the LAD. ??The previously placed stent is ? patent. ?Left Circumflex ? There was mild diffuse disease of the entire vessel segment of the ? left circumflex artery (LCX). ?Right Coronary Artery ? There was mild diffuse disease of the entire vessel segment of the ? right coronary artery (RCA). ? Intravascular Imaging/Physiology: ?Instantaneous wave-free ratio (iFR) was determined across the 40% ?stenosis in the proximal LAD using a 6 Fr EBU 3.5 guiding catheter and a ?Verrata wire. ??Wire delivery was successful. ??The IFR across the 40% ?proximal LAD lesion was 0.98. ??This lesion was not hemodynamically ?significant. ??Lesions are generally considered to be hemodynamically ?significant if the iFR is less than or equal to 0.85, and are considered ?to be indeterminate in the range from 0.86 to 0.93. ?Instantaneous wave-free ratio (iFR) was determined across the 10% ?stenosis in the ostial D1 using a 6 Fr EBU 3.5 guiding catheter and a ?Verrata wire. ??Wire delivery was successful. ??The IFR across the 10% ?ostial D1 lesion was 0.94. ??This lesion was not hemodynamically ?significant. ??Lesions are generally considered to be hemodynamically ?significant if the iFR is less than or equal to 0.85, and are considered ?to be indeterminate in the range from 0.86 to 0.93. ?Fractional flow reserve was performed to assess the 40% stenosis in the ?proximal LAD using a 6 Fr EBU 3.5 guiding catheter and a Verrata wire. ?Adenosine 140 mcg/kg/min intravenous infusion was administered. ??Wire ?delivery was successful. ??The FFR across the 40% proximal LAD lesion was ?0.92. ??This lesion was not hemodynamically significant. ??Lesions are ?considered to be hemodynamically significant if the FFR is less than ?0.80. ? Vascular Access: ?Vascular Access Angiogram: ? A selective angiogram at the right femoral artery revealed no ? significant obstructive disease. A closure device is contraindicated ? due to the sheath insertion site located at the bifurcation of this ? vessel. ?Vascular Access Management: ? Manual Compression of the right femoral artery access site was ? performed. ? Conclusions: ?* Nonobstructive coronary artery disease ?* No interval change in anatomy. ? Complications/Events: ?The patient had no complications during these procedures. ? Recommendations: ?Based upon the results of this procedure, it was recommended that medical ?therapy be considered. ? Comments: ?No interval change in LAD/Diag bifurcation stenting. ??The upstream LAD ?has moderate disease which was angiographically 40-50% with a negative ?IFR and negative FFR. ??In light of physiologic assessment with negative ?troponin and no EKG changes, no intervention was performed. ?The attending physician was present for the entire procedure. ?Dr. Jamal Vital M.D. performed the coronary angiography, left heart ?catheterization, FFR # coronary, IFR-coronary and access site angiography. ? Jamal Shirleyries, M.D. ? Electronically Signed by: Jamal Vital, M.D. ? Report Finalized: 07/05/2016 ??10:57 ? Report Last Ammended: 07/07/2016 ??07:22 ? Procedure Note Jamal Vital MD - 07/07/2016 [facility] Cardiac Catheterization/Intervention Report Patient Name: Lou Mo Procedure Date: 07/05/2016 A #: [id number] Primary Physician: Jamal Vital Case #: [id number] File Name: [id number] Catheterization Order Number: [id number] [facility] FinalReport [place], [place] Patient Name: Lou Mo ID#:[id number] :1945 Procedure Date: July 05, 2016 Case #: [id number] Room: 5 Case Physician: Jamal Vital M.D. Start: 09:52 Fellow: Will Bob M.D. Admission:07/05/2016 Referring Physician: Tang Ling M.D. Procedures: * Coronary Angiography * Left Heart Catheterization * Coronary Flow [place] Measurement (FFR) * Coronary Instantaneous Wave-Free Ratio (iFR) * Access Site Angiography History Lou Mo is a 70 year old woman. She has hypertension soraya family history of coronary artery disease. The patient has hypercholesterolemia managed with lipid therapy. She has diabetesmanaged with oral medication. The patient has atypical symptoms for coronary artery disease, stable angina, a history of chest pain and a prior history of coronary artery disease. She had a recent coronary intervention procedure. The patient has a history of dyspnea withNYHA functional class II. She has aortic regurgitation. The patient alsohas a history of a heart murmur. Prior to the initiation of thisprocedure, the patient was designated as ASA Class III. Patient Status at Catheterization: The patient presented with: stable angina (w/i 42 days). [place] [employer] Society angina class was IV. This patient was on beta blockers and nitrates prior to the procedure. No stress or imaging studies were performed prior to this procedure Technique: A 6Fr sheath was inserted in the right femoral artery utilizing the Seldinger technique. The left coronary artery was injected utilizinga 6Fr JL 3.5 catheter. A 6Fr JR 4 catheter was used to inject theright coronary artery. Left ventricle was performed with a 6Fr Angledpigtail catheter. 3,500 units of heparin were administered. A total of 100ccof Omnipaque were opened, 80cc of Omnipaque were administered and 20ccof Omnipaque were wasted. Radiation: Fluoro time was 6.6 minutes, dosearea product was 23,351 mGYcm2 and air kerma was 529 mGY. The patient received the following medications prior to and duringthe procedure: Aspirin (any), Clopidogrel and Unfractionated Heparin(any). Hemodynamics: Left Heart Pressures Resting: Syst Diast EDP a v m Ao 123 54 83 LV 125 16 Coronary Angiography: Dominance: Right Left Main There was mild diffuse disease of the entire vessel segment ofthe left main artery. Left Anterior Descending There was mild diffuse disease of the entire vessel segment ofthe left anterior descending artery (LAD). The previously placedstent is patent. The proximal segment of the LAD had a singlediscrete 40% stenosis. There was a 10% stenosis of the ostial segment of the firstdiagonal branch (Diagonal 1) of the LAD. The previously placed stent is patent. Left Circumflex There was mild diffuse disease of the entire vessel segment ofthe left circumflex artery (LCX). Right Coronary Artery There was mild diffuse disease of the entire vessel segment ofthe right coronary artery (RCA). Intravascular Imaging/Physiology: Instantaneous wave-free ratio (iFR) was determined across the 40% stenosis in the proximal LAD using a 6 Fr EBU 3.5 guiding catheterand a Verrata wire. Wire delivery was successful. The IFR across the 40% proximal LAD lesion was 0.98. This lesion was not hemodynamically significant. Lesions are generally considered to be hemodynamically significant if the iFR is less than or equal to 0.85, and areconsidered to be indeterminate in the range from 0.86 to 0.93. Instantaneous wave-free ratio (iFR) was determined across the 10% stenosis in the ostial D1 using a 6 Fr EBU 3.5 guiding catheter osraya Verrata wire. Wire delivery was successful. The IFR across the 10% ostial D1 lesion was 0.94. This lesion was not hemodynamically significant. Lesions are generally considered to be hemodynamically significant if the iFR is less than or equal to 0.85, and areconsidered to be indeterminate in the range from 0.86 to 0.93. Fractional flow reserve was performed to assess the 40% stenosis inthe proximal LAD using a 6 Fr EBU 3.5 guiding catheter and a Verratawire. Adenosine 140 mcg/kg/min intravenous infusion was administered.Wire delivery was successful. The FFR across the 40% proximal LAD lesionwas 0.92. This lesion was not hemodynamically significant. Lesions are considered to be hemodynamically significant if the FFR is less than 0.80. Vascular Access: Vascular Access Angiogram: A selective angiogram at the right femoral artery revealed no significant obstructive disease. A closure device iscontraindicated due to the sheath insertion site located at the bifurcation ofthis vessel. Vascular Access Management: Manual Compression of the right femoral artery access site was performed. Conclusions: * Nonobstructive coronary artery disease * No interval change in anatomy. Complications/Events: The patient had no complications during these procedures. Recommendations: Based upon the results of this procedure, it was recommended thatmedical therapy be considered. Comments: No interval change in LAD/Diag bifurcation stenting. The upstreamLAD has moderate disease which was angiographically 40-50% with anegative IFR and negative FFR. In light of physiologic assessment withnegative troponin and no EKG changes, no intervention was performed. The attending physician was present for the entire procedure. Dr. Jamal Vital M.D. performed the coronary angiography, leftheart catheterization, FFR # coronary, IFR-coronary and access siteangiography. Jamal Vital M.D. Electronically Signed by: Jamal Vital M.D. Report Finalized: 07/05/2016 10:57 Report Last Ammended: 07/07/2016 07:22 Daniel Alberts MD CARDIAC CATH ORDERAB LES * POCT Glucose (07/05/2016 8:52 AM EST) Pathologist [facility] Glucose, POC 109 65 - 199 mg/dL [facility] Comment: Supplemental ranges: <140 mg/dL before meals <180 mg/dL all other times of the day Blood specimen (specimen) 07/05/2016 8:52 AM EST 07/05/2016 8:52 AM EST Daniel Alberts MD POINT OF CARE TEST O RDERABLES Performing Organization Address [facility] Co de Phone Number [facility] [place] [address] * EKG 12 Lead (07/05/2016 7:21 AM EST) Pathologist [facility] Ventricular rate 72 BPM MUSE SYSTEM Atrial Rate 72 BPM MUSE SYSTEM P-R Interval 190 ms MUSE SYSTEM QRS Duration 82 ms MUSE SYSTEM Q-T Interval 390 ms MUSE SYSTEM QTC Calculated (Bezet) 427 ms MUSE SYSTEM Calculated P [place] 50 degrees MUSE SYSTEM Calculated R [place] -17 degrees MUSE SYSTEM Calculated T [place] 38 degrees MUSE SYSTEM INTERPRETATION Normal sinus rhythm Low voltage QRS Borderline ECG When compared with ECG of 04-JUL-2016 19:47, (unconfirmed) No significant change was found Confirmed by MD Berry Douglas ([id number]) on 07/05/2016 1:55:10 PM MUSE SYSTEM 07/05/2016 7:21 AM EST 07/05/2016 1:55 PM EST Martha Rubalcava MD ECG ORDERABLES Performing Organization Address [facility] Co de Phone Number MUSE SYSTEM * (ABNORMAL) APTT (07/05/2016 7:09 AM EST) Pathologist [facility] Partial Thromboplastin Time 88(H) 25 - 35 sec [facility] Comment: The recommended therapeutic range for full dose, unfractionated heparin at [facility] is 80 ? 114 seconds. The use of the anti-Xa (heparin) level rather than the PTT is recommended for monitoring anticoagulation intensity in critically ill patients receiving unfractionated heparin by continuous IV infusion. Blood specimen (specimen) 07/05/2016 7:09 AM EST 07/05/2016 7:20 AM EST Narrative Resulting Agency Comment Spec In Lab Daniel Alberts MD HEMATOLOGY ORDERABLE S [facility] [place] [address] * Cardiac Enzymes (07/05/2016 1:58 AM EST) [facility] Troponin-T <0.03 <=0.03 ng/mL [facility] Comment: 0.03 ng/mL: Represents the 99th percentile upper reference limit for normals. >0.03 ng/mL: Elevated cardiac troponin T level indicative of myocardial damage. Diagnosis of acute, evolving or recent DC requires a typical rise and gradual fall of cTnT with at least ONE of the following: a) Ischemic symptoms b) Development of pathologic Q waves on the ECG c) ECG changes indicative of eschemia (S-T segment elevation/depression) d) Coronary artery intervention Serial bloods should be obtained for testing on admission, at 6 to 9 hrs and again at 12 to 24 hrs if earlier samples are negative and the clinical index of suspicion is high. Reference: [Myocardial infarction redefined? a consensus document of the Joint Society of Cardiology/[place] [employer]iology Committee for the redefinition of myocardial infarction. ??Journal of the [place] [employer] 2000; 36: 959-969] Creatine Kinase 58 0 - 160 unit/L [facility] Blood specimen (specimen) Venous Draw / Unknown 07/05/2016 1:58 AM EST 07/05/2016 2:17 AM EST Narrative Resulting Agency Comment Spec In Lab Martha Rubalcava MD CHEMISTRY ORDERA BLES Performing Organization Address City/[facility]/ZIP Co de Phone Number [facility] [place] [address] * Differential, Automated (07/05/2016 1:58 AM EST) [facility] Neutrophil % 58.6 % [facility] Neutrophil Absolute 4.55 1.70 - 6.10 x10(3)/[facility] Lymph % 30.6 % [facility] Lymphocytes Abs 2.4 0.9 - 3.2 x10(3)/[facility] Monocyte % 7.7 % [facility] Monocyte Abs 0.6 0.3 - 0.9 x10(3)/[facility] Eos % 2.6 % [facility] Eosinophils Abs 0.2 0.0 - 0.4 x10(3)/[facility] Basophil % 0.4 % [facility] Baso Absolute 0.0 0.0 - 0.1 x10(3)/[facility] Immature Gran % 0.10 % [facility] Comment: Immature granulocytes(IG's)percentage and absolute count will include metamyelocytes, myelocytes, and promyelocytes. Blood smears from CBCs yielding IG's will be scanned manually for concordance. If this scan disagrees with the automated IG or if promyelocytes are noted, a manual differential will be performed. Immature Gran Absolute 0.01 0.00 - 0.04 x10(3)/[facility] Blood specimen (specimen) 07/05/2016 1:58 AM EST 07/05/2016 2:17 AM EST Narrative Resulting Agency Comment Spec In Lab Martha Ruablcava MD HEMATOLOGY ORDER JOSÉ Performing Organization Address City/[facility]/ZIP Co de Phone Number [facility] [place] [address] * (ABNORMAL) Hemogram (07/05/2016 1:58 AM EST) White Blood Cell 7.8 4.0 - 9.5 x10(3)/[facility] Red Blood Cell 3.92(L) 4.00 - 5.21 x10(6)/[facility] Hemoglobin 11.8 11.7 - 15.5 gm/dL [facility] Hematocrit 34.1(L) 35.7 - 45.8 % [facility] Mean Cell Volume 87.0 82.6 - 94.4 fL [facility] Mean Cell Hemoglobin 30.1 27.1 - 32.0 pg [facility] Mean Cell Hemoglobin Concentration 34.6 31.7 - 35.0 gm/dL [facility] Platelet 124(L) 145 - 357 x10(3)/[facility] RDW Standard Deviation 39.9 37.0 - 46.0 [facility] RDW coefficient of variation 12.7 11.5 - 14.1 % [facility] Mean Platelet Volume 10.3 7.6 - 12.9 fL [facility] NRBC% auto 0.0 % [facility] NRBC Absolute 0.000 0.000 - 0.000 x10(3)/[facility] Blood specimen (specimen) 07/05/2016 1:58 AM EST 07/05/2016 2:17 AM EST Narrative Resulting Agency Comment Spec In Lab Martha Rubalcava MD HEMATOLOGY ORDER JOSÉ [facility] [place] [address] * (ABNORMAL) APTT (07/05/2016 1:58 AM EST) Partial Thromboplastin Time 148(Criti rashid) 25 - 35 sec [facility] Comment: Called by: walt, Read back by: vitaliy spangler, Date/Time:07/05/16 02:37. The recommended therapeutic range for full dose, unfractionated heparin at [facility] is 80 ? 114 seconds. The use of the anti-Xa (heparin) level rather than the PTT is recommended for monitoring anticoagulation intensity in critically ill patients receiving unfractionated heparin by continuous IV infusion. Blood specimen (specimen) 07/05/2016 1:58 AM EST 07/05/2016 2:17 AM EST Narrative Resulting Agency Comment Spec In Lab Martha Rubalcava MD HEMATOLOGY ORDER JOSÉ Performing Organization Address [facility] Co de Phone Number [facility] [place] [address] * Magnesium (07/05/2016 1:58 AM EST) [facility] Signature Magnesium 0.78 0.69 - 1.07 mmol/L [facility] Blood specimen (specimen) 07/05/2016 1:58 AM EST 07/05/2016 2:17 AM EST Narrative Resulting Agency Comment Spec In Lab Martha Rubalcava MD CHEMISTRY ORDERA BLES Performing Organization Address [facility] Co de Phone Number [facility] [place] [address] * Basic Metabolic Panel (non-fasting) (07/05/2016 1:58 AM EST) Glucose 163 65 - 199 mg/dL [facility] Comment:Diabetes: >=200 mg/d L plus symptoms Blood Urea Nitrogen 17 8 - 18 mg/dL [facility] Creatinine 0.85 0.70 - 1.20 mg/dL [facility] Comment: Please note that the pediatric reference intervals supplied above were not validated at [facility]. Results from pediatric patients should be interpreted in conjunction to the patient's age, height and muscle mass. Sodium 143 135 - 145 mmol/L [facility] Potassium 3.7 3.5 - 5.0 mmol/L [facility] Comment: Please note: ??Patients with WBC >100,000 may have falsely elevated Potassium levels. ??For accurate Potassium quantification in these patients send serum separator tube (gold top) for subsequent determinations. ??Contact the Clinical Chemistry Laboratory if there are any questions. Chloride 103 98 - 107 mmol/L [facility] Carbon Dioxide 26 22 - 31 mmol/L [facility] Anion Gap 14 5 - 15 mmol/L [facility] Calcium 8.9 8.5 - 10.5 mg/dL [facility] Est Glomerular Filtration Rate >60 >=60 [facility] Comment: This estimated GFR (eGFR) value was calculated using the MDRD equation which has been validated on patients between the ages of 18 and 70. The MDRD should not be used to assess kidney function in patients < 18 years of age or in patients with extremes of body mass, or in patients with acute kidney failure. This value should be multiplied by 1.2 for patients. For further information please copy and paste the following links into your internet browser. [email or web address] Blood specimen (specimen) 07/05/2016 1:58 AM EST 07/05/2016 2:17 AM EST Narrative Resulting Agency Comment Spec In Lab Martha Rubalcava MD CHEMISTRY ORDERA [facility] [place] [address] * XR Chest PA & Lateral (Generic) (07/04/2016 8:17 PM EST) Anatomical Region Laterality Modality Chest N/A Digital Radiogra phy Impressions 07/04/2016 8:42 PM EST No acute cardiopulmonary changes. Narrative 07/04/2016 8:42 PM EST EXAMINATION: XR CHEST PA AND LATERAL (GENERIC) CLINICAL HISTORY: chest pain TECHNIQUE: PA and lateral chest COMPARISON: AP portable chest 05/29/2016. FINDINGS: The cardiomediastinal silhouette and hilar structures are normal. The lungs are clear of acute changes. There are old left mid lateral healed rib fractures. Procedure Note Davie Diallo MD - 07/04/2016 EXAMINATION: XR CHEST PA AND LATERAL (GENERIC) CLINICAL HISTORY: chest pain TECHNIQUE: PA and lateral chest COMPARISON: AP portable chest 05/29/2016. FINDINGS: The cardiomediastinal silhouette and hilar structures are normal. Thelungs are clear of acute changes. There are old left mid lateral healed ribfractures. IMPRESSION No acute cardiopulmonary changes. Martha Rubalcava MD IMG DX ORDERABLE S * EKG 12 Lead (07/04/2016 7:47 PM EST) Ventricular rate 62 BPM MUSE SYSTEM Atrial Rate 62 BPM MUSE SYSTEM P-R Interval 204 ms MUSE SYSTEM QRS Duration 88 ms MUSE SYSTEM Q-T Interval 418 ms MUSE SYSTEM QTC Calculated (Bezet) 424 ms MUSE SYSTEM Calculated P [place] 27 degrees MUSE SYSTEM Calculated R [place] -15 degrees MUSE SYSTEM Calculated T [place] 33 degrees MUSE SYSTEM INTERPRETATION Normal sinus rhythm with 1st degree A-V block Otherwise normal ECG Confirmed by MD Berry Douglas (57) on 07/05/2016 1:53:43 PM MUSE SYSTEM 07/04/2016 7:47 PM EST 07/05/2016 1:53 PM EST Martha Rubalcava MD ECG ORDERABLES MUSE SYSTEM * POCT Glucose (07/04/2016 7:37 PM EST) Pathologist [facility] Glucose, POC 111 65 - 199 mg/dL [facility] Comment: Supplemental ranges: <140 mg/dL before meals <180 mg/dL all other times of the day Blood specimen (specimen) 07/04/2016 7:37 PM EST 07/04/2016 7:37 PM EST Gideon Rodriguez MD POINT OF CARE TEST O RDERABLES [facility] [place] [address] * Magnesium (07/04/2016 6:51 PM EST) Magnesium 0.82 0.69 - 1.07 mmol/L [facility] Blood specimen (specimen) Venous Draw / Unknown 07/04/2016 6:51 PM EST 07/04/2016 7:17 PM EST Narrative Resulting Agency Comment Spec In Lab Martha Rubalcava MD CHEMISTRY ORDERA BLES [facility] [place] [address] * Lipid Panel (07/04/2016 6:51 PM EST) Cholesterol, Total 119 <=199 mg/dL [facility] Comment: Recommendations of the NCEP Adult Treatment Panel for the following risk cutoff thresholds for the [place] population: Desirable: <200 mg/dL Borderline High: 200-239 mg/dL High: > or = 240 mg/dL Triglyceride 83 <=149 mg/dL [facility] Comment: Reference Range: Normal triglycerides: ??<150 mg/dL Borderline high: ??150-199 mg/dL High: ??200-499 mg/dL Very high: ??>qt=148 mg/dL LUIS F 2001; 285(19):2873-5259 HDL Cholesterol 46 >=40 mg/dL [facility] Comment: Reference range: ??Low HDL: ?? < 40 mg/dL ??Normal: ?40-60 mg/dL ??Desirable: > 60 mg/dL LUIS F 2001; 285(19):6515-2101 LDL Cholesterol 56 <=99 mg/dL [facility] Comment: Reference range: ?? Optimal: ?<100 mg/dL ?? Near Optimal/Above Optimal: ?? 100-129 mg/dL ?? Borderline high: ?130-159 mg/dL ?? High: ? 160-189 mg/dL ?? Very high: ?>nw=917 mg/dL LUIS F 2001: 285(19):4441-2988 Cholesterol/HDL Ratio 2.6 ratio [facility] Comment: A Cholesterol to HDL ratio below 4:1 is desirable. ??Studies suggest that increased CAD risk occurs at ratios above 5 for females and above 6 for men. ? [place] [employer] Association ??(http://www.americanheart.org) ? Maura Int Med, 1994; 121:641 ? AM J Med, 1998; 105(1A):48S Blood specimen (specimen) Venous Draw / Unknown 07/04/2016 6:51 PM EST 07/04/2016 7:17 PM EST Narrative Resulting Agency Comment Spec In Lab Martha Rubalcava MD CHEMISTRY ORDERA BLES Performing Organization Address [facility] de Phone Number [facility] [place] [address] * TSH (07/04/2016 6:51 PM EST) Thyroid Stimulating Hormone 0.98 0.27 - 4.20 mcIU/mL [facility] Blood specimen (specimen) Venous Draw / Unknown 07/04/2016 6:51 PM EST 07/04/2016 7:17 PM EST Narrative Resulting Agency Comment Spec In Lab Martha Rubalcava MD CHEMISTRY ORDERA BLES Performing Organization Address [facility] Co de Phone Number [facility] [place] [address] * (ABNORMAL) Comprehensive metabolic panel (non-fasting) (07/04/2016 6:51 PM EST) Glucose 111 65 - 199 mg/dL [facility] Comment:Diabetes: >=200 mg/d L plus symptoms Blood Urea Nitrogen 14 8 - 18 mg/dL [facility] Creatinine 0.97 0.70 - 1.20 mg/dL [facility] Comment: Please note that the pediatric reference intervals supplied above were not validated at [facility]. Results from pediatric patients should be interpreted in conjunction to the patient's age, height and muscle mass. Sodium 144 135 - 145 mmol/L [facility] Potassium 4.0 3.5 - 5.0 mmol/L [facility] Comment: Please note: ??Patients with WBC >100,000 may have falsely elevated Potassium levels. ??For accurate Potassium quantification in these patients send serum separator tube (gold top) for subsequent determinations. ??Contact the Clinical Chemistry Laboratory if there are any questions. Chloride 102 98 - 107 mmol/L [facility] Carbon Dioxide 29 22 - 31 mmol/L [facility] Anion Gap 13 5 - 15 mmol/L [facility] Calcium 9.4 8.5 - 10.5 mg/dL [facility] Protein, Total 6.7 6.1 - 8.0 gm/dL [facility] Albumin 4.2 3.2 - 5.2 gm/dL [facility] Aspartate Aminotransferase 17 0 - 30 unit/L [facility] Alanine Aminotransferase 12 0 - 30 unit/L [facility] Alkaline Phosphatase 62 40 - 104 unit/L [facility] Bilirubin, Total 0.3 0.2 - 1.3 mg/dL [facility] Bilirubin, Direct 0.1 0.0 - 0.3 mg/dL [facility] Est Glomerular Filtration Rate 57(L) >=60 [facility] Comment: This estimated GFR (eGFR) value was calculated using the MDRD equation which has been validated on patients between the ages of 18 and 70. The MDRD should not be used to assess kidney function in patients < 18 years of age or in patients with extremes of body mass, or in patients with acute kidney failure. This value should be multiplied by 1.2 for patients. For further information please copy and paste the following links into your internet browser. [email or web address] Blood specimen (specimen) Venous Draw / Unknown 07/04/2016 6:51 PM EST 07/04/2016 7:17 PM EST Narrative Resulting Agency Comment Spec In Lab Martha Rubalcava MD CHEMISTRY ORDERA BLES [facility] [place] [address] * Differential, Automated (07/04/2016 6:51 PM EST) Neutrophil % 68.0 % [facility] Neutrophil Absolute 5.70 1.70 - 6.10 x10(3)/[facility] Lymph % 23.8 % [facility] Lymphocytes Abs 2.0 0.9 - 3.2 x10(3)/[facility] Monocyte % 6.1 % [facility] Monocyte Abs 0.5 0.3 - 0.9 x10(3)/[facility] Eos % 1.5 % [facility] Eosinophils Abs 0.1 0.0 - 0.4 x10(3)/[facility] Basophil % 0.4 % [facility] Baso Absolute 0.0 0.0 - 0.1 x10(3)/[facility] Immature Gran % 0.20 % [facility] Comment: Immature granulocytes(IG's)percentage and absolute count will include metamyelocytes, myelocytes, and promyelocytes. Blood smears from CBCs yielding IG's will be scanned manually for concordance. If this scan disagrees with the automated IG or if promyelocytes are noted, a manual differential will be performed. Immature Gran Absolute 0.02 0.00 - 0.04 x10(3)/[facility] Blood specimen (specimen) 07/04/2016 6:51 PM EST 07/04/2016 7:17 PM EST Narrative Resulting Agency Comment Spec In Lab Martha Rubalcava MD HEMATOLOGY ORDER JOSÉ [facility] [place] [address] * Hemogram (07/04/2016 6:51 PM EST) [facility] White Blood Cell 8.4 4.0 - 9.5 x10(3)/[facility] Red Blood Cell 4.26 4.00 - 5.21 x10(6)/[facility] Hemoglobin 13.0 11.7 - 15.5 gm/dL [facility] Hematocrit 37.9 35.7 - 45.8 % [facility] Mean Cell Volume 89.0 82.6 - 94.4 fL [facility] Mean Cell Hemoglobin 30.5 27.1 - 32.0 pg [facility] Mean Cell Hemoglobin Concentration 34.3 31.7 - 35.0 gm/dL [facility] Platelet 158 145 - 357 x10(3)/[facility] RDW Standard Deviation 41.2 37.0 - 46.0 [facility] RDW coefficient of variation 12.7 11.5 - 14.1 % [facility] Mean Platelet Volume 10.5 7.6 - 12.9 fL [facility] NRBC% auto 0.0 % [facility] NRBC Absolute 0.000 0.000 - 0.000 x10(3)/[facility] Blood specimen (specimen) 07/04/2016 6:51 PM EST 07/04/2016 7:17 PM EST Narrative Resulting Agency Comment Spec In Lab Martha Rubalcava MD HEMATOLOGY ORDER JOSÉ [facility] [place] [address] * Cardiac Enzymes (07/04/2016 6:51 PM EST) [facility] Troponin-T <0.03 <=0.03 ng/mL [facility] Comment: 0.03 ng/mL: Represents the 99th percentile upper reference limit for normals. >0.03 ng/mL: Elevated cardiac troponin T level indicative of myocardial damage. Diagnosis of acute, evolving or recent DC requires a typical rise and gradual fall of cTnT with at least ONE of the following: a) Ischemic symptoms b) Development of pathologic Q waves on the ECG c) ECG changes indicative of eschemia (S-T segment elevation/depression) d) Coronary artery intervention Serial bloods should be obtained for testing on admission, at 6 to 9 hrs and again at 12 to 24 hrs if earlier samples are negative and the clinical index of suspicion is high. Reference: [Myocardial infarction redefined? a consensus document of the Joint Society of Cardiology/[place] [employer] Cardiology Committee for the redefinition of myocardial infarction. ??Journal of the [place] College [employer]iology 2000; 36: 959-969] Creatine Kinase 68 0 - 160 unit/L [facility] Blood specimen (specimen) 07/04/2016 6:51 PM EST 07/04/2016 7:17 PM EST Narrative Resulting Agency Comment Spec In Lab Martha Rubalcava MD CHEMISTRY ORDERA BLES Performing Organization Address City/[facility]/ZIP Co de Phone Number [facility] [place] [address] * (ABNORMAL) pro-Brain Natriuretic Peptide (07/04/2016 6:51 PM EST) NT-proBNP 327(H) <=125 pg/mL [facility] Blood specimen (specimen) 07/04/2016 6:51 PM EST 07/04/2016 7:17 PM EST Narrative Resulting Agency Comment Spec In Lab Martha Rubalcava MD CHEMISTRY ORDERA BLES Performing Organization Address City/[facility]/ZIP Co de Phone Number [facility] [place] [address] * (ABNORMAL) APTT (07/04/2016 6:51 PM EST) Partial Thromboplastin Time 118(H) 25 - 35 sec [facility] Comment: The recommended therapeutic range for full dose, unfractionated heparin at [facility] is 80 ? 114 seconds. The use of the anti-Xa (heparin) level rather than the PTT is recommended for monitoring anticoagulation intensity in critically ill patients receiving unfractionated heparin by continuous IV infusion. Blood specimen (specimen) 07/04/2016 6:51 PM EST 07/04/2016 7:17 PM EST Narrative Resulting Agency Comment Spec In Lab Martha Rubalcava MD HEMATOLOGY ORDER JOSÉ Performing Organization Address [facility] Co de Phone Number [facility] [place] [address] * Prothrombin Time (07/04/2016 6:51 PM EST) Prothrombin Time 14.5 12.0 - 15.0 sec [facility] Comment: An INR <2.0 indicates adequate procoagulant activity for hemostasis in most patients without underlying bleeding disorders, though the INR may not adequately reflect hemostatic capacity in patients with liver disease and synthetic impairment. The recommended target INR range for therapeutic anticoagulation is 2.0 ? 3.0 for most applications, though lower and higher ranges may be appropriate depending on clinical circumstances. International Normalization Ratio 1.1 0.9 - 1.1 [facility] Blood specimen (specimen) 07/04/2016 6:51 PM EST 07/04/2016 7:17 PM EST Narrative Resulting Agency Comment Spec In Lab Martha Rubalcava MD HEMATOLOGY ORDER JOSÉ Performing Organization Address [facility] Co de Phone Number [facility] [place] [address] documented in this encounter Visit Diagnoses Not on filedocumented in this encounter Administered Medications Inactive Administered Medications - up to 3 most recent administrations Medication Order MAR Action Action Date Dose Rate Site aspirin EC tablet 81 mg 81 mg, Oral, DAILY, First dose on 07/05/16 at 0900, Until Discontinued, Routine Given 07/06/2016 9:01 AM EST 81 mg Given 07/05/2016 9:08 AM EST 81 mg ciprofloxacin (CIPRO) tablet 250 mg 250 mg, Oral, 2 TIMES DAILY, 6 doses, First dose on Thu07/05/16 at 2300, Last dose on Thu07/08/16 at 0700, Routine, Indication for (Active or Suspected): Urinary Tract/Pyelonephritis Given 07/06/2016 6:10 AM EST 250 mg Given 07/05/2016 11:36 PM EST 250 mg clopidogrel (PLAVIX) tablet 75 mg 75 mg, Oral, DAILY, First dose on Thu07/05/16 at 0900, Until Discontinued, Routine Given 07/06/2016 9:01 AM EST 75 mg Given 07/05/2016 9:08 AM EST 75 mg dextrose 50% injection 25-50 mL 25-50 mL (12.5-25 g), Intravenous, EVERY 1 HOUR PRN, Starting on Thu07/04/16 at 2003, Until Thu07/06/16 at 1507, Low blood sugar, For BG 50-70: 120 [...] the duration of the active insulin., Routine famotidine (PEPCID) tablet 20 mg 20 mg, Oral, 2 TIMES DAILY, First dose on Thu07/04/16 at 2100, Until Discontinued, Routine Given 07/06/2016 9:01 AM EST 20 mg Given 07/05/2016 8:14 PM EST 20 mg Given 07/05/2016 9:08 AM EST 20 mg fentaNYL 50 mcg/mL multi-dose injection ONCE PRN, Starting on Thu07/05/16 at 0957, Until 07/05/16 at 1054, Intra-Operative (Intra-Procedure), Routine Given 07/05/2016 9:57 AM EST 25 mcg glucagon (human recombinant) injection 1 mg 1 mg, Intramuscular, EVERY 1 HOUR PRN, Low blood sugar, Starting on Thu07/04/16 at 2002, Until 07/06/16 at 1507, For BG 50-70: 120 mL Juice or [...] treatment for the duration of the active insulin. insulin lispro (humaLOG) VIAL injection 1-4 Units 1-4 Units, Subcutaneous, 3 TIMES DAILY BEFORE MEALS, First dose on Thu07/04/16 at 2030, Until Discontinued, CORRECTION BOLUS Sensitive to insulin lean patient or total daily dose of all insulin needed to achieve glycemic control less than 30 units BG 140 - 160 Give 1 unit BG 161 - 200 Give 2 units BG 201 - 240 Give 3 units BG greater than 240, give 4 units and recheck BG in 2 hours. If BG remains greater than 240, repeat 4 units (no more than three times) & call for new basal insulin orders. If less than 240 after two hours, give no insulin and resume prior schedule., Routine meTOPROLOL tartrate (LOPRESSOR) tablet 50 mg 50 mg, Oral, 2 TIMES DAILY, First dose on Thu07/05/16 at 0900, Until Discontinued, Routine Given 07/06/2016 9:01 AM EST 50 mg Given 07/05/2016 8:14 PM EST 50 mg morphine 2 mg/mL carpuject 2 mg 2 mg, Intravenous, EVERY 6 HOURS PRN, Starting on Thu07/04/16 at 2002, Until 07/06/16 at 1507, Pain, Routine Given 07/05/2016 9:00 PM EST 2 mg Given 07/04/2016 8:33 PM EST 2 mg nitroGLYcerin (NITROSTAT) SL tablet 0.4 mg 0.4 mg, Sublingual, EVERY 5 MIN PRN, Starting on Thu07/04/16 at 2003, Until Thu07/06/16 at 1507, Chest pain, SL nitroglycerin may be repeated every 5 minutes as needed up to 3 doses, Routine Given 07/05/2016 7:30 AM EST 0.4 mg Given 07/05/2016 7:26 AM EST 0.4 mg protamine injection ONCE PRN, Starting on 07/05/16 at 1043, Until 07/05/16 at 1054, Cath (Intra-Procedure), Routine Given 07/05/2016 10:43 AM EST 20 mg rosuvastatin (CRESTOR) tablet 40 mg 40 mg, Oral, DAILY, First dose on 07/05/16 at 0900, Until Discontinued, Routine Given 07/06/2016 9:01 AM EST 40 mg Given 07/05/2016 9:08 AM EST 40 mg sodium chloride 0.9 % flush 5 mL 5 mL, Intravenous, 2 TIMES DAILY, First dose on Thu07/04/16 at 2100, Until Discontinued, Routine Given 07/06/2016 9:02 AM EST 10 mLs Given 07/05/2016 8:14 PM EST 5 mLs Given 07/05/2016 9:00 AM EST 5 mLs documented in this encounter Active and Recently Administered Medications Times are shown in EST. Scheduled Medication Order 07/04/2016 07/05/2016 07/06/2016 aspirin EC tablet 81 mg 81 mg, Oral, DAILY, First dose on 07/05/16 at 0900, Until Discontinued, Routine 0908 (Given - Provider: Joycelyn Combs RN)1014 ([facility] Hold - Provider: Admin Adt - Reason: Transfer to a Procedural area)1149 ([facility] Unhold - Provider: Admin Adt) 0901 (Given - Provider: Joycelyn Combs RN) ciprofloxacin (CIPRO) tablet 250 mg 250 mg, Oral, 2 TIMES DAILY, 6 doses, First dose on Thu07/05/16 at 2300, Last dose on Thu07/08/16 at 0700, Routine, Indication for (Active or Suspected): Urinary Tract/Pyelonephritis 4726 (Given - Provider: Elizabeth Giordano RN) 0610 (Given - Provider: Elizabeth Giordano RN) clopidogrel (PLAVIX) tablet 75 mg 75 mg, Oral, DAILY, First dose on Thu07/05/16 at 0900, Until Discontinued, Routine 09 (Given - Provider: Joycelyn Combs RN)1014 (OCT Hold - Provider: Admin Adt - Reason: Transfer to a Procedural area)1149 ([facility] Unhold - Provider: Admin Adt) 09 (Given - Provider: Joycelyn Combs RN) docusate sodium (COLACE) capsule 100 mg 100 mg, Oral, 2 TIMES DAILY, First dose on Thu07/04/16 at 2100, Until Discontinued, Routine 2099 (Not Given - Provider: Elizabeth Giordano RN - Reason: Patient/family refused) 0900 (Not Given - Provider: Joycelyn Combs RN - Reason: Patient/family refused)1014 (OCT Hold - Provider: Admin Adt - Reason: Transfer to a Procedural area)1149 ([facility] Unhold - Provider: Admin Adt)2099 (Not Given - Provider: Elizabeth Giordano RN - Reason: Patient/family refused) 0900 (Not Given - Provider: Joycelyn Combs RN - Reason: Patient/family refused) famotidine (PEPCID) tablet 20 mg 20 mg, Oral, 2 TIMES DAILY, First dose on Thu07/04/16 at 2100, Until Discontinued, Routine 2031 (Given - Provider: Elizabeth Giordano RN) 0908 (Given - Provider: Joycelyn Combs RN)1014 ([facility] Hold - Provider: Admin Adt - Reason: Transfer to a Procedural area)1149 ([facility] Unhold - Provider: Admin Adt)2013 (Given - Provider: Elizabeth Giordano RN) 0901 (Given - Provider: Joycelyn Combs RN) insulin lispro (humaLOG) VIAL injection 1-4 Units(Linked Group 1) 1-4 Units, Subcutaneous, 3 TIMES DAILY BEFORE MEALS, First dose on Thu07/04/16 at 2030, Until Discontinued, CORRECTION BOLUS Sensitive to insulin lean patient or total daily dose of all insulin needed to achieve glycemic control less than 30 units BG 140 - 160 Give 1 unit BG 161 - 200 Give 2 units BG 201 - 240 Give 3 units BG greater than 240, give 4 units and recheck BG in 2 hours. If BG remains greater than 240, repeat 4 units (no more than three times) & call for new basal insulin orders. If less than 240 after two hours, give no insulin and resume prior schedule., Routine 2030 (Not Given - Provider: Elizabeth Giordano RN - Reason: Order parameters not met) 0730 (Not Given - Provider: Joycelyn Combs RN - Reason: Order parameters not met)1014 ([facility] Hold - Provider: Admin Adt - Reason: Transfer to a Procedural area)1130 (Not Given - Provider: Joycelyn Combs RN - Reason: Order parameters not met)1149 ([facility] Unhold - Provider: Admin Adt)1630 (Not Given - Provider: Joycelyn Combs RN - Reason: Order parameters not met) 0730 (Not Given - Provider: Joycelyn Combs RN - Reason: Order parameters not met)1130 (Not Given - Provider: Joycelyn Combs RN - Reason: Order parameters not met) meTOPROLOL tartrate (LOPRESSOR) tablet 50 mg 50 mg, Oral, 2 TIMES DAILY, First dose on 07/05/16 at 0900, Until Discontinued, Routine 0900 (Not Given - Provider: Joycelyn Combs RN - Reason: Order parameters not met)1014 ([facility] Hold - Provider: Admin Adt - Reason: Transfer to a Procedural area)1149 ([facility] Unhold - Provider: Admin Adt)2013 (Given - Provider: Elizabeth Giordano RN) 0901 (Given - Provider: Joycelyn Combs RN) potassium chloride (K-DUR/KLOR-CON) extended release tablet 40 mEq (COMPLETED) 40 mEq, Oral, ONCE, 1 dose, On 07/05/16 at 0600, 20 mEq tablet may be dissolved in water for administration, Routine 0630 (Given - Provider: Elizabeth Giordano RN) rosuvastatin (CRESTOR) tablet 40 mg 40 mg, Oral, DAILY, First dose on 07/05/16 at 0900, Until Discontinued, Routine 0908 (Given - Provider: Joycelyn Combs RN)1014 ([facility] Hold - Provider: Admin Adt - Reason: Transfer to a Procedural area)1149 ([facility] Unhold - Provider: Admin Adt) 0901 (Given - Provider: Joycelyn Combs RN) sodium chloride 0.9 % flush 5 mL 5 mL, Intravenous, 2 TIMES DAILY, First dose on Thu07/04/16 at 2100, Until Discontinued, Routine 2099 (Not Given - Provider: Elizabeth Giordano RN - Reason: See comment - Comment: pt has running IV) 0900 (Given - Provider: Joycelyn Combs RN)1014 ([facility] Hold - Provider: Admin Adt - Reason: Transfer to a Procedural area)1149 ([facility] Unhold - Provider: Admin Adt)2013 (Given - Provider: Elizabeth Giordano RN) 0902 (Given - Provider: Joycelyn Combs RN) Continuous Medication Order 07/04/2016 07/05/2016 07/06/2016 heparin 25,000 units in dextrose 5% 500 mL infusion (CANCELED)(Linked Group 2) 0-5,000 Units/hr (0-100 mL/hr), Intravenous, CONTINUOUS, Starting on Thu07/04/16 at 2030, Until 07/05/16 at 2005, BEGIN infusion at 750 units per hr [...] decrease rate by 50 units per hr ( 1 units/kg/hr) - 130 - 145 seconds, stop [...] Indication: ACS (STEMI vs NSTEMI vs UA) 2022 (Rate/Dose Change - Provider: Elizabeth Giordano RN) 023 (Paused - Provider: Elizabeth Giordano RN)0342 (Rate/Dose Change - Provider: Elizabeth Giordano RN)0918 (Paused - Provider: Joycelyn Combs, RN)1014 (OCT Hold - Provider: Admin Adt - Reason: Transfer to a Procedural area)1149 ([facility] Unhold - Provider: Admin Adt) sodium chloride 0.9% infusion (CANCELED) 100 mL/hr, Intravenous, CONTINUOUS, Starting on 07/05/16 at 0800, Until 07/05/16 at 1045 0746 (New Bag - Provider: Joycelyn Combs RN)1014 ([facility] Hold - Provider: Admin Adt - Reason: Transfer to a Procedural area)1045 ([facility] Unhold - Provider: Admin Adt) sodium chloride 0.9% infusion 100 mL/hr, Intravenous, CONTINUOUS, Starting on 07/05/16 at 1115, Until 07/06/16 at 0214, Recovery (Recovery-Hospital Unit) 1115 (New Bag - Provider: Marcella Lorenzo RN)2018 (New Bag - Provider: Elizabeth Giordano RN) 0211 (Stopped - Provider: Elizabeth Giordano RN) PRN Medication Order 07/04/2016 07/05/2016 07/06/2016 dextrose 50% injection 25-50 mL(Linked Group 3) 25-50 mL (12.5-25 g), Intravenous, EVERY 1 HOUR PRN, Starting on 07/04/16 at 2003, Until 07/06/16 at 1507, Low blood sugar, For BG 50-70: 120 [...] the duration of the active insulin., Routine 1014 ([facility] Hold - Provider: Admin Adt - Reason: Transfer to a Procedural area)1149 ([facility] Unhold - Provider: Admin Adt) fentaNYL 50 mcg/mL multi-dose injection (CANCELED) ONCE PRN, Starting on 07/05/16 at 0957, Until 07/05/16 at 1054, Intra-Operative (Intra-Procedure), Routine 0957 (Given - Provider: Minoo Dobbs RN) glucagon (human recombinant) injection 1 mg(Linked Group 3) 1 mg, Intramuscular, EVERY 1 HOUR PRN, Low blood sugar, Starting on Thu07/04/16 at 2002, Until 07/06/16 at 1507, For BG 50-70: 120 mL Juice or [...] treatment for the duration of the active insulin. 1014 ([facility] Hold - Provider: Admin Adt - Reason: Transfer to a Procedural area)1149 ([facility] Unhold - Provider: Admin Adt) lidocaine (XYLOCAINE) 10 mg/mL (1 %) injection 3 mg 3 mg (0.3 mL), Subcutaneous, ONCE PRN, 1 dose, Starting on Thu07/04/16 at 2002, Until 07/06/16 at 1507, for discomfort with PIV insertion, Routine 1014 ([facility] Hold - Provider: Admin Adt - Reason: Transfer to a Procedural area)1149 ([facility] Unhold - Provider: Admin Adt) LORazepam (ATIVAN) tablet 0.5 mg 0.5 mg, Oral, EVERY 8 HOURS PRN, Starting on Thu07/04/16 at 2002, Until 07/06/16 at 1507, Anxiety, Routine 1014 ([facility] Hold - Provider: Admin Adt - Reason: Transfer to a Procedural area)1149 ([facility] Unhold - Provider: Admin Adt) morphine 2 mg/mL carpuject 2 mg 2 mg, Intravenous, EVERY 6 HOURS PRN, Starting on Thu07/04/16 at 2002, Until 07/06/16 at 1507, Pain, Routine 203 (Given - Provider: Elizabeth Giordano, RN) 1014 ([facility] Hold - Provider: Admin Adt - Reason: Transfer to a Procedural area)1149 ([facility] Unhold - Provider: Admin Adt)2100 (Given - Provider: Elizabeth Giordano, RN) nitroGLYcerin (NITROSTAT) SL tablet 0.4 mg 0.4 mg, Sublingual, EVERY 5 MIN PRN, Starting on Thu07/04/16 at 2002, Until 07/06/16 at 1507, Chest pain, SL nitroglycerin may be repeated every 5 minutes as needed up to 3 doses, Routine 0726 (Given - Provider: Joycelyn Combs, RN)0730 (Given - Provider: Joycelyn Combs RN)1014 ([facility] Hold - Provider: Admin Adt - Reason: Transfer to a Procedural area)1149 ([facility] Unhold - Provider: Admin Adt) protamine injection (CANCELED) ONCE PRN, Starting on 07/05/16 at 1043, Until 07/05/16 at 1054, Cath (Intra-Procedure), Routine 1043 (Given - Provider: Elisa Mobley, CHRISTINA) sodium chloride 0.9 % flush 5-20 mL 5-20 mL, Intravenous, EVERY 1 MIN PRN, Starting on Thu07/04/16 at 2002, Until 07/06/16 at 1507, flush, Flush pertains to all indwelling lines. Flush per protocol found in the job aid using the link provided on this medication record., Routine 1014 ([facility] Hold - Provider: Admin Adt - Reason: Transfer to a Procedural area)1149 ([facility] Unhold - Provider: Admin Adt) No Frequency Medication Order 07/04/2016 07/05/2016 07/06/2016 heparin (porcine) 25,000 unit/500 mL (50 unit/mL) infusion (COMPLETED) 1 dose, Starting on Thu07/04/16 at 1843, Until Thu07/04/16 at 1859, JR BALL: cabinet override 1859 (New Bag - Provider: Jr Ball RN - Comment: Continued from OSH.) Linked Groups Order Group 1: POCT Fingerstick Glucose (CANCELED) Routine, 4 TIMES DAILY BEFORE MEALS & AT BEDTIME, First occurrence on Thu07/04/16 at 2200, Until Specified, Consider choosing FOUR TIMES A DAY BEFORE MEALS AND AT BEDTIME as frequency for: Patients who have a good hypoglycemia awareness And insulin lispro (humaLOG) VIAL injection 1-4 UnitsJump to med 1-4 Units, Subcutaneous, 3 TIMES DAILY BEFORE MEALS, First dose on Thu07/04/16 at 2030, Until Discontinued, CORRECTION BOLUS Sensitive to insulin lean patient or total daily dose of all insulin needed to achieve glycemic control less than 30 units BG 140 - 160 Give 1 unit BG 161 - 200 Give 2 units BG 201 - 240 Give 3 units BG greater than 240, give 4 units and recheck BG in 2 hours. If BG remains greater than 240, repeat 4 units (no more than three times) & call for new basal insulin orders. If less than 240 after two hours, give no insulin and resume prior schedule., Routine Group 2: heparin (porcine) injection 0-4,000 Units (CANCELED) 0-4,000 Units, Intravenous, BOLUS PER HEPARIN PROTOCOL, Starting on Thu07/04/16 at 2002, Until 07/05/16 at 2004, Per Protocol, START ADJUSTMENT SCHEDULE 6 HOURS AFTER STARTING INFUSION aPTT Between 60 - 79 seconds: Bolus 1,900 units aPTT Less than 60 seconds: Bolus 3,800 units Increase infusion and recheck aPTT in 6 hours. , Routine And heparin 25,000 units in dextrose 5% 500 mL infusion (CANCELED)Jump to med 0-5,000 Units/hr (0-100 mL/hr), Intravenous, CONTINUOUS, Starting on Thu07/04/16 at 2029, Until 07/05/16 at 2004, BEGIN infusion at 750 units per hr [...] decrease rate by 50 units per hr ( 1 units/kg/hr) - 130 - 145 seconds, stop [...] NSTEMI vs UA) Group 3: dextrose 50% injection 25-50 mLJump to med 25-50 mL (12.5-25 g), Intravenous, EVERY 1 HOUR PRN, Starting on Thu07/04/16 at 2002, Until 07/06/16 at 1507, Low blood sugar, For BG 50-70: 120 [...] insulin., Routine Or glucagon (human recombinant) injection 1 mgJump to med 1 mg, Intramuscular, EVERY 1 HOUR PRN, Low blood sugar, Starting on Thu07/04/16 at 2002, Until 07/06/16 at 1507, For BG 50-70: 120 mL Juice or [...] treatment for the duration of the active insulin. documented in this encounter Care Teams Four Slide Machine Operator Relationship Specialty Start Date End Date Tang Ling MD [address] [place] [id number] PCP - General General Internal Medicine 07/04/16 documented as of this encounter
--- OUTSIDE RECORDS SUMMARY | 2024-05-02 14:25 | XMS_ITS | Encounter Summary ---
Author Organization [facility] Address [facility] [place] [address] Care Team Providers Care Restoration Silversmith Name Role Phone Unavailable Primary Care Provider Unavailabl e Reason for Referral * Consultation (Routine) - Closed Specialty Diagnoses / Procedures Referred By Vanesa soto Referred To Contact Neurology Diagnoses Unspecified visual disturbance Adin Jones MD [facility] [place] [address] Dionne Rodarte MD [facility] [place] [address] Referral ID Status Reason Start Date Expiration Date V isits Requested Visits Authorized [id number] Closed Consult, Test & Treat 04/17/2016 04/17/2017 1 1 Reason for Visit * Reason Comments Headache head and right eye p ain * Consultation (Routine) - Closed Specialty Diagnoses / Procedures Referred By Vanesa soto Referred To Contact Ophthalmology Diagnoses photopsia and OD pain Procedures Consult, Test & Treat Gokul Marinelli MD [address] [place] [id number] Adin Jones MD [facility] [place] [address] Referral ID Status Reason Start Date Expiration Date V isits Requested Visits Authorized [id number] Closed Consult, Test & Treat 02/28/2016 02/27/2017 1 1 Encounter Details Date Type Department Care Team (Late st Contact Info) Description 04/17/2016 7:30 AM EDT Office [place] [address] Adin Jones MD [facility] [place] [address] Unspecified visual disturbance (Primary Dx); Visual field defects Social History Tobacco Use Types Packs/Day Years Used Date Smoking Tobacco: Never Alcohol Use Standard Drinks/Week Comments Yes 0 (1 standard drink = 0.6 oz pur e alcohol) social Sex and Gender Information Value Date Recorded Sex Assigned at Not on file Gender Identity Not on file Sexual Orientation Not on file documented as of this encounter Progress Notes * Adin Patel MD - 04/17/2016 7:30 AM EDT Lou Mo has noted constant right temporal pain, with referred pain to the right periorbital region since August of this year. She endorses some photophobia, especially in the right eye. She denies any scalp tenderness. GCA screen negative. Her pain is somewhat relief with tylenol. She has had a history of migraine as a young adult, with associated photophobia. On examination today, Lou Mo exhibited normal visual function, color vision, with no evidence of a relative afferent pupillary defect that would suggest an underlying optic nerve dysfunction. Static visual landrum were full bilaterally. Sensorimotor examination revealed orthotropia in alldirections. 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 On palpation, there was no evidence of trochleitis or infraorbital nerve sensitivity. She was tender on palpation of the occipital nerve. Her current symptoms could be indicative of occipital neuralgia. I have suggested that she see our headache specialist, Dr. Rodarte for further evaluation and management. Referral placed. documented in this encounter Plan of Treatment Upcoming Encounters Date Type Department Care Team (Late st Contact Info) Description 07/06/2024 1:30 PM EST Office Visit Cardiology at [address] [phone] Delta Reyes MD [facility] [place] [address] Scheduled Referrals Name Type Priority Associated Diagnoses Orde r Schedule Referral to Neurology Outpatient Referral Routine Unspecified visual disturbance Ordered: 04/17/2016 documented as of this encounter Procedures Procedure Name Priority Date/Time Associated Diagnosis Comments OCT OPTIC NERVE - OU - BOTH EYES Routine 04/17/2016 9:47 AM EDT Visual field defects SENSORIMOTOR EXAM Routine 04/17/2016 9:4 7 AM EDT Unspecified visual disturbance AUTOMATED VISUAL FIELD - EXTENDED - OU- BOTH EYES Routine 04/17/2016 9:47 AM EDT Unspecified visual disturbance documented in this encounter Results * OCT OPTIC [id number] EYES (04/17/2016 9:47 AM EDT) Anatomical Region Laterality Modality Other Narrative 04/17/2016 9:47 AM EDT Right Eye Quality was good. Findings include normal observations. Temporal thickness was normal. Superior thickness was normal. Nasal thickness was normal. Inferior thickness was normal. Left Eye Quality was good. Findings include normal observations. Temporal thickness was normal. Superior thickness was normal. Nasal thickness was normal. Inferior thickness was normal. Notes Normal RNFL OU Adin Jones MD OPHTHALMOLOGY SE RVICES ORDERABLES * SENSORIMOTOR EXAM [AR SPECIAL EYE EXAM] - OU- BOTH EYES (04/17/2016 9:47 AM EDT) Anatomical Region Laterality Modality Other Narrative 04/17/2016 9:47 AM EDT Orthotropic in all directions of gaze Adin Jones MD OPHTHALMOLOGY SE RVICES ORDERABLES * AUTOMATED VISUAL FIELD - EXTENDED - OU- BOTH EYES (04/17/2016 9:47 AM EDT) Anatomical Region Laterality Modality Other Narrative 04/17/2016 9:47 AM EDT Right Eye Threshold was 24-2. Strategy was GEOVANI. Reliability was good. Findings include normal observations. Left Eye Threshold was 24-2. Strategy was GEOVANI. Reliability was good. Findings include normal observations. Adin Jones MD OPHTHALMOLOGY SE RVICES ORDERABLES documented in this encounter Visit Diagnoses Diagnosis Unspecified visual disturbance- Primary Visual field defects Visual field defect, unspecified documented in this encounter
--- OUTSIDE RECORDS SUMMARY | 2024-05-02 14:25 | XMS_ITS | Encounter Summary ---
Author Organization [facility] Address [facility] [place] [address] Care Team Providers Care Cloth Grader Supervisor Name Role Phone Unavailable Primary Care Provider Unavailabl e Encounter Details Date Type Department Care Team (Late st Contact Info) Description 09/10/2015 - 09/10/2015 11:59 PM EST Hospital Encounter Radiology Library at [facility] [place] [address] Adin Jones MD [facility] [place] [address] Pain Discharge Disposition: Home Social History Tobacco Use Types Packs/Day Years Used Date Smoking Tobacco: Former Alcohol Use Standard Drinks/Week Comments Yes 0 (1 standard drink = 0.6 oz pur e alcohol) social Sex and Gender Information Value Date Recorded Sex Assigned at Not on file Gender Identity Not on file Sexual Orientation Not on file documented as of this encounter Medications at Time of Discharge Medication Sig Dispensed Refills Start Date End Date aspirin 81 mg EC tablet Take 81 mg by mouth daily. rosuvastatin (CRESTOR) 40 mg tablet Take 40 mg by mouth daily. metoprolol tartrate (LOPRESSOR) 50 mg tablet Take 50 mg by mouth 2 times daily. 07/22/2017 diphenhydrAMINE (BENADRYL) 25 mg tablet Take 25 mg by mouth nightly as needed. 07/22/2017 sitaGLIPtin (JANUVIA) 25 mg tablet Take 100 mg by mouth daily. 12/11/2015 documented as of this encounter Plan of Treatment Upcoming Encounters Date Type Department Care Team (Late st Contact Info) Description 07/06/2024 1:30 PM EST Office Visit Cardiology at [address] [phone] Delta Reyes MD [facility] [place] [address] documented as of this encounter Procedures Procedure Name Priority Date/Time Associated Diagnosis Comments FILM LIBRARY STORAGE ONLY MR HEAD Routine 09/10/2015 12:00 AM EST Pain documented in this encounter Results * Film Library- Storage only MR Head (09/10/2015 12:00 AM EST) Narrative [facility] - 02/27/2016 3:15 PM EDT This exam is for storage only and is auto-finalizing. Adin Jones MD IMG FILM LIBRARY ORDERABLES [place], [place] documented in this encounter Visit Diagnoses Diagnosis Pain Generalized pain documented in this encounter
--- OUTSIDE RECORDS SUMMARY | 2024-05-02 14:25 | XMS_ITS | Encounter Summary ---
Author Organization [facility] Address [facility] [place] [address] Care Team Providers Care Grant Officer Name Role Phone Unavailable Primary Care Provider Unavailabl e Reason for Visit * Auth/Cert Specialty Diagnoses / Procedures Referred By Vanesa t Referred To Contact Diagnoses S/P angioplasty with stent ASCVD Procedures CARDIAC CATHETERIZATION Referral ID Status Reason Start Date Expiration Date Visits Re quested Visits Authorized [id number] 1 1 Encounter Details Date Type Department Care Team (Latest Contact Info) Description 05/28/2016 9:47 AM EDT - 05/29/2016 10:29 AM EDT Hospital Encounter [place] [address] Forrest Amaya MD [facility] [address] ASCVD (arteriosclerotic cardiovascular disease); S/P coronary artery stent placement Discharge Disposition: Home Social History Tobacco Use [...] Sign Reading Time Taken Comments Blood Pressure 102/45 05/29/2016 7:57 AM EDT Pulse 74 05/29/2016 7:57 AM EDT Temperature 36.6 ??C (97.9 ??F) 05/29/2016 7:57 AM ED T Respiratory Rate 16 05/29/2016 7:57 AM EDT Oxygen Saturation 97% 05/29/2016 7:57 AM EDT Inhaled Oxygen Concentration - - Weight 62.1 kg (137 lb) 05/28/2016 11:31 AM EDT Height 154.9 cm (5' 1) 05/28/2016 11:31 AM EDT Body Mass Index 25.89 05/28/2016 11:31 AM EDT documented in this encounter Discharge Summaries * Joanne Fortune MD - 05/29/2016 8:16 AM EDT Discharge Summary Patient Name: Lou Mo Patient Age: 70 y.o. Language: Belarusian Race: White Ethnicity: Not nor Admit date: 05/28/2016 Discharge date and time: 05/29/2016 Attending Physician: Forrest Amaya V, MD Discharge Physician: Forrest Amaya V, MD Follow-up Recommendations for Providers: - dual antiplatelet regimen as follows: - aspirin 81 mg daily lifelong - clopidogrel 75 mg daily for 12 months after PCI (after 6 months depending on need/urgency of thyroidectomy can discuss temporary discontinuation of plavix with wellness instructor, Dr Mabry) - can restart metformin 48hrs after contrast administration/cath on 05/30/2016 - recommend follow up with cardiology, Dr Mabry, in 3-4 weeks Inpatient Provider Contact Information: Forrest Amaya V, MD- attending Discharge Diagnoses (Hospital Problems) and Secondary Diagnoses (Chronic Problems): Active Hospital Problems Diagnosis ??? S/P angioplasty with stent Resolved Hospital Problems Diagnosis Date Resolved No resolved problems to display. Active Non-Hospital Problems Diagnosis ??? Chest pain ??? Unstable angina ??? CIS - Chest Pain ??? CIS - DM ??? CIS - Dyslipidemia ??? CIS - GERD ??? CIS - HTN Operations/Major Procedures: Operations: Procedure(s) with comments: CARDIAC CATHETERIZATION - Procedure: Coronary Angiography History of Presentation: Ms Mo has a PMH of ASCVD with prior cardiac caths (1995, 2009 and last in 06/11/2013) showing near normal coronaries with with mild diffuse disease and calcification in proximal LAD. She also has aHx of prior CP with an entertained diagnosis of MSK type pain, HTN, HLD, ex-tobacco use, FHx with her mother having CAD in her 60s, and DM. Denies any Hx of significant bleed. ?? 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 Per the available note she exercised for 5 min, achieving 78% PMHR, andhad some CP, although reportedly different than her exertional tightness, and there were no diagnostic EKG changes. However since the test she reports having felt a near constant chest heaviness, worse with exertion, but unrelieved otherwise. And also notes significant fatigue, more so than in the past. Given her symptoms, and potential upcoming thyroid surgery, she has been referred for cardiac cath by her wellness instructor Dr Mabry. Hospital Course: The patient underwent cardiac catheterization on 05-28-2016 and underwent stent insertion with 2.50x 18 mm Resolute (NIESHA) to mid LAD and 2.50 x 08 mm Resolute (NIESHA) to proximal D1 lesion (bifurcation). The patient was admitted following cardiac catheterization for overnight monitoring and observation. The patient did well overnight without significant chest pain or arrhythmias on telemetry. The right femoral/radial access site was evaluated and the radial pulse was palpable with no evidence of vascular compromise to the right hand. Cardiac biomarkers and a repeat ECG were reviewed with no evidence of active ischemia. VS and renal function remained stable. The patient ambulated with nursing without chest discomfort or exertional dyspnea. The patient met criteria for discharge, and was released home in stable condition. Functional and Cognitive Status: Independent in ALDs and IADLs, A&O x 3, at baseline Important Studies and Lab Data: Labs: Lab Results Component Value Date WBC 6.7 05/29/2016 HGB 11.7 05/29/2016 HCT 34.5 (L) 05/29/2016 PLATELET 151 05/29/2016 No results for input(s): INR in the last 168 hours. Lab Results Component Value Date NA 143 05/29/2016 K 3.7 05/29/2016 CL 106 05/29/2016 CO2 23 05/29/2016 BUN 15 05/29/2016 CREATININE 0.85 05/29/2016 Recent Labs 05/29/16 0636 05/29/16 0042 CK 77 61 TROPONINT Not Perf 0.05* Lab Results Component Value Date CHLPL 153 06/11/2013 HDL 39 (L) 06/11/2013 CHOLHDL 3.9 06/11/2013 TRIG 127 06/11/2013 LDLDIRECT 100 (H) 06/11/2013 Coronary Angiography 05/28/2016 Dominance: Right ? Left Main The left main was normal. ? Left Anterior Descending There was a 35% long segmental stenosis of the proximal segment of the left anterior descending artery (LAD). The LAD was large. The mid segment of the LAD had a long segmental 85% stenosis. This lesion involved bifurcation. There was an 85% single discrete stenosis of the proximal segment of the first diagonal branch (Diagonal 1) of the LAD. The Diagonal 1 was moderate in size. ? Left Circumflex The left circumflex (LCX) was normal. ? Right Coronary Artery The right coronary artery (RCA) was normal. ? Ramus The ramus was normal. ? Intervention Summary: Left Anterior Descending Artery Mid 85% Stent insertion was performed on the 85% stenosis in the mid segment of the LAD. This was a de novolesion. According to the ACC/AHA classification system, this lesion was a type B2 high risk lesion.Primary prevention of restenosis was the indication for stent insertion. This was the culprit lesion. Vessel flow pre intervention was YAHAIRA 3. The lesion involves a bifurcation with the D1. This bifurcation lesion was treated with a two stent, 'T' technique and a final kissing balloon post-dilation. Stent insertion was accomplished through a 6 Fr. EBU 3.5 guide. The lesion was predilated with a 2.50mm EUPHORA 15 MM balloon with a maximum inflation pressure of 12 atmospheres. A premounted 2.50 x 18 mm Resolute (NIESHA) was deployed with a maximum inflation pressure of 9 atmospheres. Following stent deployment, the lesion was dilated using a 3.00mm NC EMERGE 12 MM balloon with a maximum inflationpressure of 8 atmospheres. The final outcome was defined as successful. There was no residual stenosis following this intervention. The final YAHAIRA flow was 3. ? First Diagonal Branch of the LAD Proximal 85% Stent insertion was performed on the 85% stenosis in the proximal segment of the Diagonal 1. This was a de rossy lesion. This lesion was designated a type B2 high risk lesion based on ACC/AHA classification system. Primary prevention of restenosis was the indication for stent insertion. This was theculprit lesion. Vessel flow pre intervention was YAHAIRA 3. The lesion involves a bifurcation with theLAD. This bifurcation lesion was treated with a two stent, 'T' technique and a final kissing balloon post-dilation. Stent insertion was accomplished through a 6 Fr. EBU 3.5 guide. The lesion was predilated with a 2.50mm APEX 12 MM balloon with a maximum inflation pressure of 12 atmospheres. A premounted 2.50 x 08 mm Resolute (NIESHA) was deployed with a maximum inflation pressure of 10 atmospheres. Following stent deployment, the lesion was dilated using a 2.50mm APEX 12 MM balloon with a maximum inflation pressure of 8 atmospheres. The final outcome was defined as successful. There was no residual stenosis following this intervention. The final YAHAIRA flow was 3. ? Vascular Access Management: Mechanical Compression of the right radial artery access site was performed. ? Conclusions: * One vessel coronary artery disease (LAD) * Successful stent insertion of the mid LAD lesion * Successful stent insertion of the proximal D1 lesion * Drug Eluting Stents Deployed. ? Complications/Events: The patient had no complications during these procedures. ? Recommendations: The patient's medical regimen was changed as follows: Drug Eluting Stents Deployed ASA 325 mg Chewed and Ticagrelor 180 mg PO administered in the forestry laborer. Recommend DAPT for 12 months. Pending Studies and Lab Data: None Discharge Conditions/Prognosis: Good Discharge to: Home Updated Allergies/ADRs: Allergies Allergen Reactions ??? Cis Free Text Allergy Hymenoptera (Bee) Stings. ??? Ibuprofen HIVES Immunizations Given this Hospitalization: Immunization History Administered Date(s) Administered ??? Influenza PF, Split (High Dose) 05/29/2016 ??? Influenza Vaccine, Whole 05/29/2008 Discharge Medications: Your Medications New Medications Dose Details clopidogrel 75 mg Tab Commonly known as: PLAVIX Take 1 tablet by mouth daily. 75 mg Quantity: 30 tablet Refills: 11 nitroGLYcerin 0.4 mg Subl Commonly known as: NITROSTAT Place 1 tablet under the tongue every 5 minutes as needed for Chest pain. 0.4 mg Quantity: 90 tablet Refills: 12 Continued medications, unchanged Dose Details aspirin 81 mg Tbec Take 81 mg by mouth daily. 81 mg Refills: 0 diphenhydrAMINE 25 mg Tab Commonly known as: BENADRYL Take 25 mg by mouth nightly as needed. 25 mg Refills: 0 metFORMIN 1,000 mg Tab Commonly known as: GLUCOPHAGE Take 1,000 mg by mouth 2 times daily (with meals). 1000 mg Refills: 0 meTOPROLOL tartrate 50 mg Tab Commonly known as: LOPRESSOR Take 50 mg by mouth 2 times daily. 50 mg Refills: 0 rosuvastatin 40 mg Tab Commonly known as: CRESTOR Take 40 mg by mouth daily. 40 mg Refills: 0 Smoking Status at Discharge: History Smoking Status ??? Never Smoker Smokeless Tobacco ??? Never Used Instructions Given to Patient at Discharge: Patient Instructions Cardiology Instructions Call your doctor if: Chest pain, dyspnea, pain or swelling in legs occurs. If you have non-emergent questions between now and the time of your follow up appointments: -During 8am-5pm Thursday through Thursday call [phone] to speak with a nurse in the cardiology clinic -All other times call [phone] and ask to speak to the interventional sale consultant second hand paper machine. MEDICATIONS - restart your metformin on 05/30/2016 - you need to be on daily Plavix for at least 1 year and aspirin for lifetime to help prevent clotsforming inside of your stent. - keep nitroglycerin with you at all times, if you have chest pain, can take 1 tablet under your tongue every 5 minutes up to 3 tablets. If your pain does not resolve you need to call 911. Return to work/ usual actvities: 1 week, as tolerated. Do not lift anything greater than 1 gallon for milk for 1 week You can shower the day after your procedure, but don't take any tub baths or soak in pools for 1 week after your procedure. Driving: No driving for 48 hours after catheterization. Follow up Appointments: Primary care provider: Cardiology: JENNIFER FREITAS MD [phone] Follow up as planned or as needed. Dr. Mabry In 3-4 weeks Call to confirm appointment General Instructions None Discharge References/Attachments None documented in this encounter Discharge Instructions * Patient Instructions* Joanne Fortune MD - 05/28/2016 6:50 PM EDT Cardiology Instructions Call your doctor if: Chest pain, dyspnea, pain or swelling in legs occurs. If you have non-emergent questions between now and the time of your follow up appointments: -During 8am-5pm Thursday through Thursday call [phone] to speak with a nurse in the cardiology clinic -All other times call [phone] and ask to speak to the interventional sale consultant second hand paper machine. MEDICATIONS - restart your metformin on 05/30/2016 - you need to be on daily Plavix for at least 1 year and aspirin for lifetime to help prevent clotsforming inside of your stent. - keep nitroglycerin with you at all times, if you have chest pain, can take 1 tablet under your tongue every 5 minutes up to 3 tablets. If your pain does not resolve you need to call 911. Return to work/ usual actvities: 1 week, as tolerated. Do not lift anything greater than 1 gallon for milk for 1 week You can shower the day after your procedure, but don't take any tub baths or soak in pools for 1 week after your procedure. Driving: No driving for 48 hours after catheterization. Follow up Appointments: Primary care provider: Cardiology: JENNIFER FREITAS MD [phone] Follow up as planned or as needed. Dr. Mabry In 3-4 weeks Call to confirm appointment documented in this encounter Medications at Time [...] as of this encounter Progress Notes * Forrest Amaya MD - 05/29/2016 10:29 AM EDT Patient Name: Lou Mo Patient Age: 70 y.o. Birthdate: 1945 Admit date: 05/28/2016 Attending Physician: Ninoska att. providers found Inpatient Interventional Cardiology Discharge Day Note Patient Name: Lou Mo Service: interventional cardiology Responsible Attending: Forrest mAaya MD Reason for continued hospitalization: Overnight observation after PCI Pending discharge today Active Problems: Active Hospital Problems Diagnosis ??? S/P angioplasty with stent Resolved Hospital Problems Diagnosis Date Resolved No resolved problems to display. Interval History: - uneventful night except for one reported episode of CP with response to SL NTG, no EKG changes and negative cardiac biomarkers; pt herself this morning however denied any symptoms - no angina or dyspnea - no access site pain - no arrhythmia on temetry Meds: Physical Exam: Vital Signs: reviewed Physical Exam Gen: NAD HEENT: No pallor, no jaundice CV: RRR, I/ murmur, JVP at 8 cmH2O Pulm: CTAB, no w/r/r Abd: Soft, NT, ND, +BS Vasc: 2+ radial and femoral pulses bilat. Access site c/d/i without hematoma or ecchymosis, drsg c/d/i Extr: Wwp, no c/c/e Lab Comments: Lab Results Component Value Date WBC 6.7 05/29/2016 HGB 11.7 05/29/2016 HCT 34.5 (L) 05/29/2016 MCV 90.1 05/29/2016 PLATELET 151 05/29/2016 Lab Results Component Value Date CREATININE 0.85 05/29/2016 BUN 15 05/29/2016 NA 143 05/29/2016 K 3.7 05/29/2016 CL 106 05/29/2016 CO2 23 05/29/2016 Lab Results Component Value Date CK 77 05/29/2016 TROPONINT Not Perf 05/29/2016 Troponin 0.05 Pertinent Radiographic/Diagnostic Results: ECG: reviewed Discharge Medication Checklist: Aspirin 81mg daily lifelong Clopidogrel/prasugrel plavix 75mg daily for 12 months Adrian inhibitor/or ARB not on at this time Beta Connor continued metoprolol Lipid Lowering continued crestor Nitroglycerin NTG SL PRN Assessment: oLu Mo is a 70 y.o. female who is POD #1 s/p PCI to LAD and Diag 1 (bifurcation) who was admitted overnight for observation. There were no adverse overnight events, patient tolerated cardiac walk without angina or dyspnea, remained hemodynamically stable, no evidence of active ischemia or vascular complications, stable renal fx. Patient is stable for discharge today. Plan: 1. Discharge today 2. F/U with cardiology in 3-4 weeks, Dr Raghavendra Fortune MD Interventional Electronics Technician Apprentice Interventional Cardiology Attending Note Patient seen and examined by me and discussed with Dr. Fortune. Please see her note which summarizes our findings and plan. Forrest Amaya M.D., F.A.C.C. baggage checker Pager 2020 * Susana Cerda RN - 05/29/2016 8:23 AM EDT Activity Summary: By discharge, patient will be able to perform self care, walk 5-7 minutes and go up and down stairs without signs or symptoms of ischemia. Pt completed cardiac walk with no CP or SOB VS immediately after climbing stairs were : HR 80 BP 114/55 O2 sat 99% RR 24. Date /Initials Baseline Response Symptoms/Comments 05/19 Activity HR 74 73 No CP or SOB. No rhythm change. Cardiac walk BP 102/45 101/45 O2 Sat 97 98 ECG SR SR * Forrest Amaya MD - 05/29/2016 7:42 AM EDT Patient Name: Lou Mo Patient Age: 70 y.o. Birthdate: 1945 Admit date: 05/28/2016 Attending Physician: Forrest Amaya MD Inpatient Interventional Cardiology Discharge Day Note Patient Name: Lou Mo Service: interventional cardiology Responsible Attending: Forrest Amaya MD Reason for continued hospitalization: Overnight observation after PCI Pending discharge today Active Problems: Active Hospital Problems Diagnosis ??? S/P angioplasty with stent Resolved Hospital Problems Diagnosis Date Resolved No resolved problems to display. Interval History: - uneventful night except for one reported episode of CP with response to SL NTG, no EKG changes and negative cardiac biomarkers; pt herself this morning however denied any symptoms - no angina or dyspnea - no access site pain - no arrhythmia on temetry Meds: ??? aspirin 81 mg Oral Daily ??? clopidogrel 75 mg Oral Daily ??? meTOPROLOL tartrate 50 mg Oral BID ??? rosuvastatin 40 mg Oral QPM ??? insulin lispro 1-4 Units Subcutaneous TID AC Physical Exam: Vital Signs: reviewed Physical Exam Gen: NAD HEENT: No pallor, no jaundice CV: RRR, I/ murmur, JVP at 8 cmH2O Pulm: CTAB, no w/r/r Abd: Soft, NT, ND, +BS Vasc: 2+ radial and femoral pulses bilat. Access site c/d/i without hematoma or ecchymosis, drsg c/d/i Extr: Wwp, no c/c/e Lab Comments: Lab Results Component Value Date WBC 6.7 05/29/2016 HGB 11.7 05/29/2016 HCT 34.5 (L) 05/29/2016 MCV 90.1 05/29/2016 PLATELET 151 05/29/2016 Lab Results Component Value Date CREATININE 0.85 05/29/2016 BUN 15 05/29/2016 NA 143 05/29/2016 K 3.7 05/29/2016 CL 106 05/29/2016 CO2 23 05/29/2016 Lab Results Component Value Date CK 77 05/29/2016 TROPONINT Not Perf 05/29/2016 Troponin 0.05 Pertinent Radiographic/Diagnostic Results: ECG: reviewed Discharge Medication Checklist: Aspirin 81mg daily lifelong Clopidogrel/prasugrel plavix 75mg daily for 12 months Adrian inhibitor/or ARB not on at this time Beta Connor continued metoprolol Lipid Lowering continued crestor Nitroglycerin NTG SL PRN Assessment: Lou Mo is a 70 y.o. female who is POD #1 s/p PCI to LAD and Diag 1 (bifurcation) who was admitted overnight for observation. There were no adverse overnight events, patient tolerated cardiac walk without angina or dyspnea, remained hemodynamically stable, no evidence of active ischemia or vascular complications, stable renal fx. Patient is stable for discharge today. Plan: 1. Discharge today 2. F/U with cardiology in 3-4 weeks, Dr Raghavendra Fortune MD Interventional Electronics Technician Apprentice Interventional Cardiology Attending Note Patient seen and examined by me and discussed with Dr. Fortune. Please see her note which summarizes our findings and plan. Forrset Amaya M.D., F.A.C.C. baggage checker Pager 2020 * Joanne Fortune MD - 05/28/2016 11:25 AM EDT Luo Mo is a 70 y.o. female referred for cardiac catheterization by Dr Ari Mabry for evaluation of chest pain and an abnormal exercise only stress test. Ms Mo has a PMH of ASCVD with prior cardiac caths (1995, 2009 and last in 06/11/2013) showing near normal coronaries with with mild diffuse disease and calcification in proximal LAD. She also has aHx of prior CP with an entertained diagnosis of MSK type pain, HTN, HLD, ex-tobacco use, FHx with her mother having CAD in her 60s, and DM. Denies any Hx of significant bleed. 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 Per the available note she exercised for 5 min, achieving 78% PMHR, andhad some CP, although reportedly different than her exertional tightness, and there were no diagnostic EKG changes. However since the test she reports having felt a near constant chest heaviness, worse with exertion, but unrelieved otherwise. And also notes significant fatigue, more so than in the past. Given her symptoms, and potential upcoming thyroid surgery, she has been referred for cardiac cath. There have not been any changes in health status since last seen in clinic. No fevers, no chills, no bleeding. Outpatient Prescriptions Marked as Taking for the 05/28/16 encounter (Hospital Encounter) Medication Sig Dispense Refill ??? metFORMIN (GLUCOPHAGE) 1,000 mg Tablet Take 1,000 mg by mouth 2 times daily (with meals). ??? aspirin 81 mg EC tablet Take 81 mg by mouth daily. ??? metoprolol tartrate (LOPRESSOR) 50 mg tablet Take 50 mg by mouth 2 times daily. ??? rosuvastatin (CRESTOR) 40 mg tablet Take 40 mg by mouth daily. BP 120/59 Pulse 73 Temp 36.6 ??C (97.9 ??F) (Oral) Resp 18 Ht 154.9 cm (5' 1) Wt 62.1 kg (137 lb) SpO2 98% BMI 25.89 kg/m2 PE NAD, overweight CV: RRR, S1 S2, soft grade I/ murmur, JVP estimated 7 cm H2O Pulm: CTAB, no w/r/r Abd: soft, NT, ND, +BS, no bruits Vasc: 2+ bilat radial with favorable Ceferino's test on the R, 2+ bilat femoral pulses w/o bruits, 2+ bilat DP pulse on left and 2+ PT pulse on right Extr: wwp, no edema Labs reviewed and notable for: 05/23/16: TC 229, HDL 42, LDL 153, TG 168 HGB 14.1, HCT 41, PLT 180 BUN 19, Cr 0.9, GFR >60 A/P 70 y.o. female here for cardiac catheterization. - proceed as planned - consent signed - no obvious CI to DAPT; she has not taken any of her medications in 48 hours, including her daily aspirin 81mg. On speaking with Ms Mo she states that her thyroid surgery is currently elective and to her knowledge can be delayed for a year if needed pending on cardiac findings/intervention - FULL code Joanne Fortune MD Interventional Electronics Technician Apprentice documented in this encounter H&P Notes * Forrest Amaya MD - 05/28/2016 4:04 PM EDT Post-PCI Admission History and Physical PCP: JENNIFER FREITAS MD Referring: Dr Ari Mabry Date of Admission: 05/28/2016 Admission Diagnosis: S/p PCI Problem List: Patient Active Problem List Diagnosis ??? S/P angioplasty with stent ??? Chest pain ??? Unstable angina ??? CIS - Chest Pain ??? CIS - DM ??? CIS - Dyslipidemia ??? CIS - GERD ??? CIS - HTN HPI: This 70 y.o. female is admitted with a chief complaint of CAD s/p PCI. I have reviewed the available records, interviewed and examined the patient. This patient is admitted post PCI for IV hydration, pain management, access site management in the setting of anticoagulation, serial cardiac biomarker monitoring, telemetry monitoring, evaluation oftheir medical condition, and cardiac rehabilitation. ROS/PMHx/Fam Hx/Soc Hx: Reviewed, see outpatient note. Physical Exam BP 119/61 Pulse 82 Temp 36.6 ??C (97.9 ??F) (Oral) Resp 18 Ht 154.9 cm (5' 1) Wt 62.1 kg (137 lb) SpO2 98% BMI 25.89 kg/m2 Gen: Well-appearing, NAD HEENT: No pallor, no jaundice CV: RRR, +I/ mumur Lungs: CTAB, no increased WOB Abd: Soft, NTND, +NABS Ext: Wwp, no c/c/e Vasc: 2+ radial and femoral pulses, access site c/d/i Assessment/ Plan: #CAD, s/p LAD and DIagonal - Admit for overnight monitoring - Telemetry, serial ECGs, cycle cardiac biomarkers - Dual antiplatelet therapy - IVF - Monitor access site - Cardiac rehab consult - Anticipate discharge in am Joanne Fortune MD Interventional Cardiology Cardiology Attending Note Patient seen and examined by me and discussed with Dr. Fortune. Please see her note which summarizes our findings and plan. 70 female admitted to Short Stay following elective complex PCI-Stent which was successful with good angiographic result without apparent complication. Forrest Amaya M.D., F.A.C.C. baggage checker Pager 2020 documented in this encounter Miscellaneous Notes * Plan of Care - Susana Cerda RN - 05/29/2016 10:15 AM EDT Problem: Patient Care Overview Goal: Plan of Care Review Outcome: Outcome (s) achieved Date Met: 05/29/16 05/29/16 1011 Plan of Care Review Progress improving Coping/Psychosocial Plan Of Care Reviewed With patient;daughter OUTCOME EVALUATION NOTE: The patient has met discharge criteria per policy. Discharge instruction reviewed and patient discharged to responsible adult. Patient???s pain level has been assessed and patient states that his/her level is tolerable at thistime. The After Visit Summary (AVS) and accompanying hand-outs have been reviewed with the patient; the patient verbalizes understanding at this time. Opportunity for clarification provided. All new medications have been reviewed with the patient and the appropriate hand-outs have been given to the patient. Reportable sign and symptoms have been reviewed with patient.OUTCOME SUMMARY: VSS, Pt completed cardiac walk. AVS reviewed with pt, questions answered. PLAN MOVING FORWARD: DC home with daughter INDIVIDUALIZED FALL PREVENTION INTERVENTIONS: Patient-specific fall risk factors per assessment: [current deficits]: NA Assistance [level of assistance required for transfers and ambulation]: independent Supervision [direct monitoring required during toileting and ADLs]: independent Surveillance [continuous indirect monitoring]: Self monitoring of rt wrist site, etc as instructed in AVS Patient-specific fall prevention interventions for sensory deficits provided, if applicable: NA CPG GOAL OUTCOME EVALUATION: Goal: Individualization & Mutuality Outcome: Outcome (s) achieved Date Met: 05/29/16 05/28/16 1800 Mutuality/Individual Preferences What Anxieties, Fears or Concerns Do You Have About Your Health or Care? none What Questions Do You Have About Your Health or Care? none What Information Would Help Us Give You More Personalized Care? none Goal: Fall Prevention-Safe Patient Handling Outcome: Outcome (s) achieved Date Met: 05/29/16 05/28/16 1700 05/28/16 1942 05/29/16 0249 Musculoskeletal Interventions Muscle Strengthening -- -- activity/mobility promoted;mobility in bed promoted Daily Care Interventions Self-Care Promotion -- -- independence encouraged Alverto Fall Risk History of Falling -- -- -- Secondary Diagnosis -- -- -- Ambulatory Aids -- -- -- Intravenous Therapy/Heparin/Saline Lock -- -- -- Gait/Transferring -- -- -- Mental Status -- -- -- Score -- -- -- Activity and Safety Assistive Device None -- -- OTHER [place]o Fall Risk -- -- -- Restraint Interventions Safety Promotion/Fall Prevention -- -- -- Positioning Body Position -- independent -- 05/29/16734 Musculoskeletal Interventions Muscle Strengthening -- Daily Care Interventions Self-Care Promotion -- [place] Fall Risk History of Falling 0 Secondary Diagnosis 15 Ambulatory Aids 0 Intravenous Therapy/Heparin/Saline Lock 20 Gait/Transferring 0 Mental Status 0 Score 35 Activity and Safety Assistive Device -- OTHER [place]o Fall Risk Med Restraint Interventions Safety Promotion/Fall Prevention fall prevention program maintained;nonskid shoes/slippers when outof bed;safety round/check completed Positioning Body Position -- Goal: Infection Control Outcome: Outcome (s) achieved Date Met: 05/29/16 05/28/16194105/29/16734 Safety Interventions Isolation Precautions -- standard precautions maintained Infection Prevention -- rest/sleep promoted Coping Strategies Supportive Measures counseling provided;decision-making supported;goal setting facilitated;positivereinforcement provided;problem solving facilitated;relaxation techniques promoted;self-care encouraged;verbalization of feelings encouraged -- Goal: Discharge Needs Assessment Outcome: Outcome (s) achieved Date Met: 05/29/16 05/28/16 1800 05/29/16 0248 Discharge Needs Assessment Concerns To Be Addressed -- no discharge needs identified Readmission Within The Last 30 Days -- no previous admission in last 30 days Equipment Needed After Discharge -- none Discharge Disposition -- home or self-care Current Health Anticipated Changes Related to Illness -- none Activity/Self Care Review of Systems Equipment Currently Used at Home -- none Living Environment Transportation Available car -- * Consult Note - Aleena Kaufman RN - 05/29/2016 9:30 AM EDT Lou Luis Mo was seen today by Cardiac Rehabilitation for: (no ) An activity evaluation - Patient completed the cardiac walk with nursing this morning. (yes ) Educational packet regarding CAD, cardiac risk factors, and managing angina given to patient. Heart diagram reviewed. Reviewed managing angina /use of sl nitroglycerin. Mediterranean diet guidelines briefly reviewed. Given parameters for home exercise. (yes ) Participation to the outpatient cardiac rehabilitation program at [facility] wasdiscussed. Patient agrees to a referral to this program. The referral will be sent at discharge and the patient should be contacted by the Program within 1- 2 weeks from discharge. * Plan of Care - Frannie Timmons RN - 05/29/2016 3:05 AM EDT Problem: Patient Care Overview Goal: Plan of Care Review Outcome: Ongoing (Interventions Implemented as Appropriate) 05/28/16 19405/29/16 0250 Plan of Care Review Progress -- progress towards functional goals is fair Coping/Psychosocial Plan Of Care Reviewed With patient;daughter -- OUTCOME EVALUATION NOTE: OUTCOME SUMMARY: Patient received in bed, A&O, VSS, denies pain/SOB, R radial access site CDI, +2 palpable pulses overnight. No drainage noted. C/O weakness with ambulation to bathroom , reported SOB once returned to bed, lungs CTA, VSS, BG WNL, Physician notified, new orders noted. Labs drawn, EKG obtained, CXR performed, nitro given for new onset chest tightness. SBP less than 90 after nitro, patient c/o nausea, physician again consulted. Zofran ordered and given with modest effect. Patient reports CP & SOB to have resolved but reports a CARDOSO at this time. Declines intervention prefers to sleep. CXR, EKG, labs reviewed by physician, no new orders noted. Monitoring closely. Comfort and safety measures maintained, CBIR. PLAN MOVING FORWARD: CTM I/O, labs, VS, pain, EKG & troponin in AM. cardiac walk and cardiac rehab consult in the AM. D/C home when able. INDIVIDUALIZED FALL PREVENTION INTERVENTIONS: Patient-specific fall risk factors per assessment: [current deficits]: IV access, secondary diagnosis Assistance [level of assistance required for transfers and ambulation]: Independent Supervision [direct monitoring required during toileting and ADLs]: A&O, uses call jaimes appropriately Surveillance [continuous indirect monitoring]: Hourly rounding Patient-specific fall prevention interventions for sensory deficits provided, if applicable: NA CPG GOAL OUTCOME EVALUATION: * Plan of Care - Susana Cerda RN - 05/28/2016 6:38 PM EDT Problem: Patient Care Overview Goal: Plan of Care Review Outcome: Ongoing (Interventions Implemented as Appropriate) 05/28/16 1755 Coping/Psychosocial Plan Of Care Reviewed With patient OUTCOME EVALUATION NOTE: OUTCOME SUMMARY: VSS, afebrile, O2 sats stable on RA, denies pain/SOB, rt wrist site CDI with palpable pulse, no bleeding, no hematoma. PLAN MOVING FORWARD: Observe rt wrist site, tele, am labs INDIVIDUALIZED FALL PREVENTION INTERVENTIONS: Patient-specific fall risk factors per assessment: [current deficits]: NA Assistance [level of assistance required for transfers and ambulation]: SBA Supervision [direct monitoring required during toileting and ADLs]: SBA Surveillance [continuous indirect monitoring]: Purposeful rounding, tele, pulse ox Patient-specific fall prevention interventions for sensory deficits provided, if applicable: Glasses on CPG GOAL OUTCOME EVALUATION: Goal: Individualization & Mutuality Outcome: Ongoing (Interventions Implemented as Appropriate) 05/28/16 1800 Mutuality/Individual Preferences What Anxieties, Fears or Concerns Do You Have About Your Health or Care? none What Questions Do You Have About Your Health or Care? none What Information Would Help Us Give You More Personalized Care? none Goal: Fall Prevention-Safe Patient Handling Outcome: Ongoing (Interventions Implemented as Appropriate) 05/28/16 1700 05/28/16 1755 05/28/16 1800 [place] Fall Risk History of Falling -- -- 0 Secondary Diagnosis -- -- 15 Ambulatory Aids -- -- 0 Intravenous Therapy/Heparin/Saline Lock -- -- 20 Gait/Transferring -- -- 0 Mental Status -- -- 0 Score -- -- 35 Activity and Safety Assistive Device None -- -- OTHER [place] Fall Risk -- -- Med Restraint Interventions Safety Promotion/Fall Prevention -- fall prevention program maintained;nonskid shoes/slippers when out of bed;safety round/check completed -- Positioning Body Position -- independent -- Goal: Infection Control Outcome: Ongoing (Interventions Implemented as Appropriate) 05/28/16 1755 Safety Interventions Isolation Precautions standard precautions maintained Infection Prevention rest/sleep promoted;environmental surveillance performed Coping Strategies Supportive Measures verbalization of feelings encouraged Goal: Discharge Needs Assessment Outcome: Ongoing (Interventions Implemented as Appropriate) 05/28/16 1800 Living Environment Transportation Available car documented in this encounter Plan of Treatment Upcoming Encounters Date Type Department Care Team (Late st Contact Info) Description 07/06/2024 1:30 PM EST Office Visit Cardiology at [address] [phone] Delta Reyes MD [facility] [place] [address] documented as of this encounter Procedures Procedure Name Priority Date/Time Associated Diagnosis Comments POCT GLUCOSE Routine 05/29/2016 7:25 AM EDT EKG 12-LEAD Routine 05/29/2016 7:13 AM EDT ASCVD (arteriosclerotic cardiovascular disease) CARDIAC ENZYMES ([facility]) Timed 05/29/2016 6:36 AM EDT XR CHEST ONE VIEW STAT 05/29/2016 1:2 0 AM EDT BMP W/FASTING GLUCOSE Routine 05/29/2016 12:42 AM EDT HEMOGRAM Routine 05/29/2016 12:42 AM EDT DIFFERENTIAL, AUTOMATED Routine 05/29/2016 12:42 AM EDT CARDIAC ENZYMES ([facility]) Routine 05/29/2016 12:42 AM EDT CBC (WITH DIFF) Routine 05/29/2016 12:42 AM EDT PRO-BRAIN NATRIURETIC PEPTIDE Routine 05/29/2016 12:42 AM EDT EKG 12-LEAD STAT 05/29/2016 12:04 AM EDT ASCVD (arteriosclerotic cardiovascular disease) GAS COLLECTION SYSTEM OPERATOR SCAN 05/29/2016 12:00 AM EDT POCT GLUCOSE Routine 05/28/2016 11:47 PM EDT POCT GLUCOSE Routine 05/28/2016 10:34 PM EDT POCT GLUCOSE Routine 05/28/2016 6:02 PM EDT EKG 12-LEAD Routine 05/28/2016 4:36 PM EDT ASCVD (arteriosclerotic cardiovascular disease) POCT GLUCOSE Routine 05/28/2016 2:26 PM EDT documented in this encounter Results * POCT Glucose (05/29/2016 7:25 AM EDT) Pathologist [facility] Glucose, POC 158 65 - 199 mg/dL [facility] Comment: Supplemental ranges: <140 mg/dL before meals <180 mg/dL all other times of the day Blood specimen (specimen) 05/29/2016 7:25 AM EDT 05/29/2016 7:25 AM EDT Forrest Oconnor MD POINT OF CARE TEST O RDERABLES Performing Organization Address City/State/[facility] Co de Phone Number [facility] [place] [address] * EKG 12 Lead (05/29/2016 7:13 AM EDT) Ventricular rate 69 BPM MUSE SYSTEM Atrial Rate 69 BPM MUSE SYSTEM P-R Interval 198 ms MUSE SYSTEM QRS Duration 86 ms MUSE SYSTEM Q-T Interval 418 ms MUSE SYSTEM QTC Calculated (Bezet) 447 ms MUSE SYSTEM Calculated P [place] 24 degrees MUSE SYSTEM Calculated R [place] -16 degrees MUSE SYSTEM Calculated T [place] 15 degrees MUSE SYSTEM INTERPRETATION Normal sinus rhythm Normal ECG When compared with ECG of 29-MAY-2016 00:04, (unconfirmed) No significant change was found Confirmed by MD JenniferGideon ([id number]) on 05/29/2016 3:58:54 PM MUSE SYSTEM 05/29/2016 7:13 AM EDT 05/29/2016 3:58 PM EDT Forrest Oconnor MD ECG ORDERABLES Performing Organization Address [facility]/ZIP Co de Phone Number MUSE SYSTEM * Cardiac Enzymes (05/29/2016 6:36 AM EDT) Troponin-T Not Perf <=0.03 ng/mL [facility] Comment: Unable to quantitate due to sample hemolysis. ??Sample redraw suggested. Called to Susana 05/29/16 07:26 0.03 ng/mL: Represents the 99th percentile upper reference limit for normals. >0.03 ng/mL: Elevated cardiac troponin T level indicative of myocardial damage. Diagnosis of acute, evolving or recent NM requires a typical rise and gradual fall [...] consensus document of the Joint Society of Cardiology/[place] [employer] Committee for the redefinition of myocardial infarction. ??Journal of the [place] College of Cardiology 2000; 36: 959-969] Creatine Kinase 77 0 - 160 unit/L [facility] Blood specimen (specimen) 05/29/2016 6:36 AM EDT 05/29/2016 6:43 AM EDT Narrative Resulting Agency Comment Spec In Lab Don Rock MD CHEMISTRY ORDERABLES Performing Organization Address City/[facility]/ZIP Co de Phone Number [facility] [place] [address] * XR Chest PA or AP 1 view (05/29/2016 1:20 AM EDT) Anatomical Region Laterality Modality Chest N/A Digital Radiogra phy Impressions 05/29/2016 1:27 AM EDT No acute cardiopulmonary process seen. Narrative 05/29/2016 1:27 AM EDT EXAMINATION: XR CHEST PA OR AP 1 VIEW CLINICAL HISTORY: sob TECHNIQUE: Frontal chest COMPARISON: April 05, 2010 FINDINGS: Streaky bibasilar subsegmental atelectasis and/or scarring. No confluent airspace opacity, pleural effusion, or pneumothorax definitively identified on this semierect image. Trachea midline. Cardiomediastinal contours are appreciable change. Procedure Note Tejas Butterfield MD - 05/29/2016 EXAMINATION: XR CHEST PA OR AP 1 VIEW CLINICAL HISTORY: sob TECHNIQUE: Frontal chest COMPARISON: April 05, 2010 FINDINGS: Streaky bibasilar subsegmental atelectasis and/or scarring. No confluent airspace opacity, pleural effusion, or pneumothorax definitivelyidentified on this semierect image. Trachea midline. Cardiomediastinal contours are appreciable change. IMPRESSION No acute cardiopulmonary process seen. Don Rock MD IMG DX ORDERABLES * pro-Brain Natriuretic Peptide (05/29/2016 12:42 AM EDT) NT-proBNP 88 <=125 pg/mL [facility] Blood specimen (specimen) Venous Draw / Unknown 05/29/2016 12:42 AM EDT 05/29/2016 12:47 AM EDT Narrative Resulting Agency Comment Spec In Lab Forrest Oconnor MD CHEMISTRY ORDERABLES [facility] [place] [address] * Differential, Automated (05/29/2016 12:42 AM EDT) Neutrophil % 64.3 % [facility] Neutrophil Absolute 4.28 1.70 - 6.10 x10(3)/[facility] Lymph % 26.5 % [facility] Lymphocytes Abs 1.8 0.9 - 3.2 x10(3)/[facility] Monocyte % 6.9 % [facility] Monocyte Abs 0.5 0.3 - 0.9 x10(3)/[facility] Eos % 1.5 % [facility] Eosinophils Abs 0.1 0.0 - 0.4 x10(3)/[facility] Basophil % 0.7 % [facility] Baso Absolute 0.0 0.0 - 0.1 x10(3)/[facility] Immature Gran % 0.10 % [facility] Comment: Immature granulocytes(IG's)percentage and absolute count will include metamyelocytes, myelocytes, and promyelocytes. Blood smears from CBCs yielding IG's will be scanned manually for concordance. If this scan disagrees with the automated IG or if promyelocytes are noted, a manual differential will be performed. Immature Gran Absolute 0.01 0.00 - 0.04 x10(3)/[facility] Blood specimen (specimen) 05/29/2016 12:42 AM EDT 05/29/2016 12:47 AM EDT Narrative Resulting Agency Comment Spec In Lab Forrest Oconnor MD HEMATOLOGY ORDERABLE S [facility] [place] [address] * (ABNORMAL) Hemogram (05/29/2016 12:42 AM EDT) White Blood Cell 6.7 4.0 - 9.5 x10(3)/mc L [facility] Red Blood Cell 3.83(L) 4.00 - 5.21 x10(6)/mc L [facility] Hemoglobin 11.7 11.7 - 15.5 gm/dL [facility] Hematocrit 34.5(L) 35.7 - 45.8 % [facility] Mean Cell Volume 90.1 82.6 - 94.4 fL [facility] Mean Cell Hemoglobin 30.5 27.1 - 32.0 pg [facility] Mean Cell Hemoglobin Concentration 33.9 31.7 - 35.0 gm/dL [facility] Platelet 151 145 - 357 x10(3)/mc L [facility] RDW Standard Deviation 39.8 37.0 - 46.0 fL [facility] RDW coefficient of variation 12.2 11.5 - 14.1 % [facility] Mean Platelet Volume 10.0 7.6 - 12.9 fL [facility] NRBC% auto 0.0 % [facility] NRBC Absolute 0.000 0.000 - 0.000 x10(3)/mc L [facility] Blood specimen (specimen) 05/29/2016 12:42 AM EDT 05/29/2016 12:47 AM EDT Narrative Resulting Agency Comment Spec In Lab Forrest Oconnor MD HEMATOLOGY ORDERABLE S [facility] [place] [address] * (ABNORMAL) BMP w/fasting Glucose (05/29/2016 12:42 AM EDT) Glucose Fasting 149(H) 65 - 99 mg/dL [facility] Comment: ?Fasting* Glucose Interpretive Criteria [...] of Diabetes Mellitus, Position Statement from the [place] Diabetes Association. ??Diabetes Care, Volume 33, Supplement 1, Aug 2009 Blood Urea Nitrogen 15 8 - 18 mg/dL [facility] Creatinine 0.85 0.70 - 1.20 mg/dL [facility] Comment: Please note that the pediatric reference intervals supplied above were not validated at [facility]. Results from pediatric patients should be interpreted [...] questions. Chloride 106 98 - 107 mmol/L [facility] Carbon Dioxide 23 22 - 31 mmol/L [facility] Anion Gap 14 5 - 15 mmol/L [facility] Calcium 8.4(L) 8.5 - 10.5 mg/dL [facility] Est Glomerular Filtration Rate >60 >=60 [facility] Comment: This estimated GFR (eGFR) value [...] the following links into your internet browser. [email or web address] Blood specimen (specimen) 05/29/2016 12:42 AM EDT 05/29/2016 12:47 AM EDT Narrative Resulting Agency Comment Spec In Lab Forrest Oconnor MD CHEMISTRY ORDERABLES [facility] [place] [address] * (ABNORMAL) Cardiac Enzymes (05/29/2016 12:42 AM EDT) Troponin-T 0.05(H) <=0.03 ng/mL [facility] Comment: 0.03 ng/mL: Represents the 99th percentile upper reference limit for normals. >0.03 ng/mL: Elevated cardiac troponin T level indicative of myocardial damage. Diagnosis of acute, evolving or recent NM requires a typical rise and gradual fall [...] consensus document of the Joint Society of Cardiology/[place] [employer] Committee for the redefinition of myocardial infarction. ??Journal of the [place] College [employer]iology 2000; 36: 959-969] Creatine Kinase 61 0 - 160 unit/L [facility] Blood specimen (specimen) 05/29/2016 12:42 AM EDT 05/29/2016 12:47 AM EDT Narrative Resulting Agency Comment Spec In Lab Forrest Oconnor MD CHEMISTRY ORDERABLES [facility] [place] [address] * EKG 12 Lead (05/29/2016 12:04 AM EDT) Ventricular rate 69 BPM MUSE SYSTEM Atrial Rate 69 BPM MUSE SYSTEM P-R Interval 212 ms MUSE SYSTEM QRS Duration 84 ms MUSE SYSTEM Q-T Interval 406 ms MUSE SYSTEM QTC Calculated (Bezet) 435 ms MUSE SYSTEM Calculated P [place] 48 degrees MUSE SYSTEM Calculated R [place] -25 degrees MUSE SYSTEM Calculated T [place] 40 degrees MUSE SYSTEM INTERPRETATION Sinus rhythm with 1st degree A-V block Low voltage QRS Borderline ECG When compared with ECG of 28-MAY-2016 16:36, (unconfirmed) No significant change was found Confirmed by MD SARAH, EDWARD ([id number]) on 05/29/2016 8:22:43 AM MUSE SYSTEM 05/29/2016 12:0 4 AM EDT 05/29/2016 8:22 AM EDT Forrest Oconnor MD ECG ORDERABLES MUSE SYSTEM * SCAN DOC: GAS COLLECTION SYSTEM OPERATOR (05/29/2016 12:00 AM EDT) Anatomical Region Laterality Modality Other Scanning Provider MEDIA MGR SCAN EXT O RDR/RSLT * POCT Glucose (05/28/2016 11:47 PM EDT) Glucose, POC 133 65 - 199 mg/dL [facility] Comment: Supplemental ranges: <140 mg/dL before meals <180 mg/dL all other times of the day Blood specimen (specimen) 05/28/2016 11:47 PM EDT 05/28/2016 11:47 PM EDT Forrest Oconnor MD POINT OF CARE TEST O RDERABLES Performing Organization Address [facility] Co de Phone Number [facility] [place] [address] * POCT Glucose (05/28/2016 10:34 PM EDT) Glucose, POC 156 65 - 199 mg/dL [facility] Comment: Supplemental ranges: <140 mg/dL before meals <180 mg/dL all other times of the day Blood specimen (specimen) 05/28/2016 10:34 PM EDT 05/28/2016 10:34 PM EDT Forrest Oconnor MD POINT OF CARE TEST O RDERABLES [facility] [place] [address] * POCT Glucose (05/28/2016 6:02 PM EDT) Glucose, POC 108 65 - 199 mg/dL [facility] Comment: Supplemental ranges: <140 mg/dL before meals <180 mg/dL all other times of the day Blood specimen (specimen) 05/28/2016 6:02 PM EDT 05/28/2016 6:02 PM EDT Forrest Oconnor MD POINT OF CARE TEST O RDERABLES Performing Organization Address [facility] Co de Phone Number [facility] [place] [address] * EKG 12 Lead (05/28/2016 4:36 PM EDT) Ventricular rate 83 BPM MUSE SYSTEM Atrial Rate 83 BPM MUSE SYSTEM P-R Interval 204 ms MUSE SYSTEM QRS Duration 84 ms MUSE SYSTEM Q-T Interval 392 ms MUSE SYSTEM QTC Calculated (Bezet) 460 ms MUSE SYSTEM Calculated P [place] 36 degrees MUSE SYSTEM Calculated R [place] -23 degrees MUSE SYSTEM Calculated T [place] 29 degrees MUSE SYSTEM INTERPRETATION Normal sinus rhythm Normal ECG When compared with ECG of 12-JUN-2013 07:07, QT has lengthened Confirmed by MD SARAH, AUGUSTA ([id number]) on 05/29/2016 8:22:27 AM MUSE SYSTEM 05/28/2016 4:36 PM EDT 05/29/2016 8:22 AM EDT Forrest Oconnor MD ECG ORDERABLES Performing Organization Address [facility] Phone Number MUSE SYSTEM * POCT Glucose (05/28/2016 2:26 PM EDT) Glucose, POC 111 65 - 199 mg/dL [facility] Comment: Supplemental ranges: <140 mg/dL before meals <180 mg/dL all other times of the day Blood specimen (specimen) 05/28/2016 2:26 PM EDT 05/28/2016 2:26 PM EDT Forrest Oconnor MD POINT OF CARE TEST O RDERABLES Performing Organization Address [facility] Co de Phone Number [facility] [place] [phone] documented in this encounter Visit Diagnoses Diagnosis ASCVD (arteriosclerotic cardiovascular disease) Unspecified cardiovascular disease S/P coronary artery stent placement Postsurgical percutaneous transluminal coronary angioplasty status S/P angioplasty with stent Postsurgical percutaneous transluminal coronary angioplasty status documented in this encounter Admitting Diagnoses Diagnosis S/P angioplasty with stent Postsurgical percutaneous transluminal coronary angioplasty status documented in this encounter Administered Medications Inactive Administered Medications - up to 3 most recent administrations Medication Order MAR Action Action Date Dose Rate Site acetaminophen (TYLENOL) tablet 650 mg 650 mg, Oral, EVERY 6 HOURS PRN, Starting on Thu05/28/16 at 1611, Until Thu05/29/16 at 1229, Pain, Mild Pain, Maximum dose of acetaminophen is 4000 mg from all sources in 24 hours., Routine aspirin EC tablet 81 mg 81 mg, Oral, DAILY, First dose on Amelia 05/29/16 at 0900, Until Discontinued, Recovery (Recovery-Hospital Unit), Routine Given 05/29/2016 8:38 AM EDT 81 mg clopidogrel (PLAVIX) tablet 300 mg 300 mg, Oral, ONCE, 1 dose, On Thu05/28/16 at 2200, Routine Given 05/28/2016 9:20 PM EDT 300 mg clopidogrel (PLAVIX) tablet 75 mg 75 mg, Oral, DAILY, First dose on Amelia 05/29/16 at 0900, Until Discontinued, Recovery (Recovery-Hospital Unit), Routine Given 05/29/2016 8:38 AM EDT 75 mg dextrose 50% injection 25-50 mL 25-50 mL (12.5-25 g), Intravenous, EVERY 1 HOUR PRN, Starting on Thu05/28/16 at 1746, Until Thu05/29/16 at 1229, Low blood sugar, For BG 50-70: 120 [...] the duration of the active insulin., Routine glucagon (human recombinant) injection 1 mg 1 mg, Intramuscular, EVERY 1 HOUR PRN, Low blood sugar, Starting on Thu05/28/16 at 1746, Until Amelia 05/29/16 at 1229, For BG 50-70: 120 mL Juice or [...] TIMES DAILY BEFORE MEALS, First dose on Thu05/28/16 at 1815, Until Discontinued, CORRECTION BOLUS Sensitive to insulin [...] Oral, 2 TIMES DAILY, First dose on Thu05/28/16 at 2100, Until Discontinued, Routine Given 05/28/2016 9:20 PM EDT 50 mg nitroGLYcerin (NITROSTAT) SL tablet 0.4 mg 0.4 mg, Sublingual, EVERY 5 MIN PRN, Starting on Thu05/28/16 at 1612, Until Thu05/29/16 at 1229, Chest pain, May repeat every 5 minutes for a total of three doses. Notify provider if chest pain not relieved with nitroglycerin. Do not administer nitroglycerin if the patinet has received or taken phosphodiesterase (PDE-5) inhibitors such as sildenafil, tadalafil or vardenafil within the last 24 to 72 hours., Recovery (Recovery-Hospital Unit), Routine Given 05/29/2016 12:29 AM EDT 0.4 mg ondansetron (ZOFRAN) injection 4 mg 4 mg, Intravenous, EVERY 8 HOURS PRN, Starting on Amelia 05/29/16 at 0049, Until Thu05/29/16 at 1229, Nausea Given 05/29/2016 1:00 AM EDT 4 mg rosuvastatin (CRESTOR) tablet 40 mg 40 mg, Oral, EVERY EVENING, First dose on Thu05/28/16 at 2100, Until Discontinued, Routine Given 05/28/2016 9:20 PM EDT 40 mg sodium chloride 0.9% infusion 100 mL/hr, Intravenous, CONTINUOUS, Starting on Thu05/28/16 at 1630, Until Thu05/28/16 at 1929, Recovery (Recovery-Hospital Unit) [facility] 05/28/2016 4:30 PM EDT 100 mL/hr 100 mL/hr Left Arm documented in this encounter Active and Recently Administered Medications Times are shown in EDT. Scheduled Medication Order 05/27/2016 05/28/2016 05/29/2016 aspirin EC tablet 81 mg 81 mg, Oral, DAILY, First dose on Thu05/29/16 at 0900, Until Discontinued, Recovery (Recovery-Hospital Unit), Routine 0838 (Given - Provid er: Radha Daly RN) clopidogrel (PLAVIX) tablet 300 mg (COMPLETED) 300 mg, Oral, ONCE, 1 dose, On Thu05/28/16 at 2200, Routine 2119 (Given - Provider: Frannie Timmons RN) clopidogrel (PLAVIX) tablet 75 mg 75 mg, Oral, DAILY, First dose on Thu05/29/16 at 0900, Until Discontinued, Recovery (Recovery-Hospital Unit), Routine 0838 (Given - Provid er: Radha Daly RN) insulin lispro (humaLOG) VIAL injection 1-4 Units(Linked Group 1) 1-4 Units, Subcutaneous, 3 TIMES DAILY BEFORE MEALS, First dose on Thu05/28/16 at 1815, Until Discontinued, CORRECTION BOLUS Sensitive to insulin [...] no insulin and resume prior schedule., Routine 1814 (Not Given - Provider: Susana Cerda RN - Reason: Order parameters not met - Comment: BG 108) 0730 (Not Given - Provider: Radha Daly RN - Reason: Patient/family refused) meTOPROLOL tartrate (LOPRESSOR) tablet 50 mg 50 mg, Oral, 2 TIMES DAILY, First dose on Thu05/28/16 at 2100, Until Discontinued, Routine 2119 (Given - Provider: Frannie Timmons RN) 0900 (Not Given - Provider: Radha Daly RN - Reason: See comment - Comment: low BPs) rosuvastatin (CRESTOR) tablet 40 mg 40 mg, Oral, EVERY EVENING, First dose on Thu05/28/16 at 2100, Until Discontinued, Routine 2119 (Given - Provider: Frannie Timmons, CHRISTINA) Continuous Medication Order 05/27/2016 05/28/2016 05/29/2016 sodium chloride 0.9% infusion () 100 mL/hr, Intravenous, CONTINUOUS, Starting on Thu05/28/16 at 1630, Until Thu05/28/16 at 1929, Recovery (Recovery-Hospital Unit) 1630 (New Bag - Provider: Marcella Lorenzo RN - Comment: over 3 hours, 300 ml total, 500 ml bag hung) PRN Medication Order 05/27/2016 05/28/2016 05/29/2016 acetaminophen (TYLENOL) tablet 650 mg 650 mg, Oral, EVERY 6 HOURS PRN, Starting on Thu05/28/16 at 1611, Until Amelia 05/29/16 at 1229, Pain, Mild Pain, Maximum dose of acetaminophen is 4000 mg from all sources in 24 hours., Routine aspirin chewable tablet (CANCELED) ONCE PRN, Starting on Thu05/28/16 at 1431, Until Thu05/28/16 at 1550, Intra-Operative (Intra-Procedure), Routine 1431 (Given - Provider: Elisa Mobley RN) dextrose 50% injection 25-50 mL(Linked Group 2) 25-50 mL (12.5-25 g), Intravenous, EVERY 1 HOUR PRN, Starting on Thu05/28/16 at 1746, Until Amelia 05/29/16 at 1229, Low blood sugar, For BG 50-70: 120 [...] 25 mg, Oral, NIGHTLY PRN, Starting on Thu05/28/16 at 1746, Until Amelia 05/29/16 at 1229, Sleep, Allergies, Routine fentaNYL 50 mcg/mL multi-dose injection (CANCELED) ONCE PRN, Starting on Thu05/28/16 at 1440, Until Thu05/28/16 at 1550, Cath (Intra-Procedure), Routine 1441 (Given - Provider: Elisa Mobley RN) glucagon (human recombinant) injection 1 mg(Linked Group 2) 1 mg, Intramuscular, EVERY 1 HOUR PRN, Low blood sugar, Starting on Thu05/28/16 at 1746, Until Amelia 05/29/16 at 1229, For BG 50-70: 120 mL Juice or [...] for the duration of the active insulin. heparin (porcine) injection (CANCELED) ONCE PRN, Starting on Thu05/28/16 at 1403, Until Thu05/28/16 at 1550, Cath (Intra-Procedure), Routine 1403 (Given - Provider: Elisa Mobley RN)1429 (Given - Provider: Elisa Mobley RN) iohexol (OMNIPAQUE) 350 mg/mL solution (CANCELED) ONCE PRN, Starting on Thu05/28/16 at 1547, Until Thu05/28/16 at 1550, Cath (Intra-Procedure), Routine 1547 (Given - Provider: Joanne Fortune MD) lidocaine (XYLOCAINE) 10 mg/mL (1 %) injection (CANCELED) ONCE PRN, Starting on Thu05/28/16 at 1348, Until Thu05/28/16 at 1550, Cath (Intra-Procedure), Routine 1348 (Given - Provider: Marshall Chopra V - Comment: right radial) nitroGLYcerin (NITROSTAT) SL tablet 0.4 mg 0.4 mg, Sublingual, EVERY 5 MIN PRN, Starting on Thu05/28/16 at 1612, Until Amelia 05/29/16 at 1229, Chest pain, May repeat every 5 minutes for a total of three doses. Notify provider if chest pain not relieved with nitroglycerin. Do not administer nitroglycerin if the patinet has received or taken phosphodiesterase (PDE-5) inhibitors such as sildenafil, tadalafil or vardenafil within the last 24 to 72 hours., Recovery (Recovery-Hospital Unit), Routine 0029 (Given - Provider: Frannie Timmons RN) nitroGLYcerin 100 mcg/mL intracoronary dilution (CANCELED) ONCE PRN, Starting on Thu05/28/16 at 1357, Until Thu05/28/16 at 1550, Cath (Intra-Procedure), Routine 1357 (Given - Provider: Joanne Fortune MD)1430 (Given - Provider: Forrest Oconnor MD)1542 (Given - Provider: Forrest Oconnor MD) ondansetron (ZOFRAN) injection 4 mg 4 mg, Intravenous, EVERY 8 HOURS PRN, Starting on Amelia 05/29/16 at 0049, Until Amelia 05/29/16 at 1229, Nausea 0100 (Given - Provider: Frannie Timmons RN) ticagrelor (BRILINTA) tablet (CANCELED) ONCE PRN, Starting on Thu05/28/16 at 1433, Until Thu05/28/16 at 1746, Cath (Intra-Procedure), Routine 1433 (Given - Provider: Elisa Mobley RN) verapamil (ISOPTIN) injection (CANCELED) ONCE PRN, Starting on Thu05/28/16 at 1357, Until Thu05/28/16 at 1550, Administer over 2 Minutes, Cath (Intra-Procedure) 1357 (Given - Provider: Joanne Fortuen MD) Linked Groups Order Group 1: POCT Fingerstick Glucose (CANCELED) Routine, 4 TIMES DAILY BEFORE MEALS & AT BEDTIME, First occurrence on Thu05/28/16 at 2200, Until Specified, Consider choosing FOUR TIMES A DAY BEFORE MEALS AND AT BEDTIME as frequency for: Patients who have a good hypoglycemia awareness And insulin lispro (humaLOG) VIAL injection 1-4 UnitsJump to med 1-4 Units, Subcutaneous, 3 TIMES DAILY BEFORE MEALS, First dose on Thu05/28/16 at 1815, Until Discontinued, CORRECTION BOLUS Sensitive to insulin [...] and resume prior schedule., Routine Group 2: dextrose 50% injection 25-50 mLJump to med 25-50 mL (12.5-25 g), Intravenous, EVERY 1 HOUR PRN, Starting on Thu05/28/16 at 1746, Until Amelia 05/29/16 at 1229, Low blood sugar, For BG 50-70: 120 [...] HOUR PRN, Low blood sugar, Starting on Thu05/28/16 at 1746, Until Amelia 05/29/16 at 1229, For BG 50-70: 120 mL Juice or [...]
--- OUTSIDE RECORDS SUMMARY | 2024-05-02 14:25 | XMS_ITS | Encounter Summary ---
Author Organization [facility] Address [facility] [place] [address] Care Team Providers Care Payroll Administrative Assistant Name Role Phone Unavailable Primary Care Provider Unavailabl e Reason for Visit * Reason Comments Other burning in the throa t,happened since december,eating pudding one day and tasted funny,metaly taste spit it out and burning since then * Consultation (Routine) - Closed Specialty Diagnoses / Procedures Referred By Vanesa soto Referred To Contact Otolaryngology Diagnoses Burning in throat Procedures Requesting 2nd opinion. Was seen in emergency room and local ent. Tang Laurent MD [address] [place] [id number] [facility] [address] [place] [phone] Referral ID Status Reason Start Date Expiration Date V isits Requested Visits Authorized [id number] Closed Consult, Test & Treat Connection [facility] PCP Updated and/or Approved 11/22/2015 11/21/2016 1 1 Encounter Details Date Type Department Care Team (Late st Contact Info) Description 04/17/2016 10:00 AM EDT Office [place] [address] Enmanuel Giordano III, MD [facility] [place] [address] Burning sensation of throat Social History Tobacco Use Types Packs/Day Years [...] Sign Reading Time Taken Comments Blood Pressure 135/56 04/17/2016 9:44 AM EDT Pulse 65 04/17/2016 9:44 AM EDT Temperature - - Respiratory Rate 18 04/17/2016 9:44 AM EDT Oxygen Saturation 99% 04/17/2016 9:44 AM EDT Inhaled Oxygen Concentration - - Weight 62.6 kg (137 lb 14.4 oz) 04/17/2016 9:44 AM EDT Height - - Body Mass Index 22.26 06/11/2013 1:10 AM EST documented in this encounter Progress Notes * Enmanuel Giordano III, MD - 04/17/2016 10:00 AM EDT Lou Mo is a 70 y.o. female seen at the request of Tang Laurent for the evaluation of burning throat. The patient is complaining of chronic sore throat , which has been present for three months, and which began after she ate some bad pudding. She describes a nearly constant burning sensation, with no known exacerbating factors. The burning is generalized, not localized to any particular spot. She denies hemoptysis or other worrisome symptomatology. She has never been a smoker. She admits to being under some stress recently, and her diabetes control has been erratic. She knows shehas a thyroid mass which is watched by her surgeon in her home town of [place], [place]. Review of Systems: A complete review of constitutional, eyes, cardiovascular, respiratory, GI, , musculo-skeletal, skin, endocrine, psychiatric, hematologic, lymphatic and immunologic systems is completed and is as noted in the HPI. All other systems are otherwise negative. Examination shows the following: GENERAL: Well developed, well appearing, no acute distress. Vitals reviewed. HEAD/FACE/EYES: Normocephalic with no gross deformity. Extraocular movements intact. EARS: Normal exam of the external ear, ear canal, and middle ear bilaterally. NOSE: Normal external nasal exam. Septum midline. Turbinates are normal. SALIVARY: Parotid and submandibular glands are normal to inspection and palpation. ORAL CAVITY: Normal exam of oral tongue Normal mucosa without lesion Floor of mouth is soft. Dentition good repair OROPHARYNX: Normal tonsils. Normal soft palate and uvula. Posterior pharyngeal wall normal. LARYNX: Vocal cords normal. Vocal mobility normal. No mucosal lesions noted. NECK: No asymmetry on inspection No adenopathy. Normal thyroid. RESPIRATORY: Normal voice. No stridor. Normal respirations. CV: Normal carotid pulses. SKIN: Normal skin survey of the head and neck region. MUSCULOSKELETAL: Normal neck range of motion. No trismus. NEURO/PSYCH: Normal affect. Alert and oriented x 3. Responds appropriately to questions. CN II-XII grossly intact. PROCEDURES: Flexible Fiberoptic Laryngoscopy: Topical anesthetic and decongestant were applied to the nasal cavity. The flexible scope was passedto the level of the cords without difficulty. The patient tolerated the procedure well without any complications. Nasal Cavity: Normal Nasopharynx: Normal Oropharynx: Normal Larynx: Normal. Normal vocal cord mobility and morphology. Hypopharynx: Normal IMPRESSION: I do not find any mucosal lesions or other worrisome finding. I believe the burning maybe related to her DM, and have advised a trial of Biotene. She will follow up regarding the thyroidwith her surgeon, and we will see her again only as needed. documented in this encounter Plan of Treatment Upcoming Encounters Date Type Department Care Team (Late st Contact Info) Description 07/06/2024 1:30 PM EST Office Visit Cardiology at [address] [phone] Delta Reyes MD [facility] [place] [address] documented as of this encounter Visit Diagnoses Diagnosis Burning sensation of throat Throat pain documented in this encounter
--- OUTSIDE RECORDS SUMMARY | 2024-05-02 14:25 | XMS_ITS | Encounter Summary ---
Author Organization [facility] [place] [id number] Care Team Providers Care Wig Comber Name Role Phone Tang Ling MD Primary Care Provider Reason for Visit * Auth/Cert Specialty Diagnoses / Procedures Referred By Contsusana t Referred To Contact Diagnoses Unstable angina [place] NSTEMI Procedures CARDIAC CATHETERIZATION Referral ID Status Reason Start Date Expiration Date Visits Re quested Visits Authorized [id number] 1 1 Encounter Details Date Type Department Care Team (Latest Contact Info) Description 07/04/2016 6:38 PM EST - 07/06/2016 1:06 PM EST Hospital Encounter Inter[place] [id number] Gideon Rodriguez MD [facility] [place] [address] Daniel Alberts MD [facility] [place] [address] Ischemic chest pain Discharge Disposition: Home Social History Tobacco Use [...] Lou Mo Patient Age: 70 y.o. Language: Tajik Race: White Ethnicity: Not nor Admit date: 07/04/2016 Discharge date and time: 07/06/16 Attending Physician: Daniel Alberts MD Discharge Physician: Dr. Alberts Follow-up Recommendations for Providers: Chest pain, RI ruled out, s/p cardiac cath 07/05/16, medical management at this time UTI, she was started on Cipro for 10 days, please repeat U/A in the future Inpatient Provider Contact Information: Cardiology Clinic can be reached at [phone] Discharge Diagnoses (Hospital Problems) and Secondary Diagnoses [...] age of 60 who came to the [facility] for the chest pain/ angina seen and [...] the exertional chest pain. She visited the [facility] 2 times this week for the chest pains. Initially she went to the [facility] for chest pain on Thursday of this [...] start the heparin drip and transferred to [facility] for the cath given possible Unstable angina. [...] chest pain but has mild back pain 09/12. ?? On arrival at the OSH vitals- 113/53, 74,16, 95% on RA and chest pain 12/10. OSH medications- aspirin 324, heparin drip, nitro [...] Hospital Course: On admission to [facility], the patient had no complaints of chest pain or shortness of breath. Telemetry was attached which showed normal sinus rhythm. Heparin drip was infusing. [facility] records/transfer records were reviewed. Baseline labs were checked and/or drawn. Chest Pain, RI ruled out Given the patient's risk factors, ECG changes, positive biomarkers, it was decided to proceed with coronary angiography. The patient went to the cardiac supervisor laboratory for a diagnostic cath which showed noPCI [...] appointments: During 8am-5pm Thursday through Thursday call [phone] to speak with a nurse in the cardiology clinic All other times call [phone] and ask to speak to the mechanical lead statistical consultant. Return to work: One week Driving: No driving for 48 hours after catheterization. Follow up Appointments: PCP Tang Ling MD [phone] to see you in a week. Please set a date and time that will work for you. [employer] Dr. Mabry to see you in 4-6 weeks from now in [place], [place]. Please call [phone] to set date and time that will [...] appointments: During 8am-5pm Thursday through Thursday call [phone] to speak with a nurse in the cardiology clinic All other times call [phone] and ask to speak to the mechanical lead statistical consultant. Return to work: One week Driving: No driving for 48 hours after catheterization. Follow up Appointments: PCP Tang Ling MD [phone] to see you in a week. Please set a date and time that will work for you. [employer] Dr. Mabry to see you in 4-6 weeks from now in [place], [place]. 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 Lab Comments: Recent Labs 07/06/16 0515 07/05/168 07/04/16 185 WBC 6.2 7.8 8.4 HGB 11.3* 11.8 [...] Stable Plan: 1. Chest pain at rest, RI ruled out, s/p cardiac cath and no changes seen Continue telemetry monitoring Home today Consider starting norvasc as an out patient 2. HTN BP 135/56 Continue above medications Monitor trends 3. Dsylipidemia Continue statin Check lipids and LFTs 4. UTI Cipro started Follow 5. Full Code Patient seen and discussed with Dr. Alberts. ANALI JULES 07/06/2016 Pager [phone] Associated attestation - Daniel Alberts MD - 07/06/2016 10:48 PM EST Cardiology Attending Addendum I shared this visit with ANALI Hope and guided the medical decision-making. More than 30 minutes were spent in [id number] contact with patient and with arranging discharge and coordinating follow-up. 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 [OCT Hold] bolus IV fluid Intravenous Once ??? [OCT [...] ??? [OCT Hold] heparin (porcine) Stopped (07/05/16 0918) PRN Meds:fentaNYL (PF), [OCT Hold] nitroGLYcerin, [OCT [...] Lab Comments: Recent Labs 07/05/16 0158 07/04/16 185 WBC 7.8 8.4 HGB 11.8 13.0 HCT 34.1* 37.9 PLATELET 124* 158 Recent Labs 07/04/16 185 INR 1.1 Recent Labs 07/05/16 0158 07/04/16 1851 NA 143 144 K 3.7 4.0 CL 103 102 CO2 26 29 BUN 17 14 CREATININE 0.85 0.97 Recent Labs 07/04/16 1851 AST 17 ALT 12 ALKPHOS 62 BILITOT 0.3 BILIDIR 0.1 Recent Labs 07/05/16 0158 07/04/16 1851 CALCIUM 8.9 9.4 MAGNESIUM 0.78 0.82 Recent Labs 07/05/16 0158 07/04/16 185 CK 58 68 TROPONINT <0.03 <0.03 Pertinent [...] with Dr. Alberts. ANALI JULES 07/05/2016 Pager [phone] Associated attestation - Daniel Alberts MD - 07/05/2016 10:08 PM EST Cardiology Attending Addendum I shared this visit with ANALI Hope and guided the medical decision- making. On coronary angiogram today, a proximal LAD stenosis was visualized but by IFR and FFR was not significant. Thus, will treat medically. Etiology of her chest/back pain is not clear though. * Jr Ball RN - 07/04/2016 7:49 PM EST Pt arrived to unit@ 1845. VSS. Denies CP/SOB. Heparin @800 units/hr, continuing from OSH. Sats in mid 90's on RA. Will cont to monitor. documented in this encounter H&P Notes * Martha Rubalcava MD - 07/04/2016 6:43 PM EST Cardiology Admission History and Physical Patient Name: Lou Mo Service: cardiology/EDGE STAINER MACHINE/PA Responsible Attending: PCP: Tang Ling MD PCP phone #: [phone] ID/Chief Complaint: Chest pains on and off [...] age of 60 who came to the [facility] for the chest pain/ angina seen and [...] the exertional chest pain. She visited the [facility] 2 times this week for the chest pains. Initially she went to the [facility] for chest pain on Thursday of this [...] start the heparin drip and transferred to [facility] for the cath given possible Unstable angina. [...] 74,16, 95% on RA and chest pain /10. OSH medications- aspirin 324, heparin drip, nitro [...] BUN 14 CREATININE 0.97 Recent Labs 07/04/16 1851 AST 17 [...] age of 60 who came to the [facility] for the chest pain/ unstable angina seen [...] Handling Outcome: Ongoing (Interventions Implemented as Appropriate) 07/05/16175007/05/16191907/05/162144 Musculoskeletal Interventions Muscle Strengthening -- -- activity/mobility [...] Intervention: Mutually Develop/Implement Acute Pain Management Plan 07/05/16209907/05/162144 Manage Acute Burn Pain Pain Management Interventions [...] (CPG) Outcome: Ongoing (Interventions Implemented as Appropriate) 07/05/162144 Pain, Acute Related Risk Factors (Acute Pain) procedure/treatment;infection Goal: Acceptable Pain Control/Comfort Level Patient will demonstrate the desired outcomes by discharge/transition of care. Outcome: Ongoing (Interventions Implemented as Appropriate) 07/05/165 Pain, Acute (Adult) Acceptable Pain Control/Comfort Level [...] resolved. Patient head slowly elevated. Went to supervisor laboratory with no interventions. Returned right groin dressing [...] -- * Plan of Care - Elizabeth iGordano RN - 07/04/2016 10:57 PM EST Problem: Patient Care Overview Goal: Plan of Care Review Outcome: Ongoing (Interventions Implemented as Appropriate) 07/04/16 6357 Coping/Psychosocial Plan Of Care Reviewed With patient [...] Intervention: Mutually Develop/Implement Acute Pain Management Plan 07/04/16 2253 Manage Acute Burn Pain Pain Management Interventions [...] Outcome: Ongoing (Interventions Implemented as Appropriate) 07/04/16 225 Pain, Acute (Adult) Acceptable Pain Control/Comfort Level achieves outcome documented in this encounter Plan of Treatment Upcoming Encounters Date Type Department Care Team (Late st Contact Info) Description 07/06/2024 1:30 PM EST Office Visit Cardiology at [address] [phone] Delta Reyes MD [facility] [place] [address] Scheduled Orders Name Type Priority Associated Diagnoses Orde r Schedule EKG 12 Lead ECG Routine Ischemic chest pain One Time for 1 Occurrences starting 07/05/2016 until 07/05/2016 documented as of this encounter Procedures Procedure Name Priority Date/Time Associated Diagnosis Comments SENIOR ACCOUNTANT CPA SCAN 07/07/2016 12:00 AM EST SENIOR ACCOUNTANT CPA SCAN 07/07/2016 12:00 AM EST ECG SCAN [...] 07/05/20 16 1:58 AM EST CARDIAC ENZYMES ([facility]) Routine 07/05/2016 1:58 AM EST APTT STAT [...] 6:51 PM EST DIFFERENTIAL, AUTOMATED STAT 07/04/20 6:51 PM EST CARDIAC ENZYMES ([facility]) STAT [...] in this encounter Results * SCAN DOC: SENIOR ACCOUNTANT CPA (07/07/2016 12:00 AM EST) Anatomical Region Laterality Modality Other Scanning Provider MEDIA MGR SCAN EXT O RDR/RSLT * SCAN DOC: SENIOR ACCOUNTANT CPA (07/07/2016 12:00 AM EST) Anatomical Region Laterality Modality Other Scanning Provider MEDIA MGR SCAN EXT O RDR/RSLT * SCAN DOC: ECG (07/07/2016 12:00 AM EST) Scanning Provider MEDIA MGR SCAN EXT O RDR/RSLT * POCT Glucose (07/06/2016 12:45 PM EST) Glucose, POC 139 65 - 199 mg/dL [facility] Comment: Supplemental ranges: <140 mg/dL before meals <180 mg/dL all other times of the day Blood specimen (specimen) 07/06/2016 12:45 PM EST 07/06/2016 12:45 PM EST Daniel Alberts MD POINT OF CARE TEST O RDERABLES Performing Organization Address City/[facility]/ZIP Co de Phone Number [facility] [place] [address] * POCT Glucose (07/06/2016 7:43 AM EST) Glucose, POC 107 65 - 199 mg/dL [facility] Comment: Supplemental ranges: <140 mg/dL before meals <180 mg/dL all other times of the day Blood specimen (specimen) 07/06/2016 7:43 AM EST 07/06/2016 7:43 AM EST Daniel Alberts MD POINT OF CARE TEST O RDERABLES Performing Organization Address City/[facility]/ZIP Co de Phone Number [facility] [place] [address] * Differential, Automated (07/06/2016 5:15 AM EST) Neutrophil % 64.8 % [facility] Neutrophil Absolute 4.04 1.70 - 6.10 x10(3)/[facility] LABORAT[facility] Lymph % 22.5 % [facility] Lymphocytes Abs 1.4 0.9 - 3.2 x10(3)/[facility] LABORATORY Monocyte % 9.0 % [facility] Monocyte Abs 0.6 0.3 - 0.9 x10(3)/[facility] LABORATORY Eos % 2.9 % [facility] Eosinophils Abs 0.2 0.0 - 0.4 x10(3)/[facility] LABORATORY Basophil % 0.5 % [facility] Baso Absolute 0.0 0.0 - 0.1 x10(3)/[facility] LABORATORY Immature Gran % 0.30 % [facility] Comment: Immature granulocytes(IG's)percentage and absolute count will include metamyelocytes, myelocytes, and promyelocytes. Blood smears from CBCs yielding IG's will be scanned manually for concordance. If this scan disagrees with the automated IG or if promyelocytes are noted, a manual differential will be performed. Immature Gran Absolute 0.02 0.00 - 0.04 x10(3)/[facility] LABORATORY Blood specimen (specimen) 07/06/2016 5:15 AM EST 07/06/2016 5:46 AM EST Narrative Resulting Agency Comment Spec In Lab Martha Rubalcava MD HEMATOLOGY ORDER JOSÉ [facility] [place] [address] * (ABNORMAL) Hemogram (07/06/2016 5:15 AM EST) White Blood Cell 6.2 4.0 - 9.5 x10(3)/ L [facility] Red Blood [...] HOSPITAL LABORATORY Platelet 107(L) 145 - 357 x10(3)/ L [facility] RDW Standard Deviation 41.1 37.0 - 46.0 fL [facility] RDW coefficient of variation 12.7 11.5 - 14.1 % [facility] Mean Platelet Volume 10.3 7.6 - 12.9 [facility] LABORATORY NRBC% auto 0.0 % [facility] NRBC Absolute 0.000 0.000 - 0.000 x10(3)/mc L [facility] Blood specimen (specimen) 07/06/2016 5:15 AM EST 07/06/2016 5:46 AM EST Narrative Resulting Agency Comment Spec In Lab Martha Rubalcava MD HEMATOLOGY ORDER JOSÉ Performing Organization Address [place] [facility]/ZIP Co de Phone Number [facility] [place] [address] * POCT Glucose (07/05/2016 7:30 PM EST) Glucose, POC 181 65 - 199 mg/dL [facility] Comment: Supplemental ranges: <140 mg/dL before meals <180 mg/dL all other times of the day Blood specimen (specimen) 07/05/2016 7:30 PM EST 07/05/2016 7:30 PM EST Daniel Alberts MD POINT OF CARE TEST O RDERABLES Performing Organization Address [facility] Co de Phone Number [facility] [place] [address] * (ABNORMAL) Urine culture (07/05/2016 5:10 PM [...] - GENER AL ORDERABLES Performing Organization Address [facility]/ZIP Co de Phone Number [facility] [place] [address] * Urine Hold (07/05/2016 5:10 PM EST) Hold, Urine Sample in lab. [facility] Urine specimen (specimen) Urine / Unknown 07/05/2016 5:10 PM EST 07/05/2016 5:20 PM EST Daniel Alberts MD URINE ORDERABLES Performing Organization Address [facility] Co de Phone Number [facility] [place] [address] * (ABNORMAL) Urinalysis with reflex Culture (07/05/2016 [...] HOSPITAL LABORATORY Leukocytes, Urine Dipstick Large(A) Negative [facility] Appearance, Urine Dipstick Clear Clear [facility] Specific [place] Urine Automated 1.023 1.002 - 1.030 [facility] [...] Alberts MD URINE ORDERABLES Performing Organization Address [facility]/ZIP Co de Phone Number [facility] [place] [address] * POCT Glucose (07/05/2016 4:27 PM EST) Glucose, POC 128 65 - 199 mg/dL [facility] Comment: Supplemental ranges: <140 mg/dL before meals <180 mg/dL all other times of the day Blood specimen (specimen) 07/05/2016 4:27 PM EST 07/05/2016 4:27 PM EST Daniel Alberts MD POINT OF CARE TEST O RDERABLES Performing Organization Address City/[facility]/ZIP Co de Phone Number [facility] [place] [address] * ECHO COMPLETE (07/05/2016 3:30 PM EST) EF 65 HEARTLAB SYSTEM Anatomical Region Laterality Modality Other 07/05/2016 Narrative 07/05/2016 5:13 PM EST Procedure: ?Transthoracic Echocardiogram Patient: ?FLOYD Smith ? (Age): 1945(70y) Med Rec#: ? [id number] ?Sex: ?F ? Site Loc: ? [facility] ?Ht / Wt: ??155(cm)/63.01(k Pt. Loc: ?Adult Floor ? BSA: ?1.62 Study Date: ?? 07/05/2016 ?Pt. Type: Inpatient Tape: ? Referring: Khadar Yates Referring: AUGUSTUS OLIVAS P Reading: Daniel Alberts ([id number]) Tensile Tester: Azalea Kincaid Diagnosis: *ICD-10-PCS Angina pectoris, unspecified (I20.9) CPT Codes: *Echo Full (74145) *Spectral Doppler (79343) *Color Doppler (90575) BP: ? 92/47 SUMMARY: 1. The left [...] E-wave Vmax ?0.9 ?m/sec ? MV deceleration [id number] ?msec ? MV A-wave Vmax ?1 ?m/sec [...] ? Mid-Inferior ?Normal ? Mid-Inferoseptal ?Normal ? [place]-Septal ? Normal ? [place]-Anterior ? Normal ? [place]-Lateral ?Normal ? [place]-Inferior ? Normal ? [place]-Tip ?Normal ? This report has been electronically signed by: Daniel Alberts MD ? 07/05/2016 17:12:39 Images reviewed and interpretation verified [facility] Cardiac Ultrasound Laboratory Procedure Note Daniel Alberts MD - 07/05/2016 Procedure: Transthoracic Echocardiogram Patient: FLOYD Smith DOB(Age): 1945(70y) Med Rec#: [id number] Sex: F Site Loc: [facility] Ht / Wt: 155(cm)/63.01(k Pt. Loc: Adult Floor BSA: 1.62 Study Date: 07/05/2016 Pt. Type: Inpatient Tape: Referring: Khadar Yates Referring: AUGUSTUS OLIVAS P Reading: Daniel Alberts ([id number]) Tensile Tester: Azalea Kincaid Diagnosis: *ICD-10-PCS Angina pectoris, unspecified (I20.9) CPT Codes: *Echo Full (89131) *Spectral Doppler (53201) *Color Doppler (87640) BP: 92/47 SUMMARY: 1. The left ventricular [...] MV E-wave Vmax 0.9 m/sec MV deceleration [id number] msec MV A-wave Vmax 1 m/sec MV [...] Normal Mid-Posterolateral Normal Mid-Inferior Normal Mid-Inferoseptal Normal [place]-Septal Normal [place]-Anterior Normal [place]-Lateral Normal [place]-Inferior Normal [place]-Tip Normal This report has been electronically signed by: Daniel Alberts MD 07/05/2016 17:12:39 Images reviewed and interpretation verified [facility] Cardiac Ultrasound [facility] Martha Rubalcava MD ECHO [...] CARE TEST O RDERABLES Performing Organization Address City/State/[facility] Co de Phone Number [facility] [place] [address] * CARDIAC CATHETERIZATION (07/05/2016 10:53 AM EST) Anatomical Region Laterality Modality Other Narrative 07/05/2016 11:03 AM EST ?[facility] ? Cardiac Catheterization/Intervention Report ? Patient Name: Kevin Mosuzy Smith. ? Procedure Date: 07/05/2016 ? A #: [id number] ? Primary Physician: Karena, Jamal T ? Case #: [id number] ? File Name: [id number] ? Catheterization Order Number: [id number] ? [facility] ? Final Report [place], [place] ? Patient Name: ? Lou Mo ? ID#: ?[id number] ? : ?1945 ? Procedure Date: ? July 05, 2016 ? Case #: ? [id number] ? Room: ? 5 ? Case Physician: ? Jamal Vital M.D. ?Start: ?09:52 ?Fellow: ? Will Bob M.D. ?Admission: ??07/05/2016 ? Referring Physician: ??Tang Ling M.D. ? Procedures: ?* Coronary Angiography ?* Left Heart Catheterization ?* Coronary Flow Hawi Measurement (FFR) ?* Coronary Instantaneous Wave-Free Ratio [...] presented with: stable angina (w/i 42 days). [place] ?Cardiovascular Society angina class was IV. This [...] present for the entire procedure. ?Dr. Jamal T Karena, M.D. performed the coronary angiography, left heart ?catheterization, FFR # coronary, IFR-coronary and access site angiography. ? Jamal Vital M.D. ? Electronically Signed by: Jamal Vital M.D. ? Report Finalized: 07/05/2016 ??10:57 ? Report Last Ammended: 07/07/2016 ??07:22 ? Procedure Note Jamal Vital MD - 07/07/2016 [facility] Cardiac Catheterization/Intervention Report Patient Name: Gt Moe Chad Procedure Date: 07/05/2016 A #: [id number] Primary Physician: Jamal Vital Case #: [id number] File Name: [id number] Catheterization Order Number: [id number] [facility] FinalReport Center [place], [place] Patient Name: Lou Mo ID#:[id number] :1945 Procedure Date: July 05, 2016 Case #: [id number] Room: 5 Case Physician: Jamal Vital M.D. Start: 09:52 Fellow: Will Bob M.D. Admission:07/05/2016 Referring Physician: Tang Ling M.D. Procedures: * Coronary Angiography * Left Heart Catheterization * Coronary Flow Hawi Measurement (FFR) * Coronary Instantaneous Wave-Free Ratio [...] presented with: stable angina (w/i 42 days). [place] Cardiovascular Society angina class was IV. This [...] a 6 Fr EBU 3.5 guiding catheter soraya Verrata wire. Wire delivery was successful. The [...] * POCT Glucose (07/05/2016 8:52 AM EST) [facility] Glucose, POC 109 65 - 199 mg/dL [facility] Comment: Supplemental ranges: <140 mg/dL before meals <180 mg/dL all other times of the day Blood specimen (specimen) 07/05/2016 8:52 AM EST 07/05/2016 8:52 AM EST Daniel Alberts MD POINT OF CARE TEST O RDERABLES [facility] [place] [address] * EKG 12 Lead (07/05/2016 7:21 AM EST) Pathologist [facility] Ventricular rate 72 BPM MUSE SYSTEM Atrial Rate 72 BPM MUSE SYSTEM P-R Interval 190 ms MUSE SYSTEM QRS Duration 82 ms MUSE SYSTEM Q-T Interval 390 ms MUSE SYSTEM QTC Calculated (Bezet) 427 ms MUSE SYSTEM Calculated P [place] 50 degrees MUSE SYSTEM Calculated R [place] -17 degrees MUSE SYSTEM Calculated T [place] 38 degrees MUSE SYSTEM INTERPRETATION Normal sinus rhythm Low voltage QRS Borderline ECG When compared with ECG of 04-JUL-2016 19:47, (unconfirmed) No significant change was found Confirmed by MD Berry Douglas ([id number]) on 07/05/2016 1:55:10 PM MUSE SYSTEM 07/05/2016 7:21 AM EST 07/05/2016 1:55 PM EST Martha Rubalcava MD ECG ORDERABLES Performing Organization Address City/[facility]/ZIP Co de Phone Number MUSE SYSTEM * (ABNORMAL) APTT (07/05/2016 7:09 AM EST) Partial Thromboplastin Time 88(H) 25 - 35 sec [facility] Comment: The recommended therapeutic range for full dose, unfractionated heparin at [facility] is 80 ? 114 seconds. The use of the anti-Xa (heparin) level rather than the PTT is recommended for monitoring anticoagulation intensity in critically ill patients receiving unfractionated heparin by continuous IV infusion. Blood specimen (specimen) 07/05/2016 7:09 AM EST 07/05/2016 7:20 AM EST Narrative Resulting Agency Comment Spec In Lab Daniel Alberts MD HEMATOLOGY ORDERABLE S Performing Organization Address [facility] Co de Phone Number [facility] [place] [address] * Cardiac Enzymes (07/05/2016 1:58 AM EST) Troponin-T <0.03 <=0.03 ng/mL [facility] Comment: 0.03 ng/mL: Represents the 99th percentile upper reference limit for normals. >0.03 ng/mL: Elevated cardiac troponin T level indicative of myocardial damage. Diagnosis of acute, evolving or recent RI requires a typical rise and gradual fall [...] consensus document of the Joint Society of Cardiology/[employer] College of Cardiology Committee for the redefinition of myocardial infarction. ??Journal of the [employer] College of Cardiology 2000; 36: 959-969] Creatine Kinase 58 0 - 160 unit/L [facility] Blood specimen (specimen) Venous Draw / Unknown 07/05/2016 1:58 AM EST 07/05/2016 2:17 AM EST Narrative Resulting Agency Comment Spec In Lab Martha Rubalcava MD CHEMISTRY ORDERA BLES Performing Organization Address City/[facility]/ZIP Co de Phone Number [facility] [place] [address] * Differential, Automated (07/05/2016 1:58 AM EST) Neutrophil % 58.6 % [facility] Neutrophil Absolute 4.55 1.70 - 6.10 x10(3)/[facility] Lymph % 30.6 % [facility] Lymphocytes Abs 2.4 0.9 - 3.2 x10(3)/[facility] Monocyte % 7.7 % [facility] Monocyte Abs 0.6 0.3 - 0.9 x10(3)/[facility] Eos % 2.6 % [facility] Eosinophils Abs 0.2 0.0 - 0.4 x10(3)/[facility] Basophil % 0.4 % [facility] Baso Absolute 0.0 0.0 - 0.1 x10(3)/[facility] Immature Gran % 0.10 % [facility] Comment: Immature granulocytes(IG's)percentage and absolute count will include metamyelocytes, myelocytes, and promyelocytes. Blood smears from CBCs yielding IG's will be scanned manually for concordance. If this scan disagrees with the automated IG or if promyelocytes are noted, a manual differential will be performed. Immature Gran Absolute 0.01 0.00 - 0.04 x10(3)/[facility] LABORATORY Blood specimen (specimen) 07/05/2016 1:58 AM EST 07/05/2016 2:17 AM EST Narrative Resulting Agency Comment Spec In Lab Martha Rubalcava MD HEMATOLOGY ORDER JOSÉ Performing Organization Address City/[facility]/ZIP Co de Phone Number [facility] [place] [address] * (ABNORMAL) Hemogram (07/05/2016 1:58 AM EST) [facility] White Blood Cell 7.8 4.0 - 9.5 x10(3)/ L [facility] Red Blood Cell 3.92(L) 4.00 - 5.21 x10(6)/mc L [facility] Hemoglobin 11.8 11.7 - 15.5 gm/dL [...] Platelet 124(L) 145 - 357 x10(3)/ L [facility] RDW Standard Deviation 39.9 37.0 - 46.0 [facility] LABORATORY RDW coefficient of variation 12.7 11.5 - 14.1 % [facility] Mean Platelet Volume 10.3 7.6 - 12.9 fL [facility] NRBC% auto 0.0 % [facility] LABORATORY NRBC Absolute 0.000 0.000 - 0.000 x10(3)/[facility] LABORATORY Blood specimen (specimen) 07/05/2016 1:58 AM EST 07/05/2016 2:17 AM EST Narrative Resulting Agency Comment Spec In Lab Martha Rubalcava MD HEMATOLOGY ORDER JOSÉ [facility] [place] [address] * (ABNORMAL) APTT (07/05/2016 1:58 AM EST) [facility] Partial Thromboplastin Time 148(Criti rashid) 25 - 35 sec [facility] Comment: Called by: walt, Read back by: vitaliy spangler, Date/Time:07/05/16 02:37. The recommended therapeutic range for full dose, unfractionated heparin at [facility] is 80 ? 114 seconds. The use of the anti-Xa (heparin) level rather than the PTT is recommended for monitoring anticoagulation intensity in critically ill patients receiving unfractionated heparin by continuous IV infusion. Blood specimen (specimen) 07/05/2016 1:58 AM EST 07/05/2016 2:17 AM EST Narrative Resulting Agency Comment Spec In Lab Martha Rubalcava MD HEMATOLOGY ORDER JOSÉ Performing Organization Address [facility]/ZIP Co de Phone Number [facility] [place] [address] * Magnesium (07/05/2016 1:58 AM EST) Magnesium 0.78 0.69 - 1.07 mmol/L [facility] Blood specimen (specimen) 07/05/2016 1:58 AM EST 07/05/2016 2:17 AM EST Narrative Resulting Agency Comment Spec In Lab Martha Rubalcava MD CHEMISTRY ORDERA BLES Performing Organization Address [facility] Co de Phone Number [facility] [place] [address] * Basic Metabolic Panel (non-fasting) (07/05/2016 1:58 AM EST) Glucose 163 65 - 199 mg/dL [facility] Comment:Diabetes: >=200 mg/d L plus symptoms Blood Urea Nitrogen 17 8 - 18 mg/dL [facility] Creatinine 0.85 0.70 - 1.20 mg/dL [facility] Comment: Please note that the pediatric reference intervals supplied above were not validated at [facility]. Results from pediatric patients should be interpreted [...] LABORATORY Est Glomerular Filtration Rate >60 >=60 [facility] LABORATORY Comment: This estimated GFR [...] the following links into your internet browser. [email or web address] Blood specimen (specimen) 07/05/2016 1:58 AM EST 07/05/2016 2:17 AM EST Narrative Resulting Agency Comment Spec In Lab Martha Rubalcava MD CHEMISTRY ORDERA [facility] Organization Address City/State/ZIP Co de Phone Number [facility] [place] [address] * XR Chest PA & Lateral (Generic) [...] (Bezet) 424 ms MUSE SYSTEM Calculated P [place] 27 degrees MUSE SYSTEM Calculated R [place] -15 degrees MUSE SYSTEM Calculated T [place] 33 degrees MUSE SYSTEM INTERPRETATION Normal sinus rhythm with 1st degree A-V block Otherwise normal ECG Confirmed by MD Jamal, Josué ([id number]) on 07/05/2016 1:53:43 PM MUSE SYSTEM 07/04/2016 7:47 PM EST 07/05/2016 1:53 PM EST Martha Rubalcava MD ECG ORDERABLES Performing Organization Address [facility] Co de Phone Number MUSE SYSTEM * POCT Glucose (07/04/2016 7:37 PM EST) Glucose, POC 111 65 - 199 mg/dL [facility]OR[facility] Comment: Supplemental ranges: <140 mg/dL before meals <180 mg/dL all other times of the day Blood specimen (specimen) 07/04/2016 7:37 PM EST 07/04/2016 7:37 PM EST Gideon Rodriguez MD POINT OF CARE TEST O RDERABLES Performing Organization Address City/State/[facility] Co de Phone Number [facility] [place] [address] * Magnesium (07/04/2016 6:51 PM EST) Magnesium 0.82 0.69 - 1.07 mmol/L [facility] LABOR[facility] Blood specimen (specimen) Venous Draw / Unknown 07/04/2016 6:51 PM EST 07/04/2016 7:17 PM EST Narrative Resulting Agency Comment Spec In Lab Martha Rubalcava MD CHEMISTRY ORDERA BLES Performing Organization Address City/[facility]/ZIP Co de Phone Number [facility] [place] [address] * Lipid Panel (07/04/2016 6:51 PM EST) Cholesterol, Total 119 <=199 mg/dL [facility] Comment: Recommendations of the NCEP Adult Treatment Panel for the following risk cutoff thresholds for the [place] population: Desirable: <200 mg/dL Borderline High: 200-239 mg/dL High: > or = 240 mg/dL Triglyceride 83 <=149 mg/dL [facility] Comment: Reference Range: Normal triglycerides: ??<150 mg/dL Borderline high: ??150-199 mg/dL High: ??200-499 mg/dL Very high: ??>sl=860 mg/dL LUIS F 2001; 285(19):4960-8724 HDL Cholesterol 46 >=40 mg/dL [facility] LABORATORY Comment: Reference range: ??Low HDL: ?? < 40 mg/dL ??Normal: ?40-60 mg/dL ??Desirable: > 60 mg/dL LUIS F 2001; 285(19):0751-1892 LDL Cholesterol 56 <=99 mg/dL [facility] LABORATORY Comment: Reference range: ?? Optimal: ?<100 mg/dL ?? Near Optimal/Above Optimal: ?? 100-129 mg/dL ?? Borderline high: ?130-159 mg/dL ?? High: ? 160-189 mg/dL ?? Very high: ?>fd=079 mg/dL LUIS F 2001: 285(19):1645-8134 Cholesterol/HDL Ratio 2.6 ratio [facility] Comment: A Cholesterol to HDL ratio below 4:1 is desirable. ??Studies suggest that increased CAD risk occurs at ratios above 5 for females and above 6 for men. ? [place] Heart Association ??(http://www.americanheart.org) ? Maura Int Med, 1994; 121:641 ? AM J Med, 1998; 105(1A):48S Blood specimen (specimen) Venous Draw / Unknown 07/04/2016 6:51 PM EST 07/04/2016 7:17 PM EST Narrative Resulting Agency Comment Spec In Lab Martha Rubalcava MD CHEMISTRY ORDERA BLES Performing Organization Address City/[facility]/ZIP Co de Phone Number [facility] [place] [address] * TSH (07/04/2016 6:51 PM EST) Thyroid Stimulating Hormone 0.98 0.27 - 4.20 mcIU/mL [facility] LABORATORY Blood specimen (specimen) Venous Draw / Unknown 07/04/2016 6:51 PM EST 07/04/2016 7:17 PM EST Narrative Resulting Agency Comment Spec In Lab Martha Rubalcava MD CHEMISTRY ORDERA BLES Performing Organization Address City/[facility]/ZIP Co de Phone Number [facility] [place] [address] * (ABNORMAL) Comprehensive metabolic panel (non-fasting) (07/04/2016 6:51 PM EST) Glucose 111 65 - 199 mg/dL [facility] Comment:Diabetes: >=200 mg/d L plus symptoms Blood Urea Nitrogen 14 8 - 18 mg/dL [facility] Creatinine 0.97 0.70 - 1.20 mg/dL [facility] Comment: Please note that the pediatric reference intervals supplied above were not validated at [facility]. Results from pediatric patients should be interpreted [...] LABORATORY Est Glomerular Filtration Rate 57(L) >=60 [facility] LABORATORY Comment: This estimated GFR [...] the following links into your internet browser. [email or web address] Blood specimen (specimen) Venous Draw / Unknown 07/04/2016 6:51 PM EST 07/04/2016 7:17 PM EST Narrative Resulting Agency Comment Spec In Lab Martha Rubalcava MD CHEMISTRY ORDERA BLES [facility] [place] [address] * Differential, Automated (07/04/2016 6:51 PM EST) Neutrophil % 68.0 % [facility] LABORATORY Neutrophil Absolute 5.70 1.70 - 6.10 x10(3)/[facility] LABORATORY Lymph % 23.8 % [facility] LABORATORY Lymphocytes Abs 2.0 0.9 - 3.2 x10(3)/[facility] LABORATORY Monocyte % 6.1 % [facility] LABORATORY Monocyte Abs 0.5 0.3 - 0.9 x10(3)/[facility] LABORATORY Eos % 1.5 % [facility] LABORATORY Eosinophils Abs 0.1 0.0 - 0.4 x10(3)/[facility] LABORATORY Basophil % 0.4 % [facility] LABORATORY Baso Absolute 0.0 0.0 - 0.1 x10(3)/[facility] LABORATORY Immature Gran % 0.20 % [facility] LABORATORY Comment: Immature granulocytes(IG's)percentage and absolute count will include metamyelocytes, myelocytes, and promyelocytes. Blood smears from CBCs yielding IG's will be scanned manually for concordance. If this scan disagrees with the automated IG or if promyelocytes are noted, a manual differential will be performed. Immature Gran Absolute 0.02 0.00 - 0.04 x10(3)/[facility] LABORATORY Blood specimen (specimen) 07/04/2016 6:51 PM EST 07/04/2016 7:17 PM EST Narrative Resulting Agency Comment Spec In Lab Martha Rubalcava MD HEMATOLOGY ORDER JOSÉ Performing Organization Address City/[facility]/ZIP Co de Phone Number [facility] [place] [address] * Hemogram (07/04/2016 6:51 PM EST) White Blood Cell 8.4 4.0 - 9.5 x10(3)/[facility] LABORATORY Red Blood Cell 4.26 4.00 - 5.21 x10(6)/[facility] LABORATORY Hemoglobin 13.0 11.7 - 15.5 gm/dL [facility] LABORAT[facility] Hematocrit 37.9 35.7 - 45.8 % [facility] Mean Cell Volume 89.0 82.6 - 94.4 fL [facility] LABORAT[facility] Mean Cell Hemoglobin 30.5 27.1 - 32.0 [facility] LABORATORY Mean Cell Hemoglobin Concentration 34.3 31.7 - 35.0 gm/dL [facility] LABORATORY Platelet 158 145 - 357 x10(3)/[facility] LABORATORY RDW Standard Deviation 41.2 37.0 - 46.0 [facility] LABORATORY RDW coefficient of variation 12.7 11.5 - 14.1 % [facility] LABORAT[facility] Mean Platelet Volume 10.5 7.6 - 12.9 [facility] LABORATORY NRBC% auto 0.0 % [facility] LABORATORY NRBC Absolute 0.000 0.000 - 0.000 x10(3)/[facility] LABORATORY Blood specimen (specimen) 07/04/2016 6:51 PM EST 07/04/2016 7:17 PM EST Narrative Resulting Agency Comment Spec In Lab Martha Rubalcava MD HEMATOLOGY ORDER JOSÉ [facility] [place] [address] * Cardiac Enzymes (07/04/2016 6:51 PM EST) Troponin-T <0.03 <=0.03 ng/mL [facility] LAB[facility] Comment: 0.03 ng/mL: Represents the 99th percentile upper reference limit for normals. >0.03 ng/mL: Elevated cardiac troponin T level indicative of myocardial damage. Diagnosis of acute, evolving or recent RI requires a typical rise and gradual fall [...] consensus document of the Joint Society of Cardiology/[place] College of Cardiology Committee for the redefinition of myocardial infarction. ??Journal of the [place] College of Cardiology 2000; 36: 959-969] Creatine Kinase 68 0 - 160 unit/L [facility] LABORATORY Blood specimen (specimen) 07/04/2016 6:51 PM EST 07/04/2016 7:17 PM EST Narrative Resulting Agency Comment Spec In Lab Martha Rubalcava MD CHEMISTRY ORDERA BLES Performing Organization Address City/[facility]/ZIP Co de Phone Number [facility] [place] [address] * (ABNORMAL) pro-Brain Natriuretic Peptide (07/04/2016 6:51 PM EST) NT-proBNP 327(H) <=125 pg/mL [facility] LABORATORY Blood specimen (specimen) 07/04/2016 6:51 PM EST 07/04/2016 7:17 PM EST Narrative Resulting Agency Comment Spec In Lab Martha Rubalcava MD CHEMISTRY ORDERA BLES Performing Organization Address City/[facility]/ZIP Co de Phone Number [facility] [place] [address] * (ABNORMAL) APTT (07/04/2016 6:51 PM EST) Partial Thromboplastin Time 118(H) 25 - 35 sec [facility] LABOR[facility] Comment: The recommended therapeutic range for full dose, unfractionated heparin at [facility] is 80 ? 114 seconds. The use of the anti-Xa (heparin) level rather than the PTT is recommended for monitoring anticoagulation intensity in critically ill patients receiving unfractionated heparin by continuous IV infusion. Blood specimen (specimen) 07/04/2016 6:51 PM EST 07/04/2016 7:17 PM EST Narrative Resulting Agency Comment Spec In Lab Martha Rubalcava MD HEMATOLOGY ORDER JOSÉ Performing Organization Address [facility] de Phone Number [facility] [place] [address] * Prothrombin Time (07/04/2016 6:51 PM EST) [...] MD HEMATOLOGY ORDER JOSÉ Performing Organization Address [facility] Co de Phone Number [facility] [place] [address] documented in this encounter Visit Diagnoses Diagnosis Stress at home- Primary Unspecified family circumstance Ischemic chest pain Chest pain, unspecified Unstable angina Intermediate coronary syndrome Chest pain Chest pain, unspecified S/P angioplasty with stent Postsurgical percutaneous transluminal coronary angioplasty status documented in this encounter Administered Medications Inactive Administered Medications - up to 3 most recent administrations Medication Order MAR Action Action Date Dose Rate Site aspirin EC tablet 81 mg 81 mg, Oral, DAILY, First dose on Thu07/05/16 [...] Given 07/05/2016 9:08 AM EST 20 mg glucagon (human recombinant) injection 1 mg 1 mg, Intramuscular, EVERY 1 HOUR PRN, Low blood sugar, Starting on Thu07/04/16 at 2003, Until Thu07/06/16 at 1507, For BG 50-70: 120 mL [...] duration of the active insulin. heparin (porcine) 25,000 unit/500 mL (50 unit/mL) infusion 1 dose, Starting on Thu07/04/16 at 1843, Until Thu07/04/16 at 1859, JR BALL: cabinet override New Bag 07/04/2016 6:59 PM EST 800 Units heparin 25,000 units in dextrose 5% 500 mL infusion 0-5,000 Units/hr (0-100 mL/hr), Intravenous, CONTINUOUS, Starting on Thu07/04/16 at 2030, Until Thu07/05/16 at 2005, BEGIN infusion at 750 units [...] Indication: ACS (STEMI vs NSTEMI vs UA) Rate/Dose Change 07/05/2016 3:42 AM EST 550 Units/hr 11 mL/hr Rate/Dose Change 07/04/2016 8:23 PM EST 750 Units/hr 15 mL /hr insulin lispro (humaLOG) VIAL injection 1-4 Units [...] 6 HOURS PRN, Starting on Thu07/04/16 at 2003, Until 07/06/16 at 1507, Pain, Routine Given 07/05/2016 9:00 PM EST 2 mg Given 07/04/2016 8:33 PM EST 2 mg nitroGLYcerin (NITROSTAT) SL tablet 0.4 mg 0.4 mg, Sublingual, EVERY 5 MIN PRN, Starting on Thu07/04/16 at 2003, Until 07/06/16 at 1507, Chest pain, SL nitroglycerin may be repeated every 5 minutes as needed up to 3 doses, Routine Given 07/05/2016 7:30 AM EST 0.4 mg Given 07/05/2016 7:26 AM EST 0.4 mg potassium chloride (K-DUR/KLOR-CON) extended release tablet 40 mEq 40 mEq, Oral, ONCE, 1 dose, On 07/05/16 at 0600, 20 mEq tablet may be dissolved in water for administration, Routine Given 07/05/2016 6:30 AM EST 40 mEq rosuvastatin (CRESTOR) tablet 40 mg 40 mg, [...] Given 07/05/2016 9:00 AM EST 5 mLs sodium chloride 0.9% infusion 100 mL/hr, Intravenous, CONTINUOUS, Starting on 07/05/16 at 0800, Until 07/05/16 at 1045 New Bag 07/05/2016 7:46 AM EST 100 mL/hr 100 mL/hr sodium chloride 0.9% infusion 100 mL/hr, Intravenous, CONTINUOUS, Starting on [facility] 07/05/16 at 1115, Until [place] 07/06/16 at 0214, Recovery (Recovery-Hospital Unit) New Bag 07/05/2016 8:18 PM EST 100 mL/hr 100 mL /hr New Bag 07/05/2016 11:15 AM EST 100 mL/hr 100 mL/hr R ight Arm documented in this encounter Active and [...] Indication for (Active or Suspected): Urinary Tract/Pyelonephritis 2336 (Given - Provider: Elizabeth Giordano RN) 0610 [...] 0901 (Given - Provider: Joycelyn Combs RN) docusate [...] Procedural area)1149 (OCT Unhold - Provider: Admin Adt)2099 (Not Given [...] administration, Routine 0630 (Given - Provider: Elizabeth Giordano, CHRISTINA) rosuvastatin (CRESTOR) tablet 40 mg 40 mg, Oral, DAILY, First dose on 07/05/16 at 0900, Until Discontinued, Routine 0908 (Given - Provider: Joycelyn Combs, RN)1014 (OCT Hold - Provider: Admin Adt - Reason: Transfer to a Procedural area)1149 (OCT Unhold - Provider: Admin Adt) 0901 (Given - Provider: Joycelyn Combs RN) sodium chloride 0.9 % flush 5 mL 5 mL, Intravenous, 2 TIMES DAILY, First dose on Thu07/04/16 at 2100, Until Discontinued, Routine 2100 (Not Given - Provider: Elizabeth Giordano RN [...] (Rate/Dose Change - Provider: Elizabeth Giordano RN) 0239 (Paused - Provider: Elizabeth Giordano RN)0342 (Rate/Dose Change - Provider: Elizabeth Giordano RN)0918 (Paused - Provider: Joycelyn Combs RN)1014 (OCT Hold [...] duration of the active insulin., Routine 1014 (OCT Hold - Provider: Admin Adt - Reason: Transfer to a Procedural area)1149 (OCT Unhold - Provider: Admin Adt) fentaNYL 50 mcg/mL multi-dose injection (CANCELED) ONCE PRN, Starting on 07/05/16 at 0957, Until 07/05/16 at 1054, Intra-Operative (Intra-Procedure), Routine 0957 (Given - Provider: Minoo Dobbs RN) glucagon (human recombinant) injection 1 mg(Linked Group 3) 1 mg, Intramuscular, EVERY 1 HOUR PRN, Low blood sugar, Starting on Thu07/04/16 at 2003, Until Thu07/06/16 at 1507, For BG 50-70: 120 mL [...] the duration of the active insulin. 1014 (OCT Hold - Provider: Admin Adt - Reason: Transfer to a Procedural area)1149 (OCT Unhold - Provider: Admin Adt) lidocaine (XYLOCAINE) 10 mg/mL (1 %) injection 3 mg 3 mg (0.3 mL), Subcutaneous, ONCE PRN, 1 dose, Starting on Thu07/04/16 at 2002, Until 07/06/16 at 1507, for discomfort with PIV insertion, Routine 1014 ([facility] Hold - Provider: Admin Adt - Reason: Transfer to a Procedural area)1149 ([facility] Unhold - Provider: Admin Adt) LORazepam (ATIVAN) tablet 0.5 mg 0.5 mg, Oral, EVERY 8 HOURS PRN, Starting on Thu07/04/16 at 2002, Until 07/06/16 at 1507, Anxiety, Routine 1014 ([facility] Hold - Provider: Admin Adt - Reason: Transfer to a Procedural area)1149 ([facility] Unhold - Provider: Admin Adt) morphine 2 mg/mL carpuject 2 mg 2 mg, Intravenous, EVERY 6 HOURS PRN, Starting on Thu07/04/16 at 2002, Until 07/06/16 at 1507, Pain, Routine 2032 (Given - Provider: Elizabeth Giordano, CHRISTINA) 1014 ([facility] Hold - Provider: Admin Adt - Reason: Transfer to a Procedural area)1149 ([facility] Unhold - Provider: Admin Adt)2100 (Given - Provider: Elizabeth Giordano, CHRISTINA) nitroGLYcerin (NITROSTAT) SL tablet 0.4 mg 0.4 mg, Sublingual, EVERY 5 MIN PRN, Starting on Thu07/04/16 at 2002, Until 07/06/16 at 1507, Chest pain, SL nitroglycerin may be repeated every 5 minutes as needed up to 3 doses, Routine 0726 (Given - Provider: Joycelyn Combs, CHRISTINA)0730 (Given - Provider: Joycelyn Combs, CHRISTINA)1014 ([facility] Hold - Provider: Admin Adt - Reason: Transfer to a Procedural area)1149 ([facility] Unhold - Provider: Admin Adt) protamine injection (CANCELED) ONCE PRN, Starting on 07/05/16 at 1043, Until 07/05/16 at 1054, Cath (Intra-Procedure), Routine 1043 (Given - Provider: Elisa Mobley RN) sodium chloride 0.9 % flush 5-20 mL 5-20 mL, Intravenous, EVERY 1 MIN PRN, Starting on Thu07/04/16 at 2002, Until 07/06/16 at 1507, flush, Flush pertains to all indwelling lines. Flush per protocol found in the job aid using the link provided on this medication record., Routine 1014 (OCT Hold - Provider: Admin Adt - Reason: Transfer to a Procedural area)1149 (OCT Unhold - Provider: Admin Adt) No Frequency Medication Order 07/04/2016 07/05/2016 07/06/2016 heparin (porcine) 25,000 unit/500 mL (50 unit/mL) infusion (COMPLETED) 1 dose, Starting on Thu07/04/16 at 1843, Until Thu07/04/16 at 1859, JR BALL: cabinet override 185 (New Bag - Provider: Jr Ball, RN - Comment: Continued from OSH.) Linked [...] PROTOCOL, Starting on Thu07/04/16 at 2002, Until Thu07/05/16 at 2004, Per Protocol, START ADJUSTMENT SCHEDULE [...] CONTINUOUS, Starting on Thu07/04/16 at 2030, Until Thu07/05/16 at 2004, BEGIN infusion at 750 units [...] PRN, Starting on Thu07/04/16 at 2002, Until Thu07/06/16 at 1507, Low blood sugar, [...] Low blood sugar, Starting on Thu07/04/16 at 2003, Until 07/06/16 at 1507, For BG 50-70: [...] insulin. documented in this encounter Care Teams Wig Comber Relationship Specialty Start Date End Date Tang Ling MD [address] [place] [id number] PCP - General General Internal Medicine 07/04/16 documented as of this encounter
--- OUTSIDE RECORDS SUMMARY | 2024-05-02 14:25 | XMS_ITS | Encounter Summary ---
Author Organization [facility] Address [facility] [place] [address] Care Team Providers Care Paper Hanger Name Role Phone Unavailable Primary Care Provider Unavailabl e Encounter Details Date Type Department Care Team (Late st Contact Info) Description 10/24/2015 - 10/24/2015 11:59 PM EDT Hospital Encounter Radiology Library at [facility] [place] [phone] Adin Jones MD [facility] [place] [address] Pain Discharge Disposition: Home Social History Tobacco [...] 1:30 PM EST Office Visit Cardiology at [address] [phone] Delta Reyes MD [facility] [place] [address] documented as of this encounter Procedures Procedure Name Priority Date/Time Associated Diagnosis Comments FILM LIBRARY STORAGE ONLY MR HEAD AND SPINE Routine 10/24/2015 12:00 AM EDT Pain documented in this encounter Results * Film Library- Storage only MR Head and Spine (10/24/2015 12:00 AM EDT) Narrative [facility] - 02/27/2016 3:17 PM EDT This exam is for storage only and is auto-finalizing. Adin Jones MD IMG FILM LIBRARY ORDERABLES [place], [place] documented in this encounter Visit Diagnoses Diagnosis Pain Generalized pain documented in this encounter
--- OUTSIDE RECORDS SUMMARY | 2024-05-02 14:25 | XMS_ITS | Encounter Summary ---
Author Organization [facility] Address [facility] [place] [address] Care Team Providers Care Automation Application Engineer Name Role Phone Unavailable Primary Care Provider Unavailabl e Encounter Details Date Type Department Care Team (Late st Contact Info) Description 05/27/2016 Orders Only Cardiology at [address] [phone] Brian Carrion PA [facility] [place] [address] ASCVD (arteriosclerotic cardiovascular disease) Social History Tobacco [...] 1:30 PM EST Office Visit Cardiology at [address] [phone] Delta eRyes MD [facility] [place] [address] documented as of this encounter Procedures Procedure Name Priority Date/Time Associated Diagnosis Comments CARDIAC CATHETERIZATION Routine 05/28/2016 3:57 PM EDT ASCVD (arteriosclerotic cardiovascular disease) documented in this encounter Results * CARDIAC CATHETERIZATION (05/28/2016 3:57 PM EDT) Anatomical Region Laterality Modality Other Narrative 05/28/2016 4:33 PM EDT ?[facility] ? Cardiac Catheterization/Intervention Report ? Patient Name: Mo, Lou C. ? Procedure Date: 05/28/2016 ? A #: [id number] ? Primary Physician: Forrest Amaya V ? Case #: [id number] ? File Name: [id number] ? Catheterization Order Number: [id number] ? [facility] ? Final Report [place], [place] ? Patient Name: ? Lou Mo ? ID#: ?[id number] ? : ?1945 ? Procedure Date: ? May 28, 2016 ? Case #: ? [id number] ? Room: ? 1 ? Case Physician: ? Forrest Amaya M.D. ? Start: ?13:58 ?Fellow: ? Joanne Fortune M.D. ? Admission: ??05/28/2016 ?Marshall Chopra M.D. ? Discharge: ??05/29/2016 ? Referring ? Ari Mabry M.D. ? Physicians: ?Tang Laurent M.D. ? Procedures: ?* Coronary Angiography ?* Left Heart Catheterization ?* Coronary Stent Insertion ? History ?Lou Mo is a 70 year old woman. She has hypertension and a ?family history of coronary artery disease. The patient has ?hypercholesterolemia managed with lipid therapy. She has diabetes managed ?with oral medication. The patient has stable angina, a history of chest ?pain, a prior history of coronary artery disease and no symptoms of ?coronary artery disease. She has a history of dyspnea with NYHA ?functional class III. The patient has aortic regurgitation. She has a ?history of a heart murmur. The patient also has a history of an abnormal ?stress test. Prior to the initiation of this procedure, the patient was ?designated as ASA Class III. ?These procedures were performed for cardiac clearance for a future ?medical procedure. ? Indications for Diagnostic Cath: ?The patient presented with: stable angina (w/i 42 days). [place] ?Cardiovascular Society angina class was II. This patient was on beta ?blockers prior to the procedure. No stress or imaging studies were ?performed prior to this procedure. The status of the diagnostic procedure ?was Elective. ? Technique: ?A 6 SLFr sheath was inserted in the right radial artery utilizing the ?Seldinger technique. The left coronary artery was injected utilizing a ?5Fr JL 3.5 catheter. A 5Fr JR 4 catheter was used to inject the right ?coronary artery. Left ventricular pressure was performed with a 5Fr JR 4 ?catheter. Coronary stent insertion was performed and the equipment ?utilized will be described in the intervention summary section. 6,500 ?units of heparin were administered. A total of 200cc of Omnipaque were ?opened, 130cc of Omnipaque were administered and 70cc of Omnipaque were ?wasted. Radiation: Fluoro time was 25.4 minutes, dose area product was ?89,236 mGYcm2 and air kerma was 1,581 mGY. See the case log for ?additional details. ?The patient received the following medications prior to and during the ?procedure: Aspirin (any), Ticagrelor and Unfractionated Heparin (any). ? Hemodynamics: ?Left Heart Pressures ? Resting: ? Syst Diast ? EDP ?a ?v ? m ?Ao 130 ?? 73 ?100 ?LV 127 ? 6 ? Post Contrast: ? Syst Diast ? EDP ?a ?v ? m ?Ao 127 ?? 63 ?92 ?LV 130 ? 5 ? Coronary Angiography: ?Dominance: Right ?Left Main ? The left main was normal, free of disease. ?Left Anterior Descending ? There was a 35% long segmental stenosis of the proximal segment of ? the left anterior descending artery (LAD). ??The LAD was large. ??The ? mid segment of the LAD had a long segmental 85% stenosis. ??This ? lesion involved bifurcation. ? There was an 85% single discrete stenosis of the proximal segment of ? the first diagonal branch (Diagonal 1) of the LAD. ??The Diagonal 1 ? was moderate in size. ?Left Circumflex ? The left circumflex (LCX) was normal, free of disease. ?Right Coronary Artery ? The right coronary artery (RCA) was normal, free of disease. ?Ramus ? The ramus was normal, free of disease. ? Indication for Intervention: ?Coronary intervention was indicated for treatment of stable angina, CCS ?Class II. Left Ventricular Ejection fraction was not assessed. The ?priority for the procedure was Elective. The NCDR indication for the ?procedure was Stable angina. ? Intervention Summary: ?Left Anterior Descending Artery ? Mid 85% ? Stent insertion was performed on the 85% stenosis in the mid ? segment of the LAD. This was a de rossy lesion. According to ? the ACC/AHA classification system, this lesion was a type B2 ? high risk lesion. Primary prevention of restenosis was the ? indication for stent insertion. This was the culprit lesion. ? Vessel flow pre intervention was YAHAIRA 3. The lesion involves a ? bifurcation with the D1. This bifurcation lesion was treated ? with a two stent, 'T' technique and a final kissing balloon ? post-dilation. ? Stent insertion was accomplished through a 6 Fr. EBU 3.5 ? guide. ??The lesion was predilated with a 2.50mm EUPHORA 15 MM ? balloon with a maximum inflation pressure of 12 atmospheres. ? A premounted 2.50 x 18 mm Resolute (NIESHA) was deployed with a ? maximum inflation pressure of 9 atmospheres. ??Following stent ? deployment, the lesion was dilated using a 3.00mm NC EMERGE 12 ? MM balloon with a maximum inflation pressure of 8 atmospheres. ? The final outcome was defined as successful. There was no ? residual stenosis following this intervention. The final YAHAIRA ? flow was 3. ?First Diagonal Branch of the LAD ? Proximal 85% ? Stent insertion was performed on the 85% stenosis in the ? proximal segment of the Diagonal 1. This was a de rossy lesion. ? This lesion was designated a type B2 high risk lesion based on ? ACC/AHA classification system. Primary prevention of ? restenosis was the indication for stent insertion. This was ? the culprit lesion. Vessel flow pre intervention was YAHAIRA 3. ? Stent insertion was accomplished through a 6 Fr. EBU 3.5 ? guide. ??The lesion was predilated with a 2.50mm APEX 12 MM ? balloon with a maximum inflation pressure of 12 atmospheres. ? A premounted 2.50 x 08 mm Resolute (NIESHA) was deployed with a ? maximum inflation pressure of 10 atmospheres. ??Following stent ? deployment, the lesion was dilated using a 2.50mm APEX 12 MM ? balloon with a maximum inflation pressure of 8 atmospheres. ? The final outcome was defined as successful. There was no ? residual stenosis following this intervention. The final YAHAIRA ? flow was 3. ? Vascular Access: ?Vascular Access Management: ? Mechanical Compression of the right radial artery access site was ? performed. ? Conclusions: ?* One vessel coronary artery disease (LAD) ?* Successful stent insertion of the mid LAD lesion ?* Successful stent insertion of the proximal D1 lesion ?* Drug Eluting Stents Deployed. ? Complications/Events: ?The patient had no complications during these procedures. ? 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 ?Recommend DAPT for 12 months. ?The attending physician was present for the entire procedure. ?Dr. Forrest Amaya M.D. performed the coronary angiography, left heart ?catheterization and stent insertion-coronary. ? Forrest Amaya M.D. ? Electronically Signed by: Forrest Amaya M.D. ? Report Finalized: 05/28/2016 ??16:25 ? Report Last Ammended: 03/25/2021 ??14:28 ? Procedure Note Forrest Amaya MD - 03/25/2021 [facility] Cardiac Catheterization/Intervention Report Patient Name: MoLou Procedure Date: 05/28/2016 A #: [id number] Primary Physician: Forrest Amaya V Case #: [id number] File Name: [id number] Catheterization Order Number: [id number] [facility] FinalReport [place], [place] Patient Name: Lou Mo ID#:[id number] :1945 Procedure Date: May 28, 2016 Case #: [id number] Room: 1 Case Physician: Forrest Amaya M.D. Start: 13:58 Fellow: Joanne Fortune M.D. Admission:05/28/2016 Marshall Chopra M.D. Discharge:05/29/2016 Referring Ari Mabry M.D. Physicians: Tang Laurent M.D. Procedures: * Coronary Angiography * Left Heart Catheterization * Coronary Stent Insertion History Lou Mo is a 70 year old woman. She has hypertension soraya family history of coronary artery disease. The patient has hypercholesterolemia managed with lipid therapy. She has diabetesmanaged with oral medication. The patient has stable angina, a history ofchest pain, a prior history of coronary artery disease and no symptoms of coronary artery disease. She has a history of dyspnea with NYHA functional class III. The patient has aortic regurgitation. She hasa history of a heart murmur. The patient also has a history of anabnormal stress test. Prior to the initiation of this procedure, the patientwas designated as ASA Class III. These procedures were performed for cardiac clearance for a future medical procedure. Indications for Diagnostic Cath: The patient presented with: stable angina (w/i 42 days). [place] Cardiovascular Society angina class was II. This patient was on beta blockers prior to the procedure. No stress or imaging studies were performed prior to this procedure. The status of the diagnosticprocedure was Elective. Technique: A 6 SLFr sheath was inserted in the right radial artery utilizingthe Seldinger technique. The left coronary artery was injected utilizinga 5Fr JL 3.5 catheter. A 5Fr JR 4 catheter was used to inject theright coronary artery. Left ventricular pressure was performed with a 5FrJR 4 catheter. Coronary stent insertion was performed and the equipment utilized will be described in the intervention summary section.6,500 units of heparin were administered. A total of 200cc of Omnipaquewere opened, 130cc of Omnipaque were administered and 70cc of Omnipaquewere wasted. Radiation: Fluoro time was 25.4 minutes, dose area productwas 89,236 mGYcm2 and air kerma was 1,581 mGY. See the case log for additional details. The patient received the following medications prior to and duringthe procedure: Aspirin (any), Ticagrelor and Unfractionated Heparin(any). Hemodynamics: Left Heart Pressures Resting: Syst Diast EDP a v m Ao 130 73 100 LV 127 6 Post Contrast: Syst Diast EDP a v m Ao 127 63 92 LV 130 5 Coronary Angiography: Dominance: Right Left Main The left main was normal, free of disease. Left Anterior Descending There was a 35% long segmental stenosis of the proximal segmentof the left anterior descending artery (LAD). The LAD was large.The mid segment of the LAD had a long segmental 85% stenosis. This lesion involved bifurcation. There was an 85% single discrete stenosis of the proximalsegment of the first diagonal branch (Diagonal 1) of the LAD. TheDiagonal 1 was moderate in size. Left Circumflex The left circumflex (LCX) was normal, free of disease. Right Coronary Artery The right coronary artery (RCA) was normal, free of disease. Ramus The ramus was normal, free of disease. Indication for Intervention: Coronary intervention was indicated for treatment of stable angina,CCS Class II. Left Ventricular Ejection fraction was not assessed. The priority for the procedure was Elective. The [facility] indication for the procedure was Stable angina. Intervention Summary: Left Anterior Descending Artery Mid 85% Stent insertion was performed on the 85% stenosis in themid segment of the LAD. This was a de rossy lesion. Accordingto the ACC/AHA classification system, this lesion was a typeB2 high risk lesion. Primary prevention of restenosis wasthe indication for stent insertion. This was the culpritlesion. Vessel flow pre intervention was YAHAIRA 3. The lesioninvolves a bifurcation with the D1. This bifurcation lesion wastreated with a two stent, 'T' technique and a final kissingballoon post-dilation. Stent insertion was accomplished through a 6 Fr. EBU 3.5 guide. The lesion was predilated with a 2.50mm RUWBKNU51 MM balloon with a maximum inflation pressure of 12atmospheres. A premounted 2.50 x 18 mm Resolute (NIESHA) was deployedwith a maximum inflation pressure of 9 atmospheres. Followingstent deployment, the lesion was dilated using a 3.00mm NCEMERGE 12 MM balloon with a maximum inflation pressure of 8atmospheres. The final outcome was defined as successful. There was no residual stenosis following this intervention. The finalTIMI flow was 3. First Diagonal Branch of the LAD Proximal 85% Stent insertion was performed on the 85% stenosis in the proximal segment of the Diagonal 1. This was a de novolesion. This lesion was designated a type B2 high risk lesionbased on ACC/AHA classification system. Primary prevention of restenosis was the indication for stent insertion. Thiswas the culprit lesion. Vessel flow pre intervention was TIMI3. Stent insertion was accomplished through a 6 Fr. EBU 3.5 guide. The lesion was predilated with a 2.50mm APEX 12MM balloon with a maximum inflation pressure of 12atmospheres. A premounted 2.50 x 08 mm Resolute (NIESHA) was deployedwith a maximum inflation pressure of 10 atmospheres. Followingstent deployment, the lesion was dilated using a 2.50mm APEX 12MM balloon with a maximum inflation pressure of 8atmospheres. The final outcome was defined as successful. There was no residual stenosis following this intervention. The finalTIMI flow was 3. Vascular Access: Vascular Access Management: Mechanical Compression of the right radial artery access sitewas performed. Conclusions: * One vessel coronary artery disease (LAD) * Successful stent insertion of the mid LAD lesion * Successful stent insertion of the proximal D1 lesion * Drug Eluting Stents Deployed. Complications/Events: The patient had no complications during these procedures. Recommendations: The patient's medical regimen was changed as follows: Drug ElutingStents Deployed ASA 325 mg Chewed and Ticagrelor 180 mg PO administered in the cathlab. Recommend DAPT for 12 months. The attending physician was present for the entire procedure. Dr. Forrest Amaya M.D. performed the coronary angiography, leftheart catheterization and stent insertion-coronary. Forrest Amaya M.D. Electronically Signed by: Forrest Amaya M.D. Report Finalized: 05/28/2016 16:25 Report Last Ammended: 03/25/2021 14:28 Jamal Thurston MD CARDIAC CATH ORDERAB LES documented in this encounter Visit Diagnoses Diagnosis ASCVD (arteriosclerotic cardiovascular disease) Unspecified cardiovascular disease ASCVD (arteriosclerotic cardiovascular disease) Unspecified cardiovascular disease documented in this encounter
--- OUTSIDE RECORDS SUMMARY | 2024-05-02 14:25 | XMS_ITS | Encounter Summary ---
Author Organization [facility] Address [facility] Sulema [place] [address] Care Team Providers Care Personal Secretary Name Role Phone Unavailable Primary Care Provider Unavailabl e Reason for Visit * Auth/Cert Specialty Diagnoses / Procedures Referred By Vanesa t Referred To Contact Diagnoses S/P angioplasty with stent ASCVD Procedures CARDIAC CATHETERIZATION Referral ID Status Reason Start Date Expiration Date Visits Re quested Visits Authorized [id number] 1 1 Encounter Details Date Type Department Care Team (Late st Contact Info) Description 05/28/2016 11:00 AM EDT - 05/28/2016 12:00 PM EDT [place] [address] Forrest Amaya MD [facility] [place] [address] CARDIAC CATHETERIZATION Social History Tobacco Use Types [...] Sign Reading Time Taken Comments Blood Pressure 120/59 05/28/2016 11:31 AM EDT Pulse 73 05/28/2016 11:31 AM EDT Temperature 36.6 ??C (97.9 ??F) 05/28/2016 11:31 AM E DT Respiratory Rate 18 05/28/2016 11:31 AM EDT Oxygen Saturation 98% 05/28/2016 11:31 AM EDT Inhaled Oxygen Concentration - - Weight 62.1 kg (137 lb) 05/28/2016 11:31 AM EDT Height 154.9 cm (5' 1) 05/28/2016 11:31 AM EDT Body Mass Index 25.89 05/28/2016 11:31 AM EDT documented in this encounter Discharge Summaries * Joanne Fortune MD - 05/29/2016 8:16 AM EDT Discharge Summary Patient Name: Lou Mo Patient Age: 70 y.o. Language: Venezuelan Race: White Ethnicity: Not nor Admit date: [...] can discuss temporary discontinuation of plavix with market investigator, Dr Mabry) - can restart metformin 48hrs [...] been referred for cardiac cath by her market investigator Dr Mabry. Hospital Course: The patient underwent [...] Ticagrelor 180 mg PO administered in the dental laboratory worker. Recommend DAPT for 12 months. Pending Studies [...] appointments: -During 8am-5pm Thursday through Thursday call [phone] to speak with a nurse in the cardiology clinic -All other times call [phone] and ask to speak to the tax representative sponge press operator. MEDICATIONS - restart your metformin on 05/30/2016 [...] Primary care provider: Cardiology: JENNIFER FREITAS MD [phone] Follow up as planned or as needed. [...] appointments: -During 8am-5pm Thursday through Thursday call [phone] to speak with a nurse in the cardiology clinic -All other times call [phone] and ask to speak to the tax representative sponge press operator. MEDICATIONS - restart your metformin on 05/30/2016 [...] Primary care provider: Cardiology: JENNIFER FREITAS MD [phone] Follow up as planned or as needed. [...] Birthdate: 1945 Admit date: 05/28/2016 Attending Physician: No att. providers found Inpatient Interventional Cardiology Discharge [...] 3-4 weeks, Dr Raghavendra Fortune MD Interventional Or Director Interventional Cardiology Attending Note Patient seen and examined by me and discussed with Dr. Fortune. Please see her note which summarizes our findings and plan. Forrest Amaya M.D., F.A.C.C. core cleaner Pager 2020 * Susana Cerda RN - [...] 3-4 weeks, Dr Raghavendra Fortune MD Interventional Or Director Interventional Cardiology Attending Note Patient seen and examined by me and discussed with Dr. Fortune. Please see her note which summarizes our findings and plan. Forrest Amaya M.D., F.A.C.C. core cleaner Pager 2020 * Joanne Fortune MD - 05/28/2016 11:25 AM EDT Lou Mo is a 70 y.o. female referred [...] - FULL code Joanne Fortune MD Interventional Or Director documented in this encounter H&P Notes * [...] without apparent complication. Forrest Amaya M.D., F.A.C.C. core cleaner Pager 2020 documented in this encounter Miscellaneous [...] Interventions Self-Care Promotion -- -- independence encouraged [place] Fall Risk History of Falling [...] -- Positioning Body Position -- independent -- 05/29/16 07 Musculoskeletal Interventions Muscle Strengthening -- Daily Care [...] Outcome (s) achieved Date Met: 05/29/16 05/28/16 [id number] Safety Interventions Isolation Precautions -- standard precautions [...] RN - 05/29/2016 9:30 AM EDT Lou Mo was seen today by Cardiac [...] to the outpatient cardiac rehabilitation program at [facility] wasdiscussed. Patient agrees to a referral to this program. The referral will be sent at discharge and the patient should be contacted by the Program within 1- 2 weeks from discharge. * Plan of Care - Frannie Timmons RN - 05/29/2016 3:05 AM EDT Problem: Patient Care Overview Goal: Plan of Care Review Outcome: Ongoing (Interventions Implemented as Appropriate) 05/28/16194105/29/16 0250 Plan of Care Review Progress -- [...] Review Outcome: Ongoing (Interventions Implemented as Appropriate) 05/28/161754 Coping/Psychosocial Plan Of Care Reviewed With patient [...] Outcome: Ongoing (Interventions Implemented as Appropriate) 05/28/16 175 Safety Interventions Isolation Precautions standard precautions maintained [...] PM EST Office Visit Cardiology at [address] [address] Delta Reyes MD [facility] [place] [address] documented as of this encounter Procedures Procedure Name Priority Date/Time Associated Diagnosis Comments POCT GLUCOSE Routine 05/29/2016 7:25 AM EDT EKG 12-LEAD Routine 05/29/2016 7:13 AM EDT ASCVD (arteriosclerotic cardiovascular disease) CARDIAC ENZYMES ([facility]) Timed 05/29/2016 6:36 AM EDT XR CHEST ONE VIEW STAT 05/29/2016 1:2 0 AM EDT BMP W/FASTING GLUCOSE Routine 05/29/2016 12:42 AM EDT HEMOGRAM Routine 05/29/2016 12:42 AM EDT DIFFERENTIAL, AUTOMATED Routine 05/29/2016 12:42 AM EDT CARDIAC ENZYMES ([facility]) Routine 05/29/2016 12:42 AM EDT CBC (WITH DIFF) Routine 05/29/2016 12:42 AM EDT PRO-BRAIN NATRIURETIC PEPTIDE Routine 05/29/2016 12:42 AM EDT EKG 12-LEAD STAT 05/29/2016 12:04 AM EDT ASCVD (arteriosclerotic cardiovascular disease) TELEPHONE OPERATOR CHIEF SCAN 05/29/2016 12:00 AM EDT POCT GLUCOSE Routine 05/28/2016 11:47 PM EDT POCT GLUCOSE Routine 05/28/2016 10:34 PM EDT POCT GLUCOSE Routine 05/28/2016 6:02 PM EDT EKG 12-LEAD Routine 05/28/2016 4:36 PM EDT ASCVD (arteriosclerotic cardiovascular disease) POCT GLUCOSE Routine 05/28/2016 2:26 PM EDT documented in this encounter Results * POCT Glucose (05/29/2016 7:25 AM EDT) [facility] Glucose, POC 158 65 - 199 mg/dL [facility] Comment: Supplemental ranges: <140 mg/dL before meals <180 mg/dL all other times of the day Blood specimen (specimen) 05/29/2016 7:25 AM EDT 05/29/2016 7:25 AM EDT Forrest Oconnor MD POINT OF CARE TEST O RDERABLES [facility] [place] [address] * EKG 12 Lead (05/29/2016 7:13 AM EDT) Ventricular rate 69 BPM MUSE SYSTEM Atrial Rate 69 BPM MUSE SYSTEM P-R Interval 198 ms MUSE SYSTEM QRS Duration 86 ms MUSE SYSTEM Q-T Interval 418 ms MUSE SYSTEM QTC Calculated (Bezet) 447 ms MUSE SYSTEM Calculated P [place] 24 degrees MUSE SYSTEM Calculated R [place] -16 degrees MUSE SYSTEM Calculated T [place] 15 degrees MUSE SYSTEM INTERPRETATION Normal sinus rhythm Normal ECG When compared with ECG of 29-MAY-2016 00:04, (unconfirmed) No significant change was found Confirmed by MD Jennifer, Gideon ([id number]) on 05/29/2016 3:58:54 PM MUSE SYSTEM 05/29/2016 7:13 AM EDT 05/29/2016 3:58 PM EDT Forrest Oconnor MD ECG ORDERABLES MUSE SYSTEM * Cardiac Enzymes (05/29/2016 6:36 AM EDT) Troponin-T Not Perf <=0.03 ng/mL [facility] Comment: Unable to quantitate due to sample hemolysis. ??Sample redraw suggested. Called to Susana 05/29/16 07:26 0.03 ng/mL: Represents the 99th percentile upper reference limit for normals. >0.03 ng/mL: Elevated cardiac troponin T level indicative of myocardial damage. Diagnosis of acute, evolving or recent GA requires a typical rise and gradual fall [...] consensus document of the Joint Society of Cardiology/[place] College of Cardiology Committee for the redefinition of myocardial infarction. ??Journal of the [place] College of Cardiology 2000; 36: 959-969] Creatine Kinase 77 0 - 160 unit/L [facility] Blood specimen (specimen) 05/29/2016 6:36 AM EDT 05/29/2016 6:43 AM EDT Narrative Resulting Agency Comment Spec In Lab Don Rock MD CHEMISTRY ORDERABLES [facility] [place] [address] * XR Chest PA or AP 1 [...] 12:42 AM EDT) NT-proBNP 88 <=125 pg/mL [facility] Blood specimen (specimen) Venous Draw / Unknown 05/29/2016 12:42 AM EDT 05/29/2016 12:47 AM EDT Narrative Resulting Agency Comment Spec In Lab Forrest Oconnor MD CHEMISTRY ORDERABLES [facility] [place] [address] * Differential, Automated (05/29/2016 12:42 AM EDT) Neutrophil % 64.3 % [facility] Neutrophil Absolute 4.28 1.70 - 6.10 x10(3)/[facility] Lymph % 26.5 % [facility] Lymphocytes Abs 1.8 0.9 - 3.2 x10(3)/[facility] Monocyte % 6.9 % [facility] Monocyte Abs 0.5 0.3 - 0.9 x10(3)/[facility] Eos % 1.5 % [facility] Eosinophils Abs 0.1 0.0 - 0.4 x10(3)/[facility] Basophil % 0.7 % [facility] Baso Absolute 0.0 0.0 - 0.1 x10(3)/[facility] Immature Gran % 0.10 % [facility] Comment: Immature granulocytes(IG's)percentage and absolute count will include metamyelocytes, myelocytes, and promyelocytes. Blood smears from CBCs yielding IG's will be scanned manually for concordance. If this scan disagrees with the automated IG or if promyelocytes are noted, a manual differential will be performed. Immature Gran Absolute 0.01 0.00 - 0.04 x10(3)/[facility] Blood specimen (specimen) 05/29/2016 12:42 AM EDT 05/29/2016 12:47 AM EDT Narrative Resulting Agency Comment Spec In Lab Forrest Oconnor MD HEMATOLOGY ORDERABLE S [facility] [place] [address] * (ABNORMAL) Hemogram (05/29/2016 12:42 AM EDT) White Blood Cell 6.7 4.0 - 9.5 x10(3)/mc L [facility] Red Blood Cell 3.83(L) 4.00 - 5.21 x10(6)/mc L [facility] Hemoglobin 11.7 11.7 - 15.5 gm/dL [facility] Hematocrit 34.5(L) 35.7 - 45.8 % [facility] Mean Cell Volume 90.1 82.6 - 94.4 fL [facility] Mean Cell Hemoglobin 30.5 27.1 - 32.0 pg [facility] Mean Cell Hemoglobin Concentration 33.9 31.7 - 35.0 gm/dL [facility] Platelet 151 145 - 357 x10(3)/mc L [facility] RDW Standard Deviation 39.8 37.0 - 46.0 [facility] RDW coefficient of variation 12.2 11.5 - 14.1 % [facility] Mean Platelet Volume 10.0 7.6 - 12.9 [facility] NRBC% auto 0.0 % [facility] NRBC Absolute 0.000 0.000 - 0.000 x10(3)/mc L [facility] Blood specimen (specimen) 05/29/2016 12:42 AM EDT 05/29/2016 12:47 AM EDT Narrative Resulting Agency Comment Spec In Lab Forrest Oconnor MD HEMATOLOGY ORDERABLE S Performing Organization Address City/State/[facility] Co de Phone Number [facility] [place] [address] * (ABNORMAL) BMP w/fasting Glucose (05/29/2016 12:42 AM EDT) Glucose Fasting 149(H) 65 - 99 mg/dL [facility] Comment: ?Fasting* Glucose Interpretive Criteria Normal [...] of Diabetes Mellitus, Position Statement from the [place] Diabetes Association. ??Diabetes Care, Volume 33, Supplement 1, Aug 2009 Blood Urea Nitrogen 15 8 - 18 mg/dL [facility] Creatinine 0.85 0.70 - 1.20 mg/dL [facility] Comment: Please note that the pediatric reference intervals supplied above were not validated at [facility]. Results from pediatric patients should be interpreted in conjunction to the patient's age, height and muscle mass. Sodium 143 135 - 145 mmol/L [facility] Potassium 3.7 3.5 - 5.0 mmol/L [facility] Comment: Please note: ??Patients with WBC >100,000 may have falsely elevated Potassium levels. ??For accurate Potassium quantification in these patients send serum separator tube (gold top) for subsequent determinations. ??Contact the Clinical Chemistry Laboratory if there are any questions. Chloride 106 98 - 107 mmol/L [facility] Carbon Dioxide 23 22 - 31 mmol/L [facility] Anion Gap 14 5 - 15 mmol/L [facility] Calcium 8.4(L) 8.5 - 10.5 mg/dL [facility] Est Glomerular Filtration Rate >60 >=60 [facility] Comment: This estimated GFR (eGFR) [...] the following links into your internet browser. [email or web address] Blood specimen (specimen) 05/29/2016 12:42 AM EDT 05/29/2016 12:47 AM EDT Narrative Resulting Agency Comment Spec In Lab Forrest Oconnor MD CHEMISTRY ORDERABLES [facility] [place] [address] * (ABNORMAL) Cardiac Enzymes (05/29/2016 12:42 AM EDT) Troponin-T 0.05(H) <=0.03 ng/mL [facility] Comment: 0.03 ng/mL: Represents the 99th percentile upper reference limit for normals. >0.03 ng/mL: Elevated cardiac troponin T level indicative of myocardial damage. Diagnosis of acute, evolving or recent GA requires a typical rise and gradual fall [...] consensus document of the Joint Society of Cardiology/[place] College of Cardiology Committee for the redefinition of myocardial infarction. ??Journal of the [place] College of Cardiology 2000; 36: 959-969] Creatine Kinase 61 0 - 160 unit/L [facility] Blood specimen (specimen) 05/29/2016 12:42 AM EDT 05/29/2016 12:47 AM EDT Narrative Resulting Agency Comment Spec In Lab Forrest Oconnor MD CHEMISTRY ORDERABLES Performing Organization Address City/State/[facility] Co de Phone Number [facility] [place] [address] * EKG 12 Lead (05/29/2016 12:04 AM EDT) Ventricular rate 69 BPM MUSE SYSTEM Atrial Rate 69 BPM MUSE SYSTEM P-R Interval 212 ms MUSE SYSTEM QRS Duration 84 ms MUSE SYSTEM Q-T Interval 406 ms MUSE SYSTEM QTC Calculated (Bezet) 435 ms MUSE SYSTEM Calculated P [place] 48 degrees MUSE SYSTEM Calculated R [place] -25 degrees MUSE SYSTEM Calculated T [place] 40 degrees MUSE SYSTEM INTERPRETATION Sinus rhythm with 1st degree A-V block Low voltage QRS Borderline ECG When compared with ECG of 28-MAY-2016 16:36, (unconfirmed) No significant change was found Confirmed by MD SARAH, AUGUSTA ([id number]) on 05/29/2016 8:22:43 AM MUSE SYSTEM 05/29/2016 12:0 4 AM EDT 05/29/2016 8:22 AM EDT Forrest Oconnor MD ECG ORDERABLES Performing Organization Address City/[facility]/ZIP Co de Phone Number MUSE SYSTEM * SCAN DOC: TELEPHONE OPERATOR CHIEF (05/29/2016 12:00 AM EDT) Anatomical Region Laterality Modality Other Scanning Provider MEDIA MGR SCAN EXT O RDR/RSLT * POCT Glucose (05/28/2016 11:47 PM EDT) Glucose, POC 133 65 - 199 mg/dL [facility] Comment: Supplemental ranges: <140 mg/dL before meals <180 mg/dL all other times of the day Blood specimen (specimen) 05/28/2016 11:47 PM EDT 05/28/2016 11:47 PM EDT Forrest Oconnor MD POINT OF CARE TEST O RDERADEBI Performing Organization Address [facility] Co de Phone Number [facility] [place] [address] * POCT Glucose (05/28/2016 10:34 PM EDT) Glucose, POC 156 65 - 199 mg/dL [facility] Comment: Supplemental ranges: <140 mg/dL before meals <180 mg/dL all other times of the day Blood specimen (specimen) 05/28/2016 10:34 PM EDT 05/28/2016 10:34 PM EDT Forrest Oconnor MD POINT OF CARE TEST O RDERABLES Performing Organization Address [facility] Co de Phone Number [facility] [place] [address] * POCT Glucose (05/28/2016 6:02 PM EDT) Glucose, POC 108 65 - 199 mg/dL [facility] Comment: Supplemental ranges: <140 mg/dL before meals <180 mg/dL all other times of the day Blood specimen (specimen) 05/28/2016 6:02 PM EDT 05/28/2016 6:02 PM EDT Forrest Oconnor MD POINT OF CARE TEST O RDERABLES Performing Organization Address [facility] Co de Phone Number [facility] [place] [address] * EKG 12 Lead (05/28/2016 4:36 PM EDT) Ventricular rate 83 BPM MUSE SYSTEM Atrial Rate 83 BPM MUSE SYSTEM P-R Interval 204 ms MUSE SYSTEM QRS Duration 84 ms MUSE SYSTEM Q-T Interval 392 ms MUSE SYSTEM QTC Calculated (Bezet) 460 ms MUSE SYSTEM Calculated P [place] 36 degrees MUSE SYSTEM Calculated R [place] -23 degrees MUSE SYSTEM Calculated T [place] 29 degrees MUSE SYSTEM INTERPRETATION Normal sinus rhythm Normal ECG When compared with ECG of 12-JUN-2013 07:07, QT has lengthened Confirmed by MD SARAH, AUGUSTA ([id number]) on 05/29/2016 8:22:27 AM MUSE SYSTEM 05/28/2016 4:36 PM EDT 05/29/2016 8:22 AM EDT Forrest Oconnor MD ECG ORDERABLES Performing Organization Address [facility] Phone Number MUSE SYSTEM * POCT Glucose (05/28/2016 2:26 PM EDT) Glucose, POC 111 65 - 199 mg/dL [facility] Comment: Supplemental ranges: <140 mg/dL before meals <180 mg/dL all other times of the day Blood specimen (specimen) 05/28/2016 2:26 PM EDT 05/28/2016 2:26 PM EDT Forrest Oconnor MD POINT OF CARE TEST O RDERABLES Performing Organization Address [facility] Co de Phone Number [facility] [place] [address] documented in this encounter Visit Diagnoses Diagnosis ASCVD (arteriosclerotic cardiovascular disease) Unspecified cardiovascular disease S/P coronary artery stent placement Postsurgical percutaneous transluminal coronary angioplasty status ASCVD (arteriosclerotic cardiovascular disease) Unspecified cardiovascular disease [...] in 24 hours., Routine aspirin chewable tablet ONCE PRN, Starting on Thu05/28/16 at 1431, Until Thu05/28/16 at 1550, Intra-Operative (Intra-Procedure), Routine Given 05/28/2016 2:31 PM EDT 324 mg aspirin EC tablet 81 mg 81 [...] the duration of the active insulin., Routine fentaNYL 50 mcg/mL multi-dose injection ONCE PRN, Starting on Thu05/28/16 at 1440, Until Thu05/28/16 at 1550, Cath (Intra-Procedure), Routine Given 05/28/2016 2:41 PM EDT 25 mcg glucagon (human recombinant) injection 1 [...] of the active insulin. heparin (porcine) injection ONCE PRN, Starting on Thu05/28/16 at 1403, Until Thu05/28/16 at 1550, Cath (Intra-Procedure), Routine Given 05/28/2016 2:29 PM EDT 2,500 Units Given 05/28/2016 2:03 PM EDT 4,000 Units insulin lispro (humaLOG) VIAL injection 1-4 Units [...] no insulin and resume prior schedule., Routine iohexol (OMNIPAQUE) 350 mg/mL solution ONCE PRN, Starting on Thu05/28/16 at 1547, Until Thu05/28/16 at 1550, Cath (Intra-Procedure), Routine Given 05/28/2016 3:47 PM EDT 130 mLs lidocaine (XYLOCAINE) 10 mg/mL (1 %) injection ONCE PRN, Starting on Thu05/28/16 at 1348, Until Thu05/28/16 at 1550, Cath (Intra-Procedure), Routine Given 05/28/2016 1:48 PM EDT 10 mLs meTOPROLOL tartrate (LOPRESSOR) tablet 50 mg 50 [...] (Recovery-Hospital Unit), Routine Given 05/29/2016 12:29 AM E DT 0.4 mg nitroGLYcerin 100 mcg/mL intracoronary dilution ONCE PRN, Starting on Thu05/28/16 at 1357, Until Thu05/28/16 at 1550, Cath (Intra-Procedure), Routine Given 05/28/2016 3:42 PM EDT 150 mcg Given 05/28/2016 2:30 PM EDT 150 mcg Given 05/28/2016 1:57 PM EDT 150 mcg ondansetron (ZOFRAN) injection 4 mg 4 mg, Intravenous, EVERY 8 HOURS PRN, Starting on Amelia 05/29/16 at 0049, Until Amelia 05/29/16 at 1229, Nausea Given 05/29/2016 1:00 AM EDT 4 mg rosuvastatin (CRESTOR) tablet 40 mg 40 mg, Oral, EVERY EVENING, First dose on Thu05/28/16 at 2100, Until Discontinued, Routine Given 05/28/2016 9:20 PM EDT 40 mg sodium chloride 0.9% infusion 100 mL/hr, Intravenous, CONTINUOUS, Starting on Thu05/28/16 at 1630, Until Thu05/28/16 at 1929, Recovery (Recovery-Hospital Unit) [facility] 05/28/2016 4:30 PM EDT 100 mL/hr 100 mL/hr Left Arm ticagrelor (BRILINTA) tablet ONCE PRN, Starting on Thu05/28/16 at 1433, Until Thu05/28/16 at 1746, Cath (Intra-Procedure), Routine Given 05/28/2016 2:33 PM EDT 180 mg verapamil (ISOPTIN) injection ONCE PRN, Starting on Thu05/28/16 at 1357, Until Thu05/28/16 at 1550, Administer over 2 Minutes, Cath (Intra-Procedure) Given 05/28/2016 1:57 PM EDT 2.5 mg documented in this encounter Active [...] 2119 (Given - Provider: Frannie Timmons RN) Continuous Medication Order 05/27/2016 05/28/2016 05/29/2016 sodium [...] Cath (Intra-Procedure) 1357 (Given - Provider: Joanne Fortune MD) Linked Groups Order Group 1: POCT [...]
--- OUTSIDE RECORDS SUMMARY | 2024-05-02 14:25 | XMS_ITS | Encounter Summary ---
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 * Consultation (Routine) - Closed Specialty Diagnoses / Procedures Referred By Vanesa soto Referred To Contact Ophthalmology Diagnoses photopsia with retinal traction/hemorrhage Procedures consult,eval,treat Gokul Marinelli MD [address] [place] [id number] [facility] [address] [place] [id number] Referral ID Status Reason Start Date Expiration Date Visits Re quested Visits Authorized [id number] Closed 11/26/2015 11/25/2016 1 1 Encounter Details Date Type Department Care Team (Late st Contact Info) Description 12/11/2015 2:00 PM EDT Office [place] [phone] Abran Olivera MD [facility] [place] [address] Retinal scar of right eye Social History Tobacco Use Types Packs/Day Years Used Date Smoking Tobacco: Never Alcohol Use Standard Drinks/Week Comments Yes 0 (1 standard drink = 0.6 oz pur e alcohol) social Sex and Gender Information Value Date Recorded Sex Assigned at Not on file Gender Identity Not on file Sexual Orientation Not on file documented as of this encounter Progress Notes * Abran Olivera MD - 12/11/2015 3:46 PM EDT Dear Gokul: I had the pleasure of seeing Lou Mo for formal consultation on December 11, 2015. As you know, she is a very pleasant patient in whom you discovered a peripheral retinal scar in the setting of a 5 month history of daily photopsias in the right eye. She describes flashes occurring daily and describes 1-2 episodes of photopsias in the right eye occurring in the day and 4-5 at night. Only occasional phtopsias OS She also associates periocular discomfort with these photopsias and pain with extraocular movement, especially with abduction. She describes the photopsia as a thin bright linear line extending through central vision from top to bottom. She denies any associated headaches or other neurologic symptoms. No related GCA symtoms We initiated a conversation regarding the need for a visual field test and perhaps neuroimaging. She indicates that these tests have already been performed I do not have the results of those studies. 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 There were no signs of active toxoplasmosis. Furthermore, there were no signs of ocular ischemia. The optic nerve reveals good color and contour and I do not see any evidence of disc drusen or a primary optic disc problem which would account for her symptoms. From a retina vantage point, I think the scar is perfectly stable. Certainly it is conceivable there may be traction in this area eliciting her symptoms, but I doubt that this is likely nor would they be linear in their configuration. 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 From a retina vantage point, I do not think any specific intervention is necessary. In terms of follow up, I would see if her visual field studies and MRI studies could be secured and that she see a neurologist sometime in the weeks ahead. Alternatively, once the visual field and MRI results are available, then she could benefit from consultation with Dr. Patel here at [facility] or Mitzy Dover (orbit) It would be best to initiate subspecialty consultation once the MRI studies and visual field tests have been secured and reviewed by you and her neurologist.. It is imperative that appropriatesections through the orbit and orbital apex were performed. It may not be a bad idea to secure a sedimentation rate and C-reactive protein as well. I reassured Lou that her symptom is not likely to be a retinal issue. If you have any questions or concerns, or if I can facilitate additional consultation here, please let me know. Respectfully, Aldo CC: Tang Laurent documented in this encounter Plan of Treatment Upcoming Encounters Date Type Department Care Team (Late st Contact Info) Description 07/06/2024 1:30 PM EST Office Visit Cardiology at [address] [phone] Delta Reyes MD [facility] [place] [address] documented as of this encounter Visit Diagnoses Diagnosis Retinal scar of right eye documented in this encounter
--- OUTSIDE RECORDS SUMMARY | 2024-05-02 14:26 | XMS_ITS | Encounter Summary ---
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 [address] Discharge Disposition: Admitted to [facility] Social History Tobacco Use Types Packs/Day Years [...] 1:30 PM EST Office Visit Cardiology at [address] [phone] Delta Reyes MD [facility] [place] [address] documented as of this encounter Visit Diagnoses Not on filedocumented in this encounter
--- OUTSIDE RECORDS SUMMARY | 2024-05-02 14:26 | XMS_ITS | Encounter Summary ---
Author Organization [facility] Address [facility] [address]ma [place] [address] Care Team Providers Care Visual Education Teacher Name Role Phone Unavailable Primary Care Provider Unavailabl e Encounter Details Date Type Department Care Team (Late st Contact Info) Description 06/11/2013 10:00 AM EST - 06/11/2013 11:04 AM EST [place] [id number] Forrest Amaya MD [facility] [place] [address] CARDIAC CATHETERIZATION Social History Tobacco Use Types [...] Sign Reading Time Taken Comments Blood Pressure 117/67 06/12/2013 11:16 AM EST Pulse 63 06/12/2013 11:16 AM EST Temperature 37 ??C (98.6 ??F) 06/12/2013 11:16 AM EST Respiratory Rate 16 06/12/2013 11:16 AM EST Oxygen Saturation 95% 06/12/2013 11:16 AM EST Inhaled Oxygen Concentration - - Weight 66.5 kg (146 lb 9.7 oz) 06/12/2013 7:00 A M EST Height 167.6 cm (5' 6) 06/11/2013 1:10 AM EST Body Mass Index 23.66 06/11/2013 1:10 AM EST documented in this encounter Discharge Instructions * Discharge Instructions* Baldo Puckett APRN - 06/12/2013 8:30 AM EST Anti-coagulation follow up: n/a Call your doctor if: Chest pain, shortness of breath, pain or swelling in legs occurs. If you have non-emergent questions between now and the time of your follow up appointments: During 8am-5pm Thursday through Thursday call [phone] to speak with a nurse in the cardiology clinic All other times call [phone] and ask to speak to the value stream manager directional drill operator. Return to work: One week Driving: No driving for 48 hours after catheterization. 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 Driver Dr Mabry as scheduled in the beginning of the year Home oxygen therapy: N/A Arrangements for VNA/home care: none * Attachments The following attachments cannot be sent through Care Everywhere. * PERCUTANEOUS CORONARY INTERVENTION: WHAT TO EXPECT AT HOME (INDONESIAN) documented in this encounter Medications at Time [...] daily. 12/11/2015 documented as of this encounter Progress Notes * Pilar Patel RN - 06/12/2013 12:11 PM EST 1210- Pt given discharge instructions and medication information via verbal and written communication. Pt expressed a correct verbal understanding of discharge instructions and medication information. Pt disconnected from telemetry and IV removed. Pt discharge for home via personal vehicle with family. * Jennifer Andersen - 06/12/2013 8:30 AM EST Inpatient Cardiology Progress Note Patient Name: Lou Mo Service: OPEN CLAIMS REPRESENTATIVE / PA Responsible Attending: Jennifer Andersen MD Reason for continued hospitalization: Evaluation and management of chest pain, ruled out for myocardial infarction Cardiac cath with non obstructive disease Active Problems: Active Hospital Problems Diagnosis ??? Chest pain ??? Unstable angina Resolved Hospital Problems Diagnosis Date Resolved No resolved problems to display. Interval History: Patient did well with cardiac cath yesterday. Back pain continues today, somewhathelped with tylenol dosing. Review of Systems: Review of Systems Respiratory: Negative for shortness of breath. Cardiovascular: Negative for chest pain. Musculoskeletal: Positive for back pain. Right groin feels slightly sore. All other systems reviewed and are negative. Telemetry: HR: 55-85 sinus bradycardia, sinus rhythm with possible sinus arrhythmia Meds: Scheduled Meds: ??? rosuvastatin 40 mg Oral QPM ??? aspirin 325 mg Oral Daily ??? clopidogrel 75 mg Oral Daily ??? metoprolol tartrate 25 mg Oral Q6H ROBERT ??? sodium chloride 0.9 % 5 mL Intravenous Q12H ? ? insulin aspart 3-12 Units Subcutaneous 4 Times Daily AC & HS ??? [COMPLETED] diaZEPam 5 mg Oral Once ??? [COMPLETED] diphenhydrAMINE 25 mg Oral Once Continuous Infusions: ??? [] sodium chloride 0.9% 125 mL/hr (06/11/13 1200) ??? [DISCONTINUED] nitroGLYcerin Stopped (06/11/13 0400) ??? [DISCONTINUED] heparin 750 Units/hr (06/11/13 0318) ??? [DISCONTINUED] sodium chloride 0.9% 200 mL/hr (06/11/13 0840) PRN Meds:.morphine, traZODone, nitroGLYcerin, dextrose 50%, glucagon (human recombinant), atropine,fentaNYL (PF), midazolam, nitroGLYcerin, acetaminophen, OXYcodone-acetaminophen, [DISCONTINUED] heparin (porcine), [DISCONTINUED] fentaNYL (PF), [DISCONTINUED] midazolam, [DISCONTINUED] lidocaine, [DI SCONTINUED] iohexol Physical Exam: Vital Signs: Last value Range last 24 hrs Temperature Temp: 36.8 ??C (98.2 ??F) Temp: [36.3 ??C (97.3 ??F)-37 ??C (98.6 ??F)] Heart Rate Heart Rate: 62 Heart Rate: [51-71] Blood Pressure BP: 129/73 mmHg BP: (105-129)/(41-73) Respiratory Rate Resp: 16 Resp: [11-16] SpO2 SpO2: 93 % SpO2: [93 %-100 %] Physical Exam Nursing note and vitals reviewed. Constitutional: She is oriented to person, place, and time. She appears well- developed and well-nourished. No distress. HENT: Head: Normocephalic and atraumatic. Eyes: Right eye exhibits no discharge. Left eye exhibits no discharge. Neck: Normal range of motion. Neck supple. No JVD present. Cardiovascular: Normal rate, regular rhythm, normal heart sounds and intact distal pulses. Exam reveals no gallop and no friction rub. No murmur heard. Pulmonary/Chest: Effort normal and breath sounds normal. No respiratory distress. She has no wheezes. She has no rales. Abdominal: Soft. Bowel sounds are normal. She exhibits no distension. There is no tenderness. Thereis no rebound. Musculoskeletal: Normal range of motion. Neurological: She is alert and oriented to person, place, and time. Skin: Skin is warm and dry. She is not diaphoretic. No erythema. Right groin is clean, dry and intact. No hematoma or ooze. No bruit. Intact distal pedal pulses. Psychiatric: She has a normal mood and affect. Her behavior is normal. Lab Comments: Recent Labs Basename 06/12/1334206/11/1380406/11/13141 WBC 5.9 6.0 6.9 HGB 11.9 11.6 11.5 HCT 35.9 34.7 33.6* PLATELET 115* 110* 118* Recent Labs Basename 06/11/13141 INR 1.1 Recent Labs Basename 06/12/1334206/11/1380406/11/13141 NA 140 143 141 K 4.0 3.8 3.8 CL 108* 108* 108* CO2 25 25 24 BUN 14 13 16 CREATININE 0.82 0.80 0.82 No results found for this basename: AST:3,ALT:3,ALKPHOS:3,BILITOT:3,BILIDIR:3 in the last 168 hours Recent Labs Basename 06/12/13 0343 06/11/13 0805 06/11/13 0142 CALCIUM 8.7 8.3* 8.2* MAGNESIUM -- -- 0.78 PHOS -- -- -- Recent Labs Basename 06/11/13 1315 06/11/13 0805 06/11/13 0142 CK 58 62 64 TROPONINT <0.03 <0.03 <0.03 Pertinent Radiographic/Diagnostic Results: Cardiac Cath: LM: normal LAD: mild diffuse disease prox LCx: normal RCA: normal Ramus: normal Thorascic spine films: Anterior lipping seen, likely arthritic changes, final report pending Assessment/Plan: Lou Mo is a 67 y.o. female who had atypical chest pain yesterday. Storyconsistent with unstable angina-started 7 days ago, worse with exertion improved with rest, pain mostly in her back with associated shortness of breath and nausea. Cardiac cath essentially unchanged from prior. LDL at 100, despite crestor 40 mg daily. Encouraged to look at diet to see if any improvements could be made. Patient will follow up with her PCP this week and Dr. Mabry as scheduled. Anticipate discharge home today with no medication changes. Discharge Note Cardiology Staff Please see Baldo Puckett's note above for detailed overnight history, interval physical exam, laboratory data, assessment and plan. I have reviewed this note and agree. I have seen the patient concomitantly with Baldo to assess her for discharge. This included my independent exam and development of the discharge plans as outlined in the note and discharge summary.Patient had no significant flow limiting obstructive coronary disease on cath. Discussed cholesterol targets, she is maximized onher statin therapy. Encouraged furthur dietary control. I have discussed these with the patient. Total time = 35 min. * Jennifer Andersen - 06/11/2013 11:21 AM EST Patient Name: Lou Mo Patient Age: 67 y.o. Birthdate: 1945 Admit date: 06/11/2013 Attending Physician: Jennifer Andersen MD Management plan update. Please see Dr. Lucio's admission note for details of history and initial evaluation. Briefly,67 yo female with non obstructive LAD disease on cath in 2009, remaining coronaries normal. Had recent onset of exertional chest and left scapular pain with some shortness of breath concerning for low work load angina. Biomarkers negative and EKG unremarkable. Discussed options for evaluation including stress test or repeat cath to look for progression of disease in LAD. Have elected to proceed with cardiac cath after this discussion. Risks and alternatives discussed. Plan cath today. * Marisol Muñoz RN - 06/11/2013 1:51 AM EST 0130- pt arrived via [facility] from [facility]. C/0 1-2/10 chest pain. NTG and heparin gtt's continued as previously infusing. Denies SOB. Pt ambulated to with SBA, CP increased to 6/10. MD @ bedside, MS04 given per order for CP. 0149- pain decreased from 6/10 to 2/10 with morphine. BP's on bilat arms obtained as below. Per MD,wean NTG, give ms04 for pain. 06/11/13 0110 06/11/13 0120 06/11/13 0130 Adult Vital Signs Heart Rate 55 -- -- BP 104/56 mmHg 94/56 mmHg -- BP Location (NBP) -- -- -- Resp 16 -- -- SpO2 99 % -- -- Oxygen Therapy O2 Device NC -- -- O2 Flow Rate (L/min) 2 L/min -- -- Pain Scale/Rating Pain Level 1 6 1 06/11/13 0149 06/11/13 0150 Adult Vital Signs Heart Rate -- -- BP 94/57 mmHg 97/55 mmHg BP Location (NBP) Left arm Right arm Resp -- -- SpO2 -- -- Oxygen Therapy O2 Device -- -- O2 Flow Rate (L/min) -- -- Pain Scale/Rating Pain Level 2 -- 0152- family @ bedside, updating on pt status. EKG obtained, labs drawn. Will continue to monitor. documented in this encounter H&P Notes * Shawanda Lucio - 06/11/2013 1:28 AM EST Cardiology Admission H&P Patient Name: Lou Mo Date of : 1945 Age: 67 y.o. Hospital Admit Date: 06/11/2013 Inpatient Attending: Jennifer Andersen MD PCP: JENNIFER FREITAS MD Presenting Diagnosis/Chief Complaint: UA/ chest pain and SOB with exertion. Active Problem List: Active Hospital Problems Diagnosis ??? Chest pain ??? Unstable angina Resolved Hospital Problems Diagnosis Date Resolved No resolved problems to display. History of Present Illness: HPI Ms. Mo in 76 y/o woman, a patient of Dr. Mabry with long history of atypical chest pain episodes she had 2 LHCs the first in 1995 showed normal coronaries and LV and the last LHC was 05/2010 showed non-obstructive disease, one time diagnosis of musculoskeletal chest pain was entertained; Normal LV in TTE in 10 months ago, DM type 2 on insulin; HTN; dyslipidemia and GERD was in usual stablestate of her health till 3 days earlier when she become fatigue, developed NARVAEZ while walking several hundred yards in steep driveway or talking care of her animals. In addition she had precordial chest pain sometimes radiating to her back or only back pain. She states that chest discomfort was getting worse and she went to [facility] today. Ms. Mo endorses nausea for last 3 day. She denies PND, orthopnea, palpitations, vomiting, fever or pedal edema. Overall symptoms presented by the patient are inconsistent. Vitals on presentation to the [facility]: BP 127/63 , HR 71 ,RR 15,T 99.4 , SaO2 100 % on RA. EKG was SR HR 65, TWI in III, no ST changes. CXR: no infiltrate of effusion. Lab: Troponin -I < 0.06 , CK 66 , K 4 , Cr 0.9 , WBC 7.7 , Hb 13 , Plt 142. The patient was given s/l nitroglycerin# 3 times , f/u by NTG gtt titrated to 30 mcg/min, ASA 324 mg , was loaded with 300 mg of clopidogrel, IV UFH bolus was given and IV UFH drip was started On transfer to [facility] the patient was chest pain free and hemodynamically stable. The patient intentionally lost 25 lb in 1 year with diet and she does not need Insulin any more. Family history: Mother had bypass surgery at 75, she is now in her 96 y/o . Father in his 70s of coronary disease. Social history: She is a , has a son and daughter who live nearby. The patient is taking care of her 96 y/o mother. Ms. Mo takes care of animals , she has one horse , 4 ponies and many chicken. She never smoked. 05/2010 Nonobstructive coronary artery disease. Normal left ventricular function (Calculated EF-68%) 12/1995 Normal coronary arteries. Normal left ventricular function ( Calculated EF-74%) TTE 07/2012. Normal LV function, no WMA EF 65%. 10/2003 Normal NST. Past Medical History: Past Medical History Diagnosis Date ??? Hypertension ??? GERD (gastroesophageal reflux disease) ??? Diabetes mellitus ??? Dyslipidemia Surgical History/Problems: Past Surgical History Procedure Date ??? Coronary angioplasty Significant Family History: Family History Problem Relation Age of Onset ??? Coronary Artery Disease Mother Social History: History Social History ??? Marital Status: Spouse Name: N/A Number of Children: N/A ??? Years of Education: N/A Occupational History ??? Not on file. Social History Main Topics ??? Smoking status: Former Smoker ??? Smokeless tobacco: Not on file ??? Alcohol Use: Yes social ??? Drug Use: ??? Sexually Active: Other Topics Concern ??? Not on file Social History Narrative ??? No narrative on file REVIEW OF SYSTEMS: Review of Systems Constitutional: Positive for fatigue. Respiratory: Positive for shortness of breath. Cardiovascular: Positive for chest pain. Gastrointestinal: Positive for nausea. Musculoskeletal: Positive for back pain and arthralgias. All other systems reviewed and are negative. Medications: Prescriptions prior to admission Medication Sig Dispense Refill ??? aspirin 81 mg EC tablet Take 81 mg by mouth daily. ??? metoprolol tartrate (LOPRESSOR) 50 mg tablet Take 50 mg by mouth 2 times daily. ??? rosuvastatin (CRESTOR) 40 mg tablet Take 40 mg by mouth daily. ??? diphenhydrAMINE (BENADRYL) 25 mg tablet Take 25 mg by mouth nightly as needed. ??? sitaGLIPtin (JANUVIA) 25 mg tablet Take 100 mg by mouth daily. Allergies: Allergies Allergen Reactions ??? Cis Free Text Allergy Hymenoptera (Bee) Stings. ??? Ibuprofen CIS - HIVES PHYSICAL EXAM: Last set of vital signs: BP 97/55 Pulse 55 Temp 36.6 ??C (97.9 ??F) (Oral) Resp 19 Ht 167.6cm (5' 6) Wt 81 kg (178 lb 9.2 oz) BMI 28.82 kg/m2 SpO2 98% Physical Exam Nursing note and vitals reviewed. Constitutional: Vital signs are normal. She appears well-developed and well-nourished. Pleasant , soft spoken woman in NAD. HENT: Head: Normocephalic and atraumatic. Eyes: Conjunctivae normal are normal. No foreign bodies found. Neck: Normal carotid pulses, no hepatojugular reflux and no JVD present. Carotid bruit is not present. Cardiovascular: Normal rate, regular rhythm, S1 normal, normal heart sounds and normal pulses. PMI is not displaced. No pedal edema Pulses of BP is equal in both arms Pulmonary/Chest: Effort normal and breath sounds normal. Exquisite precordial chest wall tenderness. Abdominal: Soft. There is no hepatosplenomegaly. There is no tenderness. There is no rebound and noCVA tenderness. Skin: Skin is warm and dry. Psychiatric: She has a normal mood and affect. Her speech is normal and behavior is normal. Diagnostics: I have independently visualized the following studies: EC06/11/13 1:30 , NSR 55, No significant ST/T changes. LABS: Recent Results (from the past 24 hour(s)) CARDIAC ENZYMES Component Value Range Troponin-T <0.03 <=0.03 ng/mL CK, Total 64 0 - 160 unit/L BMP W/FASTING GLUCOSE Component Value Range Glucose Fasting 128 (*) 65 - 99 mg/dL BUN 16 8 - 18 mg/dL Creatinine 0.82 0.70 - 1.20 mg/dL Sodium 141 135 - 145 mmol/L Potassium 3.8 3.5 - 5.0 mmol/L Chloride 108 (*) 98 - 107 mmol/L CO2 24 22 - 31 mmol/L Anion Gap 9 5 - 15 mmol/L Calcium 8.2 (*) 8.5 - 10.5 mg/dL Estimated GFR >60 >=60 MAGNESIUM Component Value Range Magnesium 0.78 0.69 - 1.07 mmol/L CBC (WITH DIFF) Component Value Range WBC 6.9 4.0 - 10.0 x10(3)/mcL RBC 3.75 (*) 3.93 - 5.22 x10(6)/mcL Hemoglobin 11.5 11.2 - 15.7 gm/dL Hematocrit 33.6 (*) 34.0 - 45.0 % MCV 89.6 79.0 - 94.0 fL MCH 30.7 26.6 - 32.2 pg MCHC 34.2 32.0 - 36.5 gm/dL Platelets 118 (*) 145 - 370 x10(3)/mcL RDWSD 41.4 35.0 - 46.0 fL RDWCV 12.8 10.9 - 14.4 % MPV 10.7 9.0 - 12.0 fL PROTHROMBIN TIME Component Value Range PT 14.8 12.0 - 15.0 sec INR 1.1 0.9 - 1.1 APTT Component Value Range PTT 156 (*) 25 - 35 sec PRO-BRAIN NATRIURETIC PEPTIDE Component Value Range ProBNP 358 (*) <=125 pg/mL DIFFERENTIAL, AUTOMATED Component Value Range Neutrophils % 50.1 34.0 - 71.0 % Neutr Abs (ANC) 3.45 1.50 - 6.30 x10(3)/mcL Lymphocytes % 41.4 19.0 - 53.0 % Lymphocytes Abs 2.9 1.0 - 3.6 x10(3)/mcL Monocytes % 6.4 4.0 - 13.0 % Monocyte Abs 0.4 0.2 - 1.0 x10(3)/mcL Eosinophils % 1.6 0.0 - 7.0 % Eosinophils Abs 0.1 0.0 - 0.5 x10(3)/mcL Basophils % 0.4 0.0 - 2.0 % Basophils Abs 0.0 0.0 - 0.2 x10(3)/mcL Immature Gran % 0.10 0.00 - 0.66 % Natividad Gran Abs 0.01 0.00 - 0.05 x10(3)/mcL TSH Component Value Range TSH 4.29 (*) 0.27 - 4.20 mcIU/mL ASSESSMENT: 76 y/o woman, with long history of atypical chest pain episodes, normal LV in TTE in 10 months ago,poorly controlled DM type 2 on insulin; HTN; dyslipidemia and GERD p/w 3 days of NARVAEZ and exertionalchest pain and yesterday she had rest chest pain which brought her to the [facility]. CAD, Unstable angina, History of atypical chest pain. she had 2 LHCs the first in 1995 showed normal coronaries and LV and the last LHC was 05/2010 showed non-obstructive disease and at one point musculoskeletal chest pain was considered. The patient had exquisite precordial chest wall tenderness. Relevant [facility] records and available transfer records, EKG and labs from the OSH were reviewed. Previous LHC: 05/2010 non-obstructive coronary artery disease. Normal left ventricular function (Calculated EF-68%) 12/1995 Normal coronary arteries. Normal left ventricular function ( Calculated EF-74%) EKG: sinus jhon 55. Cardiac biomarkers: OSH Troponin I < 0.3; [facility] Troponin- T < 0.03 , CK 64 In the OSH [facility] ED the patient was given ASA 324 mg , Clopidogrel load 300 mg , IV UFH was started , nitroglycerin IV, morphine IV for chest pain control Patient is chest pain is 1/10 now on NTG 30 mcg.min , she is hemodynamically stable. No evidence of overt heart failure or significant arrythmia at this point. The patient's YAHAIRA risk sore is 3 points ( intermediate) : 1. Presence of at least three risk factors for CHD (HTN, dyslipidemia, diabetes) 2. Severe angina in the preceding 24 hours 3. Use of aspirin in prior seven days YAHAIRA risk score correlates significantly 3 points (5%-13%) with increased numbers of events (all-cause mortality, new or recurrent UT, or severe recurrent ischemia requiring revascularization) at 14 days. Discussed Advanced Directives and Code Status. The patient wishes to be Full Code. TREATMENT PLAN: Admit to cardiology / [facility] Continue dual antiplatelet therapy ( ASA and Clopidogrel ) as recommended by the 2012 ACCF/AHA focused update of the guideline for the management of patients with UA/NSTEMI. Contunue anticoagulant therapy with IV UFH, Continue nitroglycerin gtt. Continue beta amy therapy with metoprolol, Continue statin, NPO after midnight Start IV fluids prior to PCI Maintain the serum potassium concentration above 4.0 meq/L and a serum magnesium concentration above 1 mmol/L. Continue trending cardiac biomarkers. Considering patient???s intermediate -risk YAHAIRA score, diabetes, she will benefit form early invasive strategy with angiography and subsequent revascularization if appropriate by anatomy. Initial noninvasive approach may also be appropriate with nuclear or echocardiographic imaging stress test. Check fasting lipids. HTN- continue metoprolol DM type 2-maintain glucose level < 180 mg/dL while avoiding hypoglycemia , check HbA1C in am Check TSH. DVT prophilaxis : patient is on IV UFH for the ACS. Provider: SHAWANDA LUCIO MD Provider #: [id number] documented in this encounter Procedure Notes * Provider, Scanning - 06/13/2013 8:48 AM ESTAssociated Order(s): SCAN DOC: CHARGE AUTHORIZER * Provider, Scanning - 06/13/2013 6:59 AM ESTAssociated Order(s): CARDIAC CATHETERIZATION * Provider, Scanning - 06/11/2013 12:19 PM ESTAssociated Order(s): CARDIAC CATHETERIZATION documented in this encounter Miscellaneous Notes * Miscellaneous - Provider, Scanning - 06/23/2013 8:15 PM EST * Miscellaneous - Provider, Scanning - 06/14/2013 1:25 PM EST * Miscellaneous - Provider, Scanning - 06/13/2013 8:12 PM EST * Miscellaneous - Provider, Scanning - 06/13/2013 8:48 AM EST * Miscellaneous - Provider, Scanning - 06/13/2013 8:48 AM EST * Discharge Summary - Baldo Puckett SORORITY SUPERVISOR - 06/12/2013 8:41 AM EST Images from the original note were not included. Inpatient Cardiology - Discharge Summary Patient Name: Lou Mo Patient Age: 67 y.o. Birthdate: 1945 Admit date: 06/11/2013 Discharge date: 06/12/2013 Attending Physician: Jennifer Andersen MD Discharge Diagnoses (Hospital Problems) and Secondary Diagnoses (Chronic Problems): Active Hospital Problems Diagnosis ??? Chest pain ??? Unstable angina Resolved Hospital Problems Diagnosis Date Resolved No resolved problems to display. Active Non-Hospital Problems Diagnosis ??? CIS - Chest Pain ??? CIS - DM ??? CIS - Dyslipidemia ??? CIS - GERD ??? CIS - HTN Operations/Major Procedures: Operations: CARDIAC CATHETERIZATION - 06/11/13 LM: normal LAD: mild diffuse disease prox LCx: normal RCA: normal Ramus: normal History of Presentation: Ms. Mo in 76 y/o woman, a patient of Dr. Mabry with long history of atypical chest pain episodes she had 2 LHCs the first in 1995 showed normal coronaries and LV and the last LHC was 05/2010 showed non-obstructive disease, one time diagnosis of musculoskeletal chest pain was entertained; Normal LV in TTE in 10 months ago, DM type 2 on insulin; HTN; dyslipidemia and GERD was in usual stablestate of her health till 3 days earlier when she become fatigue, developed NARVAEZ while walking several hundred yards in steep driveway or talking care of her animals. In addition she had precordial chest pain sometimes radiating to her back or only back pain. She states that chest discomfort was getting worse and she went to [facility] today. Ms. Mo endorses nausea for last 3 day. She denies PND, orthopnea, palpitations, vomiting, fever or pedal edema. Overall symptoms presented by the patient are inconsistent. Vitals on presentation to the [facility]: BP 127/63 , HR 71 ,RR 15,T 99.4 , SaO2 100 % on RA. EKG was SR HR 65, TWI in III, no ST changes. CXR: no infiltrate of effusion. Lab: Troponin -I < 0.06 , CK 66 , K 4 , Cr 0.9 , WBC 7.7 , Hb 13 , Plt 142. The patient was given s/l nitroglycerin# 3 times , f/u by NTG gtt titrated to 30 mcg/min, ASA 324 mg , was loaded with 300 mg of clopidogrel, IV UFH bolus was given and IV UFH drip was started On transfer to [facility] the patient was chest pain free and hemodynamically stable. The patient intentionally lost 25 lb in 1 year with diet and she does not need Insulin any more. Family history: Mother had bypass surgery at 75, she is now in her 96 y/o . Father in his 70s of coronary disease. Social history: She is a , has a son and daughter who live nearby. The patient is taking care of her 96 y/o mother. Ms. Mo takes care of animals , she has one horse , 4 ponies and many chicken. She never smoked. 05/2010 Nonobstructive coronary artery disease. Normal left ventricular function (Calculated EF-68%) 12/1995 Normal coronary arteries. Normal left ventricular function ( Calculated EF-74%) TTE 07/2012. Normal LV function, no WMA EF 65%. 10/2003 Normal NST. Hospital Course: Atypical Chest Pain, myocardial infarction excluded by enzymes Given the patient's risk factors, presentation which was consistent with unstable angina, it was decided to proceed with coronary angiography. The patient went to the cardiac laboratory sampler for a diagnostic cath which showed mild diffuse disease in her LAD and all other coronaries were normal. Right groin is clean, dry and intact. No hematoma or ooze. Intact distal pedal pulses. Her back pain persisted and a spine series was done that showed anterior lipping, likely arthritic changes. Final report of the spine series pending at discharge. Tylenol was somewhat helpful in managing her back pain. She was encouraged to follow up with her primary care provider. Hyperlipidemia Lipid profile showed total cholesterol 153 with LDL 100. Patient has been on Crestor 40 mg daily which is maximal statin dosing. The patient was encouraged to look at her diet to see if there are anyareas for improvement. Hypertension The patient's systolic blood pressure has been 100-120s on her current drug regimen. No changes were made during this hospitalization. Diabetes mellitus The patient's HA1c was 7.1. She continues on her home dosing of sitagliptin. Smoking cessation was advised & discussed.n/a The patient was discharged home in stable condition. Important Studies and Lab Data: Labs: Lab Results Component Value Date WBC 5.9 06/12/2013 HGB 11.9 06/12/2013 HCT 35.9 06/12/2013 PLATELET 115* 06/12/2013 Recent Labs Basename 06/11/13 0142 INR 1.1 Lab Results Component Value Date NA 140 06/12/2013 K 4.0 06/12/2013 CL 108* 06/12/2013 CO2 25 06/12/2013 BUN 14 06/12/2013 CREATININE 0.82 06/12/2013 Recent Labs Basename 06/11/13 0142 TSH 4.29* Recent Labs Basename 06/11/13 0805 HA1C 7.1* Recent Labs Basename 06/11/13 1315 06/11/13 0805 06/11/13 0142 CK 58 62 64 TROPONINT <0.03 <0.03 <0.03 Lab Results Component Value Date CHLPL 153 06/11/2013 HDL 39* 06/11/2013 CHOLHDL 3.9 06/11/2013 TRIG 127 06/11/2013 LDLDIRECT 100* 06/11/2013 Pending Studies and Lab Data: Final report on thoracic spine series Discharge Conditions/Prognosis: Ambulatory, independent Discharge to: Home Discharge Medications: Current Discharge Medication List Continued medications, unchanged Dose Details aspirin 81 mg EC tablet 81 mg Take 81 mg by mouth daily. metoprolol tartrate (LOPRESSOR) 50 mg tablet 50 mg Take 50 mg by mouth 2 times daily. rosuvastatin (CRESTOR) 40 mg tablet 40 mg Take 40 mg by mouth daily. diphenhydrAMINE (BENADRYL) 25 mg tablet 25 mg Take 25 mg by mouth nightly as needed. sitaGLIPtin (JANUVIA) 25 mg tablet 100 mg Take 100 mg by mouth daily. Updated Allergies/ADRs: Allergies Allergen Reactions ??? Cis Free Text Allergy Hymenoptera (Bee) Stings. ??? Ibuprofen CIS - HIVES Follow-up Recommendations for Providers: Check final report on thoracic spine series HA1c 7.1 on januvia alone Follow up back pain, likely not anginal equivalent Instructions Given to Patient at Discharge: Provider Instructions None General Instructions Anti-coagulation follow up: n/a Call your doctor if: Chest pain, shortness of breath, pain or swelling in legs occurs. If you have non-emergent questions between now and the time of your follow up appointments: During 8am-5pm Thursday through Thursday call [phone] to speak with a nurse in the cardiology clinic All other times call [phone] and ask to speak to the value stream manager directional drill operator. Return to work: One week Driving: No driving for 48 hours after catheterization. 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 Driver Dr Mabry as scheduled in the beginning of the year Home oxygen therapy: N/A Arrangements for VNA/home care: none Provider Contact Information: BALDO PUCKETT APRN [phone] Discharge References/Attachments: Discharge References/Attachments None Signed: Baldo Puckett APRN 06/12/2013 documented in this encounter Plan of Treatment Upcoming Encounters Date Type Department Care Team (Late st Contact Info) Description 07/06/2024 1:30 PM EST Office Visit Cardiology at [address] [phone] Delta Reyes MD [facility] [place] [address] documented as of this encounter Procedures Procedure Name Priority Date/Time Associated Diagnosis Comments CHARGE AUTHORIZER SCAN 06/13/2013 8:48 AM EST POCT GLUCOSE Routine 06/12/2013 11:43 AM EST POCT GLUCOSE Routine 06/12/2013 7:48 AM EST EKG 12-LEAD Routine 06/12/2013 7:07 AM EST Chest pain BMP W/FASTING GLUCOSE Routine 06/12/2013 3:43 AM EST DIFFERENTIAL, AUTOMATED Routine 06/12/20 13 3:43 AM EST CBC (WITH DIFF) Routine 06/12/2013 3:43 AM EST XR THORACIC SPINE 2 VIEWS Routine 06/11/2013 9:29 PM EST POCT GLUCOSE Routine 06/11/2013 8:02 PM EST POCT GLUCOSE Routine 06/11/2013 4:47 PM EST POCT GLUCOSE Routine 06/11/2013 1:19 PM EST CARDIAC ENZYMES [place] STAT 06/11/2013 1:15 PM EST CARDIAC CATHETERIZATION Routine 06/11/20 13 11:32 AM EST DIFFERENTIAL, AUTOMATED Routine 06/11/20 13 8:05 AM EST CARDIAC ENZYMES [place] STAT 06/11/2013 8:05 AM EST APTT STAT 06/11/2013 8:05 AM EST CBC (WITH DIFF) Routine 06/11/2013 8:05 AM EST TRIGLYCERIDE Routine 06/11/2013 8:05 AM EST LDL CHOLESTEROL, DIRECT Routine 06/11/20 13 8:05 AM EST HDL/CHOL PROFILE Routine 06/11/2013 8:05 AM EST LIPASE STAT 06/11/2013 8:05 AM EST HEMOGLOBIN A1C Routine 06/11/2013 8:05 AM EST GLUCOSE, FASTING Routine 06/11/2013 8:05 AM EST AMYLASE STAT 06/11/2013 8:05 AM EST BASIC METABOLIC PANEL STAT 06/11/2013 8:05 AM EST POCT GLUCOSE Routine 06/11/2013 8:02 AM EST BMP W/FASTING GLUCOSE STAT 06/11/2013 1:42 AM EST DIFFERENTIAL, AUTOMATED STAT 06/11/20 1:42 AM EST CARDIAC ENZYMES ([facility]) STAT 06/11/2013 1:42 AM EST APTT STAT 06/11/2013 1:42 AM EST PROTHROMBIN TIME STAT 06/11/2013 1:42 AM EST CBC (WITH DIFF) STAT 06/11/2013 1:42 AM EST TSH STAT 06/11/2013 1:42 AM EST PRO-BRAIN NATRIURETIC PEPTIDE STAT 06/11/2013 1:42 AM EST MAGNESIUM STAT 06/11/2013 1:42 AM EST EKG 12-LEAD STAT 06/11/2013 1:30 AM EST Chest pain documented in this encounter Results * SCAN DOC: CHARGE AUTHORIZER (06/13/2013 8:48 AM EST) Anatomical Region Laterality Modality Other Narrative 06/13/2013 9:47 AM EST Procedure Note Provider, Scanning - 06/13/2013 8:48 AM EST Scanning Provider MEDIA MGR SCAN EXT O RDR/RSLT * POCT Glucose (06/12/2013 11:43 AM EST) Glucose, POC 169 60 - 199 mg/dL [facility] Comment: Supplemental ranges: <110 mg/dL before meals <200 mg/dL all other times of the day Blood specimen (specimen) 06/12/2013 11:43 AM EST 06/12/2013 11:43 AM EST Jennifer Andersen MD POINT OF CARE TEST O RDERABLES Performing Organization Address [facility] Co de Phone Number [facility] * POCT Glucose (06/12/2013 7:48 AM EST) Glucose, POC 121 60 - 199 mg/dL [facility] Comment: Supplemental ranges: <110 mg/dL before meals <200 mg/dL all other times of the day Blood specimen (specimen) 06/12/2013 7:48 AM EST 06/12/2013 7:48 AM EST Jennifer Andersen MD POINT OF CARE TEST O RDERABLES Performing Organization Address [facility] Co de Phone Number [facility] * EKG 12 Lead (06/12/2013 7:07 AM EST) Ventricular rate 61 BPM MUSE SYSTEM Atrial Rate 61 BPM MUSE SYSTEM P-R Interval 172 ms MUSE SYSTEM QRS Duration 84 ms MUSE SYSTEM Q-T Interval 400 ms MUSE SYSTEM QTC Calculated (Bezet) 402 ms MUSE SYSTEM Calculated P [place] 33 degrees MUSE SYSTEM Calculated R [place] -8 degrees MUSE SYSTEM Calculated T [place] 33 degrees MUSE SYSTEM INTERPRETATION Normal sinus rhythm Unremarkable ECG morphology When compared with ECG of 11-JUN-2013 01:30, No significant change was found Confirmed by MD Otis, Kameron Schilling ([id number]) on 06/12/2013 11:14:49 AM MUSE SYSTEM 06/12/2013 7:07 AM EST 06/12/2013 11:14 AM EST Jennifer Andersen MD ECG ORDERABLES MUSE SYSTEM * Differential, Automated (06/12/2013 3:43 AM EST) Neutrophil % 57.8 34.0 - 71.0 % CERNER MILLENNIUM Neutrophil Absolute 3.42 1.50 - 6.30 x10(3)/mcL CERNER MILLENNIUM Lymph % 31.8 19.0 - 53.0 % CERNER MILLENNIUM Lymphocytes Abs 1.9 1.0 - 3.6 x10(3)/mcL CERNER MILLENNIUM Monocyte % 8.0 4.0 - 13.0 % CERNER MILLENNIUM Monocyte Abs 0.5 0.2 - 1.0 x10(3)/mcL CERNER MILLENNIUM Eos % 1.9 0.0 - 7.0 % CERNER MILLENNIUM Eosinophils Abs 0.1 0.0 - 0.5 x10(3)/mcL CERNER MILLENNIUM Basophil % 0.3 0.0 - 2.0 % CERNER MILLENNIUM Baso Absolute 0.0 0.0 - 0.2 x10(3)/mcL CERNER MILLENNIUM Immature Gran % 0.20 0.00 - 0.66 % [facility] MILLENNIUM Comment: Immature granulocytes(IG's)percentage and absolute count will include metamyelocytes, myelocytes, and promyelocytes. Blood smears from CBCs yielding IG's will be scanned manually for concordance. If this scan disagrees with the automated IG or if promyelocytes are noted, a manual differential will be performed. Immature Gran Absolute 0.01 0.00 - 0.05 x10(3)/mcL CERNER MILLENNIUM Blood specimen (specimen) 06/12/2013 3:43 AM EST 06/12/2013 3:55 AM EST Jennifer Andersen MD HEMATOLOGY ORDERABLE S CERNER MILLENNIUM * (ABNORMAL) BMP w/fasting Glucose (06/12/2013 3:43 AM EST) [facility] Glucose Fasting 122(H) 65 - 99 mg/dL CERNER MILLENNIUM Comment: ?Fasting* Glucose Interpretive Criteria Normal ?65-99 [...] of Diabetes Mellitus, Position Statement from the [place] Diabetes Association. ??Diabetes Care, Volume 33, Supplement 1, Aug 2009 Blood Urea Nitrogen 14 8 - 18 mg/dL CERNER MILLENNIUM Creatinine 0.82 0.70 - 1.20 mg/dL [facility]ERN[facility] MILLENNIUM Comment: Please note that the pediatric reference intervals supplied above were not validated [place] [facility] Results from pediatric patients should be interpreted in conjunction to the patient's age, height and muscle mass. Sodium 140 135 - 145 mmol/L CERNER MILLENNIUM Potassium 4.0 3.5 - 5.0 mmol/L CERN[facility] MILLENNIUM Comment: Please note: ??Patients with WBC >100,000 may have falsely elevated Potassium levels. ??For accurate Potassium quantification in these patients send serum separator tube (gold top) for subsequent determinations. ??Contact the Clinical Chemistry Laboratory if there are any questions. Chloride 108(H) 98 - 107 mmol/L CERNER MILLENNIUM Carbon Dioxide 25 22 - 31 mmol/L CERNER MILLENNIUM Anion Gap 7 5 - 15 mmol/L CERNER MILLENNIUM Calcium 8.7 8.5 - 10.5 mg/dL CERNER MILLENNIUM Est Glomerular Filtration Rate >60 >=60 CERNER MILLENNIUM Comment: This estimated GFR (eGFR) value was [...] the following links into your internet browser. http://www.nkdep.nih.gov/lab-evaluation.shtml http://www.kidney.org/professionals/ Blood specimen (specimen) 06/12/2013 3:43 AM EST 06/12/2013 3:55 AM EST Narrative Resulting Agency Comment Spec In Lab Jennifer Andersen MD CHEMISTRY ORDERABLES CERECTOR MILLDILEEPIUM * (ABNORMAL) CBC (with Diff) (06/12/2013 3:43 AM EST) White Blood Cell 5.9 4.0 - 10.0 x10(3)/mc L CERNER MILLENNIUM Red Blood Cell 3.92(L) 3.93 - 5.22 x10(6)/mc L CERNER MILLENNIUM Hemoglobin 11.9 11.2 - 15.7 gm/dL CERNER MILLENNIUM Hematocrit 35.9 34.0 - 45.0 % CERNER MILLENNIUM Mean Cell Volume 91.6 79.0 - 94.0 fL CERNER MILLENNIUM Mean Cell Hemoglobin 30.4 26.6 - 32.2 pg CERNER MILLENNIUM Mean Cell Hemoglobin Concentration 33.1 32.0 - 36.5 gm/dL CERNER MILLENNIUM Platelet 115(L) 145 - 370 x10(3)/mc L CERNER MILLENNIUM RDW Standard Deviation 43.1 35.0 - 46.0 fL CERNER MILLENNIUM RDW coefficient of variation 13.0 10.9 - 14.4 % CERNER MILLENNIUM Mean Platelet Volume 10.5 9.0 - 12.0 fL CERNER MILLENNIUM Blood specimen (specimen) 06/12/2013 3:43 AM EST 06/12/2013 3:55 AM EST Narrative Resulting Agency Comment Spec In Lab Jennifer Andersen MD HEMATOLOGY ORDERABLE S BEHZAD HUANGDILEEPIUM * XR spine thoracic 2 views (06/11/2013 9:29 PM EST) Anatomical Region Laterality Modality N/A Radiographic Melissa ging 06/11/2013 9:29 PM EST Narrative 06/12/2013 9:10 AM EST Examination THORACIC SPINE 2 VIEW/CORE Clinical History back pain for the past week Comparison None Technique Findings No spondylolisthesis. Multi focal mild to moderate degenerative endplate vertebral osteophytosis with mild, multi focal disc space narrowing, compatible with osteoarthritis. Abdominal Aortic vascular calcification. ?? Impression Procedure Note Huber Eduardo MD - 06/12/2013 Examination THORACIC SPINE 2 VIEW/CORE Clinical History back pain for the past week Comparison None Technique Findings No spondylolisthesis. Multi focal mild to moderate degenerative endplate vertebral osteophytosiswith mild, multi focal disc space narrowing, compatible with osteoarthritis. Abdominal Aortic vascular calcification. Impression Jennifer Andersen MD IMG DX ORDERABLES * POCT Glucose (06/11/2013 8:02 PM EST) Glucose, POC 153 60 - 199 mg/dL [facility] Comment: Supplemental ranges: <110 mg/dL before meals <200 mg/dL all other times of the day Blood specimen (specimen) 06/11/2013 8:02 PM EST 06/11/2013 8:02 PM EST Jennifer Andersen MD POINT OF CARE TEST O JENIFER Performing Organization Address [facility] de Phone Number [facility] * POCT Glucose (06/11/2013 4:47 PM EST) Glucose, POC 149 60 - 199 mg/dL [facility] Comment: Supplemental ranges: <110 mg/dL before meals <200 mg/dL all other times of the day Blood specimen (specimen) 06/11/2013 4:47 PM EST 06/11/2013 4:47 PM EST Jennifer Andersen MD POINT OF CARE TEST O RDERADEBI Performing Organization Address [facility] de Phone Number [facility] * POCT Glucose (06/11/2013 1:19 PM EST) Glucose, POC 116 60 - 199 mg/dL [facility] Comment: Supplemental ranges: <110 mg/dL before meals <200 mg/dL all other times of the day Blood specimen (specimen) 06/11/2013 1:19 PM EST 06/11/2013 1:19 PM EST Jennifer Andersen MD POINT OF CARE TEST O RDERABLES Performing Organization Address [facility] Co de Phone Number BEHZAD JUÁREZ * Cardiac Enzymes (06/11/2013 1:15 PM EST) Pathologist [facility] Troponin-T <0.03 <=0.03 ng/mL [facility] Comment: 0.03 ng/mL: Represents the 99th percentile upper reference limit for normals. >0.03 ng/mL: Elevated cardiac troponin T level indicative of myocardial damage. Diagnosis of acute, evolving or recent UT requires a typical rise and gradual fall [...] of suspicion is high. Reference: [Myocardial infarction redefined a consensus document of the Joint Society of Cardiology/[place] College of Cardiology Committee for the redefinition of myocardial infarction. Journal of the [place] College of Cardiology 2000; 36: 959-969] Creatine Kinase 58 0 - 160 unit/L [facility] Blood specimen (specimen) 06/11/2013 1:15 PM EST 06/11/2013 1:25 PM EST Narrative Resulting Agency Comment Spec In Lab Jennifer Andersen MD CHEMISTRY ORDERABLES Performing Organization Address [facility]/ZIP Co de Phone Number BEHZAD JUÁREZ * Cardiac Catheterization (06/11/2013 12:19 PM EST) Anatomical Region Laterality Modality Other Narrative 06/11/2013 12:19 PM EST Procedure Note Provider, Scanning - 06/11/2013 12:19 PM EST Jennifer Andersen MD CARDIAC CATH ORDERAB LES * Cardiac Catheterization (06/11/2013 11:32 AM EST) Anatomical Region Laterality Modality Other Narrative 06/13/2013 2:10 PM EST Procedure Note Provider, Scanning - 06/13/2013 6:59 AM EST Jennifer Andersen MD CARDIAC CATH ORDERAB LES * Amylase (06/11/2013 8:05 AM EST) Amylase 28 28 - 100 unit/L CERNER MILLENNIUM Blood specimen (specimen) 06/11/2013 8:05 AM EST 06/11/2013 8:28 AM EST Narrative Resulting Agency Comment Spec In Lab Jennifer Andersen MD CHEMISTRY ORDERABLES Performing Organization Address City/[facility]/ZIP Co de Phone Number CERNER MILLENNIUM * Lipase (06/11/2013 8:05 AM EST) Lipase 26 0 - 60 unit/L CERNER MILLENNIUM Blood specimen (specimen) 06/11/2013 8:05 AM EST 06/11/2013 8:28 AM EST Narrative Resulting Agency Comment Spec In Lab Jennifer Andersen MD CHEMISTRY ORDERABLES [facility]ERNER MILLENNIUM * Differential, Automated (06/11/2013 8:05 AM EST) Neutrophil % 47.2 34.0 - 71.0 % CERNER MILLENNIUM Neutrophil Absolute 2.82 1.50 - 6.30 x10(3)/mcL CERNER MILLENNIUM Lymph % 44.1 19.0 - 53.0 % CERNER MILLENNIUM Lymphocytes Abs 2.6 1.0 - 3.6 x10(3)/mcL CERNER MILLENNIUM Monocyte % 7.0 4.0 - 13.0 % CERNER MILLENNIUM Monocyte Abs 0.4 0.2 - 1.0 x10(3)/mcL CERNER MILLENNIUM Eos % 1.2 0.0 - 7.0 % CERNER MILLENNIUM Eosinophils Abs 0.1 0.0 - 0.5 x10(3)/mcL CERNER MILLENNIUM Basophil % 0.3 0.0 - 2.0 % CERNER MILLENNIUM Baso Absolute 0.0 0.0 - 0.2 x10(3)/mcL CERNER MILLENNIUM Immature Gran % 0.20 0.00 - 0.66 % CERNER MILLENNIUM Comment: Immature granulocytes(IG's)percentage and absolute count will include metamyelocytes, myelocytes, and promyelocytes. Blood smears from CBCs yielding IG's will be scanned manually for concordance. If this scan disagrees with the automated IG or if promyelocytes are noted, a manual differential will be performed. Immature Gran Absolute 0.01 0.00 - 0.05 x10(3)/mcL CERNER MILLENNIUM Blood specimen (specimen) 06/11/2013 8:05 AM EST 06/11/2013 8:27 AM EST Shawanda Lucio MD HEMATOLOGY ORDER JOSÉ [facility] * (ABNORMAL) Basic Metabolic Panel (non-fasting) (06/11/2013 8:05 AM EST) Glucose 120 60 - 199 mg/dL [facility]ERNER MILLENNIUM Comment:Diabetes: >=200 mg/d L plus symptoms Blood Urea Nitrogen 13 8 - 18 mg/dL CERNER MILLENNIUM Creatinine 0.80 0.70 - 1.20 mg/dL CERNER MILLENNIUM Comment: Please note that the pediatric reference intervals supplied above were not validated [place] [facility] Results from pediatric patients should be interpreted in conjunction to the patient's age, height and muscle mass. Sodium 143 135 - 145 mmol/L CERNER MILLENNIUM Potassium 3.8 3.5 - 5.0 mmol/L CERN[facility] MILLENNIUM Comment: Please note: ??Patients with WBC >100,000 may have falsely elevated Potassium levels. ??For accurate Potassium quantification in these patients send serum separator tube (gold top) for subsequent determinations. ??Contact the Clinical Chemistry Laboratory if there are any questions. Chloride 108(H) 98 - 107 mmol/L CERNER MILLENNIUM Carbon Dioxide 25 22 - 31 mmol/L CERNER MILLENNIUM Anion Gap 10 5 - 15 mmol/L CERNER MILLENNIUM Calcium 8.3(L) 8.5 - 10.5 mg/dL CERNER MILLENNIUM Est Glomerular Filtration Rate >60 >=60 CERNER MILLENNIUM Comment: This estimated GFR (eGFR) value was [...] the following links into your internet browser. http://www.nkdep.nih.gov/lab-evaluation.shtml http://www.kidney.org/professionals/ Blood specimen (specimen) 06/11/2013 8:05 AM EST 06/11/2013 8:27 AM EST Narrative Resulting Agency Comment Spec In Lab Shawanda Lucio MD CHEMISTRY ORDERA BLES Performing Organization Address [facility] Co de Phone Number BEHZAD ProxeonIUM * (ABNORMAL) APTT (06/11/2013 8:05 AM EST) Partial Thromboplastin Time 104(H) 25 - 35 sec CERNER MILLENNIUM Comment: Recommended therapeutic PTT range for full dose unfractionated heparin is 80-114 seconds. Blood specimen (specimen) 06/11/2013 8:05 AM EST 06/11/2013 8:27 AM EST Narrative Resulting Agency Comment Spec In Lab Jennifer Andersen MD HEMATOLOGY ORDERABLE S Performing Organization Address City/[facility] Co de Phone Number BEHZAD WikiaENNIUM * (ABNORMAL) CBC (with Diff) (06/11/2013 8:05 AM EST) White Blood Cell 6.0 4.0 - 10.0 x10(3)/mc L [facility] Red Blood Cell 3.84(L) 3.93 - 5.22 x10(6)/mc L [facility] MILL[facility]NIUM Hemoglobin 11.6 11.2 - 15.7 gm/dL [facility] Hematocrit 34.7 34.0 - 45.0 % [facility] MILLENNIUM Mean Cell Volume 90.4 79.0 - 94.[address] [facility] MILLENNIUM Mean Cell Hemoglobin 30.2 26.6 - 32.2 pg [facility] Mean Cell Hemoglobin Concentration 33.4 32.0 - 36.5 gm/dL [facility] Platelet 110(L) 145 - 370 x10(3)/mc L [facility] MILLENNIUM RDW Standard Deviation 42.3 35.0 - 46.0 fL CERNER MILLENNIUM RDW coefficient of variation 13.0 10.9 - 14.4 % CERNER MILLENNIUM Mean Platelet Volume 10.7 9.0 - 12.[address] [facility] MILLENNIUM Blood specimen (specimen) 06/11/2013 8:05 AM EST 06/11/2013 8:27 AM EST Narrative Resulting Agency Comment Spec In Lab Jennifer Andersen MD HEMATOLOGY ORDERABLE S [facility] * (ABNORMAL) Glucose, fasting (06/11/2013 8:05 AM EST) Pathologist [facility] Glucose Fasting 120(H) 65 - 99 mg/dL [facility] MILLENNIUM Comment: ?Fasting* Glucose Interpretive Criteria Normal ?65-99 [...] of Diabetes Mellitus, Position Statement from the [place] Diabetes Association. ??Diabetes Care, Volume 33, Supplement 1, Aug 2009 Blood specimen (specimen) 06/11/2013 8:05 AM EST 06/11/2013 8:27 AM EST Narrative Resulting Agency Comment Spec In Lab Shawanda Lucio MD CHEMISTRY ORDERA BLETosha Performing Organization Address City/[facility] Co de Phone Number [facility] * Triglyceride (06/11/2013 8:05 AM EST) Triglyceride 127 <=149 mg/dL [facility] Comment: Reference Range: Normal triglycerides: ??<150 mg/dL Borderline high: ??150-199 mg/dL High: ??200-499 mg/dL Very high: ??>zd=304 mg/dL LUIS F 2000; 285(19):7518-1272 Blood specimen (specimen) 06/11/2013 8:05 AM EST 06/11/2013 8:27 AM EST Narrative Resulting Agency Comment Spec In Lab Shawanda Lucio MD CHEMISTRY ORDERA BLETosha Performing Organization Address [facility] Co de Phone Number [facility] * (ABNORMAL) HDL/Cholesterol Profile (06/11/2013 8:05 AM EST) Cholesterol, Total 153 <=199 mg/dL [facility] Comment: Recommendations of the NCEP Adult Treatment Panel for the following risk cutoff thresholds for the [place] population: Desirable: <200 mg/dL Borderline High: 200-239 mg/dL High: > or = 240 mg/dL HDL Cholesterol 39(L) >=40 mg/dL [facility] Comment: Reference range: ??Low HDL: ?? < 40 mg/dL ??Normal: ?40-60 mg/dL ??Desirable: > 60 mg/dL LUIS F 2001; 285(19):9792-7178 Cholesterol/HDL Ratio 3.9 ratio [facility] Comment: A Cholesterol to HDL ratio below 4:1 is desirable. ??Studies suggest that increased CAD risk occurs at ratios above 5 for females and above 6 for men. ? [place] Heart Association ??(http://www.americanheart.org) ? Maura Int Med, 1994; 121:641 ? AM J Med, 1998; 105(1A):48S Blood specimen (specimen) 06/11/2013 8:05 AM EST 06/11/2013 8:27 AM EST Narrative Resulting Agency Comment Spec In Lab Shawanda Lucio MD CHEMISTRY JOSE CARRERA Performing Organization Address [facility] Co de Phone Number [facility] * (ABNORMAL) LDL Cholesterol, Direct (06/11/2013 8:05 AM EST) LDL Cholesterol, Direct 100(H) <=99 mg/dL [facility] Comment: The National Cholesterol Education Program (NCEP) has set the following guidelines for LDL Cholesterol: Reference range: ?? Optimal: ?<100 mg/dL ?? Near Optimal/Above Optimal: ?? 100-129 mg/dL ?? Borderline high: ?130-159 mg/dL ?? High: ? 160-189 mg/dL ?? Very high: ?>zo=707 mg/dL LUIS F 2001: 285(19):3457-1456 Blood specimen (specimen) 06/11/2013 8:05 AM EST 06/11/2013 8:27 AM EST Narrative Resulting Agency Comment Spec In Lab Shawanda Lucio MD CHEMISTRY JOSE CARRERA Performing Organization Address [facility] Co de Phone Number [facility] * (ABNORMAL) Hemoglobin A1c (06/11/2013 8:05 AM EST) Hemoglobin A1c 7.1(H) 4.3 - 6.1 % [facility] Comment: The [place] Diabetes Association (ADA) has stated that HbA1c values >or= 6.5% are consistent with the diagnosis of diabetes mellitus. In the absence of hyperglycemia (i.e. plasma glucose > 200 mg/dL) or classic symptoms of hyperglycemia a repeat measurement of HbA1c should be performed on a separate sample to confirm the diagnosis. The ADA also considers an HbA1c value between 5.7% and 6.4% to be consistent with an increased risk of diabetes (prediabetes). Patients with an HbA1c value in this range should be counseled about their increased risk of progressing to diabetes. Reference: Position Statement: Standards of Medical Care in Diabetes 2013. Diabetes Care 2013:36;suppl 1:S11-S66. Estimated Average Glucose 157 mg/dL [facility] Comment: eAG equivalents for HbA1c percentages: HbA1c(%) ?eAG(mg/dL) 6.0 ?126 6.5 ?140 7.0 ?154 7.5 ?169 8.0 ?183 8.5 ?197 9.0 ?212 9.5 ?226 10.0 ? 240 Limitations: The eAG calculation has not been validated on women, individuals below 18 years old and above 70 years old, and individuals with hemoglobinopathies. Additional resources are available on the ADA website: ??http://professional.diabetes.org/glucosecalculator.aspx Shekhar BILLINGS, Delaney J, Giovanni R, et al. ??Translating the A1C assay into estimated average glucose values. ??Diabetes Care 2008:31(8):6050-7694. Blood specimen (specimen) 06/11/2013 8:05 AM EST 06/11/2013 8:27 AM EST Narrative Resulting Agency Comment Spec In Lab Shawanda Lucio MD CHEMISTRY ORDERA BLES Performing Organization Address [facility] Co de Phone Number [facility] * Cardiac Enzymes (06/11/2013 8:05 AM EST) Troponin-T <0.03 <=0.03 ng/mL [facility] Comment: 0.03 ng/mL: Represents the 99th percentile upper reference limit for normals. >0.03 ng/mL: Elevated cardiac troponin T level indicative of myocardial damage. Diagnosis of acute, evolving or recent UT requires a typical rise and gradual fall [...] of suspicion is high. Reference: [Myocardial infarction redefined a consensus document of the Joint Society of Cardiology/[place] College [employer] Cardiology Committee for the redefinition of myocardial infarction. Journal of the [place] College [employer]iology 2000; 36: 959-969] Creatine Kinase 62 0 - 160 unit/L [facility] Blood specimen (specimen) 06/11/2013 8:05 AM EST 06/11/2013 8:27 AM EST Narrative Resulting Agency Comment Spec In Lab Jennifer Andersen MD CHEMISTRY ORDERABLES Performing Organization Address [facility] Co de Phone Number [facility] * POCT Glucose (06/11/2013 8:02 AM EST) Glucose, POC 120 60 - 199 mg/dL [facility] Comment: Supplemental ranges: <110 mg/dL before meals <200 mg/dL all other times of the day Blood specimen (specimen) 06/11/2013 8:02 AM EST 06/11/2013 8:02 AM EST Jennifer Andersen MD POINT OF CARE TEST O RDERABLES [facility] * (ABNORMAL) TSH (06/11/2013 1:42 AM EST) Thyroid Stimulating Hormone 4.29(H) 0.27 - 4.20 mcIU/mL [facility] Blood specimen (specimen) 06/11/2013 1:42 AM EST 06/11/2013 1:49 AM EST Narrative Resulting Agency Comment Spec In Lab Shawanda Lucio MD CHEMISTRY ORDERA BLES Performing Organization Address [facility] Co de Phone Number [facility] * Differential, Automated (06/11/2013 1:42 AM EST) Neutrophil % 50.1 34.0 - 71.0 % [facility] MILLENNI[facility] Neutrophil Absolute 3.45 1.50 - 6.30 x10(3)/mcL [facility]ENNI[facility] Lymph % 41.4 19.0 - 53.0 % [facility] MILLENNI[facility] Lymphocytes Abs 2.9 1.0 - 3.6 x10(3)/mcL [facility]ENNI[facility] Monocyte % 6.4 4.0 - 13.0 % [facility] MILLENNIUM Monocyte Abs 0.4 0.2 - 1.0 x10(3)/mcL [facility]ILLENNI[facility] Eos % 1.6 0.0 - 7.0 % [facility]ERNER MILLENNIUM Eosinophils Abs 0.1 0.0 - 0.5 x10(3)/mcL [facility] MILLENNIUM Basophil % 0.4 0.0 - 2.0 % [facility]ERN[facility] MILLENNIUM Baso Absolute 0.0 0.0 - 0.2 x10(3)/mcL [facility] MILLENNI[facility] Immature Gran % 0.10 0.00 - 0.66 % [facility] Comment: Immature granulocytes(IG's)percentage and absolute count will include metamyelocytes, myelocytes, and promyelocytes. Blood smears from CBCs yielding IG's will be scanned manually for concordance. If this scan disagrees with the automated IG or if promyelocytes are noted, a manual differential will be performed. Immature Gran Absolute 0.01 0.00 - 0.05 x10(3)/mcL [facility] Blood specimen (specimen) 06/11/2013 1:42 AM EST 06/11/2013 1:48 AM EST Shawanda Lucio MD HEMATOLOGY ORDER JOSÉ Performing Organization Address [facility] Phone Number [facility] * (ABNORMAL) pro-Brain Natriuretic Peptide (06/11/2013 1:42 AM EST) NT-proBNP 358(H) <=125 pg/mL [facility] Blood specimen (specimen) 06/11/2013 1:42 AM EST 06/11/2013 1:48 AM EST Narrative Resulting Agency Comment Spec In Lab Shawanda Lucio MD CHEMISTRY ORDERA BLES Performing Organization Address [facility] Phone Number [facility] * (ABNORMAL) APTT (06/11/2013 1:42 AM EST) Partial Thromboplastin Time 156(Criti rashid) 25 - 35 sec [facility] Comment: Called by: ZO, Read back by: DAVON MUÑOZ, Date/Time:06/11/13 02:16. Recommended therapeutic PTT range for full dose unfractionated heparin is 80-114 seconds. Blood specimen (specimen) 06/11/2013 1:42 AM EST 06/11/2013 1:48 AM EST Narrative Resulting Agency Comment Spec In Lab Shawanda Lucio MD HEMATOLOGY ORDER JOSÉ Performing Organization Address [facility] Phone Number [facility] * Prothrombin Time (06/11/2013 1:42 AM EST) Prothrombin Time 14.8 12.0 - 15.0 sec [facility] Comment: [facility] Transfusion Committee Guidelines: INR less than 2.0, PTT less than OR equal to 43.5 seconds, or Fibrinogen greater than or equal to 100 mg/dl indicate adequate procoagulant activity for hemostasis in patients without underlying bleeding disorders. International Normalization Ratio 1.1 0.9 - 1.1 [facility] MILLENNIUM Blood specimen (specimen) 06/11/2013 1:42 AM EST 06/11/2013 1:48 AM EST Narrative Resulting Agency Comment Spec In Lab Shawanda Lucio MD HEMATOLOGY ORDER JOSÉ Performing Organization Address City/[facility]/ZIP Co de Phone Number [facility] * (ABNORMAL) CBC (with Diff) (06/11/2013 1:42 AM EST) White Blood Cell 6.9 4.0 - 10.0 x10(3)/mc L [facility] Red Blood Cell 3.75(L) 3.93 - 5.22 x10(6)/mc L [facility] MILLENNIUM Hemoglobin 11.5 11.2 - 15.7 gm/dL [facility] MILLENNIUM Hematocrit 33.6(L) 34.0 - 45.0 % CERNER MILLENNIUM Mean Cell Volume 89.6 79.0 - 94.0 fL [facility]ERN[facility] MILLENNIUM Mean Cell Hemoglobin 30.7 26.6 - 32.2 pg CERNER MILLENNIUM Mean Cell Hemoglobin Concentration 34.2 32.0 - 36.5 gm/dL [facility]ERNER MILLENNIUM Platelet 118(L) 145 - 370 x10(3)/mc L [facility]ERNER MILLENNIUM RDW Standard Deviation 41.4 35.0 - 46.0 fL CERNER MILLENNIUM RDW coefficient of variation 12.8 10.9 - 14.4 % CERNER MILLENNIUM Mean Platelet Volume 10.7 9.0 - 12.0 fL [facility] Blood specimen (specimen) 06/11/2013 1:42 AM EST 06/11/2013 1:48 AM EST Narrative Resulting Agency Comment Spec In Lab Shawanda Lucio MD HEMATOLOGY ORDER JOSÉ [facility] * Magnesium (06/11/2013 1:42 AM EST) Magnesium 0.78 0.69 - 1.07 mmol/L [facility] Blood specimen (specimen) 06/11/2013 1:42 AM EST 06/11/2013 1:48 AM EST Narrative Resulting Agency Comment Spec In Lab Shawanda Lucio MD CHEMISTRY ORDERA DEBI [facility] * (ABNORMAL) BMP w/fasting Glucose (06/11/2013 1:42 AM EST) Glucose Fasting 128(H) 65 - 99 mg/dL [facility] Comment: ?Fasting* Glucose Interpretive Criteria Normal ?65-99 [...] of Diabetes Mellitus, Position Statement from the [place] Diabetes Association. ??Diabetes Care, Volume 33, Supplement 1, Aug 2009 Blood Urea Nitrogen 16 8 - 18 mg/dL [facility] Creatinine 0.82 0.70 - 1.20 mg/dL [facility] Comment: Please note that the pediatric reference intervals supplied above were not validated at [facility] Results from pediatric patients should be interpreted in conjunction to the patient's age, height and muscle mass. Sodium 141 135 - 145 mmol/L [facility]ILLENNI[facility] Potassium 3.8 3.5 - 5.0 mmol/L [facility] Comment: Please note: ??Patients with WBC >100,000 may have falsely elevated Potassium levels. ??For accurate Potassium quantification in these patients send serum separator tube (gold top) for subsequent determinations. ??Contact the Clinical Chemistry Laboratory if there are any questions. Chloride 108(H) 98 - 107 mmol/L [facility] Carbon Dioxide 24 22 - 31 mmol/L [facility]ILLEN[facility] Anion Gap 9 5 - 15 mmol/L [facility] MILLENNI[facility] Calcium 8.2(L) 8.5 - 10.5 mg/dL [facility] MILLENNIUM Est Glomerular Filtration Rate >60 >=60 [facility] Comment: This estimated GFR (eGFR) value was [...] the following links into your internet browser. http://www.nkdep.nih.gov/lab-evaluation.shtml http://www.kidney.org/professionals/ Blood specimen (specimen) 06/11/2013 1:42 AM EST 06/11/2013 1:48 AM EST Narrative Resulting Agency Comment Spec In Lab Shawanda Lucio MD CHEMISTRY ORDERA BLES [facility] * Cardiac Enzymes (06/11/2013 1:42 AM EST) Troponin-T <0.03 <=0.03 ng/mL [facility] Comment: 0.03 ng/mL: Represents the 99th percentile upper reference limit for normals. >0.03 ng/mL: Elevated cardiac troponin T level indicative of myocardial damage. Diagnosis of acute, evolving or recent UT requires a typical rise and gradual fall [...] of suspicion is high. Reference: [Myocardial infarction redefined a consensus document of the Joint Society of Cardiology/[place] [employer]iology Committee for the redefinition of myocardial infarction. Journal of the [place] College of Cardiology 2000; 36: 959-969] Creatine Kinase 64 0 - 160 unit/L [facility] Blood specimen (specimen) 06/11/2013 1:42 AM EST 06/11/2013 1:48 AM EST Narrative Resulting Agency Comment Spec In Lab Jennifer Andersen MD CHEMISTRY ORDERABLES Performing Organization Address City/[facility]/ZIP Co de Phone Number [facility] * EKG 12 Lead (06/11/2013 1:30 AM EST) Ventricular rate 55 BPM MUSE SYSTEM Atrial Rate 55 BPM MUSE SYSTEM P-R Interval 186 ms MUSE SYSTEM QRS Duration 90 ms MUSE SYSTEM Q-T Interval 440 ms MUSE SYSTEM QTC Calculated (Bezet) 420 ms MUSE SYSTEM Calculated P [place] 29 degrees MUSE SYSTEM Calculated T [place] 32 degrees MUSE SYSTEM INTERPRETATION Sinus bradycardia Otherwise normal ECG When compared with ECG of 02-MAY-2010 15:49, No significant change was found Confirmed by MD Ganesh, Jennifer ([id number]) on 06/11/2013 3:27:40 PM MUSE SYSTEM 06/11/2013 1:30 AM EST 06/11/2013 3:27 PM EST Shawanda Lucio MD ECG ORDERABLES MUSE SYSTEM documented in this encounter Visit Diagnoses Not on filedocumented in this encounter Administered Medications Inactive Administered Medications - up to 3 most recent administrations Medication Order MAR Action Action Date Dose Rate Site aspirin EC tablet 325 mg 325 mg, Oral, DAILY, First dose on 06/11/13 at 0900, Until Discontinued, Routine Given 06/12/2013 8:25 AM EST 325 mg Given 06/11/2013 9:00 AM EST 325 mg clopidogrel (PLAVIX) tablet 75 mg 75 mg, Oral, DAILY, First dose on 06/11/13 at 0900, Until Discontinued, Routine Given 06/12/2013 8:24 AM EST 75 mg Given 06/11/2013 9:00 AM EST 75 mg diaZEPam (VALIUM) tablet 5 mg 5 mg, Oral, ONCE, 1 dose, On 06/11/13 at 0900, Cath (Day of Procedure), Routine Given 06/11/2013 9:00 AM EST 5 mg diphenhydrAMINE (BENADRYL) capsule 25 mg 25 mg, Oral, ONCE, 1 dose, On 06/11/13 at 0900, Cath (Day of Procedure), Routine Given 06/11/2013 9:00 AM EST 25 mg fentaNYL 50mcg/mL injection ONCE PRN, Starting on 06/11/13 at 1058, Until 06/11/13 at 1132, Pain, Intra-Operative (Intra-Procedure), Routine Given 06/11/2013 10:58 AM EST 25 mcg heparin (porcine) 25,000 unit/500 mL (50 unit/mL) infusion 1 dose, Starting on 06/11/13 at 0102, Until 06/11/13 at 0129, MARISOL PERAZA: cabinet override heparin 25,000 units in dextrose 5% 500 mL infusion 350-7,000 Units/hr (rounded to 7-140 mL/hr), Intravenous, CONTINUOUS, Starting on 06/11/13 at 0145, Until 06/11/13 at 1137, Patient Weight 85-89 kg Initial dose - 1,000 units/hr = 20 mL/hr PTT less than 60 sec - increase by 350 units/hr = 7 mL/hr PTT 60-79 sec- increase by 150 units/hr = 3 mL/hr PTT 80-114 sec - no change PTT 115-129 sec - decrease by 100 units/hr = 2 mL/hr PTT 130-145 sec - stop infusion for 30 min then decrease by 150 units/hr = 3 mL/hr PTT greater than 145 sec - stop infusion for 60 min then decrease by 250 units/hr = 5 mL/hr PTT greater than 145 sec X 2 - call dye house worker See Bolus dosing guidance for aPTT values less than 80 seconds under PRN medications, Routine Rate/Dose Change 06/11/2013 3:18 AM EST 750 Units/hr 15 mL/hr New Bag 06/11/2013 1:15 AM EST 1,000 Units/hr 20 mL/hr insulin aspart (novoLOG) PEN injection 3-12 Units 3-12 Units, Subcutaneous, 4 TIMES DAILY BEFORE MEALS & NIGHTLY, First dose on 06/11/13 at 0145, Until Discontinued, CORRECTION BOLUS Resistant to insulin obese patient and TDD (total daily dose of all insulin needed to achieve glycemic control) greater than 60 units BG 140 - 160 Give 3 units BG 161 - 200 Give 6 units BG 201 - 240 Give 9 units BG greater than 240, give 12 units and recheck BG in 2 hours. If BG remains greater than 240, repeat 12 units (no more than three times) & call for new basal insulin orders. If less than 240 after two hours, give no insulin and resume prior schedule. , Routine Given 06/11/2013 8:53 PM EST 3 Units Given 06/11/2013 5:30 PM EST 3 Units iohexol (OMNIPAQUE) 350 mg iodine/mL injection ONCE PRN, Starting on 06/11/13 at 1128, Until 06/11/13 at 1132, Per Protocol, Cath (Intra-Procedure), Routine Given 06/11/2013 11:28 AM EST 40 mLs lidocaine (XYLOCAINE) 10 mg/mL (1 %) injection ONCE PRN, Starting on 06/11/13 at 1058, Until 06/11/13 at 1132, Cath (Intra-Procedure), Routine Given 06/11/2013 10:58 AM EST 100 mg metoprolol tartrate (LOPRESSOR) tablet 25 mg 25 mg, Oral, EVERY 6 HOURS SCHEDULED, First dose on 06/11/13 at 0145, Until Discontinued, Hold if SBP < 100 or HR < 60, Routine Given 06/12/2013 12:26 AM EST 25 mg midazolam (VERSED) injection ONCE PRN, Starting on 06/11/13 at 1058, Until 06/11/13 at 1132, Sleep, Cath (Intra-Procedure), Routine Given 06/11/2013 10:58 AM EST 1 mg morphine 2 mg/mL carpuject 2 mg 2 mg, Intravenous, EVERY 4 HOURS PRN, Starting on 06/11/13 at 0109, Until 06/12/13 at 1415, Pain, Routine Given 06/11/2013 1:20 AM EST 2 mg nitroGLYcerin 50 mg in dextrose 5% 250 mL infusion 0-100 mcg/min (rounded to 0-30 mL/hr), Intravenous, CONTINUOUS, Starting on 06/11/13 at 0145, Until 06/11/13 at 1137, Maximum dose: 200 mcg/min, Routine Rate/Dose Change 06/11/2013 2:32 AM EST 10 mcg/min 3 mL/hr Rate/Dose Change 06/11/2013 1:49 AM EST 20 mcg/min 6 mL/hr New Bag 06/11/2013 1:15 AM EST 30 mcg/min 9 mL/hr nitroGLYcerin 50 mg/250 mL (200 mcg/mL) infusion 1 dose, Starting on 06/11/13 at 0102, Until 06/11/13 at 0129, MARISOL PERAZA: cabinecharles override rosuvastatin (CRESTOR) tablet 40 mg 40 mg, Oral, EVERY EVENING, First dose on 06/11/13 at 1700, Until Discontinued, Routine Given 06/11/2013 5:35 PM EST 40 mg sodium chloride 0.9 % flush 5 mL 5 mL, Intravenous, EVERY 12 HOURS, First dose on 06/11/13 at 0145, Until Discontinued Given 06/12/2013 1:45 AM EST 5 mLs Given 06/11/2013 1:45 PM EST 5 mLs Given 06/11/2013 1:45 AM EST 5 mLs sodium chloride 0.9% infusion 200 mL/hr, Intravenous, CONTINUOUS, Starting on 06/11/13 at 0900, Until 06/11/13 at 1137, Cath (Day of Procedure) New Bag 06/11/2013 8:40 AM EST 200 mL/hr 200 mL/hr sodium chloride 0.9% infusion 125 mL/hr, Intravenous, CONTINUOUS, Starting on 06/11/13 at 1200, Until 06/11/13 at 1759 New Bag 06/11/2013 12:00 PM EST 125 mL/hr 125 mL/hr documented in this encounter Active and Recently Administered Medications Times are shown in EST. Scheduled Medication Order 06/10/2013 06/11/2013 06/12/2013 aspirin EC tablet 325 mg (CANCELED) 325 mg, Oral, DAILY, First dose on 06/11/13 at 0900, Until Discontinued, Routine 0900 (Given - Provider: Rahul Perez, RN) 0825 (Given - Provider: Pilar Patel RN) clopidogrel (PLAVIX) tablet 75 mg (CANCELED) 75 mg, Oral, DAILY, First dose on 06/11/13 at 0900, Until Discontinued, Routine 0900 (Given - Provider: Rahul Perez RN) 0824 (Given - Provider: Pilar Patel, CHRISTINA) diaZEPam (VALIUM) tablet 5 mg (COMPLETED) 5 mg, Oral, ONCE, 1 dose, On 06/11/13 at 0900, Cath (Day of Procedure), Routine 0900 (Given - Provider: Rahul Perez RN) diphenhydrAMINE (BENADRYL) capsule 25 mg (COMPLETED) 25 mg, Oral, ONCE, 1 dose, On 06/11/13 at 0900, Cath (Day of Procedure), Routine 0900 (Given - Provider: Rahul Perez RN) insulin aspart (novoLOG) PEN injection 3-12 Units (CANCELED) 3-12 Units, Subcutaneous, 4 TIMES DAILY BEFORE MEALS & NIGHTLY, First dose on 06/11/13 at 0145, Until Discontinued, CORRECTION BOLUS Resistant to insulin obese patient and TDD (total daily dose of all insulin needed to achieve glycemic control) greater than 60 units BG 140 - 160 Give 3 units BG 161 - 200 Give 6 units BG 201 - 240 Give 9 units BG greater than 240, give 12 units and recheck BG in 2 hours. If BG remains greater than 240, repeat 12 units (no more than three times) & call for new basal insulin orders. If less than 240 after two hours, give no insulin and resume prior schedule. , Routine 0145 (Not Given - Provider: Marisol Muñoz, CHRISTINA - Reason: Contraindicated)0730 (Not Given - Provider: Rahul Perez RN - Reason: NPO)1130 (Not Given - Provider: Alice Calloway RN - Reason: NPO)1730 (Given - Provider: Ena Jasmine, RN)2053 (Given - Provider: Dara Perry, CHRISTINA) 0814 (Not Given - Provider: Pilar Patel RN - Reason: Order parameters not met)1130 (Due) metoprolol tartrate (LOPRESSOR) tablet 25 mg (CANCELED) 25 mg, Oral, EVERY 6 HOURS SCHEDULED, First dose on 06/11/13 at 0145, Until Discontinued, Hold if SBP < 100 or HR < 60, Routine 0145 (Not Given - Provider: Marisol Muñoz RN - Reason: Contraindicated)0623 (Not Given - Provider: Marisol Muñoz RN - Reason: Contraindicated)1200 (Not Given - Provider: Alice Calloway RN - Reason: Order parameters not met - Comment: HR 53)1800 (Not Given - Provider: Ena Jasmine, RN - Reason: Order parameters not met) 0026 (Given - Provider: Dara Perry, RN)0600 (Not Given - Provider: Dara Perry, CHRISTINA - Reason: Order parameters not met)1200 (Due) rosuvastatin (CRESTOR) tablet 40 mg (CANCELED) 40 mg, Oral, EVERY EVENING, First dose on 06/11/13 at 1700, Until Discontinued, Routine 1735 (Given - Provider: Ena Jasmine, CHRISTINA) sodium chloride 0.9 % flush 5 mL (CANCELED) 5 mL, Intravenous, EVERY 12 HOURS, First dose on 06/11/13 at 0145, Until Discontinued 0145 (Given - Provider: Marisol Muñoz RN)1345 (Given - Provider: Alice Calloway, CHRISTINA) 0145 (Given - Provider: Dara Perry, CHRISTINA) Continuous Medication Order 06/10/2013 06/11/2013 06/12/2013 heparin 25,000 units in dextrose 5% 500 mL infusion (CANCELED) 350-7,000 Units/hr (rounded to 7-140 mL/hr), Intravenous, CONTINUOUS, Starting on 06/11/13 at 0145, Until 06/11/13 at 1137, Patient Weight 85-89 kg Initial dose - 1,000 units/hr = 20 mL/hr PTT less than 60 sec - increase by 350 units/hr = 7 mL/hr PTT 60-79 sec- increase by 150 units/hr = 3 mL/hr PTT 80-114 sec - no change PTT 115-129 sec - decrease by 100 units/hr = 2 mL/hr PTT 130-145 sec - stop infusion for 30 min then decrease by 150 units/hr = 3 mL/hr PTT greater than 145 sec - stop infusion for 60 min then decrease by 250 units/hr = 5 mL/hr PTT greater than 145 sec X 2 - call dye house worker See Bolus dosing guidance for aPTT values less than 80 seconds under PRN medications, Routine 0115 (New Bag - Provider: Marisol Muñoz, RN)0218 (Paused - Provider: Marisol Muñoz, RN)0318 (Rate/Dose Change - Provider: Marisol Muñoz, CHRISTINA) nitroGLYcerin 50 mg in dextrose 5% 250 mL infusion (CANCELED) 0-100 mcg/min (rounded to 0-30 mL/hr), Intravenous, CONTINUOUS, Starting on 06/11/13 at 0145, Until 06/11/13 at 1137, Maximum dose: 200 mcg/min, Routine 0115 (New Bag - Provider: Marisol Muñoz, CHRISTINA)0149 (Rate/Dose Change - Provider: Marisol Muñoz, RN)0232 (Rate/Dose Change - Provider: Marisol Muñoz, CHRISTINA)0400 (Stopped - Provider: Marisol Muñoz RN) sodium chloride 0.9% infusion (CANCELED) 200 mL/hr, Intravenous, CONTINUOUS, Starting on 06/11/13 at 0900, Until 06/11/13 at 1137, Cath (Day of Procedure) 0840 (New Bag - Provider: Jaylen Perez RN) sodium chloride 0.9% infusion () 125 mL/hr, Intravenous, CONTINUOUS, Starting on 06/11/13 at 1200, Until 06/11/13 at 1759 1200 (New Bag - Provider: Aviva Calloway, CHRISTINA) PRN Medication Order 06/10/2013 06/11/2013 06/12/2013 fentaNYL 50mcg/mL injection (CANCELED) ONCE PRN, Starting on 06/11/13 at 1058, Until 06/11/13 at 1132, Pain, Intra-Operative (Intra-Procedure), Routine 1058 (Given - Provider: Ramsey Arshad Jr.) iohexol (OMNIPAQUE) 350 mg iodine/mL injection (CANCELED) ONCE PRN, Starting on 06/11/13 at 1128, Until 06/11/13 at 1132, Per Protocol, Cath (Intra-Procedure), Routine 1128 (Given - Provider: Obed Oconnor MD) lidocaine (XYLOCAINE) 10 mg/mL (1 %) injection (CANCELED) ONCE PRN, Starting on 06/11/13 at 1058, Until 06/11/13 at 1132, Cath (Intra-Procedure), Routine 1058 (Given - Provider: Jewel Ayon) midazolam (VERSED) injection (CANCELED) ONCE PRN, Starting on 06/11/13 at 1058, Until 06/11/13 at 1132, Sleep, Cath (Intra-Procedure), Routine 1058 (Given - Provider: Ramsey Arshad Jr.) morphine 2 mg/mL carpuject 2 mg (CANCELED) 2 mg, Intravenous, EVERY 4 HOURS PRN, Starting on 06/11/13 at 0109, Until 06/12/13 at 1415, Pain, Routine 0120 (Given - Provider: Chasity Muñoz RN) documented in this encounter
--- OUTSIDE RECORDS SUMMARY | 2024-05-02 14:26 | XMS_ITS | Encounter Summary ---
Author Organization [facility] Address [facility] [place] [address] Care Team Providers Care Gas Main And Line Fitter Name Role Phone Unavailable Primary Care Provider Unavailabl e Encounter Details Date Type Department Care Team (Late st Contact Info) Description 08/06/2010 10:00 AM EST Office Visit [address] [phone] Ari Mabry MD [facility] [place] [address] Social History Tobacco Use Types Packs/Day Years [...] PM EST Office Visit Cardiology at [address] [phone] Delta Reyes MD [facility] [place] [address] documented as of this encounter Visit Diagnoses Not on filedocumented in this encounter
--- OUTSIDE RECORDS SUMMARY | 2024-05-02 14:26 | XMS_ITS | Encounter Summary ---
Author Organization [facility] Address [facility] [place] [address] Care Team Providers Care Food And Beverage Assistant Manager Name Role Phone Unavailable Primary Care Provider Unavailabl e Encounter Details Date Type Department Care Team (Late st Contact Info) Description 09/08/2015 Telephone [place] [phone] Phillip Jones MD [facility] [place] [address] Social History Tobacco Use Types Packs/Day Years Used Date Smoking Tobacco: Former Alcohol Use Standard Drinks/Week Comments Yes 0 (1 standard drink = 0.6 oz pur e alcohol) social Sex and Gender Information Value Date Recorded Sex Assigned at Not on file Gender Identity Not on file Sexual Orientation Not on file documented as of this encounter Miscellaneous Notes * Telephone Encounter - Phillip Jones MD - 09/08/2015 12:07 AM EST TELEPHONE NOTE: Rosalie Boyle MD [facility] 12:08 AM Patient is a 70 yo F w/DM2 presenting to OSH with headaches. She has been having headaches often for the last few months.Today has described burning sensation over the face, right posterior scalp andwrapping around right side of chest/face. She feels nauseous and dizzy when moving her head. She isalso complaining if decreased sensation over the right side of her face. Also has some word findingdifficulties today. On exam her vitals are unremarkable, as is her exam, she is neurologically intact. Her labs are also benign, creatinine is 1.0. She has had a normal Head CT. I was asked about possibility that she could be having BPPV. While this may cause the vertigo and nausea, I don't think the sensory symptoms can be explained by a peripheral process. I recommended getting a CTA Head and Neck to r/o an acute thrombus in the basilar, and get an MRI Brain wo contrast to evaluate for stroke. PHILLIP JONES MD PGY 3 Neurology documented in this encounter Plan of Treatment Upcoming Encounters Date Type Department Care Team (Late st Contact Info) Description 07/06/2024 1:30 PM EST Office Visit Cardiology at [address] [phone] Delta Reyes MD [facility] [place] [address] documented as of this encounter Visit Diagnoses Not on filedocumented in this encounter
--- OUTSIDE RECORDS SUMMARY | 2024-05-02 14:26 | XMS_ITS | Encounter Summary ---
Author Organization [facility] Address [facility] [place] [address] Care Team Providers Care Buttonhole Tacker Name Role Phone Unavailable Primary Care Provider Unavailabl e Encounter Details Date Type Department Care Team (Latest Contact Info) Description 06/11/2013 12:58 AM EST - 06/12/2013 12:10 PM EST Hospital Encounter Intermediate [place] [id number] Jennifer Andersen MD [facility] [place] [address] Chest pain Discharge Disposition: Home Social History Tobacco [...] appointments: During 8am-5pm Thursday through Thursday call [phone] to speak with a nurse in the cardiology clinic All other times call [phone] and ask to speak to the manager terminal sales person. Return to work: One week Driving: No driving for 48 hours after catheterization. Follow up Appointments: PCP JENNIFER FREITAS MD Please call to schedule appointment for this coming week Right Of Way Supervisor Dr Mabry as scheduled in the beginning of the year Home oxygen therapy: N/A Arrangements for VNA/home care: none * Attachments The following attachments cannot be sent through Care Everywhere. * PERCUTANEOUS CORONARY INTERVENTION: WHAT TO EXPECT AT HOME (SWEDISH) documented in this encounter Medications at Time [...] Progress Note Patient Name: Lou Mo Service: CORRECTIONAL SUPERVISING COOK / PA Responsible Attending: Jennifer Andersen MD [...] EST 0130- pt arrived via [facility] from [facility]. C/0 1-2/10 chest pain. NTG and heparin [...] was getting worse and she went to [facility] today. Ms. Mo endorses nausea for last [...] UFH drip was started On transfer to [facility] the patient was chest pain free and [...] chest pain which brought her to the [facility]. CAD, Unstable angina, History of atypical chest pain. she had 2 LHCs the first in 1995 showed normal coronaries and LV and the last LHC was 05/2010 showed non-obstructive disease and at one point musculoskeletal chest pain was considered. The patient had exquisite precordial chest wall tenderness. Relevant [facility] records and available transfer records, EKG and labs from the OS were reviewed. Previous LHC: 05/2010 non-obstructive coronary artery disease. Normal left ventricular function (Calculated EF-68%) 12/1995 Normal coronary arteries. Normal left ventricular function ( Calculated EF-74%) EKG: sinus john 55. Cardiac biomarkers: OS Troponin I < 0.3; [facility] Troponin- T < 0.03 , CK 64 In the OSH [facility] ED the patient was given ASA 324 [...] of events (all-cause mortality, new or recurrent FL, or severe recurrent ischemia requiring revascularization) at [...] 06/13/2013 8:48 AM ESTAssociated Order(s): SCAN DOC: SALVAGE SUPERVISOR * Provider, Scanning - 06/13/2013 6:59 AM [...] 8:48 AM EST * Discharge Summary - Anali Baldo L, CORE LOADER - 06/12/2013 8:41 AM EST Images from [...] was getting worse and she went to [facility] today. Ms. Mo endorses nausea for last [...] UFH drip was started On transfer to [facility] the patient was chest pain free and [...] angiography. The patient went to the cardiac wood and wood products labourer for a diagnostic cath which showed mild [...] appointments: During 8am-5pm Thursday through Thursday call [phone] to speak with a nurse in the cardiology clinic All other times call [phone] and ask to speak to the manager terminal sales person. Return to work: One week Driving: No driving for 48 hours after catheterization. Follow up Appointments: PCP JENNIFER FREITAS MD Please call to schedule appointment for this coming week Right Of Way Supervisor Dr Mabry as scheduled in the beginning of the year Home oxygen therapy: N/A Arrangements for VNA/home care: none Provider Contact Information: BALDO PUCKETT APRN [phone] Discharge References/Attachments: Discharge References/Attachments None Signed: Baldo Puckett APRN 06/12/2013 documented in this encounter Plan of Treatment Upcoming Encounters Date Type Department Care Team (Late st Contact Info) Description 07/06/2024 1:30 PM EST Office Visit Cardiology at [address] [phone] Delta Reyes MD [facility] [place] [address] documented as of this encounter Procedures Procedure Name Priority Date/Time Associated Diagnosis Comments SALVAGE SUPERVISOR SCAN 06/13/2013 8:48 AM EST POCT GLUCOSE [...] Routine 06/11/2013 1:19 PM EST CARDIAC ENZYMES ([facility]/CGP) STAT 06/11/2013 1:15 PM EST CARDIAC CATHETERIZATION Routine 06/11/20 13 11:32 AM EST DIFFERENTIAL, AUTOMATED Routine 06/11/20 13 8:05 AM EST CARDIAC ENZYMES ([facility]/CGP) STAT 06/11/2013 8:05 AM EST APTT STAT 06/11/2013 8:05 AM EST CBC (WITH DIFF) Routine 06/11/2013 8:05 AM EST TRIGLYCERIDE Routine 06/11/2013 8:05 AM EST LDL CHOLESTEROL, DIRECT Routine 06/11/20 8:05 AM EST HDL/CHOL PROFILE Routine 06/11/2013 [...] in this encounter Results * SCAN DOC: SALVAGE SUPERVISOR (06/13/2013 8:48 AM EST) Anatomical Region Laterality Modality Other Narrative 06/13/2013 9:47 AM EST Procedure Note Provider, Scanning - 06/13/2013 8:48 AM EST Scanning Provider MEDIA MGR SCAN EXT O RDR/RSLT * POCT Glucose (06/12/2013 11:43 AM EST) Glucose, POC 169 60 - 199 mg/dL [facility] Comment: Supplemental ranges: <110 mg/dL before meals <200 mg/dL all other times of the day Blood specimen (specimen) 06/12/2013 11:43 AM EST 06/12/2013 11:43 AM EST Jennifer Andersen MD POINT OF CARE TEST O RDERABLES Performing Organization Address [facility] de Phone Number [facility] * POCT Glucose (06/12/2013 7:48 AM EST) Glucose, POC 121 60 - 199 mg/dL [facility] Comment: Supplemental ranges: <110 mg/dL before meals <200 mg/dL all other times of the day Blood specimen (specimen) 06/12/2013 7:48 AM EST 06/12/2013 7:48 AM EST Jennifer Andersen MD POINT OF CARE TEST O RDERABLES Performing Organization Address [facility] Phone Number [facility] * EKG 12 Lead (06/12/2013 7:07 AM EST) Ventricular rate 61 BPM MUSE SYSTEM Atrial Rate 61 BPM MUSE SYSTEM P-R Interval 172 ms MUSE SYSTEM QRS Duration 84 ms MUSE SYSTEM Q-T Interval 400 ms MUSE SYSTEM QTC Calculated (Bezet) 402 ms MUSE SYSTEM Calculated P Cambridge 33 degrees MUSE SYSTEM Calculated R Cambridge -8 degrees MUSE SYSTEM Calculated T Cambridge 33 degrees MUSE SYSTEM INTERPRETATION Normal sinus [...] BMP w/fasting Glucose (06/12/2013 3:43 AM EST) [facility] Glucose Fasting 122(H) 65 - 99 mg/dL [...] of Diabetes Mellitus, Position Statement from the [place] Diabetes Association. ??Diabetes Care, Volume 33, Supplement 1, Aug 2009 Blood Urea Nitrogen 14 8 - 18 mg/dL [facility] MILLENNIUM Creatinine 0.82 0.70 - 1.20 mg/dL [facility] MILLENNIUM Comment: Please note that the pediatric reference intervals supplied above were not validated at [facility]. Results from pediatric patients should be interpreted [...] Andersen MD CHEMISTRY ORDERABLES Performing Organization Address City/[facility]/ZIP Co de Phone Number CERECTOR MILLENNIUM * (ABNORMAL) CBC (with Diff) (06/12/2013 3:43 [...] Lab Jennifer Andersen MD HEMATOLOGY ORDERABLE S [facility]ERECTOR REINADILEEPIUM * XR spine thoracic 2 views (06/11/2013 [...] Glucose, POC 153 60 - 199 mg/dL [facility] Comment: Supplemental ranges: <110 mg/dL before meals <200 mg/dL all other times of the day Blood specimen (specimen) 06/11/2013 8:02 PM EST 06/11/2013 8:02 PM EST Jennifer Andersen MD POINT OF CARE TEST O JENIFER Performing Organization Address [facility] de Phone Number [facility] * POCT Glucose (06/11/2013 4:47 PM EST) Glucose, POC 149 60 - 199 mg/dL [facility] Comment: Supplemental ranges: <110 mg/dL before meals <200 mg/dL all other times of the day Blood specimen (specimen) 06/11/2013 4:47 PM EST 06/11/2013 4:47 PM EST Jennifer Andersen MD POINT OF CARE TEST O RDERADEBI Performing Organization Address [facility]/ZIP Co de Phone Number [facility] * POCT Glucose (06/11/2013 1:19 PM EST) Glucose, POC 116 60 - 199 mg/dL [facility] Comment: Supplemental ranges: <110 mg/dL before meals <200 mg/dL all other times of the day Blood specimen (specimen) 06/11/2013 1:19 PM EST 06/11/2013 1:19 PM EST Jennifer Andersen MD POINT OF CARE TEST O RDERABLES Performing Organization Address [facility] Phone Number [facility] * Cardiac Enzymes (06/11/2013 1:15 PM EST) Pathologist [facility] Troponin-T <0.03 <=0.03 ng/mL [facility] Comment: 0.03 ng/mL: Represents the 99th percentile upper reference limit for normals. >0.03 ng/mL: Elevated cardiac troponin T level indicative of myocardial damage. Diagnosis of acute, evolving or recent FL requires a typical rise and gradual fall [...] consensus document of the Joint Society of Cardiology/[place] College of Cardiology Committee for the redefinition of myocardial infarction. Journal of the [place] College of Cardiology 2000; 36: 959-969] Creatine Kinase 58 0 - 160 unit/L [facility] Blood specimen (specimen) 06/11/2013 1:15 PM EST 06/11/2013 1:25 PM EST Narrative Resulting Agency Comment Spec In Lab Jennifer Andersen MD CHEMISTRY ORDERABLES Performing Organization Address [facility] de Phone Number [facility] * Cardiac Catheterization (06/11/2013 12:19 PM EST) [...] Andersen MD CHEMISTRY ORDERABLES [facility] MILLENNIUM * Lipase (06/11/2013 8:05 AM [...] EST Shawanda Lucio MD HEMATOLOGY ORDER JOSÉ [facility] * (ABNORMAL) Basic Metabolic Panel (non-fasting) (06/11/2013 8:05 AM EST) [facility] Glucose 120 60 - 199 mg/dL [facility] MILLENNIUM Comment:Diabetes: >=200 mg/d L plus symptoms Blood Urea Nitrogen 13 8 - 18 mg/dL [facility] MILLENNIUM Creatinine 0.80 0.70 - 1.20 mg/dL [facility] MILLENNIUM Comment: Please note that the pediatric reference intervals supplied above were not validated at [facility]. Results from pediatric patients should be interpreted [...] MD CHEMISTRY ORDERA BLES Performing Organization Address [facility] Co de Phone Number BEHZAD [employer] Authentication TechnologiesENNIUM * (ABNORMAL) APTT (06/11/2013 8:05 AM EST) Partial Thromboplastin Time 104(H) 25 - 35 sec [facility] MILLENNIUM Comment: Recommended therapeutic PTT range for full dose unfractionated heparin is 80-114 seconds. Blood specimen (specimen) 06/11/2013 8:05 AM EST 06/11/2013 8:27 AM EST Narrative Resulting Agency Comment Spec In Lab Jennifer Andersen MD HEMATOLOGY ORDERABLE S Performing Organization Address [facility] Co de Phone Number CERECTOR [employer]hentication TechnologiesENNIUM * (ABNORMAL) CBC (with Diff) (06/11/2013 8:05 AM EST) Pathologist [facility] White Blood Cell 6.0 4.0 - 10.0 x10(3)/mc L [facility] Red Blood Cell 3.84(L) 3.93 - 5.22 x10(6)/mc L [facility] Hemoglobin 11.6 11.2 - 15.7 gm/dL [facility] Hematocrit 34.7 34.0 - 45.0 % [facility] M[facility] Mean Cell Volume 90.4 79.0 - 94.0 fL [facility] MILLENNIUM Mean Cell Hemoglobin 30.2 26.6 - 32.2 pg [facility] Mean Cell Hemoglobin Concentration 33.4 32.0 - 36.5 gm/dL [facility] Platelet 110(L) 145 - 370 x10(3)/mc L [facility] RDW Standard Deviation 42.3 35.0 - 46.0 fL [facility] MILLENNIUM RDW coefficient of variation 13.0 10.9 - 14.4 % [facility] MILLENNIUM Mean Platelet Volume 10.7 9.0 - 12.0 fL [facility] MILLENNIUM Blood specimen (specimen) 06/11/2013 8:05 AM EST 06/11/2013 8:27 AM EST Narrative Resulting Agency Comment Spec In Lab Jennifer Andersen MD HEMATOLOGY ORDERABLE S [facility] * (ABNORMAL) Glucose, fasting (06/11/2013 8:05 AM EST) Pathologist [facility] Glucose Fasting 120(H) 65 - 99 mg/dL [facility] Comment: ?Fasting* Glucose Interpretive Criteria Normal ?65-99 [...] of Diabetes Mellitus, Position Statement from the [place] Diabetes Association. ??Diabetes Care, Volume 33, Supplement 1, Aug 2009 Blood specimen (specimen) 06/11/2013 8:05 AM EST 06/11/2013 8:27 AM EST Narrative Resulting Agency Comment Spec In Lab Shawanda Lucio MD CHEMISTRY ORDERHeber CARRERA Performing Organization Address City/[facility] Co de Phone Number [facility] * Triglyceride (06/11/2013 8:05 AM EST) Triglyceride 127 <=149 mg/dL [facility] Comment: Reference Range: Normal triglycerides: ??<150 mg/dL Borderline high: ??150-199 mg/dL High: ??200-499 mg/dL Very high: ??>vj=714 mg/dL LUIS F 2000; 285(19):6413-5821 Blood specimen (specimen) 06/11/2013 8:05 AM EST 06/11/2013 8:27 AM EST Narrative Resulting Agency Comment Spec In Lab Shawanda Lucio MD CHEMISTRY ORDERHeber CARRERA Performing Organization Address [facility] Co de Phone Number [facility] * (ABNORMAL) HDL/Cholesterol Profile (06/11/2013 8:05 AM EST) Cholesterol, Total 153 <=199 mg/dL [facility] Comment: Recommendations of the NCEP Adult Treatment Panel for the following risk cutoff thresholds for the [place] population: Desirable: <200 mg/dL Borderline High: 200-239 mg/dL High: > or = 240 mg/dL HDL Cholesterol 39(L) >=40 mg/dL [facility] Comment: Reference range: ??Low HDL: ?? < 40 mg/dL ??Normal: ?40-60 mg/dL ??Desirable: > 60 mg/dL LUIS F 2001; 285(19):0086-8842 Cholesterol/HDL Ratio 3.9 ratio CERNER MILLENNIUM Comment: A Cholesterol to HDL ratio below 4:1 is desirable. ??Studies suggest that increased CAD risk occurs at ratios above 5 for females and above 6 for men. ? [place] Heart Association ??(http://www.americanheart.org) ? Maura Int Med, 1994; 121:641 ? AM J Med, 1998; 105(1A):48S Blood specimen (specimen) 06/11/2013 8:05 AM EST 06/11/2013 8:27 AM EST Narrative Resulting Agency Comment Spec In Lab Shawanda Lucio MD CHEMISTRY JOSE CARRERA Performing Organization Address [facility] Co de Phone Number [facility] * (ABNORMAL) LDL Cholesterol, Direct (06/11/2013 8:05 AM EST) LDL Cholesterol, Direct 100(H) <=99 mg/dL CERNER [employer]ENNIUM Comment: The National Cholesterol Education Program (NCEP) has set the following guidelines for LDL Cholesterol: Reference range: ?? Optimal: ?<100 mg/dL ?? Near Optimal/Above Optimal: ?? 100-129 mg/dL ?? Borderline high: ?130-159 mg/dL ?? High: ? 160-189 mg/dL ?? Very high: ?>bj=169 mg/dL LUIS F 2001: 285(19):1488-1992 Blood specimen (specimen) 06/11/2013 8:05 AM EST 06/11/2013 8:27 AM EST Narrative Resulting Agency Comment Spec In Lab Shawanda Lucio MD CHEMISTRY JOSE CARRERA Performing Organization Address City/[facility]/ZIP Co de Phone Number [facility] * (ABNORMAL) Hemoglobin A1c (06/11/2013 8:05 AM EST) [facility] Hemoglobin A1c 7.1(H) 4.3 - 6.1 % [facility] Comment: The [place] Diabetes Association (ADA) has stated that HbA1c [...] 2013:36;suppl 1:S11-S66. Estimated Average Glucose 157 mg/dL [facility] Comment: eAG equivalents for HbA1c percentages: [...] into estimated average glucose values. ??Diabetes Care 2008:31(8):8686-7486. Blood specimen (specimen) 06/11/2013 8:05 AM EST 06/11/2013 8:27 AM EST Narrative Resulting Agency Comment Spec In Lab Shawanda Lucio MD CHEMISTRY ORDERA BLES Performing Organization Address [facility] Co de Phone Number [facility] * Cardiac Enzymes (06/11/2013 8:05 AM EST) Troponin-T <0.03 <=0.03 ng/mL [facility] Comment: 0.03 ng/mL: Represents the 99th percentile upper reference limit for normals. >0.03 ng/mL: Elevated cardiac troponin T level indicative of myocardial damage. Diagnosis of acute, evolving or recent FL requires a typical rise and gradual fall [...] consensus document of the Joint Society of Cardiology/[place] College of Cardiology Committee for the redefinition of myocardial infarction. Journal of the [place] College of Cardiology 2000; 36: 959-969] Creatine Kinase 62 0 - 160 unit/L [facility] Blood specimen (specimen) 06/11/2013 8:05 AM EST 06/11/2013 8:27 AM EST Narrative Resulting Agency Comment Spec In Lab Jennifer Andersen MD CHEMISTRY ORDERABLES Performing Organization Address [facility] Co de Phone Number [facility] * POCT Glucose (06/11/2013 8:02 AM EST) Glucose, POC 120 60 - 199 mg/dL [facility] Comment: Supplemental ranges: <110 mg/dL before [...] MD CHEMISTRY ORDERA BLES Performing Organization Address [facility] Co de Phone Number CERNER MILLENNIUM * [...] Gran Absolute 0.01 0.00 - 0.05 x10(3)/mcL [facility] Blood specimen (specimen) 06/11/2013 1:42 AM EST 06/11/2013 1:48 AM EST Shawanda Lucio MD HEMATOLOGY ORDER JOSÉ Performing Organization Address [facility] Phone Number [facility] * (ABNORMAL) pro-Brain Natriuretic Peptide (06/11/2013 1:42 AM EST) NT-proBNP 358(H) <=125 pg/mL [facility] Blood specimen (specimen) 06/11/2013 1:42 AM EST 06/11/2013 1:48 AM EST Narrative Resulting Agency Comment Spec In Lab Shawanda Lucio MD CHEMISTRY ORDERA BLES Performing Organization Address [facility] Phone Number [facility] * (ABNORMAL) APTT (06/11/2013 1:42 AM EST) Partial Thromboplastin Time 156(Criti rashid) 25 - 35 sec [facility] Comment: Called by: ZO, Read back by: DAVON MUÑOZ, Date/Time:06/11/13 02:16. Recommended therapeutic PTT range for full dose unfractionated heparin is 80-114 seconds. Blood specimen (specimen) 06/11/2013 1:42 AM EST 06/11/2013 1:48 AM EST Narrative Resulting Agency Comment Spec In Lab Shawanda Lucio MD HEMATOLOGY ORDER JOSÉ Performing Organization Address [facility] Phone Number [facility] * Prothrombin Time (06/11/2013 1:42 AM EST) Prothrombin Time 14.8 12.0 - 15.0 sec [facility] Comment: [facility] Transfusion Committee Guidelines: INR less than 2.0, [...] MD HEMATOLOGY ORDER JOSÉ Performing Organization Address [facility] Co de Phone Number CERECTOR HUANGENNIUM * [...] MD HEMATOLOGY ORDER JOSÉ Performing Organization Address City/[facility]/ZIP Co de Phone Number BEHZAD HUANGENNIUM * Magnesium (06/11/2013 1:42 AM EST) Magnesium 0.78 0.69 - 1.07 mmol/L [facility] MILLENNIUM Blood specimen (specimen) 06/11/2013 1:42 AM EST 06/11/2013 1:48 AM EST Narrative Resulting Agency Comment Spec In Lab Shawanda Lucio MD CHEMISTRY ORDERHeber CARRERA [facility] * (ABNORMAL) BMP w/fasting Glucose (06/11/2013 1:42 AM EST) Glucose Fasting 128(H) 65 - 99 mg/dL [facility] MILLENNIUM Comment: ?Fasting* Glucose Interpretive [...] of Diabetes Mellitus, Position Statement from the [place] Diabetes Association. ??Diabetes Care, Volume 33, Supplement 1, Aug 2009 Blood Urea Nitrogen 16 8 - 18 mg/dL [facility] MILLENNIUM Creatinine 0.82 0.70 - 1.20 mg/dL [facility] MILLENNIUM Comment: Please note that the pediatric reference intervals supplied above were not validated at [facility]. Results from pediatric patients should be interpreted in conjunction to the patient's age, height and muscle mass. Sodium 141 135 - 145 mmol/L [facility] MILLENNI[facility] Potassium 3.8 3.5 - 5.0 mmol/L [...] In Lab Shawanda Lucio MD CHEMISTRY ORDERA [facility] J[facility] * Cardiac Enzymes (06/11/2013 1:42 AM EST) Troponin-T <0.03 <=0.03 ng/mL [facility] MILLENNIUM Comment: 0.03 ng/mL: Represents the 99th percentile upper reference limit for normals. >0.03 ng/mL: Elevated cardiac troponin T level indicative of myocardial damage. Diagnosis of acute, evolving or recent [place] requires a typical rise and gradual fall [...] consensus document of the Joint Society of Cardiology/[place] College of Cardiology Committee for the redefinition of myocardial infarction. Journal of the [place] College of Cardiology 2000; 36: 959-969] Creatine Kinase 64 0 - 160 unit/L BEHZAD JUÁREZ Blood specimen (specimen) 06/11/2013 1:42 AM EST 06/11/2013 1:48 AM EST Narrative Resulting Agency Comment Spec In Lab Jennifer Andersen MD CHEMISTRY ORDERABLES EBHZAD JUÁREZ * EKG 12 Lead (06/11/2013 1:30 AM EST) Ventricular rate 55 BPM MUSE SYSTEM Atrial Rate 55 BPM MUSE SYSTEM P-R Interval 186 ms MUSE SYSTEM QRS Duration 90 ms MUSE SYSTEM Q-T Interval 440 ms MUSE SYSTEM QTC Calculated (Bezet) 420 ms MUSE SYSTEM Calculated P Cambridge 29 degrees MUSE SYSTEM Calculated T Cambridge 32 degrees MUSE SYSTEM INTERPRETATION Sinus bradycardia Otherwise normal ECG When compared with ECG of 02-MAY-2010 15:49, No significant change was found Confirmed by MD Ganesh, Jennifer ([id number]) on 06/11/2013 3:27:40 PM MUSE SYSTEM 06/11/2013 1:30 AM EST 06/11/2013 3:27 PM EST Shawanda Lucio MD ECG ORDERABLES Performing Organization Address City/[facility]/ZIP Co de Phone Number MUSE SYSTEM documented in this encounter Visit Diagnoses Diagnosis Chest pain Chest pain, unspecified Chest pain Chest pain, unspecified Unstable angina Intermediate coronary syndrome documented in this encounter Administered Medications Inactive [...] Given 06/11/2013 9:00 AM EST 25 mg heparin (porcine) 25,000 unit/500 mL (50 unit/mL) [...] than 145 sec X 2 - call laundry housekeeping aide See Bolus dosing guidance for aPTT values [...] Given 06/11/2013 5:30 PM EST 3 Units metoprolol tartrate (LOPRESSOR) tablet 25 mg 25 mg, Oral, EVERY 6 HOURS SCHEDULED, First dose on 06/11/13 at 0145, Until Discontinued, Hold if SBP < 100 or HR < 60, Routine Given 06/12/2013 12:26 AM EST 25 mg morphine 2 mg/mL carpuject 2 mg [...] 06/11/13 at 0129, MARISOL PERAZA: cabinet override rosuvastatin (CRESTOR) tablet 40 mg 40 [...] 0900 (Given - Provider: Rahul Perez RN) 0825 (Given - Provider: Pilar Patel RN) clopidogrel (PLAVIX) tablet 75 mg (CANCELED) 75 mg, Oral, DAILY, First dose on 06/11/13 at 0900, Until Discontinued, Routine 0900 (Given - Provider: Rahul Perez RN) 0824 (Given - Provider: Pilar Patel RN) diaZEPam (VALIUM) tablet 5 mg (COMPLETED) 5 [...] - Provider: Marisol Muñoz RN - Reason: Contraindicated)0730 (Not Given - Provider: Rahul Perez RN - Reason: NPO)1130 (Not Given - Provider: Alice Calloway RN - Reason: NPO)1730 (Given - Provider: Ena Jasmine RN)2053 (Given - Provider: Dara Perry, CHRISTINA) [...] HR 53)1800 (Not Given - Provider: Ena Jasmine RN - Reason: Order parameters not met) 0026 (Given - Provider: Dara Perry RN)0600 (Not Given - Provider: Dara Perry RN - Reason: Order parameters not met)1200 (Due) rosuvastatin (CRESTOR) tablet 40 mg (CANCELED) 40 mg, Oral, EVERY EVENING, First dose on 06/11/13 at 1700, Until Discontinued, Routine 1735 (Given - Provider: Ena Jasmine RN) sodium chloride 0.9 % flush 5 mL (CANCELED) 5 mL, Intravenous, EVERY 12 HOURS, First dose on 06/11/13 at 0145, Until Discontinued 0145 (Given - Provider: Marisol Muñoz, RN)1345 (Given - Provider: Alice Calloway, RN) 0145 (Given - Provider: Dara Perry, CHRISTINA) [...] than 145 sec X 2 - call laundry housekeeping aide See [employer] dosing guidance for aPTT values less than 80 seconds under PRN medications, Routine 0115 (New Bag - Provider: Marisol Muñoz, CHRISTINA)0218 (Paused - Provider: Marisol Muñoz, CHRISTINA)0318 (Rate/Dose Change - Provider: Marisol Muñoz, RN) nitroGLYcerin 50 mg in dextrose 5% 250 mL infusion (CANCELED) 0-100 mcg/min (rounded to 0-30 mL/hr), Intravenous, CONTINUOUS, Starting on 06/11/13 at 0145, Until 06/11/13 at 1137, Maximum dose: 200 mcg/min, Routine 0115 (New Bag - Provider: Marisol Muñoz RN)0149 (Rate/Dose Change - Provider: Marisol Muñoz RN)0232 (Rate/Dose Change - Provider: Marisol Muñoz, RN)0400 (Stopped - Provider: Marisol Muñoz, CHRISTINA) sodium chloride 0.9% infusion (CANCELED) 200 mL/hr, Intravenous, CONTINUOUS, Starting on 06/11/13 at 0900, Until 06/11/13 at 1137, Cath (Day of Procedure) 0840 (New Bag - Provider: Jaylen Perez, CHRISTINA) sodium chloride 0.9% infusion () 125 mL/hr, Intravenous, CONTINUOUS, Starting on 06/11/13 at 1200, Until 06/11/13 at 1759 1200 (New Bag - Provider: Aviva Calloway, RN) PRN Medication Order 06/10/2013 06/11/2013 06/12/2013 [id number] [...] Pain, Routine 0120 (Given - Provider: Chasity Muñoz, CHRISTINA) documented in this encounter
[2024-05-02 19:49] LABS: ALT 20 U/L (14-59); Calculated LDL 149 mg/dL (<100); Cholesterol 227 mg/dL (<200); Glucose 378 mg/dL (74-106); HDL Cholesterol 44 mg/dL (40-60); TSH 2.18 uIU/Ml (0.36-3.74); Triglyceride 170 mg/dL (<150)
[2024-05-02 20:08] LABS: Creatine Kinase 95 U/L (26-192)
== END 2024-05-02 14:07 | disposition home or self-care (01) ==
LOC: NCHCN 14:06
PROVIDERS: PCP Internal Medicine; Visit Provider Internal Medicine
DX: R53.83 Other fatigue (principal)
CPT/HCPCS: 80061; 82550; 82947; 84443; 84460

== ENCOUNTER 2024-08-01 19:02 | Outpatient (REF) | payer MEDICARE, SELFPAY ==
[2024-08-01 19:32] LABS: Creatine Kinase 89 U/L (26-192)
[2024-08-01 19:42] LABS: Calculated LDL 110 mg/dL (<100); Cholesterol 183 mg/dL (<200); HDL Cholesterol 50 mg/dL (40-60); Triglyceride 116 mg/dL (<150)
== END 2024-08-01 19:03 | disposition home or self-care (01) ==
LOC: NCHCN 19:02
PROVIDERS: PCP Internal Medicine; Visit Provider Internal Medicine
DX: E78.5 Hyperlipidemia, unspecified (principal)
CPT/HCPCS: 80061; 82550

== ENCOUNTER 2025-05-25 16:05 | Outpatient (REF) | payer MEDICARE, SELFPAY ==
[2025-05-25 18:59] LABS: TSH (W/Ref FT4) 1.76 uIU/mL (0.36-3.74)
[2025-05-25 19:10] LABS: Calculated LDL 38 mg/dL (<100); Cholesterol 97 mg/dL (<200); HDL Cholesterol 47 mg/dL (>or=50); Triglyceride 61 mg/dL (<150)
[2025-05-25 19:35] LABS: COMMENT (LAB VIEW ONLY) 68.48 mg/dL; Microalb ug/mg Crea 15.0 ug/mg Cr
== END 2025-05-25 16:06 | disposition home or self-care (01) ==
LOC: NCHCN 16:05
PROVIDERS: PCP Internal Medicine; Visit Provider Nurse Practitioner Family
DX: E11.9 Type 2 diabetes mellitus without complications (principal); R42 Dizziness and giddiness
CPT/HCPCS: 80061; 82043; 82570; 84443